=== PATIENT | male | born 1955 | race Caucasian/White ===

== ENCOUNTER 2018-07-15 12:34 | Emergency (ER) | payer MEDICAID, SELFPAY ==
[2018-07-15] VITALS (29 sets, daily range): BP systolic 117–149; BP diastolic 68–91; PULSE 75–122; RESP 11–27; TEMP 37.3; O2SAT 95–100
[2018-07-15] MEDS: Ondansetron 4 MG/2 ML VIAL IVP (12:58)
[2018-07-15] MEDS: Normal Saline 1,000 ML 1000 ML IV (12:59)
[2018-07-15 13:00] LABS: Abs Immature Grans 0.03 k/cumm (0.0-0.09); Absolute Basophil Count 0.04 k/cumm (0.0-0.2); Absolute Eosinophil Count 0.02 k/cumm (0.0-0.7); Absolute Lymphocyte Count 0.98 k/cumm (1.2-3.4); Absolute Monocyte Count 0.66 k/cumm (0.11-0.7); Absolute Neutrophil Count 4.58 k/cumm (1.2-6.7); Basophils % 0.6; Eosinophils % 0.3; HCT 35.1 % (40.0-50.0); HGB 10.8 g/dL (13.5-17.5); Immature Grans % 0.5; Lymphocytes % 15.5; Mean Corp. HGB Concentration 30.8 g/dL (32.0-36.0); Mean Corpuscular Hemoglobin 27.6 pg (27.0-33.0); Mean Corpuscular Volume 89.5 fL (80-95); Mean Platelet Volume 10.9 fL (8.0-11.0); Monocytes % 10.5; Neutrophils % 72.6; Platelet Count 139 x1000/uL (130-400); RBC 3.92 m/cumm (4.50-6.00); White Blood Cell Count 6.31 k/cumm (4.4-10.8)
[2018-07-15] MEDS: PANTOPRAZOLE 80 MG in Normal Saline 100 ML 10 MG IV (13:11)
[2018-07-15 13:16] LABS: INR 1.5 (1.0-3.5); Prothrombin Time 14.5 sec (9.3-10.8)
[2018-07-15 13:17] LABS: ALT 52 U/L (12-78); AST 89 U/L (15-37); Albumin 2.4 g/dL (3.4-5.0); Alkaline Phosphatase 100 U/L (46-116); Anion Gap 9.9 mmol/L (3-11); BUN 22 mg/dL (7-18); Bilirubin, Total 1.7 mg/dL (0.2-1.0); CO2 26.1 mmol/L (21.0-32.0); CREATININE 0.92 mg/dL (0.70-1.30); Calcium 7.6 mg/dL (8.5-10.1); Chloride 103 mmol/L (98-107); Glucose 110 mg/dL (70-100); Lipase 159 U/L (73-393); Potassium 3.9 mmol/L (3.5-5.1); Sodium 139 mmol/L (136-145); Total Protein 7.6 g/dL (6.4-8.2)
--- NOTE | 2018-07-15 13:44 | DI.CT_ITS ---
SYMPTOM/DIAGNOSIS: ABD PAIN ABDOMEN AND PELVIC CT: There are no prior comparison exams. Images were performed from the lung bases through the ischial tuberosities after IV and without oral contrast. A 5 mm. nodule is seen peripherally at the posterior left lung base. There are mild changes of dependent atelectasis. The liver has a cirrhotic appearance. There is a question of a rounded mass near the dome of the liver. Other low density areas are seen which likely represent cysts. There is ascites around the liver and a small amount of fluid along the paracolic gutters into the pelvis. There is some fluid around the gallbladder. Gallstones are seen. There is no biliary dilatation. The adrenals and pancreas are unremarkable. There is a small lesion on the right kidney, too small to characterize. A cyst is noted at the upper and mid right kidney. There is no hydronephrosis. Multiple large diverticula are seen in the sigmoid colon. There is some surrounding fluid which is likely due to the ascites. No definite diverticulitis is seen. The appendix appears normal. There is no small bowel dilatation. The bladder is unremarkable. There are prostate calcifications. The aorta is normal in diameter. Small lymph nodes are noted in both groin regions. No pathologically enlarged lymph nodes are seen. There are degenerative changes of the spine, greatest at L 4-5 and L 5-S 1. IMPRESSION: 1. Nodular cirrhotic appearing liver with a question of a mass near the dome. An MRI could be performed for further evaluation. 2. Gallstones are identified. There are no definite findings of acute cholecystitis. 3. 5mm nodule in the left lower lobe. If the patient is at high risk for lung cancer, a follow up screening chest CT could be performed in 12 months.
--- NOTE | 2018-07-15 14:03 | W.ED.GENAD ---
Discharge Plan Disposition Patient Disposition: AGAINST MEDICAL ADVICE Condition: Poor Discharge Details Chief Complaint: GI Bleed Clinical Impression: Acute GI bleeding, Alcoholism, Abnormal CT of the abdomen Primary Care Provider: NONE,NONE ED Provider: Leanna Santillan Discharge Instructions Instructions: Gastritis (ED), Gastrointestinal Bleeding (ED), Anemia (ED), Alcohol Dependence (ED) Additional Instructions: You have elected to leave the emergency department AGAINST MEDICAL ADVICE. You may return to the emergency department at anytime if you change your mind. The risks of leaving AGAINST MEDICAL ADVICE are or permanent disability. It is extremely important that you make an appointment to be seen in follow-up by your primary care doctor this week. Please call [phone] if you have any problems scheduling this appointment. Please return immediately to the emergency department he develop any new or worsening symptoms were to become otherwise concerned. Discharge Data Discharge Date/Time-TO BE ENTERED AT DEPARTURE: 07/15/18 18:33 Medical Decision Making Eddago Henry is a 63 y/o man with h/o GI bleed in the past, etoh abuse, HTN who presented to the emergency department with hematemesis today, melena since yesterday. On exam Pt is non-toxic appearing with good color. Appears comfortable. Mild lower abd TTP without peroitoneal signs. Concern for UGIB 2/2 alcoholic gastritis vs varices vs PUD vs other, anemia, metabolic/lyte disturbance, possible impending onset of massive GIB, also unclear etiology of lower abd pain. Plan for PIVx2, IV protonix, IV octreotide, IVF, screening labs, telemetry, CT a/p. Will monitor and reassess. Pt declines anti-emetics. Pt without vomiting in ED. One small BM hemoccult+. Pt reports volume of BM much less than previous over past few days. Labs show anemia. Pt remains hemodynamically stable. Plan for CT. OSH records obtained. Will obtain 4hr H&H. CT shows ascites, possible liver Ca, pulm nodule, diffuse bowel thickening, gastritis. Discussed Pt presentation and results with Dr. Colon of surgery: no abx for colitis given clinical picture, likely 2/2 ascites, no other acute intervention based on imaging, Pt cannot be admitted to [facility] 2/2 possible varices and no bed availability. I discussed findings with the Pt. Pt reports that he has been aware of liver changes, pulm nodule, possible cancer for some time but does not want further work-up has refused biopsy several times in the past. No further BMs, no vomiting in ED. Pt reports that he feels at baseline. Plan for transfer for GIB/etoh dependency tx as if Pt goes home and continues to drink, likely that GIB will continue/worsen. Pt refuses admission/transfer. States that he wants to go home tonight and sleep in his bed, and will present to [facility] tomorrow for admission. I repeatedly told the Pt that he may not admitted tomorrow if he chooses this course. Pt reports that he prefers to go to [place], but also refuses to be transferred by ambulance. Explained to Pt that he would likely not be transferred to [place] in as many closer appropriate facilities. Repeatedly explained to Pt risk of , permanent disability if he chooses to leave against medical advice. Pt verbalizes understanding of risks, states that he wants to go home, and will present to [place] Ed if he has any further symptoms. Pt has decision making capacity. Lengthy discussion with Pt that he may RTED at any time if he changes his mind, RTED precautions, and importance of outpt f/u with PCP. Medical Records Medical records reviewed: Yes I reviewed the patient's medical records. Imaging Data Radiologic Study: Attestation: I personally reviewed and interpreted this imaging study as follows: Radiologist's impression: FINDINGS: Lower thorax: Series 7 image 9 demonstrates a nonspecific 5 mm left pulmonary nodule. There is atelectasis or scarring at the lung bases. Gas is noted in the distal esophagus which can be seen with reflux. There is esophageal wall prominence that can be seen with inflammation or pathology. ABDOMEN: Liver: There is a shrunken nodular appearance to the liver most consistent with cirrhotic morphology. On liver windows, there is a vaguely enhancing mass in the anterior hepatic dome, series 7 image 13, 4.5 cm, which demonstrates a central lucency. Malignant process such as hepatocellular carcinoma is not excluded. MRI, hepatic mass protocol, is recommended. Additional too small to characterize hypodensities are seen. Gallbladder and bile ducts: Gallstones are noted within the gallbladder with some associated pericholecystic fluid. This can be seen with cholecystitis in the appropriate clinical setting. Ultrasound could be considered. Pancreas: See Intraperitoneal Space Finding. Spleen: Normal. No splenomegaly. Adrenals: Bulky appearance to the left adrenal gland. Kidneys and ureters: 6.6 cm cystic structure in the right kidney which may contain a thin septation. 1.3 cm 30 Hounsfield unit hypodensity in the left kidney (series 7 image 26) which does not fulfill the criteria for a simple cyst. Renal mass protocol CT scan or ultrasound could be considered for further evaluation. Stomach and bowel: There is gastric wall prominence proximally. Although under distention may be contributing, there is a hazy appearance to the fat surrounding the stomach. Finding should therefore be correlated with any concern for gastritis or other abnormalities. Evaluation of the bowel is limited secondary to lack of oral contrast. There is some wall prominence to the duodenum and proximal jejunum in the left upper quadrant of the abdomen (series 7 image 34). Some associated fluid and prominent lymph nodes are seen. These loops of bowel measure up to 2.8 cm, mildly dilated. Subtle internal hernias are possible in this location. There is some wall prominence to the ascending and proximal transverse colon which should be correlated with any concern for colitis (infectious, inflammatory, or ischemic. There is sigmoid diverticulosis with some adjacent fluid. Stranding surrounds some diverticula in the descending colon. Appendix: The appendix is not clearly seen. PELVIS: Bladder: There is a punctate calcification in the anterior superior aspect of the urinary bladder. This may be within the urinary bladder wall and could place the patient at increased risk for malignancy. Reproductive: Prostatic calcifications are seen. ABDOMEN and PELVIS: Intraperitoneal space: There is perihepatic, perisplenic, and pelvic free fluid. Free fluid is also seen in between loops of bowel. There is haziness in the fat surrounding the pancreas which could be related to the fluid seen elsewhere. However, this should be correlated with any concern for pancreatitis. No free air. Bones/joints: Skeletal degenerative changes. Scattered punctate sclerotic foci in the bones. In the absence of known malignancy, these most likely represent bone islands. Disc space narrowing at L4-5 and L5-S1. There is corresponding gas in the disc spaces at these levels and at multiple additional levels. In the absence of concern for infection, this most likely represents vacuum phenomenon. Scoliosis. Soft tissues: Small fat-containing umbilical hernia. Vasculature: No abdominal aortic aneurysm. Vascular calcifications. Lymph nodes: See Stomach And Bowel Finding. IMPRESSION: 1. Cirrhotic liver morphology with a vaguely enhancing mass as described. Malignant process such as hepatocellular carcinoma is not excluded. MRI, hepatic mass protocol, is recommended. 2. Gallstones with pericholecystic fluid. This can be seen with cholecystitis in the appropriate clinical setting. Ultrasound could be considered. 3. Free fluid and areas of stranding in the abdomen and pelvis. This may be related to the patient's cirrhosis. Since portions surround the pancreas and descending/sigmoid colon diverticula, a component of pancreatitis or diverticulitis is not excluded. 4. Gastric wall prominence proximally. Although under distention may be contributing, there is a hazy appearance to the fat surrounding the stomach. Finding should therefore be correlated with any concern for gastritis. 5. Some wall prominence to the duodenum and proximal jejunum in the left upper quadrant. Some associated fluid and prominent lymph nodes are seen. These loops are mildly dilated. Finding should be correlated with any concern for enteritis or early/partial obstructive process. 6. Wall prominence to the ascending and proximal transverse colon which should be correlated with any concern for colitis (infectious, inflammatory, or ischemic). 7. Lesion in the left kidney which does not fill the criteria for a simple cyst. Other findings as above. Lab Data Lab results reviewed: Yes I reviewed the patient's lab results. Laboratory Tests Range/Units 07/15/18 07/15/18 07/15/18 12:45 12:45 12:45 WBC (4.4-10.8) k/cumm 6.31 RBC (4.50-6.00) m/cumm 3.92 L Hgb (13.5-17.5) g/dL 10.8 L Hct (40.0-50.0) % 35.1 L MCV (80-95) fL 89.5 MCH (27.0-33.0) pg 27.6 MCHC (32.0-36.0) g/dL 30.8 L RDW (11.8-14.1) % 16.0 H Plt Count (130-400) x1000/uL 139 MPV (8.0-11.0) fL 10.9 Immature Gran % 0.5 Neutrophils % 72.6 Lymphocytes % 15.5 Monocytes % 10.5 Eosinophils % 0.3 Basophils % 0.6 Absolute Neutrophils (1.2-6.7) k/cumm 4.58 Absolute Lymphocytes (1.2-3.4) k/cumm 0.98 L Absolute Monocytes (0.11-0.7) k/cumm 0.66 Absolute Eosinophils (0.0-0.7) k/cumm 0.02 Absolute Basophils (0.0-0.2) k/cumm 0.04 PT (9.3-10.8) sec 14.5 H INR (1.0-3.5) 1.5 Sodium (136-145) mmol/L 139 Potassium (3.5-5.1) mmol/L 3.9 Chloride (98-107) mmol/L 103 Carbon Dioxide (21.0-32.0) mmol/L 26.1 Anion Gap (3-11) mmol/L 9.9 BUN (7-18) mg/dL 22 H Creatinine (0.70-1.30) mg/dL 0.92 Estimated GFR/1.73 m2 (mL/min/1.73m2) >= 60.00 Glucose (70-100) mg/dL 110 H Calcium (8.5-10.1) mg/dL 7.6 L Total Bilirubin (0.2-1.0) mg/dL 1.7 H AST (15-37) U/L 89 H ALT (12-78) U/L 52 Alkaline Phosphatase (46-116) U/L 100 Total Protein (6.4-8.2) g/dL 7.6 Albumin (3.4-5.0) g/dL 2.4 L Lipase (73-393) U/L 159 Patient ABO/Rh Antibody Screen Range/Units 07/15/18 07/15/18 12:45 17:10 WBC (4.4-10.8) k/cumm RBC (4.50-6.00) m/cumm Hgb (13.5-17.5) g/dL 9.4 L Hct (40.0-50.0) % 30.1 L MCV (80-95) fL MCH (27.0-33.0) pg MCHC (32.0-36.0) g/dL RDW (11.8-14.1) % Plt Count (130-400) x1000/uL MPV (8.0-11.0) fL Immature Gran % Neutrophils % Lymphocytes % Monocytes % Eosinophils % Basophils % Absolute Neutrophils (1.2-6.7) k/cumm Absolute Lymphocytes (1.2-3.4) k/cumm Absolute Monocytes (0.11-0.7) k/cumm Absolute Eosinophils (0.0-0.7) k/cumm Absolute Basophils (0.0-0.2) k/cumm PT (9.3-10.8) sec INR (1.0-3.5) Sodium (136-145) mmol/L Potassium (3.5-5.1) mmol/L Chloride (98-107) mmol/L Carbon Dioxide (21.0-32.0) mmol/L Anion Gap (3-11) mmol/L BUN (7-18) mg/dL Creatinine (0.70-1.30) mg/dL Estimated GFR/1.73 m2 (mL/min/1.73m2) Glucose (70-100) mg/dL Calcium (8.5-10.1) mg/dL Total Bilirubin (0.2-1.0) mg/dL AST (15-37) U/L ALT (12-78) U/L Alkaline Phosphatase (46-116) U/L Total Protein (6.4-8.2) g/dL Albumin (3.4-5.0) g/dL Lipase (73-393) U/L Patient ABO/Rh A Negative Antibody Screen Negative ECG Data Attestation: I personally reviewed and interpreted this ECG (s) as follows: Interpretation: EKG shows ST at 113 with nl axis, no STEMI HPI General Mode of arrival: EMS. Date/Time Provider Initiated Documentation: 07/15/18 12:41. Limitations to Documentation: no limitations. Information obtained by: patient, RN notes reviewed and old records reviewed. HPI Narrative: Benjamín Henry is a 63 y/o man with h/o HTN, alcohol abuse, GI bleed in the past presenting to the emergency department with vomiting blood and dark stool. Pt reports that he noticed his stool was black and loose yesterday. This morning he began vomiting what he reports as significant amounts of bright red blood, with continued dark stool. He also reports lower abd pain since this morning. Pt reports that he drinks a lot of whiskey every night, and has drank large amounts of alcohol every night for decades except when he quit drinking for 6 months in 1982. He reports that he had a GI bleed in the past year with similar symptoms as today for which he had an EGD. Does not believe he had esophageal varices or any intervention during EGD. He reports that he has had several other episodes of black stool and vomiting blood which he has not sought care for and which have resolved on their own at home. He denies any other pain, fever, SOB, cough, rash, weakness, n/t. Last etoh was last night, denies withdrawal symptoms at this time. Pt reports that he feels somewhat better upon arrival in ED with no current nausea. Related Data Allergies Allergy/AdvReac Type Severity Reaction Status Date / Time No Known Allergies Allergy Unverified 07/15/18 13:02 General Stated Complaint: GI Bleed RYNE: 2 Review of Systems Review of Systems Constitutional: denies fevers Eyes: denies eye pain ENT: denies facial pain, dental pain, sore throat Cardiovascular: denies chest pain, edema Respiratory: denies SOB, cough GI: reports abdominal pain, hematemesis, melena : denies flank pain MSK: denies back pain, neck pain, arthralgias, myalgias Skin: denies rash Neuro: denies headaches, lightheadedness, weakness PFS Social History Smoking/Tobacco Use Status: Former Tobacco Use alcohol intake: current alcohol intake frequency: 3 or more drinks per day Alcohol type: hard liquor Exam Narrative Exam Narrative: Constitutional: well and [id number], pleasant, conversing normally HENT: head atraumatic, normocephalic normal inspection, mucous membranes moist Eyes: conjunctiva normal, sclera normal, pupils 3mm b/l Neck: no stridor, normal ROM, trachea midline Chest: normal inspection Resp: normal work of breathing, LCTAB Cardio: tachycardic, normal rhythm, no murmur appreciated GI: abdomen soft, non-distended, mildly TTP across lower abd without rebound, guarding, or upper abd TTP Back: normal inspection, no rash Skin: warm, dry, normal color, no rash Neuro: alert, not altered, oriented x3, grossly non-focal, normal tone Ext: no edema Psych: normal mood, normal affect, normal behavior Course Vital Signs Temperature 37.3 C 07/15/18 12:55 Pulse 110 H 07/15/18 12:55 Respiratory Rate 16 07/15/18 12:55 Blood Pressure 119/78 07/15/18 12:55 Pulse Oximetry 98 07/15/18 12:55 Temperature 37.3 C 07/15/18 12:55 Temperature Source Skin 07/15/18 12:55 Pulse 110 H 07/15/18 12:55 Respiratory Rate 16 07/15/18 12:55 Respiratory Effort 07/15/18 12:59 Blood Pressure 119/78 07/15/18 12:55 Blood Pressure Position Sitting 07/15/18 12:55 Pulse Oximetry 98 07/15/18 12:55 Oxygen Delivery Method Room Air 07/15/18 12:55 Oxygen Flow Rate 0 07/15/18 12:55 Lab/Test Results Lab/Test Results: Laboratory Tests Range/Units 07/15/18 07/15/18 07/15/18 12:45 12:45 12:45 WBC (4.4-10.8) k/cumm 6.31 RBC (4.50-6.00) m/cumm 3.92 L Hgb (13.5-17.5) g/dL 10.8 L Hct (40.0-50.0) % 35.1 L MCV (80-95) fL 89.5 MCH (27.0-33.0) pg 27.6 MCHC (32.0-36.0) g/dL 30.8 L RDW (11.8-14.1) % 16.0 H Plt Count (130-400) x1000/uL 139 MPV (8.0-11.0) fL 10.9 Immature Gran % 0.5 Neutrophils % 72.6 Lymphocytes % 15.5 Monocytes % 10.5 Eosinophils % 0.3 Basophils % 0.6 Absolute Neutrophils (1.2-6.7) k/cumm 4.58 Absolute Lymphocytes (1.2-3.4) k/cumm 0.98 L Absolute Monocytes (0.11-0.7) k/cumm 0.66 Absolute Eosinophils (0.0-0.7) k/cumm 0.02 Absolute Basophils (0.0-0.2) k/cumm 0.04 PT (9.3-10.8) sec 14.5 H INR (1.0-3.5) 1.5 Sodium (136-145) mmol/L 139 Potassium (3.5-5.1) mmol/L 3.9 Chloride (98-107) mmol/L 103 Carbon Dioxide (21.0-32.0) mmol/L 26.1 Anion Gap (3-11) mmol/L 9.9 BUN (7-18) mg/dL 22 H Creatinine (0.70-1.30) mg/dL 0.92 Estimated GFR/1.73 m2 (mL/min/1.73m2) >= 60.00 Glucose (70-100) mg/dL 110 H Calcium (8.5-10.1) mg/dL 7.6 L Total Bilirubin (0.2-1.0) mg/dL 1.7 H AST (15-37) U/L 89 H ALT (12-78) U/L 52 Alkaline Phosphatase (46-116) U/L 100 Total Protein (6.4-8.2) g/dL 7.6 Albumin (3.4-5.0) g/dL 2.4 L Lipase (73-393) U/L 159 Patient ABO/Rh Antibody Screen Range/Units 07/15/18 12:45 WBC (4.4-10.8) k/cumm RBC (4.50-6.00) m/cumm Hgb (13.5-17.5) g/dL Hct (40.0-50.0) % MCV (80-95) fL MCH (27.0-33.0) pg MCHC (32.0-36.0) g/dL RDW (11.8-14.1) % Plt Count (130-400) x1000/uL MPV (8.0-11.0) fL Immature Gran % Neutrophils % Lymphocytes % Monocytes % Eosinophils % Basophils % Absolute Neutrophils (1.2-6.7) k/cumm Absolute Lymphocytes (1.2-3.4) k/cumm Absolute Monocytes (0.11-0.7) k/cumm Absolute Eosinophils (0.0-0.7) k/cumm Absolute Basophils (0.0-0.2) k/cumm PT (9.3-10.8) sec INR (1.0-3.5) Sodium (136-145) mmol/L Potassium (3.5-5.1) mmol/L Chloride (98-107) mmol/L Carbon Dioxide (21.0-32.0) mmol/L Anion Gap (3-11) mmol/L BUN (7-18) mg/dL Creatinine (0.70-1.30) mg/dL Estimated GFR/1.73 m2 (mL/min/1.73m2) Glucose (70-100) mg/dL Calcium (8.5-10.1) mg/dL Total Bilirubin (0.2-1.0) mg/dL AST (15-37) U/L ALT (12-78) U/L Alkaline Phosphatase (46-116) U/L Total Protein (6.4-8.2) g/dL Albumin (3.4-5.0) g/dL Lipase (73-393) U/L Patient ABO/Rh A Negative Antibody Screen Negative
[2018-07-15] MEDS: Omnipaque 350 MG/ML 100 ML BTL IJ (16:29)
--- NOTE | 2018-07-15 17:01 | DI.VRAD_ITS ---
EXAM: CT Abdomen and Pelvis With Intravenous Contrast EXAM DATE/TIME: 07/15/2018 1:45 PM CLINICAL HISTORY: 63 years old, male; Pain; Abdominal pain; Generalized; Patient HX: Abd pain TECHNIQUE: Axial computed tomography images of the abdomen and pelvis with intravenous contrast. Coronal and sagittal reformatted images were created and reviewed. COMPARISON: No relevant prior studies available. FINDINGS: Lower thorax: Series 7 image 9 demonstrates a nonspecific 5 mm left pulmonary nodule. There is atelectasis or scarring at the lung bases. Gas is noted in the distal esophagus which can be seen with reflux. There is esophageal wall prominence that can be seen with inflammation or pathology. ABDOMEN: Liver: There is a shrunken nodular appearance to the liver most consistent with cirrhotic morphology. On liver windows, there is a vaguely enhancing mass in the anterior hepatic dome, series 7 image 13, 4.5 cm, which demonstrates a central lucency. Malignant process such as hepatocellular carcinoma is not excluded. MRI, hepatic mass protocol, is recommended. Additional too small to characterize hypodensities are seen. Gallbladder and bile ducts: Gallstones are noted within the gallbladder with some associated pericholecystic fluid. This can be seen with cholecystitis in the appropriate clinical setting. Ultrasound could be considered. Pancreas: See Intraperitoneal Space Finding. Spleen: Normal. No splenomegaly. Adrenals: Bulky appearance to the left adrenal gland. Kidneys and ureters: 6.6 cm cystic structure in the right kidney which may contain a thin septation. 1.3 cm 30 Hounsfield unit hypodensity in the left kidney (series 7 image 26) which does not fulfill the criteria for a simple cyst. Renal mass protocol CT scan or ultrasound could be considered for further evaluation. Stomach and bowel: There is gastric wall prominence proximally. Although under distention may be contributing, there is a hazy appearance to the fat surrounding the stomach. Finding should therefore be correlated with any concern for gastritis or other abnormalities. Evaluation of the bowel is limited secondary to lack of oral contrast. There is some wall prominence to the duodenum and proximal jejunum in the left upper quadrant of the abdomen (series 7 image 34). Some associated fluid and prominent lymph nodes are seen. These loops of bowel measure up to 2.8 cm, mildly dilated. Subtle internal hernias are possible in this location. There is some wall prominence to the ascending and proximal transverse colon which should be correlated with any concern for colitis (infectious, inflammatory, or ischemic. There is sigmoid diverticulosis with some adjacent fluid. Stranding surrounds some diverticula in the descending colon. Appendix: The appendix is not clearly seen. PELVIS: Bladder: There is a punctate calcification in the anterior superior aspect of the urinary bladder. This may be within the urinary bladder wall and could place the patient at increased risk for malignancy. Reproductive: Prostatic calcifications are seen. ABDOMEN and PELVIS: Intraperitoneal space: There is perihepatic, perisplenic, and pelvic free fluid. Free fluid is also seen in between loops of bowel. There is haziness in the fat surrounding the pancreas which could be related to the fluid seen elsewhere. However, this should be correlated with any concern for pancreatitis. No free air. Bones/joints: Skeletal degenerative changes. Scattered punctate sclerotic foci in the bones. In the absence of known malignancy, these most likely represent bone islands. Disc space narrowing at L4-5 and L5-S1. There is corresponding gas in the disc spaces at these levels and at multiple additional levels. In the absence of concern for infection, this most likely represents vacuum phenomenon. Scoliosis. Soft tissues: Small fat-containing umbilical hernia. Vasculature: No abdominal aortic aneurysm. Vascular calcifications. Lymph nodes: See Stomach And Bowel Finding. IMPRESSION: 1. Cirrhotic liver morphology with a vaguely enhancing mass as described. Malignant process such as hepatocellular carcinoma is not excluded. MRI, hepatic mass protocol, is recommended. 2. Gallstones with pericholecystic fluid. This can be seen with cholecystitis in the appropriate clinical setting. Ultrasound could be considered. 3. Free fluid and areas of stranding in the abdomen and pelvis. This may be related to the patient's cirrhosis. Since portions surround the pancreas and descending/sigmoid colon diverticula, a component of pancreatitis or diverticulitis is not excluded. 4. Gastric wall prominence proximally. Although under distention may be contributing, there is a hazy appearance to the fat surrounding the stomach. Finding should therefore be correlated with any concern for gastritis. 5. Some wall prominence to the duodenum and proximal jejunum in the left upper quadrant. Some associated fluid and prominent lymph nodes are seen. These loops are mildly dilated. Finding should be correlated with any concern for enteritis or early/partial obstructive process. 6. Wall prominence to the ascending and proximal transverse colon which should be correlated with any concern for colitis (infectious, inflammatory, or ischemic). 7. Lesion in the left kidney which does not fill the criteria for a simple cyst. Other findings as above. Dictated and Authenticated by: Jolynn Ricketts MD. Ordering:BRITTANY SHAVER MD
[2018-07-15 17:12] LABS: HCT 30.1 % (40.0-50.0); HGB 9.4 g/dL (13.5-17.5)
--- NOTE | 2018-07-16 10:50 | PDOC.ERCMPRO ---
Care Management Progress Note 07/15-Edward left the Emergency Department AMA. Diagnosis of GI bleed, gastritis, anemia, ETOH. No PCP, Yanely Rodriguez remediation consultant. Discharge instructions request PCP f/u this week. Referral faxed to ONEL corado am.
--- NOTE | 2018-07-16 10:51 | CMPROGNOTE_ITS ---
Care Management Progress Note 07/15-Edward left the Emergency Department AMA. Diagnosis of GI bleed, gastritis , anemia, ETOH. No PCP, Yanely Rodriguez coding consultant. Discharge instructions request PCP f/u this week. Referral faxed to ONEL corado am.
--- NOTE | 2018-07-17 09:52 | ED.GENADUL_ITS ---
Discharge Plan Disposition Patient Disposition: AGAINST MEDICAL ADVICE Condition: Poor Discharge Details Chief Complaint: GI Bleed Clinical Impression: Acute GI bleeding, Alcoholism, Abnormal CT of the abdomen Primary Care Provider: NONE,NONE ED Provider: Leanna Santillan Discharge Instructions Instructions: Gastritis (ED), Gastrointestinal Bleeding (ED), Anemia (ED), Alcohol Dependence (ED) Additional Instructions: You have elected to leave the emergency department AGAINST MEDICAL ADVICE. You may return to the emergency department at anytime if you change your mind. The risks of leaving AGAINST MEDICAL ADVICE are or permanent disability. It is extremely important that you make an appointment to be seen in follow-up by your primary care doctor this week. Please call [phone] if you have any problems scheduling this appointment. Please return immediately to the emergency department he develop any new or worsening symptoms were to become otherwise concerned. Discharge Data Discharge Date/Time-TO BE ENTERED AT DEPARTURE: 07/15/18 18:33 Medical Decision Making Eddago Henry is a 63 y/o man with h/o GI bleed in the past, etoh abuse, HTN who presented to the emergency department with hematemesis today, melena since yesterday. On exam Pt is non-toxic appearing with good color. Appears comfortable. Mild lower abd TTP without peroitoneal signs. Concern for UGIB 2/2 alcoholic gastritis vs varices vs PUD vs other, anemia, metabolic/lyte disturbance, possible impending onset of massive GIB, also unclear etiology of lower abd pain. Plan for PIVx2, IV protonix, IV octreotide, IVF, screening labs , telemetry, CT a/p. Will monitor and reassess. Pt declines anti-emetics. Pt without vomiting in ED. One small BM hemoccult+. Pt reports volume of BM much less than previous over past few days. Labs show anemia. Pt remains hemodynamically stable. Plan for CT. OSH records obtained. Will obtain 4hr H&H. CT shows ascites, possible liver Ca, pulm nodule, diffuse bowel thickening, gastritis. Discussed Pt presentation and results with Dr. Colon of surgery: no abx for colitis given clinical picture, likely 2/2 ascites, no other acute intervention based on imaging, Pt cannot be admitted to [facility] 2/2 possible varices and no bed availability. I discussed findings with the Pt. Pt reports that he has been aware of liver changes, pulm nodule, possible cancer for some time but does not want further work-up has refused biopsy several times in the past. No further BMs, no vomiting in ED. Pt reports that he feels at baseline. Plan for transfer for GIB/ etoh dependency tx as if Pt goes home and continues to drink, likely that GIB will continue/worsen. Pt refuses admission/transfer. States that he wants to go home tonight and sleep in his bed, and will present to [facility] tomorrow for admission. I repeatedly told the Pt that he may not admitted tomorrow if he chooses this course. Pt reports that he prefers to go to [place], but also refuses to be transferred by ambulance. Explained to Pt that he would likely not be transferred to [place] in as many closer appropriate facilities. Repeatedly explained to Pt risk of , permanent disability if he chooses to leave against medical advice. Pt verbalizes understanding of risks , states that he wants to go home, and will present to [place] [facility] if he has any further symptoms. Pt has decision making capacity. Lengthy discussion with Pt that he may RTED at any time if he changes his mind, RTED precautions, and importance of outpt f/u with PCP. Medical Records Medical records reviewed: Yes I reviewed the patient's medical records. Imaging Data Radiologic Study: Attestation: I personally reviewed and interpreted this imaging study as follows: Radiologist's impression: FINDINGS: Lower thorax: Series 7 image 9 demonstrates a nonspecific 5 mm left pulmonary nodule. There is atelectasis or scarring at the lung bases. Gas is noted in the distal esophagus which can be seen with reflux. There is esophageal wall prominence that can be seen with inflammation or pathology. ABDOMEN: Liver: There is a shrunken nodular appearance to the liver most consistent with cirrhotic morphology. On liver windows, there is a vaguely enhancing mass in the anterior hepatic dome, series 7 image 13, 4.5 cm, which demonstrates a central lucency. Malignant process such as hepatocellular carcinoma is not excluded. MRI, hepatic mass protocol, is recommended. Additional too small to characterize hypodensities are seen. Gallbladder and bile ducts: Gallstones are noted within the gallbladder with some associated pericholecystic fluid. This can be seen with cholecystitis in the appropriate clinical setting. Ultrasound could be considered. Pancreas: See Intraperitoneal Space Finding. Spleen: Normal. No splenomegaly. Adrenals: Bulky appearance to the left adrenal gland. Kidneys and ureters: 6.6 cm cystic structure in the right kidney which may contain a thin septation. 1.3 cm 30 Hounsfield unit hypodensity in the left kidney (series 7 image 26) which does not fulfill the criteria for a simple cyst. Renal mass protocol CT scan or ultrasound could be considered for further evaluation. Stomach and bowel: There is gastric wall prominence proximally. Although under distention may be contributing, there is a hazy appearance to the fat surrounding the stomach. Finding should therefore be correlated with any concern for gastritis or other abnormalities. Evaluation of the bowel is limited secondary to lack of oral contrast. There is some wall prominence to the duodenum and proximal jejunum in the left upper quadrant of the abdomen (series 7 image 34). Some associated fluid and prominent lymph nodes are seen. These loops of bowel measure up to 2.8 cm, mildly dilated. Subtle internal hernias are possible in this location. There is some wall prominence to the ascending and proximal transverse colon which should be correlated with any concern for colitis (infectious, inflammatory, or ischemic. There is sigmoid diverticulosis with some adjacent fluid. Stranding surrounds some diverticula in the descending colon. Appendix: The appendix is not clearly seen. PELVIS: Bladder: There is a punctate calcification in the anterior superior aspect of the urinary bladder. This may be within the urinary bladder wall and could place the patient at increased risk for malignancy. Reproductive: Prostatic calcifications are seen. ABDOMEN and PELVIS: Intraperitoneal space: There is perihepatic, perisplenic, and pelvic free fluid. Free fluid is also seen in between loops of bowel. There is haziness in the fat surrounding the pancreas which could be related to the fluid seen elsewhere. However, this should be correlated with any concern for pancreatitis. No free air. Bones/joints: Skeletal degenerative changes. Scattered punctate sclerotic foci in the bones. In the absence of known malignancy, these most likely represent bone islands. Disc space narrowing at L4-5 and L5-S1. There is corresponding gas in the disc spaces at these levels and at multiple additional levels. In the absence of concern for infection, this most likely represents vacuum phenomenon. Scoliosis. Soft tissues: Small fat-containing umbilical hernia. Vasculature: No abdominal aortic aneurysm. Vascular calcifications. Lymph nodes: See Stomach And Bowel Finding. IMPRESSION: 1. Cirrhotic liver morphology with a vaguely enhancing mass as described. Malignant process such as hepatocellular carcinoma is not excluded. MRI, hepatic mass protocol, is recommended. 2. Gallstones with pericholecystic fluid. This can be seen with cholecystitis in the appropriate clinical setting. Ultrasound could be considered. 3. Free fluid and areas of stranding in the abdomen and pelvis. This may be related to the patient's cirrhosis. Since portions surround the pancreas and descending/sigmoid colon diverticula, a component of pancreatitis or diverticulitis is not excluded. 4. Gastric wall prominence proximally. Although under distention may be contributing, there is a hazy appearance to the fat surrounding the stomach. Finding should therefore be correlated with any concern for gastritis. 5. Some wall prominence to the duodenum and proximal jejunum in the left upper quadrant. Some associated fluid and prominent lymph nodes are seen. These loops are mildly dilated. Finding should be correlated with any concern for enteritis or early/partial obstructive process. 6. Wall prominence to the ascending and proximal transverse colon which should be correlated with any concern for colitis (infectious, inflammatory, or ischemic). 7. Lesion in the left kidney which does not fill the criteria for a simple cyst. Other findings as above. Lab Data Lab results reviewed: Yes I reviewed the patient's lab results. Laboratory Tests Range/Units 07/15/18 07/15/18 07/15/18 12:45 12:45 12:45 WBC (4.4-10.8) k/cumm 6.31 RBC (4.50-6.00) m/cumm 3.92 L Hgb (13.5-17.5) g/dL 10.8 L Hct (40.0-50.0) % 35.1 L MCV (80-95) fL 89.5 MCH (27.0-33.0) pg 27.6 MCHC (32.0-36.0) g/dL 30.8 L RDW (11.8-14.1) % 16.0 H Plt Count (130-400) x1000/uL 139 MPV (8.0-11.0) fL 10.9 Immature Gran % 0.5 Neutrophils % 72.6 Lymphocytes % 15.5 Monocytes % 10.5 Eosinophils % 0.3 Basophils % 0.6 Absolute Neutrophils (1.2-6.7) k/cumm 4.58 Absolute Lymphocytes (1.2-3.4) k/cumm 0.98 L Absolute Monocytes (0.11-0.7) k/cumm 0.66 Absolute Eosinophils (0.0-0.7) k/cumm 0.02 Absolute Basophils (0.0-0.2) k/cumm 0.04 PT (9.3-10.8) sec 14.5 H INR (1.0-3.5) 1.5 Sodium (136-145) mmol/L 139 Potassium (3.5-5.1) mmol/L 3.9 Chloride (98-107) mmol/L 103 Carbon Dioxide (21.0-32.0) mmol/L 26.1 Anion Gap (3-11) mmol/L 9.9 BUN (7-18) mg/dL 22 H Creatinine (0.70-1.30) mg/dL 0.92 Estimated GFR/1.73 m2 (mL/min/1.73m2) >= 60.00 Glucose (70-100) mg/dL 110 H Calcium (8.5-10.1) mg/dL 7.6 L Total Bilirubin (0.2-1.0) mg/dL 1.7 H AST (15-37) U/L 89 H ALT (12-78) U/L 52 Alkaline Phosphatase (46-116) U/L 100 Total Protein (6.4-8.2) g/dL 7.6 Albumin (3.4-5.0) g/dL 2.4 L Lipase (73-393) U/L 159 Patient ABO/Rh Antibody Screen Range/Units 07/15/18 07/15/18 12:45 17:10 WBC (4.4-10.8) k/cumm RBC (4.50-6.00) m/cumm Hgb (13.5-17.5) g/dL 9.4 L Hct (40.0-50.0) % 30.1 L MCV (80-95) fL MCH (27.0-33.0) pg MCHC (32.0-36.0) g/dL RDW (11.8-14.1) % Plt Count (130-400) x1000/uL MPV (8.0-11.0) fL Immature Gran % Neutrophils % Lymphocytes % Monocytes % Eosinophils % Basophils % Absolute Neutrophils (1.2-6.7) k/cumm Absolute Lymphocytes (1.2-3.4) k/cumm Absolute Monocytes (0.11-0.7) k/cumm Absolute Eosinophils (0.0-0.7) k/cumm Absolute Basophils (0.0-0.2) k/cumm PT (9.3-10.8) sec INR (1.0-3.5) Sodium (136-145) mmol/L Potassium (3.5-5.1) mmol/L Chloride (98-107) mmol/L Carbon Dioxide (21.0-32.0) mmol/L Anion Gap (3-11) mmol/L BUN (7-18) mg/dL Creatinine (0.70-1.30) mg/dL Estimated GFR/1.73 m2 (mL/min/1.73m2) Glucose (70-100) mg/dL Calcium (8.5-10.1) mg/dL Total Bilirubin (0.2-1.0) mg/dL AST (15-37) U/L ALT (12-78) U/L Alkaline Phosphatase (46-116) U/L Total Protein (6.4-8.2) g/dL Albumin (3.4-5.0) g/dL Lipase (73-393) U/L Patient ABO/Rh A Negative Antibody Screen Negative ECG Data Attestation: I personally reviewed and interpreted this ECG (s) as follows: Interpretation: EKG shows ST at 113 with nl axis, no STEMI HPI General Mode of arrival: EMS . Date/Time Provider Initiated Documentation: 07/15/18 12:41 . Limitations to Documentation: no limitations . Information obtained by: patient, RN notes reviewed and old records reviewed . HPI Narrative: Benjamín Henry is a 63 y/o man with h/o HTN, alcohol abuse, GI bleed in the past presenting to the emergency department with vomiting blood and dark stool. Pt reports that he noticed his stool was black and loose yesterday. This morning he began vomiting what he reports as significant amounts of bright red blood, with continued dark stool. He also reports lower abd pain since this morning. Pt reports that he drinks a lot of whiskey every night, and has drank large amounts of alcohol every night for decades except when he quit drinking for 6 months in 1982. He reports that he had a GI bleed in the past year with similar symptoms as today for which he had an EGD. Does not believe he had esophageal varices or any intervention during EGD. He reports that he has had several other episodes of black stool and vomiting blood which he has not sought care for and which have resolved on their own at home. He denies any other pain, fever, SOB, cough, rash, weakness, n/t. Last etoh was last night, denies withdrawal symptoms at this time. Pt reports that he feels somewhat better upon arrival in ED with no current nausea. Related Data Allergies Allergy/AdvReac Type Severity Reaction Status Date / Time No Known Allergies Allergy Unverified 07/15/18 13:02 General Stated Complaint: GI Bleed RYNE: 2 Review of Systems Review of Systems Constitutional: denies fevers Eyes: denies eye pain ENT: denies facial pain, dental pain, sore throat Cardiovascular: denies chest pain, edema Respiratory: denies SOB, cough GI: reports abdominal pain, hematemesis, melena : denies flank pain MSK: denies back pain, neck pain, arthralgias, myalgias Skin: denies rash Neuro: denies headaches, lightheadedness, weakness PFS Social History Smoking/Tobacco Use Status: Former Tobacco Use alcohol intake: current alcohol intake frequency: 3 or more drinks per day Alcohol type: hard liquor Exam Narrative Exam Narrative: Constitutional: well and [id number], pleasant, conversing normally HENT: head atraumatic, normocephalic normal inspection, mucous membranes moist Eyes: conjunctiva normal, sclera normal, pupils 3mm b/l Neck: no stridor, normal ROM, trachea midline Chest: normal inspection Resp: normal work of breathing, LCTAB Cardio: tachycardic, normal rhythm, no murmur appreciated GI: abdomen soft, non-distended, mildly TTP across lower abd without rebound, guarding, or upper abd TTP Back: normal inspection, no rash Skin: warm, dry, normal color, no rash Neuro: alert, not altered, oriented x3, grossly non-focal, normal tone Ext: no edema Psych: normal mood, normal affect, normal behavior Course Vital Signs Temperature 37.3 C 07/15/18 12:55 Pulse 110 H 07/15/18 12:55 Respiratory Rate 16 07/15/18 12:55 Blood Pressure 119/78 07/15/18 12:55 Pulse Oximetry 98 07/15/18 12:55 Temperature 37.3 C 07/15/18 12:55 Temperature Source Skin 07/15/18 12:55 Pulse 110 H 07/15/18 12:55 Respiratory Rate 16 07/15/18 12:55 Respiratory Effort 07/15/18 12:59 Blood Pressure 119/78 07/15/18 12:55 Blood Pressure Position Sitting 07/15/18 12:55 Pulse Oximetry 98 07/15/18 12:55 Oxygen Delivery Method Room Air 07/15/18 12:55 Oxygen Flow Rate 0 07/15/18 12:55 Lab/Test Results Lab/Test Results: Laboratory Tests Range/Units 07/15/18 07/15/18 07/15/18 12:45 12:45 12:45 WBC (4.4-10.8) k/cumm 6.31 RBC (4.50-6.00) m/cumm 3.92 L Hgb (13.5-17.5) g/dL 10.8 L Hct (40.0-50.0) % 35.1 L MCV (80-95) fL 89.5 MCH (27.0-33.0) pg 27.6 MCHC (32.0-36.0) g/dL 30.8 L RDW (11.8-14.1) % 16.0 H Plt Count (130-400) x1000/uL 139 MPV (8.0-11.0) fL 10.9 Immature Gran % 0.5 Neutrophils % 72.6 Lymphocytes % 15.5 Monocytes % 10.5 Eosinophils % 0.3 Basophils % 0.6 Absolute Neutrophils (1.2-6.7) k/cumm 4.58 Absolute Lymphocytes (1.2-3.4) k/cumm 0.98 L Absolute Monocytes (0.11-0.7) k/cumm 0.66 Absolute Eosinophils (0.0-0.7) k/cumm 0.02 Absolute Basophils (0.0-0.2) k/cumm 0.04 PT (9.3-10.8) sec 14.5 H INR (1.0-3.5) 1.5 Sodium (136-145) mmol/L 139 Potassium (3.5-5.1) mmol/L 3.9 Chloride (98-107) mmol/L 103 Carbon Dioxide (21.0-32.0) mmol/L 26.1 Anion Gap (3-11) mmol/L 9.9 BUN (7-18) mg/dL 22 H Creatinine (0.70-1.30) mg/dL 0.92 Estimated GFR/1.73 m2 (mL/min/1.73m2) >= 60.00 Glucose (70-100) mg/dL 110 H Calcium (8.5-10.1) mg/dL 7.6 L Total Bilirubin (0.2-1.0) mg/dL 1.7 H AST (15-37) U/L 89 H ALT (12-78) U/L 52 Alkaline Phosphatase (46-116) U/L 100 Total Protein (6.4-8.2) g/dL 7.6 Albumin (3.4-5.0) g/dL 2.4 L Lipase (73-393) U/L 159 Patient ABO/Rh Antibody Screen Range/Units 07/15/18 12:45 WBC (4.4-10.8) k/cumm RBC (4.50-6.00) m/cumm Hgb (13.5-17.5) g/dL Hct (40.0-50.0) % MCV (80-95) fL MCH (27.0-33.0) pg MCHC (32.0-36.0) g/dL RDW (11.8-14.1) % Plt Count (130-400) x1000/uL MPV (8.0-11.0) fL Immature Gran % Neutrophils % Lymphocytes % Monocytes % Eosinophils % Basophils % Absolute Neutrophils (1.2-6.7) k/cumm Absolute Lymphocytes (1.2-3.4) k/cumm Absolute Monocytes (0.11-0.7) k/cumm Absolute Eosinophils (0.0-0.7) k/cumm Absolute Basophils (0.0-0.2) k/cumm PT (9.3-10.8) sec INR (1.0-3.5) Sodium (136-145) mmol/L Potassium (3.5-5.1) mmol/L Chloride (98-107) mmol/L Carbon Dioxide (21.0-32.0) mmol/L Anion Gap (3-11) mmol/L BUN (7-18) mg/dL Creatinine (0.70-1.30) mg/dL Estimated GFR/1.73 m2 (mL/min/1.73m2) Glucose (70-100) mg/dL Calcium (8.5-10.1) mg/dL Total Bilirubin (0.2-1.0) mg/dL AST (15-37) U/L ALT (12-78) U/L Alkaline Phosphatase (46-116) U/L Total Protein (6.4-8.2) g/dL Albumin (3.4-5.0) g/dL Lipase (73-393) U/L Patient ABO/Rh A Negative Antibody Screen Negative
== END 2018-07-15 18:33 | disposition left against medical advice (07) ==
PROVIDERS: Emergency Provider Student in an Organized Health Care Education/Training Program
DX: K92.2 Gastrointestinal hemorrhage, unspecified (principal); R93.5 Abnormal findings on diagnostic imaging of other abdominal regions, including retroperitoneum; F10.20 Alcohol dependence, uncomplicated; I10 Essential (primary) hypertension; Z53.29 Procedure and treatment not carried out because of patient's decision for other reasons
CPT/HCPCS: 80053; 83690; 86850; 86900; 86901; 96361; 96365; 96375; 99285; 74177; 85014; 85018; 85025; 85610; J2354; J2405; J3490

== ENCOUNTER 2019-04-19 21:23 | Emergency (ER) | payer MEDICAID, SELFPAY ==
[2019-04-19] VITALS (24 sets, daily range): BP systolic 93–138; BP diastolic 55–79; PULSE 99–125; RESP 12–29; TEMP 36.7; O2SAT 96–100
--- NOTE | 2019-04-19 21:42 | W.ED.GENAD ---
Discharge Plan Disposition Patient Disposition: [facility] Condition: Fair Discharge Details Chief Complaint: GI Bleed Clinical Impression: Acute GI bleeding, Alcohol abuse, History of esophageal varices Primary Care Provider: None,None ED Provider: Linda Bro Discharge Data Discharge Date/Time-TO BE ENTERED AT DEPARTURE: 04/20/19 01:20 Medical Decision Making 2129 -- 64-year-old male with a history of alcohol abuse, hypertension, esophageal varices who presents with hematemesis and melena since this morning. Heart rate 120s. Blood pressure 120s/80s. Patient appears mildly pale. Patient was seen here in June 2018 for similar presentation and refused admission or transfer. Concern for acute GI bleed associated with varices, alcoholic gastritis, ruptured PUD. Will place an IV, bolus IV fluids, labs, coagulation studies, type and screen, CT chest abdomen and pelvis and give Protonix, octreotide and Zofran. EKG noted a rate of 112, sinus tach, questionable [address] depression in 2, V3, V4. No acute ST elevation. 2229 -- Labs and imaging reviewed. Hemoglobin 7.3, dropped from 9.4 in June 2018. Platelets 143. INR 1.5. AST minimally elevated, ALT and alk phos unremarkable, troponin negative, lipase within normal limits. BP 93/64. Heart rate 110s. Patient has received almost 2 L IV fluid. Will order 1 unit PRBCs. Pt will likely need transfer to tertiary facility due to h/o varices. Pt states he would rather stay here. 0745 -- Nurse states that patient had large bowel movement approximately 200 cc of maroon-colored blood. Confirmed with general surgery Dr. Whelan and patient not appropriate for admission here due to history of varices and would recommend transfer to tertiary facility. [facility] called for urgent transfer. 2470 -- d/w [facility] transfer center - accepts pt for transfer - would like octreotide gtt. accepting physician Dr. Umaña. Recommend to start Levophed if needed. CT chest abdomen pelvis notes distal thickened gastric wall, cirrhosis but negative for acute findings. Heart rate improved to low 100s. Blood pressure 103/64. Patient appears comfortable. Patient had another large bowel movement approximately 300 cc of maroon-colored blood. Patient has had no hematemesis here. Medical Records Medical records reviewed: Yes I reviewed the patient's medical records. Imaging Data Radiologic Study: Radiologist's impression: CT Chest With Contrast EXAM DATE/TIME: 04/19/2019 10:01 PM CLINICAL HISTORY: 64 years old, male; Vomiting; Patient HX: Hematemesis/melena/hx of varices/; Additional info: R/O acute process TECHNIQUE: Imaging protocol: Axial computed tomography images of the chest with intravenous contrast. Coronal and sagittal reformatted images were created and reviewed. COMPARISON: CT Private^ROUTINE ABDOMEN PELVIS WITH CONTRAST (Adult) 15/07/2018 16:08 FINDINGS: Lungs: Stable 0.5 cm left lower lobe pulmonary nodule. Pleural space: Unremarkable. No pneumothorax. No pleural effusion. Heart: Coronary artery calcification. Aorta: Unremarkable. No aortic aneurysm. Lymph nodes: Unremarkable. No enlarged lymph nodes. Bones/joints: Multilevel degenerative changes of the thoracic spine. Soft tissues: Unremarkable. IMPRESSION: No acute cardiopulmonary disease. EXAM: CT Abdomen and Pelvis With Contrast EXAM DATE/TIME: 04/19/2019 10:01 PM CLINICAL HISTORY: 64 years old, male; Vomiting; Patient HX: Hematemesis/melena/hx of varices/; Additional info: R/O acute process TECHNIQUE: Imaging protocol: Axial computed tomography images of the abdomen and pelvis with intravenous contrast. Coronal and sagittal reformatted images were created and reviewed. COMPARISON: CT Private^ROUTINE ABDOMEN PELVIS WITH CONTRAST (Adult) 15/07/2018 16:08 FINDINGS: Liver: Cirrhosis. Hepatic cysts. Gallbladder and bile ducts: Cholelithiasis. Pancreas: Normal. No ductal dilation. Spleen: Normal. No splenomegaly. Adrenals: Normal. No mass. Kidneys and ureters: Stable right renal cyst. Stable left renal cyst. Stomach and bowel: Fluid-filled and dilated loops of small bowel left upper abdomen. Diverticulosis. Fluid filled stomach with thickening of the distal stomach wall. Prominent fluid-filled duodenum. Appendix: The appendix is not definitely seen. Intraperitoneal space: Normal. No free air. No significant fluid collection. Vasculature: Atherosclerotic disease. Lymph nodes: Normal. No enlarged lymph nodes. Bladder: Mild thickening and irregularity of the anterior bladder wall. Stable punctate calcification in the anterior bladder wall. Reproductive: Symmetric seminal vesicles. Bones/joints: Multilevel degenerative changes of the thoracic and lumbar spine prostate calcifications. Soft tissues: Umbilical hernia. IMPRESSION: 1. Cirrhosis. 2. Cholelithiasis. 3. Diverticulosis. 4. Stable renal cysts. 5. Fluid-filled and distended loops of small bowel consistent with ileus. Distal thickened gastric wall. Lab Data Lab results reviewed: Yes I reviewed the patient's lab results. Laboratory Tests Range/Units 04/19/19 04/19/19 04/19/19 21:45 21:45 21:45 WBC (4.4-10.8) k/cumm 6.75 RBC (4.50-6.00) m/cumm 3.58 L Hgb (13.5-17.5) g/dL 7.3 L Hct (40.0-50.0) % 26.1 L MCV (80-95) fL 72.9 L MCH (27.0-33.0) pg 20.4 L MCHC (32.0-36.0) g/dL 28.0 L RDW (11.8-14.1) % 20.8 H Plt Count (130-400) x1000/uL 143 MPV (8.0-11.0) fL 10.2 Immature Gran % 0.3 Neutrophils % 70.1 Lymphocytes % 17.9 Monocytes % 10.7 Eosinophils % 0.3 Basophils % 0.7 Absolute Neutrophils (1.2-6.7) k/cumm 4.73 Absolute Lymphocytes (1.2-3.4) k/cumm 1.21 Absolute Monocytes (0.11-0.7) k/cumm 0.72 H Absolute Eosinophils (0.0-0.7) k/cumm 0.02 Absolute Basophils (0.0-0.2) k/cumm 0.05 RBC Morphology See below Hypochromasia 1+ Anisocytosis 2+ Microcytosis 2+ PT (9.3-11.0) sec 15.5 H INR (0.9-1.1) 1.5 H APTT (21.0-31.4) sec 20.8 L Sodium (136-145) mmol/L 140 Potassium (3.5-5.1) mmol/L 4.0 Chloride (98-107) mmol/L 105 Carbon Dioxide (21.0-32.0) mmol/L 21.5 Anion Gap (3-11) mmol/L 13.5 H BUN (7-18) mg/dL 26 H Creatinine (0.70-1.30) mg/dL 1.11 Estimated GFR/1.73 m2 (mL/min/1.73m2) >= 60.00 Glucose (70-100) mg/dL 130 H Calcium (8.5-10.1) mg/dL 8.0 L Magnesium (1.8-2.4) mg/dL 1.8 Total Bilirubin (0.2-1.0) mg/dL 1.1 H AST (15-37) U/L 58 H ALT (12-78) U/L 39 Alkaline Phosphatase (46-116) U/L 101 Troponin I (0.00-0.06) ng/mL < 0.05 Total Protein (6.4-8.2) g/dL 6.9 Albumin (3.4-5.0) g/dL 2.3 L Lipase (73-393) U/L 121 Patient ABO/Rh Antibody Screen Crossmatch Range/Units 04/19/19 21:45 WBC (4.4-10.8) k/cumm RBC (4.50-6.00) m/cumm Hgb (13.5-17.5) g/dL Hct (40.0-50.0) % MCV (80-95) fL MCH (27.0-33.0) pg MCHC (32.0-36.0) g/dL RDW (11.8-14.1) % Plt Count (130-400) x1000/uL MPV (8.0-11.0) fL Immature Gran % Neutrophils % Lymphocytes % Monocytes % Eosinophils % Basophils % Absolute Neutrophils (1.2-6.7) k/cumm Absolute Lymphocytes (1.2-3.4) k/cumm Absolute Monocytes (0.11-0.7) k/cumm Absolute Eosinophils (0.0-0.7) k/cumm Absolute Basophils (0.0-0.2) k/cumm RBC Morphology Hypochromasia Anisocytosis Microcytosis PT (9.3-11.0) sec INR (0.9-1.1) APTT (21.0-31.4) sec Sodium (136-145) mmol/L Potassium (3.5-5.1) mmol/L Chloride (98-107) mmol/L Carbon Dioxide (21.0-32.0) mmol/L Anion Gap (3-11) mmol/L BUN (7-18) mg/dL Creatinine (0.70-1.30) mg/dL Estimated GFR/1.73 m2 (mL/min/1.73m2) Glucose (70-100) mg/dL Calcium (8.5-10.1) mg/dL Magnesium (1.8-2.4) mg/dL Total Bilirubin (0.2-1.0) mg/dL AST (15-37) U/L ALT (12-78) U/L Alkaline Phosphatase (46-116) U/L Troponin I (0.00-0.06) ng/mL Total Protein (6.4-8.2) g/dL Albumin (3.4-5.0) g/dL Lipase (73-393) U/L Patient ABO/Rh A Negative Antibody Screen Negative Crossmatch See Detail ECG Data Attestation: I personally reviewed and interpreted this ECG (s) as follows: Interpretation: Rate of 112, sinus, questionable [address] depression in 2, V3, V4. No acute ST elevation. QTc 461. QRS 92. HPI General Mode of arrival: wheelchair. Date/Time Provider Initiated Documentation: 04/19/19 21:37. Limitations to Documentation: no limitations. Information obtained by: patient. HPI Narrative: Patient is a 64-year-old male with a history of daily alcohol abuse, esophageal varices, hypertension and previous history of GI bleed who presents with hematemesis and melena since this morning. Patient states he vomited bright red blood a few times today, last occurring 1 hour ago. States his stools have been black, and this evening now are more diarrhea mixed with black and bright red blood. He admits to some mild abdominal discomfort but denies any at present. He states he last drank last night which was 1 cup of whiskey. States he usually drinks 1 cup of whiskey daily. He denies any chest pain, shortness of breath, urinary symptoms, fever, recent illness. Related Data Allergies Allergy/AdvReac Type Severity Reaction Status Date / Time No Known Allergies Allergy Unverified 07/15/18 13:02 General RYNE: 2 Review of Systems Review of Systems All systems reviewed & are unremarkable except as noted in HPI and below Constitutional Reports as per HPI, Denies chills and Denies fever(s) Eyes Denies blurry vision ENT Denies dizziness, Denies sore throat and Denies throat swelling Cardiovascular Denies chest pain and Denies dyspnea Respiratory Denies cough and Denies dyspnea Gastrointestinal Denies abdominal pain, Reports melena, Denies diarrhea, Denies vomiting and Reports hematemesis Genitourinary Denies hematuria and Denies dysuria Musculoskeletal Denies back pain and Denies numbness Integumentary/Breasts Denies lesions and Denies rash Neurologic Denies dizziness, Denies focal weakness and Denies numbness Allergic/Immunologic Denies throat swelling [facility] Social History (Updated 07/17/18 @ 09:38 by Leanna Santillan MD) Smoking/Tobacco Use Status: Former Tobacco Use Alcohol Intake: current Alcohol Intake frequency: 3 or more drinks per day Alcohol type: hard liquor Drug use: Never Do you feel safe in your relationship?: Yes Exam Const General: cooperative, healthy appearing and no acute distress HENMT Head: normal to inspection Ears: hearing grossly normal bilaterally and external ears normal General nose exam: external nose normal Face and sinus: normal facial exam Mouth: oral mucosae normal Throat: posterior oropharynx normal Eyes General: appearance normal, both eyes and all related structures Pupils: PERRL EOM: EOM intact bilaterally Neck Neck: normal visual inspection and No submandibular swelling Lymphatic: no lymphadenopathy noted Chest Chest: normal inspection of the chest and no tenderness Resp Effort & Inspection: normal respiratory effort and able to speak in complete sentences Auscultation: clear to auscultation bilaterally Cardio Rate: regular rate Rhythm: regular rhythm GI Inspection: normal to inspection Palpation: soft, not firm, not rigid and nontender Auscultation: normal bowel sounds Rectal Exam: visual inspection normal, normal sphincter tone and heme positive stool gross blood (maroon colored) Skin General skin exam: no rashes or lesions noted Neuro General: alert, awake and oriented x3 Cognition: normal cognition Speech: speech normal Motor: muscle tone normal throughout Sensory Exam: no sensory deficits noted Extrem General: normal to inspection, full ROM, normal capillary refill, no calf tenderness bilaterally and edema (less than 1+ pitting b/l LE) Psych Appearance: grossly normal Mental Status: mental status grossly normal Speech and Movement: speech and movement normal Affect: normal affect
--- NOTE | 2019-04-19 21:57 | DI.CT_ITS ---
SYMPTOM/DIAGNOSIS: HEMATEMESIS/MELENA/ H/O VARICES/ R/O ACUTE PROCESS CT CHEST, ABDOMEN AND PELVIS: Comparison CT CHEST, ABDOMEN AND PELVIS:: There is a stable 0.5 cm pulmonary nodule in the left lower lobe The lung bases are otherwise clear. There is diffuse decreased attenuation of the liver consistent with hepatic steatosis. The liver has a lobulated contour suggestive of hepatic cirrhosis. The portal, superior mesenteric and splenic veins are patent. There are stones seen within the gallbladder. The gallbladder wall appears to be hyperdense. There may be mild inflammatory changes around the gallbladder. There is no biliary ductal dilatation. The pancreas is unremarkable as are the spleen and adrenal glands. The kidneys show normal and symmetric enhancement. There are bilateral renal cysts. No evidence of obstruction is identified. The urinary bladder is intact. The reproductive organs are unremarkable. The abdominal aorta is of normal caliber. No significant abdominal or pelvic adenopathy or ascites is present. There is mild bowel wall thickening seen in the stomach, duodenum and proximal small bowel. There is diverticulosis of the colon but no evidence of acute diverticulitis. No findings to suggest an acute appendicitis are present. No acute osseous abnormality is seen. IMPRESSION: 1. Cholelithiasis with findings suspicious for cholecystitis. Sonographic correlation should be considered 2. Hepatic cirrhosis 3. Colonic diverticulosis but no evidence of acute diverticulitis 4. Fluid filled distended loops of small bowel which may represent an ileus. CT CHEST: The thoracic aorta is of normal caliber. The heart is within normal limits. No significant pericardial effusion is seen. No significant thoracic adenopathy, pleural effusion or pneumothorax is identified. There is a stable 5 mm nodule in the left lower lobe. The lungs are clear. Tracheobronchial tree is unremarkable. No acute osseous abnormalities identified. IMPRESSION: No acute pulmonary process
[2019-04-19] MEDS: Normal Saline 1,000 ML 1000 ML IV ×2 (22:00→22:55)
[2019-04-19 22:12] LABS: Abs Immature Grans 0.02 k/cumm (0.0-0.09); Absolute Basophil Count 0.05 k/cumm (0.0-0.2); Absolute Eosinophil Count 0.02 k/cumm (0.0-0.7); Absolute Lymphocyte Count 1.21 k/cumm (1.2-3.4); Absolute Monocyte Count 0.72 k/cumm (0.11-0.7); Absolute Neutrophil Count 4.73 k/cumm (1.2-6.7); Basophils % 0.7; Eosinophils % 0.3; HCT 26.1 % (40.0-50.0); HGB 7.3 g/dL (13.5-17.5); Immature Grans % 0.3; Lymphocytes % 17.9; Mean Corpuscular Hemoglobin 20.4 pg (27.0-33.0); Mean Corpuscular Volume 72.9 fL (80-95); Mean Platelet Volume 10.2 fL (8.0-11.0); Monocytes % 10.7; Neutrophils % 70.1; Platelet Count 143 x1000/uL (130-400); RBC 3.58 m/cumm (4.50-6.00); RBC Distribution Width 20.8 % (11.8-14.1); White Blood Cell Count 6.75 k/cumm (4.4-10.8)
[2019-04-19] MEDS: Pantoprazole 40 MG VIAL IVP (22:19)
[2019-04-19] MEDS: Ondansetron 4 MG/2 ML VIAL IVP (22:20)
[2019-04-19 22:25] LABS: INR 1.5 (0.9-1.1); PTT Activated 20.8 sec (21.0-31.4); Prothrombin Time 15.5 sec (9.3-11.0)
[2019-04-19 22:30] LABS: ALT 39 U/L (12-78); AST 58 U/L (15-37); Albumin 2.3 g/dL (3.4-5.0); Alkaline Phosphatase 101 U/L (46-116); Anion Gap 13.5 mmol/L (3-11); BUN 26 mg/dL (7-18); Bilirubin, Total 1.1 mg/dL (0.2-1.0); CO2 21.5 mmol/L (21.0-32.0); CREATININE 1.11 mg/dL (0.70-1.30); Chloride 105 mmol/L (98-107); Glucose 130 mg/dL (70-100); Lipase 121 U/L (73-393); Magnesium 1.8 mg/dL (1.8-2.4); Sodium 140 mmol/L (136-145); Total Protein 6.9 g/dL (6.4-8.2); Troponin I < 0.05 ng/mL (0.00-0.06)
[2019-04-19 22:40] LABS: Anisocytosis 2+; Hypochromasia 1+; Microcytosis 2+
[2019-04-19] MEDS: Omnipaque 350 MG/ML 100 ML BTL IJ (23:17)
--- NOTE | 2019-04-19 23:59 | DI.VRAD_ITS ---
EXAM: CT Chest With Contrast EXAM DATE/TIME: 04/19/2019 10:01 PM CLINICAL HISTORY: 64 years old, male; Vomiting; Patient HX: Hematemesis/melena/hx of varices/; Additional info: R/O acute process TECHNIQUE: Imaging protocol: Axial computed tomography images of the chest with intravenous contrast. Coronal and sagittal reformatted images were created and reviewed. COMPARISON: CT Private^ROUTINE ABDOMEN PELVIS WITH CONTRAST (Adult) 15/07/2018 16:08 FINDINGS: Lungs: Stable 0.5 cm left lower lobe pulmonary nodule. Pleural space: Unremarkable. No pneumothorax. No pleural effusion. Heart: Coronary artery calcification. Aorta: Unremarkable. No aortic aneurysm. Lymph nodes: Unremarkable. No enlarged lymph nodes. Bones/joints: Multilevel degenerative changes of the thoracic spine. Soft tissues: Unremarkable. IMPRESSION: No acute cardiopulmonary disease. EXAM: CT Abdomen and Pelvis With Contrast EXAM DATE/TIME: 04/19/2019 10:01 PM CLINICAL HISTORY: 64 years old, male; Vomiting; Patient HX: Hematemesis/melena/hx of varices/; Additional info: R/O acute process TECHNIQUE: Imaging protocol: Axial computed tomography images of the abdomen and pelvis with intravenous contrast. Coronal and sagittal reformatted images were created and reviewed. COMPARISON: CT Private^ROUTINE ABDOMEN PELVIS WITH CONTRAST (Adult) 15/07/2018 16:08 FINDINGS: Liver: Cirrhosis. Hepatic cysts. Gallbladder and bile ducts: Cholelithiasis. Pancreas: Normal. No ductal dilation. Spleen: Normal. No splenomegaly. Adrenals: Normal. No mass. Kidneys and ureters: Stable right renal cyst. Stable left renal cyst. Stomach and bowel: Fluid-filled and dilated loops of small bowel left upper abdomen. Diverticulosis. Fluid filled stomach with thickening of the distal stomach wall. Prominent fluid-filled duodenum. Appendix: The appendix is not definitely seen. Intraperitoneal space: Normal. No free air. No significant fluid collection. Vasculature: Atherosclerotic disease. Lymph nodes: Normal. No enlarged lymph nodes. Bladder: Mild thickening and irregularity of the anterior bladder wall. Stable punctate calcification in the anterior bladder wall. Reproductive: Symmetric seminal vesicles. Bones/joints: Multilevel degenerative changes of the thoracic and lumbar spine prostate calcifications. Soft tissues: Umbilical hernia. IMPRESSION: 1. Cirrhosis. 2. Cholelithiasis. 3. Diverticulosis. 4. Stable renal cysts. 5. Fluid-filled and distended loops of small bowel consistent with ileus. Distal thickened gastric wall. Dictated and Authenticated by: Juliana Rubin MD. Ordering:ERIS Mckeon MD
[2019-04-20] VITALS (9 sets, daily range): BP systolic 102–130; BP diastolic 64–77; PULSE 90–110; RESP 14–23; TEMP 36.8–37.2; O2SAT 97–99
[2019-04-20] MEDS: Ondansetron 4 MG/2 ML VIAL IVP (00:51)
[2019-04-20] MEDS: Normal Saline 1,000 ML 125 ML IV (00:56)
== END 2019-04-20 01:20 | disposition short-term general hospital (02) ==
PROVIDERS: Emergency Provider Physician Assistant
DX: K92.2 Gastrointestinal hemorrhage, unspecified (principal); R00.0 Tachycardia, unspecified; F10.10 Alcohol abuse, uncomplicated; I10 Essential (primary) hypertension; Z87.19 Personal history of other diseases of the digestive system
CPT/HCPCS: 36415; 36430; 74177; 80053; 83690; 86850; 86900; 86901; 86920; 93005; 96360; 96361; 96365; 96375; 99285; 71260; 83735; 84484; 85025; 85610; 85730; 93010; J2354; J2405; J3490; P9016

== ENCOUNTER 2019-12-23 04:28 | Outpatient (CLI) | payer MEDICAID, SELFPAY ==
[2019-12-23 14:21] LABS: Absolute Basophil Count 0.04 k/cumm (0.0-0.2); Absolute Eosinophil Count 0.16 k/cumm (0.0-0.7); Absolute Lymphocyte Count 0.99 k/cumm (1.2-3.4); Absolute Monocyte Count 0.49 k/cumm (0.11-0.7); Absolute Neutrophil Count 1.74 k/cumm (1.2-6.7); Basophils % 1.2; Eosinophils % 4.7; HCT 35.3 % (40.0-50.0); HGB 10.5 g/dL (13.5-17.5); Lymphocytes % 28.9; Mean Corp. HGB Concentration 29.7 g/dL (32.0-36.0); Mean Corpuscular Hemoglobin 21.3 pg (27.0-33.0); Mean Corpuscular Volume 71.5 fL (80-95); Mean Platelet Volume 9.9 fL (8.0-11.0); Monocytes % 14.3; Neutrophils % 50.9; Platelet Count 122 x1000/uL (130-400); RBC 4.94 m/cumm (4.50-6.00); RBC Distribution Width 21.4 % (11.8-14.1); White Blood Cell Count 3.42 k/cumm (4.4-10.8)
[2019-12-23 14:33] LABS: INR 1.3 (0.9-1.1)
[2019-12-23 14:45] LABS: Anisocytosis 1+; Diff Comment RBC Morph Reviewed; Hypochromasia 2+; Microcytosis 2+; Poikilocytes 1+
[2019-12-23 15:17] LABS: ALT 36 U/L (16-63); AST 54 U/L (15-37); Albumin 3.1 g/dL (3.4-5.0); Alkaline Phosphatase 101 U/L (46-116); Anion Gap 9.6 mmol/L (3-11); BUN 9 mg/dL (7-18); CO2 25.4 mmol/L (21.0-32.0); CREATININE 0.83 mg/dL (0.70-1.30); Calcium 8.1 mg/dL (8.5-10.1); Chloride 101 mmol/L (98-107); Glucose 114 mg/dL (74-106); Potassium 3.3 mmol/L (3.5-5.1); Sodium 136 mmol/L (136-145); Total Protein 7.9 g/dL (6.4-8.2)
[2019-12-24 11:03] LABS: AFP Tumor Marker 5.8 ng/mL (<8.1)
[2019-12-24 11:16] LABS: Hepatitis C Ab w Rflx HCV PCR Reactive (Negative)
[2019-12-26 10:28] LABS: HCV RNA Detection Quantitative Undetected IU/mL (Undetected)
== END 2019-12-23 04:48 ==
PROVIDERS: Visit Provider Physician Assistant Medical
DX: B18.2 Chronic viral hepatitis C (principal); C22.0 Liver cell carcinoma
CPT/HCPCS: 36415; 80053; 86803; 82105; 85025; 85610; 87522

== ENCOUNTER 2020-07-25 13:17 | Emergency (ER) | payer MEDICARE, MEDICAID, SELFPAY ==
--- NOTE | 2020-07-25 13:18 | W.ED.GENAD ---
Discharge Plan Disposition Patient Disposition: HOME Condition: Good Discharge Details Clinical Impression: Facial laceration Primary Care Provider: Camron Suarez JP ED Provider: Vandana Abarca Home Meds and New Rx's Prescriptions: New cephalexin [Keflex] 500 mg capsule 500 mg PO BID Qty: 10 RF: 0 Continued triamterene-hydrochlorothiazid 75-50 mg tablet 1 tab PO DAILY RF: 0 thiamine mononitrate (vit B1) [Vitamin B-1 (mononitrate)] 100 mg tablet 1 mg PO DAILY RF: 0 acetaminophen [Tylenol] 325 mg Tablet 650 mg PO .Q6HRS PRNRF: 0 Discharge Instructions Instructions: Facial Laceration (ED) Additional Instructions: Keep wound clean, dry, covered. Tylenol and/or ibuprofen as needed for discomfort. Sutures will need to be removed in 5 to 7 days. Please return emergency department for suture removal. Please monitor for signs infection bleeding redness, warmth, drainage, increased pain, fever/chills. If you develop these or other new/worsening symptoms please seek care urgently once again. Please take the Keflex as prescribed I am concerned your are risk for infection. Should you suffer another laceration in the future, please seek care more urgently. Medical Decision Making Patient is a pleasant 65-year-old gentleman presenting to the laceration of the left side of his forehead. He reports that last night, while petting a dog he used states down and lost his balance falling forward and striking that area. Unclear if he hit his head on a chair or the table. No loss consciousness. No headache. States that he was advised to come to have this evaluated last night but decided not to. Spent approximately 18 hours since the injury. He reports his tetanus is up-to-date. On exam, patient 4 cm L-shaped laceration to the lateral aspect of the left eye brow. No active bleeding. Wound edges do separate quite significantly. Heart has been a while since his fall, I do believe loose closure would be appropriate given the location of the wound. Pain I did discuss the risk associated with this, particular signs of infection. We discussed risk/benefits as well as expected procedural steps. He voiced understanding and wishes to proceed. Please see procedure note. Patient tolerated this well. Wound was copiously irrigated explored to base in a bloodless field. No foreign body or debris was noted. Wound edges reapproximated easily. He and I discussed care of the wound. Given the length of time these wounds were kept open as well as history of hepatitis C, I am concerned potential higher risk of infection and feel that treatment with antibiotics would be appropriate. He and I did discuss risk and benefit of this and he would prefer oral antibiotics. He will return in 5 to 7 days for suture removal. Return precautions were discussed. All questions and concerns were addressed and he is in agreement this plan. HPI General Mode of arrival: ambulatory. Date/Time Provider Initiated Documentation: 07/25/20 13:18. Limitations to Documentation: no limitations. Information obtained by: patient and RN notes reviewed. History of Present Illness 65 year old M presents to the emergency department with the chief complaint of laceration above left eye, described as mild, Quality is described as other (no pain at this time), and is localized to the face. Patient reports no radiation. Patient started experiencing this hour(s) (18) and it has been constant. No relieving factors improve symptom(s), No exacerbating factors reported . Patient notes no other symptoms.. Patient did receive the following treatments prior to arrival, none Related Data Home Medications Medication Instructions Recorded Confirmed acetaminophen [Tylenol] 650 mg PO .Q6HRS PRN 07/25/20 07/25/20 cephalexin [Keflex] 500 mg PO BID #10 cap 07/25/20 thiamine mononitrate (vit B1) 1 mg PO DAILY 07/25/20 07/25/20 [Vitamin B-1 (mononitrate)] triamterene-hydrochlorothiazid 1 tab PO DAILY 07/25/20 07/25/20 Previous Rx's Medication Instructions Recorded cephalexin [Keflex] 500 mg PO BID #10 cap 07/25/20 Allergies Allergy/AdvReac Type Severity Reaction Status Date / Time No Known Allergies Allergy Unverified 07/25/20 13:29 General RYNE: 2 Review of Systems Constitutional Constitutional: Reports as per HPI, Denies chills, Denies fever(s) and Denies headache(s) Eyes Eyes: Denies blurry vision, Denies eye discharge, Denies irritation, Denies loss of vision and Denies eye pain ENT Ears, Nose, Mouth, and Throat: Denies headache(s) Musculoskeletal Musculoskeletal: Reports as per HPI Integumentary/Breasts Skin/Breast: Reports as per HPI Neurologic Neurologic: Reports as per HPI, Denies headache(s), Denies loss of vision, Denies sensory deficit and Denies paresthesias [facility] Social History Smoking/Tobacco Use Status: Former Tobacco Use Smoking risk assessment performed?: Yes Alcohol Intake: current Alcohol Intake frequency: 3 or more drinks per day Alcohol type: hard liquor Drug use: Never Details: 1/2 pint a day Do you feel safe in your relationship?: Yes Exam Const General: cooperative, healthy appearing, comfortable, no acute distress and well developed Nutritional Appearance: average body habitus and well nourished Orientation: alert and awake [facility] Head: no palpable skull fracture, normocephalic, no Chandler's sign, no hematomas and laceration Head images: 1. 4cm L shaped incision into subQ tissue. No active bleeding. No visible debris. Wound edges separate easily and reveal significant gap in wound edges. Surrounding ecchymosis. Ears: hearing grossly normal bilaterally and external ears normal Face and sinus: normal facial exam Resp Effort & Inspection: normal respiratory effort, able to speak in complete sentences and no respiratory distress Cardio Rate: regular rate Rhythm: regular rhythm Skin Trauma: laceration (as above) Neuro General: patient alert and patient awake Cognition: normal cognition Speech: speech normal Gait: normal gait Sensory Exam: no sensory deficits noted Psych Appearance: grossly normal and well kempt Mental Status: mental status grossly normal Speech and Movement: speech and movement normal Procedures Laceration Laceration 1: Site: face Side (If applicable): left Size (cm): 4 Description: irregular (L shaped) and clean Depth: simple, single layer Local Anesthetic: Lidocaine 1% and with Epi Amount of anesthesia used (mL): 4 Pre-repair: wound explored, irrigated extensively, deep structures intact and extensive debridement Skin layer closed with: nylon Size (cm): 6-0 Number of sutures: 3 Technique: simple, interrupted
[2020-07-25 13:21] VITALS: BP 162/102; PULSE 90; RESP 16; TEMP 36.8; O2SAT 98
== END 2020-07-25 14:28 | disposition home or self-care (01) ==
PROVIDERS: Emergency Provider Physician Assistant; PCP Family Medicine
DX: S01.81XA Laceration without foreign body of other part of head, initial encounter (principal); W01.10XA Fall on same level from slipping, tripping and stumbling with subsequent striking against unspecified object, initial encounter
CPT/HCPCS: 12013

== ENCOUNTER 2022-04-15 05:01 | Emergency (ER) | payer MEDICARE, MEDICAID, SELFPAY ==
[2022-04-15 05:05] VITALS: BP 174/111; PULSE 110; RESP 20; TEMP 36.3; O2SAT 97
--- NOTE | 2022-04-15 05:23 | ED.GENADUL_ITS ---
Discharge Plan Disposition Patient Disposition: HOME Condition: Good Discharge Details Chief Complaint: Laceration Clinical Impression: Bleeding from varicose veins of right lower extremity Primary Care Provider: Camron Suarez JP ED Provider: David Hawkins Home Meds and New Rx's Prescriptions: No Action triamterene-hydrochlorothiazid 75-50 mg tablet 1 tab PO DAILY Label Comments: TAKE ONE TABLET BY MOUTH EVERY DAY thiamine mononitrate (vit B1) [Vitamin B-1 (mononitrate)] 100 mg tablet 1 mg PO DAILY Label Comments: TAKE ONE TABLET BY MOUTH EVERY DAY acetaminophen [Tylenol] 325 mg Tablet 650 mg PO .Q6HRS PRN Discharge Instructions Additional Instructions: Thankfully at this time the bleeding is stopped. Please keep the bandaging on for the next 12 to 24 hours. You can then gently remove this afterwards. If the bleeding does recur please apply the small patches of gauze, and wrapped gently with the wrapping that we have given you. Please drink plenty of water as you will likely be dehydrated today from the mild blood loss. If you notice any worsening of your symptoms, or any new symptoms such as vomiting, diarrhea, fever, chills, shortness of breath, chest pain, numbness, weakness, or fainting , please return immediately to the emergency department for reevaluation. Please follow up with your primary care provider as soon as possible for reassessment and reevaluation. As always, it was a pleasure participating in your medical care today. Referrals: Camron Suarez JP [Primary Care Provider] - Medical Decision Making 67-year-old male with a past medical history of regular alcohol consumption, presents today for bleeding of his right lower extremity varices. Started within the past hour, it was secondary to scratching at a Versie site. He denies any blood thinner use. He denies any aspirin use. He denies any numbness or tingling. He denies any trauma. He wrapped the area with a bandanna tourniquet, and came to the ER for further management. Physical exam demonstrates a small varices on the right lower extremity medial aspect that has stopped bleeding by the time that it was uncovered and unbandaged. Entire leg was cleaned to evaluate for any other sites of bleeding and no bleeding is noted. Small of TXA and Surgicel was placed over the varices, it was then wrapped with Coban. Patient tolerated this well. Patient had no desire to discuss any further alcohol cessation. Patient is not on any anticoagulants. Recommend that he continues to do his best to avoid scratching and plucking at his varices. Patient is otherwise hemodynamically stable, no signs of severe volume loss. Recommend hydration at home. Discussed red flags for which to return. I have extensively reviewed the treatment plan and disch arge instructions with the patient and their family. I have addressed all patient concerns at this time. The patient and family was made aware of what symptoms to monitor for that would warrant a return to the emergency department. Discussed the plan with the patient and family, they demonstrate verbal understanding and agreement with our assessment and plan at this time. The documentation in this chart was dictated using [employer] dictation software. Please excuse any dictation errors. HPI General Date/Time Provider Initiated Documentation: 04/15/22 05:03 . HPI Narrative: 67-year-old male with a past medical history of regular alcohol consumption, presents today for bleeding of his right lower extremity varices. Started within the past hour, it was secondary to scratching at a Versie site. He denies any blood thinner use. He denies any aspirin use. He denies any numbnes s or tingling. He denies any trauma. He wrapped the area with a bandanna tourniquet, and came to the ER for further management. Related Data Home Medications Medication Instructions Recorded Confirmed acetaminophen 325 mg tablet 650 mg PO .Q6HRS PRN 07/25/20 04/15/22 (Tylenol) thiamine mononitrate (vit B1) 100 1 mg PO DAILY 07/25/20 07/25/20 mg tablet (Vitamin B-1 (mononitrate)) triamterene 75 1 tab PO DAILY 07/25/20 04/15/22 mg-hydrochlorothiazide 50 mg tablet Allergies Allergy/AdvReac Type Severity Reaction Status Date / Time No Known Allergies Allergy Unverified 04/15/22 05:10 General Stated Complaint: Laceration RYNE: 4 Review of Systems All systems reviewed & are unremarkable except as noted in HPI and below PFSH All Active Problems Bleeding from varicose veins of right lower extremity (Acute) Social History (Reviewed 04/15/22 @ 05:26 by RENUKA Hernandez Smoking/Tobacco Use Status: Former Tobacco Use Smoking risk assessment performed?: Yes Alcohol Intake: current Alcohol Intake frequency: 3 or more drinks per day Alcohol type: hard liquor Drug use: Never Substance use type: does not use Details: 1/2 pint a day Do you feel safe in your relationship?: Yes Exam Narrative Exam Narrative: 1.Const: Well-nourished, Well-developed, appearing stated age 2.Eyes: PERRL, no conjunctival injection, and symmetrical lids. 3.ENT: Atraumatic external nose and ears. Moist MM. Neck: Symmetric, trachea midline, No thyromegaly. 4.CVS: +S1/S2, No murmurs or gallops. Peripheral pulses 2+ and equal in all extremities. Brisk capillary refill in all extremities. 5.RESP: Unlabored respiratory effort. Clear to auscultation bilaterally. No wheezes rales or rhonchi 6.GI: Soft, Nontender/Nondistended, No hepatosplenomegaly. No guarding or rebound. 7.MSK: Normocephalic/Atraumatic, Extremities w/o deformity or ttp No cyanosis or clubbing, Normal movement of all extremities 8.Skin: Right lower extremity demonstrates multiple varices, all of which have stopped bleeding. The area of concern is no longer actively hemorrhaging or bl eeding or oozing. Small varices noted about midshaft region on the medial aspect of the right lower extremity. 9.Neuro: technology development intern II-XII grossly intact. Sensation grossly intact, no focal neurologic deficits. 10.Psych: (AAO) x3. Appropriate mood and affect Course Vital Signs Vital signs: Vital Signs Temperature 36.3 C L 04/15/22 05:05 Pulse 110 H 04/15/22 05:05 Respiratory Rate 20 04/15/22 05:05 Blood Pressure 174/111 H 04/15/22 05:05 Pulse Oximetry 97 04/15/22 05:05 Temperature 36.3 C L 04/15/22 05:05 Pulse 110 H 04/15/22 05:05 Respiratory Rate 20 04/15/22 05:05 Respiratory Effort Non-Labored 04/15/22 05:11 Blood Pressure 174/111 H 04/15/22 05:05 Pulse Oximetry 97 04/15/22 05:05 Pain Level 0 07/23/22 05:05 PAWSS Have you Been Recently Intoxicated or Drunk Within the Last 30 days?: Yes Have you Ever Experienced Previous Episodes of Alcohol Withdrawal?: Yes Have you ever Experienced Withdrawal Seizures?: No Have you ever Experienced Delirium Tremens(DT)s?: Yes Have you ever undergone Alcohol Rehabilitation Treatment (i.e, inpt ot outpatient treatment programs)?: No Have you ever Experienced Blackouts?: No Have you ever Combined Alcohol with other Downers within the last 90 days?: No Have you ever Combined Alcohol with any other Substance of Abuse during the last 90 days?: No Positive Blood Alcohol level on Presentation? [PCS.BAL]: No Evidence of Increased Autonomic Activity (i.e. HR>120, tremor, sweating, agitation, nausea)?: No Result: 3
== END 2022-04-16 05:32 | disposition home or self-care (01) ==
PROVIDERS: Emergency Provider Student in an Organized Health Care Education/Training Program; PCP Family Medicine
DX: I83.891 Varicose veins of right lower extremity with other complications (principal); Z87.891 Personal history of nicotine dependence
CPT/HCPCS: 99283; 99284

== ENCOUNTER → 2022-07-21 01:13 | Outpatient (CLI) | payer MEDICARE, MEDICAID, SELFPAY ==
--- OUTSIDE RECORDS SUMMARY | 2022-07-21 01:15 | XMS_ITS | Continuity of Care Document ---
:1955 Author Organization [facility] Address [address] [place] [address] Care Team Providers Name Role Phone Camron Suarez Primary Care Physician Camron Suarez Attending Physician Allergies, Adverse Reactions, Alerts Allergen Type Severity Reaction Last Updated Verified Status aspirin Allergy bleeding October 01 Active 2019 acetaminophen Adverse Reaction makes sides ache October 01 Active 2018 Medications Active Medications Medication Dose Units Route Sig Qty Start Date Status In structions Ferrous Sulfate 325 MG ORAL DAILY October 01, Activ e 2019 Triamterene-Hydroc 1 TAB ORAL DAILY October 01, Ac tive hlorothiazid 2019 Ca 1 TAB ORAL THREE TIMES October 01, Active Upqw-Bdufxrdej-Sfg A DAY 2018 k Thistle [Liver-Kidney Cleanser] Tvzcpvzq-Wjj-Cklw- 1 TAB ORAL DAILY October 01, Ac tive Folic-Vit K1 2018 [Centrum Chewables] Discontinued Medications Medication Dose Units Route Sig Qty Start Discontinued Status Instructions Date Date Hydrochlorothi 1 CAP ORAL DAILY FebruaryJuly 16, Disc ontinued azide/Triamter 2017 [HYDR 2011 OCHLOROTHIAZID E/TRIAM 25 mg-37.5 mg] Pantoprazole 40 MG ORAL TWICE 30 JanuaryJuly 16, Discon tinued Take 1 tablet [Protonix] A DAY 2017 twice daily 2015 Phenobarbital 16.2 MG ORAL TWICE 2 JanuaryFebruary 01, 2016 Disc ontinued Take 1/2 A DAY 10, tablet by 2015 mouth twic e daily, fir st dose Phenobarbital 32.4 MG ORAL THREE 5 JanuaryMarch 18, 2018 Dis continued Take 1 tablet TIMES 10, by mouth A DAY 2015 every 8 ho urs (6AM, 2PM, 10PM) Phenobarbital 16.2 MG ORAL TWICE 2 JanuaryMarch 18, 2018 Dis continued Take 1/2 A DAY 10, tablet by 2016 mouth twic e daily, fir st dose 5/12/ 16 10AM Problem List Active Problems Medical Problem Onset Date Status Alcohol abuse Active Liver cirrhosis Active Acute GI bleeding Active Hypertension Active Inactive/Resolved Problems Medical Problem Onset Date Status Tear of right biceps muscle Inactive Procedures Procedure Date Status Provider(s) EGD, using biopsy October 01, [address] Chest w/ Contrast April 30, 2018 completed Import Outside CD April 05, 2018 active Hip 2 vw Min RT January 01, 2018 completed Relevant Diagnostic Tests and/or Laboratory Data Laboratory Results Test Date/Time Result Interp. Ref. Range Result Comment White Blood Count October 08, 3.87 Low 4.8-10.8 2018 9:42am 1000/mm3 Red Blood Count October 08, 5.10 M/mm3 4.70-6.00 2018 9:42am Hemoglobin October 08, 11.7 g/dL Low 14.0-18.0 2018 9:42am Hematocrit October 08, 39.6 % Low 42-52 2018 9:42am Mean Corpuscular October 08, 77.6 fL Low 80.0-94.0 Volume 2019 9:42am Mean Corpuscular October 08, 22.9 pg Low 27-31 Hemoglobin 2019 9:42am Mean Corpuscular October 08, 29.5 g/dL Low 33-37 Hemoglobin Concent 2019 9:42am Red Cell Distribution October 08, 24.9 % High 11.5-14.5 Width 2018 9:42am Platelet Count October 08, 101 1000/mm3 Low 379-457 7651 9:42am Mean Platelet Volume October 08, 10.0 fL 7.4-10.4 2018 9:42am Sodium Level October 08, 136 mmol/L Low 960-477 5320 9:42am Potassium Level October 08, 3.5 mmol/L Low 3.6-5.0 2018 9:42am Chloride Level October 08, 103 mmol/L 98-107 2018 9:42am Carbon Dioxide Level October 08, 27 mmol/L -30 2018 9:42am Anion Gap September 15, 6 Low 7-16 2018 9:42am Blood Urea Nitrogen September 15, 7 mg/dL Low 8-2018 9:42am Creatinine October 08, 0.77 mg/dL 0.66-1.25 2018 9:42am Glomerular Filtration October 08, > 60 mL/min 60.0- Rate Calc 2018 9:42am Glucose Level October 08, 108 mg/dL High 70-100 2019 9:42am Calcium Level October 08, 8.9 mg/dL 8.4-10.2 2019 9:42am Calcium Adjusted for October 08, 9.5 mg/dL 8.4-10.2 Albumin 2018 9:42am Transferrin August 20, 301 mg/dL 201-352 Test Perfor med by: 2018 10:00am [facility] [address] [id number] Total Bilirubin October 08, 2.2 mg/dL High 0.2-1.3 2018 9:42am Aspartate Amino Transf October 08, 71 U/L High 17-59 (AST/SGOT) 2019 9:42am Alanine October 08, 37 U/L 21-72 Aminotransferase 2018 9:42am (ALT/SGPT) Total Protein October 08, 8.3 g/dL High 6.3-8.2 2018 9:42am Albumin October 08, 3.6 g/dL 3.5-5.0 2018 9:42am Cholesterol Level October 08, 110 mg/dL 59-199 2018 9:42am HDL Cholesterol October 08, 46 mg/dL 40-60 The [employer] Cholesterol Education Program (NCEP) has set the following guidelines (reference values) for cholesterol, HDL: 2019 9:42am Low HDL: <40 mg/dL Normal: 40-60 mg/dL Desirable: >60 mg/dL LDL Cholesterol October 08, 50.0 mg/dL 0-129 2018 9:42am VLDL Cholesterol October 08, 14.0 mg/dL 0-32 2018 9:42am Cholesterol/HDL Ratio October 08, 2.39 0-3.9 2018 9:42am Triglycerides Level October 08, 70 mg/dL 0-149 2018 9:42am Alkaline Phosphatase October 08, 122 U/L 38-126 2018 9:42am Thyroid Stimulating October 08, 7.81 mlU/L High 0.47-4.68 TSH cascade is Hormone (TSH) 2018 9:42am not recomm ended for patients i n which pituitar y or hypothalmic disorders are suspected. Free Thyroxine October 08, 1.12 ng/dL 0.78-2.19 2018 9:42am Hemoglobin A1c Percent August 20, 5.06 % <5.7%: Normal 2018 10:00am 5.7%-6.4%: P rediabetes >=6.5%: Diagno stic for diabetes Goals for Glyc emic Control in Diabetes (ADA 2018) <7.0%: A1c tar get for non adults with diabetes. More or less stringent glycemic goals may be appropriate for individual patients. <7.5%: A1c tar get for children and adolescents with type I diabetes. A lower goal is reasonable if it can be achieved without excessive hypoglycemia. Estimated Average August 20, 99 mg/dL Glucose mg/dL 2018 10:00am Ferritin August 20, 13.4 ng/mL Low 22-322 The results of 2018 10:00am this assay c an be falsely decrea sed in patients wh o consume Biotin . Advance Directives Advance Directive Response Recorded Date/Time Do we [place] a [place] [facility] No J une 2016 12:14pm Does patient have an Advanced Directive? No January 30, 2012 10:45am Pt has a Living Will? No January 30, 2012 10:45a m Pt has a Power of Voip Technician? No January 30, 2012 10:45am Hospital Discharge Instructions No known hospital discharge instructions. Hospital Discharge Medications Medication Dose Units Route Sig Qty Days Order Status Instru ctions Date Hydrochlorothiaz 1 CAP ORAL DAILY February 28, Discon tinued lisseth/Triamter 2011 Pantoprazole 40 MG ORAL TWICE A January 31, Discontin ued Take 1 tablet DAY 2015 twice felicita y Phenobarbital 16.2 MG ORAL TWICE A January 31, Disconti nued Take 1/2 DAY 2015 tablet by mouth twic e daily, fir st dose Phenobarbital 32.4 MG ORAL THREE January 31, Discontin ued Take 1 tablet TIMES A 2015 by mouth every DAY 8 hours (6 AM, 2PM, 10PM) Phenobarbital 16.2 MG ORAL TWICE A January 31, Disconti nued Take 1/2 DAY 2015 tablet by mouth twic e daily, fir st dose 10AM Ferrous Sulfate 325 MG ORAL DAILY September Active 2018 Triamterene-Hydr 1 TAB ORAL DAILY September Active ochlorothiazid 2018 Ca 1 TAB ORAL THREE September Active Vmpd-Fmazfxokd-E TIMES A 2018 ilk This DAY Tbobvfqj-Fdw-Ntp 1 TAB ORAL DAILY September Active n-Folic-Vit K1 2018 Encounters Encounter Facility Location Admit/Visit Discharge/Departure Atte nding Date Date Provider Departed [facility] October 08, October 08[facility] 2019 9:04am 11:58am [facility] Departed [facility] August 20August 20, 2018 [facility] 7:51[facility] 7[facility]July 16[facility], [facility] 04[facility], 2018 March 18, 2018 2[facility] 2:06pm [facility] January 01January 01, 2018 [facility] 2017 12:11pm 12:12pm [facility] November 28, 2017 November 28, 2017 6:39pm [facility] 6:38pm Camron Functional Status No known functional status. Immunizations No known immunizations. Payers Payer Name Policy Type Covered Covered Relationship Subscriber Sub scriber Id Green Party Green Party Id MEDICAID OF Medicaid EDWARD HAHR [id number] Self/Same as [facility] [id number] [place] Patient SELF PAY Personal [place] MEDICAID Medicaid [facility] [id number] Self/Same as [facility] [id number] (DO NOT USE) Patient Plan of Care No Known Plan of Care Information Social History Query Response Date Recorded Comment Alcohol Heavy February 26, 2016 1:28am Living Situation With Family January 30, 2016 9:21am Query Response Start Date Stop Date Smoking Status Former smoker September 24, 1987 September 24, 2000 Vital Signs Vital Reading Result Reference Range Collection Date/ Time Height 6 ft October 01, 2018 9:38am Weight 97.522 kg October 01, 2018 9:38am Temperature 98.1 F 97.6 F-99.6 F October 01, 2018 11:22am Pulse 64 BPM 60-100 October 01, 2018 11:45am Respiration 18 RPM 12-24 October 01, 2018 11:45am Pulse Oximetry 97 % 95-100 October 01, 2018 11:45am Blood Pressure Systolic 167 100-140 October 01, 2018 11:45am Blood Pressure Diastolic 87 50-85 October 01, 2018 11:45am Body Mass Index 29.1 October 01, 2018 9:38am
--- OUTSIDE RECORDS SUMMARY | 2022-07-21 01:15 | XMS_ITS | Continuity of Care Document ---
:1955 Author Organization [facility] Address [address] [place] [address] Care Team Providers Name Role Phone Camron Suarez Primary Care Physician Camron Suarez Attending Physician Allergies, Adverse Reactions, Alerts Allergen Type Severity Reaction Last Updated Verified Status aspirin Allergy bleeding September 302015 acetaminophen Adverse Reaction makes sides ache September 30 Active 2015 Medications Active Medications Medication Dose Units Route Sig Qty Start Date Status In structions Hydrochlorothiazide 1 cap ORAL DAILY February 28, Acti ve /Triamter [HYDR 2012 OCHLOROTHIAZIDE/TRI AM 25 mg-37.5 mg] Pantoprazole 40 mg ORAL TWICE A DAY January 31, Active Take 1 tablet [Protonix] 2015 twice daily Phenobarbital 32.4 mg ORAL THREE TIMES January 31, Active Take 1 tablet by A DAY 2016 mouth ev jenni 8 hours (6 AM, 2PM, 10PM) Phenobarbital 16.2 mg ORAL TWICE A DAY January 31, Active Take 1/2 tablet 2016 by mouth twice daily, f irst dose 02/03/16 10AM Discontinued Medications Medication Dose Units Route Sig Qty Start Discontinued Status Instructions Date Date Phenobarbital 16.2 mg ORAL TWICE 2 JanuaryFebruary 01, 2016 Disc ontinued Take 1/2 A DAY , tablet by 2016 mouth twic e daily, fir st dose Problem List Active Problems Medical Problem Onset Date Status Acute GI bleeding Active Alcohol abuse Active Hypertension Active Liver cirrhosis Active Procedures Procedure Date Status CT Chest w/ Contrast March 07, 2017 completed Chest 2 vw February 27, 2017 completed Gram Stain June 30, 2016 completed Sputum Culture June 30, 2016 completed Chest 2 vw June 28, 2016 completed CO/MEMBANE DIFFUSE CAPACITY June 28, 2016 active PULM FUNCT TST PLETHYSMOGRAP June 28, 2016 active EVALUATION OF WHEEZING June 28, 2016 active CHEST X-RAY 2VW FRONTAL&LATL June 28, 2016 active Relevant Diagnostic Tests and/or Laboratory Data Laboratory Results Test Date/Time Result Interp. Ref. Range Result Comment White Blood Count March 14, 2017 5.33 4.8-10.8 10:30am 1000/mm3 Red Blood Count March 14, 2017 5.18 M/mm3 4.70-6.00 10:30am Hemoglobin March 14, 2017 14.4 g/dL 14.0-18.0 10:30am Hematocrit March 14, 2017 44.3 % 42-52 10:30am Mean Corpuscular March 14, 2017 85.5 fL 80.0-94.0 Volume 10:30am Mean Corpuscular March 14, 2017 27.8 pg 27-31 Hemoglobin 10:30am Mean Corpuscular March 14, 2017 32.5 g/dL Low 33-37 Hemoglobin Concent 10:30am Red Cell Distribution March 14, 2017 17.6 % High 11.5-14.5 Width 10:30am Platelet Count March 14, 2017 98 1000/mm3 Low 140-440 10:30am Mean Platelet Volume March 14, 2017 12.5 fL High 7.4-10.4 10:30am Sodium Level March 14, 2017 139 mmol/L 137-145 10:30am Potassium Level March 14, 2017 3.9 mmol/L 3.6-5.0 10:30am Chloride Level March 14, 2017 103 mmol/L 98-107 10:30am Carbon Dioxide Level March 14, 2017 27 mmol/L 22-30 10:30am Anion Gap March 14, 2017 9 7-16 10:30am Blood Urea Nitrogen March 14, 2017 8 mg/dL 8-26 10:30am Creatinine June 04, 1.0 mg/dL 0.66-1.25 2016 12:06am Glomerular Filtration June 04, > 60 mL/min Rate Calc 2016 12:06am Glucose Level March 14, 2017 70 mg/dL 70-100 10:30am Calcium Level March 14, 2017 8.5 mg/dL 8.4-10.2 10:30am Calcium Adjusted for March 14, 2017 9.1 mg/dL 8.4-10.2 Albumin 10:30am Total Iron Binding November 07, 513 ug/dL High 261-462 Test Performed by: Capacity 2016 10:34am [place] [address] Product Marketing Intern: James Schreiber MD , Ph D Total Iron Binding March 14, 2017 437 ug/dL 261-462 Capacity 10:30am Total Bilirubin March 14, 2017 1.5 mg/dL High 0.2-1.3 10:30am Aspartate Amino Transf March 14, 2017 147 U/L High 17-59 (AST/SGOT) 10:30am Alanine March 14, 2017 84 U/L High 21-72 Aminotransferase 10:30am (ALT/SGPT) Total Protein March 14, 2017 8.1 g/dL 6.3-8.2 10:30am Albumin March 14, 2017 3.6 g/dL 3.5-5.0 10:30am Alkaline Phosphatase March 14, 2017 114 U/L 38-126 10:30am Thyroid Stimulating March 14, 2017 5.05 mlU/L High 0.47-4.68 TS H cascade is Hormone (TSH) 10:30am not recomme nded for patients i n which pituitar y or hypothalmic disorders are suspected. Free Thyroxine March 14, 2017 1.01 ng/dL 0.78-2.19 10:30am Ferritin March 14, 2017 33.7 ng/mL 22-322 10:30am Microbiology Results Procedure Source Result Collection Date/Time Result Date/Time Sputum Culture Sputum No results entered June 30, 2016 11:2 1am Gram Stain Sputum No results entered June 30, 2016 11:21a m Advance Directives Advance Directive Response Recorded Date/Time Do we have a copy on file here at [facility]? No [facility] 2016 12:14pm Does patient have an Advanced Directive? No January 30, 2012 10:45am Pt has a Living Will? No January 30, 2012 10:45a m Pt has a Power of Stripping Shovel Oiler? No January 30, 2012 10:45am Hospital Discharge Instructions No known hospital discharge instructions. Hospital Discharge Medications Medication Dose Units Route Sig Qty Days Order Status Instru ctions Date Hydrochlorothiaz 1 cap ORAL DAILY February 28, Active lisseth/Triamter 2011 Pantoprazole 40 mg ORAL TWICE A 30 January 31, Active Ta ke 1 tablet DAY 2015 twice felicita y Phenobarbital 16.2 mg ORAL TWICE A 2 January 31, Disconti nued Take 1/2 DAY 2015 tablet by mouth twic e daily, fir st dose Phenobarbital 32.4 mg ORAL THREE January 31, Active Ta ke 1 tablet TIMES A 2016 by mouth every DAY 8 hours (6 AM, 2PM, 10PM) Phenobarbital 16.2 mg ORAL TWICE A January 31, Active T dixie 09/25 DAY 2015 tablet by mouth twic e daily, fir st dose 10AM Encounters Encounter Facility Location Admit/Visit Discharge/Departure Atte nding Date Date Provider Departed [facility]June 04[facility] 8:23pm Camron Departed [facility] March 14, 2017 March 14, 2017 8:43pm [facility] 8:42pm Camron [facility] March 07, 2017 March 07, 2017 1:11pm [facility] 1[facility]10[facility], [facility] February 27, 2017 12:10pm [facility] 12:09pm [facility] Registered [facility] November 07, [facility] 2016 7:07pm Camron Registered [facility] Referred Lab June 30, [facility] 2015 1:26pm Fannie Registered [facility] June 28, [facility] 2016 7:56pm Camron [facility] June 28, [facility] Therapy 2015 12:12pm Fannie Functional Status No known functional status. Immunizations No known immunizations. Payers Payer Name Policy Type Covered Covered Relationship Subscriber Sub scriber Id Republican Republican Id MEDICAID OF Medicaid [facility] [id number] Self/Same as [facility] [id number] [place] Patient SELF PAY Personal [place] MEDICAID Medicaid [facility] [id number] Self/Same as [facility] [id number] (DO NOT USE) Patient Plan of Care No Known Plan of Care Information Social History Query Response Date Recorded Comment Alcohol Heavy February 26, 2016 1:28am Living Situation With Family January 30, 2016 9:21am Vital Signs Vital Reading Result Reference Range Collection Date/ Time Height 6 ft January 29, 2016 11:0 7pm Weight n/a Temperature n/a Pulse n/a Respiration n/a Pulse Oximetry n/a Blood Pressure Systolic n/a Blood Pressure Diastolic n/a Body Mass Index n/a
--- OUTSIDE RECORDS SUMMARY | 2022-07-21 01:15 | XMS_ITS | Continuity of Care Document ---
:1955 Author Organization [facility] Address [address] [place] [address] Care Team Providers Name Role Phone Camron Suarez Primary Care Physician Camron Suarez Attending Physician Allergies, Adverse Reactions, Alerts Allergen Type Severity Reaction Last Updated Verified Status aspirin Adverse Unknown bleeding September 03, Y Active Reaction 2014 ibuprofen Adverse Unknown flank pain June 21, Y Activ e Reaction 2015 acetaminophen Adverse makes sides October 01, 2018 Y Active Reaction ache Medications Active Medications Medication Dose Units Route Sig Qty Start Date Status In structions Ferrous Sulfate 325 MG ORAL DAILY October 01, Activ e 2019 Triamterene-Hydroc 1 TAB ORAL DAILY October 01, Ac tive hlorothiazid 2019 Ca 1 TAB ORAL THREE TIMES October 01, Active Irej-Ncxoljosl-Nik A DAY 2018 k Thistle [Liver-Kidney Cleanser] Swprwbut-Iaz-Jnfc- 1 TAB ORAL DAILY October 01, Ac [...] tablet TIMES 10, by mouth A DAY 2016 every 8 ho urs (6AM, 2PM, 10PM) Phenobarbital 16.2 MG ORAL TWICE 2 JanuaryMarch 18, 2018 Dis continued Take 1/2 A DAY 10, tablet by 2016 mouth twic e daily, fir st dose 10AM Problem List Active Problems Medical Problem Onset Date Status Alcohol abuse Active Cough June 21, 2016 Difficulty breathing June 21, 2016 Liver cirrhosis Active Sprain of shoulder and upper arm March 21, 2018 Chronic obstructive pulmonary disease June 21, 2016 Acute GI bleeding Active Hematemesis September 12, 2018 Anemia due to chronic blood loss September 03, 2015 Gastroesophageal reflux disease September 12, 2018 Hypertension Active Arthralgia of right upper arm March 21, 2018 Inactive/Resolved Problems Medical Problem Onset Date Status Tear of right biceps muscle Inactive Procedures No known history of procedures. Relevant Diagnostic Tests and/or Laboratory Data Laboratory Results Test Date/Time Result Interp. Ref. Range Result Comment White Blood Count October 02, 2019 3.62 1000/mm3 Low 4.8-10.8 10:38am Red Blood Count October 02, 2019 4.94 M/mm3 4.70-6.00 10:38am Hemoglobin October 02, 2019 10.3 g/dL Low 14.0-18.0 10:38am Hematocrit October 02, 2019 36.5 % Low 42-52 10:38am Mean Corpuscular October 02, 2019 73.9 fL Low 80.0-94.0 Volume 10:38am Mean Corpuscular October 02, 2019 20.9 pg Low 27-31 Hemoglobin 10:38am Mean Corpuscular October 02, 2019 28.2 g/dL Low 33-37 Hemoglobin Concent 10:38am Red Cell Distribution October 02, 2019 20.1 % High 11.5-14.5 Width 10:38am Platelet Count October 02, 2019 118 1000/mm3 Low 140-440 10:38am Mean Platelet Volume October 02, 2019 10.3 fL 7.4-10.4 10:38am Neutrophils (%) (Auto) July 02, 2019 52.9 % 40.0-72. 0 10:55am Lymphocytes (%) (Auto) July 02, 2019 22.5 % 17-45 10:55am Monocytes (%) (Auto) July 02, 2019 17.2 % High 3-11 10:55am Eosinophils (%) (Auto) July 02, 2019 5.1 % High 0-3 10:55am Basophils (%) (Auto) July 02, 2019 2.0 % High 0-1 10:55am Immature Granulocyte % July 02, 2019 0.3 % 0-1 (Auto) 10:55am Neutrophils # (Auto) July 02, 2019 1.88 1000/mm3 1.4-6.5 10:55am Lymphocytes # (Auto) July 02, 2019 0.80 1000/mm3 Low 1.2-3.4 10:55am Monocytes # (Auto) July 02, 2019 0.61 1000/mm3 0.0-0.8 10:55am Eosinophils # (Auto) July 02, 2019 0.18 1000/mm3 0.0-0.7 10:55am Basophils # (Auto) July 02, 2019 0.07 1000/mm3 0.0-0.1 10:55am Absolute Immature July 02, 2019 0.0 0-1 Granulocyte (auto 10:55am Differential Method July 02, 2019 Automated 10:55am Differential October 02, 2019 See comments Micro cytic hypochromic anemia,suggestive of iron deficiency. Pathologist's Review 10:38am Robinson Stinson MD 10/03/19 Prothrombin Time October 02, 2019 12.1 SECONDS High 9.6-11.2 10:38am Prothromb Time October 02, 2019 1.2 Low 2.0-3.0 INR v alue valid International Ratio 10:38am only on patients on stabilized warfarin therapy. The recommended therapeutic range for warfarin (Coumadin) for most clinical indications is an INR of 2.0-3.0. An IN R of 2.5-3.5 is recommended fo r patients with mechanical hea rt valves. Sodium Level October 02, 2019 139 mmol/L 137-145 10:38am Potassium Level October 02, 2019 3.6 mmol/L 3.6-5.0 10:38am Chloride Level October 02, 2019 103 mmol/L 98-107 10:38am Carbon Dioxide Level October 02, 2019 28 mmol/L 22-30 10:38am Anion Gap October 02, 2019 8 7-16 10:38am Blood Urea Nitrogen October 02, 2019 8 mg/dL 8-26 10:38am Creatinine October 02, 2019 0.64 mg/dL Low 0.66-1.25 10:38am Glomerular Filtration October 02, 2019 > 60 mL/min 60.0- Rate Calc 10:38am Glucose Level October 02, 2019 103 mg/dL High 70-100 10:38am Calcium Level October 02, 2019 8.2 mg/dL Low 8.4-10.2 10:38am Calcium Adjusted for October 02, 2019 8.7 mg/dL 8.4-10.2 Albumin 10:38am Transferrin October 02, 2019 376 mg/dL High 201-352 Test per formed or referred by 10:38am The [address] [address] Total Bilirubin October 02, 2019 1.0 mg/dL 0.2-1.3 10:38am Aspartate Amino Transf October 02, 2019 83 U/L High 17-59 (AST/SGOT) 10:38am Alanine October 02, 2019 42 U/L 21-72 Aminotransferase 10:38am (ALT/SGPT) Total Protein October 02, 2019 8.4 g/dL High 6.3-8.2 10:38am Albumin October 02, 2019 3.7 g/dL 3.5-5.0 10:38am Alkaline Phosphatase October 02, 2019 118 U/L 38-126 10:38am Thyroid Stimulating October 02, 2019 4.87 mlU/L High 0.47-4.68 TSH cascade is Hormone (TSH) 10:38am not recomme nded for patients i n which pituitar y or hypothalmic disorders are suspected. Free Thyroxine October 02, 2019 1.16 ng/dL 0.78-2.19 10:38am Hemoglobin A1c Percent October 02, 2019 5.61 % <5.7%: Normal 10:38am 5.7%-6.4%: Pre diabetes >=6.5%: Diagno stic for diabetes Goals for Glyc emic Control in Diabetes (ADA 2018) <7.0%: A1c tar get for non adults with diabetes. More or less stringent glycemic goals may be appropriate for individual patients. <7.5%: A1c tar get for children and adolescents with type I diabetes. A lower goal is reasonable if it can be achieved without excessive hypoglycemia. Estimated Average October 02, 2019 114 mg/dL Glucose mg/dL 10:38am Ferritin October 02, 2019 16.1 ng/mL Low 22-322 The resul ts of 10:38am this assay can be falsely decreased in patients who consume Biotin . Chief Complaint and Reason for Visit Encounter Admit Date Chief Complaint Reason for Visit Departed Referred October 02, 2019 6:06pm D64.9 Hospital Discharge Instructions No known hospital discharge [...] Ca 1 TAB ORAL THREE September Active Fkkv-Zxmxcdkcr-E TIMES A 2018 ilk This DAY Oqdlsddz-Vey-Mub 1 TAB ORAL DAILY September Active n-Folic-Vit K1 2018 Encounters Encounter Facility Location Admit/Visit Discharge/Departure Atte nding Date Date Provider Departed [facility] October 02October 02, 2019 6:07pm [facility] 2019 6[facility]06pm [facility]July 02, [facility] 7[facility]14[facility]di Dep[facility] May 02, 2019 May 02, 2019 10:1 6am [facility] 10:15am [facility] Functional Status No known functional status. Immunizations No known immunizations. Payers Payer Name Policy Type Covered Covered Relationship Subscriber Sub scriber Id Alliance Party Alliance Party Id MEDICAID OF Medicaid [facility] [id number] Self/Same as [facility] [id number] [place] Patient SELF PAY Personal [place] MEDICAID Medicaid [facility] [id number] Self/Same as [facility] [id number] (DO NOT USE) Patient Plan of Care No Known Plan of Care Information Social History No known social history. Vital Signs No known vital signs results.
--- OUTSIDE RECORDS SUMMARY | 2022-07-21 01:15 | XMS_ITS | Continuity of Care Document ---
:[address] [facility] Address [address] [place] [address] Care Team Providers Name Role Phone Camron Suarez Primary Care Physician Unavailable Mehdi London Attending Physician Unavailable Allergies, Adverse Reactions, Alerts Allergen Type Severity [...] TAB ORAL THREE TIMES October 01, Active Iuyv-Jijsakeeo-Wtb A DAY 2018 k Thistle [Liver-Kidney Cleanser] Pskznvtd-Qls-Pvoi- 1 TAB ORAL DAILY October 01, Ac [...] biopsy October 01, 2018 completed Mindy Ramirez MD Relevant Diagnostic Tests and/or Laboratory Data Laboratory Results Test Date/Time Result Interp. Ref. Range Result Comment White Blood Count July 02, 2019 3.55 1000/mm3 Low 4.8-10.8 10:55am Red Blood Count July 02, 2019 4.66 M/mm3 Low 4.70-6.00 10:55am Hemoglobin July 02, 2019 9.0 g/dL Low 14.0-18.0 10:55am Hematocrit July 02, 2019 32.7 % Low 42-52 10:55am Mean Corpuscular July 02, 2019 70.2 fL Low 80.0-94.0 Volume 10:55am Mean Corpuscular July 02, 2019 19.3 pg Low 27-31 Hemoglobin 10:55am Mean Corpuscular July 02, 2019 27.5 g/dL Low 33-37 Hemoglobin Concent 10:55am Red Cell Distribution July 02, 2019 21.7 % High 11.5-14.5 Width 10:55am Platelet Count July 02, 2019 104 1000/mm3 Low 140-440 10:55am Mean Platelet Volume July 02, 2019 10.4 fL 7.4-10.4 10:55am Neutrophils (%) (Auto) July 02, 2019 52.9 [...] Differential Method July 02, 2019 Automated 10:55am Platelet Estimate December 26, 2018 Adequate 10:27am Target Cells December 26, 2018 2+ 10:27am Sodium Level May 02, 2019 135 mmol/L Low 137-145 10:15am Potassium Level May 02, 2019 3.4 mmol/L Low 3.6-5.0 10:15am Chloride Level May 02, 2019 102 mmol/L 98-107 10:15am Carbon Dioxide Level May 02, 2019 25 mmol/L 22-30 10:15am Anion Gap May 02, 2019 8 7-16 10:15am Blood Urea Nitrogen May 02, 2019 7 mg/dL Low 8-26 10:15am Creatinine May 02, 2019 0.73 mg/dL 0.66-1.25 10:15am Glomerular Filtration May 02, 2019 > 60 mL/min 60.0- Rate Calc 10:15am Glucose Level May 02, 2019 93 mg/dL 70-100 10:15am Calcium Level May 02, 2019 8.0 mg/dL Low 8.4-10.2 10:15am Calcium Adjusted for May 02, 2019 9.1 mg/dL 8.4-10.2 Albumin 10:15am Transferrin May 02, 2019 289 mg/dL 201-352 Test perf ormed or referred by 10:15am The [place] [id number] Total Bilirubin May 02, 2019 1.6 mg/dL High 0.2-1.3 10:15am Aspartate Amino Transf May 02, 2019 95 U/L High 17-59 (AST/SGOT) 10:15am Alanine May 02, 2019 66 U/L 21-72 Aminotransferase 10:15am (ALT/SGPT) Total Protein May 02, 2019 6.9 g/dL 6.3-8.2 10:15am Albumin May 02, 2019 2.9 g/dL Low 3.5-5.0 10:15am Cholesterol Level October 08, 110 mg/dL 59-199 2018 9:42am HDL Cholesterol October 08, 46 mg/dL 40-60 The [employer] Cholesterol Education Program (NCEP) has set the following guidelines (reference values) for cholesterol, HDL: 2019 9:42am Low HDL: <40 mg/dL Normal: 40-60 mg/dL Desirable: >60 mg/dL LDL Cholesterol October 08, 50.0 mg/dL 0-129 2018 9:42am VLDL Cholesterol October 08, 14.0 mg/dL 0-32 2018 9:42am Cholesterol/HDL Ratio October 08, 2.39 0-3.9 2018 9:42am Triglycerides Level October 08, 70 mg/dL 0-149 2018 9:42am Alkaline Phosphatase May 02, 2019 135 U/L High 38-126 10:15am Thyroid Stimulating May 02, 2019 7.15 mlU/L High 0.47-4.68 T SH cascade is Hormone (TSH) 10:15am not recomme nded for patients i n which pituitar y or hypothalmic disorders are suspected. Free Thyroxine May 02, 2019 1.25 ng/dL 0.78-2.19 10:15am Hemoglobin A1c Percent May 02, 2019 5.34 % <5.7%: Normal 10:15am 5.7%-6.4%: Pre diabetes >=6.5%: Diagno stic for [...] be achieved without excessive hypoglycemia. Estimated Average May 02, 2019 107 mg/dL Glucose mg/dL 10:15am Ferritin May 02, 2019 10.6 ng/mL Low 22-322 The result s of 10:15am this assay can be falsely decreased in patients who consume Biotin . Hospital Discharge Instructions No known hospital discharge instructions. Hospital Discharge Medications Medication Dose Units Route Sig Qty Days Order Status Instru ctions Date Hydrochlorothiaz 1 CAP ORAL DAILY February 28, Discon tinued lisseth/Triamter 2011 Pantoprazole 40 MG ORAL TWICE A January 31, Discontin ued Take 1 tablet DAY 2015 twice felicita y Phenobarbital 16.2 MG ORAL TWICE A January 31, Disconti nued Take 1/ DAY 2015 tablet by mouth twic e daily, fir st dose Phenobarbital 32.4 MG ORAL THREE January 31, Discontin ued Take 1 tablet TIMES A 2015 by mouth every DAY 8 hours (6 AM, 2PM, 10PM) Phenobarbital 16.2 MG ORAL TWICE A January 31, Disconti nued Take / DAY 2015 tablet by mouth twic e daily, fir st dose 10AM Ferrous Sulfate 325 MG ORAL DAILY September Active 2018 Triamterene-Hydr 1 TAB ORAL DAILY September Active ochlorothiazid 2018 Ca 1 TAB ORAL THREE September Active Jazi-Nqzmxpaos-U TIMES A 2018 ilk This DAY Uwlupqud-Cvr-Fdr 1 TAB ORAL DAILY September Active n-Folic-Vit K1 2018 Encounters Encounter Facility Location Admit/Visit Discharge/Departure Atte nding Date Date Provider Departed [facility] Referred Lab July 02July 02, 2019 Shira palma [facility] 2018 7[facility]14[facility] December 26, 2018 December 26, 2018 [facility] October 08October 08, 2018 Jane estrella [facility] 2018 9:42am 9:[facility] October 01October 01, 2018 [facility] 2019 9:04am 11:58[facility]September 12[facility] 2018 Jeff [facility] 2018 12:00am [facility]August 20, 2018 [facility] 7:51pm 7:52pm Camron Puga [facility] Emergency July 16July 16, 2018 [facility] 2017 5:32pm 7:02pm Functional Status Query Response Date Recorded Comment Comprehension Ability Understands Concepts October 01, 2018 9:39a m Query Response Date Recorded Comment Living Situation Alone October 01, 2018 9:39am Home Immunizations No known immunizations. Payers Payer Name Policy Type Covered Covered Relationship Subscriber Sub scriber Id Democrat Democrat Id MEDICAID OF Medicaid [facility] [id number] Self/Same as [facility] [id number] [place] Patient SELF PAY Personal [place] MED[place] Medicaid [facility] [id number] Self/Same as [facility] [id number] (DO NOT USE) Patient Plan of Care No Known Plan of Care Information Social History No known social history. Vital Signs Vital Reading Result Reference Range [...]
--- OUTSIDE RECORDS SUMMARY | 2022-07-21 01:15 | XMS_ITS | Continuity of Care Document ---
:1955 Author Organization [facility] Address [address] [place] [address] Care Team Providers Name Role Phone Camron Suarez Primary Care Physician Mindy Ramirez Attending Physician Allergies, Adverse Reactions, Alerts Allergen Type Severity Reaction Last Updated Verified Status aspirin Allergy bleeding October 01 Y Active 2018 acetaminophen Adverse Reaction makes sides ache October 01 Active 2018 Medications Active Medications Medication Dose Units Route Sig Qty Start Date Status In structions Ferrous Sulfate 325 MG ORAL DAILY October 01, Activ e 2019 Triamterene-Hydroc 1 TAB ORAL DAILY October 01, Ac tive hlorothiazid 2019 Ca 1 TAB ORAL THREE TIMES October 01, Active Jtrp-Zntpjpwrq-Bcm A DAY 2018 k Thistle [Liver-Kidney Cleanser] Jfzzgicq-Vka-Pclj- 1 TAB ORAL DAILY October 01, Ac [...] Ref. Range Result Comment White Blood Count August 20, 4.28 Low 4.8-10.8 2017 10:00am 1000/mm3 Red Blood Count August 20, 4.14 M/mm3 Low 4.70-6.00 2017 10:00am Hemoglobin August 20, 9.4 g/dL Low 14.0-18.0 2017 10:00am Hematocrit August 20, 32.2 % Low 42-52 2017 10:00am Mean Corpuscular August 20, 77.8 fL Low 80.0-94.0 Volume 2018 10:00am Mean Corpuscular August 20, 22.7 pg Low 27-31 Hemoglobin 2018 10:00am Mean Corpuscular August 20, 29.2 g/dL Low 33-37 Hemoglobin Concent 2017 10:00am Red Cell Distribution August 20, 18.0 % High 11.5-14.5 Width 2017 10:00am Platelet Count August 20, 113 1000/mm3 Low 704-013 8583 10:00am Mean Platelet Volume August 20, 11.0 fL High 7.4-10.4 2017 10:00am Sodium Level August 20, 137 mmol/L 151-299 8219 10:00am Potassium Level August 20, 3.7 mmol/L 3.6-5.0 2017 10:00am Chloride Level August 20, 104 mmol/L 98-107 2017 10:00am Carbon Dioxide Level August 20, 26 mmol/L 2017 10:00am Anion Gap August 20-2017 10:00am Blood Urea Nitrogen August 20, 9 mg/dL 05-19 10:00am Creatinine August 20, 0.91 mg/dL 0.66-1.25 2017 10:00am Glomerular Filtration August 20, > 60 mL/min 60.0- Rate Calc 2017 10:00am Glucose Level August 20, 99 mg/dL 70-100 2017 10:00am Calcium Level August 20, 8.1 mg/dL Low 8.4-10.2 2017 10:00am Calcium Adjusted for August 20, 9.1 mg/dL 8.4-10.2 Albumin 2018 10:00am Transferrin August 20, 301 mg/dL 201-352 Test Perfor med by: 2017 10:00am THE [address], [place] [address] Total Bilirubin August 20, 1.2 mg/dL 0.2-1.3 2017 10:00am Aspartate Amino Transf August 20, 69 U/L High 17-59 (AST/SGOT) 2018 10:00am Alanine August 20, 46 U/L 21-72 Aminotransferase 2018 10:00am (ALT/SGPT) Total Protein August 20, 7.3 g/dL 6.3-8.2 2017 10:00am Albumin August 20, 3.1 g/dL Low 3.5-5.0 2017 10:00am Alkaline Phosphatase August 20, 124 U/L 38-126 2017 10:00am Thyroid Stimulating August 20, 6.50 mlU/L High 0.47-4.68 TSH cascade is Hormone (TSH) 2018 10:00am not recom mended for patients i n which pituitar y or hypothalmic disorders are suspected. Free Thyroxine August 20, 1.14 ng/dL 0.78-2.19 2017 10:00am Hemoglobin A1c Percent August 20, 5.06 % <5.7%: Normal 2017 10:00am 5.7%-6.4%: P rediabetes >=6.5%: Diagno stic [...] Average August 20, 99 mg/dL Glucose mg/dL 2017 10:00am Ferritin August 20, 13.4 ng/mL Low 22-322 The results of 2018 10:00am this assay c an be falsely decrea sed in patients wh o consume Biotin . Advance Directives Advance Directive Response Recorded Date/Time Do we have a copy on file here at [facility]? No J 2016 12:14pm Does patient have an Advanced Directive? No January 30, 2012 10:45am Pt has a Living Will? No January 30, 2012 10:45a m Pt has a Power of Hammer Adjuster? No January 30, 2012 10:45am Chief Complaint and Reason for Visit Encounter Admit Date Chief Complaint Reason for Visit Departed Surgical Day Care October 01, 2018 9:04am Hematemesis Hospital Discharge Instructions No known hospital discharge instructions. Hospital Discharge Medications Medication Dose Units Route Sig Qty Days Order Status Instru ctions Date Hydrochlorothiaz 1 CAP ORAL DAILY February 28, on tinued lisseth/Triamter 2011 Pantoprazole 40 MG ORAL [...] Ca 1 TAB ORAL THREE September Active Znwp-Fnvmwwoak-J TIMES A 2018 Ojahtwrp-Ijc-Qlt 1 TAB ORAL DAILY September Active n-Folic-Vit K1 2018 Encounters Encounter Facility Location Admit/Visit Discharge/Departure Atte nding Date Date Provider Departed [facility] Surgical October 01October 01, 2018 [facility] 2019 9:04am 11:58am Mindy Akers Departed [facility] August 20August 20, 2018 [facility] 7[facility]July 16, 2018 [facility] 5[facility]32[facility] 30April 30, 2018 [facility] 04, 2018 April 04, 2018 7:03pm [facility] 2018 March 18, 2018 2[facility] 2017 12:11pm 12:12pm [facility] November 28, 2017 November 28, 2017 6:39pm [facility] 6:38pm Camron Functional Status No known functional status. Immunizations No known immunizations. Payers Payer Name Policy Type Covered Covered Relationship Subscriber Sub scriber Id Republican Republican Id MEDICAID OF Medicaid [facility] [id number] Self/Same as [facility] [id number] [place] Patient SELF PAY Personal [place] MED[place] Medicaid [facility] [id number] Self/Same as [facility] [id number] (DO NOT USE) Patient Plan of Care [...]
--- OUTSIDE RECORDS SUMMARY | 2022-07-21 01:15 | XMS_ITS | Continuity of Care Document ---
:1955 Author Organization [facility] Address [address] [place] [address] Care Team Providers Name Role Phone Camron Suarez Primary Care Physician Camron Suarez Attending Physician Allergies, Adverse Reactions, Alerts Allergen Type Severity Reaction Last Updated Verified Status aspirin Allergy bleeding September 302015 acetaminophen Adverse Reaction makes sides ache September 30 Active 2016 Medications Active Medications Medication Dose Units Route Sig Qty Start Date Status In structions Hydrochlorothiazide 1 CAP ORAL DAILY February 28, Acti ve /Triamter [HYDR 2011 OCHLOROTHIAZIDE/TRI AM 25 mg-37.5 mg] Pantoprazole 40 MG ORAL TWICE A DAY January 31, Active Take 1 tablet [Protonix] 2015 twice daily Phenobarbital 32.4 MG ORAL THREE TIMES January 31, Active Take 1 tablet by A DAY 2016 mouth ev jenni 8 hours (6 AM, 2PM, 10PM) Phenobarbital 16.2 MG ORAL TWICE A DAY January 31, Active Take 1/2 tablet 2016 by mouth twice daily, f irst dose 02/03/16 10AM Discontinued Medications Medication Dose Units Route Sig Qty Start Discontinued Status Instructions Date Date Phenobarbital 16.2 MG ORAL TWICE 2 JanuaryFebruary 01, 2016 Disc ontinued Take 1/2 A DAY , tablet by 2015 mouth twic e daily, fir st dose Problem List Active Problems Medical Problem Onset Date Status Alcohol abuse Active Liver cirrhosis Active Acute GI bleeding Active Hypertension Active Procedures Procedure Date Status CT Chest w/ Contrast August 20, 2017 active MRI Abd w/wo Contrast June 05, [address] Chest w/ Contrast March 07, 2017 completed Chest 2 vw February 27, 2017 completed Relevant Diagnostic Tests and/or Laboratory Data Laboratory Results Test Date/Time Result Interp. Ref. Range Result Comment White Blood Count July 26, 3.89 Low 4.8-10.8 2017 10:04am 1000/mm3 Red Blood Count July 26, 5.22 M/mm3 4.70-6.00 2017 10:04am Hemoglobin July 26, 15.6 g/dL 14.0-18.0 2017 10:04am Hematocrit July 26, 47.8 % 42-52 2017 10:04am Mean Corpuscular July 26, 91.6 fL 80.0-94.0 Volume 2017 10:04am Mean Corpuscular July 26, 29.9 pg 27-31 Hemoglobin 2017 10:04am Mean Corpuscular July 26, 32.6 g/dL Low 33-37 Hemoglobin Concent 2017 10:04am Red Cell Distribution July 26, 15.7 % High 11.5-14.5 Width 2017 10:04am Platelet Count July 26, 82 1000/mm3 Low 871-116 9203 10:04am Mean Platelet Volume July 26, 12.4 fL High 7.4-10.4 2017 10:04am Sodium Level July 26, 141 mmol/L 565-241 9764 10:04am Potassium Level July 26, 3.8 mmol/L 3.6-5.0 2016 10:04am Chloride Level July 26, 105 mmol/L 98-107 2016 10:04am Carbon Dioxide Level July 26, 23 mmol/L -2016 10:04am Anion Gap July 26, 13 7-16 2016 10:04am Blood Urea Nitrogen July 2, 6 mg/dL Low 8-2016 10:04am Creatinine July 26, 0.7 mg/dL 0.66-1.25 2016 10:04am Glomerular Filtration July 26, > 60 mL/min 60.0- Rate Calc 2016 10:04am Glucose Level July 26, 167 mg/dL High 70-100 2016 10:04am Calcium Level July 26, 9.0 mg/dL 8.4-10.2 2017 10:04am Calcium Adjusted for July 26, 9.4 mg/dL 8.4-10.2 Albumin 2017 10:04am Total Iron Binding November 07, 513 ug/dL High 261-462 Test Performed by: Capacity 2016 10:34[place] [address] Production Inspector: James Schreiber MD , Ph D Total Iron Binding March 14, 2017 437 ug/dL 261-462 Capacity 10:30am Transferrin July 26, 320 mg/dL 202-336 Test Perform ed by: 2016 10:04[place] [address] Production Inspector: James Schreiber MD , Ph D Total Bilirubin July 26, 1.4 mg/dL High 0.2-1.3 2016 10:04am Aspartate Amino Transf July 26, 150 U/L High 17-59 (AST/SGOT) 2017 10:04am Alanine July 26, 88 U/L High 21-72 Aminotransferase 2017 10:04am (ALT/SGPT) Total Protein July 26, 8.4 g/dL High 6.3-8.2 2016 10:04am Albumin July 26, 3.8 g/dL 3.5-5.0 2016 10:04am Alkaline Phosphatase July 26, 132 U/L High 38-126 2016 10:04am Thyroid Stimulating July 26, 6.02 mlU/L High 0.47-4.68 TSH cascade is Hormone (TSH) 2016 10:04am not recom mended for patients i n which pituitar y or hypothalmic disorders are suspected. Free Thyroxine July 26, 0.99 ng/dL 0.78-2.19 2016 10:04am Ferritin July 26, 52.9 ng/mL 22-322 2016 10:04am Advance Directives Advance Directive Response Recorded Date/Time Do we have a copy on file here [place] [facility]? No J 2016 12:14pm Does patient have an Advanced Directive? No January 30, 2012 10:45am Pt has a Living Will? No January 30, 2012 10:45a m Pt has a Power of Slicing Machine Operator/Tender? No January 30, 2012 10:45am Chief Complaint and Reason for Visit Encounter Admit Date Chief Complaint Reason for Visit Departed Clinical August 20, 2017 12:59pm ABNORMAL FINDING ON LUNG FIELD, 6 MONTH F/U R91.8 Hospital Discharge Instructions No known hospital discharge instructions. Hospital Discharge Medications Medication Dose Units Route Sig Qty Days Order Status Instru ctions Date Hydrochlorothiaz 1 CAP ORAL DAILY February 28, Active lisseth/Triamter 2011 Pantoprazole 40 MG ORAL TWICE A 30 January 31, Active Ta ke 1 tablet DAY 2015 twice felicita y Phenobarbital 16.2 MG ORAL TWICE A January 31, Disconti nued Take 1/2 DAY 2015 tablet by mouth twic e daily, fir st dose Phenobarbital 32.4 MG ORAL THREE January 31, Active Ta ke 1 tablet TIMES A 2016 by mouth every DAY 8 hours (6 AM, 2PM, 10PM) Phenobarbital 16.2 MG ORAL TWICE A January 31, Active T dixie / DAY 2015 tablet by mouth twic e daily, fir st dose 10AM Encounters Encounter Facility Location Admit/Visit Discharge/Departure Atte nding Date Date Provider Departed [facility] August 20August 20, 2017 Josee recinos [facility] 2016 12:59pm 1:00pm [facility] 26July 26, [facility] 7:04pm 7:05pm [facility] June 05June 05, 2017 [facility] 2016 12:44pm 12:45pm [facility] June 04June 04, [facility] 2016 8:22pm 8:23pm [facility] March 14, 2017 March 14, 2017 8:43pm [facility] 8:42pm [facility] March 07, 2017 March 07, 2017 1:11pm [facility] 1:10pm [facility] February 27, 2017 February 27, 2017 12:10pm [facility] 12:09pm [facility] November 07, [facility] 2016 7:07pm Camron Functional Status No known functional status. Immunizations No known immunizations. Payers Payer Name Policy Type Covered Covered Relationship Subscriber Sub scriber Id Alliance Party Alliance Party Id MEDICAID OF Medicaid [facility] [id number] Self/Same as [facility] [id number] [place] Patient SELF PAY Personal [place] MEDICA[place] Medicaid [facility] [id number] Self/Same as [facility] [id number] (DO NOT USE) Patient Plan of Care [...]
--- OUTSIDE RECORDS SUMMARY | 2022-07-21 01:15 | XMS_ITS | Continuity of Care Document ---
:1955 Author Organization [facility] Address [address] [place] [address] Care Team Providers Name Role Phone Camron Suarez Primary Care Physician Camron Suarez Attending Physician Allergies, Adverse Reactions, Alerts Allergen Type Severity Reaction Last Updated Verified Status aspirin Allergy bleeding September 30 Active 2015 acetaminophen Adverse Reaction makes sides ache September 30 Active 2015 Medications Active Medications Medication Dose Units Route Sig Qty Start Date Status In structions Hydrochlorothiazid 1 CAP ORAL DAILY February 28, Activ e e/Triamter [HYDR 2012 OCHLOROTHIAZIDE/TR ZION 25 mg-37.5 mg] Pantoprazole 40 MG ORAL TWICE A DAY January 31, Active Take 1 tablet [Protonix] 2015 twice daily Discontinued Medications Medication Dose Units Route Sig [...] biceps muscle Inactive Procedures Procedure Date Status Hip 2 vw Min RT January 01, [address] Chest w/ Contrast August 20, 2017 completed MRI Abd w/wo Contrast June 05, 2017 completed Relevant Diagnostic Tests and/or Laboratory Data Laboratory Results Test Date/Time Result Interp. Ref. Range Result Comment White Blood Count April 04, 2018 4.28 Low 4.8-10.8 8:55am 1000/mm3 Red Blood Count April 04, 2018 4.82 M/mm3 4.70-6.00 8:55am Hemoglobin April 04, 2018 15.4 g/dL 14.0-18.0 8:55am Hematocrit April 04, 2018 47.7 % 42-52 8:55am Mean Corpuscular April 04, 2018 99.0 fL High 80.0-94.0 Volume 8:55am Mean Corpuscular April 04, 2018 32.0 pg High 27-31 Hemoglobin 8:55am Mean Corpuscular April 04, 2018 32.3 g/dL Low 33-37 Hemoglobin Concent 8:55am Red Cell Distribution April 04, 2018 15.2 % High 11.5-14.5 Width 8:55am Platelet Count April 04, 2018 71 1000/mm3 Low 140-440 8:55am Mean Platelet Volume April 04, 2018 12.7 fL High 7.4-10.4 8:55am Sodium Level April 04, 2018 141 mmol/L 137-145 8:55am Potassium Level April 04, 2018 3.9 mmol/L 3.6-5.0 8:55am Chloride Level April 04, 2018 107 mmol/L 98-107 8:55am Carbon Dioxide Level April 04, 2018 23 mmol/L 22-30 8:55am Anion Gap April 04, 2018 11 7-16 8:55am Blood Urea Nitrogen April 04, 2018 8 mg/dL 8-26 8:55am Creatinine April 04, 2018 0.68 mg/dL 0.66-1.25 8:55am Glomerular Filtration April 04, 2018 > 60 mL/min 60.0- Rate Calc 8:55am Glucose Level April 04, 2018 78 mg/dL 70-100 8:55am Calcium Level April 04, 2018 8.5 mg/dL 8.4-10.2 8:55am Calcium Adjusted for April 04, 2018 9.4 mg/dL 8.4-10.2 Albumin 8:55am Transferrin November 28, 2017 258 mg/dL 202-336 Test Perfo rmed by: 10:26[place] [address] Radiotelegraph Operator Servicer: James Schreiber MD , Ph D Total Bilirubin April 04, 2018 2.1 mg/dL High 0.2-1.3 8:55am Aspartate Amino Transf April 04, 2018 151 U/L High 17-59 (AST/SGOT) 8:55am Alanine April 04, 2018 87 U/L High 21-72 Aminotransferase 8:55am (ALT/SGPT) Total Protein April 04, 2018 7.8 g/dL 6.3-8.2 8:55am Albumin April 04, 2018 3.2 g/dL Low 3.5-5.0 8:55am Alkaline Phosphatase April 04, 2018 147 U/L High 38-126 8:55am Thyroid Stimulating April 04, 2018 4.77 mlU/L High 0.47-4.68 TS H cascade is Hormone (TSH) 8:55am not recomme nded for patients i n which pituitar y or hypothalmic disorders are suspected. Free Thyroxine April 04, 2018 1.16 ng/dL 0.78-2.19 8:55am Hemoglobin A1c Percent April 04, 2018 5.05 % 4.2-6.5 < 7% Recommended goal by ADA guidelines 8:55am 7-8% Suboptima l by ADA guidelines >8% Further ac tion suggested by ADA guidelines Estimated Average April 04, 2018 98 mg/dL Glucose mg/dL 8:55am Ferritin April 04, 2018 188 ng/mL 22-322 8:55am Advance Directives Advance Directive Response Recorded Date/Time Do we have a copy on file here at [facility]? No J 2016 12:14pm Does patient have an Advanced Directive? No January 30, 2012 10:45am Pt has a Living Will? No January 30, 2012 10:45a m Pt has a Power of Road Roller Engineer? No January 30, 2012 10:45am Hospital Discharge Instructions No known hospital discharge instructions. Hospital Discharge Medications Medication Dose Units Route Sig Qty Days Order Status Instru ctions Date Hydrochlorothiaz 1 CAP ORAL DAILY February 28, Active lisseht/Triamter 2011 Pantoprazole 40 MG ORAL TWICE A January 31, Active Ta ke 1 tablet DAY 2015 twice felicita y Phenobarbital 16.2 MG ORAL TWICE A January 31, Disconti nued Take 1/2 DAY 2016 tablet by mouth twic e daily, fir st dose Phenobarbital 32.4 MG ORAL THREE January 31, Discontin ued Take 1 tablet TIMES A 2016 by mouth every DAY 8 hours (6 AM, 2PM, 10PM) Phenobarbital 16.2 MG ORAL TWICE A January 31 Devorahi sophia Take 1/2 DAY 2015 tablet by mouth twic e daily, fir st dose 10AM Encounters Encounter Facility Location Admit/Visit Discharge/Departure Atte nding Date Date Provider Departed [facility] April 04, 2018 April 04, 2018 [facility] March 18, 2018 March 18, 2018 2:41 pm [facility] 2:06pm [facility]January 01, [facility] 12[facility] 12:12pm [facility] November 28, 2017 November 28, 2017 6:39pm [facility] 6:38pm [facility] 20August 20, [facility] 12:59pm 1:00pm [facility] July 26July 26, 2017 [facility] 7:04pm 7:05pm [facility] June 05June 05, 2017 [facility] 12:44pm 12:45pm [facility] June 04June 04, 2017 [facility] 2016 8:22pm 8:23pm Camron Functional Status No known functional status. Immunizations No known immunizations. Payers Payer Name Policy Type Covered Covered Relationship Subscriber Sub scriber Id Green Party Green Party Id MEDICAID OF Medicaid [facility] [id number] Self/Same as [facility] [id number] [place] Patient SELF PAY Personal [place] [facility] [id number] Self/Same as [facility] [id number] (DO NOT USE) Patient Plan of Care No Known Plan of Care Information Social History Query Response Date Recorded Comment Alcohol Heavy February 26, 2016 1:28am Living Situation With Family January 30, 2016 9:21am Vital Signs Vital Reading Result Reference Range Collection Date/ Time Height n/a Weight 98.883 kg March 18, 2018 2: 18pm Temperature 98.9 F 97.6 F-99.6 F March 18, 2018 2: 18pm Pulse 97 BPM 60-100 March 18, 2018 2: 18pm Respiration 18 RPM 12-24 March 18, 2018 2: 18pm Pulse Oximetry 98 % 95-100 March 18, 2018 2: 18pm Blood Pressure Systolic 110 100-140 March 18, 2018 2:18pm Blood Pressure Diastolic 80 50-85 February 2:18pm Body Mass Index n/a
--- OUTSIDE RECORDS SUMMARY | 2022-07-21 01:15 | XMS_ITS | Continuity of Care Document ---
:1955 Author Organization [facility] Address [address] [place] [address] Care Team Providers Name Role Phone Camron Suarez Primary Care Physician Jia Bledsoe Attending Physician Allergies, Adverse Reactions, Alerts Allergen [...] TAB ORAL THREE TIMES October 01, Active Grdv-Skutrkhyq-Gjs A DAY 2018 k Thistle [Liver-Kidney Cleanser] Urihwwic-Bar-Kime- 1 TAB ORAL DAILY October 01, Ac [...] Laboratory Results Test Date/Time Result Interp. Ref. Result Comment Range White Blood Count April 30, 2020 3.94 1000/mm3 Low 4.8-10.8 11:35am Red Blood Count April 30, 2020 5.54 M/mm3 4.70-6.00 11:35am Hemoglobin April 30, 2020 13.3 g/dL Low 14.0-18.0 11:35am Hematocrit April 30, 2020 44.4 % 42-52 11:35am Mean Corpuscular April 30, 2020 80.1 fL 80.0-94.0 Volume 11:35am Mean Corpuscular April 30, 2020 24.0 pg Low 27-31 Hemoglobin 11:35am Mean Corpuscular April 30, 2020 30.0 g/dL Low 33-37 Hemoglobin Concent 11:35am Red Cell Distribution April 30, 2020 20.5 % High 11.5-14.5 Width 11:35am Platelet Count April 30, 2020 115 1000/mm3 Low 140-440 11:35am Mean Platelet Volume April 30, 2020 10.8 fL High 7.4-10.4 11:35am Neutrophils (%) April 30, 2020 49.9 % 40.0-72.0 (Auto) 11:35am Lymphocytes (%) April 30, 2020 30.2 % 17-45 (Auto) 11:35am Monocytes (%) (Auto) April 30, 2020 12.2 % High 3-11 11:35am Eosinophils (%) April 30, 2020 5.6 % High 0-3 (Auto) 11:35am Basophils (%) (Auto) April 30, 2020 1.8 % High 0-1 11:35am Immature Granulocyte April 30, 2020 0.3 % 0-1 % (Auto) 11:35am Neutrophils # (Auto) April 30, 2020 1.97 1000/mm3 1.4-6.5 11:35am Lymphocytes # (Auto) April 30, 2020 1.19 1000/mm3 Low 1.2-3.4 11:35am Monocytes # (Auto) April 30, 2020 0.48 1000/mm3 0.0-0.8 11:35am Eosinophils # (Auto) April 30, 2020 0.22 1000/mm3 0.0-0.7 11:35am Basophils # (Auto) April 30, 2020 0.07 1000/mm3 0.0-0.1 11:35am Absolute Immature April 30, 2020 0.0 0-1 Granulocyte (auto 11:35am Differential Method April 30, 2020 Automated 11:35am Differential October 02, See comments Microcytic hypochromic anemia,suggestive of iron deficiency. Pathologist's Review 2019 10:38am Bruce Stinson MD 10/03/19 Prothrombin Time October 02, 12.1 SECONDS High 9.6-11.2 2019 10:38am Prothromb Time October 02, 1.2 Low 2.0-3.0 INR value valid International Ratio 2019 10:38am onl y on patients on stabilized war farin therapy. The recommended therapeutic ra nge for warfarin (Coumadin) for most clinical indications is an INR of 2.0-3.0 . An INR of 2.5-3.5 is recommended fo r patients with mechanical hea rt valves. Sodium Level April 30, 2020 138 mmol/L 137-145 11:35am Potassium Level April 30, 2020 3.7 mmol/L 3.6-5.0 11:35am Chloride Level April 30, 2020 102 mmol/L 98-107 11:35am Carbon Dioxide Level April 30, 2020 27 mmol/L 22-30 11:35am Anion Gap April 30, 2020 9 7-16 11:35am Blood Urea Nitrogen April 30, 2020 13 mg/dL 8-26 11:35am Creatinine April 30, 2020 0.72 mg/dL 0.66-1.25 11:35am Glomerular Filtration April 30, 2020 > 60 mL/min 60.0- Rate Calc 11:35am Glucose Level April 30, 2020 85 mg/dL 70-100 11:35am Calcium Level April 30, 2020 8.9 mg/dL 8.4-10.2 11:35am Calcium Adjusted for April 30, 2020 8.8 mg/dL 8.4-10.2 Albumin 11:35am Transferrin October 02, 376 mg/dL High 201-352 Test performe d or referred by 2019 10:38am The [address] [address] Total Bilirubin April 30, 2020 1.1 mg/dL 0.2-1.3 11:35am Aspartate Amino April 30, 2020 83 U/L High 17-59 Transf (AST/SGOT) 11:35am Alanine April 30, 2020 37 U/L As of , the Reference Range for ALT/SGPT for adult patients has been updated. Aminotransferase 11:35am The Refe rence Range for ALT/SGPT has not been established for patients <18 years of age. (ALT/SGPT) Total Protein April 30, 2020 8.4 g/dL High 6.3-8.2 11:35am Albumin April 30, 2020 4.4 g/dL 3.5-5.0 11:35am Alkaline Phosphatase April 30, 2020 123 U/L 38-126 11:35am Thyroid Stimulating October 02, 4.87 mlU/L High 0.47-4.68 TSH c ascade is not Hormone (TSH) 2019 10:38am recommend ed for patients in ich pituitary or hypothalmic disorders are suspected. Free Thyroxine October 02, 1.16 ng/dL 0.78-2.19 2019 10:38am Hemoglobin A1c October 02, 5.61 % <5.7%: Nor mal Percent 2019 10:38am 5.7%-6.4%: P rediabetes >=6.5%: Diagno stic for [...] without excessive hypoglycemia. Estimated Average October 02, 114 mg/dL Glucose mg/dL 2019 10:38am Ferritin October 02, 16.1 ng/mL Low 22-322 The results of this 2019 10:38am assay can be falsely decrea sed in patients wh o consume Biotin . Lyme Disease March 04, 2020 Negative New 3rd g eneration assay in use date 03/03/2020 Antibodies Value 11:29am Test per formed or referred by The [address] [address] Anaplasma March 04, 2020 <1:64 titer ---------ADDITIONAL INFORMATION phagocytophila IgG Ab 11:29am Thi s test was developed using an analyte specific reagent. Its performanc e characteristics were determined by [facility] in a mi nner consistent with CLIA requirements. This test has not b een cleared or approved by the U.S. Food and Drug Administr ation. Ehrlichia chaffeensis March 04, 2020 <1:64 titer ADDITIONAL INFORMATION IgG Antibody 11:29am This test wa s developed using an analyte specific reagent. Its performanc e characteristics were determined by [facility] in a ma nner consistent with CLIA requirements. This test has not b een cleared or approved by the U.S. Food and Drug Administr ation. Lyme Disease Serology March 04, 2020 Negative No evidence of antibodies to B. burgdorferi detected. 11:29am False negative results may occur in recently infected patients (<=2 weeks) due to low or undetectable antibody levels to B. b urgdorferi. If recent exposure is suspected, a second sampl e should be collected and tested in 2-4 weeks. Test Performed by: [facility] [address] [place] [address] Electrotype Servicer: Virgilio Hicks M.D. Ph.D.; CLIA# [id number] Babesia microti IgG March 04, 2020 <1:64 titer - ADDITIONAL INFORMATION Antibody 11:29am This test was developed using an analyte specific reagent. Its performanc e characteristics were determined by [facility] in a ma nner consistent with CLIA requirements. This test has not b een cleared or approved by the U.S. Food and Drug Administr ation. Hospital Discharge Instructions No known hospital discharge instructions. Hospital Discharge Medications Medication Dose Units Route Sig Qty Days Order Status Instru ctions Date Hydrochlorothiaz 1 CAP ORAL DAILY February 28 tinued lisseth/Triamter 2011 Pantoprazole 40 MG ORAL [...] Ca 1 TAB ORAL THREE September Active Kgoe-Xganoddee-D TIMES A 2018 ilk This Vswuvuhx-Jvn-Yox 1 TAB ORAL DAILY September Active n-Folic-Vit K1 2018 Encounters Encounter Facility Location Admit/Visit Discharge/Departure Atte nding Date Date Provider Departed [facility][1] April 30, 2020 April 30, 2020 6:12 pm [facility], [facility] March 04, 2020 6:12pm [facility] 6[facility]11pm [facility] October [facility]October 02, 2019 6:07pm [facility] 2019 6:06pm [facility] July 02July 02, 2019 7:[facility]pm [facility] 7[facility] 02, 2019 May 02, 2019 10:1 6am [facility] 10:15am [facility] Functional Status No known functional status. Immunizations No known immunizations. Payers Payer Name Policy Type Covered Covered Relationship Subscriber Sub scriber Id Democrat Democrat Id MEDICAID OF Medicaid [facility] [id number] Self/Same as [facility] [id number] [place] Patient MEDICARE Medicare PART A AND B Primary COVERAGE SELF PAY Personal [place] MED[place] Medicaid [facility] [id number] Self/Same as [facility] [id number] (DO NOT USE) Patient Plan of Care No Known Plan of Care Information Social History No known social history. Vital Signs No known vital signs results.
--- OUTSIDE RECORDS SUMMARY | 2022-07-21 01:15 | XMS_ITS | Continuity of Care Document ---
:1955 Author Organization [facility] Address [address] [place] [address] Care Team Providers Name Role Phone Camron Suarez Primary Care Physician Allergies, Adverse Reactions, Alerts Allergen Type [...] Problem Onset Date Status Alcohol abuse Active Tear of right biceps muscle Active Liver cirrhosis Active Acute GI bleeding Active Hypertension Active Procedures Procedure Date Status Hip 2 vw Min RT January 01, [address] Chest w/ Contrast August 20, 2017 completed MRI Abd w/wo Contrast June 05, 2017 completed Relevant Diagnostic Tests and/or Laboratory Data Laboratory Results Test Date/Time Result Interp. Ref. Range Result Comment White Blood Count November 28, 2017 4.32 Low 4.8-10.8 10:26am 1000/mm3 Red Blood Count November 28, 2017 5.34 M/mm3 4.70-6.00 10:26am Hemoglobin November 28, 2017 16.6 g/dL 14.0-18.0 10:26am Hematocrit November 28, 2017 50.0 % 42-52 10:26am Mean Corpuscular November 28, 2017 93.6 fL 80.0-94.0 Volume 10:26am Mean Corpuscular November 28, 2017 31.1 pg High 27-31 Hemoglobin 10:26am Mean Corpuscular November 28, 2017 33.2 g/dL 33-37 Hemoglobin Concent 10:26am Red Cell Distribution November 28, 2017 14.9 % High 11.5-14.5 Width 10:26am Platelet Count November 28, 2017 75 1000/mm3 Low 140-440 10:26am Mean Platelet Volume November 28, 2017 12.8 fL High 7.4-10.4 10:26am Sodium Level November 28, 2017 139 mmol/L 137-145 10:26am Potassium Level November 28, 2017 3.6 mmol/L 3.6-5.0 10:26am Chloride Level November 28, 2017 100 mmol/L 98-107 10:26am Carbon Dioxide Level November 28, 2017 26 mmol/L 22-30 10:26am Anion Gap November 28, 2017 13 7-16 10:26am Blood Urea Nitrogen November 28, 2017 9 mg/dL 8-26 10:26am Creatinine November 28, 2017 0.77 mg/dL 0.66-1.25 10:26am Glomerular Filtration November 28, 2017 > 60 mL/min 60.0- Rate Calc 10:26am Glucose Level November 28, 2017 58 mg/dL Low 70-100 10:26am Calcium Level November 28, 2017 8.9 mg/dL 8.4-10.2 10:26am Calcium Adjusted for November 28, 2017 9.3 mg/dL 8.4-10.2 Albumin 10:26am Transferrin November 28, 2017 258 mg/dL 202-336 Test Perfo rmed by: 10:26[place] [address] Underground Electrician: James Schreiber MD , Ph D Total Bilirubin November 28, 2017 2.0 mg/dL High 0.2-1.3 10:26am Aspartate Amino Transf November 28, 2017 196 U/L High 17-59 (AST/SGOT) 10:26am Alanine November 28, 2017 123 U/L High 21-72 Aminotransferase 10:26am (ALT/SGPT) Total Protein November 28, 2017 8.4 g/dL High 6.3-8.2 10:26am Albumin November 28, 2017 3.8 g/dL 3.5-5.0 10:26am Alkaline Phosphatase November 28, 2017 159 U/L High 38-126 10:26am Thyroid Stimulating November 28, 2017 4.49 mlU/L 0.47-4.68 TS H cascade is Hormone (TSH) 10:26am not recomme nded for patients i n which pituitar y or hypothalmic disorders are suspected. Free Thyroxine July 26, 0.99 ng/dL 0.78-2.19 2016 10:04am Hemoglobin A1c Percent November 28, 2017 5.10 % 4.2-6.5 < 7% Recommended goal by ADA guidelines 10:26am 7-8% Suboptima l by ADA guidelines >8% Further ac tion suggested by ADA guidelines Estimated Average November 28, 2017 100 mg/dL Glucose mg/dL 10:26am Ferritin November 28, 2017 127 ng/mL 22-322 10:26am Advance Directives Advance Directive Response Recorded Date/Time Do we have a copy on file here at [facility]? No J 2016 12:14pm Does patient have an Advanced Directive? No January 30, 2012 10:45am Pt has a Living Will? No January 30, 2012 10:45a m Pt has a Power of Machine Quilt Stuffer? No January 30, 2012 10:45am Hospital Discharge Instructions Additional Discharge Instructions I suspect a tear of the right bicep muscle, this will require further evaluation by an orthopedic provider. These usually do not require a surgical repair however he may need further imaging to assess the extent of the damage. Orthopedics should be callin g you within the next 1-2 days however if you do not receive this phone call by day after tomorrow and call the number listed below. No strenuous or heavy use of the right arm until cleared by orthopedics. Tylenol or ibuprofen may be helpful for pain as well as cold compress if desired. Instruction/Education Provided Muscle Strain (DC) Hospital Discharge Medications Medication Dose Units Route [...] TWICE A January 31, Disconti nued Take 1 DAY 2015 tablet by mouth twic e daily, fir st dose 10AM Encounters Encounter Facility Location Admit/Visit Discharge/Departure Atte nding Date Date Provider Departed [facility] March 18, 2018 March 18, 2018 2:[facility] pm [facility] 2:06[facility] January 01January 01, 2018 [facility] 2017 12:11pm 12:12pm [facility] November 28, 2017 November 28, 2017 6:39pm [facility] 6:38pm [facility] August 20August 20, 2017 [facility] 12:59pm 1:00pm [facility] July 26July 26, 2017 [facility] 7[facility] 7:05pm [facility] June 05June 05, 2017 [facility] 12:44pm 12:45pm [facility] June 04June 04, 2017 [facility] 8:22pm 8:23pm Harriet Functional Status No known functional status. Immunizations No known immunizations. Payers Payer Name Policy Type Covered Covered Relationship Subscriber Sub scriber Id Libertarian Libertarian Id MEDICAID OF Medicaid [facility] [id number] Self/Same as [facility] [id number] [place] Patient SELF PAY Personal [place] MEDICA[place] Medicaid [facility] [id number] Self/Same as [facility] [id number] (DO NOT USE) Patient Plan of Care Instructions Muscle Strain (DC) Social History Query Response Date Recorded Comment [...]
--- OUTSIDE RECORDS SUMMARY | 2022-07-21 01:15 | XMS_ITS | Continuity of Care Document ---
:1955 Author Organization [facility] Address [address] [place] [address] Care Team Providers Name Role Phone Camron [...] [phone] Test Perfo rmed by: 10:26[place] [address] Devulcanizer Operator: James Schreiber MD , Ph D Total [...] have a copy on file here at [facility]? No J 2016 12:14pm Does patient have an Advanced Directive? No January 30, 2012 10:45am Pt has a Living Will? No January 30, 2012 10:45a m Pt has a Power of Cigar Patcher? No January 30, 2012 10:45am Hospital Discharge [...] Discharge/Departure Atte nding Date Date Provider Departed [facility] April 04, 2018 April 04, 2018 [facility] March 18, 2018 March 18, 2018 2:41 pm [facility] 2:06pm [facility] January 01January 01, [facility] 12:11pm 12:12pm [facility] November 28, 2017 November 28, 2017 6:39pm [facility] 6:38pm [facility] August 20August 20, 2017 [facility] 12:59pm 1:00pm [facility] July 26July 26, 2017 [facility] 7:04[facility] 7:05pm [facility] June 05June 05, 2017 [facility] 12:44pm 12:45pm [facility] June 04June 04, 2017 [facility] 8:22pm 8:23pm Camron Functional Status No known functional status. Immunizations No known immunizations. Payers Payer Name Policy Type Covered Covered Relationship Subscriber Sub scriber Id Democrat Democrat Id MEDICAID OF Medicaid [facility] [id number] Self/Same as [facility] [id number] [place] Patient SELF PAY Personal [place] [facility] [id number] Self/Same as [facility] [id number] (DO NOT USE) Patient Plan of Care [...]
--- OUTSIDE RECORDS SUMMARY | 2022-07-21 01:15 | XMS_ITS | Continuity of Care Document ---
:1955 Author Organization [facility] Address [address] [place] [address] Care Team Providers Name Role Phone Camron [...] Liver cirrhosis Active Procedures Procedure Date Status MRI Abd w/wo Contrast June 05, [address] Chest w/ Contrast March 07, 2017 completed Chest 2 vw February 27, 2017 completed Relevant Diagnostic Tests and/or Laboratory Data Laboratory Results Test Date/Time Result Interp. Ref. Range Result Comment White Blood Count July 26, 3.89 Low 4.8-10.8 2016 10:04am 1000/mm3 Red Blood Count July 26, 5.22 M/mm3 4.70-6.00 2017 10:04am Hemoglobin July 26, 15.6 g/dL 14.0-18.0 2017 10:04am Hematocrit July 26, 47.8 % 42-52 2016 10:04am Mean Corpuscular July 26, 91.6 fL 80.0-94.0 Volume 2017 10:04am Mean Corpuscular July 26, 29.9 pg 27-31 Hemoglobin 2017 10:04am Mean Corpuscular July 26, 32.6 g/dL Low 33-37 Hemoglobin Concent 2017 10:04am Red Cell Distribution July 26, 15.7 % High 11.5-14.5 Width 2017 10:04am Platelet Count July 26, 82 1000/mm3 Low [phone] 10:04am Mean Platelet Volume July 26, 12.4 fL High 7.4-10.4 2017 10:04am Sodium Level July 26, 141 mmol/L 852-625 3534 10:04am Potassium Level July 26, 3.8 mmol/L 3.6-5.0 2016 10:04am Chloride Level July 26, 105 mmol/L 98-107 2016 10:04am Carbon Dioxide Level July 26, 23 mmol/L -2016 10:04am Anion Gap July 26, 13 7-16 2016 10:04am Blood Urea Nitrogen July 26, 6 mg/dL Low 8-2016 10:04am Creatinine July [...] Test Performed by: Capacity 2016 10:34[place] [address] Orchestra Conductor: James Schreiber MD , Ph D Total Iron Binding March 14, 2017 437 ug/dL 261-462 Capacity 10:30am Total Bilirubin July 26, 1.4 mg/dL High 0.2-1.3 2017 10:04am Aspartate Amino Transf July 26, 150 U/L High 17-59 (AST/SGOT) 2017 10:04am Alanine July 26, 88 U/L High 21-72 Aminotransferase 2017 10:04am (ALT/SGPT) Total Protein July 26, 8.4 g/dL High 6.3-8.2 2017 10:04am Albumin July 26, 3.8 g/dL 3.5-5.0 2016 10:04am Alkaline Phosphatase July 26, 132 U/L High 38-126 2017 10:04am Thyroid Stimulating July 26, 6.02 mlU/L High 0.47-4.68 TSH cascade is Hormone (TSH) 2017 10:04am not recom mended for patients i n which pituitar y or hypothalmic disorders are suspected. Free Thyroxine July 26, 0.99 ng/dL 0.78-2.19 2016 10:04am Ferritin July 26, 52.9 ng/mL 22-322 2016 10:04am Advance Directives Advance Directive Response Recorded Date/Time Do we have a copy [facility] [place] [facility]? No J [facility] 2016 12:14pm Does patient have an Advanced Directive? No January 30, 2012 10:45am Pt has a Living Will? No January 30, 2012 10:45a m Pt has a Power of Chemical Process Analyst? No January 30, 2012 10:45am Hospital Discharge Instructions No known hospital discharge instructions. Hospital Discharge Medications Medication Dose Units Route Sig Qty Days Order Status Instru ctions Date Hydrochlorothiaz 1 cap ORAL DAILY February 28, Active lisseth/Triamter 2011 Pantoprazole 40 mg ORAL TWICE A January 31, Active Ta ke 1 tablet DAY 2015 twice felicita y Phenobarbital 16.2 mg ORAL TWICE A January 31, Disconti nued Take 09/25 DAY 2015 tablet by mouth twic e daily, fir st dose Phenobarbital 32.4 mg ORAL THREE January 31, Active Ta ke 1 tablet TIMES A 2015 by mouth every DAY 8 hours (6 AM, 2PM, 10PM) Phenobarbital 16.2 mg ORAL TWICE A January 31, Active T dixie 09/25 DAY 2015 tablet by mouth twic e daily, fir st dose 10AM Encounters Encounter Facility Location Admit/Visit Discharge/Departure Atte nding Date Date Provider Departed [facility] July 26July 26, 2017 Jane estrella [facility] 2016 7:04pm 7:05pm Camron [facility] June 05June 05, 2017 [facility] 12[facility] 12:45[facility] Departed [facility] June 04June 04, 2017 [facility] 8[facility]22[facility] 8:[facility], 2017 March 14, 2017 [facility], 2017 March 07, [facility] 27, 2017 February 27, 2017 [facility] Registered [facility] November 07 [facility] 7:07pm Camron Functional Status No known functional status. Immunizations No known immunizations. Payers Payer Name Policy Type Covered Covered Relationship Subscriber Sub scriber Id Constitution Party Constitution Party Id MEDICAID OF Medicaid [facility] [id number] Self/Same as [facility] [id number] [place] Patient SELF PAY Personal [place] MED[place] Medicaid [facility] [id number] Self/Same as [facility] [id number] (DO NOT USE) Patient Plan of Care [...]
--- OUTSIDE RECORDS SUMMARY | 2022-07-21 01:15 | XMS_ITS | Continuity of Care Document ---
:1955 Author Organization [facility] Address [address] [place] [address] Care Team Providers Name Role Phone Camron [...] by: Capacity 2016 10:34am [place] [address] Storage Management Architect: James Schreiber MD , Ph D Total [...] have a copy on file [facility]? No J [facility] 2016 12:14pm Does patient have an Advanced Directive? No January 30, 2012 10:45am Pt has a Living Will? No January 30, 2012 10:45a m Pt has a Power of District Ranger? No January 30, 2012 10:45am Hospital Discharge [...] Discharge/Departure Atte nding Date Date Provider Departed [facility] June 04June 04, 2017 [facility] 8:22pm 8:23pm Camron Departed [facility] March 14, 2017 March 14, 2017 8:43pm [facility] 8:42pm Camron [facility] March 07, 2017 March 07, 2017 1:11pm [facility] 1:10pm [facility], 2017 February 27, 2017 12:10pm [facility] 12:09pm [facility] Registered [facility] November 07, [facility] 2016 7:07pm Camron Registered [facility]erred [facility] June 30, [facility] 2015 1:26pm Fannie Registered [facility] June 28, [facility] 2016 7:56pm Camron Morin [facility] June 28, [facility] 2015 12:12pm Fannie Functional Status No known functional status. Immunizations No known immunizations. Payers Payer Name Policy Type Covered Covered Relationship Subscriber Sub scriber Id Republican Republican Id MEDICAID OF Medicaid ED[facility]HR [id number] Self/Same as [facility] [id number] [place] Patient SELF PAY Personal [place] MED[place] Medicaid ED[facility]HR [id number] Self/Same as [facility] [id number] (DO NOT USE) Patient Plan of Care [...]
--- OUTSIDE RECORDS SUMMARY | 2022-07-21 01:15 | XMS_ITS | Continuity of Care Document ---
:1955 Author Organization [facility] Address [address] [place] [address] Care Team Providers Name Role Phone Camron [...] Range Result Comment White Blood Count November 07, 3.65 Low 4.8-10.8 2017 10:34am 1000/mm3 Red Blood Count November 07, 5.10 M/mm3 4.70-6.00 2016 10:34am Hemoglobin November 07, 12.0 g/dL Low 14.0-18.0 2016 10:34am Hematocrit November 07, 39.6 % Low 42-52 2016 10:34am Mean Corpuscular November 07, 77.6 fL Low 80.0-94.0 Volume 2017 10:34am Mean Corpuscular November 07, 23.5 pg Low 27-31 Hemoglobin 2017 10:34am Mean Corpuscular November 07, 30.3 g/dL Low 33-37 Hemoglobin Concent 2016 10:34am Red Cell Distribution November 07, 18.8 % High 11.5-14.5 Width 2016 10:34am Platelet Count November 07, 118 1000/mm3 Low 493-426 3276 10:34am Mean Platelet Volume November 07, 11.9 fL High 7.4-10.4 2016 10:34am Sodium Level November 07, 140 mmol/L 384-168 1760 10:34am Potassium Level November 07, 3.9 mmol/L 3.6-5.0 2016 10:34am Chloride Level November 07, 100 mmol/L 98-107 2016 10:34am Carbon Dioxide Level November 07, 26 mmol/L -2016 10:34am Anion Gap November 07-2016 10:34am Blood Urea Nitrogen November 07, 7 mg/dL Low 8-2016 10:34am Creatinine March 07, 2017 0.7 mg/dL 0.66-1.25 1:40pm Glomerular Filtration March 07, 2017 > 60 mL/min Rate Calc 1:40pm Glucose Level November 07, 96 mg/dL 70-100 2016 10:34am Calcium Level November 07, 8.3 mg/dL Low 8.4-10.2 2016 10:34am Calcium Adjusted for November 07, 8.7 mg/dL 8.4-10.2 Albumin 2016 10:34am Total Iron Binding November 07, 513 ug/dL High 261-462 Test Performed by: Capacity 2016 10:34[place] [address] Quality Assurance Manager: James Schreiber MD , Ph D Total Bilirubin November 07, 2.4 mg/dL High 0.2-1.3 2016 10:34am Aspartate Amino Transf November 07, 158 U/L High 17-59 (AST/SGOT) 2017 10:34am Alanine November 07, 80 U/L High 21-72 Aminotransferase 2016 10:34am (ALT/SGPT) Total Protein November 07, 8.2 g/dL 6.3-8.2 2016 10:34am Albumin November 07, 3.8 g/dL 3.5-5.0 2016 10:34am Alkaline Phosphatase November 07, 105 U/L 38-126 2016 10:34am Thyroid Stimulating November 07, 5.84 mlU/L High 0.47-4.68 TSH cascade is Hormone (TSH) 2016 10:34am not recom mended for patients i n which pituitar y or hypothalmic disorders are suspected. Free Thyroxine November 07, 1.06 ng/dL 0.78-2.19 2016 10:34am Ferritin November 07, 18.9 ng/mL Low 22-322 2016 10:34am Microbiology Results Procedure Source Result Collection Date/Time Result Date/Time Sputum Culture Sputum No results entered June 30, 2016 11:2 1am Gram Stain Sputum No results entered June 30, 2016 11:21a m Advance Directives Advance Directive Response Recorded Date/Time Do we [place] [facility] [place] J 2016 12:14pm Does patient have an Advanced Directive? No January 30, 2012 10:45am Pt has a Living Will? No January 30, 2012 10:45a m Pt has a Power of Language Specialist? No January 30, 2012 10:45am Chief Complaint and Reason for Visit Encounter Admit Date Chief Complaint Reason for Visit Departed Clinical March 07, 2017 1:10pm ABNORMAL FINDINDS R91.8 Hospital Discharge Instructions No known hospital [...] A 2 January 31, Disconti nued Take 1/ DAY [...] Discharge/Departure Atte nding Date Date Provider Departed [facility] March 07, 2017 March 07, 2017 1:11pm [facility] 1:10pm [facility] Departed [facility] February 27, 2017 February 27, 2017 12:10pm [facility] 12:09pm [facility] Registered [facility] November 07, [facility] 2016 7:07pm Camron Registered [facility] Referred Lab June 30, [facility] 2015 1:26pm Fannie Registered [facility] June 28, [facility] 2015 7:56pm Camron Registered [facility] Respiratory June 28, [facility] Therapy 2015 12:12pm Fannie Functional Status No known functional status. Immunizations No known immunizations. Payers Payer Name Policy Type Covered Covered Relationship Subscriber Sub scriber Id Libertarian Libertarian Id MEDICAID OF Medicaid EDWARD HAHR [id number] Self/Same as [facility] [id number] [place] Patient SELF PAY Personal [place] MEDICA[place] Medicaid EDWARD HAHR [id number] Self/Same as [facility] [id number] (DO NOT USE) Patient Plan of Care No Known Plan of Care Information Social History Query Response Date Recorded Comment Alcohol Heavy February 26, 2016 1:28am Living Situation With Family January 30, 2016 9:21am Query Response Start Date Stop Date Smoking Status Former Smoker September 24, 2000 Vital Signs Vital Reading Result Reference Range Collection Date/ Time Height 6 ft January 29, 2016 11:0 7pm Weight n/a Temperature n/a Pulse n/a Respiration n/a Pulse Oximetry n/a Blood Pressure Systolic n/a Blood Pressure Diastolic n/a Body Mass Index n/a
--- OUTSIDE RECORDS SUMMARY | 2022-07-21 01:15 | XMS_ITS | Continuity of Care Document ---
:1955 Author Organization [facility] Address [address] [place] [address] Care Team Providers Name Role Phone Camron [...] Active Take 1 tablet by A DAY 2015 mouth ev jenni 8 hours (6 AM, 2PM, 10PM) Phenobarbital 16.2 MG ORAL TWICE A DAY January 31, Active Take 1/2 tablet 2015 by mouth twice daily, f irst dose [...] 28, 2017 9.3 mg/dL 8.4-10.2 Albumin 10:26am Total Iron Binding March 14, 2017 437 ug/dL 261-462 Capacity 10:30am Transferrin November 28, 2017 258 mg/dL 202-336 Test Perfo rmed by: 10:26[place] [address] Cutting Room Supervisor: James Schreiber MD , Ph D Total [...] 10:45a m Pt has a Power of Personal Shopper? No January 30, 2012 10:45am Chief Complaint and Reason for Visit Encounter Admit Date Chief Complaint Reason for Visit Departed Clinical January 01, 2018 12:11pm xrays Hospital Discharge Instructions No known hospital discharge instructions. Hospital Discharge Medications Medication Dose Units Route Sig Qty Days Order Status Instru ctions Date Hydrochlorothiaz 1 CAP ORAL DAILY February 28, Active lisseth/Triamter 2011 Pantoprazole 40 MG ORAL TWICE A January 31, Active Ta ke 1 tablet DAY 2015 twice felicita y Phenobarbital 16.2 MG ORAL TWICE A 2 January 31, Disconti [...] Discharge/Departure Atte nding Date Date Provider Departed [facility] January 01January 01, 2018 Erick [facility] 2017 12:11pm 12:12pm [facility] November 28, 2017 November 28, 2017 6:39pm [facility] 6:38pm [facility] August 20August 20, 2017 [facility] 12:59pm 1:00pm [facility] July 26July 26, 2017 [facility] 7:04pm 7:05pm [facility] June 05June 05, 2017 [facility] 12:44pm 12:45pm [facility] June 04June 04, 2017 [facility] 8:22pm 8:23pm [facility] March 14, 2017 March 14, 2017 8:43pm [facility] 8:42pm [facility] March 07, 2017 March 07, 2017 1:11pm [facility] 1:10pm [facility] February 27, 2017 February 27, 2017 12:10pm [facility] 12:09pm [facility] Functional Status No known functional status. Immunizations No known immunizations. Payers Payer Name Policy Type Covered Covered Relationship Subscriber Sub scriber Id Green Party Green Party Id MEDICAID OF Medicaid [facility] [id number] Self/Same as [facility] [id number] [place] Patient SELF PAY Personal [place] MED[place] Medicaid [facility] [id number] Self/Same as [facility] [id number] (DO NOT USE) Patient Plan of Care No Known Plan of Care Information Social History Query Response Date Recorded Comment Alcohol Heavy February 26, 2016 1:28am Living Situation With Family January 30, 2016 9:21am Vital Signs No known vital signs results.
--- OUTSIDE RECORDS SUMMARY | 2022-07-21 01:15 | XMS_ITS | Continuity of Care Document ---
:1955 Author Organization [facility] Address [address] [place] [address] Care Team Providers Name Role Phone Camron [...] biceps muscle Inactive Procedures Procedure Date Status CT Chest w/ Contrast April 30, 2018 [...] 2018 9.4 mg/dL 8.4-10.2 Albumin 8:55am Transferrin April 04, 2018 213 mg/dL 202-336 [place] te Methodology in use 01/23/2018 8:55am Test Performed by: THE [address] [place] [address] Total Bilirubin April 04, 2018 2.1 mg/dL [...] a copy on file here at [facility] [place] No J 2016 12:14pm Does patient have an Advanced Directive? No January 30, 2012 10:45am Pt has a Living Will? No January 30, 2012 10:45a m Pt has a Power of Program Technician? No January 30, 2012 10:45am Chief Complaint and Reason for Visit Encounter Admit Date Chief Complaint Reason for Visit Departed Clinical April 30, 2018 2:03pm ANEMIA D64.9 Hospital Discharge Instructions No known hospital [...] Discharge/Departure Atte nding Date Date Provider Departed [facility] April 30April 30, 2018 2:04pm [facility] 2:03[facility] April 04, 2018 April 04, 2018 [facility] March 18, 2018 March 18, 2018 2:41 pm [facility] 2:06pm wAa [facility] January 01January 01, 2018 Erick [facility] 2017 12:11pm 12:12pm [facility] November 28, 2017 November 28, 2017 6:39pm [facility] 6:38pm [facility] August 20August 20, 2017 [facility] 2016 12:59pm 1:00pm [facility] July 26July 26, 2017 [facility] 2016 7:04pm 7:05pm [facility] June 05June 05, 2017 [facility] 2016 12:44pm 12:45pm [facility] June 04June 04, 2017 [facility] 2016 8:22pm 8:23pm [place] Functional Status No known functional status. Immunizations No known immunizations. Payers Payer Name Policy Type Covered Covered Relationship Subscriber Sub scriber Id Republican Republican Id MEDICAID OF Medicaid [facility] [id number] Self/Same as [facility] [id number] [place] Patient SELF PAY Personal [place] MED[place] Medicaid [facility] [id number] Self/Same as [facility] [id number] (DO NOT USE) Patient Plan of Care [...]
--- OUTSIDE RECORDS SUMMARY | 2022-07-21 01:15 | XMS_ITS | Continuity of Care Document ---
:1955 Author Organization [facility] Address [address] [place] [address] Care Team Providers Name Role Phone Camron [...] TAB ORAL THREE TIMES October 01, Active Vvhe-Ecnlicugb-Yhf A DAY 2018 k Thistle [Liver-Kidney Cleanser] Pbnlcwjw-Cxp-Zmoh- 1 TAB ORAL DAILY October 01, Ac [...] per formed or referred by 10:38am The [address] [address] Total Bilirubin October 02, 2019 1.0 mg/dL [...] Date Hydrochlorothiaz 1 CAP ORAL DAILY February 28on tinued lisseth/Triamter 2011 Pantoprazole 40 MG ORAL [...] Active ochlorothiazid 2018 Ca 1 TAB ORAL September Active Htas-Qrndssjnj-B TIMES A 2018 ilk This DAY Kffqsoql-War-Pfn 1 TAB ORAL DAILY September Active n-Folic-Vit K1 2018 Encounters Encounter Facility Location Admit/Visit Discharge/Departure Atte nding Date Date Provider Departed [facility] March 04, 2020 March 04, 2020 6:12pm [facility] 6:11pm [facility] Departed [facility] October 02October 02, 2019 6:07pm [facility] 2019 6:06pm [facility], [facility] May 02, 2019 10:1 6am [facility] 10:15am [facility] Functional Status No known functional status. Immunizations No known immunizations. Payers Payer Name Policy Type Covered Covered Relationship Subscriber Sub scriber Id Constitution Party Constitution Party Id MEDICAID OF Medicaid EDWARD HAHR [id number] Self/Same as [facility] [id number] [place] Patient SELF PAY Personal [place] MEDICA[place] Medicaid [facility] [id number] Self/Same as [facility] [id number] (DO NOT USE) Patient Plan of Care No Known Plan of Care Information Social History No known social history. Vital Signs No known vital signs results.
--- OUTSIDE RECORDS SUMMARY | 2022-07-21 01:15 | XMS_ITS | Continuity of Care Document ---
:1955 Author Organization [facility] Address [address] [place] [address] Care Team Providers Name Role Phone Camron Suarez Primary Care Physician Unavailable Camron Suarez Attending Physician Unavailable Allergies, Adverse Reactions, Alerts [...] TAB ORAL THREE TIMES October 01, Active Veem-Uuenjpapj-Leo A DAY 2018 k Thistle [Liver-Kidney Cleanser] Wltenuaw-Uuw-Zkhc- 1 TAB ORAL DAILY October 01, Ac [...] biceps muscle Inactive Procedures Procedure Date Status EGD BIOPSY SINGLE/MULTIPLE October 01, 2018 active Relevant Diagnostic Tests and/or Laboratory Data Laboratory Results Test Date/Time Result Interp. Ref. Range Result Comment White Blood Count May 02, 2019 4.81 1000/mm3 4.8-10.8 10:15am Red Blood Count May 02, 2019 3.80 M/mm3 Low 4.70-6.00 10:15am Hemoglobin May 02, 2019 8.5 g/dL Low 14.0-18.0 10:15am Hematocrit May 02, 2019 29.7 % Low 42-52 10:15am Mean Corpuscular May 02, 2019 78.2 fL Low 80.0-94.0 Volume 10:15am Mean Corpuscular May 02, 2019 22.4 pg Low 27-31 Hemoglobin 10:15am Mean Corpuscular May 02, 2019 28.6 g/dL Low 33-37 Hemoglobin Concent 10:15am Red Cell Distribution May 02, 2019 22.1 % High 11.5-14.5 Width 10:15am Platelet Count May 02, 2019 143 1000/mm3 140-440 10:15am Mean Platelet Volume May 02, 2019 11.5 fL High 7.4-10.4 10:15am Platelet Estimate December 26, 2018 Adequate 10:27am [...] 2019 9.1 mg/dL 8.4-10.2 Albumin 10:15am Transferrin December 26, 2018 337 mg/dL 201-352 Test perfo rmed or referred by 10:27am The [address] [address] Total Bilirubin May 02, 2019 1.6 mg/dL [...] Ca 1 TAB ORAL THREE September Active Zwns-Krydacdvc-R TIMES A 2018 Ujdwbhjw-Kch-Pkd 1 TAB ORAL DAILY September Active n-Folic-Vit K1 2018 Encounters Encounter Facility Location Admit/Visit Discharge/Departure Atte nding Date Date Provider Departed [facility] May 02, May 02, 2019 Erick [facility] 2018 10:15am 10:16am Camron Departed [facility] December 26, 2018 December 26, 2018 10[facility] Camron Dep[facility]ed [facility] October 08October 08, 2018 [facility] 9:42am 9:43am [facility] 01October 01, 2018 [facility] 2019 9:04am 11:58am [facility] Departed [facility] September 12September 12, 2018 Kash [facility] 2018 12:00am Conversi on rovider Surgery Office Visit Departed [facility] August 20, August 20, 2018 [facility] 7:51pm 7:52pm [facility] July 16July 16, 2018 [facility] 2018 5:32pm 7:02pm Functional Status Query Response Date Recorded Comment Comprehension Ability Understands Concepts October 01, 2018 9:39a m Query Response Date Recorded Comment Living Situation Alone October 01, 2018 9:39am Home Immunizations No known immunizations. Payers Payer Name Policy Type Covered Covered Relationship Subscriber Sub scriber Id Democrat Democrat Id MEDICAID OF Medicaid EDWARD HAHR [id number] Self/Same as [facility] [id number] [place] Patient SELF PAY Personal [place] MEDICA[place] Medicaid [facility] [id number] Self/Same as [facility] [id number] (DO NOT USE) Patient Plan of Care [...] October 01, 2018 11:45am Respiration 18 RPM 12-October 01, 2018 11:45am Pulse Oximetry 97 % 95-100 October 01, 2018 11:45am Blood Pressure Systolic 167 100-140 October 01, 2018 11:45am Blood Pressure Diastolic 87 50-85 October 01, 2018 11:45am Body Mass Index n/a
--- OUTSIDE RECORDS SUMMARY | 2022-07-21 01:15 | XMS_ITS | Continuity of Care Document ---
:1955 Author Organization [facility] Address [address] [place] [address] Care Team Providers Name Role Phone Camron Suarez Primary Care Physician Camron Suarez Attending Physician Allergies, Adverse Reactions, Alerts Allergen Type Severity Reaction Last Updated Verified Status aspirin Allergy bleeding July 16 Active 2017 acetaminophen Adverse Reaction makes sides ache July 16 Active 2017 Medications Active Medications Medication Dose Units Route Sig Qty Start Date Status In structions Triamterene-Hydrochloro July 16, 2018 Active thiazid Discontinued Medications Medication Dose Units Route Sig Qty Start Discontinued Status Instructions Date Date Hydrochlorothi 1 CAP ORAL DAILY FebruaryJuly 16, Disc ontinued azide/Triamter 2017 [HYDR 2011 OCHLOROTHIAZID E/TRIAM 25 mg-37.5 mg] Pantoprazole 40 MG ORAL TWICE 30 JanuaryJuly 16, Discon tinued Take 1 tablet [Protonix] A DAY 2017 twice daily 2016 Phenobarbital 16.2 MG ORAL TWICE 2 JanuaryFebruary [...] Count August 20, 4.14 M/mm3 Low 4.70-6.00 2018 10:00am Hemoglobin August 20, 9.4 g/dL Low 14.0-18.0 2018 10:00am Hematocrit August 20, 32.2 % Low 42-52 2018 10:00am Mean Corpuscular August 20, 77.8 fL Low 80.0-94.0 Volume 2018 10:00am Mean Corpuscular August 20, 22.7 pg Low 27-31 Hemoglobin 2018 10:00am Mean Corpuscular August 20, 29.2 g/dL Low 33-37 Hemoglobin Concent 2018 10:00am Red Cell Distribution August 20, 18.0 % High 11.5-14.5 Width 2017 10:00am Platelet Count August 20, 113 1000/mm3 Low 577-261 2226 10:00am Mean Platelet Volume August 20, 11.0 fL High 7.4-10.4 2017 10:00am Sodium Level August 20, 137 mmol/L 185-095 4683 10:00am Potassium Level August 20, 3.7 mmol/L 3.6-5.0 2017 10:00am Chloride Level August 20, 104 mmol/L 98-107 2017 10:00am Carbon Dioxide Level August 20, 26 mmol/L -2017 10:00am Anion Gap August 20, 7 7-16 2017 10:00am Blood Urea Nitrogen August 20, 9 mg/dL 05-19 10:00am Creatinine August 20, 0.91 mg/dL 0.66-1.25 2017 10:00am Glomerular Filtration August 20, > 60 mL/min 60.0- Rate Calc 2017 10:00am Glucose Level August 20, 99 mg/dL 70-100 2017 10:00am Calcium Level August 20, 8.1 mg/dL Low 8.4-10.2 2017 10:00am Calcium Adjusted for August 20, 9.1 mg/dL 8.4-10.2 Albumin 2018 10:00am Transferrin April 04, 2018 213 mg/dL 202-336 [facility] Methodology in use 01/23/2018 8:55am Test Performed by: THE [address], [place] [address] Total Bilirubin August 20, 1.2 mg/dL 0.2-1.3 2018 10:00am Aspartate Amino Transf August 20, 69 U/L High 17-59 (AST/SGOT) 2018 10:00am Alanine August 20, 46 U/L 21-72 Aminotransferase 2018 10:00am (ALT/SGPT) Total Protein August 20, 7.3 g/dL 6.3-8.2 2018 10:00am Albumin August 20, 3.1 g/dL Low 3.5-5.0 2018 10:00am Alkaline Phosphatase August 20, 124 U/L 38-126 2018 10:00am Thyroid Stimulating August 20, 6.50 mlU/L High 0.47-4.68 TSH cascade is Hormone (TSH) 2018 10:00am not recom mended for patients i n which pituitar y or hypothalmic disorders are suspected. Free Thyroxine August 20, 1.14 ng/dL 0.78-2.19 2018 10:00am Hemoglobin A1c Percent August 20, 5.06 [...] a [place] [facility] J kemal 2016 12:14pm Does patient have an Advanced Directive? No January 30, 2012 10:45am Pt has a Living Will? No January 30, 2012 10:45a m Pt has a Power of Line Installer Trolley? No January 30, 2012 10:45am Hospital Discharge [...] twic e daily, fir st dose 10AM Triamterene-Hydr June ochlorothiazid 2017 Encounters Encounter Facility Location Admit/Visit Discharge/Departure Atte nding Date Date Provider Departed [facility] August 20August 20, 2018 Josee [facility] 2017 7:51pm 7:[facility]pm [facility] July 16July 16, 2018 [facility] 2017 5:32pm 7:02pm [facility] April 30April 30, 2018 2:04pm [facility] 2:03[facility] April 04, 2018 April 04, 2018 7:03pm [facility] 7:02pm Camron [facility] March 18, 2018 March 18, 2018 2:41 pm [facility] 2:06pm [facility] January 01January 01, 2018 [facility] 2017 12:11pm 12:12pm [facility] November 28, 2017 November 28, 2017 6:39pm [facility] 6:38pm Camron Functional Status No known functional status. Immunizations No known immunizations. Payers Payer Name Policy Type Covered Covered Relationship Subscriber Sub scriber Id Alliance Party Alliance Party Id MEDICAID OF Medicaid [facility] [id number] Self/Same as [facility] [id number] [place] Patient SELF PAY Personal [place] MED[place] [facility] [id number] Self/Same as [facility] [id number] (DO NOT USE) Patient Plan of Care No Known Plan of Care Information Social History Query Response Date Recorded Comment Alcohol Heavy February 26, 2016 1:28am Living Situation With Family January 30, 2016 9:21am Query Response Start Date Stop Date Smoking Status Never smoker September 24, 2000 Vital Signs Vital Reading Result Reference Range Collection Date/ Time Height n/a Weight 97.522 kg July 16, 2018 5:41pm Temperature 98.1 F 97.6 F-99.6 F July 16, 2018 5:41pm Pulse 81 BPM 60-100 July 16, 2018 5:41pm Respiration 18 RPM 12-24 July 16, 2018 5:41pm Pulse Oximetry 98 % 95-100 July 16, 2018 5:41pm Blood Pressure Systolic 130 100-140 July 16, 2018 5:41pm Blood Pressure Diastolic 76 50-85 July 16, 2018 5:41pm Body Mass Index n/a
--- OUTSIDE RECORDS SUMMARY | 2022-07-21 01:15 | XMS_ITS | Continuity of Care Document ---
:1955 Author Organization [facility] Address [address] [place] [address] Care Team Providers Name Role Phone Camron [...] 14, 2017 8 mg/dL 8-26 10:30am Creatinine March 14, 2017 0.8 mg/dL 0.66-1.25 10:30am Glomerular Filtration March 14, 2017 > 60 mL/min Rate Calc 10:30am Glucose Level March 14, 2017 70 mg/dL 70-100 10:30am Calcium Level March 14, 2017 8.5 mg/dL 8.4-10.2 10:30am Calcium Adjusted for March 14, 2017 9.1 mg/dL 8.4-10.2 Albumin 10:30am Total Iron Binding November 07, 513 ug/dL High 261-462 Test Performed by: Capacity 2016 10:34am [place] [address] Director Broadcast: James Schreiber MD , Ph D Total [...] have [place] [facility] J [facility] 2016 12:14pm Does patient have an Advanced Directive? No January 30, 2012 10:45am Pt has a Living Will? No January 30, 2012 10:45a m Pt has a Power of Baggage Clerk? No January 30, 2012 10:45am Hospital Discharge [...] Discharge/Departure Atte nding Date Date Provider Departed [facility] March 14, 2017 March 14, 2017 8:43pm [facility], [facility] March 07, 2017 1:11pm [facility] 1:10pm [facility] 27, 2017 February 27, 2017 12:10pm [facility] 12:09pm [facility] Registered [facility] November 07, [facility] 2016 7:07pm Camron Registered [facility] Referred Lab June 30, [facility] 2015 1:26pm Fannie Registered [facility] June 28, [facility] 2015 7:56pm Camron Registered [facility] Respiratory June 28, [facility] Therapy 2015 12:12pm Fannie Functional Status No known functional status. Immunizations No known immunizations. Payers Payer Name Policy Type Covered Covered Relationship Subscriber Sub scriber Id Republican Republican Id MEDICAID OF Medicaid EDWARD HAHR [id number] Self/Same as [facility] [id number] [place] Patient SELF PAY Personal [place] MED[place] Medicaid EDWARD HAHR [id number] Self/Same as [facility] [id number] (DO NOT USE) Patient Plan of Care [...]
--- OUTSIDE RECORDS SUMMARY | 2022-07-21 01:15 | XMS_ITS | Continuity of Care Document ---
:1955 Author Organization [facility] Address [address] [place] [address] Care Team Providers Name Role Phone Camron [...] Platelet Count July 26, 82 1000/mm3 Low [phone] 10:04am Mean Platelet Volume July 26, 12.4 fL High 7.4-10.4 2017 10:04am Sodium Level July 26, 141 mmol/L [phone] 10:04am Potassium Level July 26, 3.8 mmol/L [...] Test Performed by: Capacity 2016 10:34[place] [address] Heel Attacher Wood: James Schreiber MD , Ph D Total [...] have a [place] [facility] [facility] 2016 12:14pm Does patient have an Advanced Directive? No January 30, 2012 10:45am Pt has a Living Will? No January 30, 2012 10:45a m Pt has a Power of Tattoo Identifier? No January 30, 2012 10:45am Hospital Discharge [...] Discharge/Departure Atte nding Date Date Provider Departed [facility] July 26July 26, 2017 Jane estrella [facility] 2016 7:04pm 7:05pm Camron [facility] June 05June 05, 2017 [facility] 2016 12:44pm 12:45pm [facility] Departed [facility] June 04June 04, 2017 [facility] 8:22pm 8:23pm [facility] 14, 2017 March 14, 2017 [facility] 07, 2017 March 07, 2017 [facility], 2017 February 27, 2017 12:10pm [facility] 12:09pm [facility] Registered [facility] 07 [facility] 2016 7:07pm Camron Functional Status No known functional status. Immunizations No known immunizations. Payers Payer Name Policy Type Covered Covered Relationship Subscriber Sub scriber Id Democrat Democrat Id MEDICAID OF Medicaid [facility] [id number] Self/Same as [facility] [id number] [place] Patient SELF PAY Personal [place] MED[place] Medicaid [facility] [id number] Self/Same as [facility] [id number] (DO NOT USE) Patient Plan of Care [...]
--- OUTSIDE RECORDS SUMMARY | 2022-07-21 01:15 | XMS_ITS | Continuity of Care Document ---
:1955 Author Organization [facility] Address [address] [place] [address] Care Team Providers Name Role Phone Camron [...] TAB ORAL THREE TIMES October 01, Active Muqm-Pvnokqsip-Qnk A DAY 2018 k Thistle [Liver-Kidney Cleanser] Bcatyqgt-Jxt-Zqgm- 1 TAB ORAL DAILY October 01, Ac [...] Ref. Range Result Comment White Blood Count 3.87 1000/mm3 Low 4.8-10.8 Red Blood Count 5.10 M/mm3 4.70-6.00 Hemoglobin 11.7 g/dL Low 14.0-18.0 Hematocrit 39.6 % Low 42-52 Mean Corpuscular Volume 77.6 fL Low 80.0-94.0 Mean Corpuscular 22.9 pg Low 27-31 Hemoglobin Mean Corpuscular 29.5 g/dL Low 33-37 Hemoglobin Concent Red Cell Distribution 24.9 % High 11.5-14.5 Width Platelet Count 101 1000/mm3 Low 140-440 Mean Platelet Volume 10.0 fL 7.4-10.4 Neutrophils (%) (Auto) 52.9 % 40.0-72.0 Lymphocytes (%) (Auto) 22.5 % 17-45 Monocytes (%) (Auto) 17.2 % High 3-11 Eosinophils (%) (Auto) 5.1 % High 0-3 Basophils (%) (Auto) 2.0 % High 0-1 Immature Granulocyte % 0.3 % 0-1 (Auto) Neutrophils # (Auto) 1.88 1000/mm3 1.4-6.5 Lymphocytes # (Auto) 0.80 1000/mm3 Low 1.2-3.4 Monocytes # (Auto) 0.61 1000/mm3 0.0-0.8 Eosinophils # (Auto) 0.18 1000/mm3 0.0-0.7 Basophils # (Auto) 0.07 1000/mm3 0.0-0.1 Absolute Immature 0.0 0-1 Granulocyte (auto Differential Method Automated Platelet Estimate Adequate Target Cells 2+ Prothrombin Time 12.1 SECONDS High 9.6-11.2 Prothromb Time 1.2 Low 2.0-3.0 INR value valid International Ratio only on patients on stabilized warfarin thera py. The recommende d therapeutic ra nge for warfarin (Coumadin) for most clinical indications is an INR of 2.0-3.0 . An INR of 2.5-3.5 is recommended fo r patients with mechanical hea rt valves. Sodium Level 136 mmol/L Low 137-145 Potassium Level 3.5 mmol/L Low 3.6-5.0 Chloride Level 103 mmol/L 98-107 Carbon Dioxide Level 27 mmol/L 22-30 Anion Gap 6 Low 7-16 Blood Urea Nitrogen 7 mg/dL Low 8-26 Creatinine 0.77 mg/dL 0.66-1.25 Glomerular Filtration > 60 mL/min 60.0- Rate Calc Glucose Level 108 mg/dL High 70-100 Calcium Level 8.9 mg/dL 8.4-10.2 Calcium Adjusted for 9.5 mg/dL 8.4-10.2 Albumin Transferrin 337 mg/dL 201-352 Test performe d or referred by The [address] [address] Total Bilirubin 2.2 mg/dL High 0.2-1.3 Aspartate Amino Transf 71 U/L High 17-59 (AST/SGOT) Alanine Aminotransferase 37 U/L 21-72 (ALT/SGPT) Total Protein 8.3 g/dL High 6.3-8.2 Albumin 3.6 g/dL 3.5-5.0 Cholesterol Level 110 mg/dL 59-199 HDL Cholesterol 46 mg/dL 40-60 The Nat nal Cholesterol Education Program (NCEP) has set the following guidelines (reference values) for cholesterol, HDL: Low HDL: <40 m g/dL Normal: 40-60 mg/dL Desirable: >60 mg/dL LDL Cholesterol 50.0 mg/dL 0-129 VLDL Cholesterol 14.0 mg/dL 0-32 Cholesterol/HDL Ratio 2.39 0-3.9 Triglycerides Level 70 mg/dL 0-149 Alkaline Phosphatase 122 U/L 38-126 Thyroid Stimulating 7.81 mlU/L High 0.47-4.68 TSH c ascade is not Hormone (TSH) recommended for patients in ich pituitary or hypothalmic disorders are suspected. Free Thyroxine 1.12 ng/dL 0.78-2.19 Hemoglobin A1c Percent 5.43 % <5 .7%: Normal 5.7%-6.4%: Pre diabetes >=6.5%: Diagno stic for [...] be achieved without excessive hypoglycemia. Estimated Average 109 mg/dL Glucose mg/dL Ferritin 10.9 ng/mL Low 22-322 The results of this assay can be falsely decrea sed in patients o consume Biotin . Advance Directives Advance Directive Response Recorded Date/Time Do we have a copy on file here at [facility]? No J [facility] 2016 12:14pm Does patient have an Advanced Directive? No January 30, 2012 10:45am Pt has a Living Will? No January 30, 2012 10:45a m Pt has a Power of Whirley Operator? No January 30, 2012 10:45am Hospital Discharge [...] 2018 Ca 1 TAB ORAL September Active Sbev-Zhfaarshw-F TIMES A 2018 ilk Thistle DAY Hbcqrqbo-Upt-Xlm 1 TAB ORAL DAILY September n-Folic-Vit K1 2018 Encounters Encounter Facility Location Admit/Visit Discharge/Departure Atte nding Date Date Provider Departed [facility] October 02October 02, 2019 [facility] 02, [facility] 2019 May 02, 2019 10[facility]1 6[facility] Dep[facility] December 26, 2018 December 26, 2018 10:28a m [facility] October 08October 08, 2018 [facility] 2018 9:42am 9:43am [facility] Functional Status No known functional status. Immunizations No known immunizations. Payers Payer Name Policy Type Covered Covered Relationship Subscriber Sub scriber Id Democrat Democrat Id MEDICAID OF Medicaid [facility] [id number] Self/Same as [facility] [id number] [place] Patient SELF PAY Personal [place] MED[place] Medicaid EDWARD HAHR [id number] Self/Same as [facility] [id number] (DO NOT USE) Patient Plan of Care No Known Plan of Care Information Social History Query Response Date Recorded Comment Alcohol Heavy February 26, 2016 1:28am Alcohol Use Yes October 01, 2018 9:39am two shots of liquir daily Living Situation With Family January 30, 2016 9:21am Smoking Status Former smoker October 01, 2018 9:39am Substance/Street Drug No October 01, 2018 9:39am Use alcohol intake 0-2 drinks per day March 18, 2018 2:18pm frequency Query Response Start Date Stop Date Smoking Status Former smoker September 24, 1987 September 24, 2000 Vital Signs No known vital signs results.
--- OUTSIDE RECORDS SUMMARY | 2022-07-21 01:15 | XMS_ITS | Continuity of Care Document ---
:[address] [facility] Address [address] [place] [address] Care Team Providers Name Role Phone Camron Suarez Primary Care Physician Unavailable Camron Suarez Attending Physician Unavailable Allergies, Adverse Reactions, Alerts Allergen Type Severity Reaction Last Updated Verified Status aspirin Allergy bleeding October 01 Active 2018 acetaminophen Adverse Reaction makes sides ache October 01 Active 2019 Medications Active Medications Medication Dose Units Route Sig Qty Start Date Status In structions Ferrous Sulfate 325 MG ORAL DAILY October 01, Activ e 2018 Triamterene-Hydroc 1 TAB ORAL DAILY October 01, Ac tive hlorothiazid 2018 Ca 1 TAB ORAL THREE TIMES October 01, Active Ugyq-Ajejtxilz-Wky A DAY 2018 k Thistle [Liver-Kidney Cleanser] Gelbyxrg-Tza-Wpoc- 1 TAB ORAL DAILY October 01, Ac [...] EGD BIOPSY SINGLE/MULTIPLE October 01, [address] Chest w/ Contrast April 30, 2018 completed Import Outside CD April 05, 2018 active Hip 2 vw Min RT January 01, 2018 completed Relevant Diagnostic Tests and/or Laboratory Data Laboratory Results Test Date/Time Result Interp. Ref. Range Result Comment White Blood Count December 26, 2018 4.01 1000/mm3 Low 4.8-10.8 10:27am Red Blood Count December 26, 2018 4.29 M/mm3 Low 4.70-6.00 10:27am Hemoglobin December 26, 2018 8.9 g/dL Low 14.0-18.0 10:27am Hematocrit December 26, 2018 32.0 % Low 42-52 10:27am Mean Corpuscular December 26, 2018 74.6 fL Low 80.0-94.0 Resul t confirmed Volume 10:27am by repeat analysis. Mean Corpuscular December 26, 2018 20.7 pg Low 27-31 Resul t confirmed by repeat analysis. Hemoglobin 10:27am --- 12/26/18 2 025 --- [facility] previously reported as: 20.7 L pg Mean Corpuscular December 26, 2018 27.8 g/dL Low 33-37 Hemoglobin Concent 10:27am Red Cell Distribution December 26, 2018 18.4 % High 11.5-14.5 Width 10:27am Platelet Count December 26, 2018 107 1000/mm3 Low 140-440 10:27am Mean Platelet Volume December 26, 2018 10.9 fL High 7.4-10.4 10:27am Platelet Estimate December 26, 2018 Adequate 10:27am Target Cells December 26, 2018 2+ 10:27am Sodium Level December 26, 2018 136 mmol/L Low 137-145 10:27am Potassium Level December 26, 2018 4.1 mmol/L 3.6-5.0 10:27am Chloride Level December 26, 2018 101 mmol/L 98-107 10:27am Carbon Dioxide Level December 26, 2018 28 mmol/L 22-30 10:27am Anion Gap December 26, 2018 7 7-16 10:27am Blood Urea Nitrogen December 26, 2018 10 mg/dL 8-26 10:27am Creatinine December 26, 2018 0.73 mg/dL 0.66-1.25 10:27am Glomerular Filtration December 26, 2018 > 60 mL/min 60.0- Rate Calc 10:27am Glucose Level December 26, 2018 103 mg/dL High 70-100 10:27am Calcium Level December 26, 2018 8.8 mg/dL 8.4-10.2 10:27am Calcium Adjusted for December 26, 2018 9.6 mg/dL 8.4-10.2 Albumin 10:27am Transferrin August 20, 301 mg/dL 201-352 Test Perfor med by: 2018 10:00am THE [address] [address] Total Bilirubin December 26, 2018 1.4 mg/dL High 0.2-1.3 10:27am Aspartate Amino Transf December 26, 2018 72 U/L High 17-59 (AST/SGOT) 10:27am Alanine December 26, 2018 40 U/L 21-72 Aminotransferase 10:27am (ALT/SGPT) Total Protein December 26, 2018 8.0 g/dL 6.3-8.2 10:27am Albumin December 26, 2018 3.3 g/dL Low 3.5-5.0 10:27am Cholesterol Level October 08, 110 mg/dL 59-199 [...] 70 mg/dL 0-149 2018 9:42am Alkaline Phosphatase December 26, 2018 145 U/L High 38-126 10:27am Thyroid Stimulating December 26, 2018 5.63 mlU/L High 0.47-4.68 TS H cascade is Hormone (TSH) 10:27am not recomme nded for patients i n which pituitar y or hypothalmic disorders are suspected. Free Thyroxine December 26, 2018 0.96 ng/dL 0.78-2.19 10:27am Hemoglobin A1c Percent December 26, 2018 5.43 % <5.7%: Normal 10:27am 5.7%-6.4%: Pre diabetes >=6.5%: Diagno stic for [...] be achieved without excessive hypoglycemia. Estimated Average December 26, 2018 109 mg/dL Glucose mg/dL 10:27am Ferritin December 26, 2018 10.9 ng/mL Low 22-322 The results of 10:27am this assay can be falsely decreased in [...] TWICE A January 31, Disconti nued Take 12 DAY 2015 tablet by mouth twic e [...] Ca 1 TAB ORAL THREE September Active Grhh-Noncadfkm-Q TIMES A 2018 DAY Myogyoip-Yew-Msm 1 TAB ORAL DAILY September Active n-Folic-Vit K1 2018 Encounters Encounter Facility Location Admit/Visit Discharge/Departure Atte nding Date Date Provider Departed [facility] December 26, 2018 December 26, 2018 10:28a [facility] 10[facility]27[facility] Camron Departed [facility] October 08, October 08, 2018 [facility] 9:42am 9:43am [facility] October 01October 01, 2018 [facility] Surgical Day [facility] 2018 9:04am 11:58am [facility] 20August 20, 2018 [facility] 7:51pm 7:52pm [facility] July 16July 16, 2018 [facility] Department 2017 5:32pm 7:02pm [facility] April 30April 30, 2018 2:04pm [facility] 2:03pm [facility] April 04, 2018 April 04, 2018 7[facility]03[facility]02pm [facility] March 18, 2018 March 18, 2018 2:41 pm [facility] 2:06pm Awa [facility] January 01January 01, 2018 [facility] 2017 12:11pm 12:12pm [facility] Functional Status No known functional status. Immunizations No known immunizations. Payers Payer Name Policy Type Covered Covered Relationship Subscriber Sub scriber Id Green Party Green Party Id MEDICAID OF Medicaid [facility] [id number] Self/Same as [facility] [id number] [place] Patient SELF PAY Personal [place] [facility] [id number] Self/Same as [facility] [id number] (DO NOT USE) Patient Plan of Care [...] October 01, 2018 11:45am Respiration 18 RPM -October 01, 2018 11:45am Pulse Oximetry 97 % 95-100 October 01, 2018 11:45am Blood Pressure Systolic 167 100-140 October 01, 2018 11:45am Blood Pressure Diastolic 87 50-85 October 01, 2018 11:45am Body Mass Index n/a
--- OUTSIDE RECORDS SUMMARY | 2022-07-21 01:16 | XMS_ITS | Continuity of Care Document ---
:1955 Author Organization [facility] Address [address] [place] [address] Care Team Providers Name Role Phone Camron [...] Test Perform ed by: 2016 10:04[place] [address] Soccer Ball Assembler: James Schreiber MD , Ph D Total [...] [place] a [place] [facility] [place] J 2016 12:14pm Does patient have an Advanced Directive? No January 30, 2012 10:45am Pt has a Living Will? No January 30, 2012 10:45a m Pt has a Power of Medical Practice Manager? No January 30, 2012 10:45am Hospital Discharge [...] 10PM) Phenobarbital 16.2 MG ORAL TWICE A 2 January 31, Active T dixie 2015 tablet by mouth twic e daily, fir st dose 10AM Encounters Encounter Facility Location Admit/Visit Discharge/Departure Atte nding Date Date Provider Departed [facility] November 28, 2017 November 28, 2017 6:39pm [facility] 6:38pm [facility] August 20August 20, 2017 [facility] 2016 12:59pm 1:00pm [facility] July 26July 26, 2017 Jane [facility] 2016 7:04pm 7:05pm [facility] June 05June 05, 2017 [facility] 2016 12:44pm 12:45pm [facility] June 04June 04, 2017 Radu [facility]nerFormerly [facility] 2016 8:22pm 8:23pm [facility] March 14, 2017 March 14, 2017 8:43pm [facility] 8:42pm [facility] March 07, 2017 March 07, 2017 1:11pm [facility] 1:10pm [facility] February 27, 2017 February 27, 2017 12:10pm [facility] 12:09pm [facility] Functional Status No known functional status. Immunizations No known immunizations. Payers Payer Name Policy Type Covered Covered Relationship Subscriber Sub scriber Id Green Party Green Party Id MEDICAID OF Medicaid [facility] [id number] Self/Same as [facility] [id number] [place] Patient SELF PAY Personal [place] [facility] [id number] Self/Same as [facility] [id number] (DO NOT USE) Patient Plan of Care No Known Plan of Care Information Social History Query Response Date Recorded Comment Alcohol Heavy February 26, 2016 1:28am Living Situation With Family January 30, 2016 9:21am Vital Signs No known vital signs results.
--- OUTSIDE RECORDS SUMMARY | 2022-07-21 01:16 | XMS_ITS | Continuity of Care Document ---
:1955 Author Organization [facility] Address [address] [place] [address] Phone Care Team Providers Name Role Phone Camron Suarez Primary Care Provider Unavailable Camron Suarez Primary Care Provider Unavailable Camron Suarez Attending Provider Unavailable Camron Suarez Primary Care Provider Unavailable Mindy Ramirez Attending Provider Unavailable Camron Suarez Primary Care Provider Unavailable Camron Suarez Attending Provider Unavailable Enoc Suarezick Jayden Primary Care Provider Unavailable Enoc Suarezick Jayden Attending Provider Unavailable Erick Camron Jayden Primary Care Provider Unavailable Enoc Suarezick aJyden Attending Provider Unavailable Camron Suarez Primary Care Provider Unavailable Mehdi London Attending Provider Unavailable Allergies, Adverse Reactions, Alerts Allergen Type Severity Reaction Last Updated Verified Status aspirin Adverse Unknown bleeding September 03, Yes Activ e Reaction 2014 ibuprofen Adverse Unknown flank pain June 21, Yes Act vamshi Reaction 2015 acetaminophen Adverse makes sides October 01, Yes A ctive Reaction ache 2018 Medications Medication Status Dose Units Route Sig Qty Days Start Date End Ins tructions Date Ferrous Active 325 MG ORAL DAILY September Sulfate 2018 9:27am Triamterene-Hy Active 1 TAB ORAL DAILY September drochlorothiaz 2018 id 9:27am Ca Active 1 TAB ORAL THREE September Phos-Cranberry TIMES A 2018 -Milk Thistle DAY 9:27am Lxkoimqe-Bkh-H Active 1 TAB ORAL DAILY September wwt-Tzhdp-Rzl 2018 K1 9:27am Problems Active Problems Medical Problem Onset Date Status Alcohol abuse Active Cough June 21, 2016 Active Difficulty breathing June 21, 2016 Active Liver cirrhosis Active Sprain of shoulder and upper arm March 21, 2018 Active Chronic obstructive pulmonary disease June 21, 2016 A ctive Acute GI bleeding Active Hematemesis September 12, 2018 Active Anemia due to chronic blood loss September 03, 2015 Active Gastroesophageal reflux disease September 12, 2018 Active Hypertension Active Arthralgia of right upper arm March 21, 2018 Active Inactive/Resolved Problems Medical Problem Onset Date Status Tear of right biceps muscle Resolved Procedures Procedure Date Performed Status EGD w Biopsy OPD (Not Applicable) October 01, 2018 10:30am completed Relevant Diagnostic Tests and/or Laboratory Data Laboratory Results Test Date/Time Result Interpretation Reference Result Comment Performing Range Site White Blood July 4.28 4.8-10.8 MAIN LAB , [address] [place] [address] Street [facility] 2017 1000/mm3 10:00am [place] [address] White Blood September 3.87 4.8-10.8 MAIN LAB , [address] [place] [address] 2018 1000/mm3 9:42am [place] [address] White Blood December 26, 4.01 4.8-10.8 MAIN LA B, [address] [place] [address] 2018 1000/mm3 10:27am [place] [address] White Blood April 4.81 4.8-10.8 MAIN LAB , [address] [place] [address] 2018 1000/mm3 10:15am [place] [address] White Blood June 3.55 4.8-10.8 MAIN LAB , [address] [place] [address] 2018 1000/mm3 10:55am [place] [address] Red Blood July 4.14 M/mm3 4.70-6.00 MAIN LAB, [address] [place] [address] Street Count 2017 10:00am [place] [address] Red Blood September 5.10 M/mm3 4.70-6.00 MAIN LAB, [address] [place] [address] Street [facility] 2018 9:42am [place] [address] Red Blood December 26, 4.29 M/mm3 4.70-6.00 MAIN LAB , [address] [place] [address] 2018 10:27am [place] [address] Red Blood April 3.80 M/mm3 4.70-6.00 MAIN LAB, [address] [place] [address] Street [facility] 2018 10:15am [place] [address] Red Blood June 4.66 M/mm3 4.70-6.00 MAIN LAB, [address] [place] [address] Count 2018 10:55am [place] [address] Hemoglobin July 9.4 g/dL 14.0-18.0 MAIN LAB, [address] [place] [address] 2017 10:00am [place] [address] Hemoglobin September 11.7 g/dL 14.0-18.0 MAIN LAB, [address] [place] [address] 2018 9:42am [place] [address] Hemoglobin December 26, 8.9 g/dL 14.0-18.0 MAIN LAB , [address] [place] [address] 2018 10:27am [place] [address] Hemoglobin April 8.5 g/dL 14.0-18.0 MAIN LAB, [address] [place] [address] 2018 10:15am [place] [address] Hemoglobin June 9.0 g/dL 14.0-18.0 MAIN LAB, [address] [place] [address] 2018 10:55am [place] [address] Hematocrit July 32.2 % 42-52 MAIN LAB, [address] [place] [address] 2017 10:00am [place] [address] Hematocrit September 39.6 % 42-52 MAIN LAB, [address] [place] [address] 2018 9:42am [place] [address] Hematocrit December 26, 32.0 % 42-52 MAIN LAB , [address] [place] [address] 2018 10:27am [place] [address] Hematocrit April 29.7 % 42-52 MAIN LAB, [address] [place] [address] 2018 10:15am [place] [address] Hematocrit June 32.7 % 42-52 MAIN LAB, [address] [place] [address] 2018 10:55am [place] [address] Mean July 77.8 fL 80.0-94.0 MAIN LAB, [address] [place] [address] Corpuscular 2017 Volume 10:00am [place] [address] Mean September 77.6 fL 80.0-94.0 MAIN LAB, [address] [place] [address] Corpuscular 2018 Volume 9:42am [place] [address] Mean December 26, 74.6 fL 80.0-94.0 Result MAIN LAB, [address] [place] [address] Corpuscula 2018 confirmed by Volume 10:27am [place] [address] analysis. Mean April 78.2 fL 80.0-94.0 MAIN LAB, [address] [place] [address] Corpuscular 2018 Volume 10:15am [place] [address] Mean June 70.2 fL 80.0-94.0 MAIN LAB, [address] [place], [place] [address]cular 2018 Volume 10:55am [place] [address] Mean July 22.7 pg - MAIN LAB, [address] [place] [address] Corpuscular 2017 Hemoglobin 10:00[place] [address] Mean September 22.9 pg 27-31 MAIN LAB, [address] [place] [address] Corpuscular 2018 Hemoglobin 9:42[place] [address] Mean December 26, 20.7 pg 27-31 Result MAIN LAB, [address] [place], [place] [address]r 2018 confirmed by Hemoglobin 10:27[place] [address] analysis. --- 12/26/182024 ---[facility] previously reported as: 20.7 L pg Mean April 22.4 pg - MAIN LAB, [address] [place] [address] Corpuscular 2018 Hemoglobin 10:15am [place] [address] Mean June 19.3 pg - MAIN LAB, [address] [place] [address] Corpuscular 2018 Hemoglobin 10:55[place] [address] Mean July 29.2 g/dL 37 MAIN LAB, [address] [place], [place] [address]cular 2017 Hemoglobin 10:00[place] [address] Concent Mean September 29.5 g/dL MAIN LAB, [address] [place] [address] Corpuscular 2018 Hemoglobin 9:42[place] [address] Concent Mean December 26, 27.8 g/dL - MAIN LAB, [address] [place], [place] [address]lar 2018 Hemoglobin 10:27[place] [address] Concent Mean April 28.6 g/dL - MAIN LAB, [address] [place] [address] Corpuscular 2018 Hemoglobin 10:15[place] [address] Concent Mean June 27.5 g/dL MAIN LAB, [address] [place] [address] Corpuscular 2018 Hemoglobin 10:55[place] [address] Concent Red Cell July 18.0 % 11.5-14.5 MAIN LAB, [address] Distribution 2017 Width 10:00am [place] [address] Red Cell September 24.9 % 11.5-14.5 MAIN LAB, [address] Distribution 2018 Width 9:42am [place] [address] Red Cell December 26, 18.4 % 11.5-14.5 MAIN LAB, [address] Distribution 2018 Width 10:27am [place] [address] Red Cell April 22.1 % 11.5-14.5 MAIN LAB, [address] Distribution 2018 Width 10:15am [place] [address] Red Cell June 21.7 % 11.5-14.5 MAIN LAB, [address] Distribution 2018 Width 10:55am [place] [address] Platelet July 113 140-440 MAIN LAB, [address] [place] [address] Street Count 2017 1000/mm3 10:00am [place] [address] Platelet September 101 140-440 MAIN LAB, [address] Count 2018 1000/mm3 9:42am [place] [address] Platelet December 26, 107 140-440 MAIN LAB, [address] Count 2018 1000/mm3 10:27am [place] [address] Platelet April 143 140-440 MAIN LAB, [address] [place] [address] Street Count 2018 1000/mm3 10:15am [place] [address] Platelet June 104 140-440 MAIN LAB, [address] Count 2018 1000/mm3 10:55am [place] [address] Mean Platelet July 11.0 fL 7.4-10.4 MAIN L AB, [address] Volume 2017 10:00am [place] [address] Mean Platelet September 10.0 fL 7.4-10.4 MAIN L AB, [address] Volume 2018 9:42am [place] [address] Mean Platelet December 26, 10.9 fL 7.4-10.4 MAIN LAB, [address] Volume 2018 10:27am [place] [address] Mean Platelet April 11.5 fL 7.4-10.4 MAIN L AB, [address] Volume 2018 10:15am [place] [address] Mean Platelet June 10.4 fL 7.4-10.4 MAIN L AB, [address] [place] [address] Volume 2018 10:55am [place] [address] Neutrophils June 52.9 % 40.0-72.0 MAIN LAB , [address] [place] [address] (%) (Auto) 2018 10:55am [place] [address] Lymphocytes June 22.5 % 17-45 MAIN LAB , [address] [place] [address] (%) (Auto) 2018 10:55am [place] [address] Monocytes (%) June 17.2 % 3-11 MAIN L AB, [address] [place] [address] (Auto) 2018 10:55am [place] [address] Eosinophils June 5.1 % 0-3 MAIN LAB , [address] [place] [address] (%) (Auto) 2018 10:55am [place] [address] Basophils (%) June 2.0 % 0-1 MAIN L AB, [address] [place] [address] (Auto) 2018 10:55am [place] [address] Immature October 0.3 % 0-1 MAIN LAB, [address] [place] [address] Granulocyte % 2018 (Auto) 10:55am [place] [address] Neutrophils # June 1.88 1.4-6.5 MAIN L AB, [address] [place] [address] (Auto) 2018 1000/mm3 10:55am [place] [address] Lymphocytes # June 0.80 1.2-3.4 MAIN L AB, [address] [place] [address] (Auto) 2018 1000/mm3 10:55am [place] [address] Monocytes # June 0.61 0.0-0.8 MAIN LAB , [address] [place] [address] (Auto) 2018 1000/mm3 10:55am [place] [address] Eosinophils # June 0.18 0.0-0.7 MAIN L AB, [address] [place] [address] (Auto) 2018 1000/mm3 10:55am [place] [address] Basophils # June 0.07 0.0-0.1 MAIN LAB , [address] [place] [address] (Auto) 2018 1000/mm3 10:55am [place] [address] Absolute October 0.0 0-1 MAIN LAB, [address] [place] [address] Immature 2018 Granulocyte 10:55[place] [address] (auto Differential June Automated MAIN LA B, [address] [place] [address] Method 2018 10:55am [place] [address] Platelet December 26, Adequate MAIN LAB, [address] [place] [address] Estimate 2018 10:27am [place] [address] Target Cells December 26, 2+ MAIN L AB, [address] [place] [address] 2018 10:27am [place] [address] Sodium Level July 137 mmol/L 137-145 MAIN L AB, [address] [place] [address] 2017 10:00am [place] [address] Sodium Level September 136 mmol/L 137-145 MAIN L AB, [address] [place] [address] 2018 9:42am [place] [address] Sodium Level December 26, 136 mmol/L 137-145 MAIN LAB, [address] [place] [address] 2018 10:27am [place] [address] Sodium Level April 135 mmol/L 137-145 MAIN L AB, [address] [place] [address] 2018 10:15am [place] [address] Potassium July 3.7 mmol/L 3.6-5.0 MAIN LAB, [address] [place] [address] 2017 10:00am [place] [address] Potassium September 3.5 mmol/L 3.6-5.0 MAIN LAB, [address] [place] [address] 2018 9:42am [place] [address] Potassium December 26, 4.1 mmol/L 3.6-5.0 MAIN LAB , [address] [place] [address] 2018 10:27am [place] [address] Potassium April 3.4 mmol/L 3.6-5.0 MAIN LAB, [address] [place] [address] 2018 10:15am [place] [address] Chloride July 104 mmol/L 98-107 MAIN LAB, [address] [place] [address] 2017 10:00am [place] [address] Chloride September 103 mmol/L 98-107 MAIN LAB, [address] [place] [address] 2018 9:42am [place] [address] Chloride December 26, 101 mmol/L 98-107 MAIN LAB , [address] [place] [address] 2018 10:27am [place] [address] Chloride April 102 mmol/L 98-107 MAIN LAB, [address] [place] [address] 2018 10:15am [place] [address] Carbon July 26 mmol/L MAIN LAB, [address] [place] [address] Dioxide Level 2017 10:00am [place] [address] Carbon September 27 mmol/L MAIN LAB, [address] [place] [address] Dioxide Level 2018 9:42am [place] [address] Carbon December 26, 28 mmol/L MAIN LAB, [address] [place] [address] Dioxide Level 2018 10:27am [place] [address] Carbon April 25 mmol/L MAIN LAB, [address] [place] [address] Dioxide Level 2018 10:15am [place] [address] Anion Gap July 3104-08 MAIN LAB, [address] [place] [address] 2017 10:00am [place] [address] Anion Gap September 2904-08 MAIN LAB, [address] [place] [address] 2018 9:42am [place] [address] Anion Gap December 2604-08 MAIN LAB, [address] [place] [address] 2018 10:27am [place] [address] Anion Gap May 0104-08 MAIN LAB, [address] [place] [address] 2018 10:15am [place] [address] Blood Urea July 9 mg/dL 05-19 MAIN LAB, [address] [place] [address] 2017 10:00am [place] [address] Blood Urea September 7 mg/dL 05-19 MAIN LAB, [address] [place] [address] Nitrogen 2018 9:42am [place] [address] Blood Urea December 26, 10 mg/dL 05-19 MAIN LAB , [address] [place] [address] 2018 10:27am [place] [address] Blood Urea April 7 mg/dL 05-19 MAIN LAB, [address] [place] [address] Nitrogen 2018 10:15am [place] [address] Creatinine July 0.91 mg/dL 0.66-1.25 MAIN LAB , [address] [place] [address] 2017 10:00am [place] [address] Creatinine September 0.77 mg/dL 0.66-1.25 MAIN LAB , [address] [place] [address] 2018 9:42am [place] [address] Creatinine December 26, 0.73 mg/dL 0.66-1.25 MAIN LA B, [address] [place] [address] 2018 10:27am [place] [address] Creatinine April 0.73 mg/dL 0.66-1.25 MAIN LAB , [address] [place] [address] 2018 10:15am [place] [address] Glomerular July > 60 >60.0 MAIN LAB, [address] [place] [address] 2017 mL/min Rate Calc 10:00am [place] [address] Glomerular September > 60 >60.0 MAIN LAB, [address] [place] [address] 2018 mL/min Rate Calc 9:42am [place] [address] Glomerular December 26, > 60 >60.0 MAIN LAB , [address] [place] [address] 2018 mL/min Rate Calc 10:27am [place] [address] Glomerular April > 60 >60.0 MAIN LAB, [address] [place] [address] 2018 mL/min Rate Calc 10:15am [place] [address] Glucose Level July 99 mg/dL 70-100 MAIN L AB, [address] [place] [address] 2017 10:00am [place] [address] Glucose Level September 108 mg/dL 70-100 MAIN L AB, [address] [place] [address] 2018 9:42am [place] [address] Glucose Level December 26, 103 mg/dL 70-100 MAIN LAB, [address] [place] [address] 2018 10:27am [place] [address] Glucose Level April 93 mg/dL 70-100 MAIN L AB, [address] [place] [address] 2018 10:15am [place] [address] Calcium Level July 8.1 mg/dL 8.4-10.2 MAIN L AB, [address] [place] [address] 2017 10:00am [place] [address] Calcium Level September 8.9 mg/dL 8.4-10.2 MAIN L AB, [address] [place] [address] 2018 9:42am [place] [address] Calcium Level December 26, 8.8 mg/dL 8.4-10.2 MAIN LAB, [address] [place] [address] 2018 10:27am [place] [address] Calcium Level April 8.0 mg/dL 8.4-10.2 MAIN L AB, [address] [place] [address] 2018 10:15am [place] [address] Calcium July 9.1 mg/dL 8.4-10.2 MAIN LAB, [address] [place] [address] Adjusted for 2017 Albumin 10:00am [place] [address] Calcium September 9.5 mg/dL 8.4-10.2 MAIN LAB, [address] [place] [address] Adjusted for 2018 Albumin 9:42am [place] [address] Calcium December 26, 9.6 mg/dL 8.4-10.2 MAIN LAB, [address] [place] [address] Adjusted for 2018 Albumin 10:27am [place] [address] Calcium April 9.1 mg/dL 8.4-10.2 MAIN LAB, [address] [place] [address] Adjusted for 2018 Albumin 10:15am [place] [address] Transferrin July 301 mg/dL 201-352 Test Performed January by:THE LABORATOR IES 10:00am [facility] [place] [address] Transferrin December 26, 337 mg/dL 201-352 Test performed 2018 or referred [facility]ATO DANIELA 10:27am [facility] [place] [address] Transferrin April 289 mg/dL 201-352 Test performed January or referred LABORATO DANIELA 10:15am [facility] [place] [address] Total July 1.2 mg/dL 0.2-1.3 MAIN LAB, [address] [place] [address] Bilirubin 2017 10:00am [place] [address] Total September 2.2 mg/dL 0.2-1.3 MAIN LAB, [address] [place] [address] Bilirubin 2018 9:42am [place] [address] Total December 26, 1.4 mg/dL 0.2-1.3 MAIN LAB, [address] [place] [address] Bilirubin 2018 10:27am [place] [address] Total April 1.6 mg/dL 0.2-1.3 MAIN LAB, [address] [place] [address] Bilirubin 2018 10:15am [place] [address] Aspartate July 69 U/L 17-59 MAIN LAB, [address] [place] [address] Amino Transf 2017 (AST/SGOT) 10:00[place] [address] Aspartate September 71 U/L MAIN LAB, [address] [place] [address] Amino Transf 2018 (AST/SGOT) 9:42[place] [address] Aspartate December 26, 72 U/L MAIN LAB, [address] [place] [address] Amino Transf 2018 (AST/SGOT) 10:27[place] [address] Aspartate April 95 U/L MAIN LAB, [address] [place] [address] Amino Transf 2018 (AST/SGOT) 10:15[place] [address] Alanine July 46 U/L MAIN LAB, [address] [place] [address] Aminotransfer 2017 ase 10:00am [place] [address] (ALT/SGPT) Alanine September 37 U/L MAIN LAB, [address] [place] [address] Aminotransfer 2018 ase 9:42am [place] [address] (ALT/SGPT) Alanine December 26, 40 U/L MAIN LAB, [address] [place] [address] Aminotransfer 2018 ase 10:27am [place] [address] (ALT/SGPT) Alanine April 66 U/L MAIN LAB, [address] [place] [address] Aminotransfer 2018 ase 10:15am [place] [address] (ALT/SGPT) Total Protein July 7.3 g/dL 6.3-8.2 MAIN L AB, [address] [place] [address] 2017 10:00am [place] [address] Total Protein September 8.3 g/dL 6.3-8.2 MAIN L AB, [address] [place] [address] 2018 9:42am [place] [address] Total Protein December 26, 8.0 g/dL 6.3-8.2 MAIN LAB, [address] [place] [address] 2018 10:27am [place] [address] Total Protein April 6.9 g/dL 6.3-8.2 MAIN L AB, [address] [place] [address] 2018 10:15am [place] [address] Albumin July 3.1 g/dL 3.5-5.0 MAIN LAB, [address] [place] [address] 2017 10:00am [place] [address] Albumin September 3.6 g/dL 3.5-5.0 MAIN LAB, [address] [place] [address] 2018 9:42am [place] [address] Albumin December 26, 3.3 g/dL 3.5-5.0 MAIN LAB, [address] [place] [address] 2018 10:27am [place] [address] Albumin April 2.9 g/dL 3.5-5.0 MAIN LAB, [address] [place] [address] 2018 10:15am [place] [address] Cholesterol September 110 mg/dL 59-199 MAIN LAB , [address] [place] [address] 2018 9:42am [place] [address] HDL September 46 mg/dL 40-60 The National MAIN LA B, [address] [place] [address] Cholesterol 2018 Cholesterol 9:42am Education [facility] [address] Program (NCEP) has set the following guidelines (reference values) for cholesterol, HDL:Low HDL: <40 mg/dLNormal: 40-60 mg/dLDesirable : >60 mg/dL LDL September 50.0 mg/dL 0-129 MAIN LAB, [address] [place] [address] Cholesterol 2018 9:42am [place] [address] VLDL September 14.0 mg/dL 0-32 MAIN LAB, [address] [place] [address] Cholesterol 2018 9:42am [place] [address] Cholesterol/H September 2.39 0-3.9 MAIN L AB, [address] [place] [address] DL Ratio 2018 9:42am [place] [address] Triglycerides September 70 mg/dL 0-149 MAIN L AB, [address] [place] [address] 2018 9:42am [place] [address] Alkaline July 124 U/L 38-126 MAIN LAB, [address] [place] [address] Phosphatase 2017 10:00am [place] [address] Alkaline September 122 U/L 38-126 MAIN LAB, [address] [place] [address] Phosphatase 2018 9:42am [place] [address] Alkaline December 26, 145 U/L 38-126 MAIN LAB, [address] [place] [address] Phosphatase 2018 10:27am [place] [address] Alkaline April 135 U/L 38-126 MAIN LAB, [address] [place] [address] Phosphatase 2018 10:15am [place] [address] Thyroid July 6.50 mlU/L 0.47-4.68 TSH cascade is MAIN LAB, [address] [facility] Stimulating 2017 not Hormone (TSH) 10:00am [place] [address] for patients in which pituitary or hypothalmic disorders are suspected. Thyroid September 7.81 mlU/L 0.47-4.68 TSH cascade is MAIN LAB, [address] [facility] Stimulating 2018 not Hormone (TSH) 9:42am [place] [address] for patients in which pituitary or hypothalmic disorders are suspected. Thyroid December 26, 5.63 mlU/L 0.47-4.68 TSH cascade is [facility] LAB, [address] [facility] Stimulating 2018 not Hormone (TSH) 10:27am [place] [address] for patients in which pituitary or hypothalmic disorders are suspected. Thyroid April 7.15 mlU/L 0.47-4.68 TSH cascade is MAIN LAB, [address] [facility] Stimulating 2018 not Hormone (TSH) 10:15am [place] [address] for patients in which pituitary or hypothalmic disorders are suspected. Free July 1.14 ng/dL 0.78-2.19 MAIN LAB, [address] Thyroxine 2017 10:00am [place] [address] Free September 1.12 ng/dL 0.78-2.19 MAIN LAB, [address] [facility] Thyroxine 2018 9:42am [place] [address] Free December 26, 0.96 ng/dL 0.78-2.19 MAIN LAB , [address] [facility] Thyroxine 2018 10:27am [place] [address] Free April 1.25 ng/dL 0.78-2.19 MAIN LAB, [address] [facility] Thyroxine 2018 10:15am [place] [address] Hemoglobin July 5.06 % <5.7%: MAIN LAB, [address] [facility] A1c Percent 2017 Normal5.7%-6.4 10:00am %: [place] [address] Prediabetes>=6 .5%: Diagnostic for diabetesGoals for Glycemic Control in Diabetes (ADA 2018)<7.0%: A1c target for non adults with diabetes. More or less stringent glycemic goals may be appropriate for individual patients.<7.5% : A1c target for children and adolescents with type I diabetes. A lower goal is reasonable if it can be achieved without excessive hypoglycemia. Hemoglobin December 26, 5.43 % <5.7%: MAIN LAB , [address] [facility] A1c Percent 2018 Normal5.7%-6.4 10:27am %: [place] [address] Prediabetes>=6 .5%: Diagnostic for diabetesGoals for Glycemic Control in Diabetes (ADA 2018)<7.0%: A1c target for non adults with diabetes. More or less stringent glycemic goals may be appropriate for individual patients.<7.5% : A1c target for children and adolescents with type I diabetes. A lower goal is reasonable if it can be achieved without excessive hypoglycemia. Hemoglobin April 5.34 % <5.7%: MAIN LAB, [address] [place] [address] A1c Percent 2018 Normal5.7%-6.4 10:15am %: [place] [address] Prediabetes>=6 .5%: Diagnostic for diabetesGoals for Glycemic Control in Diabetes (ADA 2018)<7.0%: A1c target for non adults with diabetes. More or less stringent glycemic goals may be appropriate for individual patients.<7.5% : A1c target for children and adolescents with type I diabetes. A lower goal is reasonable if it can be achieved without excessive hypoglycemia. Estimated July 99 mg/dL MAIN LAB, [address] [place] [address] Average 2017 Glucose mg/dL 10:00[place] [address] Estimated December 26, 109 mg/dL MAIN LAB, [address] [place] [address] Average 2018 Glucose mg/dL 10:27[place] [address] Estimated April 107 mg/dL MAIN LAB, [address] [place] [address] Average 2018 Glucose mg/dL 10:15am [place] [address] Ferritin July 13.4 ng/mL 22-322 The results of MAIN LAB, [address] [place] [address] 2017 this assay can 10:00[place] [address] decreased in patients who consume Biotin. Ferritin December 26, 10.9 ng/mL 22-322 The results of [facility], [address] [place] [address] 2018 this assay can 10:27[place] [address] decreased in patients who consume Biotin. Ferritin April 10.6 ng/mL The results of MAIN LAB, [address] [facility] 2018 this assay can 10:15[place] [address] decreased in patients who consume Biotin. Chief Complaint and Reason for Visit Chief Complaint DETOXING Hematemesis [id number] Encounters Encounter Location(s) Arrival/Admit Date Discharge/Depart Date Provider(s) Departed [facility] July 16, 2018 July 16, 2018 tyree holt Emergency Medical 5:32pm 7:02pm Center-Emergency Department Departed [facility] August 20, August 20, 2018 Camron Suarez Referred Medical 2017 7:51pm 7:52pm MD [facility] Departed [facility] September 12September 12, 2018 [facility] john Physician/Prov Medical 2017 12:00am Medent ider Office [facility] Visit rn Assoc in Surgery Departed [facility] October 01, 2018 October 01, 2018 Mindy Lehman Surgical Day Medical 9:04am 11:58am MD [facility] Departed [facility] October 08, 2018 October 08, 2018 Luzmaria Suarez Referred Medical 9:42am 9:43am MD [facility] Departed [facility] December 26, 2018 December 26, 2018 Camron recinos Referred Medical 10:27am 10:28am MD [facility] Departed [facility] May 02, 2019 May 02, 2019 Camron varner Referred Medical 10:15am 10:16am MD [facility] Departed [facility] July 02, 2019 July 02, 2019 JOJO Javed Referred Medical 7:14pm 7:15pm [facility] Lab Assessments No Assessments Information Available Family History Relationship Condition Age at Onset Recorded Date/Ti me Parent Family history non-contributory Unknown Cardiac disease Unknown Parent Cardiac disease Unknown Not Specified Cardiac disease Unknown Functional Status Observation Response Date Recorded Living Situation Alone October 01, 2018 9: 39am Home October 01, 2018 9: 39am Living Situation Home July 16, 2018 5 :50pm Goals No Goals Information Available Mental Status Observation Response Date Recorded Comprehension Ability Understands Concepts October 01, 2018 9:39am Medical Equipment No Medical Equipment Information available Insurance Providers Guarantor BERE EISENBERG Address [address] [facility] [address] Contact Info. Home Phone: Payer Policy Id Coverage Id Subscriber's Subscriber Id Effective E xpiration Name Date Date [place] [id number] BERE EISENBERG [id number] [place] SELF PAY Self N/A [place] MED[place] [id number] BERE EISENBERG [id number] June 28, (DO NOT USE) 2015 Social History Assigned Sex Male Vital Signs Vital Reading Result Reference Range Collection Date/ Time Weight 97.52 kg July 16, 5:41pm Body Temperature 98.1 [degF] 97.6-99.6 July 16, 2 018 5:41pm Heart Rate 81 /min 60-100 July 16 5:41pm Respiratory rate 18 /min -July 16, 2 018 5:41pm Oxygen saturation by Pulse 98 % 95-100 Octob 2017 5:41pm oximetry BP Systolic 130 mm[Hg] 100-140 July 16 5:41pm BP Diastolic 76 mm[Hg] 50-85 July 16 5:41pm Height 72 [in_i] September 12, 018 8:38am Weight 97.52 kg September 12, 2 018 8:38am Heart Rate 63 /min 60-100 September 12, 2 018 8:38am Respiratory rate 16 /min -September 12, 2018 8:38am Oxygen saturation by Pulse 99 % 95-100 Decem 2017 8:38am oximetry BP Systolic 119 mm[Hg] 100-140 September 12, 2 018 8:38am BP Diastolic 74 mm[Hg] 50-85 September 12, 2 018 8:38am BMI (Body Mass Index) 29.2 kg/m2 August 252017 8:38am Height 72 [in_i] October 01 9 9:38am Weight 97.52 kg October 01 9:38am Body Temperature 98.1 [degF] 97.6-99.6 October 01 11:22am Heart Rate 64 /min 60-100 October 01 9 11:45am Respiratory rate 18 /min -October 01 11:45am Oxygen saturation by Pulse 97 % 95-100 Janua 2018 11:45am oximetry BP Systolic 167 mm[Hg] 100-140 October 01 11:45am BP Diastolic 87 mm[Hg] 50-85 October 01 11:45am BMI (Body Mass Index) 29.1 kg/m2 September 9:38am
--- OUTSIDE RECORDS SUMMARY | 2022-07-21 01:16 | XMS_ITS | Continuity of Care Document ---
:1955 Author Organization [facility] Address [address] [place] [address] Care Team Providers Name Role Phone Camron [...] [phone] Test Performed by: Capacity 2016 10:34am [place] [address] Stock Feeder: James Schreiber MD , Ph D Total [...] have a copy on file here at [facility] [place]? No J critical [facility] hospital 2016 12:14pm Does patient have an Advanced Directive? No January 30, 2012 10:45am Pt has a Living Will? No January 30, 2012 10:45a m Pt has a Power of Photoengraving Printer? No January 30, 2012 10:45am Chief Complaint and Reason for Visit Encounter Admit Date Chief Complaint Reason for Visit Departed Clinical June 05, 2017 ABNORMAL FINDINGS ON DX 12:44pm IMAGIN OF LIVER AND BILIAR Hospital Discharge Instructions No known hospital discharge [...] Atte nding Date Date Provider Departed [facility] June 05June 05, 2017 Radu varner [facility] 2016 12:44pm 12:45pm [facility] Departed [facility] 04June 04, [facility] 8:23pm [facility] 14, 2017 March 14, 2017 8:43pm [facility] 07, 2017 March 07, 2017 1:11pm [facility] 1:10pm [facility] February 27, 2017 February 27, 2017 12:10pm [facility] 12:09pm [facility] Registered [facility] November 07, [facility] 2016 7:07pm Camron Registered [facility] Referred Lab June 30, [facility] 2015 1:26pm Fannie Registered [facility] June 28, [facility] 2016 7:56pm Camron Registered [facility] Respiratory [facility] 12:12[facility] Fannie Functional Status No known functional status. Immunizations No known immunizations. Payers Payer Name Policy Type Covered Covered Relationship Subscriber Sub scriber Id Democrat Democrat Id MEDICAID OF Medicaid EDWARD HAHR [id number] Self/Same as [facility] [id number] [place] Patient SELF PAY Personal [place] Medicaid [facility] [id number] Self/Same as [facility] [id number] (DO NOT USE) Patient Plan of Care [...]
--- OUTSIDE RECORDS SUMMARY | 2022-07-21 01:16 | XMS_ITS | Continuity of Care Document ---
:1955 Author Organization [facility] Address [address] [place] [address] Care Team Providers Name Role Phone Camron [...] Chest w/ Contrast August 20, 2017 completed Relevant Diagnostic Tests and/or Laboratory [...] April 04, 2018 213 mg/dL 202-336 [facility] use 01/23/2018 8:55am Test Performed by: THE [address], [place] [address] Total Bilirubin April 04, 2018 2.1 mg/dL [...] have a copy on file here at [facility] [place]? No J 2016 12:14pm Does patient have an Advanced Directive? No January 30, 2012 10:45am Pt has a Living Will? No January 30, 2012 10:45a m Pt has a Power of Digital Imager? No January 30, 2012 10:45am Chief Complaint and Reason for Visit Encounter Admit Date Chief Complaint Reason for Visit Departed Emergency July 16, 2018 5:32pm DETOXING Hospital Discharge Instructions No known hospital discharge instructions. Hospital Discharge Medications Medication Dose Units Route Sig Qty Days Order Status Instru ctions Date Hydrochlorothiaz 1 CAP ORAL DAILY February 28, Discon tinued lisseth/Triamter 2011 Pantoprazole 40 MG ORAL TWICE A 30 January 31, Discontin ued Take 1 tablet [...] Date Provider Departed [facility] Emergency July 16, July 16, 2018 [facility] Department 2017 5:32pm 7:02pm [facility] April 30April 30, 2018 [facility] April 04, 2018 April 04, 2018 7:03pm [facility]pm [facility], 2018 March 18, 2018 2:41 pm [facility] 2:06pm Awa [facility] January 01January 01, 2018 [facility] 2017 12:11pm 12:12pm [facility] November 28, 2017 November 28, 2017 6:39pm [facility] 6:38pm [facility] 20August 20, [facility] 12:59pm 1:00pm [facility] July 26July 26, 2017 [facility] 7:04pm 7:05pm [place] Functional Status No known functional status. Immunizations No known immunizations. Payers Payer Name Policy Type Covered Covered Relationship Subscriber Sub scriber Id Democrat Democrat Id MEDICAID OF Medicaid [facility] [id number] Self/Same as [facility] [id number] [place] Patient SELF PAY Personal [place] Medicaid [facility] [id number] Self/Same as [facility] [id number] (DO NOT USE) Patient Plan of Care [...]
--- OUTSIDE RECORDS SUMMARY | 2022-07-21 01:16 | XMS_ITS | Continuity of Care Document ---
:1955 Author Organization [facility] Address [address] [place] [address] Care Team Providers Name Role Phone Camron [...] TAB ORAL THREE TIMES October 01, Active Hntw-Oynuwqgnc-Oij A DAY 2018 k Thistle [Liver-Kidney Cleanser] Egxqjlzh-Mnq-Nkvb- 1 TAB ORAL DAILY October 01, Ac [...] perf ormed or referred by 10:15am [facility] [place] [id number] Total Bilirubin May 02, 2019 1.6 mg/dL [...] October 08, 46 mg/dL 40-60 [facility] Cholesterol Education Program (NCEP) has set the [...] Ca 1 TAB ORAL THREE September Active Dojy-Ydgmzuedq-Z TIMES A 2018 ilk This DAY Pzsyrjgs-Xgt-Xwg 1 TAB ORAL DAILY September Active n-Folic-Vit K1 2018 Encounters Encounter Facility Location Admit/Visit Discharge/Departure Atte nding Date Date Provider Departed [facility] Referred Lab July 02July 02, 2019 Shira palma [facility] 2018 7:14pm 7:15pm [facility] 10:15[facility] 10:16am [facility] December 26, 2018 December 26, 2018 10:28a [facility] October 08October 08, 2018 Jane estrella [facility] 2018 9:42am 9:43am [facility] October 01October 01, 2018 [facility] 2019 9:04am 11:58am [facility] September 12September 12, 2018 Jeff herbert [facility] 2018 12:00am Conversi on rovider Surgery [facility] August 20August 20, 2018 [facility] 2017 7:51pm 7:52pm Camron Puga [facility] Emergency July 16July 16, 2018 Emergency [facility] Center Department 2017 5:32pm 7:02pm Functional Status Query Response Date Recorded Comment Comprehension Ability Understands Concepts October 01, 2018 9:39a m Query Response Date Recorded Comment Living Situation Alone October 01, 2018 9:39am Home Immunizations No known immunizations. Payers Payer Name Policy Type Covered Covered Relationship Subscriber Sub scriber Id Libertarian Libertarian Id MEDICAID OF Medicaid [facility] [id number] Self/Same as [facility] [id number] [place] Patient SELF PAY Personal [place] [facility] [id number] Self/Same as [facility] [id number] (DO NOT USE) Patient Plan of Care [...]
--- OUTSIDE RECORDS SUMMARY | 2022-07-21 01:16 | XMS_ITS | Continuity of Care Document ---
:1955 Author Organization [facility] Address [address] [place] [address] Phone Care Team Providers Name Role Phone Camron Suarez Primary Care Provider Camron Suarez Attending Provider Mehdi London Attending Provider Allergies, Adverse Reactions, Alerts Allergen Type Severity Reaction Last Updated Verified Status aspirin Adverse Unknown bleeding September 03, Yes Activ e Reaction 2014 ibuprofen Adverse Unknown flank pain May Yes Active Reaction 2015 acetaminophen Adverse makes sides October 01, Yes A ctive Reaction ache 2018 Medications Medication Status Dose Units Route Sig Qty Days Start End Date Instr uctions Date Hydrochlorothi Discontinu 1 CAP ORAL DAILY Februaryobe r azide/Triamter ed 2011 8:27am 5:50pm Pantoprazole Discontinu 40 MG ORAL TWICE January Take 1 tablet ed A DAY , twice daily 2015 2017 10:05am 5:49pm Phenobarbital Discontinu 16.2 MG ORAL TWICE January T dixie 1/2 ed A DAY , tablet by 2015 2015 mouth twice 10:11am 6:24pm daily, firs t dose Phenobarbital Discontinu 32.4 MG ORAL THREE January T dixie 1 tablet ed TIMES , by mouth A DAY 2015 2017 every 8 hours 10:11am 2:18pm (6AM, 2PM, 10PM) Phenobarbital Discontinu 16.2 MG ORAL TWICE January T dixie 1/2 ed A DAY , tablet by 2015 2017 mouth twice 6:24pm 2:18pm daily, first dose 02/03/16 10AM Ferrous Active 325 MG ORAL DAILY September 9:27am Triamterene-Hy Active 1 TAB ORAL DAILY September drochlorothiaz 2018 9:27am Ca Active 1 TAB ORAL THREE September Phos-Cranberry TIMES , -Milk Thistle A DAY 2018 9:27am Xyaesewp-Svs-B Active 1 TAB ORAL DAILY September zdn-Brbma-Qoy 2018 9:27am Problems Active Problems Medical Problem Onset [...] Status Tear of right biceps muscle Resolved Relevant Diagnostic Tests and/or Laboratory Data Laboratory Results Test Date/Time Result Interpretation Reference Result Comment Performing Range Site White Blood 4.81 4.8-10.8 MAIN LAB , [address] Count 1000/mm3 [facility] [address] White Blood 3.55 4.8-10.8 MAIN LAB , [address] Count 1000/mm3 [facility] [address] White Blood 3.87 4.8-10.8 MAIN LAB , [address] Count 1000/mm3 [facility] [address] White Blood 4.01 4.8-10.8 MAIN LAB , [address] Count 1000/mm3 [facility] [address] White Blood 3.62 4.8-10.8 MAIN LAB , [address] Count 1000/mm3 [facility] [address] Red Blood 3.80 M/mm3 4.70-6.00 MAIN LAB, [address] Count [facility] [address] Red Blood 5.10 M/mm3 4.70-6.00 MAIN LAB, [address] Count [facility] [address] Red Blood 4.66 M/mm3 4.70-6.00 MAIN LAB, [address] Count [facility] [address] Red Blood 4.29 M/mm3 4.70-6.00 MAIN LAB, [address] Count [facility] [address] Red Blood 4.94 M/mm3 4.70-6.00 MAIN LAB, [address] [place] [address] [place] [address] Hemoglobin 11.7 g/dL 14.0-18.0 MAIN LAB, [address] [place] [address] [place] [address] Hemoglobin 8.9 g/dL 14.0-18.0 MAIN LAB, [address] [place] [address] [place] [address] Hemoglobin 8.5 g/dL 14.0-18.0 MAIN LAB, [address] [place] [address] [place] [address] Hemoglobin 9.0 g/dL 14.0-18.0 MAIN LAB, [address] [place] [address] [place] [address] Hemoglobin 10.3 g/dL 14.0-18.0 MAIN LAB, [address] [place] [address] [place] [address] Hematocrit 32.0 % 42-52 MAIN LAB, [address] [place] [address] [place] [address] Hematocrit 32.7 % 42-52 MAIN LAB, [address] [place] [address] [place] [address] Hematocrit 36.5 % 42-52 MAIN LAB, [address] [place] [address] [place] [address] Hematocrit 29.7 % 42-52 MAIN LAB, [address] [place] [address] [place] [address] Hematocrit 39.6 % 42-52 MAIN LAB, [address] [place] [address] [place] [address] Mean 74.6 fL 80.0-94.0 Result MAIN LAB, [address] [place] [address] [place] [address] Volume repeat analysis. Mean 77.6 fL 80.0-94.0 MAIN LAB, [address] [place] [address] [address] [facility] [place] [address] Volume Mean 73.9 fL 80.0-94.0 MAIN LAB, [address] [place] [address] [place] [address] Volume Mean 78.2 fL 80.0-94.0 MAIN LAB, [address] [place] [address] [place] [address] Volume Mean 70.2 fL 80.0-94.0 MAIN LAB, [address] [place] [address] [address] [facility] [place] [address] Volume Mean 22.4 pg 27-31 MAIN LAB, [address] [place] [address] [place] [address] Hemoglobin Mean 22.9 pg 27-31 MAIN LAB, [address] [place] [address] Hemoglobin Mean 20.9 pg 27-31 MAIN LAB, [address] [facility] [place] [address] Hemoglobin Mean 19.3 pg 27-31 [facility], [address] [facility] [place] [address] Hemoglobin Mean 20.7 pg 27-31 Result MAIN LAB, [address] [place], [place] [address]lar confirmed [facility] [place] [address] Hemoglobin repeat analysis. --- 12/26/182024 ---[facility] previously reported as: 20.7 L pg Mean 27.5 g/dL 33-37 MAIN LAB, [address] [facility] [place] [address] Hemoglobin Concent Mean 28.2 g/dL 33-37 MAIN LAB, [address] [facility] [place] [address] Hemoglobin Concent Mean 27.8 g/dL 33-37 MAIN LAB, [address] [place] [address] [place] [address] Hemoglobin Concent Mean 28.6 g/dL 33-37 MAIN LAB, [address] [place] [address] [place] [address] Hemoglobin Concent Mean 29.5 g/dL 33-37 MAIN LAB, [address] [facility] [place] [address] Hemoglobin Concent Red Cell 24.9 % 11.5-14.5 MAIN LAB, [address] [facility] [address] Width Red Cell 21.7 % 11.5-14.5 MAIN LAB, [address] [facility] [place] [address] Width Red Cell 22.1 % 11.5-14.5 MAIN LAB, [address] [facility] [place] [address] Width Red Cell 20.1 % 11.5-14.5 MAIN LAB, [address] [facility] [place] [address] Width Red Cell 18.4 % 11.5-14.5 MAIN LAB, [address] [facility] [place] [address] Width Platelet 104 140-440 MAIN LAB, 133 [facility] Count 1000/mm3 [place] [address] Platelet 107 140-440 MAIN LAB, [address] [facility] Count 1000/mm3 [place] [address] Platelet 118 140-440 MAIN LAB, [address] Count 1000/mm3 [place] [address] Platelet 143 140-440 MAIN LAB, [address] [place] [address] Count 1000/mm3 [place] [address] Platelet 101 140-440 MAIN LAB, [address] [place] [address] Count 1000/mm3 [place] [address] Mean Platelet 11.5 fL 7.4-10.4 MAIN L AB, [address] [place] [address] [place] [address] Mean Platelet 10.4 fL 7.4-10.4 MAIN L AB, [address] [place] [address] [place] [address] Mean Platelet 10.3 fL 7.4-10.4 MAIN L AB, [address] [place] [address] [place] [address] Mean Platelet 10.0 fL 7.4-10.4 MAIN L AB, [address] [place] [address] [place] [address] Mean Platelet 10.9 fL 7.4-10.4 MAIN L AB, [address] [place] [address] [place] [address] Neutrophils 52.9 % 40.0-72.0 MAIN LAB , [address] [place] [address] (%) (Auto) [place] [address] Lymphocytes 22.5 % 17-45 MAIN LAB , [address] [place] [address] (%) (Auto) [place] [address] Monocytes (%) 17.2 % 3-11 MAIN L AB, [address] [place] [address] (Auto) [place] [address] Eosinophils 5.1 % 0-3 MAIN LAB , [address] [place] [address] (%) (Auto) [place] [address] Basophils (%) 2.0 % 0-1 MAIN L AB, [address] [place] [address] (Auto) [place] [address] Immature 0.3 % 0-1 MAIN LAB, [address] [place] [address] Granulocyte % [place] [address] (Auto) Neutrophils # 1.88 1.4-6.5 MAIN L AB, [address] [place] [address] (Auto) 1000/mm3 [place] [address] Lymphocytes # 0.80 1.2-3.4 MAIN L AB, [address] [place] [address] (Auto) 1000/mm3 [place] [address] Monocytes # 0.61 0.0-0.8 MAIN LAB , [address] [place] [address] (Auto) 1000/mm3 [place] [address] Eosinophils # 0.18 0.0-0.7 MAIN L AB, [address] [place] [address] (Auto) 1000/mm3 [facility] [address] Basophils # 0.07 0.0-0.1 MAIN LAB , [address] [place] [address] (Auto) 1000/mm3 [facility] [address] Absolute 0.0 0-1 MAIN LAB, [address] [place] [address] Immature [facility] [address] Granulocyte (auto Differential Automated MAIN LA B, [address] [place] [address] Method [facility] [address] Platelet Adequate MAIN LAB, [address] [place] [address] Estimate [facility] [address] Target Cells 2+ MAIN LA B, [address] [place] [address] Prothrombin 12.1 9.6-11.2 MAIN LAB , [address] [place] [address] Time SECONDS [facility] [address] Prothromb 1.2 2.0-3.0 INR value MAIN LAB, [address] [place] [address] [facility] [address] International patients on Ratio stabilized warfarin therapy. The recommended therapeutic range for warfarin (Coumadin) for most clinical indications is an INR of 2.0-3.0. An INR of 2.5-3.5 is recommended for patients with mechanical heart valves. Sodium Level 139 mmol/L 137-145 MAIN L AB, [address] [place] [address] Sodium Level 136 mmol/L 137-145 MAIN L AB, [address] [place] [address] Sodium Level 135 mmol/L 137-145 MAIN L AB, [address] [place] [address] Sodium Level 136 mmol/L 137-145 MAIN L AB, [address] [place] [address] Potassium 4.1 mmol/L 3.6-5.0 MAIN LAB, [address] [place] [address] Potassium 3.5 mmol/L 3.6-5.0 MAIN LAB, [address] [place] [address] Potassium 3.6 mmol/L 3.6-5.0 MAIN LAB, [address] [place] [address] Potassium 3.4 mmol/L 3.6-5.0 MAIN LAB, [address] [place] [address] Chloride 103 mmol/L 98-107 MAIN LAB, [address] [facility] [place] [address] Chloride 103 mmol/L 98-107 MAIN LAB, [address] [place] [address] [place] [address] Chloride 101 mmol/L 98-107 MAIN LAB, [address] [place] [address] [place] [address] Chloride 102 mmol/L 98-107 MAIN LAB, [address] [place] [address] [place] [address] Carbon 25 mmol/L 22-30 MAIN LAB, [address] [place] [address] D[address] [facility] [address] Carbon 28 mmol/L 22-30 MAIN LAB, [address] [place] [address] Dioxide [facility] [address] Carbon 28 mmol/L 22-30 MAIN LAB, [address] [place] [address] Dioxide [facility] [address] Carbon 27 mmol/L 22-30 MAIN LAB, [address] [place] [address] [place] [address] Anion Gap 7 7-16 MAIN LAB, [address] [place] [address] [place] [address] Anion Gap 8 7-16 MAIN LAB, [address] [place] [address] [place] [address] Anion Gap 6 7-16 MAIN LAB, [address] [place] [address] [place] [address] Anion Gap 8 7-16 MAIN LAB, [address] [place] [address] [place] [address] Blood Urea 7 mg/dL 8-26 MAIN LAB, [address] [place] [address] [place] [address] Blood Urea 10 mg/dL 8-26 MAIN LAB, [address] [place] [address] [place] [address] Blood Urea 7 mg/dL 8-26 MAIN LAB, [address] [place] [address] [place] [address] Blood Urea 8 mg/dL 8-26 MAIN LAB, [address] [place] [address] [place] [address] Creatinine 0.73 mg/dL 0.66-1.25 MAIN LAB , [address] [place] [address] [place] [address] Creatinine 0.77 mg/dL 0.66-1.25 MAIN LAB , [address] [place] [address] [place] [address] Creatinine 0.64 mg/dL 0.66-1.25 MAIN LAB , [address] [place] [address] [place] [address] Creatinine 0.73 mg/dL 0.66-1.25 MAIN LAB , [address] [place] [address] [place] [address] Glomerular > 60 >60.0 MAIN LAB, [address] [place] [address] Filtration mL/min . [facility] [place] [address] Rate Calc Glomerular > 60 >60.0 MAIN LAB, [address] [place] [address] Filtration mL/[place] [address] Rate Calc Glomerular > 60 >60.0 MAIN LAB, [address] [place] [address] Filtration mL/[place] [address] Rate Calc Glomerular > 60 >60.0 MAIN LAB, [address] [place] [address] Filtration mL/min . [facility] [place] [address] Rate Calc Glucose Level 108 mg/dL 70-100 MAIN L AB, [address] [place] [address] [place] [address] Glucose Level 93 mg/dL 70-100 MAIN L AB, [address] [place] [address] [place] [address] Glucose Level 103 mg/dL 70-100 MAIN L AB, [address] [place] [address] [place] [address] Glucose Level 103 mg/dL 70-100 MAIN L AB, [address] [place] [address] [place] [address] Calcium Level 8.8 mg/dL 8.4-10.2 MAIN L AB, [address] [place] [address] [place] [address] Calcium Level 8.2 mg/dL 8.4-10.2 MAIN L AB, [address] [place] [address] [place] [address] Calcium Level 8.9 mg/dL 8.4-10.2 MAIN L AB, [address] [place] [address] [place] [address] Calcium Level 8.0 mg/dL 8.4-10.2 MAIN L AB, [address] [place] [address] [place] [address] Calcium 9.6 mg/dL 8.4-10.2 MAIN LAB, [address] [place] [address] [place] [address] Albumin Calcium 8.7 mg/dL 8.4-10.2 MAIN LAB, [address] [place] [address] [place] [address] Albumin Calcium 9.5 mg/dL 8.4-10.2 MAIN LAB, [address] [place] [address] [place] [address] Albumin Calcium 9.1 mg/dL 8.4-10.2 MAIN LAB, [address] [place] [address] [place] [address] Albumin Transferrin 289 mg/dL 201-352 Test performed [facility]AN[facility] or referred LABORATO DANIELA [address] [address] Transferrin 337 mg/dL 201-352 Test performed [facility] or referred LABORATO DANIELA [address] [address] Total 1.4 mg/dL 0.2-1.3 MAIN LAB, [address] [facility] [place] [address] Total 2.2 mg/dL 0.2-1.3 MAIN LAB, [address] [facility] [place] [address] Total 1.6 mg/dL 0.2-1.3 MAIN LAB, [address] [facility] [place] [address] Total 1.0 mg/dL 0.2-1.3 MAIN LAB, [address] [facility] [place] [address] Aspartate 72 U/L 17-59 MAIN LAB, [address] [facility] [place] [address] (AST/SGOT) Aspartate 95 U/L 17-59 MAIN LAB, [address] [place] [address] [place] [address] (AST/SGOT) Aspartate 83 U/L 17-59 MAIN LAB, [address] [facility] [place] [address] (AST/SGOT) Aspartate 71 U/L 17-59 MAIN LAB, [address] [facility] [place] [address] (AST/SGOT) Alanine 37 U/L 21-72 MAIN LAB, [address] [facility] [place] [address] ase (ALT/SGPT) Alanine 66 U/L 2172 MAIN LAB, [address] [facility] [place] [address] ase (ALT/SGPT) Alanine 40 U/L 21-72 MAIN LAB, [address] [facility] [place] [address] ase (ALT/SGPT) Alanine 42 U/L 21-72 MAIN LAB, [address] [facility] [place] [address] ase (ALT/SGPT) Total Protein 8.0 g/dL 6.3-8.2 MAIN L AB, [address] [facility] [place] [address] Total Protein 6.9 g/dL 6.3-8.2 MAIN L AB, [address] [facility] [place] [address] Total Protein 8.4 g/dL 6.3-8.2 MAIN L AB, [address] [facility] [place] [address] Total Protein 8.3 g/dL 6.3-8.2 MAIN L AB, 133 [place] [address] Albumin 3.7 g/dL 3.5-5.0 MAIN LAB, [address] [place] [address] [place] [address] Albumin 3.6 g/dL 3.5-5.0 MAIN LAB, [address] [place] [address] [place] [address] Albumin 2.9 g/dL 3.5-5.0 MAIN LAB, [address] [place] [address] [place] [address] Albumin 3.3 g/dL 3.5-5.0 MAIN LAB, [address] [place] [address] [place] [address] Cholesterol 110 mg/dL 59-199 MAIN LAB , [address] [place] [address] HDL 46 mg/dL 40-60 The National MAIN LA B, [address] [place] [address] [place] [address] Education Program (NCEP) has set the following guidelines (reference values) for cholesterol, HDL:Low HDL: <40 mg/dLNormal: 40-60 mg/dLDesirable : >60 mg/dL LDL 50.0 mg/dL 0-129 MAIN LAB, [address] [place] [address] [place] [address] VLDL 14.0 mg/dL 0-32 MAIN LAB, [address] [place] [address] [place] [address] Cholesterol/H 2.39 0-3.9 MAIN L AB, [address] [facility] [place] [address] Triglycerides 70 mg/dL 0-149 MAIN L AB, [address] [facility] [place] [address] Alkaline 135 U/L 38-126 MAIN LAB, [address] [place] [address] [address] Alkaline 118 U/L 38-126 MAIN LAB, [address] [place] [address] [place] [address] Alkaline 145 U/L 38-126 MAIN LAB, [address] [facility] [address] [address] Alkaline 122 U/L 38-126 MAIN LAB, [address] [place] [address] [place] [address] Thyroid 7.15 mlU/L 0.47-4.68 TSH cascade is MAIN LAB, [address] [facility] [place] [address] Hormone (TSH) recommended for patients in which pituitary or hypothalmic disorders are suspected. Thyroid 7.81 mlU/L 0.47-4.68 TSH cascade is MAIN LAB, [address] [place] [address] [place] [address] Hormone (TSH) recommended for patients in which pituitary or hypothalmic disorders are suspected. Thyroid 5.63 mlU/L 0.47-4.68 TSH cascade is MAIN LAB, [address] [facility] [place] [address] Hormone (TSH) recommended for patients in which pituitary or hypothalmic disorders are suspected. Thyroid 4.87 mlU/L 0.47-4.68 TSH cascade is MAIN LAB, [address] [place] [address] [address] Hormone (TSH) recommended for patients in which pituitary or hypothalmic disorders are suspected. Free 1.25 ng/dL 0.78-2.19 MAIN LAB, [address] [place] [address] [place] [address] Free 1.12 ng/dL 0.78-2.19 MAIN LAB, [address] [place] [address] [place] [address] Free 1.16 ng/dL 0.78-2.19 MAIN LAB, [address] [place] [address] [place] [address] Free 0.96 ng/dL 0.78-2.19 MAIN LAB, [address] [place] [address] [place] [address] Hemoglobin 5.34 % <5.7%: MAIN LAB, [address] [place] [address] A1c Percent Normal5.7%-6.4 [place] [address] %: Prediabetes>=6 .5%: Diagnostic for diabetesGoals for Glycemic Control in Diabetes (ADA 2018)<7.0%: A1c target for non adults with diabetes. More or less stringent glycemic goals may be appropriate for individual patients.<7.5% : A1c target for children and adolescents with type I diabetes. A lower goal is reasonable if it can be achieved without excessive hypoglycemia. Hemoglobin 5.61 % <5.7 <5.7%: MAIN LAB, [address] [place] [address] A1c Percent Normal5.7%-6.4 [place] [address] %: Prediabetes>=6 .5%: Diagnostic for diabetesGoals for Glycemic Control in Diabetes (ADA 2018)<7.0%: A1c target for non adults with diabetes. More or less stringent glycemic goals may be appropriate for individual patients.<7.5% : A1c target for children and adolescents with type I diabetes. A lower goal is reasonable if it can be achieved without excessive hypoglycemia. Hemoglobin 5.43 % <5.7%: MAIN LAB, [address] [facility] A1c Percent Normal5.7%-6.4 [place] [address] %: Prediabetes>=6 .5%: Diagnostic for diabetesGoals for Glycemic Control in Diabetes (ADA 2018)<7.0%: A1c target for non adults with diabetes. More or less stringent glycemic goals may be appropriate for individual patients.<7.5% : A1c target for children and adolescents with type I diabetes. A lower goal is reasonable if it can be achieved without excessive hypoglycemia. Estimated 109 mg/dL MAIN LAB, [address] [facility] [place] [address] Glucose mg/dL Estimated 107 mg/dL MAIN LAB, [address] [place] [address] [place] [address] Glucose mg/dL Estimated 114 mg/dL MAIN LAB, [address] [facility] [place] [address] Glucose mg/dL Ferritin 16.1 ng/mL 22-322 The results of MAIN LAB, [address] [place] [address] [place] [address] be falsely decreased in patients who consume Biotin. Ferritin 10.9 ng/mL 22-322 The results of MAIN LAB, [address] [place] [address] [place] [address] be falsely decreased in patients who consume Biotin. Ferritin 10.6 ng/mL 22-322 The results of MAIN LAB, [address] [place] [address] [place] [address] be falsely decreased in patients who consume Biotin. Advance Directives Advance Directive Response Recorded Date/Time Does patient have an Advanced Directive? No January 30, 2012 10:45am Do we have a copy on file here at [facility]? No J une 2016 12:14pm Pt has a Living Will? No January 30, 2012 10:4 5am Do we have a copy on file here at [facility]? No J une 2016 12:14pm Pt has a Power of Education Manager? No January 29 2 10:45am Do we have a copy on file here at [facility]? No J une 2016 12:14pm Chief Complaint and Reason for Visit Chief Complaint [id number] Encounters Encounter Location(s) Arrival/Admit Date Discharge/Depart Date Provider(s) Departed [facility] October 08, 2018 October 08, 2018 Luzmaria Suarez Referred Medical 9:42am 9:43am MD [facility] Departed [facility] December 26, 2018 December 26, 2018 Camron recinos Referred Medical 10:27am 10:28am MD [facility] Departed [facility] May 02, 2019 May 02, 2019 Camron varner Referred Medical 10:15am 10:16am MD [facility] Departed [facility] July 02, 2019 July 02, 2019 JOJO Javed Referred Medical 7:14pm 7:15pm [facility] Departed [facility] October 02, 2019 October 02, 2019 Camron Suarez Referred Medical 6:06pm 6:07pm , [facility] Assessments No Assessments Information Available Family History Relationship Condition Age at Onset Recorded Date/Ti me Parent Family history non-contributory Unknown Cardiac disease Unknown Parent Cardiac disease Unknown Not Specified Cardiac disease Unknown Functional Status No Functional Status information available Goals Goals may be documented in an alternate section. Mental Status No Mental Status Information Available Medical Equipment No Medical Equipment Information available Insurance Providers Guarantor BERE EISENBERG Address [address] [facility] [address] Contact Info. Home Phone: Payer Policy Id Coverage Id Subscriber's Subscriber Id Effective E xpiration Name Date Date [place] [id number] BERE EISENBERG [id number] [place] SELF PAY Self N/A [place] MEDICAID [id number] BERE EISENBERG [id number] June 28, (DO NOT USE) 2015 Plan of Treatment Future Tests Future scheduled test information is unavailable Pending Tests Pending diagnostic test information is unavailable Future Visits Future appointment information is unavailable Referrals to Other Providers Reason for Referral Start Provider Provider Contact Provider Address Referral Date Information Orthopaedics [facility] Work Phone: [facility] Medical Office Building [address] [facility] [address] 113 Camron Suarez MD Work Phone: [facility] [place] [address] [facility] [facility] 054 12 Future Procedures Future procedure information is unavailable Future Medications Future medication information is unavailable Patient Instructions Addiction Alcohol Signs Alcoholism Alcoholism Myths Facts Alcoholism Impact Addiction Alcohol Withdrawal Alcohol What Expect Phenobarbital Oral tablet Muscle Strain (DC) Social History Smoking Status Status Date of Observation Ex-smoker (finding) October 01, 2018 9:39am Observation Status Observation Response Date of Response Alcohol Heavy February 26, 2016 1:28a m Living Situation With Family January 30, 2016 9:21am Alcohol Use Yes October 01, 2018 9: 39am alcohol intake frequency 0-2 drinks per day March 18, 2018 2:18pm Substance/Street Drug Use No October 01 9:39am Smoking Status Former smoker October 01, 2018 9: 39am Assigned Sex Male
--- OUTSIDE RECORDS SUMMARY | 2022-07-21 01:16 | XMS_ITS | Continuity of Care Document ---
:1955 Author Organization [facility] Address [address] [place] [address] Care Team Providers Name Role Phone Camron [...] TAB ORAL THREE TIMES October 01, Active Fmgv-Zkpwtwpvo-Anz A DAY 2018 k Thistle [Liver-Kidney Cleanser] Ezqiemug-Rlt-Bffw- 1 TAB ORAL DAILY October 01, Ac [...] Platelet Count October 08, 101 1000/mm3 Low 454-189 4671 9:42am Mean Platelet Volume October 08, 10.0 fL 7.4-10.4 2018 9:42am Sodium Level October 08, 136 mmol/L Low 683-938 8829 9:42am Potassium Level October 08, 3.5 mmol/L [...] Test Perfor med by: 2018 10:00am THE [address] [id number] Total Bilirubin October 08, 2.2 mg/dL High [...] copy [place] [facility] No J une 2016 12:14pm Does patient have an Advanced Directive? No January 30, 2012 10:45am Pt has a Living Will? No January 30, 2012 10:45a m Pt has a Power of Mental Health Social Worker? No January 30, 2012 10:45am Hospital Discharge [...] Ca 1 TAB ORAL THREE September Active Qyvi-Ivlahitkc-Q TIMES A 2018 ilk This DAY Qrycckws-Jjs-Bhp 1 TAB ORAL DAILY September Active n-Folic-Vit K1 2018 Encounters Encounter Facility Location Admit/Visit Discharge/Departure Atte nding Date Date Provider Departed [facility] October 08, October 08, [facility] 9:[facility] October 01October 01, 2018 [facility] Surgical Day [facility] Services 2019 9:04am 11:58am [facility] Departed [facility] 20August 20, 2018 [facility] 7:51[facility] 7:52pm [facility] July 16July 16, 2018 [facility] 2018 5[facility], [facility] 2[facility] 04, 2018 April 04, 2018 [facility] 18, 2018 March 18, 2018 2:[facility] pm [facility] 2:06pm [facility] January 01January 01, 2018 [facility] 2017 12:11pm 12:12pm [facility] November 28, 2017 November 28, 2017 6:39pm [facility] 6:38pm Camron Functional Status No known functional status. Immunizations No known immunizations. Payers Payer Name Policy Type Covered Covered Relationship Subscriber Sub scriber Id Alliance Party Alliance Party Id MEDICAID OF Medicaid EDWARD HAHR [id number] Self/Same as [facility] [id number] [place] Patient SELF PAY Personal [place] MED[place] Medicaid [facility] [id number] Self/Same as [facility] [id number] (DO NOT USE) Patient Plan of Care [...]
--- OUTSIDE RECORDS SUMMARY | 2022-07-21 01:16 | XMS_ITS | Continuity of Care Document ---
:1955 Author Organization [facility] Address [address] [place] [address] Care Team Providers Name Role Phone Camron Suarez Primary Care Physician Rekha Bloom Admitting Physician Rekha Bloom Attending Physician Allergies, Adverse Reactions, Alerts Allergen Type Severity Reaction Last Updated Verified Status aspirin Allergy bleeding September 30 Active 2015 acetaminophen Adverse Reaction makes sides ache September 30 Active 2015 Medications Active Medications Medication Dose Units Route Sig Qty Days Start Discontinued Status I nstructions Date Date Hydrochlorothi 1 CAP ORAL DAILY February Active azide/Triamter 2011 Pantoprazole 40 MG ORAL TWICE 30 January Active Take 1 tablet A DAY 10, twice daily 2015 Phenobarbital 16.2 MG ORAL TWICE 2 January Active Take 1/2 A DAY 10, tablet by 2016 mouth twice daily, first dose Phenobarbital 32.4 MG ORAL THREE 5 January Active Take 1 tablet TIMES 10, by mouth A DAY 2015 every 8 hours (6AM, 2PM, 10PM) Problem List Active Problems Medical Problem Onset Date Status Acute GI bleeding Active Alcohol abuse Active Hypertension Active Liver cirrhosis Active Procedures Procedure Date Status Provider(s) OPD EGD w Biopsy January 31, 2016 completed Manuel Owens OPD EGD w Biopsy - Anemia September 30, 2015 completed Mindy Ibarra OPD Colonoscopy - Anemia September 30, 2015 completed Mindy Mcmahon se US Extremity w/ Dopp LT Lower April 27, 2015 completed Knee 4 vw Min LT April 27, 2015 completed Ankle 3 vw Min LT April 27, 2015 completed Relevant Diagnostic Tests and/or Laboratory Data Laboratory Results Test Date/Time Result Interp. Ref. Range Result Comment White Blood Count January 31, 2016 4.77 1000/mm3 Low 4.8-10.8 6:10am Red Blood Count January 31, 2016 2.65 M/mm3 Low 4.70-6.00 6:10am Hemoglobin February 01, 2016 7.9 g/dL Low 14.0-18.0 6:15am Hematocrit February 01, 2016 25.2 % Low 42-52 6:15am Mean Corpuscular January 31, 2016 86.0 fL 80.0-94.0 Volume 6:10am Mean Corpuscular January 31, 2016 27.2 pg 27-31 Hemoglobin 6:10am Mean Corpuscular January 31, 2016 31.6 g/dL Low 33-37 Hemoglobin Concent 6:10am Red Cell Distribution January 31, 2016 16.7 % High 11.5-14.5 Width 6:10am Platelet Count January 31, 2016 80 1000/mm3 Low 140-440 6:10am Mean Platelet Volume January 31, 2016 10.8 fL High 7.4-10.4 6:10am Neutrophils (%) (Auto) January 29, 2016 51.7 % 40.0-72.0 8:38pm Lymphocytes (%) (Auto) January 29, 2016 37.0 % 17-45 8:38pm Monocytes (%) (Auto) January 29, 2016 10.3 % 3-11 8:38pm Eosinophils (%) (Auto) January 29, 2016 0.3 % 0-3 8:38pm Basophils (%) (Auto) January 29, 2016 0.7 % 0-1 8:38pm Neutrophils # (Auto) January 29, 2016 3.90 1000/mm3 1.4-6.5 8:38pm Lymphocytes # (Auto) January 29, 2016 2.79 1000/mm3 1.2-3.4 8:38pm Monocytes # (Auto) January 29, 2016 0.78 1000/mm3 0.0-0.8 8:38pm Eosinophils # (Auto) January 29, 2016 0.02 1000/mm3 0.0-0.7 8:38pm Basophils # (Auto) January 29, 2016 0.05 1000/mm3 0.0-0.1 8:38pm Differential Method January 29, 2016 Automated 8:38pm Prothrombin Time January 31, 2016 14.3 SECONDS High 9.6-11.2 6:10am Prothromb Time January 31, 2016 1.4 Low 2.0-3.0 INR value valid International Ratio 6:10am only on patients on stabilized warfarin therapy. The recommended therapeutic range for warfarin (Coumadin) for most clinical indications is an INR of 2.0-3.0. An IN R of 2.5-3.5 is recommended fo r patients with mechanical hea rt valves. Activated Partial January 29, 2016 23.2 SECONDS 21.6-36.0 A ta rget of 1.5-2.5 times the mean of the normal reference range is considered therapeutic. Thromboplast Time 8:38pm NOTE: A PTT must NOT be used to monitor LMWH therapy. Contact On license of [facility] for monitoring information. Sodium Level January 30, 2016 139 mmol/L 137-145 6:40am Potassium Level January 30, 2016 3.8 mmol/L 3.6-5.0 6:40am Chloride Level January 30, 2016 109 mmol/L High 98-107 6:40am Carbon Dioxide Level January 30, 2016 23 mmol/L 22-30 6:40am Anion Gap January 30, 2016 7 7-16 6:40am Blood Urea Nitrogen January 30, 2016 25 mg/dL 8-26 6:40am Creatinine January 30, 2016 0.87 mg/dL 0.66-1.25 6:40am Glomerular Filtration January 30, 2016 > 60 mL/min Rate Calc 6:40am Glucose Level January 30, 2016 96 mg/dL 70-100 6:40am Calcium Level January 30, 2016 7.8 mg/dL Low 8.4-10.2 6:40am Calcium Adjusted for January 30, 2016 9.08 mg/dL 8.4-10.2 Albumin 6:40am Phosphorus Level January 29, 2016 3.0 mg/dL 2.5-4.5 8:38pm Magnesium Level January 29, 2016 1.7 mg/dL 1.6-2.3 8:38pm Total Iron Binding August 2, 539 ug/dL High 261-462 Test Performed by: Capacity 2014 12:30pm THE [address] [place] [address] Group Care Worker: James Schreiber MD , Ph D Total Bilirubin January 31, 2016 1.3 mg/dL 0.2-1.3 6:10am Direct Bilirubin January 31, 2016 0 mg/dL 0-0.3 6:10am Aspartate Amino Transf January 31, 2016 80 U/L High 17-59 (AST/SGOT) 6:10am Alanine January 31, 2016 57 U/L 21-72 Aminotransferase 6:10am (ALT/SGPT) Total Protein January 31, 2016 5.3 g/dL Low 6.3-8.2 6:10am Albumin January 31, 2016 2.2 g/dL Low 3.5-5.0 6:10am Alkaline Phosphatase January 31, 2016 48 U/L 38-126 6:10am Thyroid Stimulating August 25, 4.98 mlU/L High 0.47-4.68 TSH cascade is Hormone (TSH) 2014 12:30pm not recom mended for patients i n which pituitar y or hypothalmic disorders are suspected. Free Thyroxine August 25, 1.02 ng/dL 0.78-2.19 2014 12:30pm Ferritin August 25, 15.8 ng/mL Low 22-322 2014 12:30pm Advance Directives Advance Directive Response Recorded Date/Time Does the patient have a living will? No January 30, 2012 10:45am Does the patient have an advanced directive? No January 30, 2012 10:45am Power of Envelope Sealing Machine Operator? No January 30, 2012 10:45am Chief Complaint and Reason for Visit Encounter Admit Date Chief Complaint Reason for Visit Discharged Inpatient January 29, 2016 9:26pm GI BLEED, UPPER Acute ga strointestinal hemorrhage Alcohol abuse Hypertension Hepatic cirrhosi s Hospital Discharge Instructions No known hospital discharge instructions. Hospital Discharge Medications Medication Dose Units Route Sig Qty Days Order Status Instru ctions Date Hydrochlorothiazid 1 CAP ORAL DAILY February 28, Acti ve e/Triamter 2011 Pantoprazole 40 MG ORAL TWICE A January 31, Active Ta ke 1 tablet DAY 2015 twice felicita y Phenobarbital 16.2 MG ORAL TWICE A January 31, Active T dixie 1/2 tablet DAY 2015 by mouth t wice daily, fir st dose Phenobarbital 32.4 MG ORAL THREE January 31, Active Ta ke 1 tablet by TIMES A 2016 mouth valentino ry 8 DAY hours (6AM , 2PM, 10PM) Encounters Encounter Facility Location Admit Date Discharge Attending Date Provider Discharged [facility] Intensive Care January 29, 2016 February 01, 2016 , [facility] Unit 9:26pm 1:13pm Rekha Registered [facility] October 13, Odalis porras [facility] 2015 6:53pm Camron Registered [facility] Surgical September 30, [facility] 2016 8:44am Mind[facility] Registered [facility] 03[facility] 4:58[facility] Mar y Registered [facility] August 25, Odalis porras [facility] 2014 7:28pm Camron Registered [facility] 27[facility] 2:45[facility] Camron Registered [facility] February 26, 2015 Jane estrella [facility] 6:43pm Camron Encounter Diagnosis Onset Date Acute gastrointestinal hemorrhage Alcohol abuse Hypertension Hepatic cirrhosis Family History Query Response Instance Date Recorded Comment Family History Noncontributory January 30, 2016 1:32am Functional Status Query Response Date Recorded Comment Comprehension Ability Understands Concepts February 01, 2016 8:00am Memory Description Intact February 01, 2016 8:00am Mood Description Appropriate February 01, 2016 8:00am Calm Relaxed Patient Behavior Appropriate February 01, 2016 8:00am Cooperative Speech Pattern Clear February 01, 2016 8:00am Appropriate Query Response Date Recorded Comment Ambulation Ability Independent January 29, 2016 11:07pm Clothing Mgt Ability Independent January 29, 2016 11:07pm Feeding Ability Independent January 29, 2016 11:07pm Hygiene & Grooming Ability Independent January 29, 2016 11:07pm Oral Hygiene Ability Independent January 29, 2016 11:07pm Toileting Ability Independent January 29, 2016 11:07pm Immunizations No known immunizations. Payers Payer Name Policy Type Covered Covered Relationship Subscriber Sub scriber Id Green Party Green Party Id FINANCIAL Personal [place] [id number] SELF/SAME [facility] [id number] ASSISTANCE [facility] PATIENT [place] MEDICA[place] Medicaid [place] [id number] SELF/SAME [place] [facility] [id number] [facility] PATIENT Plan of Care Instructions Phenobarbital Oral tabletSigns of Alcoho l Addiction (Alcoholism)Understanding AlcoholismAlcoholism: Myths and FactsThe Impact of AlcoholismAlcohol AddictionAlcohol Withdrawal: What to Expect GENERAL DISCHARGE INSTRUCTIONS_ OUR GOAL You have been cared for by the Hospital Care Team at [facility] ([facility] Our goal is to make sure that your discharge from the hospital is as safe as possible. This means making sure that: >You understand the reason for your hos pitalization. >You understand your medications at dis charge including any new prescriptions, changes to your medication, and stopped medications. >You know the symptoms of your illness and when to call for help. >You understand your discharge plan and instructions. >A summary of your care will be sent to your primary care provider and other members of your care team that you identify. DISCHARGE DIAGNOSIS: Upper GI Bleed DIET: Resume Previous Diet DIET COMMENT: DIET CONSISTENCY: ACTIVITY: Resume Previous Activity ACTIVITY COMMENT: BATHING: No Restrictions BATHING COMMENT: WOUND CARE: WEIGHT BEARING STATUS: WEIGHT LIFTING STATUS: ADDITIONAL INSTRUCTIONS: You will begin taking Protonix 1 tablet twice daily for your stomach. You will also finish your phenobarbital taper at home for alcohol withdrawal. Please follow up with you analy [facility] care provider for assistance with a lcoholism if needed. Please follow up with primary care provider to follow up hemoglobin. FOLLOW UP WITH: SERVICES RECOMMENDED: (if applicable): WHO TO CALL *CONTACT US AT [facility] IF You have not seen your primary care prov ider if you have questions regarding your care in the hospital including questions regarding your medications, discharge instructions , or services arranged prior to seeing your primary care provider. If you were discharged from the Medical/ Surgical unit contact us at: [phone] If you were discharged from the Stepdown /Intensive Care unit contact us at: [phone] Your location at discharge was <b>[facility]</b> Your provider at the hospital was <b>Nawaf Cadet Sra</b> *CONTACT YOUR PRIMARY CARE IF You are concerned that your symptoms are worsening or have returned, to see if your appointment needs to be changed or you need to be seen sooner. WHEN TO GO TO THE EMERGENC Y DEPARTMENT The Emergency Department is there for yo u when you need immediate care for serious illness, injury or severe symptoms.You should call 911 or return to the Emergency Department *IF THE SYMPTOMS OF YOUR RECENT HOSPITAL IZATION HAVE RETURNED OR SEVERELY WORSENED. THESE MIGHT INCLUDE: >Chest Pain Nausea/Vomiting Temperature > 101 F Abdominal Pain Chills Shortness of Breath Decreased Urine Output > >Uncontrolled bleeding >Severe pain not controlled by available oral pain medications >Persistent vomiting or vomiting blood >Fainting >Unexpected shortness of breath or diffi cultly breathing >Persistent high fever greater than 101 >Seizures *SIGNS OR SYMPTOMS OF A HEART ATTACK >CHEST DISCOMFORT Most heart attacks involve discomfort i n the center of the chest that lasts more than a few minutes, or that goes away and comes back. It can feel like uncomfortable pressure, squeezing, full ness or pain. >DISCOMFORT OF OTHER AREAS IN THE UPPER BODY Symptoms can include pain or discomfort in one or both arms, the back, neck, jaw or stomach. >SHORTNESS OF BREATH With or without chest discomfort. >OTHER SIGNS May include breaking out in a cold swea t, nausea or lightheadedness.As with men, womens most common heart attack symptom is chest pain or discomfort. But women are somewhat more likely than men to experience some of the other common symptoms, particularly shortness of breath, nausea/ vomiting and back or jaw pain. *SIGNS OR SYMPTOMS OF STROKE (FAST) >FACE DROOPING Does one side of the face droop or is i t numb? Ask the person to smile. Is the person's smile uneven? >ARM WEAKNESS Is one arm weak or numb? Ask the person to raise both arms. Does one arm drift downward? >SPEECH DIFFICULTY Is speech slurred? Is the person unable to speak or hard to understand? Ask the person to repeat a simple sentence, like The bryant is blue. Is the sentence repeated correctly? >TIME TO CALL 9--1 If someone shows any of these symptoms, even if the symptoms go away, call 9--1 and get the person to the hospital immediately. Check the time so you'll know when the first symptoms appeared. Social History Query Response Date Recorded Comment Alcohol Heavy January 30, 2016 9:21am Living Situation With Family January 30, 2016 9:21am Query Response Start Date Stop Date Smoking Status Former Smoker September 24, 2000 Vital Signs Vital Reading Result Reference Range Collection Date/ Time Height 6 ft January 29, 2016 11:0 7pm Weight 214 lb January 29, 2016 11:0 7pm Temperature 97.6 F 97.6 F-99.6 F February 01, 2016 11: 36am Pulse 66 BPM 60-100 February 01, 2016 11: 36am Respiration 18 RPM 12-24 February 01, 2016 11: 36am Pulse Oximetry 99 % 95-100 February 01, 2016 11: 36am Blood Pressure Systolic 124 100-140 February 01, 2016 11:36am Blood Pressure Diastolic 65 50-85 February 01, 2016 11:36am Body Mass Index 29.0 January 29, 2016 11:0 7pm
--- OUTSIDE RECORDS SUMMARY | 2022-07-21 01:16 | XMS_ITS | Continuity of Care Document ---
:1955 Author Organization [facility] Address [address] [place] [address] Care Team Providers Name Role Phone Camron [...] Test Perform ed by: 2016 10:04[place] [address] Airport Attendant: James Schreiber MD , Ph D Total [...] copy [facility] [place] here [place] [facility] J 2016 12:14pm Does patient have an Advanced Directive? No January 30, 2012 10:45am Pt has a Living Will? No January 30, 2012 10:45a m Pt has a Power of Environmental Aid? No January 30, 2012 10:45am Hospital Discharge [...] Discharge/Departure Atte nding Date Date Provider Departed [facility] November 28, 2017 November 28, 2017 6:39pm [facility] 6:38pm [facility] August 20August 20, [facility] 2016 12:59pm 1:00pm [facility] July 26July 26, [facility] 7:04[facility] 7:05pm [facility] June 05June 05, 2017 [facility] 2016 12:44pm 12:45pm [facility] June 04June 04, 2017 [facility] 8:22pm 8:23pm [facility] March 14, 2017 March 14, 2017 8:43pm [facility] 8:42pm [facility] March 07, 2017 March 07, 2017 1:11pm [facility] 1:10pm [facility] February 27, 2017 February 27, 2017 12:10pm [facility] 12:09pm [facility] Functional Status No known functional status. Immunizations No known immunizations. Payers Payer Name Policy Type Covered Covered Relationship Subscriber Sub scriber Id Constitution Party Constitution Party Id MEDICAID OF Medicaid [facility] [id number] Self/Same as [facility] [id number] [place] Patient SELF PAY Personal [place] MEDICA[place] Medicaid [facility] [id number] Self/Same as [facility] [id number] (DO NOT USE) Patient Plan of Care No Known Plan of Care Information Social History Query Response Date Recorded Comment Alcohol Heavy February 26, 2016 1:28am Living Situation With Family January 30, 2016 9:21am Vital Signs No known vital signs results.
--- OUTSIDE RECORDS SUMMARY | 2022-07-21 01:16 | XMS_ITS | Continuity of Care Document ---
:1955 Author Organization Address [address] [place] [address] Care Team Providers Name Role Phone Camron Suarez Primary Care Physician Brent Vincent Attending Physician Allergies, Adverse Reactions, Alerts Allergen [...] Liver cirrhosis Active Procedures Procedure Date Status Chest 2 vw February 27, 2017 completed [...] Blood Count November 07, 3.65 Low 4.8-10.8 2016 10:34am 1000/mm3 Red Blood Count November 07, 5.10 M/mm3 4.70-6.00 2016 10:34am Hemoglobin November 07, 12.0 g/dL Low 14.0-18.0 2016 10:34am Hematocrit November 07, 39.6 % Low 42-52 2016 10:34am Mean Corpuscular November 07, 77.6 fL Low 80.0-94.0 Volume 2017 10:34am Mean Corpuscular November 07, 23.5 pg Low 27-31 Hemoglobin 2017 10:34am Mean Corpuscular November 07, 30.3 g/dL Low 33-37 Hemoglobin Concent 2017 10:34am Red Cell Distribution November 07, 18.8 % High 11.5-14.5 Width 2016 10:34am Platelet Count November 07, 118 1000/mm3 Low 340-454 0266 10:34am Mean Platelet Volume November 07, 11.9 fL High 7.4-10.4 2016 10:34am Sodium Level November 07, 140 mmol/L 194-225 0853 10:34am Potassium Level November 07, 3.9 mmol/L 3.6-5.0 2016 10:34am Chloride Level November 07, 100 mmol/L 98-107 2016 10:34am Carbon Dioxide Level November 07, 26 mmol/L 22-2016 10:34am Anion Gap November 07, 14 7-16 2016 10:34am Blood Urea Nitrogen November 07, 7 mg/dL Low 8-26 2016 10:34am Creatinine November 07, 0.7 mg/dL 0.66-1.25 2016 10:34am Glomerular Filtration November 07, > 60 mL/min Rate Calc 2017 10:34am Glucose Level November 07, 96 mg/dL 70-100 2016 10:34am Calcium Level November 07, 8.3 mg/dL Low 8.4-10.2 2017 10:34am Calcium Adjusted for November 07, 8.7 mg/dL 8.4-10.2 Albumin 2016 10:34am Total Iron Binding November 07, 513 ug/dL High 261-462 Test Performed by: Capacity 2016 10:34am [facility] [place] [id number] Registered Nurse Hh Case Manager: James Schreiber MD , Ph D Total Bilirubin November 07, 2.4 mg/dL High 0.2-1.3 2016 10:34am Aspartate Amino Transf November 07, 158 U/L High 17-59 (AST/SGOT) 2016 10:34am Alanine November 07, 80 U/L High [...] have a copy on file here at [facility] No J 2016 12:14pm Does patient have an Advanced Directive? No January 30, 2012 10:45am Pt has a Living Will? No January 30, 2012 10:45a m Pt has a Power of Stamp Presser? No January 30, 2012 10:45am Chief Complaint and Reason for Visit Encounter Admit Date Chief Complaint Reason for Visit Departed Clinical February 27, 2017 12:09pm Xray Hospital Discharge Instructions No known hospital discharge [...] TWICE A January 31, Active T dixie 1/ DAY 2015 tablet by mouth twic e daily, fir st dose 10AM Encounters Encounter Facility Location Admit/Visit Discharge/Departure Atte nding Date Date Provider Departed Gabby February 27, 2017 February 27, 2017 12:10pm [facility] 12:09pm [facility] Registered [facility] November 07, [facility] 2016 7:07pm Camron Registered [facility] Referred Lab June 30, [facility] 2015 1:26pm Fannie Registered [facility] June 28, [facility] 2015 7:56pm Camron Registered [facility] Respiratory June 28, [facility] Therapy 2015 12:12pm Fannie Functional Status No known functional status. Immunizations No known immunizations. Payers Payer Name Policy Type Covered Covered Relationship Subscriber Sub scriber Id Republican Republican Id MEDICAID OF Medicaid EDWARD HAHR [id number] Self/Same as [id number] [place] Patient SELF PAY Personal [place] MEDICA[place] Medicaid [facility] [id number] Self/Same as [id number] (DO NOT USE) Patient Plan of Care [...]
--- OUTSIDE RECORDS SUMMARY | 2022-07-21 01:16 | XMS_ITS | Continuity of Care Document ---
:1955 Author Organization [facility] Address [address] [place] [address] Care Team Providers Name Role Phone Camron [...] Platelet Count August 20, 113 1000/mm3 Low [phone] 10:00am Mean Platelet Volume August 20, 11.0 fL High 7.4-10.4 2017 10:00am Sodium Level August 20, 137 mmol/L [phone] 10:00am Potassium Level August 20, 3.7 mmol/L [...] April 04, 2018 213 mg/dL [phone] [facility] Method[facility] in use 01/23/2018 8:55am Test Performed by: THE [address], [place] [address] Total Bilirubin August 20, 1.2 mg/dL 0.2-1.3 [...] have a copy on file here at [facility]? No J kemal 2016 12:14pm Does patient have an Advanced Directive? No January 30, 2012 10:45am Pt has a Living Will? No January 30, 2012 10:45a m Pt has a Power of Dietary Worker? No January 30, 2012 10:45am Hospital [...] Discharge/Departure Atte nding Date Date Provider Departed [facility] August 20August 20, 2018 [facility] 2017 7:51pm 7:52pm [facility] 2017 5:32pm 7:02pm [facility] April 30April 30, 2018 2:04pm [facility] April 04, 2018 April 04, 2018 7:03pm [facility] 7:02pm Camron [facility] March 18, 2018 March 18, 2018 2:41 pm [facility] 2:06pm Awa [facility] January 01January 01, 2018 [facility] 2017 12:11pm 12:12pm [facility] November 28, 2017 November 28, 2017 6:39pm [facility] 6:38pm Camron Functional Status No known functional status. Immunizations No known immunizations. Payers Payer Name Policy Type Covered Covered Relationship Subscriber Sub scriber Id Alliance Party Alliance Party Id MEDICAID OF Medicaid [facility] [id number] Self/Same as [facility] [id number] [place] Patient SELF PAY Personal [place] MED[place] Medicaid [facility] [id number] Self/Same as [facility] [id number] (DO NOT USE) Patient Plan of Care [...]
--- OUTSIDE RECORDS SUMMARY | 2022-07-21 01:16 | XMS_ITS | Continuity of Care Document ---
:1955 Author Organization [facility] Address [address] [place] [address] Care Team Providers Name Role Phone Camron [...] by: Capacity 2016 10:34am [place] [address] Engineering Librarian: James Schreiber MD , Ph D Total [...] [facility] J [facility] 2016 12:14pm Does patient have an Advanced Directive? No January 30, 2012 10:45am Pt has a Living Will? No January 30, 2012 10:45a m Pt has a Power of Straightener Hand? No January 30, 2012 10:45am Hospital Discharge [...] Discharge/Departure Atte nding Date Date Provider Departed [facility] March 14, 2017 March 14, 2017 8:43pm [facility]42[facility], [facility] March 07, 2017 1:11pm [facility] 1:10pm [facility] 27, 2017 February 27, 2017 12:10pm [facility] 12:09pm [facility] Registered [facility] November 07, [facility] 2016 7:07pm Camron Registered [facility] Referred Lab June 30, [facility] 2015 1:26pm Fannie Registered [facility] June 28, [facility] 2015 7:56pm Camron Registered [facility] Respiratory June 28, [facility] 2015 12:12pm Fannie Functional Status No known functional status. Immunizations No known immunizations. Payers Payer Name Policy Type Covered Covered Relationship Subscriber Sub scriber Id Alliance Party Alliance Party Id MEDICAID OF Medicaid [facility] [id number] Self/Same as [facility] [id number] [place] Patient SELF PAY Personal [place] MEDICA[place] Medicaid [facility] [id number] Self/Same as [facility] [id number] (DO NOT USE) Patient Plan of Care [...]
--- OUTSIDE RECORDS SUMMARY | 2022-07-21 01:16 | XMS_ITS | Continuity of Care Document ---
:1955 Author Organization [facility] Address [address] [place] [address] Phone Care Team Providers Name Role Phone Camron Suarez Primary Care Provider Camron Suarez Attending Provider Mehdi London Attending Provider Jia Bledsoe Attending Provider Allergies, Adverse Reactions, Alerts Allergen Type Severity Reaction Last Updated Verified Status aspirin Adverse Unknown bleeding September 03, Yes Activ e Reaction 2014 12:00am ibuprofen Adverse Unknown flank pain May Yes Active Reaction 2015 12:00am acetaminophen Adverse makes sides October 01, Yes A ctive Reaction ache 2018 9:24am Medications Medication Status Dose Units Route Sig Qty Days Start End Date Instr uctions Date Hydrochlorothi Discontinu 1 CAP PO DAILY Februaryobe r azide/Triamter ed , , (HYDR 2011 2017 OCHLOROTHIAZID 8:27am 5:50pm E/TRIAM 25 mg-37.5 mg) 1 CAP Cap Pantoprazole Discontinu 40 MG PO TWICE January Take 1 tablet (Protonix) 40 ed A DAY , twice daily MG 2015 2017 tablet,delayed 10:05am 5:49pm release (DR/EC) Phenobarbital Discontinu 16.2 MG PO TWICE January T dixie 1/2 ed A DAY , tablet by 2015 2015 mouth twice 10:11am 6:24pm daily, firs t dose Phenobarbital Discontinu 32.4 MG PO THREE January T dixie 1 tablet ed TIMES , by mouth A DAY 2015 2017 every 8 hours 10:11am 2:18pm (6AM, 2PM, 10PM) Phenobarbital Discontinu 16.2 MG PO TWICE 2 January T dixie 1/2 ed A DAY , tablet by 2015 2017 mouth twice 6:24pm 2:18pm daily, first dose 02/03/16 10AM Ferrous Active 325 MG PO DAILY September 9:27am Triamterene-Hy Active 1 TAB PO DAILY September drochlorothiaz , id 2018 9:27am Ca Active 1 TAB PO September Phos-Cranberry TIMES , -Milk Thistle A DAY 2018 (Liver-Kidney 9:27am Cleanser) Capsule Kbolocys-Eoj-K Active 1 TAB PO DAILY September cgp-Pvinl-Tpf , K1 (Centrum 2019 Chewables) 8 9:27am mg-400 mcg- 10 mcg Tablet,Chewabl e Problems Active Problems Medical Problem Onset Date [...] Result Comment Performing Range Site White Blood September 3.62 4.8-10.8 MAIN LAB , [address] Count 2019 1000/mm3 [facility] [address] 10:38am White Blood June 3.55 4.8-10.8 MAIN LAB , [address] Count 2018 1000/mm3 [facility] 363[address] 10:55am White Blood April 3.94 4.8-10.8 MAIN LAB , [address] [facility] Count 2019 1000/mm3 [facility] [address] 11:35am White Blood April 4.81 4.8-10.8 MAIN LAB , [address] [place] [address] Street Count 2018 1000/mm3 [facility] [address] 10:15am Red Blood April 5.54 M/mm3 4.70-6.00 MAIN LAB, [address] Count 2019 [facility] [address] 11:35am Red Blood June 4.66 M/mm3 4.70-6.00 MAIN LAB, [address] [place] [address] 2018 [place] [address] 10:55am Red Blood September 4.94 M/mm3 4.70-6.00 MAIN LAB, [address] [place] [address] 2019 [place] [address] 10:38am Red Blood April 3.80 M/mm3 4.70-6.00 MAIN LAB, [address] [place] [address] 2018 [place] [address] 10:15am Hemoglobin September 10.3 g/dL 14.0-18.0 MAIN LAB, [address] [place] [address] 2019 [facility] 259[address] 10:38am Hemoglobin April 8.5 g/dL 14.0-18.0 MAIN LAB, [address] [place] [address] 2018 [facility] 326[address] 10:15am Hemoglobin April 13.3 g/dL 14.0-18.0 MAIN LAB, [address] [place] [address] 2019 [facility] [address]67[address] 11:35am Hemoglobin June 9.0 g/dL 14.0-18.0 MAIN LAB, [address] [place] [address] 2018 [place] [address] 10:55am Hematocrit April 29.7 % -52 MAIN LAB, [address] [place] [address] 2018 [place] [address] 10:15am Hematocrit September 36.5 % 52 MAIN LAB, [address] [place] [address] 2019 [place] [address] 10:38am Hematocrit June 32.7 % 52 MAIN LAB, [address] [place] [address] 2018 [place] [address] 10:55am Hematocrit April 44.4 % 42-52 MAIN LAB, [address] [place] [address] 2019 [place] [address] 11:35am Mean April 80.1 fL 80.0-94.0 MAIN LAB, [address] [place] [address] Corpuscular 2019 [place] [address] Volume 11:35am Mean June 70.2 fL 80.0-94.0 MAIN LAB, [address] [place] [address] Corpuscular 2018 [place] [address] Volume 10:55am Mean September 73.9 fL 80.0-94.0 MAIN LAB, [address] [place] [address] 2019 [place] [address] Volume 10:38am Mean April 78.2 fL 80.0-94.0 MAIN LAB, [address] [place] [address] 2018 [place] [address] Volume 10:15am Mean April 24.0 pg -31 MAIN LAB, [address] [place] [address] 2019 [place] [address] Hemoglobin 11:35am Mean April 22.4 pg -31 MAIN LAB, [address] [place] [address] 2018 [place] [address] Hemoglobin 10:15am Mean June 19.3 pg MAIN LAB, [address] [place] [address] 2018 [place] [address] Hemoglobin 10:55am Mean September 20.9 pg MAIN LAB, [address] [place] [address] 2019 [place] [address] Hemoglobin 10:38am Mean April 30.0 g/dL 33-37 MAIN LAB, [address] [place] [address] 2019 [place] [address] Hemoglobin 11:35am Concent Mean April 28.6 g/dL MAIN LAB, [address] [place] [address] 2018 [place] [address] Hemoglobin 10:15am Concent Mean June 27.5 g/dL 37 MAIN LAB, [address] [place] [address] 2018 [place] [address] Hemoglobin 10:55am Concent Mean September 28.2 g/dL -37 MAIN LAB, [address] [place] [address] 2019 [place] [address] Hemoglobin 10:38am Concent Red Cell September 20.1 % 11.5-14.5 MAIN LAB, [address] [place] [address] 2019 [place] [address] Width 10:38am Red Cell June 21.7 % 11.5-14.5 MAIN LAB, [address] [place] [address] 2018 [place] [address] Width 10:55am Red Cell April 20.5 % 11.5-14.5 MAIN LAB, [address] [place] [address] [place] [address] Width 11:35am Red Cell April 22.1 % 11.5-14.5 MAIN LAB, [address] Distribution [address] [place] [address] Width 10:15am Platelet April 115 140-440 MAIN LAB, [address] Count 2019 1000/mm3 [place] [address] 11:35am Platelet April 143 140-440 MAIN LAB, [address] Count 2018 1000/mm3 [place] [address] 10:15am Platelet September 118 140-440 MAIN LAB, [address] Count 2019 1000/mm3 [place] [address] 10:38am Platelet June 104 140-440 MAIN LAB, [address] Count 2018 1000/mm3 [place] [address] 10:55am Mean June 10.4 fL 7.4-10.4 MAIN LAB, [address] [facility] Platelet 2018 [place] [address] Volume 10:55am Mean September 10.3 fL 7.4-10.4 MAIN LAB, [address] [facility] Platelet 2019 [place] [address] Volume 10:38am Mean April 11.5 fL 7.4-10.4 MAIN LAB, [address] Platelet 2018 [place] [address] Volume 10:15am Mean April 10.8 fL 7.4-10.4 MAIN LAB, [address] [facility] Platelet 2019 [place] [address] Volume 11:35am Neutrophils April 49.9 % 40.0-72.0 MAIN LAB , [address] [place] [address] (%) (Auto) 2019 [place] [address] 11:35am Neutrophils October 52.9 % 40.0-72.0 MAIN LAB , [address] [place] [address] (%) (Auto) [address] [place] [address] 10:55am Lymphocytes April 30.2 % 17-45 MAIN LAB , [address] [place] [address] (%) (Auto) [address] [place] [address] 11:35am Lymphocytes June 22.5 % 17-45 MAIN LAB , [address] [place] [address] (%) (Auto) 2018 [place] [address] 10:55am Monocytes October 17.2 % 3-11 MAIN LAB, [address] [place] [address] (%) (Auto) [address] [place] [address] 10:55am Monocytes Fidelis 12.2 % 3-11 MAIN LAB, [address] [place] [address] (%) (Auto) [address] [place] [address] 11:35am Eosinophils Fidelis 5.6 % 0-3 MAIN LAB , [address] [place] [address] (%) (Auto) [address] [place] [address] 11:35am Eosinophils October 5.1 % 0-3 MAIN LAB , [address] [place] [address] (%) (Auto) [address] [place] [address] 10:55am Basophils Fidelis 1.8 % 0-1 MAIN LAB, [address] [place] [address] (%) (Auto) [address] [place] [address] 11:35am Basophils October 2.0 % 0-1 MAIN LAB, [address] [place] [address] (%) (Auto) [address] [place] [address] 10:55am Immature October 0.3 % 0-1 MAIN LAB, [address] [place] [address] [place] [address] % (Auto) 10:55am Immature Fidelis 0.3 % 0-1 MAIN LAB, [address] [place] [address] [place] [address] % (Auto) 11:35am Neutrophils Fidelis 1.97 1.4-6.5 MAIN LAB , [address] [place] [address] # (Auto) 2019 1000/mm3 [place] [address] 11:35am Neutrophils October 1.88 1.4-6.5 MAIN LAB , [address] [place] [address] # (Auto) 2018 1000/mm3 [place] [address] 10:55am Lymphocytes June 0.80 1.2-3.4 MAIN LAB , [address] [place] [address] # (Auto) 2018 1000/mm3 [place] [address] 10:55am Lymphocytes April 1.19 1.2-3.4 MAIN LAB , [address] [place] [address] # (Auto) 2019 1000/mm3 [place] [address] 11:35am Monocytes # Fidelis 0.48 0.0-0.8 MAIN LAB , [address] [place] [address] (Auto) 2019 1000/mm3 [place] [address] 11:35am Monocytes # October 0.61 0.0-0.8 MAIN LAB , [address] [place] [address] (Auto) 2018 1000/mm3 [place] [address] 10:55am Eosinophils October 0.18 0.0-0.7 MAIN LAB , [address] [place] [address] # (Auto) 2018 1000/mm3 [place] [address] 10:55am Eosinophils Fidelis 0.22 0.0-0.7 MAIN LAB , [address] [place] [address] # (Auto) 2019 1000/mm3 [place] [address] 11:35am Basophils # June 0.07 0.0-0.1 MAIN LAB , [address] [place] [address] (Auto) 2018 1000/mm3 [place] [address] 10:55am Basophils # April 0.07 0.0-0.1 MAIN LAB , [address] [place] [address] (Auto) 2019 1000/mm3 [place] [address] 11:35am Absolute October 0.0 0-1 MAIN LAB, [address] [place] [address] Immature 2018 [place] [address] Granulocyte 10:55am (auto Absolute Fidelis 0.0 0-1 MAIN LAB, [address] [place] [address] Immature 2019 [place] [address] Granulocyte 11:35am (auto Differential April Automated MAIN LA B, [address] [place] [address] Method 2019 [place] [address] 11:35am Differential June Automated MAIN [place] B, [address] [place] [address] Method 2018 [place] [address] 10:55am Differential September See Microcytic MAIN L AB, [address] [place] [address] Pathologist' [address] [place] [address] s Review 10:38am anemia,suggesti ve of iron deficiency. Anupam Stinson MD 10/03/19 Prothrombin September 12.1 9.6-11.2 MAIN LAB , [address] [place] [address] Time 2019 [place] [address] 10:38am Prothromb September 1.2 2.0-3.0 INR value valid MAIN LAB, [address] [place] [address] Time 2019 [place] [address] Internationa 10:38am patients on l Ratio stabilized warfarin therapy. The recommended therapeutic range for warfarin (Coumadin) for most clinical indications is an INR of 2.0-3.0. An INR of 2.5-3.5 is recommended for patients with mechanical heart valves. Sodium Level April 135 mmol/L 137-145 MAIN L AB, [address] [place] [address] 2018 [facility] [address] 10:15am Sodium Level April 138 mmol/L 137-145 MAIN L AB, [address] [place] [address] 2019 [facility] [address] 11:35am Sodium Level September 139 mmol/L 137-145 MAIN L AB, [address] [place] [address] 2019 [facility] 86152 10:38am Potassium April 3.4 mmol/L 3.6-5.0 MAIN LAB, [address] [place] [address] 2018 [facility] [address] 10:15am Potassium September 3.6 mmol/L 3.6-5.0 MAIN LAB, [address] [place] [address] 2019 [facility] [address] 10:38am Potassium April 3.7 mmol/L 3.6-5.0 MAIN LAB, [address] [place] [address] 2019 [facility] [address]264 11:35am Chloride April 102 mmol/L 98-107 MAIN LAB, [address] [place] [address] 2019 [facility] [address] 11:35am Chloride April 102 mmol/L 98-107 MAIN LAB, [address] [place] [address] 2018 [facility] [address] 10:15am Chloride September 103 mmol/L 98-107 MAIN LAB, [address] [place] [address] 2019 [facility] [address]146 10:38am Carbon April 27 mmol/L 22-30 MAIN LAB, [address] [place] [address] Dioxide 2019 [facility] [address] Level 11:35am Carbon April 25 mmol/L 22-30 MAIN LAB, [address] [place] [address] Dioxide 2018 [facility] [address] Level 10:15am Carbon September 28 mmol/L 22-30 MAIN LAB, [address] [place] [address] 2019 [facility] [address] Level 10:38am Anion Gap October 0104-08 MAIN LAB, [address] [place] [address] 2019 [facility] [address] 10:38am Anion Gap May 0104-08 MAIN LAB, [address] [place] [address] 2018 [place] [address] 10:15am Anion Gap April 9 -16 MAIN LAB, [address] [place] [address] 2019 [place] [address] 11:35am Blood Urea Lnea 8 mg/dL 05-19 MAIN LAB, [address] [place] [address] Nitrogen 2019 [place] [address] 10:38am Blood Urea April 13 mg/dL 05-19 MAIN LAB, [address] [place] [address] Nitrogen 2019 [place] [address] 11:35am Blood Urea April 7 mg/dL 05-19 MAIN LAB, [address] [place] [address] Nitrogen 2018 [place] [address] 10:15am Creatinine April 0.73 mg/dL 0.66-1.25 MAIN LAB , [address] [place] [address] 2018 [place] [address] 10:15am Creatinine April 0.72 mg/dL 0.66-1.25 MAIN LAB , [address] [place] [address] 2019 [facility] 10083 11:35am Creatinine September 0.64 mg/dL 0.66-1.25 MAIN LAB , [address] [place] [address] 2019 [place] [address] 10:38am Glomerular Fidelis > 60 >60.0 MAIN LAB, [address] [place] [address] Filtration 2018 mL/[place] [address] Rate Calc 10:15am Glomerular Fidelis > 60 >60.0 MAIN LAB, [address] [place] [address] Filtration 2019 mL/[place] [address] Rate Calc 11:35am Glomerular Lena > 60 >60.0 MAIN LAB, [address] [place] [address] Filtration 2019 mL/[place] [address] Rate Calc 10:38am Glucose April 85 mg/dL 70-100 MAIN LAB, [address] [place] [address] 2019 [place] [address] 11:35am Glucose September 103 mg/dL 70-100 MAIN LAB, [address] [place] [address] 2019 [place] [address] 10:38am Glucose April 93 mg/dL 70-100 MAIN LAB, [address] [place] [address] 2018 [place] [address] 10:15am Calcium Fidelis 8.9 mg/dL 8.4-10.2 MAIN LAB, [address] [place] [address] 2019 [place] [address] 11:35am Calcium Fidelis 8.0 mg/dL 8.4-10.2 MAIN LAB, [address] [place] [address] Level 2018 [facility] [address]169 10:15am Calcium September 8.2 mg/dL 8.4-10.2 MAIN LAB, [address] [place] [address] Level 2019 [facility] 41735 10:38am Calcium April 8.8 mg/dL 8.4-10.2 MAIN LAB, [address] [place] [address] Adjusted for 2019 [facility] [address] Albumin 11:35am Calcium April 9.1 mg/dL 8.4-10.2 MAIN LAB, [address] [place] [address] Adjusted for 2018 [facility] [address]804 Albumin 10:15am Calcium September 8.7 mg/dL 8.4-10.2 MAIN LAB, [address] [place] [address] Adjusted for 2019 [facility] [address]89[address] Albumin 10:38am Transferrin April 289 mg/dL 201-352 Test performed January MEDICAL 2018 or referred [facility]ATO DANIEL[facility] [place] [address] Transferrin September 376 mg/dL 201-352 Test performed JANUARY MEDICAL 2019 or referred LAB[facility]ATO DANIELA 10:38am [facility] [place] [address] Total April 1.6 mg/dL 0.2-1.3 MAIN LAB, [address] [place] [address] Bilirubin 2018 [facility] 90876 10:15am Total April 1.1 mg/dL 0.2-1.3 MAIN LAB, [address] [place] [address] Bilirubin 2019 [facility] 90871 11:35am Total September 1.0 mg/dL 0.2-1.3 MAIN LAB, [address] [place] [address] Bilirubin 2019 [facility] [address]58[address] 10:38am Aspartate April 95 U/L 17-59 MAIN LAB, [address] [place] [address] Amino Transf 2018 [facility] [address]2095 (AST/SGOT) 10:15am Aspartate September 83 U/L 17-59 MAIN LAB, [address] [place] [address] Amino Transf 2019 [facility] 15814 (AST/SGOT) 10:38am Aspartate April 83 U/L 17-59 MAIN LAB, [address] [place] [address] Amino Transf 2019 [facility] 53001 (AST/SGOT) 11:35am Alanine September 42 U/L MAIN LAB, [address] [place] [address] Aminotransfe 2019 [facility] [address] rase 10:38am (ALT/SGPT) Alanine April 37 U/L <50 As of 01/23/20, MAIN L AB, [address] [place] [address] Aminotransfe 2019 the Reference [place] [address] rase 11:35am Range for (ALT/SGPT) ALT/SGPT for adult patients has been updated. The Reference Range for ALT/SGPT has not been established for patients <18 years of age. Alanine April 66 U/L MAIN LAB, [address] [place] [address] Aminotransfe 2018 [facility] [address]148 rase 10:15am (ALT/SGPT) Total April 6.9 g/dL 6.3-8.2 MAIN LAB, [address] [place] [address] Protein 2018 [facility] 87772 10:15am Total April 8.4 g/dL 6.3-8.2 MAIN LAB, [address] [place] [address] Protein 2019 [facility] 12191 11:35am Total Lena 8.4 g/dL 6.3-8.2 MAIN LAB, [address] [place] [address] Protein 2019 [facility] 70497 10:38am Albumin April 2.9 g/dL 3.5-5.0 MAIN LAB, [address] [place] [address] 2018 [facility] 10260 10:15am Albumin September 3.7 g/dL 3.5-5.0 MAIN LAB, [address] [place] [address] 2019 [facility] 07228 10:38am Albumin April 4.4 g/dL 3.5-5.0 MAIN LAB, [address] [place] [address] 2019 [facility] 50845 11:35am Alkaline September 118 U/L 38-126 MAIN LAB, [address] [place] [address] Phosphatase 2019 [facility] 58746 10:38am Alkaline April 135 U/L 38-126 MAIN LAB, [address] [place] [address] Phosphatase 2018 [facility] [address] 10:15am Alkaline Fidelis 123 U/L 38-126 MAIN LAB, [address] [facility] Phosphatase [address] [place] [address] 11:35am Thyroid April 7.15 mlU/L 0.47-4.68 TSH cascade is MAIN LAB, [address] Stimulating 2018 not recommended . [facility] [place] [address] Hormone 10:15am for patients in (TSH) which pituitary or hypothalmic disorders are suspected. Thyroid September 4.87 mlU/L 0.47-4.68 TSH cascade is MAIN LAB, [address] [facility] Stimulating 2019 not recommended . [facility] [place] [address] Hormone 10:38am for patients in (TSH) which pituitary or hypothalmic disorders are suspected. Free September 1.16 ng/dL 0.78-2.19 MAIN LAB, [address] Thyroxine 2019 [place] [address] 10:38am Free April 1.25 ng/dL 0.78-2.19 MAIN LAB, [address] [facility] Thyroxine 2018 [place] [address] 10:15am Hemoglobin September 5.61 % <5.7 <5.7%: MAIN LAB, [address] A1c Percent 2019 Normal5.7%-6.4% St . [facility] [place] [address] 10:38am : Prediabetes>=6. 5%: Diagnostic for diabetesGoals for Glycemic Control in Diabetes (ADA 2018)<7.0%: A1c target for non adults with diabetes. More or less stringent glycemic goals may be appropriate for individual patients.<7.5%: A1c target for children and adolescents with type I diabetes. A lower goal is reasonable if it can be achieved without excessive hypoglycemia. Hemoglobin April 5.34 % <5.7%: MAIN LAB, [address] A1c Percent 2018 Normal5.7%-6.4% . [facility] [place] [address] 10:15am : Prediabetes>=6. 5%: Diagnostic for diabetesGoals for Glycemic Control in Diabetes (ADA 2018)<7.0%: A1c target for non adults with diabetes. More or less stringent glycemic goals may be appropriate for individual patients.<7.5%: A1c target for children and adolescents with type I diabetes. A lower goal is reasonable if it can be achieved without excessive hypoglycemia. Estimated September 114 mg/dL MAIN LAB, [address] [facility] Average 2019 [place] [address] Glucose 10:38am mg/dL Estimated April 107 mg/dL MAIN LAB, [address] [facility] Average 2018 [place] [address] Glucose 10:15am mg/dL Ferritin September 16.1 ng/mL The results of MAIN LAB, [address] [place] [address] [place] [address] 10:38am be falsely decreased in patients who consume Biotin. Ferritin April 10.6 ng/mL The results of MAIN LAB, [address] [facility] [address] [place] [address] 10:15am be falsely decreased in patients who consume Biotin. Lyme Disease March 04, Negative Negative New [address] [place] [address] M EDICAL Antibodies 2020 generation LABORATO DANIELA Value 11:29am assay in use date 03/03/2020Test performed or referred by[address] [address] Anaplasma March 04, <1:64 JANUARY O MEDICAL phagocytophi 2020 titer ----ADDITIONAL [facility] la IgG Ab 11:29am INFORMATION---- This test was developed using an analyte specific reagent.Its performance characteristics were determined by [facility] in a manner consistent with CLIA requirements. Thistest has not been cleared or approved by the U.S. Food andDrug Administration. Ehrlichia March 04, <1:64 JANUARY O MEDICAL chaffeensis 2020 titer ----ADDITIONAL [facility]IES IgG Antibody 11:29am INFORMATION---- This test was developed using an analyte specific reagent.Its performance characteristics were determined by [facility] in a manner consistent with CLIA requirements. Thistest has not been cleared or approved by the U.S. Food andDrug Administration. Lyme Disease March 04, Negative Negative No evidence of M [facility] Serology 2019 antibodies to LABORA TORIES 11:29am B. burgdorferi detected.False negative results may occur in recently infectedpatient s (<=2 weeks) due to low or undetectable antibodylevels to B. burgdorferi. If recent exposure is suspected,a second sample should be collected and tested in 2-4 weeks.Test Performed by:[facility] [place], [place] [address]Nim Director: Virgilio Hicks M.D. Ph.D.; CLIA# [id number] Babesia March 04, 1:64 JANUARY O MEDICAL microti IgG 2019 titer ----ADD[facility] Antibody 11:29am INFORMATION---- This test was developed using an analyte specific reagent.Its performance characteristics were determined by [facility] in a manner consistent with CLIA requirements. Thistest has not been cleared or approved by the U.S. Food andDrug Administration. Advance Directives Advance Directive Response Recorded Date/Time Does patient have an Advanced Directive? No January 30, 2012 10:45am Do we have a copy on file here at [facility]? No J RooT 2016 12:14pm Pt has a Living Will? No January 30, 2012 10:4 5am Do we have a copy on file here at [facility]? No J RooT 2016 12:14pm Pt has a Power of Occupational Therapy Instructor? No January 29 2 10:45am Do we have a copy on file here at [facility]? No J RooT 2016 12:14pm Chief Complaint and Reason for Visit Chief Complaint [id number] D64.9 insect bite of right shoulde r Encounters Encounter Location(s) Arrival/Admit Date Discharge/Depart Date Provider(s) Departed [facility] May 02, 2019 May 02, 2019 Camron varner Referred Medical 10:15am 10:16am MD [facility] Departed [facility] July 02, 2019 July 02, 2019 JOJO Javed Referred Medical 7:14pm 7:15pm [facility] Departed [facility] October 02, 2019 October 02, 2019 Camron Suarez Referred Medical 6:06pm 6:07MD gagan [facility] Departed [facility] March 04, 2020 March 04, 2020 Camron recinos Referred Medical 6:11pm 6:12pMD jeff [facility] Departed [facility] April 30, 2020 April 30, 2020 Rakan lopez MD Referred Medical 6:11pm 6:12pm Center-Referred Lab Assessments No Assessments Information Available [...] Guarantor BERE EISENBERG Address [address] [place] [id number] Contact Info. Home Phone: Payer Policy Id Coverage Id Subscriber's Subscriber Id Effective E xpiration Name Date Date [place] [id number] BERE EISENBERG [id number] [place] MEDICARE PART A AND B COVERAGE SELF PAY Self N/A [place] MEDICAID [id number] BERE EISENBERG [id number] June 28 (DO NOT USE) 2015 Social History Smoking Status Status Date of [...]
--- OUTSIDE RECORDS SUMMARY | 2022-07-21 01:16 | XMS_ITS | Continuity of Care Document ---
:1955 Author Organization [facility] Address [address] [place] [address] Care Team Providers Name Role Phone Camron [...] TAB ORAL THREE TIMES October 01, Active Tgkk-Gimgngblx-Nfv A DAY 2018 k Thistle [Liver-Kidney Cleanser] Msghmgxy-Ury-Ldjm- 1 TAB ORAL DAILY October 01, Ac [...] Test Perfor med by: 2018 10:00am THE [address] [address] Total Bilirubin December 26, 2018 1.4 mg/dL [...] Ca 1 TAB ORAL THREE September Active Gqvs-Qlhnvnzgl-R TIMES A 2018 DAY Anipvkbm-Ckg-Zem 1 TAB ORAL DAILY September Active n-Folic-Vit K1 2018 Encounters Encounter Facility Location Admit/Visit Discharge/Departure Atte nding Date Date Provider Departed [facility] December 26, 2018 December 26, 2018 10:28a [facility]ron Dep[facility] October 08, October 08, [facility] 9:43[facility] October 01October 01, 2018 [facility] Surgical Day [facility] Services 2018 9:04am 11:58am [facility] 7[facility]51[facility] 7:[facility]pm [facility] July 16July 16, 2018 [facility] Department 2017 5:32pm 7:02pm [facility] April 30April 30, 2018 2:04pm [facility] April 04, 2018 April 04, 2018 [facility] 7[facility] March 18, 2018 March 18, 2018 2:41 pm [facility] 2:06pm Awa [facility] January 01January 01, 2018 [facility] 2017 12:11pm 12:12pm [facility] Functional Status No known functional status. Immunizations No known immunizations. Payers Payer Name Policy Type Covered Covered Relationship Subscriber Sub scriber Id Green Party Green Party Id MEDICAID OF Medicaid [facility] [id number] Self/Same as [facility] [id number] [place] Patient SELF [place]Y Personal [place] Medicaid [facility] [id number] Self/Same as [facility] [id number] (DO NOT USE) Patient Plan of Care [...]
--- OUTSIDE RECORDS SUMMARY | 2022-07-21 01:16 | XMS_ITS | Continuity of Care Document ---
:1955 Author Organization [facility] Address [address] [place] [address] Phone Care Team Providers Name Role Phone [...] Date Hydrochlorothi Discontinu 1 CAP PO DAILY February r azide/Triamter ed , , (HYDR 2011 [...] T dixie 1 tablet ed TIMES , , by mouth A DAY 2015 2017 every 8 hours 10:11am 2:18pm (6AM, 2PM, 10PM) Phenobarbital Discontinu 16.2 MG PO TWICE January T dixie 1/2 ed A DAY , tablet by 2015 2017 mouth twice 6:24pm 2:18pm daily, first dose 02/03/16 10AM Ferrous Active 325 MG PO DAILY September Sulfate 2018 9:27am Triamterene-Hy Active 1 TAB PO DAILY September drochlorothiaz , id 2018 9:27am Ca Active 1 TAB PO THREE September Phos-Cranberry TIMES , -Milk Thistle A DAY 2018 (Liver-Kidney 9:27am Cleanser) Capsule Hnmipyfd-Wsa-W Active 1 TAB PO DAILY September uen-Iycxh-Cnj , (Centrum 2019 Chewables) 8 9:27am mg-400 mcg- [...] Result Comment Performing Range Site White Blood June 3.55 4.8-10.8 MAIN LAB , [address] Count 2018 1000/mm3 [facility] [address] 10:55am White Blood April 4.81 4.8-10.8 MAIN LAB , [address] Count 2018 1000/mm3 [facility] [address] 10:15am White Blood September 3.62 4.8-10.8 MAIN LAB , [facility] Count 2019 1000/mm3 [facility] [address] 10:38am Red Blood June 4.66 M/mm3 4.70-6.00 MAIN LAB, [address] [facility] Count 2018 [facility] [address] 10:55am Red Blood April 3.80 M/mm3 4.70-6.00 MAIN LAB, [facility] Count 2018 [facility] [address] 10:15am Red Blood Lena 4.94 M/mm3 4.70-6.00 MAIN LAB, [address] [place] [address] Count 2019 [place] [address] 10:38am Hemoglobin April 8.5 g/dL 14.0-18.0 MAIN LAB, [address] [place] [address] 2018 [place] [address] 10:15am Hemoglobin September 10.3 g/dL 14.0-18.0 MAIN LAB, [address] [place] [address] 2019 [place] [address] 10:38am Hemoglobin June 9.0 g/dL 14.0-18.0 MAIN LAB, [address] [place] [address] 2018 [place] [address] 10:55am Hematocrit April 29.7 % MAIN LAB, [address] [place] [address] 2018 [place] [address] 10:15am Hematocrit June 32.7 % MAIN LAB, [address] [place] [address] 2018 [place] [address] 10:55am Hematocrit September 36.5 % MAIN LAB, [address] [place] [address] 2019 [place] [address] 10:38am Mean June 70.2 fL 80.0-94.0 MAIN LAB, [address] [place] [address] Corpuscular 2018 [facility] [place] [address] Volume 10:55am Mean April 78.2 fL 80.0-94.0 MAIN LAB, [address] [place] [address] Corpuscular 2018 [place] [address] Volume 10:15am Mean September 73.9 fL 80.0-94.0 MAIN LAB, [address] [place] [address] Corpuscular 2019 [place] [address] Volume 10:38am Mean April 22.4 pg 27-31 MAIN LAB, [address] [place] [address] Corpuscular 2018 [place] [address] Hemoglobin 10:15am Mean June 19.3 pg 27-31 MAIN LAB, [address] [place] [address] Corpuscular 2018 [place] [address] Hemoglobin 10:55am Mean September 20.9 pg 27-31 MAIN LAB, [address] [place] [address] Corpuscular 2019 [place] [address] Hemoglobin 10:38am Mean June 27.5 g/dL 33-37 MAIN LAB, [address] [place] [address] Corpuscular 2018 [place] [address] Hemoglobin 10:55am Concent Mean April 28.6 g/dL MAIN LAB, [address] [place] [address] Corpuscular 2018 [place] [address] Hemoglobin 10:15am Concent Mean September 28.2 g/dL MAIN LAB, [address] [place] [address] Corpuscular 2019 [place] [address] Hemoglobin 10:38am Concent Red Cell April 22.1 % 11.5-14.5 MAIN LAB, [address] [place] [address] Distribution 2018 [facility] [place] [place] [address] Width 10:15am Red Cell June 21.7 % 11.5-14.5 MAIN LAB, [address] [place] [address] Distribution 2018 [facility] [place] [place] [address] Width 10:55am Red Cell September 20.1 % 11.5-14.5 MAIN LAB, [address] [place] [address] Distribution 2019 [facility] [place] [place] [address] Width 10:38am Platelet June 104 140-440 MAIN LAB, [address] [place] [address] Count 2018 1000/mm3 [place] [address] 10:55am Platelet September 118 140-440 MAIN LAB, [address] [place] [address] Count 2019 1000/mm3 [place] [address] 10:38am Platelet April 143 140-440 MAIN LAB, [address] [place] [address] Count 2018 1000/mm3 [place] [address] 10:15am Mean Platelet June 10.4 fL 7.4-10.4 MAIN L AB, [address] [place] [address] Volume 2018 [place] [address] 10:55am Mean Platelet September 10.3 fL 7.4-10.4 MAIN L AB, [address] [place] [address] Volume 2019 [place] [address] 10:38am Mean Platelet April 11.5 fL 7.4-10.4 MAIN L AB, [address] [place] [address] Volume 2018 [place] [address] 10:15am Neutrophils June 52.9 % 40.0-72.0 MAIN LAB , [address] [place] [address] (%) (Auto) 2018 . [place] [address] 10:55am Lymphocytes June 22.5 % 17-45 MAIN LAB , [address] [place] [address] (%) (Auto) 2018 [place] [address] 10:55am Monocytes (%) June 17.2 % 3-11 MAIN L AB, [address] [place] [address] (Auto) 2018 [place] [address] 10:55am Eosinophils October 5.1 % 0-3 MAIN LAB , [address] [place] [address] (%) (Auto) 2018 [place] [address] 10:55am Basophils (%) October 2.0 % 0-1 MAIN L AB, [address] [place] [address] (Auto) 2018 [place] [address] 10:55am Immature October 0.3 % 0-1 MAIN LAB, [address] [place] [address] Granulocyte % 2018 [place] [address] (Auto) 10:55am Neutrophils # June 1.88 1.4-6.5 MAIN L AB, [address] [place] [address] (Auto) 2018 1000/mm3 [place] [address] 10:55am Lymphocytes # June 0.80 1.2-3.4 MAIN L AB, [address] [place] [address] (Auto) 2018 1000/mm3 [place] [address] 10:55am Monocytes # June 0.61 0.0-0.8 MAIN LAB , [address] [place] [address] (Auto) 2018 1000/mm3 [place] [address] 10:55am Eosinophils # June 0.18 0.0-0.7 MAIN L AB, [address] [place] [address] (Auto) 2018 1000/mm3 [place] [address] 10:55am Basophils # June 0.07 0.0-0.1 MAIN LAB , [address] [place] [address] (Auto) 2018 1000/mm3 [place] [address] 10:55am Absolute October 0.0 0-1 MAIN LAB, [address] [place] [address] Immature 2018 [place] [address] Granulocyte 10:55am (auto Differential June Automated MAIN LA B, [address] [place] [address] Method 2018 [place] [address] 10:55am Differential Lena See Microcytic MAIN L AB, [address] [place] [address] Pathologist's 2019 [place] [address] Review 10:38am anemia,suggest vamshi of iron deficiency. Anupam Stinson MD 10/03/19 Prothrombin September 12.1 9.6-11.2 MAIN LAB , [facility] Time 2019 SECONDS [facility] [address] 10:38am Prothromb September 1.2 2.0-3.0 INR value MAIN LAB, [address] [place] [address] Time 2019 valid only on . [place] [address] International 10:38am patients on Ratio stabilized warfarin therapy. The recommended therapeutic range for warfarin (Coumadin) for most clinical indications is an INR of 2.0-3.0. An INR of 2.5-3.5 is recommended for patients with mechanical heart valves. Sodium Level April 135 mmol/L 137-145 MAIN L AB, [facility] 2018 [facility] [address] 10:15am Sodium Level September 139 mmol/L 137-145 MAIN L AB, [address] [place] [address] 2019 [facility] [address] 10:38am Potassium April 3.4 mmol/L 3.6-5.0 MAIN LAB, [address] [place] [address] 2018 [facility] [address] 10:15am Potassium September 3.6 mmol/L 3.6-5.0 MAIN LAB, [address] [place] [address] 2019 [place] [address] 10:38am Chloride September 103 mmol/L 98-107 MAIN LAB, [address] [place] [address] Level 2019 [facility] [address] 10:38am Chloride April 102 mmol/L 98-107 MAIN LAB, [address] [place] [address] Level 2018 [facility] [address] 10:15am Carbon September 28 mmol/L 22-30 MAIN LAB, [address] [place] [address] Dioxide Level 2019 [place] [address] 10:38am Carbon April 25 mmol/L -30 MAIN LAB, [address] [place] [address] Dioxide Level 2018 [place] [address] 10:15am Anion Gap October 0104-08 MAIN LAB, [address] [place] [address] 2019 [facility] [address] 10:38am Anion Gap May 0104-08 MAIN LAB, [address] [place] [address] 2018 [facility] [address] 10:15am Blood Urea September 8 mg/dL 05-19 MAIN LAB, [address] [place] [address] Nitrogen 2019 [place] [address] 10:38am Blood Urea April 7 mg/dL 05-19 MAIN LAB, [address] [place] [address] Nitrogen 2018 [place] [address] 10:15am Creatinine April 0.73 mg/dL 0.66-1.25 MAIN LAB , [address] [place] [address] 2018 [place] [address] 10:15am Creatinine September 0.64 mg/dL 0.66-1.25 MAIN LAB , [address] [place] [address] 2019 [place] [address] 10:38am Glomerular April > 60 >60.0 MAIN LAB, [address] [place] [address] Filtration 2018 mL/[place] [address] Rate Calc 10:15am Glomerular Lena > 60 >60.0 MAIN LAB, [address] [place] [address] Filtration 2019 mL/[place] . [place] [facility] [place] [address] Rate Calc 10:38am Glucose Level September 103 mg/dL 70-100 MAIN L AB, [address] [place] [address] 2019 [place] [address] 10:38am Glucose Level April 93 mg/dL 70-100 MAIN L AB, [address] [place] [address] 2018 [place] [address] 10:15am Calcium Level September 8.2 mg/dL 8.4-10.2 MAIN L AB, [address] [place] [address] 2019 [place] [address] 10:38am Calcium Level April 8.0 mg/dL 8.4-10.2 MAIN L AB, [address] [place] [address] 2018 [place] [address] 10:15am Calcium September 8.7 mg/dL 8.4-10.2 MAIN LAB, [address] [place] [address] Adjusted for 2019 [facility] [place] [address] Albumin 10:38am Calcium April 9.1 mg/dL 8.4-10.2 MAIN LAB, [address] [place] [address] Adjusted for 2018 . [place] [address] Albumin 10:15am Transferrin April 289 mg/dL 201-352 Test performed January MEDICAL 2018 or referred LABORATO DANIELA 10:15am [address] [address] Transferrin September 376 mg/dL 201-352 Test performed [facility] 2019 or referred LABORATO DANIELA 10:38am byThe [address] [address] Total April 1.6 mg/dL 0.2-1.3 MAIN LAB, [address] [facility] Bilirubin 2018 [facility] [address] 10:15am Total September 1.0 mg/dL 0.2-1.3 MAIN LAB, [address] [facility] Bilirubin 2019 [place] [address] 10:38am Aspartate September 83 U/L MAIN LAB, [facility] Amino Transf 2019 [facility] [place] [address] (AST/SGOT) 10:38am Aspartate April 95 U/L MAIN LAB, [address] [place] [address] Amino Transf 2018 [facility] [place] [address] (AST/SGOT) 10:15am Alanine September 42 U/L MAIN LAB, [address] [place] [address] Aminotransfer 2019 [facility] [address] ase 10:38am (ALT/SGPT) Alanine April 66 U/L MAIN LAB, [address] [place] [address] Aminotransfer 2018 [place] [address] ase 10:15am (ALT/SGPT) Total Protein September 8.4 g/dL 6.3-8.2 MAIN L AB, [address] [place] [address] 2019 [facility] [address] 10:38am Total Protein April 6.9 g/dL 6.3-8.2 MAIN L AB, [address] [place] [address] 2018 [facility] [address] 10:15am Albumin April 2.9 g/dL 3.5-5.0 MAIN LAB, [address] [place] [address] 2018 [facility] [address] 10:15am Albumin September 3.7 g/dL 3.5-5.0 MAIN LAB, [address] [place] [address] 2019 [facility] [address] 10:38am Alkaline April 135 U/L 38-126 MAIN LAB, [address] [place] [address] Phosphatase 2018 [facility] [place] [address] 10:15am Alkaline September 118 U/L 38-126 MAIN LAB, [address] [place] [address] Phosphatase 2019 [place] [address] 10:38am Thyroid September 4.87 mlU/L 0.47-4.68 TSH cascade is MAIN LAB, [address] [facility] Stimulating [address] [facility] [place] [address] Hormone (TSH) 10:38am recommended for patients in which pituitary or hypothalmic disorders are suspected. Thyroid April 7.15 mlU/L 0.47-4.68 TSH cascade is MAIN LAB, [address] Stimulating [address] [facility] [place] [address] Hormone (TSH) 10:15am recommended for patients in which pituitary or hypothalmic disorders are suspected. Free April 1.25 ng/dL 0.78-2.19 MAIN LAB, [address] Thyroxine 2018 [place] [address] 10:15am Free September 1.16 ng/dL 0.78-2.19 MAIN LAB, [address] [facility] Thyroxine 2019 [place] [address] 10:38am Hemoglobin April 5.34 % <5.7%: MAIN LAB, [address] A1c Percent 2018 Normal5.7%-6.4 [place] [address] 10:15am %: Prediabetes>=6 .5%: Diagnostic for diabetesGoals for Glycemic Control in Diabetes (ADA 2018)<7.0%: A1c target for non adults with diabetes. More or less stringent glycemic goals may be appropriate for individual patients.<7.5% : A1c target for children and adolescents with type I diabetes. A lower goal is reasonable if it can be achieved without excessive hypoglycemia. Hemoglobin September 5.61 % <5.7 <5.7%: MAIN LAB, [address] A1c Percent 2019 Normal5.7%-6.4 [place] [address] 10:38am %: Prediabetes>=6 .5%: Diagnostic for diabetesGoals for Glycemic Control in Diabetes (ADA 2018)<7.0%: A1c target for non adults with diabetes. More or less stringent glycemic goals may be appropriate for individual patients.<7.5% : A1c target for children and adolescents with type I diabetes. A lower goal is reasonable if it can be achieved without excessive hypoglycemia. Estimated April 107 mg/dL MAIN LAB, [address] [facility] Average 2018 [place] [address] Glucose mg/dL 10:15am Estimated September 114 mg/dL MAIN LAB, [address] [facility] Average 2019 [place] [address] Glucose mg/dL 10:38am Ferritin September 16.1 ng/mL The results of MAIN LAB, [address] [place] [address] [place] [address] 10:38am be falsely decreased in patients who consume Biotin. Ferritin April 10.6 ng/mL The results of MAIN LAB, [address] [facility] [address] [place] [address] 10:15am be falsely decreased in patients who consume Biotin. Advance Directives Advance Directive Response Recorded Date/Time Does patient have an Advanced Directive? No January 30, 2012 10:45am Do we have a copy on file here at [facility]? No J une 2016 12:14pm Pt has a Living Will? No January 30, 2012 10:4 5am Do we have a copy on file here at [facility]? No J une 2016 12:14pm Pt has a Power of Internal Audit Manager? No January 29 2 10:45am Do we have a copy on file here at [facility]? No J une 2016 12:14pm Chief Complaint and Reason for Visit Chief Complaint [id number] D64.9 Encounters Encounter Location(s) Arrival/Admit Date Discharge/Depart Date Provider(s) Departed [facility] May 02, 2019 May 02, 2019 Camron varner Referred Medical 10:15am 10:16am MD [facility] Departed [facility] July 02, 2019 July 02, 2019 JOJO Javed Referred Medical 7:14pm 7:15pm [facility] Departed [facility] October 02, 2019 October 02, 2019 Camron Suarez Referred Medical 6:06pm 6:07pm MD [facility] Departed [facility] March 04, 2020 March 04, 2020 Camron recinos Referred Medical 6:11pm 6:12pm MD [facility] Assessments No Assessments Information Available [...] Guarantor BERE EISENBERG Address [address] [place] [address] Contact Info. Home Phone: Payer Policy Id Coverage Id Subscriber's Subscriber Id Effective E xpiration Name Date [place] [id number] BERE EISENBERG [id number] [place] SELF PAY Self N/A [place] MEDICAID [id number] BERE EISENBERG [id number] June 28 (DO NOT USE) 2015 Social [...] 2:18pm Substance/Street Drug Use No October 01 019 9:39am Smoking Status Former smoker October 01, 2018 9: 39am Assigned Sex Male
--- OUTSIDE RECORDS SUMMARY | 2022-07-21 01:16 | XMS_ITS | Continuity of Care Document ---
:1955 Author Organization [facility] Address [address] [place] [address] Phone Care Team Providers Name Role Phone Camron Suarez Primary Care Provider Camron Suarez Attending Provider Allergies, Adverse Reactions, Alerts Allergen Type Severity Reaction Last Updated Verified Status aspirin Adverse Unknown bleeding September 03, Yes Activ e Reaction 2014 1:00am ibuprofen Adverse Unknown flank pain May Active Reaction 2015 12:00am acetaminophen Adverse makes sides October 01, Yes A ctive Reaction ache 2018 10:24am Social History Smoking Status Status Start Date End Date Date of Observat ion Ex-smoker (finding) September 24, 1987 September 24, 2000 October 01, 2018 9:39am Observation Status Observation Response Date of Response Alcohol Heavy February 26, 2016 1:28a m Living Situation With Family January 30, 2016 9:21am Alcohol Use Yes October 01, 2018 10 :39am alcohol intake frequency 0-2 drinks per day March 18, 2018 2:18pm Substance/Street Drug Use No October 01 019 10:39am Smoking Status Former smoker October 01, 2018 10 :39am Additional Data Assigned Sex Male Family History Relationship Condition Age at Onset Recorded Date/Ti me Parent Family history non-contributory Unknown Cardiac disease Unknown Parent Cardiac disease Unknown Not Specified Cardiac disease Unknown Problems Active Problems Medical Problem Onset Date [...] Status Tear of right biceps muscle Resolved Medications Medication Status Dose Units Route Directions Qty Days Start End Ins tructions Date Date Hydrochloroth Discontin 1 CAP PO DAILY February iazide/Triamt ued 7th, r er (HYDR 2011, [facility] 12:00am 2017 DE/TRIAM 25 5:50pm mg-37.5 mg) 1 CAP Cap Pantoprazole Discontin 40 MG PO TWICE A DAY January obe Take 1 tablet (Protonix) 40 ued 10th, r twice daily MG 2015, tablet,delaye 12:00am 2017 d release 5:49pm (DR/EC) Phenobarbital Discontin 16.2 MG PO TWICE A DAY 23 January Ma y Take 1/2 ued , , tablet by 2015 2015 mouth twice 12:00am 6:24pm daily, firs t dose Phenobarbital Discontin 32.4 MG PO THREE TIMES 26 January Ju ne Take 1 tablet ued A DAY , by mouth 2015 2017 every 8 hours 12:00am 2:18pm (6AM, 2PM, 10PM) Phenobarbital Discontin 16.2 MG PO TWICE A DAY 23 January Ju ne Take 1/2 ued , , tablet by 2015 2017 mouth twice 6:24pm 2:18pm daily, first dose 02/03/16 10AM Ferrous Active 325 MG PO DAILY September Sulfate 2018 1:00am Triamterene-H Active 1 TAB PO DAILY September ydrochlorothi azid 2018 1:00am Ca Active 1 TAB PO THREE TIMES September Phos-Cranberr A DAY , y-Milk 2019 Thistle 1:00am (Liver-Kidney Cleanser) Capsule Multivit-Min- Active 1 TAB PO DAILY September Ywmm-Ulebk-Mn , t K1 (Centrum 2019 Chewables) 8 1:00am mg-400 mcg- 10 mcg Tablet,Chewab le Relevant Diagnostic Tests and/or Laboratory Data Laboratory Results Test Date/Time Result Interpretation Reference Result Perfo rming Range Comment Site White Blood Count April 19, 3.81 4.8-10.8 M AIN LAB 2021 1000/mm [facility] 2:12pm 3 [address] [facility] [address] Red Blood Count April 19, 4.23 4.70-6.00 JUSTINE N LAB 2021 M/mm3 [facility] 2:12pm [address] [facility] [address] Hemoglobin April 19, 14.6 14.0-18.0 MAIN LAB 2021 g/dL [facility] 2:12pm [address] [facility] [address] Hematocrit April 19, 42.3 % 42-52 MAIN LAB 2021 [facility] 2:12pm [address] [facility] [address] Mean Corpuscular April 19, 100.0 80.0-94.0 MA IN LAB Volume 2021 fL [facility] 2:12pm [address] [facility] [address] Mean Corpuscular April 19, 34.5 pg 27-31 MA IN LAB Hemoglobin 2021 [facility] 2:12pm [address] [facility] [address] Mean Corpuscular April 19, 34.5 33-37 MA IN LAB Hemoglobin Concent 2021 g/dL N [facility] 2:12pm [address] [facility] [address] Red Cell April 19, 13.0 % 11.5-14.5 MAIN LAB Distribution Width 2021 N [facility] 2:12pm [address] [facility] [address] Platelet Count April 19, 113 140-440 MAIN LAB 2021 1000/mm [facility] 2:12pm 3 [address] [facility] [address] Mean Platelet April 19, 11.9 fL 7.4-10.4 MAIN LAB Volume 2021 [facility] 2:12pm [address] [facility] [address] Sodium Level April 19, 139 137-145 MAIN L AB 2021 mmol/L [facility] 2:12pm [address] [facility] [address] Potassium Level April 19, 3.8 3.6-5.0 JUSTINE N LAB 2021 mmol/L [facility] 2:12pm [address] [facility] [address] Chloride Level April 19, 102 98-107 MAIN LAB 2021 mmol/L [facility] 2:12pm [address] [facility] [address] Carbon Dioxide April 19, 22 22-30 MAIN LAB Level 2 mmol/L [facility] 2:12pm [address] [facility] [address] Anion Gap April 19, 15 7-16 MAIN LAB 2021 [facility] 2:12pm [address] [facility] [address] Blood Urea April 19, 8 mg/dL 8-26 MAIN LAB Nitrogen 2021 [facility] 2:12pm [address] [facility] [address] Creatinine April 19, 0.65 0.66-1.25 MAIN LAB 2021 mg/dL [facility] 2:12pm [address] [facility] [address] Glomerular April 19, > 60 >60.0 MAIN LAB Filtration Rate 2 mL/min [facility] Calc 2:12pm [address] [facility] [address] Glucose Level April 19, 103 70-100 MAIN LAB 2021 mg/dL [facility] 2:12pm [address] [facility] [address] Calcium Level April 19, 9.2 8.4-10.2 MAIN LAB 2021 mg/dL [facility] 2:12pm [address] [facility] [address] Calcium Adjusted April 19, 9.4 8.4-10.2 MA IN LAB for Albumin 2 mg/dL [facility] 2:12pm [address] [facility] [address] Total Bilirubin April 19, 0.8 0.2-1.3 JUSTINE N LAB 2021 mg/dL [facility] 2:12pm [address] [facility] [address] Aspartate Amino April 19, 77 U/L 17-59 JUSTINE N LAB [facility]f [facility]SGOT[facility] [address] [facility] [address] Alanine April 19, 48 U/L <50 As of 01/23/20, the Reference Range for ALT/SGPT for adult patients has been updated. MAIN LAB Aminotransferase 2021 The Refe rence Range for ALT/SGPT has not been established for patients <18 years of age. [facility] (ALT/SGPT) 2:12pm [address] [facility] [address] Total Protein April 19, 8.0 6.3-8.2 MAIN LAB 2021 g/dL [facility] 2:12pm [address] [facility] [address] Albumin April 19, 4.1 3.5-5.0 MAIN LAB 2 g/dL [facility] 2:12pm [address] [facility] [address] Alkaline April 19, 117 U/L 38-126 MAIN LAB Phosphatase 2021 [facility] 2:12pm [address] [facility] [address] Thyroid April 19, 4.30 0.47-4.68 TSH cascade MAIN LA B Stimulating 2021 mlU/L is not [facility] Hormone (TSH) 2:12pm recommended 133 [facility] for patients [facility] [address] in which pituitary or hypothalmic disorders are suspected. Ferritin April 19, 213 22-322 The results MAIN LA B 2021 ng/mL of this [facility] 2:12pm assay can be 133 [facility] falsely [facility] [address] decreased in patients who consume Biotin. Advance Directives Advance Directive Response Recorded Date/Time Does patient have an Advanced Directive? No January 30, 2012 10:45am Do we have a copy on file here at [facility]? No J une 2016 12:14pm Pt has a Living Will? No January 30, 2012 10:4 5am Do we have a copy on file here at [facility]? No J une 2016 12:14pm Pt has a Power of Phone Representative? No January 29 2 10:45am Do we have a copy on file here at [facility]? No J une 2016 12:14pm Insurance Providers Guarantor BERE EISENBERG Address [address] [place] [id number] Contact Info. Home Phone: Payer Policy Id Coverage Id Subscriber's Subscriber Id Effective E xpiration Name Date Date [place]urchard [id number] BERE EISENBERG [id number] [employer] MEDICARE [id number] FELIXPONCHO EISENBERG [id number] PART A AND B 41 COVERAGE SELF PAY Self N/A [place] MEDICAID [id number] BERE EISENBERG [id number] June 28 (DO NOT USE) 2015 Encounters Encounter Location(s) Arrival/Admit Date Discharge/Depart Date Provider(s) Departed [facility] April 19, 2022 April 19, 2022 Camron recinos Referred Medical 6:36pm 6:37pm MD [facility]
--- OUTSIDE RECORDS SUMMARY | 2022-07-21 01:17 | XMS_ITS | Encounter Summary ---
:1955 Author Organization [facility] [place] [address] Care Team Providers Name Role Phone Camron Suarez MD Primary Care Provider Encounter Details Date Type Department Care Team Description 06/17/2021 Laboratory Appointment Lab 3L Mindy Hernandez HCC (hepatocellular carcinoma); Alcoholic cirrhosis, unspeci [place] [id number] Social History Tobacco Use Types Packs/Day Years Used Date Former Smoker Cigarettes, Pipe 0.5 13 Quit: 2000 Smokeless Tobacco: Never Used Alcohol Use Standard Drinks/Week Comments Yes 21 (1 standard drink = 0.6 oz pure half a fith of wiskey daily last alcohol) drink 04-19-19; 3-4 n on alcohol beers daily Alcohol Habits Answer Date Recorded How often do you have a drink 4 or more times a week 019 containing alcohol? How many drinks containing alcohol do 3 or 4 you have on a typical day when you are drinking? How often do you have six or more Daily or almost daily 03/25 drinks on one occasion? Comment: half a fith of wiskey daily last 019 drink 04-19-19; 3-4 non alcohol beers daily Sex Assigned at Date Recorded Not on file documented as of this encounter Plan of Treatment Scheduled Procedures Name Priority Associated Diagnoses Date/Time EGD, UPPER GI ENDOSCOPY Alcoholic cirrhosis, uns pecified whether ascites present Portal hypertension documented as of this encounter Goals Goal Patient Goal Associated Recent Patient-Stated? Author Type Problems Progress DH Home Medication Patient On track No Elier , Daniel and Facing (03/15/2020 Milli Carpenter, Understanding Action Plan 12:42 PM [facility] EDT) Note: Formatting of this note might be d ifferent from the original. SVR12 through treatment with Epclusa x 2 4 weeks documented as of this encounter Procedures Procedure Name Priority Date/Time Associated Comments Diagnosis HEMOGRAM Routine 06/17/2021 3:20 PM HCC (hepatocellular Re sults for this EDT carcinoma) procedure are in Alcoholic the results cirrhosis, section. unspecified whether ascites present DIFFERENTIAL, Routine 06/17/2021 3:20 PM HCC (hepatocellular R esults for this AUTOMATED EDT carcinoma) procedure are in Alcoholic the results cirrhosis, section. unspecified whether ascites present HC ALPHA FETOPROTEIN Routine 06/17/2021 3:20 PM HCC (hepatocel lular Results for this TUMOR MARKER EDT carcinoma) procedure are in Alcoholic the results cirrhosis, section. unspecified whether ascites present HC VENIPUNCTURE Routine 06/17/2021 3:20 PM HCC (hepatocellular Results for this EDT carcinoma) procedure are in Alcoholic the results cirrhosis, section. unspecified whether ascites present HC CBC,PLT & AUTO DIFF Routine 06/17/2021 3:20 PM HCC (hepatoc ellular EDT carcinoma) Alcoholic cirrhosis, unspecified whether ascites present COMPREHENSIVE Routine 06/17/2021 3:20 PM HCC (hepatocellular R esults for this METABOLIC PANEL EDT carcinoma) procedure are in (NON-FASTING) Alcoholic the results cirrhosis, section. unspecified whether ascites present documented in this encounter Results Differential, Automated (06/17/2021 3:20 PM EDT) P athologist Signature Neutrophils % 45.0 % [facility] Neutr Abs (ANC) 1.87 1.70 - [facility] [address] [facility] x10(3)/[facility] LABORATORY Lymphocytes % 38.1 % [facility] Lymphocytes Abs 1.6 0.9 - 3.2 [facility] x10(3)/[facility] LABORATORY Monocytes % 12.3 % [facility] Monocyte Abs 0.5 0.3 - 0.9 [facility] x10(3)/[facility] LABORATORY Eosinophils % 2.7 % [facility] Eosinophils Abs 0.1 0.0 - 0.4 [facility] x10(3)/[facility] LABORATORY Basophils % 1.7 % [facility] Basophils Abs 0.1 0.0 - 0.1 [facility] x10(3)/[facility] LABORATORY Immature Gran % 0.20 % [facility] Comment: Immature granulocytes(IG's)percentage an d absolute count will include metamyelocytes, myelocytes, and promyelo cytes. Blood smears from CBCs yielding IG's will be scanned manually for concor danmariam. If this scan disagrees with the automated IG or if promyelocytes are not ed, a manual differential will be performed. Haily Gran Abs 0.01 0.00 - 0.04 x10(3)/[facility] Specimen Anatomical Collection Method Collection Time Receive d Time (Source) Location / / Volume Laterality Blood 06/17/2021 3:20 PM 3:40 EDT PM EDT Resulting Agency Comment Spec In Lab Mehdi KESSLER HEMATOLOGY ORDERABLES Performing Organization Address City/State/[place] [address] (ABNORMAL) Hemogram (06/17/2021 3:20 PM EDT) Analysis Performed At Patho logist Time Signature WBC 4.2 4.0 - 9.5 [facility] x10(3)/[facility] LABORATORY RBC 5.24 4.58 - [facility] 5.54 [facility] x10(6)/[facility] LABORATORY Hemoglobin 16.4 13.7 - [facility] g/dL [facility] Hematocrit 48.4 40.5 - [facility] 48.5 % [facility] MCV 92.4 82.9 - [facility] 93.1 [facility] LABORATORY MCH 31.3 27.5 - [facility] 32.1 pg [facility] MCHC 33.9 32.0 - [facility] 35.7 g/dL [facility] Platelets 104 (L) 145 - 357 [facility] x10(3)/[facility] LABORATORY RDWSD 50.1 (H) 36.0 - [facility] 45.0 [facility] LABORATORY RDWCV 14.6 (H) 11.4 - [facility] 13.8 % [facility] MPV 11.3 7.6 - 12.9 [facility] LABORATORY nRBC % Auto 0.0 % [facility] nRBC Abs Auto 0.000 0.000 - [facility] [address] [facility] x10(3)/[facility] LABORATORY Specimen Anatomical Collection Method Collection Time Receive d Time (Source) Location / / Volume Laterality Blood 06/17/2021 3:20 PM 3:40 EDT PM EDT Resulting Agency Comment Spec In Lab Mehdi KESSLER HEMATOLOGY ORDERABLES Performing Organization Address City/State/[place] [address] (ABNORMAL) Comprehensive metabolic panel (non-fasting) (06/17/2021 3:20 PM EDT) P athologist Signature Glucose Lvl 85 65 - 199 [facility] mg/dL [facility] Comment: Diabetes: >=200 mg/dL plus symp toms BUN 10 10 - 20 mg/dL [facility] Creatinine 0.78 (L) 0.80 - 1.50 mg/dL [facility] Sodium 136 135 - 145 mmol/L [facility] Potassium 3.9 3.5 - 5.0 mmol/L [facility] Comment: Please note: ??Patients with WBC >100,00 0 may have falsely elevated Potassium levels. ??For accurate Potassium quantif ication in these patients send serum separator tube (gold top) for subsequent determinations. ??Contact the Clinical Chemistry Laboratory if there are any qu estions. Chloride 102 98 - 107 mmol/L [facility] CO2 22 22 - 31 mmol/L [facility] Anion Gap 12 5 - 15 mmol/L [facility] Calcium 9.2 8.5 - 10.5 mg/dL [facility] Total Protein 8.6 (H) 6.1 - 8.0 g/dL [facility] Albumin 4.2 3.2 - 5.2 g/dL [facility] AST 99 (H) 0 - 39 unit/L [facility] ALT 62 (H) 0 - 55 unit/L [facility] Alk Phos 92 40 - 130 unit/L [facility] Total Bilirubin 1.0 0.2 - 1.3 mg/dL [facility] Estimated GFR 94 >=60 mL/min/1.73 m?? [facility] Comment: This patient? s estimated glomerular filtration rate (eGFR) is between 94 mL/min/1.73 m2 (patients with less muscl e mass per kg body weight) and 109 mL/min/1.73 m2 (patients with more muscl e mass per kg body weight) as determined by the CKD-EPI equation. Asse ssment of eGFR is not appropriate when creatinine concentrations are rapidly ch anging. For clinical decisions where creatinine clearance will affect therapy , a 24-hour urine creatinine clearance may be advised. Assignment of CKD stage 1 - 5 for patien ts with an eGFR near the transition point between stages may be based on cli nical assessment of muscle mass and symptoms in addition to eGFR. Specimen Anatomical Collection Method Collection Time Receive d Time (Source) Location / / Volume Laterality Blood 06/17/2021 3:20 PM 1 3:40 EDT PM EDT Resulting Agency Comment Spec In Lab Jia Bledsoe MD CHEMISTRY ORDERABLES Performing Organization Address City/State/ZIP Code Phon e Number [address] AFP tumor marker (06/17/2021 3:20 PM EDT) P athologist Signature AFP 6.1 <=8.3 ng/mL [facility] Specimen Anatomical Collection Method Collection Time Receive d Time (Source) Location / / Volume Laterality Blood 06/17/2021 3:20 PM 1 3:40 EDT PM EDT Resulting Agency Comment Spec In Lab Jia Bledsoe MD CHEMISTRY ORDERABLES Performing Organization Address City/[facility]/ZIP Code Phon e Number [address] (ABNORMAL) Prothrombin Time (06/17/2021 3:20 PM EDT) P athologist Signature PT 14.1 (H) 9.4 - 12.5 [facility] LABORATORY INR 1.2 [facility] Comment: An INR <2.0 indicates adequate procoagul ant activity for hemostasis in most patients without underlying bleeding dis orders, though the INR may not adequately reflect hemostatic capacity i n patients with liver disease and synthetic impairment. The recommended ta rget INR range for therapeutic anticoagulation is 2.0 ? 3.0 for most applications, though lower and higher ranges may be appropriate depending on c linical circumstances. Specimen Anatomical Collection Method Collection Time Receive d Time (Source) Location / / Volume Laterality Blood 06/17/2021 3:20 PM 3:40 EDT PM EDT Resulting Agency Comment Spec In Lab Jia Bledsoe MD HEMATOLOGY ORDERABLES Performing Organization Address City/State/[place] [address] documented in this encounter Visit Diagnoses Diagnosis HCC (hepatocellular carcinoma) Malignant neoplasm of liver, primary Alcoholic cirrhosis, unspecified whether ascites present documented in this encounter Care Teams Production Operator Relationship Specialty Start Date End Date Camron Suarez MD PCP - General Family Medicine 05/19/19 44 [facility] [address] [place] [phone] documented as of this encounter
--- OUTSIDE RECORDS SUMMARY | 2022-07-21 01:17 | XMS_ITS | Encounter Summary ---
:1955 Author Organization [facility] [place] [address] Care Team Providers Name Role Phone Camron Suarez MD Primary Care Provider Encounter Details Date Type Department Care Team Description 06/01/2020 Telephone Gastroenterology at [facility] [place] [address] Social History Tobacco Use Types Packs/Day Years [...] on file documented as of this encounter Miscellaneous Notes Telephone Encounter - Maia Lopez - 06/01/2020 4:55 PM EDT Call made to patient per in basket request ?? Patient needs to schedule MRI, labs and a follow up with Shahram [facility] ?? LTC patient ?? LVM for patient to call back and schedule ?? documented in this encounter Plan of Treatment Scheduled Procedures Name Priority Associated Diagnoses Date/Time EGD, UPPER GI ENDOSCOPY Alcoholic cirrhosis, uns pecified whether ascites present Portal hypertension documented as of this encounter Goals Goal Patient Goal Associated Recent Patient-Stated? Author Type Problems Progress DH Home Medication Patient On track No Elier , Compliance and Facing (03/15/2020 Milli Carpenter, Understanding Action Plan 12:42 PM [facility] EDT) Note: Formatting of this note might be d ifferent from the original. SVR12 through treatment with Epclusa x 2 4 weeks documented as of this encounter Visit Diagnoses Not on filedocumented in this encounter Care Teams Refrigerating Technician Relationship Specialty Start Date End Date Camron Suarez MD PCP - General Family Medicine 05/19/[address] [place] [phone] documented as of this encounter
--- OUTSIDE RECORDS SUMMARY | 2022-07-21 01:17 | XMS_ITS | Encounter Summary ---
:1955 Author Organization [facility] [place] [address] Care Team Providers Name Role Phone Camron Suarez MD Primary Care Provider Reason for Visit Diagnostic Test (Routine) - Closed Specialty Diagnoses / Procedures Referred By Contact Refer red To Contact Radiology Diagnoses HCC (hepatocellular carcinoma) Mehdi London PA [facility] Rad Mri Procedures MRI Abdomen wwo Contrast (Generic) [place] [address] [place] [address] Referral ID Status Reason Start Date Expiration Date Visits V isits Requested Authorized [id number] Closed Specialty 03/03/2020 09/02/2021 1 1 Service Requested Encounter Details Date Type Department Care Team Description 09/09/2020 Hospital Encounter MRI at [facility] Jia Bledsoe MD Canceled (P-BAD [facility]) [facility] [address] [place] [address] [place], [place] [phone] [facility] Social History Tobacco Use Types Packs/Day Years [...] fith of wiskey daily last 019 drink 7-27-19; 3-4 non alcohol beers daily Sex Assigned at Date Recorded Not on file documented as of this encounter Medications at Time of Discharge Medication Sig Dispensed Refills Start Date End Date acetaminophen Take 1 tablet by 0 08/03/2019 (TYLENOL) 500 mg mouth every 6 hours Tablet as needed for Pain or Fever (Not to exceed 2gm (4 pills) a day). triamterene-hydrochlo Take 1 capsule by 0 rothiazide (DYAZIDE) mouth every 37.5-25 mg Capsule morning. ferrous sulfate 325 Take 1 tablet by 60 tablet 11 01/12/2020 10/17/2020 mg (65 mg iron) mouth 2 times TabletIndications: daily. Iron deficiency anemia, unspecified iron deficiency anemia type bisacodyl (DULCOLAX) Place 1 suppository 60 suppository 3 10/17/2020 10 mg Suppository rectally daily as needed. ketoconazole 0 07/11/2019 10/17/2020 (NIZORAL) 2 % Cream Multivitamin Cmb Take 1 tablet by 0 No.21-Iron-FA 18-400 mouth Daily. mg-mcg Tablet CEROVITE SENIOR 0 05/15/2019 1 Tablet triamcinolone 0 07/02/2019 10/17/2020 (ARISTOCORT) 0.5 % Cream gabapentin Take 1 capsule by 90 capsule 12 07/17/2019 021 (NEURONTIN) 300 mg mouth 3 times CapsuleIndications: daily. Chronic arthralgias of knees and hips folic acid (FOLVITE) Take 1 tablet by 90 tablet 3 9 10/17/2020 1 mg mouth daily. TabletIndications: Decompensated HCV cirrhosis thiamine (THIAMINE) Take 1 tablet by 30 tablet 3 04/22/2019 10/17/2020 mouth daily. documented as of this encounter Plan of [...] Milli Carpenter, Understanding Action Plan 12:42 PM [facility] EDT) Note: Formatting of this note might be d ifferent from the original. SVR12 through treatment with Epclusa x 2 4 weeks documented as of this encounter Visit Diagnoses Not on filedocumented in this encounter Care Teams Water Pollution Scientist Relationship Specialty Start Date End Date Camron Suarez MD PCP - General Family Medicine 05/19/[address] [place] [address] [phone] documented as of this encounter
--- OUTSIDE RECORDS SUMMARY | 2022-07-21 01:17 | XMS_ITS | Encounter Summary ---
:1955 Author Organization [facility] [place] [address] Care Team Providers Name Role Phone Camron Suarez MD Primary Care Provider Encounter Details Date Type Department Care Team Description 08/15/2021 Telephone [place]iology [place] [facility] Zeus Berger MD [facility] [place] [address] RADIOLOGY DEPT [phone] [place], [place] [address] (Wo rk) Social History Tobacco Use Types Packs/Day Years [...] this encounter Miscellaneous Notes Telephone Encounter - Zeus Berger MD - 08/15/2021 5:47 PM EST INTERVENTIONAL RADIOLOGY TELEPHONE NOTE I spoke with the patient by telephone today in regards to his recent cancellation of his planned embolization of his liver tumor. Patient reports that he is unsure if he wants to pursue treatment at this time but in addition to that he has multiple other factors at home (taking care of his mother) as well as worries about exposure to other sick patients in the hospital. I did reiterate that he has a liver cancer which will likely progress if left untreated and could progress beyond the treatment options that I offer offer. It is difficult to say how quickly it samantha progress and when it could metastasize. Left untreated his cancer or drinking could lead to his . The patient understands the risk of not seeking or delaying care but would like to hold off on treatment for now. He is amenable for a follow-up MRI to assess staging in a month or 2 after the holidays. I reiterated that he can change his mind anytime and that he is welcome to reach out to me at anytimewith any questions regarding his care. documented in this encounter Plan of Treatment Scheduled Procedures Name Priority Associated Diagnoses Date/Time EGD, UPPER GI ENDOSCOPY Alcoholic cirrhosis, uns pecified whether ascites present Portal hypertension documented as of this encounter Goals Goal Patient Goal Associated Recent Patient-Stated? Author Type Problems Progress DH Home Medication Patient On track No Elier , Daniel and Facing (03/15/2020 Milli Carpenter Understanding Action Plan 12:42 PM [facility] EDT) Note: Formatting of this note might be d ifferent from the original. SVR12 through treatment with Epclusa x 2 4 weeks documented as of this encounter Visit Diagnoses Not on filedocumented in this encounter Care Teams Body Straightener Relationship Specialty Start Date End Date Camron Suarez MD PCP - General Family Medicine 05/19/19 [address] [facility] [address] [place] [phone] documented as of this encounter
--- OUTSIDE RECORDS SUMMARY | 2022-07-21 01:17 | XMS_ITS | Encounter Summary ---
:1955 Author Organization [facility] [place] [address] Care Team Providers Name Role Phone Camron Suarez MD Primary Care Provider Encounter Details Date Type Department Care Team Description 07/14/2020 Telephone Gastroenterology at [facility] [place] [address] Social History Tobacco Use Types Packs/Day [...] Notes Telephone Encounter - Maia Lopez - 07/14/2020 2:33 PM EDT Call made to patient per om basket request to LTC pool Patient needs MRI/LABS and FUV with Shahram BARRETT documented in this encounter Plan of Treatment Scheduled Procedures Name Priority Associated Diagnoses Date/Time EGD, UPPER GI ENDOSCOPY Alcoholic cirrhosis, uns pecified whether ascites present Portal hypertension documented as of this encounter Goals Goal Patient Goal Associated Recent Patient-Stated? Author Type Problems Progress DH Home Medication Patient On track No Elier , Compliance and Facing (03/15/2020 Milli Carpenter, Understanding Action Plan 12:42 PM [facility] EDT) Note: Formatting of this note might be d ifferent from the original. SVR12 through treatment with Epclusa x 2 4 weeks documented as of this encounter Visit Diagnoses Not on filedocumented in this encounter Care Teams Test Boring Crew Chief Relationship Specialty Start Date End Date Camron Suarez MD PCP - General Family Medicine 05/19/[address] [place] [address] [phone] documented as of this encounter
--- OUTSIDE RECORDS SUMMARY | 2022-07-21 01:17 | XMS_ITS | Encounter Summary ---
:1955 Author Organization [facility] [place] [address] Care Team Providers Name Role Phone Camron Suarez MD Primary Care Provider Encounter Details Date Type Department Care Team Description 04/01/2020 Surgery Gastroenterology at [facility] Adrian Qiu, EGD, UPPER GI [facility] [place] [address] [facility] [phone] DR GASTROENTEROLOGY DEPT. [place], [place] [address] Social History Tobacco Use Types Packs/Day Years [...] on file documented as of this encounter Last Filed Vital Signs Vital Sign Reading Time Taken Comments Blood Pressure 120/85 04/01/2020 5:00 PM EDT Pulse 72 04/01/2020 3:56 PM EDT Temperature 36.6 ??C (97.9 ??F) 04/01/2020 3:56 PM EDT Respiratory Rate 16 04/01/2020 5:00 PM EDT Oxygen Saturation 98% 04/01/2020 5:00 PM EDT Inhaled Oxygen Concentration - - Weight 97.5 kg (215 lb) 04/01/2020 3:56 PM EDT Height 182.9 cm (6') 04/01/2020 3:56 PM EDT Body Mass Index 29.16 04/01/2020 3:56 PM EDT documented in this encounter Discharge Instructions Discharge InstructionsDavi Brunner RN - 04/01/2020 5:13 PM EDT Upper GI Endoscopy: What to Expect at Home Your Recovery You will be able to go home after your doctor or nurse checks to make sure you are not having any problems. You may have to stay overnight if you had treatment during the test. You may have a sore throat for a day or two after the test. This care sheet gives you a general idea about what to expect after the test. How can you care for yourself at home? Activity Rest when you feel tired. ?? You can do your normal activities when it feels okay to do so. Diet ?? Follow your doctor's directions for eating. ?? Unless your doctor has told you not to, drink plenty of fluids. This helps to replace the fluidsthat were lost during the prep. ?? Do not drink alcohol. Medicines ?? Your doctor will tell you if and when you can restart your medicines. He or she will also give you instructions about taking any new medicines. ?? If you take blood thinners, such as warfarin (Coumadin), clopidogrel (Plavix), or aspirin, be sure to talk to your doctor. He or she will tell you if and when to start taking those medicines again.Make sure that you understand exactly what your doctor wants you to do. ?? If polyps were removed or a biopsy was done during the test, your doctor may tell you not to take aspirin or other anti-inflammatory medicines for a few days. These include ibuprofen (Advil, Motrin) and naproxen (Aleve). ?? If you have a sore throat the day after the procedure, use an ehvf-oif-jethhwh spray to numb yourthroat. Sucking on throat lozenges and gargling with warm salt water may also help relieve your symptoms. Other instructions ?? For your safety, do not drive or operate machinery until the medicine wears off and you can think clearly. Your doctor may tell you not to drive or operate machinery until the day after your test. ?? Do not sign legal documents or make major decisions until the medicine wears off and you can think clearly. The anesthesia can make it hard for you to fully understand what you are agreeing to. Additional Information for Sedation Patients For patients who received sedation: ?? You may have received medications before and/or during your procedure which effects your judgement and reaction time. ?? Do not drive, operate machinery, drink alcoholic beverages or make important decisions for 24 hours. ?? Be careful on stairs as you may be unsteady on your feet. ?? You may eat a regular diet as tolerated. ?? Do not smoke if you are alone. ?? IV site: Slight redness or tenderness is normal, you can use a warm compress if you would like. If tenderness and/or redness increase or if foul drainage occurs, please contact your Doctor. Please call [phone] before 8pm Mon-Fri with problems, questions or concerns. If you call after 8pm or on weekends, call the Hospital at [phone] and ask to speak to the Transport Pilot brood station manager and the wet mix operator will contact that person for you. When should you call for help? Call [phone] anytime you think you may need emergency care. For example, call if: ?? You passed out (lost consciousness). ?? You pass maroon or bloody stools. ?? You have trouble breathing. Call your doctor now or seek immediate medical care if: ?? You have pain that does not get better after you take pain medicine. ?? You are sick to your stomach or cannot drink fluids. ?? You have new or worse belly pain. ?? You have blood in your stools. ?? You have a fever. ?? You cannot pass stools or gas. Watch closely for changes in your health, and be sure to contact your doctor if you have any problems. Where can you learn more? myD- View your After Visit Summary and more online at [email or web address] If you would like to provide feedback about your hospital experience, please call the Office of Patient and Family Relations at . If you have received this After Visit Summary in error, please immediately return it in person to the department, or notify the [facility] Privacy Office by calling toll free at between the hours of 8AM and 5PM to arrange for our retrieval of the documents at no cost to you. Content Version: 12.2 ?? [id number] [employer]. Care instructions adapted under license by [facility]. If you have questions about a medical condition or this instruction, always ask your healthcare professional. [employer] disclaims any warranty or liability for your use of this information. Patient InstructionsGoAdrian chen MD - 04/01/2020 4:38 PM EDT Please see Recommendations in the Provation procedure report which is documented in the procedural note in [facility]. documented in this encounter Medications at Time of Discharge [...] deficiency anemia, unspecified iron deficiency anemia type sofosbuvir-velpatasvi Take 1 tablet by 28 tablet 5 10/13/19 20 04/19/2020 r (Epclusa) 400-100 mouth daily. mg TabletIndications: Chronic hepatitis C without hepatic coma bisacodyl (DULCOLAX) Place 1 suppository 60 suppository [...] mouth daily. documented as of this encounter Miscellaneous Notes Op Note - Adrian Qiu MD - 04/01/2020 4:38 PM EDT [facility] Operative Note Patient Name: Benjamín Henry : [id number] MR#: [id number] Case Date: 04/01/2020 Surgeon: Surgeon(s) and Role: * Adrian Qiu MD - Primary Preoperative diagnosis: Decompensated hepatic cirrhosis Portal hypertension Postoperative diagnosis: * No post-op diagnosis entered * Procedure(s) (LRB): EGD, UPPER GI ENDOSCOPY (N/A) Anesthesia: MAC Full procedure note is documented under the Procedure section of [facility]. documented in this encounter Plan of Treatment Scheduled Procedures Name Priority Associated Diagnoses Date/Time EGD, UPPER GI ENDOSCOPY Alcoholic cirrhosis, uns pecified whether ascites present Portal hypertension documented as of this encounter Goals Goal Patient Goal Associated Recent Patient-Stated? Author Type Problems Progress [facility] Medication Patient On track No Elier , Daniel and Facing (03/15/2020 Milli Carpenter Understanding Action Plan 12:42 PM [facility] EDT) Note: Formatting of this note might be d ifferent from the original. SVR12 through treatment with Epclusa x 2 4 weeks documented as of this encounter Procedures Procedure Name Priority Date/Time Associated Diagnosis Comme nts EGD, UPPER GI 04/01/2020 4:16 PM Decompensated hepatic ENDOSCOPY EDT cirrhosis Portal hypertension UPPER GI ENDOSCOPY Routine 04/01/2020 4:05 PM Res ults for this EDT procedure are i n the results section. documented in this encounter Results UPPER GI ENDOSCOPY (04/01/2020 4:05 PM EDT) Component Value Ref Test Analysis Performed At [facility] Method Time Signature UPPER GI [facility] ENDOSCOPY Endoscopy Procedure Date: 04/01/2020 4:05 PM ? Patient Name: Benjamín Henry ? Date of : 1955 ? Age: 65 ? Order #: [id number] ? Instrument Name: [id number] ? Procedure: ? Upper GI endoscopy Indications: ? Follow-up of esophageal varices Providers: ? Adrian Qiu MD, Crystal Maldonado ? Shanae, RN, Kristie Noel, Adelfo Castillo. ? Jaya, Color Technician Referring : ?Camron Suarez MD, Mehdi Silva nt Medicines: ? Propofol per Anesthesia Complications: ? No immediate complications. Procedure: ? Pre-Anesthesia Assessment: ? - Prior to the procedure, a H istory ? and Physical was performed, a nd ? patient medications, allergie s and ? sensitivities were reviewed. The ? patient's tolerance of previo us ? anesthesia was reviewed. ? - The risks and benefits of t he ? procedure and the sedation op tions ? and risks were discussed with the ? patient. All questions were a nswered ? and informed consent was obta ined. ? - ASA Grade Assessment: III - A ? patient with severe systemic disease. ? - Using IV propofol under the ? supervision of an anesthesiol ogist ? was determined to be medicall y ? necessary for this procedure based on ? age 65 or older and severe ? comorbidity (greater than ASA Grade ? II). ? The procedure, indications, b enefits, ? risks and alternatives were e xplained ? to the patient. Specifically ? discussed were potential ? complications including, but not ? limited to, bleeding, perfora tion, ? infection, missing a cancer, and ? adverse medication reactions. The ? Endoscope was introduced thro ugh the ? mouth, and advanced to the se cond ? part of duodenum. The patient ? tolerated the procedure well. The ? patient tolerated the procedu re well. ? Findings: ? Grade I varices that flattened with insufflation were ? found in the lower third of the esophagus. ? The Z-line was regular and was found 42 cm from the ? incisors. ? The stomach was normal. ? The examined duodenum was normal. ? Moderate Sedation: ? Not applicable - See Anesthesia documentation Impression: ?- Grade I esophageal varices that ? flattened with insufflation s o repeat ? banding deferred. ? - Normal stomach. ? - Normal examined duodenum. ? - No specimens collected. Recommendation: ?- Observe patient's clinical course. ? - F/up in GI Clinic. ? Attending Participation: ? I personally performed the entire procedure. ? Adrian Qiu MD 04/01/2020 4:37:35 PM This report has been signed electronically. Number of Addenda: 0 Note Initiated On: 04/01/2020 4:05 PM Specimen (Source) Anatomical Collection Method Collection Time Re ceived Time Location / / Volume Laterality 04/01/2020 4:05 PM EDT Mehdi [facility] ORDERABLES Performing Organization Address City/State/ZIP Code Phon e Number [employer] documented in this encounter Visit Diagnoses Not on filedocumented in this encounter Administered Medications Inactive Administered Medications - up to 3 most recent administrations Medication Order MAR Action Action Date Dose Rate Site lactated ringers infusion New Bag 04/01/2020 4:13 PM EDT 100 mL/hr 100 mL/hr 100 mL/hr, Intravenous, CONTINUOUS, Starting on Vy 04/01/20 at 1615, Until Vy 04/01/20 at 1713, Endoscopy (Day of Procedure) documented in this encounter Active and Recently Administered Medications Times are shown in EDT. Continuous Medication Order 03/30/2020 03/31/2020 04/01/2020 lactated ringers infusion (CANCELED) 1613 (New Bag - Provider: Maria Teresa Castellano RN)1632 (Stopped - Provider: Kody Green CRNA)1710 (Stopped - Provider: Davi Brunner RN) 100 mL/hr, at 100 mL/hr, Intravenous, CO NTINUOUS, Starting Vy 04/01/20 at 1615, Until Vy 04/01/20 at 1713, Endo (Day of Procedure) documented in this encounter Care Teams Talent Analyst Relationship Specialty Start Date End Date Camron Suarez MD PCP - General Family Medicine 05/19/[address] [place] [phone] documented as of this encounter
--- OUTSIDE RECORDS SUMMARY | 2022-07-21 01:17 | XMS_ITS | Encounter Summary ---
:1955 Author Organization [facility] [place] [address] Care Team Providers Name Role Phone Camron Suarez MD Primary Care Provider Encounter Details Date Type Department Care Team Description 06/02/2020 Telephone [place] [facility] [place] [phone] Social History Tobacco Use Types Packs/Day [...] Notes Telephone Encounter - Maia Lopez - 06/02/2020 4:29 PM EDT Call made to patient per [...] Milli Carpenter, Understanding Action Plan 12:42 PM [facility] EDT) Note: Formatting of this note might be d ifferent from the original. SVR12 through treatment with Epclusa x 2 4 weeks documented as of this encounter Visit Diagnoses Not on filedocumented in this encounter Care Teams Hand Fur Cleaner Relationship Specialty Start Date End Date Camron Suarez MD PCP - General Family Medicine 05/19/[address] [place] [phone] documented as of this encounter
--- OUTSIDE RECORDS SUMMARY | 2022-07-21 01:17 | XMS_ITS | Encounter Summary ---
:1955 Author Organization [facility] [place] [address] Care Team Providers Name Role Phone Camron Suarez MD Primary Care Provider Reason for Visit Reason Comments Medication Management Encounter Details Date Type Department Care Team Description 03/15/2020 Specialty Pharmacy Pharmacy at [facility] Milli Thapa Medication [facility] [place] [address] Social History Tobacco Use Types Packs/Day Years Used Date Former Smoker Cigarettes, Pipe 0.5 13 Quit: 2000 Smokeless Tobacco: Never Used Alcohol Use Standard Drinks/Week Comments Yes 0 (1 standard drink = 0.6 oz pure [...] on file documented as of this encounter Progress Notes Milli Thapa RPH - 03/15/2020 12:40 PM EDT Specialty Pharmacy Consultation; Milli Thapa RPH Comprehensive Medication Management (CMM) Benjamín Henry Diagnosis: HCV Therapy Start Date: 11/05/19 Contact in person or via telephone: telephone Mr. Benjamín Henry is a 65 y.o. (1955) male who was contacted in regard to specialty medication. Spoke with patient regarding EPCLUSA. A review of the medication therapy was performed. The medication was Refilled as scheduled, and all medication related questions and concerns were addressed. The specialty pharmacy staff will follow up with the patient towards the end of treatment. Is the patient willing to proceed with the Clinical Assessment? Yes Summary and Recommendations: Benjamín Henry was contacted regarding his hepatitis C treatment with Epclusa. He has 9 tablets remaining of his current supply (including today's dose) which aligns with his start date and his report of no missed doses throughout the treatment thus far. He reports that he seems to be tolerating the medication well at this point and denies side effects. He??takes??the??1 tablet of Epclusa??at around??10??or??11am??every day. He understands the importance of adherence. He reports no changes in allergies, medications or medical conditions. We are refilling the Epclusa and mailing it out to him. No peter mmendations at this time. Clinic Follow-up needed: yes - Patient has endocscopy scheduled for 04/01/20. Allergies and Drug intolerance: Allergies Allergen Reactions ??? Aspirin Other (See Comments) It makes me bleed. Special Dietary Requirements: no There is no height or weight on file to calculate BMI. Medication Reconciliation Discrepancies (compared to [facility] med list) -He reports that the only medications he is currently taking are Dyazide, Folic acid, and Epclusa Medication Adherence Patient reported X missed doses in the last month: 0 Any gaps in refill history greater than 2 weeks in the last 3 months: no Demonstrates understanding of importance of adherence: yes Informant: patient Reliability of informant: reliable Provider-estimated medication adherence level: 90-100% Reasons for non-adherence: no problems identified Adherence tools used: directed education Support network for adherence: healthcare provider Confirmed plan for next specialty medication refill: delivery by pharmacy Refills needed for supportive medications: not needed Medication List: Current Outpatient Medications Medication Sig Note Dispense Refill ??? ferrous sulfate 325 mg (65 mg iron) Tablet Take 1 tablet by mouth 2 times daily. (Patient not taking: Reported on 01/16/2020) 60 tablet 11 ??? sofosbuvir-velpatasvir (Epclusa) 400-100 mg Tablet Take 1 tablet by mouth daily. 11/21/2019: Start date: 11/05/19 Duration: 24 weeks 28 tablet 5 ??? acetaminophen (TYLENOL) 500 mg Tablet Take 1 tablet by mouth every 6 hours as needed for Pain orFever (Not to exceed 2gm (4 pills) a day). (Patient not taking: Reported on 09/04/2019) ??? bisacodyl (DULCOLAX) [address] 1 suppository rectally daily as needed. (Patient not taking: Reported on 09/04/2019) 60 suppository 3 ??? ketoconazole (NIZORAL) 2 % Cream ??? Multivitamin Cmb No.21-Iron-FA 18-400 mg-mcg Tablet Take 1 tablet by mouth Daily. 12/19/2019: Patient not taking ??? CEROVITE SENIOR Tablet 12/19/2019: Patient not taking ??? triamcinolone (ARISTOCORT) 0.5 % Cream ??? gabapentin (NEURONTIN) 300 mg Capsule Take 1 capsule by mouth 3 times daily. (Patient not taking: Reported on 09/04/2019) 90 capsule 12 ??? folic acid (FOLVITE) 1 mg Tablet Take 1 tablet by mouth daily. (Patient not taking: Reported on 02/26/2020) 90 tablet 3 ??? triamterene-hydrochlorothiazide (DYAZIDE) 37.5-25 mg Capsule Take 2 capsules by mouth every morning. 10/16/2019: 75-50 mg ??? thiamine (THIAMINE) Take 1 tablet by mouth daily. (Patient not taking: Reported on 10/10/2019) 30tablet 3 No current facility-administered medications for this visit. Most Recent Vitals: Ht Readings from Last 1 Encounters: 10/10/19 181.6 cm (5' 11.5) Wt Readings from Last 3 Encounters: 10/10/19 96.4 kg (212 lb 8 oz) 10/16/19 95.3 kg (210 lb) 09/04/19 95 kg (209 lb 6.4 oz) Temp Readings from Last 3 Encounters: 08/03/19 37.2 ??C (99 ??F) (Oral) 07/31/19 36.9 ??C (98.5 ??F) (Temporal) 06/24/19 36.6 ??C (97.9 ??F) (Oral) BP Readings from Last 3 Encounters: 10/10/19 128/82 09/04/19 126/75 08/03/19 130/85 Pulse Readings from Last 3 Encounters: 10/10/19 72 09/04/19 75 08/01/19 81 Pertinent Lab values: Lab Results Component Value Date NA 135 02/24/2020 K 3.6 02/24/2020 CL 99 02/24/2020 CO2 22 02/24/2020 BUN 7 (L) 02/24/2020 CREATININE 0.76 (L) 02/24/2020 GLUCOSE 93 02/24/2020 CALCIUM 8.9 02/24/2020 Lab Results Component Value Date ALT 34 02/24/2020 AST 65 (H) 02/24/2020 ALKPHOS 94 02/24/2020 BILITOT 1.4 (H) 02/24/2020 BILIDIR 0.7 (H) 04/22/2019 ALBUMIN 3.9 02/24/2020 PROT 8.1 (H) 02/24/2020 Lab Results Component Value Date WBC 3.9 (L) 02/24/2020 HGB 12.4 (L) 02/24/2020 HCT 41.8 02/24/2020 MCV 74.6 (L) 02/24/2020 PLATELET 131 (L) 02/24/2020 Lab Results Component Value Date HA1C 5.3 02/24/2020 There is no immunization history on file for this patient. Assessment and Recommendations: Title Type of Medication Management: chronic disease management, targeted medication review Referred By: provider Recipient: beneficiary Provider: plan sponsor pharmacist Visit Type: [facility] Follow-up Method of Contact: by telephone Cognitive Ability: good Cognitive Impairment Status Verified this Year: no Drug Interactions Provided the patient with educational material regarding drug interactions: yes Patient Counseling Counseled the patient on the following: reviewed medication changes since last visit, medication safety precautions education provided, drug interaction education provided to patient, doses and administration discussed, possible adverse effects and management discussed, possible drug and prescription drug interactions discussed, possible drug and OTC drug and food interactions discussed, lab monitoring and follow-up discussed, adherence and missed doses discussed, pharmacy contact information discussed, monitoring medication discussed, over the counter products discussed, preventative care discussed, reminder to refill or scrap picker medication discussed, self-monitoring discussed, timing of medications discussed, referral needs discussed Drug Medication Management Summary Topics discussed: reviewed medication changes since last visit, medication safety precautions education provided, drug interaction education provided to patient, doses and administration discussed, possible adverse effects and management discussed, possible drug and prescription drug interactions discussed, possible drug and OTC drug and food interactions discussed, lab monitoring and follow-up discussed, adherence and missed doses discussed, pharmacy contact information discussed, monitoring medication discussed, over the counter products discussed, preventative care discussed, reminder to refill or scrap picker medication discussed, self-monitoring discussed, timing of medications discussed, referral needs discussed Treatment Outcomes 03/15/2020 1243 Disease progression: Stable Reviewed in detail with patient: Dose appropriateness based on recommended standard dosing Current medication list including OTC medications Medication and disease problems Allergies Comorbid conditions/ Problem List Past adverse events if any Special needs of the patient including physical and cognitive limitations Goals of therapy and management strategies Warnings, precautions, and contraindications Side effects Drug-drug and drug-food interactions Administration instructions including dose, frequency and method Handling, storage, and disposal Verifying expiration dates on products before use Rotating medication inventory to use oldest product first Relevant lab data Patient verbalizes understanding and is able to read-back instructions on self-administration/injection, proper storage, drug stability, importance of adherence and management strategies, side effect avoidance and mitigation strategies, and interruptions in therapy: Yes Physical and Cognitive Assessment: Functional limitations identified: no Cognitive limitations identified: no Concern regarding orientation/memory: no Concern with reasoning/judgement: no Is patient a fall risk: no Other needed information: no Social Assessment: Does the patient have a primary morning caregiver? no Does the patient have an emergency contact on file: Yes Does patient need referral to social media sr strategy manager: No Does patient need referral to advocacy group: No Home Health Assessment: Is the patient in a safe home environment? Yes Is the patient able to store their medication as directed? Yes Does the patient have a support network at home? Yes Reviewed potential home safety hazards with patient: Yes Economic Assessment: Patient is agreeable to medication copay: yes Copay Amount: $3.00 Day Supply: 28 Date Needed: 03/24/20 Copay assistance required: no Therapy Assessment: Current Medication Dosing/Route/Frequency: Epclusa 400-100mg??take 1 tablet by mouth once daily??x 24 weeks Appropriate Therapy: Yes Genotype: 3 ?Treatment Naive/Experienced:??Naive ?Fibrosis Score:??F4 (decompensated) ?HX of liver transplant:??no ?HBV Coinfection:??no ?HIV Coinfection:??no Effective: yes - HCV RNA undected after ~7 weeks of treatment Most Recent HCV Viral Load: Undetected on 12/23/19 and 02/24/20 Undetectable RVR4 Labs: yes - see above Patient-Reported Side Effects: no Side Effect Mitigation Strategies Discussed: Yes Patient Goals: Patient's specific desired goal: SVR12 Measured by: HepC viral load 12 weeks post-treatment Time-frame to meet goal: 12 weeks post-treatment Is the patient on track to achieve goals of therapy? yes If no, what are the barriers and action plan to reach the goal: N/A Care Plan and Interventions: Care Plan Reviewed and Approved by both Pharmacist and Patient: Yes Did Care Plan Change? No If yes: Change to plans of care based on: Patient's request: n/a Condition: n/a Response to therapy: n/a Provider request: n/a Follow-up needed: No Interventions (if applicable): No N/A Patient experienced change in condition that affects treatment: no Additional care/services needed: no Educational information or adherence tools provided: Yes HCV therapy adherence: Yes HCV treatment response: Yes Additional equipment/supplies required: no Patient Counseling: Monitoring: CBC, CMP, HepC viral load Lab schedule reviewed: Yes Upcoming Lab Reminder Given: Yes Personal Hygiene Device Disposal Reminder Given: Yes Proper Hydration: Yes Number of Days Supply Remaining from Prior Fill: 9 (including today) Pharmacist follow-up needed: Yes Patient Satisfaction with Care/Services Provided: Yes Informed patient of specialty pharmacy services: Yes -Patient received welcome packet: Yes Date received: 11/12/19 Delivery Method: mail ?? -Patient received and returned Rights & Responsibilities: Yes Date received: 11/12/19 Delivery Method: mail -Patient is aware a licensed pharmacist is available 24 hours a day, 7 days a week to discuss medication-related questions or concerns: Yes -Patient verbalizes understanding of the common side effect profile of their medication. The patientis able to call 911 or seek urgent care if signs/symptoms of allergy or harmful adverse reactions occur: Yes Patient Satisfaction with Therapy: yes - no concerns Patient understands no changes to current drug regimen were made at the appointment and that [facility] is providing recommendations (summary located at top of note) for provider review and follow up. Milli Thapa RPH 03/15/20 12:43 PM documented in this encounter Plan of Treatment Scheduled Procedures Name Priority Associated Diagnoses Date/Time EGD, UPPER GI ENDOSCOPY Alcoholic cirrhosis, uns pecified whether ascites present Portal hypertension documented as of this encounter Goals Goal Patient Goal Associated Recent Patient-Stated? Author Type Problems Progress DH Home Medication Patient On track No Elier Compliance and Facing (03/15/2020 Alvarado Couch Action Plan 12:42 PM [facility] EDT) Note: Formatting of this note might be d ifferent from the original. SVR12 through treatment with Epclusa x 2 4 weeks documented as of this encounter Visit Diagnoses Not on filedocumented in this encounter Care Teams Form Worker Relationship Specialty Start Date End Date Camron Suarez MD PCP - General Family Medicine 05/19/19 [address] [facility] [address] [place] [phone] documented as of this encounter
--- OUTSIDE RECORDS SUMMARY | 2022-07-21 01:17 | XMS_ITS | Encounter Summary ---
:1955 Author Organization [place] [address] Care Team Providers Name Role Phone Camron Suarez MD Primary Care Provider Encounter Details Date Type Department Care Team Description 09/15/2020 Orders Only Gastroenterology at [facility] [place] [place] Mehdi London Cirrhosis of liver without a scites, unspecified hepatic cirrhosis type; [facility] CHECO Lucas Iron deficiency anemia, unspecified iron deficiency anemia type; [place] [address] [facility] Medical Thyroid disorder [phone] [place] [address] Social History Tobacco Use Types Packs/Day Years [...] Understanding Action Plan 12:42 PM [facility] EDT) Note: Formatting of this note might be d ifferent from the original. SVR12 through treatment with Epclusa x 2 4 weeks documented as of this encounter Results TSH Braham (10/15/2020 2:48 PM EST) athologist Signature TSH 4.04 0.27 - 4.20 CHRISTY NUHA mcIU/mL [facility] Specimen Anatomical Collection Method Collection Time Receive d Time (Source) Location / / Volume Laterality Blood specimen 10/15/2020 2:48 PM 021 2:59 (specimen) EST PM EST Resulting Agency Comment Spec In Lab Jia Bledsoe MD CHEMISTRY ORDERABLES Performing Organization Address City/[facility]/ZIP Code Phon e Number [address] (ABNORMAL) Iron and TIBC (10/15/2020 2:48 PM EST) Analysis Performed At [facility] logist Time Signature Iron 83 45 - 160 [facility] mcg/dL [facility] TIBC 470 (H) 250 - 450 [facility] mcg/dL [facility] Iron Saturation 18 (L) 20 - 50 % [facility] Specimen Anatomical Collection Method Collection Time Receive d Time (Source) Location / / Volume Laterality Blood specimen 10/15/2020 2:48 PM 021 2:59 (specimen) EST PM EST Resulting Agency Comment Spec In Lab Jia Bledsoe MD CHEMISTRY ORDERABLES Performing Organization Address City/[facility]/ZIP Code Phon e Number [address] Ferritin (10/15/2020 2:48 PM EST) athologist Signature Ferritin 41 30 - 400 CHRISTY NUHA ng/mL [facility] Comment: Pediatric reference ranges not verified at [facility] [place] [place], interpret with caution. Reference ranges for females greater mitchell n 50 years of age approach values for men, i.e., 30-400 ng/mL. Specimen Anatomical Collection Method Collection Time Receive d Time (Source) Location / / Volume Laterality Blood specimen 10/15/2020 2:48 PM 021 2:59 (specimen) EST PM EST Resulting Agency Comment Spec In Lab Jia Bledsoe MD CHEMISTRY ORDERABLES Performing Organization Address City/State/ZIP Code Phon e Number [place] [phone] documented in this encounter Visit Diagnoses Diagnosis Cirrhosis of liver without ascites, unsp ecified hepatic cirrhosis type Iron deficiency anemia, unspecified iron deficiency anemia type Thyroid disorder Unspecified disorder of thyroid documented in this encounter Care Teams Tire Classifier Relationship Specialty Start Date End Date Camron Suarez MD PCP - General Family Medicine 05/19/[address] [place] [phone] documented as of this encounter
--- OUTSIDE RECORDS SUMMARY | 2022-07-21 01:17 | XMS_ITS | Encounter Summary ---
:1955 Author Organization [facility] [place] [address] Care Team Providers Name Role Phone Camron Suarez MD Primary Care Provider Encounter Details Date Type Department Care Team Description 05/11/2020 External Results Gastroenterology at [facility] Mehdi London, [facility] [place] [address] [facility] [phone] [place], [place] [address] Social History Tobacco Use Types [...] Milli Carpenter, Understanding Action Plan 12:42 PM [facility] EDT) Note: Formatting of this note might be d ifferent from the original. SVR12 through treatment with Epclusa x 2 4 weeks documented as of this encounter Procedures Procedure Name Priority Date/Time Associated Diagnosis Comme nts EXTERNAL LAB CBC CMP Routine 04/30/2020 Results for this THYROID RESULTS PANEL proced ure are in the results section . documented in this encounter Results CBC / CMP / Thyroid External Results (04/30/2020) P athologist Signature WBC 3.94 RBC 5.54 Hemoglobin 13.3 Hematocrit 44.4 MCV 80.1 Platelets 115 Sodium 138 Potassium 3.7 Chloride 102 CO2 27 BUN 13 Creatinine 0.72 Glucose Lvl 85 Calcium 8.9 Total Protein 8.4 Albumin 4.4 Total Bilirubin 1.1 Alk Phos 123 AST 83 ALT 37 HCV Viral Load <15 Comment: undetected Historical Provider POINT OF CARE TEST ORDERABLE S documented in this encounter Visit Diagnoses Not on filedocumented in this encounter Care Teams Manager [place] Relationship Specialty Start Date End Date Camron Suarez MD PCP - General Family Medicine 05/19/[address] [place] [phone] documented as of this encounter
--- OUTSIDE RECORDS SUMMARY | 2022-07-21 01:17 | XMS_ITS | Encounter Summary ---
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 HCC. Tumor Treatment History: ?? 07/31/19 [place] Emobilization -Imaging: Initial: 07/14/2019 MRI abdomen IMPRESSION 1. ??Large mass in the anterior left hepatic lobe, LR-5 (definitely hepatocellular carcinoma). 2. ??Cirrhosis and stigmata of portal hypertension including gastric/splenic varices. ?? Interval Surveillance:?? 09/04/19 CT Abdomen IMPRESSION 1. ??Lesion 1: Segment 4, site of prior embolization, LR-TR nonviable 2. ??Lesion 2: Segment 7/8, 14 mm, LR-3 3. ??Hepatic cirrhosis with stigmata of portal hypertension. ? 02/24/20 MRI Abdomen ??IMPRESSION The previously noted LEFT hepatic lobe mass has decreased in size and is nonenhancing, measuring. No other suspicious or enhancing hepatic lesions are noted. ?? 10/15/20 MRI Abdomen IMPRESSION ?? 1. ??Lesion 1: Site of prior segment 4 embolization, LR-TR nonviable 2. ??Lesion 2: Segment 7/8 measures 19 mm, LR-3 3. ??No new hepatic masses. Current: 06/17/21 MRI Abdomen IMPRESSION ?? 1. Lesion 1: Site of prior segment 4 embolization, LR-TR nonviable 2. Lesion 2: Segment 7/8, increased in size, upgraded to LR-4 3. Multiple new LR-3 lesions as described above AFP Value: 6.1 Tissue: Patient Characteristics: Current Child's Score: Current MELD Score: Pertinent Labs: see eDH Discussion / Recommendations of the Board: Lesion # 1 = LR-TR nonviable Lesion # 2 = LR-4, upgraded from LR-3 due to growth. Now 2.2cm, prior 1.9mm There are several scattered LR-3 lesions. Recommendation: Ablation vs [place] Embolization, Shahram will discuss with patient at visit on . Dr. Berger will reach out after visit. Conference Attendees: Angelika Lopez, Jatin, Herminio, Rakan, Chan, Ifeoma Corbett Russo, Brooks, CHECO London, CLAU Mak. *These are recommended next steps based on past studies and information available here. Specific treatment to be undertaken must ultimately be determined on an individual patient and those involved in the treatment plan. Aida Mak RN Liver Tumor & Organ Payment Poster Division of Gastroenterology and Hepatology [facility] documented in this encounter Plan of Treatment [...] Carpenter, Understanding Action Plan 12:42 PM [facility] EDT) Note: Formatting of this note might be d ifferent from the original. SVR12 through treatment with Epclusa x 2 4 weeks documented as of this encounter Visit Diagnoses Not on filedocumented in this encounter Care Teams Worship Director Relationship Specialty Start Date End Date Camron Suarez MD PCP - General Family Medicine 05/19/[address] [place] [phone] documented as of this encounter
--- OUTSIDE RECORDS SUMMARY | 2022-07-21 01:17 | XMS_ITS | Encounter Summary ---
:1955 Author Organization [facility] [address] Care Team Providers Name Role Phone Camron Suarez MD Primary Care Provider Encounter Details Date Type Department Care Team Description 04/01/2020 Anesthesia Event Gastroenterology at [facility] Betito Coronado, [facility] [place] [address] [facility] [phone] DR ANESTHESIOLOGY [place], [place] [address] Anesthesia Record Procedure Summary Procedure Name Responsible Anesthesia Start Anesthesia Stop Time Anesthesiologist Time EGD, UPPER GI Betito Coronado Valentín DO 04/01/20 1615 04/01/20 16 30 ENDOSCOPY (N/A Trunk) Events Date Time Event Comment 04/01/2020 1615 AN Verify 1615 Start 1615 An Start Data 1617 An Induction 1618 Anesthesia Ready 1620 an stop data 1627 Recovery or ICU Handoff Patient care was transferred to the destination unit staff after review of the patient's medica l history, current anesthetic/surgi ce status and plan, according to the Provider Handoff Checklist. 1630 Stop 04/02/2020 0746 Name Total Propofol 150 mg Propofol INF 204.75 mg lactated ringers infusion 200 mL Agents Name O2 Air N2O Blood No blood administrations on file. Lines, Drains, and Airways Type Details Placement Removal Incision 07/31/19; 1300; wrist; 07/31/19 1300 by 05/22/22 1715 by laparoscopic puncture; Jolynn Green, RN Alla Tristan Radial access for liver bland embolization; 05/22/22 (LDA cleanup utility RA#[id number]); 1715 (LDA cleanup utility RA#[id number]) PIV 04/01/20; 1604; basilic vein 04/01/[address] colin, 04/01/20 1711 by (medial side of arm), right; CLAU Valencia Dean R RN 20 gauge; no longer indicated; 04/01/20; 1711 documented in this encounter Social History Tobacco Use Types Packs/Day Years [...] on file documented as of this encounter OR Notes Anesthesia Postprocedure Evaluation - Betito Coronado DO - 04/02/2020 7:46 AM EDT Department of Anesthesiology Post-procedure Note Patient: Benjamín Henry Procedure Summary Date: 04/01/20 Room / Location: [facility] ENDO 2 / [facility] ENDOSCOPY Anesthesia Start: 1615 Anesthesia Stop: 1630 Procedure: EGD, UPPER GI ENDOSCOPY (N/A Trunk) Diagnosis: (Decompensated hepatic cirrhosis) (Portal hypertension) Surgeon: Adrian Qiu MD Responsible Provider: Betito Coronado DO Anesthesia Type: MAC ASA Status: 3 All Anesthesia Providers: Anesthesiologist: Betito Coronado DO SLEEVE SETTER SAFETY STITCH: Kody Green CRNA Vitals Value Taken Time BP 120/85 04/01/2020 5:00 PM Temp Pulse Resp 16 04/01/2020 5:00 PM SpO2 99 % 04/01/2020 5:01 PM Pain Level 0 04/01/2020 4:40 PM Vitals shown include unvalidated device data. Patient Location: PACU/IAP Level of Consciousness: Awake and Alert Pain Management: Satisfactory Analgesia PONV: None Cardiovascular Status: At Baseline and Hemodynamically Stable Respiratory Status: At Baseline and Room Air Postoperative Fluid Status: Intravascular EUvolemia Possible Anesthetic Complications: NONE apparent at time of evaluation Final Primary Anesthesia Type: General (The anesthetic type performed was the same as planned.) Comments: Betito Coronado DO Anesthesia Preprocedure Evaluation - Betito Coronado DO - 04/01/2020 7:36 AM EDT Pre-Anesthesia Evaluation for: Benjamín Henry a 65 y.o. male. Procedure(s): EGD, UPPER GI ENDOSCOPY Patient Active Problem List Diagnosis ??? Iron deficiency anemia due to chronic blood loss ??? Portal hypertension ??? HCC (hepatocellular carcinoma) ??? Chronic hepatitis C without hepatic coma ??? Cirrhosis, alcoholic ??? Esophageal varices Past Medical History: Diagnosis Date ??? Alcohol abuse ??? Cirrhosis, alcoholic ??? Esophageal varices ??? HTN (hypertension) Past Surgical History: Procedure Laterality Date ??? IR LIVER BLAND EMBOLIZATION 07/31/2019 IR Liver [place] Embolization 07/31/2019 Zeus Berger MD [facility] INTERVENTIONL RAD ??? PRO UPPER GI ENDOSCOPY, DIAGNOSTIC N/A 04/20/2019 EGD, UPPER GI ENDOSCOPY performed by Jamie Avalos MD at [facility] ENDOSCOPY ??? PRO UPPER GI ENDOSCOPY, DIAGNOSTIC N/A 05/22/2019 EGD, UPPER GI ENDOSCOPY performed by Jia Bledsoe MD at [facility] ENDOSCOPY ??? PRO UPPER GI ENDOSCOPY, DIAGNOSTIC N/A 06/24/2019 EGD, UPPER GI ENDOSCOPY performed by Butch Parker MD at [facility] ENDOSCOPY ??? PRO UPPER GI ENDOSCOPY, LIGAT VARIX 04/20/2019 EGD, W BAND LIGATION OF ESOPHAGEAL/GASTRIC VARICES performed by Jamie Avalos MD at [facility] ENDOSCOPY Social History Tobacco Use ??? Smoking status: Former Smoker Packs/day: 0.50 Years: 13.00 Pack years: 6.50 Types: Cigarettes, Pipe Last attempt to quit: 2000 Years since quittin.5 ??? Smokeless tobacco: Never Used Substance Use Topics ??? Alcohol use: Yes Frequency: 4 or more times a week Drinks per session: 3 or 4 Binge frequency: Daily or almost daily Comment: half a fith of wiskey daily last drink 04-19-19; 3-4 non alcohol beers daily Social History Substance and Sexual Activity Drug Use Not Currently Allergies Allergen Reactions ??? Aspirin Other (See Comments) It makes me bleed. Medications: MAR and/or home medications have been reviewed. Physical Exam: There were no vitals filed for this visit. There is no height or weight on file to calculate BMI. Airway Assessment: Mallampati: II TM distance: >3 FB Neck ROM: full Cardiovascular Assessment: Rhythm: regular Rate: normal Pulmonary Assessment: breath sounds clear to auscultation Dental Assessment: - normal exam Misc Assessment: Anesthesia Plan: ASA 3 MAC, with a(n) intravenous induction 65 yo with cirhosis, esophageal varices, here for repeat banding. Feels well. No n/v/regurg. No bleeding. Pt requests to proceed. Stable health Denies recent hemoptysis/ hematemesis, CP, SOB MAC ASA3 Consent signed Region - Other Informed Consent: Anesthetic plan and risks discussed with patient. Plan discussed with SLEEVE SETTER SAFETY STITCH. PAT Clinic Note documented in this encounter Plan of Treatment Scheduled Procedures Name Priority Associated Diagnoses Date/Time EGD, UPPER GI ENDOSCOPY Alcoholic cirrhosis, uns pecified whether ascites present Portal hypertension documented as of this encounter Goals Goal Patient Goal Associated Recent Patient-Stated? Author Type Problems Progress DH Home Medication Patient On track No Elier , Daniel and Facing (03/15/2020 Alvarado Couch Action Plan 12:42 PM [facility] EDT) Note: Formatting of this note might be d ifferent from the original. SVR12 through treatment with Epclusa x 2 4 weeks documented as of this encounter Visit Diagnoses Not on filedocumented in this encounter Administered Medications Inactive Administered Medications - up to 3 most recent administrations Medication Order MAR Action Action Date Dose Rate Site propofol (DIPRIVAN) 10 mg/mL bolus Given 04/01/2020 4:29 PM EDT 50 mg injection (Anesthesia) PRN, Starting on Vy 04/01/20 at 1622, Until Vy 04/01/20 at 1645, Anesthesia Intra-op Given 04/01/2020 4:25 PM EDT 50 mg Given 04/01/2020 4:22 PM EDT 50 mg propofol (DIPRIVAN) Rate/Dose 04/01/2020 4:29 200 mcg/kg/min 117 mL/ hr infusion Change PM EDT CONTINUOUS PRN, Starting on Vy 04/01/20 at 1619, Until Vy 04/01/20 at 1645, Anesthesia Intra-op, Routine New Bag 04/01/2020 4:19 PM EDT 150 mcg/kg/min 87.8 mL/hr documented in this encounter Care Teams Host/Hostess Ground Relationship Specialty Start Date End Date Camron Suarez MD PCP - General Family Medicine 05/19/[address] [place] [phone] documented as of this encounter
--- OUTSIDE RECORDS SUMMARY | 2022-07-21 01:17 | XMS_ITS | Encounter Summary ---
:1955 Author Organization [facility] [place] [address] Care Team Providers Name Role Phone Camron Suarez MD Primary Care Provider Encounter Details Date Type Department Care Team Description 08/15/2021 Telephone Gastroenterology at [facility] [place] [address] Social History Tobacco Use Types Packs/Day [...] this encounter Miscellaneous Notes Telephone Encounter - Jojo Lynne - 08/15/2021 12:00 PM EST The patient contacted the office this morning to inform the office that he wants to cancel his Live [place] Embolization on 08/23/21. The patient said that he is not up to it at this time and does not want to come into the hospital around all the sick people. The patient stated that he was very uncomfortable after his last procedure and does not want to go through that again during the Holidays. documented in this encounter Plan of Treatment [...] Understanding Action Plan 12:42 PM [facility] EDT) Note: Formatting of this note might be d ifferent from the original. SVR12 through treatment with Epclusa x 2 4 weeks documented as of this encounter Visit Diagnoses Not on filedocumented in this encounter Care Teams Aircraft Engine Mechanic Relationship Specialty Start Date End Date Camron Suarez MD PCP - General Family Medicine 05/19/[address] [place] [phone] documented as of this encounter
--- OUTSIDE RECORDS SUMMARY | 2022-07-21 01:17 | XMS_ITS | Encounter Summary ---
:1955 Author Organization [facility] [place] [address] Care Team Providers Name Role Phone Camron Suarez MD Primary Care Provider Encounter Details Date Type Department Care Team Description 06/17/2020 Telephone Gastroenterology at [facility] Aida Mak, [facility] [place] [address] Social History Tobacco Use Types Packs/Day [...] Understanding Action Plan 12:42 PM [facility] EDT) Note: Formatting of this note might be d ifferent from the original. SVR12 through treatment with Epclusa x 2 4 weeks documented as of this encounter Visit Diagnoses Not on filedocumented in this encounter Care Teams President Mortgage Company Relationship Specialty Start Date End Date Camron Suarez MD PCP - General Family Medicine 05/19/19 [address] [facility] [address] [place] [phone] documented as of this encounter
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
--- OUTSIDE RECORDS SUMMARY | 2022-07-21 01:17 | XMS_ITS | Encounter Summary ---
:1955 Author Organization [facility] [place] [address] Care Team Providers Name Role Phone Camron Suarez MD Primary Care Provider Encounter Details Date Type Department Care Team Description 09/23/2020 Telephone Gastroenterology at [facility] Eliana Gardner [facility] [place] [address] Social History Tobacco Use Types Packs/Day [...] this encounter Miscellaneous Notes Telephone Encounter - Eliana Gardner - 09/23/2020 12:50 PM EST Pt called to reschedule his apts with Shahram Burk. Pt has dentist that day. Pt told me to rescheduleapts to a non Sunday after 1 pm and then to call him back and leave a vm letting him know when apts are and a number to call if they dont work for him. Called rescheduled and left pt vm documented in this encounter Plan of Treatment [...] Understanding Action Plan 12:42 PM [facility] EDT) Note: Formatting of this note might be d ifferent from the original. SVR12 through treatment with Epclusa x 2 4 weeks documented as of this encounter Visit Diagnoses Not on filedocumented in this encounter Care Teams Factory Maintenance Technician Relationship Specialty Start Date End Date Camron Suarez MD PCP - General Family Medicine 05/19/19 44 [facility] [address] [place] [phone] documented as of this encounter
--- OUTSIDE RECORDS SUMMARY | 2022-07-21 01:17 | XMS_ITS | Encounter Summary ---
:1955 Author Organization [facility] [place] [address] Care Team Providers Name Role Phone Camron Suarez MD Primary Care Provider Encounter Details Date Type Department Care Team Description 04/19/2020 Orders Only Gastroenterology at [facility] Gila Arriaza, [place] [phone] Social History Tobacco Use Types Packs/Day [...] Understanding Action Plan 12:42 PM [facility] EDT) Note: Formatting of this note might be d ifferent from the original. SVR12 through treatment with Epclusa x 2 4 weeks documented as of this encounter Visit Diagnoses Not on filedocumented in this encounter Care Teams Public Address System Operator Relationship Specialty Start Date End Date Camron Suarez MD PCP - General Family Medicine 05/19/[address] [place] [phone] documented as of this encounter
--- OUTSIDE RECORDS SUMMARY | 2022-07-21 01:17 | XMS_ITS | Encounter Summary ---
:1955 Author Organization [facility] [place] [address] Care Team Providers Name Role Phone Camron Suarez MD Primary Care Provider Encounter Details Date Type Department Care Team Description 08/16/2021 Orders Only Gastroenterology at [facility] Mehdi London Hepatocellular carcinoma; [facility] Lucas Hepatic cirrhosis, unspecified hepatic c irrhosis type, unspecified [place] [address] [facility] [phone] [place] [address] Social History Tobacco Use Types Packs/Day Years [...] documented as of this encounter Visit Diagnoses Diagnosis Hepatocellular carcinoma Malignant neoplasm of liver, primary Hepatic cirrhosis, unspecified hepatic c irrhosis type, unspecified whether ascites present documented in this encounter Care Teams Revolving Inventory Clerk Relationship Specialty Start Date End Date Camron Suarez MD PCP - General Family Medicine 05/19/19 44 [facility] [address] [place] [phone] documented as of this encounter
--- OUTSIDE RECORDS SUMMARY | 2022-07-21 01:17 | XMS_ITS | Encounter Summary ---
:1955 Author Organization [facility] [place] [address] Care Team Providers Name Role Phone Camron Suarez MD Primary Care Provider Encounter Details Date Type Department Care Team Description 03/03/2020 Telephone Gastroenterology at [facility] [place] [address] Social History Tobacco Use Types Packs/Day Years [...] this encounter Miscellaneous Notes Telephone Encounter - Yin Lopez - 03/03/2020 2:05 PM EDT Left message for patient to schedule his upper endoscopy recommended by Shahram London. documented in this encounter Plan of Treatment [...] Understanding Action Plan 12:42 PM [facility] EDT) Note: Formatting of this note might be d ifferent from the original. SVR12 through treatment with Epclusa x 2 4 weeks documented as of this encounter Visit Diagnoses Not on filedocumented in this encounter Care Teams Business Line Controller Relationship Specialty Start Date End Date Camron Suarez MD PCP - General Family Medicine 05/19/19 44 [facility] [address] [place] [phone] documented as of this encounter
--- OUTSIDE RECORDS SUMMARY | 2022-07-21 01:17 | XMS_ITS | Encounter Summary ---
:1955 Author Organization [facility] [place] [address] Care Team Providers Name Role Phone Camron Suarez MD Primary Care Provider Encounter Details Date Type Department Care Team Description 05/05/2021 Telephone Gastroenterology at [facility] [place] [address] Social History Tobacco Use Types Packs/Day [...] Notes Telephone Encounter - Maia Lopez - 05/05/2021 1:00 PM EDT Call made to patient per in basket request from: CLAU Parra Patient needs: overdue labs, MRI and f/u with Shahram BARRETT for patient to call GI clinic to schedule Sending a letter as well documented in this encounter Plan of Treatment [...] Understanding Action Plan 12:42 PM [facility] EDT) Note: Formatting of this note might be d ifferent from the original. SVR12 through treatment with Epclusa x 2 4 weeks documented as of this encounter Visit Diagnoses Not on filedocumented in this encounter Care Teams Windows Server Architect Relationship Specialty Start Date End Date Camron Suarez MD PCP - General Family Medicine 05/19/[address] [place] [address] [address] [place] [phone] documented as of this encounter
--- OUTSIDE RECORDS SUMMARY | 2022-07-21 01:17 | XMS_ITS | Encounter Summary ---
:1955 Author Organization [facility] [place] [address] Care Team Providers Name Role Phone Camron Suarez MD Primary Care Provider Reason for Referral Consultation (ALBAN) - Closed Specialty Diagnoses / Procedures Referred By Contact Refer red To Contact [facility] Diagnoses Chronic pain syndrome Pain - Chronic leg pain in setting of alcoholic cirrhosis/ ?Mehdi Tucker, [facility] [place] [address] [place] [address] Phone: Fax: Referral ID Status Reason Start Date Expiration Date Visits V isits Requested Authorized [id number] Closed Pain Consult 06/23/2021 06/23/2022 1 1 Encounter Details Date Type Department Care Team Description 06/23/2021 Office Visit Gastroenterology at [facility] Mehdi London Alcoholic cirrhosis of liver without ascites (Primary Dx); [facility] Lucas HCC (hepatocellular carcinoma); [place] [address] [facility] Portal hypertension; [phone] [place] History of hepatitis C; [place], [place] Chronic pain sy ndrome [address] Social History Tobacco Use Types Packs/Day Years [...] Sign Reading Time Taken Comments Blood Pressure 139/90 06/23/2021 1:37 PM EDT Pulse 61 06/23/2021 1:37 PM EDT Temperature - - Respiratory Rate - - Oxygen Saturation - - Inhaled Oxygen Concentration - - Weight 97.5 kg (215 lb) 06/23/2021 1:37 PM EDT Height - - Body Mass Index 29.16 05/09/2021 9:25 AM EDT documented in this encounter Progress Notes Mehdi London PA - 06/23/2021 1:30 PM EDT Gastroenterology and Hepatology Follow Up Note Patient: Benjamín Henry Sex: male : 1955 Provider: Mehdi London PA-C PCP: Camron Suarez MD LIVER HISTORY 1. Decompensated cirrhosis due to HCV and alcoholism -Presented to [facility] March 2019 with acute upper GI bleed ?Per pt - has bled before but no hospitalization ?PRBCs x 4 units ?EGD 04/20/19 with non-bleeding large EV, banded, type 1 gastroesophageal varix with stigmata of recent bleeding, banded ?Pt declined TIPS d/t fear of HE ?EGD 05/22/19 w/ large varices, banded, PHG ?EGD 06/24/19 w/ eradication of varices ?Rec'd propranolol but patient declining d/t fear of side effects -Last EGD 04/01/20 with grade I varices, repeat 1 year -SUYAPA: was placed on PO iron but taking sparingly d/t fear of side effects, not taking as of Sep 2020 -Ascites: Trace on imaging, no treatment, does have trace LE edema -No HE suspected -EtOH - hard liquor and beer most days since early 20s, unknown exact quantities,??still drinking 2-3 drinks daily -HCV risk factors: IVDU, GREGORIA, tattoos -HCV RNA 1,260,443 IU/mL on 05/22/19 -Genotype 3 -Workup negative for other infectious hepatitis (neg HAV/HBV immunity) -Patient reluctant to consider treatment until Sep 2019 -Treatment: started SOF/DANIELA x 24 weeks 11/05/19 Side effects: minimal headaches Labs 12/23/19 (approx 7 weeks): HCV RNA undetected Labs 02/24/20: (16 weeks): HCV RNA undetected Labs 04/30/20 (EOT): HCV RNA undetected Labs 10/15/20 (SVR24): HCV RNA undetected - cure ?? 2. Hepatocellular carcinoma -Noted left lobe buldging on non-contrast CT at [facility] March 2019 -Not noted on RUQ ultrasound in hospital -MRI 07/14/19: 55 mm mass in segment 2, read as LI-RADS 5 lesion -Normal AFP 5.6 06/24/19 -CA 19-9 37.0 on 07/14/19 -Underwent bland embolization on 07/31/19 (not biopsied) -CT 09/04/19: left lobe lesion (lesion 1) LR-TR nonviable, segment 7/8 lesion (lesion 2) LR-3 -MRI 02/24/20: left lobe lesion decreased to 3.5 cm, nonenhancing, no other suspicious lesions noted on report (scattered small cysts) -MRI 10/15/20: Lesion 1 TR-nonviable (28x22 mm), Lesion 2 unchanged, LR-3 -MRI 06/17/21: Lesion 1 TR-nonviable, Lesion 2 increased in size, LR-4, multiple new LR-3 lesions -Last AFP = 6.1 on 06/17/21 -Last MELD-Na = 8 on 06/17/21 3. 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 History of hepatitis C Z86.19 ??? HCC (hepatocellular carcinoma) C22.0 ??? Iron deficiency anemia due to chronic blood loss D50.0 ??? Portal hypertension K76.6 ??? Chronic pain syndrome G89.4 ??? Alcoholic cirrhosis K70.30 Interval History: Mr. Benjamín Henry is 66 y.o. with a history of alcoholic and HCV cirrhosis and associated hepatocellular carcinoma. He follows up in clinic today following MRI and labs last week. We last met in September. He is still working hard on the temple and keeping active throughout the day. He admits he is still drinking every night though which helps with pain and sleep. He never saw the pain clinic after he was referred but is interested still and having conversation, but only if it can be done through a phone visit. He is still having severe pain in his knees and legs. He is now living in [place] full-time. Unfortunately his brother in January from a heart attack. He has noticed a new problem of frequent urination which often wakes him from sleep. He has not seenhis primary care provider in a long time. MEDICATIONS: Current Outpatient Medications Medication Sig Dispense Refill ??? acetaminophen (TYLENOL) 500 mg Tablet Take 1 tablet by mouth every 6 hours as needed for Pain orFever (Not to exceed 2gm (4 pills) a day). ??? triamterene-hydrochlorothiazide (DYAZIDE) 37.5-25 mg Capsule Take 2 capsules by mouth every morning. No current facility-administered medications for this visit. ALLERGIES/ADR Allergies Allergen Reactions ??? Aspirin Other (See Comments) It makes me bleed. PHYSICAL EXAMINATION: Vitals: 06/23/21 1337 BP: 139/90 Pulse: 61 Weight: 97.5 kg (215 lb) Body mass index is 29.16 kg/m??. Constitutional: ?Well appearing, appropriate, no acute distress Skin: ?No cyanosis, no palmar erythema, no jaundice, no spider angiomata Head:?Normocephalic, sclerae anicteric Abdomen: ?Nontender, nondistended Neurologic: ?Alert and oriented x 3, no asterixis or tremor Extremities:?Trace LE edema, varicose veins,??no clubbing, no muscle wasting, no joint swelling PERTINENT LABS AND IMAGING: Lab Results Component Value Date WBC 4.2 06/17/2021 HGB 16.4 06/17/2021 HCT 48.4 06/17/2021 MCV 92.4 06/17/2021 PLATELET 104 (L) 06/17/2021 Lab Results Component Value Date NA 136 06/17/2021 K 3.9 06/17/2021 CL 102 06/17/2021 CO2 22 06/17/2021 BUN 10 06/17/2021 CREATININE 0.78 (L) 06/17/2021 GLUCOSE 85 06/17/2021 CALCIUM 9.2 06/17/2021 ESTGFR 94 06/17/2021 Lab Results Component Value Date ALT 62 (H) 06/17/2021 AST 99 (H) 06/17/2021 ALKPHOS 92 06/17/2021 BILITOT 1.0 06/17/2021 BILIDIR 0.7 (H) 04/22/2019 ALBUMIN 4.2 06/17/2021 PROT 8.6 (H) 06/17/2021 Lab Results Component Value Date INR 1.2 06/17/2021 MELD-Na score: 8 at 06/17/2021 3:20 PM MELD score: 8 at 06/17/2021 3:20 PM Calculated from: Serum Creatinine: 0.78 mg/dL (Using min of 1 mg/dL) at 06/17/2021 3:20 PM Serum Sodium: 136 mmol/L at 06/17/2021 3:20 PM Total Bilirubin: 1.0 mg/dL at 06/17/2021 3:20 PM INR(ratio): 1.2 at 06/17/2021 3:20 PM Age: 66 years Lab Results Component Value Date AFP 6.1 06/17/2021 Imaging: MRI abdomen wwo contrast 06/17/21: FINDINGS: ?? Prior hepatic interventions: LEFT hepatic lobe embolization from segment 4 LEFT hepatic artery branch, 07/31/2019 Liver Morphology: Lobulated contour with hypertrophy of the caudate lobe, grossly stable. Heterogeneous signal pattern on the T2-weighted images, compatible with cirrhotic change. ?? Focal hepatic lesions: Yes ?? Lesion 1: Previously treated LEFT segment 4 hepatic mass (series 7 through 12, images 22 through 24) Size: 21 x 27mm Enhancement: None Washout or pseudocapsule: None. Ancillary features: None Change from prior: Stable LI-RADS: LR-TR nonviable ?? Lesion 2: Segment 7/8 (series 7 through 12, image 50) Size: 22mm, Enhancement: Hypervascular on late arterial phase images. Washout or pseudocapsule: None. Ancillary features: None Change from prior: Increased LI-RADS: LR-4 (increased from LR-3) ?? Cluster of multiple small late arterial phase enhancing lesions in the LEFT hepatic lobe, not seen on the previous study, however, this may be due to change in technique and improved resolution. These are all LR-3. Partially enhancing approximate 1.4 cm lesion posterior RIGHT hepatic lobe (series 7 through 10, image 50) which exhibits enhancement on the late arterial phase and portal venous phase images. Indeterminate on the three-minute postcontrast images if there is washout. LR-3 ?? Portal Vein: Widely Patent. Varices: Perigastric and perisplenic Ascites: None. Spleen: Normal size, no lesions. ?? Bile ducts: Nondilated. Gallbladder: Dependent cholelithiasis Pancreas: Normal. Adrenals: Normal. Kidneys: Stable, 6.4 cm RIGHT renal cyst ?? Aorta: No aneurysm. Lymph nodes: No enlarged lymph nodes. Bowel: Nondilated, no inflammatory changes. Marrow Signal: Normal. ?? IMPRESSION ?? 1. Lesion 1: Site of prior segment 4 embolization, LR-TR nonviable 2. Lesion 2: Segment 7/8, increased in size, upgraded to LR-4 3. Multiple new LR-3 lesions as described above ASSESSMENT & PLAN: Benjamín Henry is a 66 y.o. male with hepatocellular carcinoma, s/p IR bland embolization of a 55 mm LR-5 lesion in the left hepatic lobe in July 2019, and previously decompensated hepatic cirrhosissecondary to chronic alcohol abuse and hepatitis C infection, genotype 3, which was cured after 24 weeks of Epclusa. He has a history of upper GI bleeding with esophageal varices that have been banded though he has refused nonselective beta-barbara for secondary bleeding prophylaxis. He overall continues to do fairly well from a liver perspective, with MELD 11. He shows no concerning signs or symptoms of further decompensation which is likely related to treating his HCV. Unfortunately, MRI last week showed increase in size of the segment 7/8 lesion noted on prior MRI which changed LiRADS designation from 3-4 (indeterminate to probable HCC). We discussed his case earlier this week in liver tumor conference and the recommendation from the board was to treat this lesion with either microwave ablation (preferred) or repeat planned embolization. Had a thorough discussion with him about these options and he seems hesitant to try either given his bad experience in the hospital last time with pain control. I asked that he consider treatment and he eventually agreed to a discussion with Dr. Berger on the phone about these specific options and what to expect. We continue to discuss the ongoing harms of daily alcohol use however he adamantly refuses considering discontinuation. He may consider decreasing his intake if his pain was under better control, so fernando discussed that he should follow-up with plan for pain clinic evaluation for his chronic joint pains and muscle aches. He absolutely must stop acetaminophen if he continues to drink alcohol. I do think he would benefit from some other long-term pain control. I am curious whether he might benefit from naltrexone for this and to help with decreasing alcohol cravings. Plan: -Recommend ablation/embolization of LR-4 lesion -patient requests phone call from Dr. Berger to discuss risks/benefits of both options. -If he declines treatment, recommend short-term follow-up MRI in 3 months. -I will rerefer him to Pain Clinic for chronic leg pain management. -He is overdue for EGD to follow-up varices. Case request is still active, will ask endoscopy schedulers to contact him. -Continue efforts to cut down alcohol use is much as possible, and strongly advised he discontinue acetaminophen. -Hepatology clinic follow-up TBD based on whether he pursues treatment of his lesion, likely in approximately 3 months regardless. Time spent reviewing records prior to this encounter: 5 minutes Time spent during encounter with patient including counselin minutes Time spent documenting encounter on date of service: 12 minutes Approximate total time devoted to this single encounter on date of service: 47 minutes [facility] Gastroenterology [place] [address] Cc: Camron Suarez MD @[email or web address]@ documented in this encounter Plan of Treatment Scheduled Procedures Name Priority Associated Diagnoses Date/Time EGD, UPPER GI ENDOSCOPY Alcoholic cirrhosis, uns pecified whether ascites present Portal hypertension Scheduled Referrals Name Type Priority Associated Order Schedule Diagnoses Referral to Pain Outpatient Referral Routine Chronic pain Orde red: Management syndrome 06/23/2021 documented as of this encounter Goals Goal Patient Goal Associated Recent Patient-Stated? Author Type Problems Progress DH Home Medication Patient On track No Elier , Compliance and Facing (03/15/2020 Milli Carpenter Understanding Action Plan 12:42 PM [facility] EDT) Note: Formatting of this note might be d ifferent from the original. SVR12 through treatment with Epclusa x 2 4 weeks documented as of this encounter Visit Diagnoses Diagnosis Alcoholic cirrhosis of liver without asc ites - Primary Alcoholic cirrhosis of liver HCC (hepatocellular carcinoma) Malignant neoplasm of liver, primary Portal hypertension History of hepatitis C Personal history of other infectious and parasitic disease Chronic pain syndrome documented in this encounter Care Teams Procurement Intern Relationship Specialty Start Date End Date Camron Suarez MD PCP - General Family Medicine 05/19/[address] [place] [address] [id number] documented as of this encounter
--- OUTSIDE RECORDS SUMMARY | 2022-07-21 01:17 | XMS_ITS | Continuity of Care Document ---
:1955 Author Organization [facility] Address [address] [place] [address] Phone Care Team Providers Name Role Phone [...] Unavailable Enoc Suarezick Jayden Attending Provider Unavailable Allergies, Adverse Reactions, Alerts [...] TIMES A 2018 -Milk Thistle DAY 9:27am Vlzyswzp-Ain-S Active 1 TAB ORAL DAILY September hoi-Pjbma-[id number] 2018 K1 9:27am Problems Active Problems Medical [...] Resolved Procedures Procedure Date Performed Status EGD BIOPSY SINGLE/MULTIPLE October 01, 2018 active Relevant Diagnostic Tests and/or Laboratory Data Laboratory Results Test Date/Time Result Interpretation Reference Result Comment Performing Range Site White Blood July 4.28 4.8-10.8 MAIN LAB , [address] [place] [address] 2017 1000/mm3 10:00am [place] [address] White Blood September 3.87 4.8-10.8 MAIN LAB , [address] [place] [address] 2018 1000/mm3 9:42am [place] [address] White Blood December 4th, 4.01 4.8-10.8 MAIN LA B, [address] [place] [address] 2018 1000/mm3 10:27am [place] [address] White Blood April 4.81 4.8-10.8 MAIN LAB , [address] [place] [address] 2018 1000/mm3 10:15am [place] [address] Red Blood July 4.14 4.70-6.00 MAIN LAB, [address] [place] [address] 2017 M/mm3 10:00am [place] [address] Red Blood September 5.10 4.70-6.00 MAIN LAB, [address] [place] [address] 2018 M/mm3 9:42am [place] [address] Red Blood December 26, 4.29 4.70-6.00 MAIN LAB, [address] [place] [address] 2018 M/mm3 10:27am [place] [address] Red Blood April 3.80 4.70-6.00 MAIN LAB, [address] [place] [address] 2018 M/mm3 10:15am [place] [address] Hemoglobin July 9.4 g/dL 14.0-18.0 MAIN LAB, [address] [place] [address] 2017 10:00am [place] [address] Hemoglobin September 11.7 g/dL 14.0-18.0 MAIN LAB, [address] [place] [address] 2018 9:42am [place] [address] Hemoglobin December 26, 8.9 g/dL 14.0-18.0 MAIN LAB , [address] [place] [address] 2018 10:27am [place] [address] Hemoglobin April 8.5 g/dL 14.0-18.0 MAIN LAB, [address] [place] [address] 2018 10:15am [place] [address] Hematocrit July 32.2 % MAIN LAB, [address] [place] [address] 2017 10:00am [place] [address] Hematocrit September 39.6 % MAIN LAB, [address] [place] [address] 2018 9:42am [place] [address] Hematocrit December 26, 32.0 % MAIN LAB , [address] [place] [address] 2018 10:27am [place] [address] Hematocrit April 29.7 % MAIN LAB, [address] [place] [address] 2018 10:15am [place] [address] Mean July 77.8 fL 80.0-94.0 MAIN LAB, [address] [place] [address] [facility] 2017 Volume 10:00am [place] [address] Mean September 77.6 fL 80.0-94.0 MAIN LAB, [address] [place] [address] [facility] 2018 Volume 9:42am [place] [address] Mean December 26, 74.6 fL 80.0-94.0 Result MAIN LAB, [address] [place] [address] 2018 confirmed by Volume 10:27am [place] [address] analysis. Mean April 78.2 fL 80.0-94.0 MAIN LAB, [address] [place] [address] [facility] 2018 Volume 10:15am [place] [address] Mean July 22.7 pg 27-31 MAIN LAB, [address] [place] [address] Corpuscular 2017 Hemoglobin 10:00[place] [address] Mean September 22.9 pg 27-31 MAIN LAB, [address] [place] [address] Corpuscular 2018 Hemoglobin 9:42[place] [address] Mean December 26, 20.7 pg 27-31 Result MAIN LAB, [address] [place], [place] [address] 2018 confirmed by Hemoglobin 10:27[place] [address] analysis. --- 12/26/182024 ---MCH previously reported as: 20.7 L pg Mean April 22.4 pg - MAIN LAB, [address] [place] [address] Corpuscular 2018 Hemoglobin 10:15[place] [address] Mean July 29.2 g/dL MAIN LAB, [address] [place] [address] Corpuscular 2017 Hemoglobin 10:00[place] [address] Concent Mean September 29.5 g/dL MAIN LAB, [address] [place] [address] Corpuscular 2018 Hemoglobin 9:42[place] [address] Concent Mean December 26, 27.8 g/dL MAIN LAB, [address] [place] [address] Corpuscular 2018 Hemoglobin 10:27[place] [address] Concent Mean April 28.6 g/dL MAIN LAB, [address] [place] [address] Corpuslar 2018 Hemoglobin 10:15am [place] [address] Concent Red Cell July 18.0 % 11.5-14.5 MAIN LAB, [address] [place] [address] 2017 Width 10:00am [place] [address] Red Cell September 24.9 % 11.5-14.5 MAIN LAB, [address] [place] [address] 2018 Width 9:42am [place] [address] Red Cell December 26, 18.4 % 11.5-14.5 MAIN LAB, [address] [place] [address] 2018 Width 10:27am [place] [address] Red Cell April 22.1 % 11.5-14.5 MAIN LAB, [address] [place] [address] 2018 Width 10:15am [place] [address] Platelet Count July 113 140-440 MAIN LAB, [address] [place] [address] 2017 1000/mm3 10:00am [place] [address] Platelet Count September 101 140-440 MAIN LAB, [address] [place] [address] 2018 1000/mm3 9:42am [place] [address] Platelet Count December 26, 107 140-440 MAIN LAB, [address] [place] [address] 2018 1000/mm3 10:27am [place] [address] Platelet Count April 143 140-440 MAIN LAB, [address] [place] [address] 2018 1000/mm3 10:15am [place] [address] Mean Platelet July 11.0 fL 7.4-10.4 MAIN L AB, [address] [place] [address] Volume 2017 10:00am [place] [address] Mean Platelet September 10.0 fL 7.4-10.4 MAIN L AB, [address] [place] [address] Volume 2018 9:42am [place] [address] Mean Platelet December 26, 10.9 fL 7.4-10.4 MAIN LAB, [address] [place] [address] Volume 2018 10:27am [place] [address] Mean Platelet April 11.5 fL 7.4-10.4 MAIN L AB, [address] [place] [address] Volume 2018 10:15am [place] [address] Platelet December 26, Adequate MAIN LAB, [address] [place] [address] Estimate 2018 10:27am [place] [address] Target Cells December 26, 2+ MAIN L AB, [address] [place] [address] 2018 10:27am [place] [address] Sodium Level July 137 137-145 MAIN LA B, [address] [place] [address] 2017 mmol/L 10:00am [place] [address] Sodium Level September 136 137-145 MAIN LA B, [address] [place] [address] 2018 mmol/L 9:42am [place] [address] Sodium Level December 26, 136 137-145 MAIN L AB, [address] [place] [address] 2018 mmol/L 10:27am [place] [address] Sodium Level April 135 137-145 MAIN LA B, [address] [place] [address] 2018 mmol/L 10:15am [place] [address] Potassium July 3.7 3.6-5.0 MAIN LAB, [address] [place] [address] Level 2017 mmol/L 10:00am [place] [address] Potassium September 3.5 3.6-5.0 MAIN LAB, [address] [place] [address] Level 2018 mmol/L 9:42am [place] [address] Potassium December 26, 4.1 3.6-5.0 MAIN LAB, [address] [place] [address] 2018 mmol/L 10:27am [place] [address] Potassium April 3.4 3.6-5.0 MAIN LAB, [address] [place] [address] 2018 mmol/L 10:15am [place] [address] Chloride Level July 104 98-107 MAIN LAB, [address] [place] [address] 2017 mmol/L 10:00am [place] [address] Chloride Level September 98-107 MAIN LAB, [address] [place] [address] 2018 mmol/L 9:42am [place] [address] Chloride Level December 26, 98-107 MAIN LAB, [address] [place] [address] 2018 mmol/L 10:27am [place] [address] Chloride Level April 98-107 MAIN LAB, [address] [place] [address] 2018 mmol/L 10:15am [place] [address] Carbon Dioxide July 26 mmol/L - MAIN LAB, [address] [place] [address] 2017 10:00am [place] [address] Carbon Dioxide October 20 mmol/L MAIN LAB, [address] [place] [address] 2018 9:42am [place] [address] Carbon Dioxide December 26, 28 mmol/L MAIN LAB, [address] [place] [address] 2018 10:27am [place] [address] Carbon Dioxide April 25 mmol/L MAIN LAB, [address] [place] [address] 2018 10:15am [place] [address] Anion Gap July 3104-08 MAIN LAB, [address] [place] [address] 2017 10:00am [place] [address] Anion Gap September 2904-08 MAIN LAB, [address] [place] [address] 2018 9:42am [place] [address] Anion Gap December 2604-08 MAIN LAB, [address] [place] [address] 2018 10:27am [place] [address] Anion Gap May 0104-08 MAIN LAB, [address] [place] [address] 2018 10:15am [place] [address] Blood Urea July 9 mg/dL 05-19 MAIN LAB, [address] [place] [address] Nitrogen 2017 10:00am [place] [address] Blood Urea September 7 mg/dL 05-19 MAIN LAB, [address] [place] [address] Nitrogen 2018 9:42am [place] [address] Blood Urea December 26, 10 mg/dL 05-19 MAIN LAB , [address] [place] [address] Nitrogen 2018 10:27am [place] [address] Blood Urea April 7 mg/dL 05-19 MAIN LAB, [address] [place] [address] Nitrogen 2018 10:15am [place] [address] Creatinine July 0.91 0.66-1.25 MAIN LAB, [address] [place] [address] 2017 mg/dL 10:00am [place] [address] Creatinine September 0.77 0.66-1.25 MAIN LAB, [address] [place] [address] 2018 mg/dL 9:42am [place] [address] Creatinine December 26, 0.73 0.66-1.25 MAIN LAB , [address] [place] [address] 2018 mg/dL 10:27am [place] [address] Creatinine April 0.73 0.66-1.25 MAIN LAB, [address] [place] [address] 2018 mg/dL 10:15am [place] [address] Glomerular July > 60 >60.0 MAIN LAB, [address] [place] [address] 2017 mL/min Rate Calc 10:00am [place] [address] Glomerular September > 60 >60.0 MAIN LAB, [address] [place] [address] 2018 mL/min Rate Calc 9:42am [place] [address] Glomerular December 26, > 60 >60.0 MAIN LAB , [address] [place] [address] 2018 mL/min Rate Calc 10:27am [place] [address] Glomerular April > 60 >60.0 MAIN LAB, [address] [place] [address] 2018 mL/min Rate Calc 10:15am [place] [address] Glucose Level July 99 mg/dL 70-100 MAIN L AB, [address] [place] [address] 2017 10:00am [place] [address] Glucose Level September 108 mg/dL 70-100 MAIN L AB, [address] [place] [address] 2018 9:42am [place] [address] Glucose Level December 26, 103 mg/dL 70-100 MAIN LAB, [address] [place] [address] 2018 10:27am [place] [address] Glucose Level April 93 mg/dL 70-100 MAIN L AB, [address] [place] [address] 2018 10:15am [place] [address] Calcium Level July 8.1 mg/dL 8.4-10.2 MAIN L AB, [address] [place] [address] 2017 10:00am [place] [address] Calcium Level September 8.9 mg/dL 8.4-10.2 MAIN L AB, [address] [place] [address] 2018 9:42am [place] [address] Calcium Level December 26, 8.8 mg/dL 8.4-10.2 MAIN LAB, [address] [place] [address] 2018 10:27am [place] [address] Calcium Level April 8.0 mg/dL 8.4-10.2 MAIN L AB, [address] [place] [address] 2018 10:15am [place] [address] Calcium July 9.1 mg/dL 8.4-10.2 MAIN LAB, [address] [place] [address] Adjusted for 2017 Albumin 10:00am [place] [address] Calcium September 9.5 mg/dL 8.4-10.2 MAIN LAB, [address] [place] [address] Adjusted for 2018 Albumin 9:42am [place] [address] Calcium December 26, 9.6 mg/dL 8.4-10.2 MAIN LAB, [address] [place] [address] Adjusted for 2018 Albumin 10:27am [place] [address] Calcium April 9.1 mg/dL 8.4-10.2 MAIN LAB, [address] [place] [address] Adjusted for 2018 Albumin 10:15am [place] [address] Transferrin July 301 mg/dL 201-352 Test Performed [facility] 2017 by:THE LABORATOR IES 10:00am [facility] [place] [address] Transferrin December 26, 337 mg/dL 201-352 Test performed [facility] 2018 or referred LABORATO DANIELA 10:27am [facility] [place] [address] Total July 1.2 mg/dL 0.2-1.3 MAIN LAB, [address] [place] [address] Bilirubin 2017 10:00am [place] [address] Total September 2.2 mg/dL 0.2-1.3 MAIN LAB, [address] [place] [address] Bilirubin 2018 9:42am [place] [address] Total December 26, 1.4 mg/dL 0.2-1.3 MAIN LAB, [address] [place] [address] Bilirubin 2018 10:27am [place] [address] Total April 1.6 mg/dL 0.2-1.3 MAIN LAB, [address] [place] [address] Bilirubin 2018 10:15am [place] [address] Aspartate July 69 U/L MAIN LAB, [address] [place] [address] Amino Transf 2017 (AST/SGOT) 10:00[place] [address] Aspartate September 71 U/L MAIN LAB, [address] [place] [address] Amino Transf 2018 (AST/SGOT) 9:42[place] [address] Aspartate December 26, 72 U/L MAIN LAB, [address] [place] [address] Amino Transf 2018 (AST/SGOT) 10:27[place] [address] Aspartate April 95 U/L MAIN LAB, [address] [place] [address] Amino Transf 2018 (AST/SGOT) 10:15[place] [address] Alanine July 46 U/L MAIN LAB, [address] [place] [address] Aminotransfera 2017 se (ALT/SGPT) 10:00[place] [address] Alanine September 37 U/L MAIN LAB, [address] [place] [address] Aminotransfera 2018 se (ALT/SGPT) 9:42[place] [address] Alanine December 26, 40 U/L MAIN LAB, [address] [place] [address] Aminotransfera 2018 se (ALT/SGPT) 10:27[place] [address] Alanine April 66 U/L MAIN LAB, [address] [place] [address] Aminotransfera 2018 se (ALT/SGPT) 10:15[place] [address] Total Protein July 7.3 g/dL 6.3-8.2 MAIN L AB, [address] [place] [address] 2017 10:00am [place] [address] Total Protein September 8.3 g/dL 6.3-8.2 MAIN L AB, [address] [place] [address] 2018 9:42am [place] [address] Total Protein December 26, 8.0 g/dL 6.3-8.2 MAIN LAB, [address] [place] [address] 2018 10:27am [place] [address] Total Protein April 6.9 g/dL 6.3-8.2 MAIN L AB, [address] [place] [address] 2018 10:15am [place] [address] Albumin July 3.1 g/dL 3.5-5.0 MAIN LAB, [address] [place] [address] 2017 10:00am [facility] [address] Albumin September 3.6 g/dL 3.5-5.0 MAIN LAB, [address] [place] [address] 2018 9:42am [facility] [address] Albumin December 26, 3.3 g/dL 3.5-5.0 MAIN LAB, [address] [place] [address] 2018 10:27am [facility] [address] Albumin April 2.9 g/dL 3.5-5.0 MAIN LAB, [address] [place] [address] 2018 10:15am [facility] [address] Cholesterol September 110 mg/dL 59-199 MAIN LAB , [address] [place] [address] [facility] [address] HDL September 46 mg/dL 40-60 The National MAIN LA B, [address] [place] [address] Cholesterol 2018 Cholesterol 9:42am [facility] [place] [address] Program (NCEP) has set the following guidelines (reference values) for cholesterol, HDL:Low HDL: <40 mg/dLNormal: 40-60 mg/dLDesirable : >60 mg/dL LDL September 50.0 0-129 MAIN LAB, [address] [place] [address] Cholesterol 2018 mg/dL 9:42am [facility] [address] VLDL September 14.0 0-32 MAIN LAB, [address] [place] [address] Cholesterol 2018 mg/dL 9:42am [facility] [address] Cholesterol/HD September 2.39 0-3.9 MAIN LAB, [address] [place] [address] L Ratio 2018 9:42am [facility] [address] Triglycerides September 70 mg/dL 0-149 MAIN L AB, [address] [place] [address] 2018 9:42am [facility] [address] Alkaline July 124 U/L 38-126 MAIN LAB, [address] [place] [address] Phosphatase 2017 10:00am [facility] [address] Alkaline September 122 U/L 38-126 MAIN LAB, [address] [place] [address] Phosphatase 2018 9:42am [facility] [address] Alkaline December 26, 145 U/L 38-126 MAIN LAB, [address] [place] [address] Phosphatase 2018 10:27am [place] [address] Alkaline April 135 U/L 38-126 MAIN LAB, [address] [place] [address] Phosphatase 2018 10:15am [place] [address] Thyroid July 6.50 0.47-4.68 TSH cascade is MAIN LAB, [address] [place] [address] 2017 mlU/L not Hormone (TSH) 10:00am [place] [address] for patients in which pituitary or hypothalmic disorders are suspected. Thyroid September 7.81 0.47-4.68 TSH cascade is MAIN LAB, [address] [place] [address] 2018 mlU/L not Hormone (TSH) 9:42am [place] [address] for patients in which pituitary or hypothalmic disorders are suspected. Thyroid December 26, 5.63 0.47-4.68 TSH cascade is MAIN LAB, [address] [place] [address] 2018 mlU/L not Hormone (TSH) 10:27am [place] [address] for patients in which pituitary or hypothalmic disorders are suspected. Thyroid April 7.15 0.47-4.68 TSH cascade is MAIN LAB, [address] [place] [address] 2018 mlU/L not Hormone (TSH) 10:15am [place] [address] for patients in which pituitary or hypothalmic disorders are suspected. Free Thyroxine July 1.14 0.78-2.19 MAIN LAB, [address] [place] [address] 2017 ng/dL 10:00am [place] [address] Free Thyroxine September 1.12 0.78-2.19 MAIN LAB, [address] [place] [address] 2018 ng/dL 9:42am [place] [address] Free Thyroxine December 26, 0.96 0.78-2.19 MAIN LAB, [address] [place] [address] 2018 ng/dL 10:27am [place] [address] Free Thyroxine April 1.25 0.78-2.19 MAIN LAB, [address] [place] [address] 2018 ng/dL 10:15am [place] [address] Hemoglobin A1c July 5.06 % <5.7%: MAIN LAB, [address] [place] [address] 2017 Normal5.7%-6.4 10:00am %: [place] [address] Prediabetes>=6 .5%: Diagnostic for diabetesGoals for Glycemic Control in Diabetes (ADA 2018)<7.0%: A1c target for non adults with diabetes. More or less stringent glycemic goals may be appropriate for individual patients.<7.5% : A1c target for children and adolescents with type I diabetes. A lower goal is reasonable if it can be achieved without excessive hypoglycemia. Hemoglobin A1c December 26, 5.43 % <5.7%: MAIN LAB, [address] [facility] Percent 2018 Normal5.7%-6.4 10:27am %: [place] [address] Prediabetes>=6 .5%: Diagnostic for diabetesGoals for Glycemic Control in Diabetes (ADA 2018)<7.0%: A1c target for non adults with diabetes. More or less stringent glycemic goals may be appropriate for individual patients.<7.5% : A1c target for children and adolescents with type I diabetes. A lower goal is reasonable if it can be achieved without excessive hypoglycemia. Hemoglobin A1c April 5.34 % <5.7%: MAIN LAB, [address] [place] [address] Percent 2018 Normal5.7%-6.4 10:15am %: [place] [address] Prediabetes>=6 .5%: Diagnostic for diabetesGoals for Glycemic Control in Diabetes (ADA 2018)<7.0%: A1c target for non adults with diabetes. More or less stringent glycemic goals may be appropriate for individual patients.<7.5% : A1c target for children and adolescents with type I diabetes. A lower goal is reasonable if it can be achieved without excessive hypoglycemia. Estimated July 99 mg/dL MAIN LAB, [address] [facility] Average 2017 Glucose mg/dL 10:00am [place] [address] Estimated December 26, 109 mg/dL MAIN LAB, [address] [place] [address] Average 2018 Glucose mg/dL 10:27[place] [address] Estimated April 107 mg/dL MAIN LAB, [address] [place] [address] Average 2018 Glucose mg/dL 10:15[place] [address] Ferritin August 06.4 22-322 The results of MAIN LAB, [address] [place] [address] 2017 ng/mL this assay can 10:00[place] [address] decreased in patients who consume Biotin. Ferritin December 2607.02 The results of MAIN LAB, [address] [facility] 2018 ng/mL this assay can 10:27[place] [address] decreased in patients who consume Biotin. Ferritin 06.29 The results of MAIN LAB, [address] [facility] 2018 ng/mL this assay can 10:15[place] [address] decreased in patients who consume Biotin. Chief Complaint and Reason for Visit Chief Complaint DETOXING Hematemesis Encounters Encounter Location(s) Arrival/Admit Date Discharge/Depart Date Provider(s) Departed [facility] July 16, 2018 July 16, 2018 [facility] 5:32pm 7:02pm Center-Emergency Department Departed [facility] August 20, August 20, 2018 Camron Suarez Referred Medical 2017 7:51pm 7:52pm MD [facility] Departed [facility] September 12September 12, 2018 [facility] Physician/Merged With [facility] 2017 12:00am Medent ider Office [facility] Departed [facility] October 01, 2018 October 01, 2018 Mindy Lehman [facility] 9:04am 11:58am MD [facility] Departed [facility] October 08, 2018 October 08, 2018 Luzmaria Suarez Referred Medical 9:42am 9:43am MD [facility] Departed [facility] December 26, 2018 December 26, 2018 Camron recinos Referred Medical 10:27am 10:28am MD [facility] Departed [facility] May 02, 2019 May 02, 2019 Camron varner Referred Medical 10:15am 10:16am MD [facility] Assessments No Assessments Information Available Family History [...] BERE EISENBERG Address [address] [facility] [address] Contact Info. Home Phone: Payer Policy Id Coverage Id Subscriber's Subscriber Id Effective E xpiration Name Date [place] [id number] BERE EISENBERG [id number] [place] SELF PAY Self N/A [place] [id number] BERE EISENBERG [id number] June 28, (DO NOT USE) 2015 Social History Assigned Sex Male Vital Signs Vital Reading Result Reference Range Collection Date/ Time Weight 97.52 kg July 16, 5:41pm Body Temperature 98.1 [degF] 97.6-99.6 July 16, 2 018 5:41pm Heart Rate 81 /min 60-100 July 16, 5:41pm Respiratory rate 18 /min -July 16, 2 018 5:41pm Oxygen saturation by Pulse 98 % 95-100 [facility] 5:41pm oximetry BP Systolic 130 mm[Hg] 100-140 July 16, 5:41pm BP Diastolic 76 mm[Hg] 50-85 July 16, 5:41pm Height 72 [in_i] September 12, 2 018 8:38am Weight 97.52 kg September 12, 2 018 8:38am Heart Rate 63 /min 60-100 September 12, 2 018 8:38am Respiratory rate 16 /min -September 12, 2018 8:38am Oxygen saturation by Pulse 99 % 95-100 Decem 2017 8:38am oximetry BP Systolic 119 mm[Hg] 100-140 September 12, 2 018 8:38am BP Diastolic 74 mm[Hg] 50-85 September 12, 2 018 8:38am Height 72 [in_i] October 01 9:38am Weight 97.52 kg October 01 9:38am Body Temperature 98.1 [degF] 97.6-99.6 October 01 11:22am Heart Rate 64 /min 60-100 October 01 11:45am Respiratory rate 18 /min -October 01 11:45am Oxygen saturation by Pulse 97 % 95-100 Sep 2018 11:45am oximetry BP Systolic 167 mm[Hg] 100-140 October 01 9 11:45am BP Diastolic 87 mm[Hg] 50-85 October 01 201 9 11:45am
--- OUTSIDE RECORDS SUMMARY | 2022-07-21 01:17 | XMS_ITS | Continuity of Care Document ---
:[address] [facility] Address [address] [place] [address] Phone Care Team Providers Name Role Phone [...] Unavailable Enoc Suarezick Jayden Attending Provider Unavailable Camron Suarez Primary Care [...] TIMES A 2018 -Milk Thistle DAY 9:27am Qtzrbocd-Mmd-Y Active 1 TAB ORAL DAILY September had-Enifk-Ssr 2018 K1 9:27am Problems Active Problems Medical [...] Blood July 4.28 4.8-10.8 MAIN LAB , [address] [place] [address] Street [facility] 2017 1000/mm3 10:00am [place] [address] White Blood September 3.87 4.8-10.8 MAIN LAB , [address] [place] [address] 2018 1000/mm3 9:42am [place] [address] White Blood December 26, 4.01 4.8-10.8 MAIN LA B, [address] [place] [address] 2018 1000/mm3 10:27am [place] [address] White Blood April 4.81 4.8-10.8 MAIN LAB , [address] [place] [address] 2018 1000/mm3 10:15am [place] [address] White Blood June 3.55 4.8-10.8 MAIN LAB , [address] [place] [address] 2018 1000/mm3 10:55am [place] [address] Red Blood July 4.14 M/mm3 4.70-6.00 MAIN LAB, [address] [place] [address] Street Count 2017 10:00am [place] [address] Red Blood September 5.10 M/mm3 4.70-6.00 MAIN LAB, [address] [place] [address] Street [facility] 2018 9:42am [place] [address] Red Blood December 26, 4.29 M/mm3 4.70-6.00 MAIN LAB , [address] [place] [address] 2018 10:27am [place] [address] Red Blood April 3.80 M/mm3 4.70-6.00 MAIN LAB, [address] [place] [address] Street [facility] 2018 10:15am [place] [address] Red Blood June 4.66 M/mm3 4.70-6.00 MAIN LAB, [address] [place] [address] Count 2018 10:55am [place] [address] Hemoglobin July 9.4 g/dL 14.0-18.0 MAIN LAB, [address] [place] [address] 2017 10:00am [place] [address] Hemoglobin September 11.7 g/dL 14.0-18.0 MAIN LAB, [address] [place] [address] 2018 9:42am [place] [address] Hemoglobin December 26, 8.9 g/dL 14.0-18.0 MAIN LAB , [address] [place] [address] 2018 10:27am [place] [address] Hemoglobin April 8.5 g/dL 14.0-18.0 MAIN LAB, [address] [place] [address] 2018 10:15am [place] [address] Hemoglobin June 9.0 g/dL 14.0-18.0 MAIN LAB, [address] [place] [address] 2018 10:55am [place] [address] Hematocrit July 32.2 % 42-52 MAIN LAB, [address] [place] [address] 2017 10:00am [place] [address] Hematocrit September 39.6 % 42-52 MAIN LAB, [address] [place] [address] 2018 9:42am [place] [address] Hematocrit December 26, 32.0 % 42-52 MAIN LAB , [address] [place] [address] 2018 10:27am [place] [address] Hematocrit April 29.7 % 42-52 MAIN LAB, [address] [place] [address] 2018 10:15am [place] [address] Hematocrit June 32.7 % 42-52 MAIN LAB, [address] [place] [address] 2018 10:55am [place] [address] Mean July 77.8 fL 80.0-94.0 MAIN LAB, [address] [place] [address] Corpuscular 2017 Volume 10:00am [place] [address] Mean September 77.6 fL 80.0-94.0 MAIN LAB, [address] [place] [address] Corpuscular 2018 Volume 9:42am [place] [address] Mean December 26, 74.6 fL 80.0-94.0 Result MAIN LAB, [address] [place] [address] Corpuscula 2018 confirmed by Volume 10:27am [place] [address] analysis. Mean April 78.2 fL 80.0-94.0 MAIN LAB, [address] [place] [address] Corpuscular 2018 Volume 10:15am [place] [address] Mean June 70.2 fL 80.0-94.0 MAIN LAB, [address] [place], [place] [address]cular 2018 Volume 10:55am [place] [address] Mean July 22.7 pg - MAIN LAB, [address] [place] [address] Corpuscular 2017 Hemoglobin 10:00[place] [address] Mean September 22.9 pg 27-31 MAIN LAB, [address] [place] [address] Corpuscular 2018 Hemoglobin 9:42[place] [address] Mean December 26, 20.7 pg 27-31 Result MAIN LAB, [address] [place], [place] [address]r 2018 confirmed by Hemoglobin 10:27[place] [address] analysis. --- 12/26/182024 ---MCH previously reported as: 20.7 L pg Mean April 22.4 pg - MAIN LAB, [address] [place] [address] Corpuscular 2018 Hemoglobin 10:15[place] [address] Mean June 19.3 pg - MAIN LAB, [address] [place] [address] Corpuscular 2018 Hemoglobin 10:55[place] [address] Mean July 29.2 g/dL 37 MAIN LAB, [address] [place], [place] [address]cular 2017 Hemoglobin 10:00[place] [address] Concent Mean September 29.5 g/dL MAIN LAB, [address] [place] [address] Corpuscular 2018 Hemoglobin 9:42[place] [address] Concent Mean December 26, 27.8 g/dL - MAIN LAB, [address] [place], [place] [address]lar 2018 Hemoglobin 10:27[place] [address] Concent Mean April 28.6 g/dL - MAIN LAB, [address] [place] [address] Corpuscular 2018 Hemoglobin 10:15am [place] [address] Concent Mean June 27.5 g/dL MAIN LAB, [address] [place] [address] Corpuscular 2018 Hemoglobin 10:55[place] [address] Concent Red Cell July 18.0 % 11.5-14.5 MAIN LAB, [address] Distribution 2017 Width 10:00am [place] [address] Red Cell September 24.9 % 11.5-14.5 MAIN LAB, [address] Distribution 2018 Width 9:42am [place] [address] Red Cell December 26, 18.4 % 11.5-14.5 MAIN LAB, [address] Distribution 2018 Width 10:27am [place] [address] Red Cell April 22.1 % 11.5-14.5 MAIN LAB, [address] Distribution 2018 Width 10:15am [place] [address] Red Cell June 21.7 % 11.5-14.5 MAIN LAB, [address] Distribution 2018 Width 10:55[place] [address] Platelet July 113 140-440 MAIN LAB, [address] [place] [address] Street Count 2017 1000/mm3 10:00am [place] [address] Platelet September 101 140-440 MAIN LAB, [address] Count 2018 1000/mm3 9:42am [place] [address] Platelet December 26, 107 140-440 MAIN LAB, [address] Count 2018 1000/mm3 10:27am [place] [address] Platelet April 143 140-440 MAIN LAB, [address] [place] [address] Street Count 2018 1000/mm3 10:15am [place] [address] Platelet June 104 140-440 MAIN LAB, [address] Count 2018 1000/mm3 10:55am [place] [address] Mean Platelet July 11.0 fL 7.4-10.4 MAIN L AB, [address] Volume 2017 10:00am [place] [address] Mean Platelet September 10.0 fL 7.4-10.4 MAIN L AB, [address] Volume 2018 9:42am [place] [address] Mean Platelet December 26, 10.9 fL 7.4-10.4 MAIN LAB, [address] Volume 2018 10:27am [place] [address] Mean Platelet April 11.5 fL 7.4-10.4 MAIN L AB, [address] Volume 2018 10:15am [place] [address] Mean Platelet June 10.4 fL 7.4-10.4 MAIN L AB, [address] [place] [address] Volume 2018 10:55am [place] [address] Neutrophils June 52.9 % 40.0-72.0 MAIN LAB , [address] [place] [address] (%) (Auto) 2018 10:55am [place] [address] Lymphocytes June 22.5 % 17-45 MAIN LAB , [address] [place] [address] (%) (Auto) 2018 10:55am [place] [address] Monocytes (%) June 17.2 % 3-11 MAIN L AB, [address] [place] [address] (Auto) 2018 10:55am [place] [address] Eosinophils June 5.1 % 0-3 MAIN LAB , [address] [place] [address] (%) (Auto) 2018 10:55am [place] [address] Basophils (%) June 2.0 % 0-1 MAIN L AB, [address] [place] [address] (Auto) 2018 10:55am [place] [address] Immature October 0.3 % 0-1 MAIN LAB, [address] [place] [address] Granulocyte % 2018 (Auto) 10:55am [place] [address] Neutrophils # June 1.88 1.4-6.5 MAIN L AB, [address] [place] [address] (Auto) 2018 1000/mm3 10:55am [place] [address] Lymphocytes # June 0.80 1.2-3.4 MAIN L AB, [address] [place] [address] (Auto) 2018 1000/mm3 10:55am [place] [address] Monocytes # June 0.61 0.0-0.8 MAIN LAB , [address] [place] [address] (Auto) 2018 1000/mm3 10:55am [place] [address] Eosinophils # June 0.18 0.0-0.7 MAIN L AB, [address] [place] [address] (Auto) 2018 1000/mm3 10:55am [place] [address] Basophils # June 0.07 0.0-0.1 MAIN LAB , [address] [place] [address] (Auto) 2018 1000/mm3 10:55am [place] [address] Absolute October 0.0 0-1 MAIN LAB, [address] [place] [address] Immature 2018 Granulocyte 10:55[place] [address] (auto Differential June Automated MAIN LA B, [address] [place] [address] Method 2018 10:55[place] [address] Platelet December 26, Adequate MAIN LAB, [address] [place] [address] Estimate 2018 10:27am [place] [address] Target Cells December 26, 2+ MAIN L AB, [address] [place] [address] 2018 10:27am [place] [address] Sodium Level July 137 mmol/L 137-145 MAIN L AB, [address] [place] [address] 2017 10:00am [place] [address] Sodium Level September 136 mmol/L 137-145 MAIN L AB, [address] [place] [address] 2018 9:42am [place] [address] Sodium Level December 26, 136 mmol/L 137-145 MAIN LAB, [address] [place] [address] 2018 10:27am [place] [address] Sodium Level April 135 mmol/L 137-145 MAIN L AB, [address] [place] [address] 2018 10:15am [place] [address] Potassium July 3.7 mmol/L 3.6-5.0 MAIN LAB, [address] [place] [address] 2017 10:00am [place] [address] Potassium September 3.5 mmol/L 3.6-5.0 MAIN LAB, [address] [place] [address] 2018 9:42am [place] [address] Potassium December 26, 4.1 mmol/L 3.6-5.0 MAIN LAB , [address] [place] [address] 2018 10:27am [place] [address] Potassium April 3.4 mmol/L 3.6-5.0 MAIN LAB, [address] [place] [address] 2018 10:15am [place] [address] Chloride July 104 mmol/L 98-107 MAIN LAB, [address] [place] [address] 2017 10:00am [place] [address] Chloride September 103 mmol/L 98-107 MAIN LAB, [address] [place] [address] 2018 9:42am [place] [address] Chloride December 26, 101 mmol/L 98-107 MAIN LAB , [address] [place] [address] 2018 10:27am [place] [address] Chloride April 102 mmol/L 98-107 MAIN LAB, [address] [place] [address] 2018 10:15am [place] [address] Carbon July 26 mmol/L MAIN LAB, [address] [place] [address] Dioxide Level 2017 10:00am [place] [address] Carbon September 27 mmol/L MAIN LAB, [address] [place] [address] Dioxide Level 2018 9:42am [place] [address] Carbon December 26, 28 mmol/L MAIN LAB, [address] [place] [address] Dioxide Level 2018 10:27am [place] [address] Carbon April 25 mmol/L MAIN LAB, [address] [place] [address] Dioxide Level 2018 10:15am [place] [address] Anion Gap July 3104-08 MAIN LAB, [address] [place] [address] 2017 10:00am [place] [address] Anion Gap September 2904-08 MAIN LAB, [address] [place] [address] 2018 9:42am [place] [address] Anion Gap December 2604-08 MAIN LAB, [address] [place] [address] 2018 10:27am [place] [address] Anion Gap May 0104-08 MAIN LAB, [address] [place] [address] 2018 10:15am [place] [address] Blood Urea July 9 mg/dL 05-19 MAIN LAB, [address] [place] [address] 2017 10:00am [place] [address] Blood Urea September 7 mg/dL 05-19 MAIN LAB, [address] [place] [address] Nitrogen 2018 9:42am [place] [address] Blood Urea December 26, 10 mg/dL 05-19 MAIN LAB , [address] [place] [address] 2018 10:27am [place] [address] Blood Urea April 7 mg/dL 05-19 MAIN LAB, [address] [place] [address] Nitrogen 2018 10:15am [place] [address] Creatinine July 0.91 mg/dL 0.66-1.25 MAIN LAB , [address] [place] [address] 2017 10:00am [place] [address] Creatinine September 0.77 mg/dL 0.66-1.25 MAIN LAB , [address] [place] [address] 2018 9:42am [place] [address] Creatinine December 26, 0.73 mg/dL 0.66-1.25 MAIN LA B, [address] [place] [address] 2018 10:27am [place] [address] Creatinine April 0.73 mg/dL 0.66-1.25 MAIN LAB , [address] [place] [address] 2018 10:15am [place] [address] Glomerular July > 60 >60.0 MAIN LAB, [address] [place] [address] 2017 mL/min Rate Calc 10:00am [place] [address] Glomerular September > 60 >60.0 MAIN LAB, [address] [place] [address] 2018 mL/min Rate Calc 9:42am [place] [address] Glomerular December 26, > 60 >60.0 MAIN LAB , [address] [place] [address] 2018 mL/min Rate Calc 10:27am [place] [address] Glomerular April > 60 >60.0 MAIN LAB, [address] [place] [address] 2018 mL/min Rate Calc 10:15am [place] [address] Glucose Level July 99 mg/dL 70-100 MAIN L AB, [address] [place] [address] 2017 10:00am [place] [address] Glucose Level September 108 mg/dL 70-100 MAIN L AB, [address] [place] [address] 2018 9:42am [place] [address] Glucose Level December 26, 103 mg/dL 70-100 MAIN LAB, [address] [place] [address] 2018 10:27am [place] [address] Glucose Level April 93 mg/dL 70-100 MAIN L AB, [address] [place] [address] 2018 10:15am [place] [address] Calcium Level July 8.1 mg/dL 8.4-10.2 MAIN L AB, [address] [place] [address] 2017 10:00am [place] [address] Calcium Level September 8.9 mg/dL 8.4-10.2 MAIN L AB, [address] [place] [address] 2018 9:42am [place] [address] Calcium Level December 26, 8.8 mg/dL 8.4-10.2 MAIN LAB, [address] [place] [address] 2018 10:27am [place] [address] Calcium Level April 8.0 mg/dL 8.4-10.2 MAIN L AB, [address] [place] [address] 2018 10:15am [place] [address] Calcium July 9.1 mg/dL 8.4-10.2 MAIN LAB, [address] [place] [address] Adjusted for 2017 Albumin 10:00am [place] [address] Calcium September 9.5 mg/dL 8.4-10.2 MAIN LAB, [address] [place] [address] Adjusted for 2018 Albumin 9:42am [place] [address] Calcium December 26, 9.6 mg/dL 8.4-10.2 MAIN LAB, [address] [place] [address] Adjusted for 2018 Albumin 10:27am [place] [address] Calcium April 9.1 mg/dL 8.4-10.2 MAIN LAB, [address] [place] [address] Adjusted for 2018 Albumin 10:15am [place] [address] Transferrin July 301 mg/dL 201-352 Test Performed January by:THE LABORATOR IES 10:00am [facility] [place] [address] Transferrin December 26, 337 mg/dL 201-352 Test performed 2018 or referred LAB[facility]ATO DANIELA 10:27am [facility] [place] [address] Transferrin April 289 mg/dL 201-352 Test performed January or referred LABORATO DANIELA 10:15am [facility] [place] [address] Total July 1.2 mg/dL 0.2-1.3 MAIN LAB, [address] [place] [address] Bilirubin 2017 10:00am [place] [address] Total September 2.2 mg/dL 0.2-1.3 MAIN LAB, [address] [place] [address] Bilirubin 2018 9:42am [place] [address] Total December 26, 1.4 mg/dL 0.2-1.3 MAIN LAB, [address] [place] [address] Bilirubin 2018 10:27am [place] [address] Total April 1.6 mg/dL 0.2-1.3 MAIN LAB, [address] [place] [address] Bilirubin 2018 10:15am [place] [address] Aspartate July 69 U/L 17-59 MAIN LAB, [address] [place] [address] Amino Transf 2017 (AST/SGOT) 10:00[place] [address] Aspartate September 71 U/L MAIN LAB, [address] [place] [address] Amino Transf 2018 (AST/SGOT) 9:42[place] [address] Aspartate December 26, 72 U/L MAIN LAB, [address] [place] [address] Amino Transf 2018 (AST/SGOT) 10:27[place] [address] Aspartate April 95 U/L MAIN LAB, [address] [place] [address] Amino Transf 2018 (AST/SGOT) 10:15[place] [address] Alanine July 46 U/L MAIN LAB, [address] [place] [address] Aminotransfer 2017 ase 10:00am [place] [address] (ALT/SGPT) Alanine September 37 U/L MAIN LAB, [address] [place] [address] Aminotransfer 2018 ase 9:42am [place] [address] (ALT/SGPT) Alanine December 26, 40 U/L MAIN LAB, [address] [place] [address] Aminotransfer 2018 ase 10:27am [place] [address] (ALT/SGPT) Alanine April 66 U/L MAIN LAB, [address] [place] [address] Aminotransfer 2018 ase 10:15am [place] [address] (ALT/SGPT) Total Protein July 7.3 g/dL 6.3-8.2 MAIN L AB, [address] [place] [address] 2017 10:00am [place] [address] Total Protein September 8.3 g/dL 6.3-8.2 MAIN L AB, [address] [place] [address] 2018 9:42am [place] [address] Total Protein December 26, 8.0 g/dL 6.3-8.2 MAIN LAB, [address] [place] [address] 2018 10:27am [place] [address] Total Protein April 6.9 g/dL 6.3-8.2 MAIN L AB, [address] [place] [address] 2018 10:15am [place] [address] Albumin July 3.1 g/dL 3.5-5.0 MAIN LAB, [address] [place] [address] 2017 10:00am [place] [address] Albumin September 3.6 g/dL 3.5-5.0 MAIN LAB, [address] [place] [address] 2018 9:42am [place] [address] Albumin December 26, 3.3 g/dL 3.5-5.0 MAIN LAB, [address] [place] [address] 2018 10:27am [place] [address] Albumin April 2.9 g/dL 3.5-5.0 MAIN LAB, [address] [place] [address] 2018 10:15am [place] [address] Cholesterol September 110 mg/dL 59-199 MAIN LAB , [address] [place] [address] 2018 9:42am [place] [address] HDL September 46 mg/dL 40-60 The National MAIN LA B, [address] [place] [address] Cholesterol 2018 Cholesterol 9:42am Education [facility] [address] Program (NCEP) has set the following guidelines (reference values) for cholesterol, HDL:Low HDL: <40 mg/dLNormal: 40-60 mg/dLDesirable : >60 mg/dL LDL September 50.0 mg/dL 0-129 MAIN LAB, [address] [place] [address] Cholesterol 2018 9:42am [place] [address] VLDL September 14.0 mg/dL 0-32 MAIN LAB, [address] [place] [address] Cholesterol 2018 9:42am [place] [address] Cholesterol/H September 2.39 0-3.9 MAIN L AB, [address] [place] [address] DL Ratio 2018 9:42am [place] [address] Triglycerides September 70 mg/dL 0-149 MAIN L AB, [address] [place] [address] 2018 9:42am [place] [address] Alkaline July 124 U/L 38-126 MAIN LAB, [address] [place] [address] Phosphatase 2017 10:00am [place] [address] Alkaline September 122 U/L 38-126 MAIN LAB, [address] [place] [address] Phosphatase 2018 9:42am [place] [address] Alkaline December 26, 145 U/L 38-126 MAIN LAB, [address] [place] [address] Phosphatase 2018 10:27am [place] [address] Alkaline April 135 U/L 38-126 MAIN LAB, [address] [place] [address] Phosphatase 2018 10:15am [place] [address] Thyroid July 6.50 mlU/L 0.47-4.68 TSH cascade is MAIN LAB, [address] [facility] Stimulating 2017 not Hormone (TSH) 10:00am [place] [address] for patients in which pituitary or hypothalmic disorders are suspected. Thyroid September 7.81 mlU/L 0.47-4.68 TSH cascade is MAIN LAB, [address] [facility] Stimulating 2018 not Hormone (TSH) 9:42am [place] [address] for patients in which pituitary or hypothalmic disorders are suspected. Thyroid December 26, 5.63 mlU/L 0.47-4.68 TSH cascade is JUSTINE N LAB, [address] [facility] Stimulating 2018 not Hormone (TSH) 10:27[place] [address] for patients in which pituitary or hypothalmic disorders are suspected. Thyroid April 7.15 mlU/L 0.47-4.68 TSH cascade is MAIN LAB, [address] [facility] Stimulating 2018 not Hormone (TSH) 10:15am [place] [address] for patients in which pituitary or hypothalmic disorders are suspected. Free July 1.14 ng/dL 0.78-2.19 MAIN LAB, [address] Thyroxine 2017 10:00am [place] [address] Free September 1.12 ng/dL 0.78-2.19 MAIN LAB, [address] [facility] Thyroxine 2018 9:42am [place] [address] Free December 26, 0.96 ng/dL 0.78-2.19 MAIN LAB , [address] [facility] Thyroxine 2018 10:27am [place] [address] Free April 1.25 ng/dL 0.78-2.19 MAIN LAB, [address] [facility] Thyroxine 2018 10:15am [place] [address] Hemoglobin July 5.06 % <5.7%: MAIN LAB, [address] [facility] A1c Percent 2017 Normal5.7%-6.4 10:00am %: [place] [address] Prediabetes>=6 .5%: Diagnostic for diabetesGoals for Glycemic [...] 5.43 % <5.7%: MAIN LAB , [address] [facility] A1c Percent 2018 Normal5.7%-6.4 10:27am %: [place] [address] Prediabetes>=6 .5%: Diagnostic for diabetesGoals for Glycemic Control in Diabetes (ADA 2018)<7.0%: A1c target for non adults with diabetes. More or less stringent glycemic goals may be appropriate for individual patients.<7.5% : A1c target for children and adolescents with type I diabetes. A lower goal is reasonable if it can be achieved without excessive hypoglycemia. Hemoglobin April 5.34 % <5.7%: MAIN LAB, [address] [place] [address] A1c Percent 2018 Normal5.7%-6.4 10:15am %: [place] [address] Prediabetes>=6 .5%: Diagnostic for diabetesGoals for Glycemic Control in Diabetes (ADA 2018)<7.0%: A1c target for non adults with diabetes. More or less stringent glycemic goals may be appropriate for individual patients.<7.5% : A1c target for children and adolescents with type I diabetes. A lower goal is reasonable if it can be achieved without excessive hypoglycemia. Estimated July 99 mg/dL MAIN LAB, [address] [place] [address] Average 2017 Glucose mg/dL 10:00am [place] [address] Estimated December 26, 109 mg/dL MAIN LAB, [address] [place] [address] Average 2018 Glucose mg/dL 10:27am [place] [address] Estimated April 107 mg/dL MAIN LAB, [address] [place] [address] Average 2018 Glucose mg/dL 10:15am [place] [address] Ferritin July 13.4 ng/mL 22-322 The results of MAIN LAB, [address] [place] [address] 2017 this assay can 10:00[place] [address] decreased in patients who consume Biotin. Ferritin December 26, 10.9 ng/mL 22-322 The results of JUSTINE N LAB, [address] [place] [address] 2018 this assay can 10:27[place] [address] decreased in patients who consume Biotin. Ferritin April 10.6 ng/mL The results of MAIN LAB, [address] [facility] 2018 this assay can 10:15[place] [address] decreased in patients who consume Biotin. Chief Complaint and Reason for Visit Chief Complaint DETOXING Hematemesis d649 Encounters Encounter Location(s) Arrival/Admit Date Discharge/Depart Date Provider(s) Departed [facility] July 16, 2018 July 16, 2018 tyree holt Emergency [facility] 5:32pm 7:02pm Center-Emergency Department Departed [facility] August 20, August 20, 2018 Camron Suarez Referred Medical 2017 7:51pm 7:52pm MD [facility] Departed [facility] September 12September 12, 2018 [facility] john Physician/Prov Medical 2017 12:00am Medent ider Office [facility] Visit rn [facility] Departed [facility] October 01, 2018 October 01, 2018 Mindy Lehman Surgical Day [facility] 9:04am 11:58am MD Ashley [facility] Departed [facility] October 08, 2018 October 08, 2018 Luzmaria Suarez Referred Medical 9:42am 9:43am MD [facility] Departed [facility] December 26, 2018 December 26, 2018 Camron recinos Referred Medical 10:27am 10:28am MD [facility] Departed [facility] May 02, 2019 May 02, 2019 Camron varner Referred Medical 10:15am 10:16am MD [facility] Departed [facility] July 02, 2019 July 02, 2019 [...] BERE EISENBERG Address [address] [facility] [address] Contact Info. Home Phone: Payer Policy Id Coverage Id Subscriber's Subscriber Id Effective E xpiration Name Date Date [place] OF [id number] BERE EISENBERG [id number] [place] SELF PAY Self N/A [place] [id number] BERE EISENBERG [id number] June 28, (DO NOT USE) 2015 Social [...]
--- OUTSIDE RECORDS SUMMARY | 2022-07-21 01:17 | XMS_ITS | Clinical Summary ---
:1955 Author Organization [facility] [place] [address] Care Team Providers Name Role Phone Camron Suarez MD Primary Care Provider Allergies Active Allergy Reactions Severity Noted Date Comments Aspirin Other (See Comments) 04/20/2019 It madeline es me bleed. Medications Medication Sig Dispensed Refills Start Date End Date Status triamterene-hydrochloro Take 1 capsule by 0 Active thiazide (DYAZIDE) mouth every 37.5-25 mg Capsule morning. acetaminophen (TYLENOL) Take 1 tablet by 0 9 Active 500 mg Tablet mouth every 6 hours as needed for Pain or Fever (Not to exceed 2gm (4 pills) a day). Active Problems Problem Noted Date Chronic pain syndrome 10/17/2020 Alcoholic cirrhosis 10/17/2020 Overview: Added automatically from request for kingston coatesy [id number] Iron deficiency anemia due to chronic blood loss 10/11 Portal hypertension 10/11/2019 HCC (hepatocellular carcinoma) 07/31/2019 History of hepatitis C 06/25/2019 Resolved Problems Problem Noted Date Resolved Date Decompensated hepatic cirrhosis 06/25/2019 06/25/20 19 UGIB (upper gastrointestinal bleed) 04/20/201909/24 Cirrhosis, alcoholic 06/23/2021 Esophageal varices 06/23/2021 Social History Tobacco Use Types Packs/Day Years Used Date Former Smoker Cigarettes, Pipe 0.5 13 Quit: 2000 Smokeless Tobacco: Never Used Tobacco Cessation: Counseling Given: No Alcohol Use Standard Drinks/Week Comments Yes 21 [...] Assigned at Date Recorded Not on file Last Filed Vital Signs Vital Sign Reading Time Taken Comments Blood Pressure 131/83 08/04/2021 2:00 PM EST Pulse 69 08/04/2021 2:00 PM EST Temperature 36.6 ??C (97.9 ??F) 04/01/2020 3:56 PM EDT Respiratory Rate 16 04/01/2020 5:00 PM EDT Oxygen Saturation 98% 08/04/2021 2:00 PM EST Inhaled Oxygen Concentration - - Weight 97.5 kg (215 lb) 08/04/2021 2:00 PM EST Height 182.9 cm (6') 05/09/2021 9:25 AM EDT Body Mass Index 29.16 05/09/2021 9:25 AM EDT Plan of Treatment Scheduled Procedures Name Priority Associated Diagnoses Date/Time EGD, UPPER GI ENDOSCOPY Alcoholic cirrhosis, uns pecified whether ascites present Portal hypertension Health Maintenance Due Date Last Done Comments Covid-19 Vaccine (#1) 1955 Pneumoccocal Vaccine: 65+ (1 - 1961 PCV) Lipid Screening 1973 Tdap adult 1974 Tetanus vaccine 1974 Colonoscopy 02/26/2000 Zoster vaccine (1 of 2) 2005 Advance Directive 2010 AAA Screen 02/26/2020 Influenza (Flu) vaccine (1 of - 05/25/2022 Influenza standard series) Diabetes Screening (HgbA1C or 06/17/2024 06/17/2021, 2020, Glucose) 04/30/2020, Additional history exists Hepatitis C Screening Completed 10/15/2020, 04/30/2020, 02/24/2020, Additional history exists Goals Goal Patient Goal Associated Recent Patient-Stated? Author Type Problems Progress DH Home Medication Patient On track No Elier , Compliance and Facing (03/15/2020 Milli Carpenter, Understanding Action Plan 12:42 PM [facility] EDT) Note: Formatting of this note might be d ifferent from the original. SVR12 through treatment with Epclusa x 2 4 weeks Insurance Payer Benefit Plan / Subscriber ID Effective Dates Phone Addre ss Type Group MEDICARE MEDICARE PART [id number] 2020-Presen [phone] [place] [address] [place] [id number] 2020-Presen [phone] [address] [place] [address] Advance Directives Latest Code Status on File Code Status Date Activated Date Inactivated Comments Full Code 07/31/2019 3:42 PM 08/03/2019 6:41 PM Does patient have capacity to make decision: Yes Full Code 07/31/2019 11:33 AM 07/31/2019 3:29 PM Does patient have capacity to make decision: Yes Full Code 04/20/2019 2:31 AM 04/22/2019 7:18 PM Does patient have capacity to make decision: Yes Care Teams Typer Relationship Specialty Start Date End Date Camron Suarez MD PCP - General Family Medicine 05/19/19 44 [facility] [address] [place] [id number]
--- OUTSIDE RECORDS SUMMARY | 2022-07-21 01:17 | XMS_ITS | Encounter Summary ---
:1955 Author Organization [facility] [place] [address] Care Team Providers Name Role Phone Camron Suarez MD Primary Care Provider Reason for Referral Diagnostic Test (Routine) - Closed Specialty Diagnoses / Procedures Referred By Contact Refer red To Contact Radiology Diagnoses HCC (hepatocellular carcinoma) Alcoholic cirrhosis, unspecified whether ascites present [facility] [address] [place] [address] Rad Mri Procedures MRI Abdomen wwo Contrast (Generic) [place] [address] [place] [address] Referral ID Status Reason Start Date Expiration Date Visits V isits Requested Authorized [id number] Closed Specialty 10/19/2020 04/18/2022 1 1 Service Requested Reason for Visit Diagnostic Test (Routine) - Closed Specialty Diagnoses / Procedures Referred By Contact Refer red To Contact Radiology Diagnoses HCC (hepatocellular carcinoma) Alcoholic cirrhosis, unspecified whether ascites present [facility] [address] [place] [address] Rad Mri Procedures MRI Abdomen wwo Contrast (Generic) [place] [address] [place] [address] Referral ID Status Reason Start Date Expiration Date Visits V isits Requested Authorized [id number] Closed Specialty 10/19/2020 04/18/2022 1 1 Service Requested Encounter Details Date Type Department Care Team Description 06/17/2021 Hospital Encounter MRI at [facility] Jia Bledsoe MD HCC (hepatocellular carcinoma); [facility] Alcoholic cirrhosis, unspecified whether ascites present [facility] [address], [place] [facility] [address] [place], [place] [phone] [facility] Social History Tobacco Use Types Packs/Day Years [...] Dispensed Refills Start Date End Date acetaminophen (TYLENOL) 500 Take 1 tablet by 0 mg Tablet mouth every 6 hours as needed for Pain or Fever (Not to exceed 2gm (4 pills) a day). triamterene-hydrochlorothia Take 1 capsule by 0 zide (DYAZIDE) 37.5-25 mg mouth every morning. Capsule documented as of this encounter Plan of [...] Milli Carpenter Understanding Action Plan 12:42 PM [facility] EDT) Note: Formatting of this note might be d ifferent from the original. SVR12 through treatment with Epclusa x 2 4 weeks documented as of this encounter Procedures Procedure Name Priority Date/Time Associated Diagnosis Comme nts MRI ABDOMEN WWO Routine 06/17/2021 2:44 PM HCC (hepatocellular Results for this CONTRAST EDT carcinoma) procedure are in Alcoholic cirrhosis, the res ults unspecified whether section. ascites present documented in this encounter Results MRI Abdomen wwo Contrast (Generic) (06/17/2021 2:44 PM EDT) Anatomical Region Laterality Modality Abdomen Magnetic Resonance Specimen (Source) Anatomical Location Collection Method / Collectio n Time Received Time / Laterality Volume Impressions 06/17/2021 3:31 PM EDT 1. ??Lesion 1: Site of prior segment 4 e mbolization, LR-TR nonviable 2. ??Lesion 2: Segment 7/8, increased in size, upgraded to LR-4 3. ??Multiple new LR-3 lesions as descri bed above LI-RADS Categories: LR-TIV = Tumor in vein LR-5 = Definitely hepatocellular carcino ma (concordant with OPTN 5) LR-4 = Probably hepatocellular carcinoma LR-3 = Intermediate probability for hepa tocellular carcinoma LR-2 = Probably benign LR-1 = Definitely benign LR-TR Viable = Treated, probably or defi nitely viable LR-TR Equivocal = Treated, equivocal via ble LR-TR Nonviable = Treated, probably or d efinitely not viable LR-TR Nonevaluable = Treated, Response n ot evaluable (due to image omission or degradation) LR-M = Probably or definitely malignant but not HCC specific LR-NC = Not categorizable (due to image omission or degradation) NOTE: LI-RADS categories should be inter preted in the context of other available data, such as biomarkers and the patient 's prior probability of developing or having hepatocellular carcinoma. The LI- RADS / OPTN classification of liver lesions has been adopted to standardize CT and MRI scan reporting in patients at risk for hepatocellular carcinoma. The i maging criteria for definite hepatocellular carcinoma are concordant for the LI-RADS and OPTN systems. LI-RADS criteria and documentation are a vailable online at https://www.acr.org/Clinical-Resources/R escnigsx-yzp-Ojwo-Systems/LI-RADS. This report utilizes LI-RADS version 2018. Thank you for letting us participate in the care of this patient. ??If you are a health care provider and have any questi ons regarding this report, please contact the number below. ??For patients who have questions please contact the health child caregiver private home that requested your imaging first. ? 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 HCC. ??s/p B land Embo ??6 month follow up surveillance. TECHNIQUE: MRI of the abdomen was perfor med with images obtained prior to and following the intravenous administration of 20ml of Dotarem using the dynamic liver protocol. COMPARISONS: 10/15/2020 and 02/24/2020 FINDINGS: Prior hepatic interventions: LEFT hepati c lobe embolization from segment 4 LEFT hepatic artery branch, 07/31/2019 Liver Morphology: Lobulated contour with hypertrophy of the caudate lobe, grossly stable. Heterogeneous signal pat tern on the T2-weighted images, compatible with cirrhotic change. Focal hepatic lesions: Yes Lesion 1: Previously treated LEFT segmen t 4 hepatic mass (series 7 through 12, images 22 through 24) Size: 21 x 27mm Enhancement: None Washout or pseudocapsule: None. Ancillary features: None Change from prior: Stable LI-RADS: LR-TR nonviable Lesion 2: Segment 7/8 (series 7 through 12, image 50) Size: 22mm, Enhancement: Hypervascular on late arter ial phase images. Washout or pseudocapsule: None. Ancillary features: None Change from prior: Increased LI-RADS: LR-4 (increased from LR-3) Cluster of multiple small late arterial phase enhancing lesions in the LEFT hepatic lobe, not seen on the previous s tudy, however, this may be due to change in technique and improved resolution. Th gonzalez are all LR-3. Partially enhancing approximate 1.4 cm l esion posterior RIGHT hepatic lobe (series 7 through 10, image 50) which ex hibits enhancement on the late arterial phase and portal venous phase images. In determinate on the three-minute postcontrast images if there is washout. LR-3 Portal Vein: Widely Patent. Varices: Perigastric and perisplenic Ascites: None. Spleen: Normal size, no lesions. Bile ducts: Nondilated. Gallbladder: Dependent cholelithiasis Pancreas: Normal. Adrenals: Normal. Kidneys: Stable, 6.4 cm RIGHT renal cyst Aorta: No aneurysm. Lymph nodes: No enlarged lymph nodes. Bowel: Nondilated, no inflammatory ellsworth es. Marrow Signal: Normal. Procedure Note Josh Holt MD - 06/17/2021Form atting of this note might be different from the original. 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 HCC. s/p Miky nd Embo 6 month follow up surveillance. TECHNIQUE: MRI of the abdomen was perfor med with images obtained prior to and following the intravenous administration of 20ml of Dotarem using the dynamic liver protocol. COMPARISONS: 10/15/2020 and 02/24/2020 FINDINGS: Prior hepatic interventions: LEFT hepati c lobe embolization from segment 4 LEFT hepatic artery branch, 07/31/2019 Liver Morphology: Lobulated contour with hypertrophy of the caudate lobe, grossly stable. Heterogeneous signal pat tern on the T2-weighted images, compatible with cirrhotic change. Focal hepatic lesions: Yes Lesion 1: Previously treated LEFT segmen t 4 hepatic mass (series 7 through 12, images 22 through 24) Size: 21 x 27mm Enhancement: None Washout or pseudocapsule: None. Ancillary features: None Change from prior: Stable LI-RADS: LR-TR nonviable Lesion 2: Segment 7/8 (series 7 through 12, image 50) Size: 22mm, Enhancement: Hypervascular on late arter ial phase images. Washout or pseudocapsule: None. Ancillary features: None Change from prior: Increased LI-RADS: LR-4 (increased from LR-3) Cluster of multiple small late arterial phase enhancing lesions in the LEFT hepatic lobe, not seen on the previous s tudy, however, this may be due to change in technique and improved resolution. Th gonzalez are all LR-3. Partially enhancing approximate 1.4 cm l esion posterior RIGHT hepatic lobe (series 7 through 10, image 50) which ex hibits enhancement on the late arterial phase and portal venous phase images. In determinate on the three-minute postcontrast images if there is washout. LR-3 Portal Vein: Widely Patent. Varices: Perigastric and perisplenic Ascites: None. Spleen: Normal size, no lesions. Bile ducts: Nondilated. Gallbladder: Dependent cholelithiasis Pancreas: Normal. Adrenals: Normal. Kidneys: Stable, 6.4 cm RIGHT renal cyst Aorta: No aneurysm. Lymph nodes: No enlarged lymph nodes. Bowel: Nondilated, no inflammatory ellsworth es. Marrow Signal: Normal. IMPRESSION 1. Lesion 1: Site of prior segment 4 emb olization, LR-TR nonviable 2. Lesion 2: Segment 7/8, increased in s ize, upgraded to LR-4 3. Multiple new LR-3 lesions as describe d above LI-RADS Categories: LR-TIV = Tumor in vein LR-5 = Definitely hepatocellular carcino ma (concordant with OPTN 5) LR-4 = Probably hepatocellular carcinoma LR-3 = Intermediate probability for hepa tocellular carcinoma LR-2 = Probably benign LR-1 = Definitely benign LR-TR Viable = Treated, probably or defi nitely viable LR-TR Equivocal = Treated, equivocal via ble LR-TR Nonviable = Treated, probably or d efinitely not viable LR-TR Nonevaluable = Treated, Response n ot evaluable (due to image omission or degradation) LR-M = Probably or definitely malignant but not HCC specific LR-NC = Not categorizable (due to image omission or degradation) NOTE: LI-RADS categories should be inter preted in the context of other available data, such as biomarkers and the patient 's prior probability of developing or having hepatocellular carcinoma. The LI- RADS / OPTN classification of liver lesions has been adopted to standardize CT and MRI scan reporting in patients at risk for hepatocellular carcinoma. The i maging criteria for definite hepatocellular carcinoma are concordant for the LI-RADS and OPTN systems. LI-RADS criteria and documentation are a vailable online at https://www.acr.org/Clinical-Resources/R bxgrakmf-hhk-Pxbo-Systems/LI-RADS. This report utilizes LI-RADS version 2018. Thank you for letting us participate in the care of this patient. If you are a health care provider and have any questi ons regarding this report, please contact the number below. For patients w ho have questions please contact the health child caregiver private home that requested your imaging first. Electronically signed by: Josh horvath MD, [facility] ([phone]), at 06/17/2021 3:31 PM Jia Bledsoe MD IMG MRI ORDERABLES documented in this encounter Visit Diagnoses Diagnosis HCC (hepatocellular carcinoma) Malignant neoplasm of liver, primary Alcoholic cirrhosis, unspecified whether ascites present documented in this encounter Administered Medications Inactive Administered Medications - up to 3 most recent administrations Medication Order MAR Action Action Date Dose Rate Site gadoterate meglumine (Dotarem) Given 06/17/2021 2:31 PM EDT 20 m Ls (0.5 mMol/mL) injection solution 0-100 mL 0-100 mL, Intravenous, ONCE PRN, 1 dose, Starting on Sun06/17/21 at 1427, Until Sun06/17/21 at 1431, Per Protocol, Radiology Contrast, Routine documented in this encounter Care Teams Freezer Unloader Relationship Specialty Start Date End Date Camron Suarez MD PCP - General Family Medicine 05/19/19 [address] [facility] [address] [place] [address] documented as of this encounter
--- OUTSIDE RECORDS SUMMARY | 2022-07-21 01:17 | XMS_ITS | Encounter Summary ---
:1955 Author Organization [facility] Address [facility] [place] [address] Care Team Providers Name Role Phone Camron Suarez MD Primary Care Provider Encounter Details Date Type Department Care Team Description 10/15/2020 Laboratory Appointment Lab 3L Christy Hernandez Cirrhosis of liver without ascites, unspecified hepatic cirrhosis type; [facility] Iron deficiency anemia, unsp ecified iron deficiency anemia type; [facility] Thyroid d isorder; Drive Chronic hepatitis C without hepatic coma; [place] HCC (hepatocell ular carcinoma) [id number] Social History Tobacco Use Types Packs/Day Years [...] Associated Recent Patient-Stated? Author Type Problems Progress Home Medication Patient On track No Elier , Compliance and Facing (03/15/2020 Milli Carpenter, Understanding Action Plan 12:42 PM [facility] EDT) Note: Formatting of this note might be d ifferent from the original. SVR12 through treatment with Epclusa x 2 4 weeks documented as of this encounter Procedures Procedure Name Priority Date/Time Associated Comments Diagnosis HC THYROID STIMULATING Routine 10/15/2020 2:48 Cirrhosis of li martina Results for this HORMONE, SERUM PM EST without ascites, procedure are in unspecified hepatic the resu lts cirrhosis type section. Iron deficiency anemia, unspecified iron deficiency anemia type Thyroid disorder HEMOGRAM Routine 10/15/2020 2:48 HCC (hepatocellular Resul ts for this PM EST carcinoma) procedure are i n the results section. DIFFERENTIAL, AUTOMATED Routine 10/15/2020 2:48 HCC (hepatocel lular Results for this PM EST carcinoma) procedure are i n the results section. HC IRON BINDING Routine 10/15/2020 2:48 Cirrhosis of liver Res ults for this CAPACITY PM EST without ascites, procedure a re in unspecified hepatic the resu lts cirrhosis type section. Iron deficiency anemia, unspecified iron deficiency anemia type HC ALPHA FETOPROTEIN Routine 10/15/2020 2:48 HCC (hepatocellul ar Results for this TUMOR MARKER PM EST carcinoma) procedure are i n the results section. HC HCV QUANTIFICATION Routine 10/15/2020 2:48 Chronic hepatiti s C Results for this PM EST without hepatic procedure ar e in coma the results section. HC PROTHROMBIN TIME Routine 10/15/2020 2:48 HCC (hepatocellula r Results for this PM EST carcinoma) procedure are i n the results section. HC CBC,PLT & AUTO DIFF Routine 10/15/2020 2:48 HCC (hepatocell ular PM EST carcinoma) HC FERRITIN, SERUM Routine 10/15/2020 2:48 Cirrhosis of liver Results for this PM EST without ascites, procedure a re in unspecified hepatic the resu lts cirrhosis type section. Iron deficiency anemia, unspecified iron deficiency anemia type COMPREHENSIVE METABOLIC Routine 10/15/2020 2:48 HCC (hepatocel lular Results for this PANEL (NON-FASTING) PM EST carcinoma) procedur e are in the results section. documented in this encounter Results Differential, Automated (10/15/2020 2:48 PM EST) P athologist Signature Neutrophils % 52.7 % [facility] Neutr Abs (ANC) 2.17 1.70 - [facility] 6.10 [facility] x10(3)/[facility] LABORATORY Lymphocytes % 31.8 % [facility] Lymphocytes Abs 1.3 0.9 - 3.2 [facility] x10(3)/[facility] LABORATORY Monocytes % 11.4 % [facility] Monocyte Abs 0.5 0.3 - 0.9 [facility] x10(3)/[facility] LABORATORY Eosinophils % 2.2 % [facility] Eosinophils Abs 0.1 0.0 - 0.4 [facility] x10(3)/[facility] LABORATORY Basophils % 1.9 % [facility] Basophils Abs 0.1 0.0 - 0.1 [facility] x10(3)/[facility] LABORATORY Immature Gran % 0.00 % [facility] Comment: Immature granulocytes(IG's)percentage an d absolute count will include metamyelocytes, myelocytes, and promyelo cytes. Blood smears from CBCs yielding IG's will be scanned manually for concor dance. If this scan disagrees with the automated IG or if promyelocytes are not ed, a manual differential will be performed. Haily Gran Abs 0.00 0.00 - 0.04 x10(3)/[facility] MAR Y [facility] LABORATORY Specimen Anatomical Collection Method Collection Time Receive d Time (Source) Location / / Volume Laterality Blood specimen 10/15/2020 2:48 PM 021 2:59 (specimen) EST PM EST Resulting Agency Comment Spec In Lab Mehdi KESSLER HEMATOLOGY ORDERABLES Performing Organization Address City/State/[place] [address] (ABNORMAL) Hemogram (10/15/2020 2:48 PM EST) Analysis Performed At Patho logist Time Signature WBC 4.1 4.0 - 9.5 [facility] x10(3)/[facility] LABORATORY RBC 5.30 4.58 - [facility] 5.54 [facility] x10(6)/[facility] LABORATORY Hemoglobin 13.7 13.[address] [facility] 16.[facility] gm/dL [facility] Hematocrit 43.7 40.[address] [facility] 48.5 % [facility] MCV 82.5 (L) 82.9 - [facility] 93.1 [facility] [place] [facility] LABORATORY MCH 25.8 (L) 27.5 - [facility] 32.1 pg [facility] MCHC 31.4 (L) 32.0 - [facility] 35.[facility] gm/dL [facility] Platelets 120 (L) 145 - 357 [facility] x10(3)/[facility] LABORATORY RDWSD 51.5 (H) 36.0 - [facility] 45.0 [facility] [place] [facility] ER LABORATORY RDWCV 17.2 (H) 11.4 - [facility] 13.8 % [facility] MPV 9.7 7.6 - 12.9 [facility] LABORATORY nRBC % Auto 0.0 % [facility] nRBC Abs Auto 0.000 0.000 - [facility] 0.000 [facility] x10(3)/[facility] LABORATORY Specimen Anatomical Collection Method Collection Time Receive d Time (Source) Location / / Volume Laterality Blood specimen 10/15/2020 2:48 PM 021 2:59 (specimen) EST PM EST Resulting Agency Comment Spec In Lab Mehdi KESSLER HEMATOLOGY ORDERABLES Performing Organization Address City/State/[place] [address] (ABNORMAL) Comprehensive metabolic panel (non-fasting) (10/15/2020 2:48 PM EST) P athologist Signature Glucose Lvl 90 65 - 199 [facility] mg/dL [facility] Comment: Diabetes: >=200 mg/dL plus symp toms BUN 9 (L) 10 - 20 mg/dL [facility] Creatinine 0.69 (L) 0.80 - 1.50 mg/dL [facility] Sodium 135 135 - 145 mmol/L [facility] Potassium 4.0 3.5 - 5.0 mmol/L [facility] Comment: Please note: ??Patients with WBC >100,00 0 may have falsely elevated Potassium levels. ??For accurate Potassium quantif ication in these patients send serum separator tube (gold top) for subsequent determinations. ??Contact the Clinical Chemistry Laboratory if there are any qu estions. Chloride 102 98 - 107 mmol/L [facility] CO2 22 22 - 31 mmol/L [facility] Anion Gap 11 5 - 15 mmol/L [facility] Calcium 9.0 8.5 - 10.5 mg/dL [facility] Total Protein 8.1 (H) 6.1 - 8.0 gm/dL [facility] Albumin 4.2 3.2 - 5.2 gm/dL [facility] AST 62 (H) 0 - 39 unit/L [facility] ALT 37 0 - 55 unit/L [facility] Alk Phos 98 40 - 130 unit/L [facility] Total Bilirubin 1.5 (H) 0.2 - 1.3 mg/dL [facility] Estimated GFR 100 >=60 mL/min/1.73 m?? [facility] Comment: This patient? s estimated glomerular filtration rate (eGFR) is between 100 mL/min/1.73 m2 (patients with less muscl e mass per kg body weight) and 115 mL/min/1.73 m2 (patients with more muscl e mass per kg body weight) as determined by the CKD-EPI equation. Asse ssment of eGFR is not appropriate when creatinine concentrations are rapidly ch anging. For clinical decisions where creatinine clearance will affect therapy , a 24-hour urine creatinine clearance may be advised. Assignment of CKD stage 1 ? 5 for patients with an eGFR near the transition point [...] Bledsoe MD CHEMISTRY ORDERABLES Performing Organization Address City/[facility]/[place] [address] AFP tumor marker (10/15/2020 2:48 PM EST) P athologist Signature AFP 5.4 <=8.3 ng/mL [facility] Specimen Anatomical Collection Method Collection Time Receive d Time (Source) Location / / Volume Laterality Blood specimen 10/15/2020 2:48 PM 021 2:59 (specimen) EST PM EST Resulting Agency Comment Spec In Lab Jia Bledsoe MD CHEMISTRY ORDERABLES Performing Organization Address [facility] [place] [address] (ABNORMAL) Prothrombin Time (10/15/2020 2:48 PM EST) P athologist Signature PT 14.4 (H) 9.4 - 12.5 [facility] LABORATORY INR 1.3 [facility] Comment: An INR <2.0 indicates [...] Bledsoe MD HEMATOLOGY ORDERABLES Performing Organization Address City/[facility] [place] [address] Hepatitis C RNA, quantitative, PCR (10/15/2020 2:48 PM EST) Component Value Ref Test Analysis Performed At Patholo gist Range Method Time Signature HCV Viral <12 IU/mL [facility] LABORATORY HCV Viral Result: <12 IU/mL Target Not Detected CHRISTY HERNANDEZ Indication for Study: Hepatitis C Infection [facility] Analysis: The [employer] RealTime HCV assay is an in vitro reverse residential finish carpenter LABORATORY polymerase chain reaction (RT-PCR)for the quantitation [...] Bledsoe MD IMMUNOLOGY ORDERABLES Performing Organization Address City/[facility]/[place] [address] Ferritin (10/15/2020 2:48 PM EST) P athologist Signature Ferritin 41 30 - 400 CHRISTY HERNANDEZ ng/mL [facility] Comment: Pediatric reference ranges not verified at [facility], interpret with caution. Reference ranges for females greater mitchell n 50 years of age approach values for men, i.e., 30-400 ng/mL. Specimen Anatomical Collection Method Collection Time Receive d Time (Source) Location / / Volume Laterality Blood specimen 10/15/2020 2:48 PM 021 2:59 (specimen) EST PM EST Resulting Agency Comment Spec In Lab Jia Bledsoe MD CHEMISTRY ORDERABLES Performing Organization Address City/[facility]/ZIP Code Phon e Number [address] (ABNORMAL) Iron and TIBC (10/15/2020 2:48 PM EST) Analysis Performed At Patho logist Time Signature Iron 83 45 - 160 [facility] m[facility]/dL [facility] TIBC 470 (H) 250 - 450 [facility] mcg/dL [facility] LABOR[facility]ORY Iron Saturation 18 (L) 20 - 50 % [facility] Specimen Anatomical Collection Method Collection Time Receive d Time (Source) Location / / Volume Laterality Blood specimen 10/15/2020 2:48 PM 021 2:59 (specimen) EST PM EST Resulting Agency Comment Spec In Lab Jia Bledsoe MD CHEMISTRY ORDERABLES Performing Organization Address City/[facility]/ZIP Code Phon e Number [address] TSH [place] (10/15/2020 2:48 PM EST) P athologist Signature TSH 4.04 0.27 - 4.20 [facility] mcIU/mL [facility] LABORATORY Specimen Anatomical Collection Method Collection Time Receive d Time (Source) Location / / Volume Laterality Blood specimen 10/15/2020 2:48 PM 021 2:59 (specimen) EST PM EST Resulting Agency Comment Spec In Lab Jia Bledsoe MD CHEMISTRY ORDERABLES Performing Organization Address City/[facility]/[place] [address] documented in this encounter Visit Diagnoses Diagnosis Cirrhosis of liver without ascites, unsp ecified hepatic cirrhosis type Iron deficiency anemia, unspecified iron deficiency anemia type Thyroid disorder Unspecified disorder of thyroid Chronic hepatitis C without hepatic coma HCC (hepatocellular carcinoma) Malignant neoplasm of liver, primary documented in this encounter Care Teams Naturalization Examiner Relationship Specialty Start Date End Date Camron Suarez MD PCP - General Family Medicine 05/19/[address] [phone] documented as of this encounter
--- OUTSIDE RECORDS SUMMARY | 2022-07-21 01:17 | XMS_ITS | Encounter Summary ---
:1955 Author Organization [place] [address] Care Team Providers Name Role Phone Camron Suarez MD Primary Care Provider Reason for Referral Diagnostic Test (Routine) - Closed Specialty Diagnoses / Procedures Referred By Contact Refer red To Contact Radiology Diagnoses HCC (hepatocellular carcinoma) Alcoholic cirrhosis, unspecified whether ascites present [facility] [address] [place] [address] Rad Mri Procedures MRI Abdomen wwo Contrast (Generic) [place] [address] [place] [address] Referral ID Status Reason Start Date Expiration Date Visits V isits Requested Authorized [id number] Closed Specialty 10/19/2020 04/18/2022 1 1 Service Requested Encounter Details Date Type Department Care Team Description 10/19/2020 Multidisciplinary Care Gastroenterology at [facility], HCC (hepatocellular carcinoma); Committee [facility] Aida Ferrari RN Alcoholic cirrhosis, unspeci [place]ied [place] [address] Social History Tobacco Use Types Packs/Day [...] drinks containing alcohol do 3 or 4 07 / you have on a typical day when you are drinking? How often do you have six or more Daily or almost daily 03/25 drinks on one occasion? 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 HCC. Tumor Treatment History: ?? 07/31/19 [place] Embo -Imaging: Initial: 07/14/2019 MRI abdomen IMPRESSION 1. ??Large mass in the anterior left hepatic lobe, LR-5 (definitely hepatocellular carcinoma). 2. ??Cirrhosis and stigmata of portal hypertension including gastric/splenic varices. ?? Interval Surveillance: 09/04/19 CT Abdomen IMPRESSION 1. ??Lesion 1: Segment 4, site of prior embolization, LR-TR nonviable 2. ??Lesion 2: Segment 7/8, 14 mm, LR-3 3. ??Hepatic cirrhosis with stigmata of portal hypertension. ?? 02/24/20 MRI Abdomen ??IMPRESSION The previously noted LEFT hepatic lobe mass has decreased in size and is nonenhancing, measuring. No other suspicious or enhancing hepatic lesions are noted. Current: 10/15/20 MRI Abdomen IMPRESSION ?? 1. Lesion 1: Site of prior segment 4 embolization, LR-TR nonviable 2. Lesion 2: Segment 7/8 measures 19 mm, LR-3 3. No new hepatic masses. AFP value: 5.4 Tissue: Patient Characteristics: Current Child's Score: A Current MELD Score: 11 Pertinent Labs: see eDH Discussion / Recommendations of the Board: Lesion # 1 = LR-TR non viable. Slightly decreased in size. Lesion #2 = 19mm enhancing lesion. Stable when compared to February 2020 imaging = LR-3 lesion. No new lesions noted. Recommendation: 6 month follow up. Conference Attendees: Drs.Tsapakos, PercAngelika roberts Toor, Zimmerman, Chandra, Fields, Russo, Brooks, PA Gallant, APRN Jeffers, Robins CLAU Espinosa. *These are recommended next steps based on past studies and information available here. Specific treatment to be undertaken must ultimately be determined on an individual patient and those involved in the treatment plan. Aida Sandra RN Liver Tumor & Organ Export Freight Specialist Division of Gastroenterology and Hepatology [facility] documented in this encounter Miscellaneous Notes Addendum Note - Aida Sandra RN - 10/19/2020 10:47 AM EST Addended by: AIDA SANDRA on: 10/19/2020 02:19 PM Modules accepted: Orders, SmartSet documented in this encounter Plan of Treatment Scheduled Procedures Name Priority Associated Diagnoses Date/Time EGD, UPPER GI ENDOSCOPY Alcoholic cirrhosis, uns pecified whether ascites present Portal hypertension documented as of this encounter Goals Goal Patient Goal Associated Recent Patient-Stated? Author Type Problems Progress DH Home Medication Patient On track No Elier , Compliance and Facing (03/15/2020 Milli Carpenter Understanding Action Plan 12:42 PM [facility] EDT) Note: Formatting of this note might be d ifferent from the original. SVR12 through treatment with Epclusa x 2 4 weeks documented as of this encounter Results (ABNORMAL) Prothrombin Time (06/17/2021 3:20 PM EDT) P athologist Signature PT 14.1 (H) 9.4 - 12.5 [facility] LABORATORY INR 1.2 [facility]ORY Comment: An INR <2.0 indicates [...] Bledsoe MD HEMATOLOGY ORDERABLES Performing Organization Address City/[facility]/[place] [address] AFP tumor marker (06/17/2021 3:20 PM EDT) athologist Signature AFP 6.1 <=8.3 ng/mL [facility] LABOR[facility]ORY Specimen Anatomical Collection Method Collection Time Receive d Time (Source) Location / / Volume Laterality Blood 06/17/2021 3:20 PM 1 3:40 EDT PM EDT Resulting Agency Comment Spec In Lab Jia Bledsoe MD CHEMISTRY ORDERABLES Performing Organization Address City/[facility]/ZIP [facility] [place] [address] (ABNORMAL) Comprehensive metabolic panel (non-fasting) (06/17/2021 3:20 PM EDT) athologist Signature Glucose Lvl 85 65 - 199 [facility] mg/dL [facility]ORY Comment: Diabetes: >=200 mg/dL plus symp toms BUN 10 10 - 20 mg/dL [facility] LABOR[facility]ORY Creatinine 0.78 (L) 0.80 - 1.50 mg/dL [facility] Sodium 136 135 - 145 mmol/L [facility] Potassium 3.9 3.5 - 5.0 mmol/L [facility] Comment: Please note: ??Patients with WBC >100,00 0 may have falsely elevated Potassium levels. ??For accurate Potassium quantif ication in these patients send serum separator tube (gold top) for subsequent determinations. ??Contact the Clinical Chemistry Laboratory if there are any qu estions. Chloride 102 98 - 107 mmol/L [facility] CO2 22 22 - 31 mmol/L [facility] Anion Gap 12 5 - 15 mmol/L [facility]OR[facility] Calcium 9.2 8.5 - 10.5 mg/dL [facility] Total Protein 8.6 (H) 6.1 - 8.0 g/dL [facility] Albumin 4.2 3.2 - 5.2 g/dL [facility] AST 99 (H) 0 - 39 unit/L [facility] ALT 62 (H) 0 - 55 unit/L [facility] Alk Phos 92 40 - 130 unit/L [facility] Total Bilirubin 1.0 0.2 - 1.3 mg/dL [facility] LABOR[facility]ORY Estimated GFR 94 >=60 mL/min/1.73 m?? [facility] Comment: This patient? s estimated [...] Organization Address City/State/[place] [address] MRI Abdomen wwo Contrast (Generic) (06/17/2021 2:44 [...] documentation are a vailable online at https://www.acr.org/Clinical-Resources/R mzbyiwja-jwt-Ztcf-Systems/LI-RADS. This report utilizes LI-RADS version 2018. Thank you for letting us participate in the care of this patient. ??If you are a health care provider and have any questi ons regarding this report, please contact the number below. ??For patients who have questions please contact the health senior care manager that requested your imaging first. ? Electronically signed by: Josh horvath MD, [facility] ([phone]), at 06/17/2021 3:31 PM Narrative 06/17/2021 3:31 [...] enlarged lymph nodes. Bowel: Nondilated, no inflammatory ellswotrh es. Marrow Signal: Normal. IMPRESSION 1. Lesion [...] documentation are a vailable online at https://www.acr.org/Clinical-Resources/R bsqzfnyf-vak-Iewj-Systems/LI-RADS. This report utilizes LI-RADS version 2018. Thank you for letting us participate in the care of this patient. If you are a health care provider and have any questi ons regarding this report, please contact the number below. For patients w ho have questions please contact the health senior care manager that requested your imaging first. Electronically signed by: Josh horvath MD, [facility] ([phone]), at 06/17/2021 3:31 PM Jia Bledsoe MD IMG MRI ORDERABLES documented in this encounter Visit Diagnoses Diagnosis HCC (hepatocellular carcinoma) Malignant neoplasm of liver, primary Alcoholic cirrhosis, unspecified whether ascites present HCC (hepatocellular carcinoma) Malignant neoplasm of liver, primary Alcoholic cirrhosis, unspecified whether ascites present documented in this encounter Care Teams Chicken Dresser Relationship Specialty Start Date End Date Camron Suarez MD PCP - General Family Medicine 05/19/[address] [place] [address] [address] [place] [phone] documented as of this encounter
--- OUTSIDE RECORDS SUMMARY | 2022-07-21 01:17 | XMS_ITS | Encounter Summary ---
:1955 Author Organization [facility] [place] [address] Care Team Providers Name Role Phone Camron Suarez MD Primary Care Provider Encounter Details Date Type Department Care Team Description 10/21/2020 Telephone [place] [facility] Mehdi London PA [facility] [place] [address] [place] [address] [phone] (Wo rk) Social History Tobacco Use Types [...] Telephone Encounter - Mehdi London PA - 10/21/2020 11:10 AM EST Called Mr. Henry, had to leave voicemail, to review labs from last week showing undetected HCV RNA, confirming cure. Also let him know with LTC discussion we are recommending follow-up MRI in 6 months due to stability. Will plan to see him in clinic coordinated with MRI and labs in 6 months. Will send letter with lab results. DG documented in this encounter Plan of Treatment Scheduled Procedures Name Priority Associated Diagnoses Date/Time EGD, UPPER GI ENDOSCOPY Alcoholic cirrhosis, uns pecified whether ascites present Portal hypertension documented as of this encounter Goals Goal Patient Goal Associated Recent Patient-Stated? Author Type Problems Progress DH Home Medication Patient On track No Elier , Compliance and Facing (03/15/2020 Milli Carpenter, Understanding Action Plan 12:42 PM [facility] EDT) Note: Formatting of this note might be d ifferent from the original. SVR12 through treatment with Epclusa x 2 4 weeks documented as of this encounter Visit Diagnoses Not on filedocumented in this encounter Care Teams Inspector Fabric Relationship Specialty Start Date End Date Camron Suarez MD PCP - General Family Medicine 05/19/19 44 [facility] [address] [place] [address] documented as of this encounter
--- OUTSIDE RECORDS SUMMARY | 2022-07-21 01:17 | XMS_ITS | Encounter Summary ---
:1955 Author Organization [facility] [place] [address] Care Team Providers Name Role Phone Camron Suarez MD Primary Care Provider Encounter Details Date Type Department Care Team Description 05/20/2020 Telephone Gastroenterology at [facility] Mehdi London [place] [facility] [place] [phone] [place] [address] [phone] (Wo rk) Social History Tobacco Use Types [...] Telephone Encounter - Mehdi London PA - 05/20/2020 10:30 AM EDT Left voicemail for patient in attempt to review labs from 04/30 after he completed his 24 week course of Epclusa. Let him know that everything looked great did not leave particulars on his voicemail. HCV RNA was undetected and liver function is stable (although, AST elevated likely due to ongoing alcohol use). He is due in May for MRI and labs (CBC, CMP, INR, AFP) and office visit with me, in-person, all of which are not yet scheduled. Will update scheduling team to reach out to him soon to arrange. DG documented in this encounter Plan of [...] Carpenter, Understanding Action Plan 12:42 PM [facility] EDT) Note: Formatting of this note might be d ifferent from the original. SVR12 through treatment with Epclusa x 2 4 weeks documented as of this encounter Visit Diagnoses Not on filedocumented in this encounter Care Teams Associate Relations Specialist Relationship Specialty Start Date End Date Camron Suarez MD PCP - General Family Medicine 05/19/19 [address] [facility] [address] [place] [address] documented as of this encounter
--- OUTSIDE RECORDS SUMMARY | 2022-07-21 01:17 | XMS_ITS | Encounter Summary ---
:1955 Author Organization [facility] [place] [address] Care Team Providers Name Role Phone Camron Suarez MD Primary Care Provider Reason for Referral Diagnostic Test (Routine) - Closed Specialty Diagnoses / Procedures Referred By Contact Refer red To Contact Radiology Diagnoses HCC (hepatocellular carcinoma) Mehdi London PA [facility] Rad Mri Procedures MRI Abdomen wwo Contrast (Generic) [place] [address] [place] [address] Referral ID Status Reason Start Date Expiration Date Visits V isits Requested Authorized [id number] Closed Specialty 03/03/2020 09/02/2021 1 1 Service Requested Reason for Visit Diagnostic Test (Routine) - Closed Specialty Diagnoses / Procedures Referred By Contact Refer red To Contact Radiology Diagnoses HCC (hepatocellular carcinoma) Mehdi London PA [facility] Rad Mri Procedures MRI Abdomen wwo Contrast (Generic) [facility] [place] [address] [place] [address] Referral ID Status Reason Start Date Expiration Date Visits V isits Requested Authorized [id number] Closed Specialty 03/03/2020 09/02/2021 1 1 Service Requested Encounter Details Date Type Department Care Team Description 10/15/2020 Hospital Encounter MRI at [facility] Jia Bledsoe MD HCC (hepatocellular [facility] ) [facility] [address] [place], [place] GASTROENTEROLOGY [address] [place], [place] [phone] [id number] Social History Tobacco Use Types Packs/Day Years [...] Diagnosis Comme nts MRI ABDOMEN WWO Routine 10/15/2020 2:10 PM HCC (hepatocellular Results for this CONTRAST EST carcinoma) procedure are i n the results section. documented in this encounter Results MRI Abdomen wwo Contrast (Generic) (10/15/2020 2:10 PM EST) Anatomical Region Laterality Modality Abdomen Magnetic Resonance Specimen (Source) Anatomical Location Collection Method / Collectio n Time Received Time / Laterality Volume Impressions 10/15/2020 4:35 PM EST 1. ??Lesion 1: Site of prior segment 4 e mbolization, LR-TR nonviable 2. ??Lesion 2: Segment 7/8 measures 19 m m, LR-3 3. ??No new hepatic masses. LI-RADS Categories: LR-TIV = Tumor in vein [...] documentation are a vailable online at https://www.acr.org/Clinical-Resources/R wmnqoeer-vob-Hozw-Systems/LI-RADS. This report utilizes LI-RADS version 2018. I have personally reviewed the image(s) and the resident's interpretation and agree with the findings, Josh leone MD at 10/15/2020 4:35 PM Thank you for letting us participate in the care of this patient. For questions regarding this report, please contact e number below. ? Electronically signed by: Josh horvath MD, [facility] ([phone]), at 10/15/2020 4:35 PM Narrative 10/15/2020 4:35 PM EST EXAMINATION: MRI ABDOMEN WWO CONTRAST (GENERIC) CLINICAL HISTORY: Liver disease, chronic , history of HCC, monitoring HCC hisotry, previously treated bland em mata 07/2019. Currently monitoring also 2 other LR-3 lesions TECHNIQUE: MRI of the abdomen was perfor med with images obtained prior to and following the intravenous administration of 20ml of Dotarem using the dynamic liver protocol. COMPARISONS: MRI dated 02/24/2020. CT live r 09/04/2019 FINDINGS: Prior hepatic interventions: Left hepati c lobe embolization from segment 4 left hepatic artery branch 07/31/2019 . Liver Morphology: Macronodular lobulated contour with hypertrophy of the caudate, ??atrophy of the right lobe and atrophy of the medial segment of the left lobe, compatible with cirrhosis. Th ere are a few nonenhancing T2 hyperintense lesions throughout the live r compatible with cysts, the largest measures 17 mm in segment 7. Focal hepatic lesions: Yes. Lesion 1: Previously treated left segmen t 4 hepatic mass (series 4 image 10, series 9 image 20). Size: 28 x 22mm, previously 33 x 25 mm Enhancement: Nonenhancing Washout or pseudocapsule: None. Ancillary features: None Change from prior: Decreased size. LI-RADS: LR-TR nonviable Lesion 2: Segment 7/8 (series 10 image 3 3) Size: 19mm, previously 19 mm on 02/24/[address] 09/04/2019 Enhancement: Hypervascular on late arter ial phase images. Washout or pseudocapsule: None. Ancillary features: None Change from prior: None. LI-RADS: LR-3 Portal Vein: Widely Patent. Varices: Perigastric and perisplenic. Ascites: Trace perihepatic ascites. Spleen: Normal size, no lesions. Bile ducts: Nondilated. Gallbladder: Dependent cholelithiasis. N ormal caliber wall. Pancreas: Normal. Adrenals: Normal. Kidneys: Stable 6.6 cm right interpolar cyst. Aorta: No aneurysm. Lymph nodes: No enlarged lymph nodes. Bowel: Nondilated, no inflammatory ellsworth es. Marrow Signal: Normal. Procedure Note Josh Holt MD - 10/15/2020Form atting of this note might be different from the original. EXAMINATION: MRI ABDOMEN WWO CONTRAST (G ENERIC) CLINICAL HISTORY: Liver disease, chronic , history of HCC, monitoring HCC hisotry, previously treated bland em mata 07/2019. Currently monitoring also 2 other LR-3 lesions TECHNIQUE: MRI of the abdomen was perfor med with images obtained prior to and following the intravenous administration of 20ml of Dotarem using the dynamic liver protocol. COMPARISONS: MRI dated 02/24/2020. CT live r 09/04/2019 FINDINGS: Prior hepatic interventions: Left hepati c lobe embolization from segment 4 left hepatic artery branch 07/31/2019 . Liver Morphology: Macronodular lobulated contour with hypertrophy of the caudate, atrophy of the right lobe and a trophy of the medial segment of the left lobe, compatible with cirrhosis. Th ere are a few nonenhancing T2 hyperintense lesions throughout the live r compatible with cysts, the largest measures 17 mm in segment 7. Focal hepatic lesions: Yes. Lesion 1: Previously treated left segmen t 4 hepatic mass (series 4 image 10, series 9 image 20). Size: 28 x 22mm, previously 33 x 25 mm Enhancement: Nonenhancing Washout or pseudocapsule: None. Ancillary features: None Change from prior: Decreased size. LI-RADS: LR-TR nonviable Lesion 2: Segment 7/8 (series 10 image 3 3) Size: 19mm, previously 19 mm on 02/24/[address] 09/04/2019 Enhancement: Hypervascular on late arter ial phase images. Washout or pseudocapsule: None. Ancillary features: None Change from prior: None. LI-RADS: LR-3 Portal Vein: Widely Patent. Varices: Perigastric and perisplenic. Ascites: Trace perihepatic ascites. Spleen: Normal size, no lesions. Bile ducts: Nondilated. Gallbladder: Dependent cholelithiasis. N ormal caliber wall. Pancreas: Normal. Adrenals: Normal. Kidneys: Stable 6.6 cm right interpolar cyst. Aorta: No aneurysm. Lymph nodes: No enlarged lymph nodes. Bowel: Nondilated, no inflammatory ellsworth es. Marrow Signal: Normal. IMPRESSION 1. Lesion 1: Site of prior segment 4 emb olization, LR-TR nonviable 2. Lesion 2: Segment 7/8 measures 19 mm, LR-3 3. No new hepatic masses. LI-RADS Categories: LR-TIV = Tumor in vein [...] documentation are a vailable online at https://www.acr.org/Clinical-Resources/R whkhudww-puy-Lqes-Systems/LI-RADS. This report utilizes LI-RADS version 2018. I have personally reviewed the image(s) and the resident's interpretation and agree with the findings, Josh leone MD at 10/15/2020 4:35 PM Thank you for letting us participate in the care of this patient. For questions regarding this report, please contact th e number below. Electronically signed by: Josh horvath MD, [facility] ([phone]), at 10/15/2020 4:35 PM Jia Bledsoe MD IMG MRI ORDERABLES documented in this encounter Visit Diagnoses Diagnosis HCC (hepatocellular carcinoma) Malignant neoplasm of liver, primary documented in this encounter Administered Medications Inactive Administered Medications - up to 3 most recent administrations Medication Order MAR Action Action Date Dose Rate Site gadoterate meglumine (Dotarem) Given 10/15/2020 1:55 PM EST 20 m Ls (0.5 mMol/mL) injection solution 0.2 mL/kg/dose 0.2 mL/kg/dose, Intravenous, ONCE PRN, 1 dose, Starting on Sun10/15/20 at 1411, Until 10/15/20 at 1355, Per Protocol, Radiology Contrast, Routine documented in this encounter Care Teams Church History Teacher Relationship Specialty Start Date End Date Camron Suarez MD PCP - General Family Medicine 05/19/[address] [place] [phone] documented as of this encounter
--- OUTSIDE RECORDS SUMMARY | 2022-07-21 01:17 | XMS_ITS | Encounter Summary ---
:1955 Author Organization [facility] [place] [address] Care Team Providers Name Role Phone Camron Suarez MD Primary Care Provider Encounter Details Date Type Department Care Team Description 10/15/2020 Office Visit Gastroenterology at [facility] Mehdi London Alcoholic cirrhosis, unspeci fied whether ascites present (Primary Dx); [facility] HCC (hepatocellular carcinoma); [place] [address] [facility] Chronic hepatitis C without hepatic coma; [phone] Center Portal hypertension; [place], [place] Chronic pain sy [facility] [address] Social History Tobacco Use Types Packs/Day Years [...] Sign Reading Time Taken Comments Blood Pressure 131/88 10/15/2020 3:21 PM EST Pulse 67 10/15/2020 3:21 PM EST Temperature - - Respiratory Rate - - Oxygen Saturation - - Inhaled Oxygen Concentration - - Weight 97.5 kg (215 lb) 10/15/2020 3:21 PM EST Height - - Body Mass Index 29.16 04/01/2020 3:56 PM EDT documented in this encounter Progress Notes Mehdi London PA - 10/15/2020 3:30 PM EST Gastroenterology and Hepatology Follow Up Note Patient: Benjamín Henry Sex: male : 1955 Provider: Mehdi London PA-C PCP: Camron Suarez MD LIVER HISTORY 1. Decompensated cirrhosis due to HCV and alcoholism -Presented to [facility] March 2019 with acute upper GI bleed [...] RNA undetected Labs 10/15/20 (SVR24): HCV RNA pending ?? 2. Hepatocellular carcinoma -[facility] -Not noted on RUQ [...] TR-nonviable (28x22 mm), Lesion 2 unchanged, LR-3 -Last AFP 5.4 on 10/15/20 -Last MELD-Na = 11 on 10/15/20 3. 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 Cirrhosis, alcoholic K70.30 ??? Esophageal varices I85.00 ??? Chronic hepatitis C without hepatic coma B18.2 ??? HCC (hepatocellular carcinoma) C22.0 ??? Iron deficiency anemia due to chronic blood loss D50.0 ??? Portal hypertension K76.6 Interval History: Mr. Benjamín Henry is 65 y.o. with a history of decompensated alcoholic and HCV cirrhosis and associated hepatocellular carcinoma. He follows up in clinic today following MRI labs earlier this morning. 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 He is dealing with significant joint pain muscle aches still. He is taking acetaminophen daily but admits he also still has about half a pint of liquor Cher daily. He has not tried the gabapentin again since the one time he used it last year and felt drunk. He would really like to get off acetaminophen and onto something more chronic for pain control such as codeine. He is hoping this would also help decrease his alcohol use. He has an appointment arranged for a couple of weeks with the pain clinicto discuss more details. He has not been taking the iron supplement out of fear that it would cause abdominal cramping and constipation. He otherwise denies any GI or abdominal related complaints. He denies abdominal distention/bloating,blood in his stools, jaundice, confusion/memory issues, or swelling in his legs. MEDICATIONS: Current Outpatient Medications Medication Sig Dispense [...] It makes me bleed. PHYSICAL EXAMINATION: Vitals: 10/15/20 1521 BP: 131/88 Pulse: 67 Weight: 97.5 kg (215 lb) Body mass index is 29.16 kg/m??. Constitutional: ?Well appearing, appropriate, no acute distress Skin: ?No cyanosis, no palmar erythema, no jaundice, no spider angiomata Head:?Normocephalic, sclerae anicteric Abdomen: ?Nontender, nondistended Neurologic: ?Alert and oriented x 3, no asterixis or tremor Extremities:?Trace LE edema, varicose veins,??no clubbing, no muscle wasting, no joint swelling PERTINENT LABS AND IMAGING: Recent Results (from the past 72 hour(s)) TSH Harvey Result Value Ref Range TSH 4.04 0.27 - 4.20 mcIU/mL Iron and TIBC Result Value Ref Range Iron 83 45 - 160 mcg/dL TIBC 470 (H) 250 - 450 mcg/dL Iron Saturation 18 (L) 20 - 50 % Ferritin Result Value Ref Range Ferritin 41 30 - 400 ng/mL Prothrombin Time Result Value Ref Range PT 14.4 (H) 9.4 - 12.5 sec INR 1.3 AFP tumor marker Result Value Ref Range AFP 5.4 <=8.3 ng/mL Comprehensive metabolic panel (non-fasting) Result Value Ref Range Glucose Lvl 90 65 - 199 mg/dL BUN 9 (L) 10 - 20 mg/dL Creatinine 0.69 (L) 0.80 - 1.50 mg/dL Sodium 135 135 - 145 mmol/L Potassium 4.0 3.5 - 5.0 mmol/L Chloride 102 98 - 107 mmol/L CO2 22 22 - 31 mmol/L Anion Gap 11 5 - 15 mmol/L Calcium 9.0 8.5 - 10.5 mg/dL Total Protein 8.1 (H) 6.1 - 8.0 gm/dL Albumin 4.2 3.2 - 5.2 gm/dL AST 62 (H) 0 - 39 unit/L ALT 37 0 - 55 unit/L Alk Phos 98 40 - 130 unit/L Total Bilirubin 1.5 (H) 0.2 - 1.3 mg/dL Estimated GFR 100 >=60 mL/min/1.73 m?? Hemogram Result Value Ref Range WBC 4.1 4.0 - 9.5 x10(3)/mcL RBC 5.30 4.58 - 5.54 x10(6)/mcL Hemoglobin 13.7 13.7 - 16.5 gm/dL Hematocrit 43.7 40.5 - 48.5 % MCV 82.5 (L) 82.9 - 93.1 fL MCH 25.8 (L) 27.5 - 32.1 pg MCHC 31.4 (L) 32.0 - 35.7 gm/dL Platelets 120 (L) 145 - 357 x10(3)/mcL RDWSD 51.5 (H) 36.0 - 45.0 fL RDWCV 17.2 (H) 11.4 - 13.8 % MPV 9.7 7.6 - 12.9 fL nRBC % Auto 0.0 % nRBC Abs Auto 0.000 0.000 - 0.000 x10(3)/mcL Differential, Automated Result Value Ref Range Neutrophils % 52.7 % Neutr Abs (ANC) 2.17 1.70 - 6.10 x10(3)/mcL Lymphocytes % 31.8 % Lymphocytes Abs 1.3 0.9 - 3.2 x10(3)/mcL Monocytes % 11.4 % Monocyte Abs 0.5 0.3 - 0.9 x10(3)/mcL Eosinophils % 2.2 % Eosinophils Abs 0.1 0.0 - 0.4 x10(3)/mcL Basophils % 1.9 % Basophils Abs 0.1 0.0 - 0.1 x10(3)/mcL Immature Gran % 0.00 % Haily Gran Abs 0.00 0.00 - 0.04 x10(3)/mcL MELD-Na score: 11 at 10/15/2020 2:48 PM MELD score: 11 at 10/15/2020 2:48 PM Calculated from: Serum Creatinine: 0.69 mg/dL (Rounded to 1 mg/dL) at 10/15/2020 2:48 PM Serum Sodium: 135 mmol/L at 10/15/2020 2:48 PM Total Bilirubin: 1.5 mg/dL at 10/15/2020 2:48 PM INR(ratio): 1.3 at 10/15/2020 2:48 PM Age: 65 years 7 months Imaging: MRI abdomen wwo contrast today: FINDINGS: ?? Prior hepatic interventions: Left hepatic lobe embolization from segment 4 left hepatic artery branch 07/31/2019 . Liver Morphology: Macronodular lobulated contour with hypertrophy of the caudate, atrophy of the right lobe and atrophy of the medial segment of the left lobe, compatible with cirrhosis. There are a few nonenhancing T2 hyperintense lesions throughout the liver compatible with cysts, the largest measures 17 mm in segment 7. ?? Focal hepatic lesions: Yes. ?? Lesion 1: Previously treated left segment 4 hepatic mass (series 4 image 10, series 9 image 20). Size: 28 x 22mm, previously 33 x 25 mm Enhancement: Nonenhancing Washout or pseudocapsule: None. Ancillary features: None Change from prior: Decreased size. LI-RADS: LR-TR nonviable ?? Lesion 2: Segment 7/8 (series 10 image 33) Size: 19mm, previously 19 mm on 02/24/[address] 09/04/2019 Enhancement: Hypervascular on late arterial phase images. Washout or pseudocapsule: None. Ancillary features: None Change from prior: None. LI-RADS: LR-3 ?? Portal Vein: Widely Patent. Varices: Perigastric and perisplenic. Ascites: Trace perihepatic ascites. Spleen: Normal size, no lesions. ?? Bile ducts: Nondilated. Gallbladder: Dependent cholelithiasis. Normal caliber wall. Pancreas: Normal. Adrenals: Normal. Kidneys: Stable 6.6 cm right interpolar cyst. ?? Aorta: No aneurysm. Lymph nodes: No enlarged lymph nodes. Bowel: Nondilated, no inflammatory changes. Marrow Signal: Normal. ?? IMPRESSION ?? 1. Lesion 1: Site of prior segment 4 embolization, LR-TR nonviable 2. Lesion 2: Segment 7/8 measures 19 mm, LR-3 3. No new hepatic masses. ASSESSMENT & PLAN: Benjamín Henry is a 65 y.o. male with hepatocellular carcinoma, s/p IR bland embolization of a 55 mm LR-5 lesion in the left hepatic lobe in July 2019, and decompensated hepatic cirrhosis secondary to chronic alcohol abuse and hepatitis C infection, genotype 3. He has a history of upper GI bleedingwith esophageal varices that have been banded though he has refused nonselective beta-barbara for secondary bleeding prophylaxis. He completed a 24-week course of sofosbuvir-velpatasvir last year with undetected HCV viral load at the end of treatment. He overall continues to do well, with stable MELD of 11 today. He did not have today's MRI report atthe time of our office visit, however it appears there is still no growth around previously treated left lobe lesion, and stable LR-3 lesion in segment 7/8. AFP is normal. We plan to discuss his case in next week's tumor conference. Given the stability more than 1 year after his initial treatment, we may extend his imaging surveillance to every 6-month MRIs. Small esophageal varices noted on EGD in March, so he will require follow-up EGD again this summer. Interestingly, hemoglobin has now been normal since the summer despite the fact he has not been taking his iron supplement. MCV is still decreased suggesting some degree of iron deficiency however. This is likely overestimated as well given the fact he is still drinking. For now, it is likely safe forhim to stay off iron supplement. We again discussed that he should follow-up with plan for pain clinic evaluation in a couple of weeks for his chronic joint pains and muscle aches. He absolutely must stop acetaminophen if he continuesto drink alcohol. I do think he would benefit from some other long-term pain control. I am curious whether he might benefit from naltrexone for this and to help with decreasing alcohol cravings. Plan: -Discuss case in liver tumor conference next week. -Await pending results of HCV RNA. If undetected, this will confirm a cure being greater than 24 weeks posttreatment. -Okay to stay off of iron supplement for now, though low threshold to restart if hemoglobin again decreases in the future. -Follow-up with plan for pain clinic evaluation on 10/29. -EGD with MAC in the summer for varices follow-up. -Continue efforts to cut down alcohol use is much as possible, and strongly advised he discontinue acetaminophen. -Hepatology clinic follow-up TBD based on tumor board discussion, likely in 6 months with MRI and labs. Time spent reviewing records prior to this encounter: 5 minutes Time spent during encounter with patient including counselin minutes Approximate total time devoted to this single encounter on day of service: 30 minutes Mehdi London PA-C Section of Gastroenterology [place] [address] Cc: Camron Suarez MD @PCPADD@ documented in this encounter Plan of Treatment Scheduled Orders Name Type Priority Associated Diagnoses Order S chedule ENDOSCOPY CASE Procedures Routine Alcoholic cirrhosis, Order ed: 10/17/2020 REQUEST: EGD, UPPER unspecified whether GI ENDOSCOPY ascites present Portal hypertension Scheduled Procedures Name Priority Associated Diagnoses Date/Time EGD, UPPER GI ENDOSCOPY Alcoholic cirrhosis, uns pecified whether ascites present Portal hypertension documented as of this encounter Goals Goal Patient Goal Associated Recent Patient-Stated? Author Type Problems Progress DH Home Medication Patient On track No Elier , Compliance and Facing (03/15/2020 Milli Carpenter, Understanding Action Plan 12:42 PM [facility] EDT) Note: Formatting of this note might be d ifferent from the original. SVR12 through treatment with Epclusa x 2 4 weeks documented as of this encounter Visit Diagnoses Diagnosis Alcoholic cirrhosis, unspecified whether ascites present - Primary HCC (hepatocellular carcinoma) Malignant neoplasm of liver, primary Chronic hepatitis C without hepatic coma Portal hypertension Chronic pain syndrome documented in this encounter Care Teams Purchasing Analyst Relationship Specialty Start Date End Date Camorn Suarez MD PCP - General Family Medicine 05/19/[address] [place] [phone] documented as of this encounter
--- OUTSIDE RECORDS SUMMARY | 2022-07-21 01:17 | XMS_ITS | Encounter Summary ---
:1955 Author Organization [facility] [place] [address] Care Team Providers Name Role Phone Camron Suarez MD Primary Care Provider Reason for Visit Reason Onset Date Comments Hepatic Disease 09/15/2020 Encounter Details Date Type Department Care Team Description 09/15/2020 Telephone Gastroenterology at [facility] Gila Arri[place] [address] Social History Tobacco Use Types Packs/Day [...] this encounter Miscellaneous Notes Telephone Encounter - Gila Arriaza RN - 09/15/2020 3:55 PM EST Called pcp's office, s/w nurse He. Labs needed per Dr Suarez are: CBC CMP Ferritin Transferrin Cascading thyroid. Will plan to order these at to be done when pt is scheduled for MRI and to see Mehdi Beltre. documented in this encounter Plan of Treatment Scheduled Procedures Name Priority Associated Diagnoses Date/Time EGD, UPPER GI ENDOSCOPY Alcoholic cirrhosis, uns pecified whether ascites present Portal hypertension documented as of this encounter Goals Goal Patient Goal Associated Recent Patient-Stated? Author Type Problems Progress DH Home Medication Patient On track No Elier , Compliance and Facing (03/15/2020 Milli Carpenter Understanding Action Plan 12:42 PM [facility] EDT) Note: Formatting of this note might be d ifferent from the original. SVR12 through treatment with Epclusa x 2 4 weeks documented as of this encounter Visit Diagnoses Not on filedocumented in this encounter Care Teams Powder Worker Relationship Specialty Start Date End Date Camron Suarez MD PCP - General Family Medicine 05/19/19 44 [facility] [address] [place] [phone] documented as of this encounter
--- OUTSIDE RECORDS SUMMARY | 2022-07-21 01:17 | XMS_ITS | Encounter Summary ---
:1955 Author Organization [facility] [place] [address] Care Team Providers Name Role Phone Camron Suarez MD Primary Care Provider Encounter Details Date Type Department Care Team Description 06/27/2021 Telephone Radiology at [facility] Zeus Berger MD [facility] [place] [address] RADIOLOGY DEPT [phone] [place], [place] [address] (Wo rk) Social History Tobacco [...] on file documented as of this encounter H&P Notes Zeus Berger MD - 06/27/2021 2:46 PM EDT Images from the original note were not included. INTERVENTIONAL RADIOLOGY FOCUSED H&P and PRE-PROCEDURE NOTE: PCP: Camron Suarez MD Referring Provider: Mehdi [place] Planned Procedure: Planned procedure: liver tumor embolization Procedure Indication: Hepatocellular carcinoma Case discussed at LTC Presenting Diagnosis/ Complaint: Benjamín Henry is a 66 y.o. male with with alcoholic/Hep C cirrhosisand hepatocellular carcinoma previously treated successfully with embolization now with new HCC in the right lobe. Consensus of the [facility] Liver Tumor Board was treatment with ablation or embolization. Ispoke with the patient today by phone to discuss our treatment options. Liver Mass Data: Tumor Found by: surveillance (MRI on 06/17/21) Tumor Characteristics: Segment 4, 2.7 cm, Li-RADS TR-nonviable Segment 7/8, 2.2 cm, Li-RADS 4 Vascular invasion: no Extrahepatic disease: none BCLC Stage: B (Intermediate, multinodular, ECOG ), CPT A-B) AFP: 6.1 06/17 MELD-NA: 8 ECO (Restricted, ability to do light work) Past Medical/Surgical History: Patient Active Problem List Diagnosis Code ??? History of hepatitis C Z86.19 ??? HCC (hepatocellular carcinoma) C22.0 ??? Iron deficiency anemia due to chronic blood loss D50.0 ??? Portal hypertension K76.6 ??? Chronic pain syndrome G89.4 ??? Alcoholic cirrhosis K70.30 Past Medical History: Diagnosis Date ??? Alcohol abuse ??? Cirrhosis, alcoholic ??? Esophageal varices ??? HTN (hypertension) Past Surgical History: Procedure Laterality Date ??? IR LIVER BLAND EMBOLIZATION 07/31/2019 IR Liver [place] Embolization 07/31/2019 Zeus Berger MD [facility] INTERVENTIONL RAD ??? PRO UPPER GI ENDOSCOPY, DIAGNOSTIC N/A 04/20/2019 EGD, UPPER GI ENDOSCOPY performed by Jamie Avalos MD at [facility] ENDOSCOPY ??? PRO UPPER GI ENDOSCOPY, DIAGNOSTIC N/A 05/22/2019 EGD, UPPER GI ENDOSCOPY performed by Jia Bledsoe MD at [facility] ENDOSCOPY ??? PRO UPPER GI ENDOSCOPY, DIAGNOSTIC N/A 06/24/2019 EGD, UPPER GI ENDOSCOPY performed by Butch Parker MD at [facility] ENDOSCOPY ??? PRO UPPER GI ENDOSCOPY, DIAGNOSTIC N/A 04/01/2020 EGD, UPPER GI ENDOSCOPY performed by Adrian Qiu MD at [facility] ENDOSCOPY ??? PRO UPPER GI ENDOSCOPY, LIGAT VARIX 04/20/2019 EGD, W BAND LIGATION OF ESOPHAGEAL/GASTRIC VARICES performed by Jamie Avalos MD at [facility] ENDOSCOPY Medications: Current Outpatient Medications on File Prior to Visit Medication Sig Dispense Refill ??? acetaminophen (TYLENOL) 500 mg Tablet Take 1 tablet by mouth every 6 hours as needed for Pain orFever (Not to exceed 2gm (4 pills) a day). ??? triamterene-hydrochlorothiazide (DYAZIDE) 37.5-25 mg Capsule Take 2 capsules by mouth every morning. No current facility-administered medications on file prior to visit. Allergies: Aspirin Social History and Habits: Social History Socioeconomic History ??? Marital status: Single Spouse name: Not on file ??? Number of children: Not on file ??? Years of education: Not on file ??? Highest education level: Not on file Occupational History ??? Not on file Tobacco Use ??? Smoking status: Former Smoker Packs/day: 0.50 Years: 13.00 Pack years: 6.50 Types: Cigarettes, Pipe Quit date: 2000 Years since quittin.7 ??? Smokeless tobacco: Never Used Vaping Use ??? Vaping Use: Never used Substance and Sexual Activity ??? Alcohol use: Yes Alcohol/week: 21.0 standard drinks Types: 21 Shots of liquor per week Comment: half a fith of wiskey daily last drink 04-19-; 3-4 non alcohol beers daily ??? Drug use: Not Currently ??? Sexual activity: Not on file Other Topics Concern ??? Not on file Social History Narrative ??? Not on file Social Determinants of Health Financial Resource Strain: ??? Difficulty of Paying Living Expenses: Not on file Food Insecurity: ??? Worried About Running Out of Food in the Last Year: Not on file ??? Ran Out of Food in the Last Year: Not on file Transportation Needs: ??? Lack of Transportation (Medical): Not on file ??? Lack of Transportation (Non-Medical): Not on file Physical Activity: ??? Days of Exercise per Week: Not on file ??? Minutes of Exercise per Session: Not on file Housing Stability: ??? Unable to Pay for Housing in the Last Year: Not on file ??? Number of Places Lived in the Last Year: Not on file ??? Unstable Housing in the Last Year: Not on file Significant Family History: No family history on file. Pertinent ROS: as per HPI Labs: Lab Results Component Value Date WBC 4.2 06/17/2021 HCT 48.4 06/17/2021 PLATELET 104 (L) 06/17/2021 INR 1.2 06/17/2021 BUN 10 06/17/2021 CREATININE 0.78 (L) 06/17/2021 ALKPHOS 92 06/17/2021 AST 99 (H) 06/17/2021 ALBUMIN 4.2 06/17/2021 BILIDIR 0.7 (H) 04/22/2019 BILITOT 1.0 06/17/2021 ALT 62 (H) 06/17/2021 PROT 8.6 (H) 06/17/2021 K 3.9 06/17/2021 Imaging: Physical Exam: Pending (to be performed in angio the day of procedure) ASA: Pending (to be assessed in angio the day of procedure) Mallampati Class: Pending (to be assessed in angio the day of procedure) Assessment: 66 y.o. male with alcoholic/Hep C cirrhosis and multifocal hepatocellular carcinoma. He is not a transplant or surgical resection candidate. Now with LR-4 right liver lesion. The previouslytreated left lobe HCC is nonviable. We focused on the treatment options at this time. We discussed the therapy options of bland embolization vs ablation. We discussed the risks of any percutaneous approach (bleeding and infection), and those of any embolization procedure (errant emboli, post-embolic syndrome of fever, nausea, and pain.)We also discussed the palliative nature of this approach and the high likelihood that additional therapeutic embolization or ablation sessions would likely be required. Questions were answered, and thepatient would like to proceed with bland embolization, as he has had it in the past and feels more conformable with embolization over ablation. I encouraged patient to go to Pain Clinic referral given chronic pain issues and was clear that although we provide some pain medication for acute pain after the procedure, we cannot manage his chronicpain. Patient requesting discharge same day as procedure so will plan for AM case. Patient requesting case to be scheduled in late July or early August. Plan: Planned procedure: liver tumor embolization Labs to be performed day of procedure: Coags; Hemogram; CMP Sedation: Moderate (Conscious sedation) Prophylactic antibiotic : Unasyn Contrast: Omnipaque Additional medications for procedure: Lidocaine Planned access site: Left radial Position: Supine; Cone Beam CT Consent: Pending Medications to discontinue (and days held): None Case Urgency:: G- Other (non E or F elective cases) 06/27/2021 documented in this encounter Plan of Treatment [...] Carpenter Understanding Action Plan 12:42 PM [facility] EDT) Note: Formatting of this note might be d ifferent from the original. SVR12 through treatment with Epclusa x 2 4 weeks documented as of this encounter Visit Diagnoses Diagnosis Hepatocellular carcinoma - Primary Malignant neoplasm of liver, primary documented in this encounter Care Teams Car Loader Relationship Specialty Start Date End Date Camron Suarez MD PCP - General Family Medicine 05/19/[address] [phone] documented as of this encounter
--- OUTSIDE RECORDS SUMMARY | 2022-07-21 01:17 | XMS_ITS | Encounter Summary ---
:1955 Author Organization [facility] [place] [address] Care Team Providers Name Role Phone Camron Suarez MD Primary Care Provider Encounter Details Date Type Department Care Team Description 03/04/2020 Telephone Gastroenterology at [facility] [address], [place] [address] Social History Tobacco Use Types Packs/Day [...] this encounter Miscellaneous Notes Telephone Encounter - Zoila Grovse - 03/04/2020 2:26 PM EDT Benjamín Henry [id number] Diagnosis/Indication: 1. Do you take any Blood Thinners? No 2. Do you have a Pacemaker or Defibrillator device? No 3. Are you a diabetic? No 4. Do you have any Allergies to Eggs, Latex or Medications? Yes: In chart 5. Do you take any Oral Iron Supplements (Including multi-vitamins)? No 6. Do you have a history of three or more abdominal surgeries? No 7. Have you had a problem with sedation or anesthesia? No 8. Do you have a c-pap machine or oxygen tank? Neither 9. Do you take prescription narcotic pain medications, including suboxone or methodone? No 10. Do you have a preference regarding the gender of your provider? No Preference 11. Is there any other information you would like to give us to aid in scheduling? No 12. Say to patient: You must have a responsible republican who will drive you to your procedure, stay on campus for the entire duration of your procedure, and drive you home from your procedure? Height: 6'0 Weight: 215 Age:65 y.o. documented in this encounter Plan of Treatment Scheduled Procedures Name Priority Associated Diagnoses Date/Time EGD, UPPER GI ENDOSCOPY Alcoholic cirrhosis, uns pecified whether ascites present Portal hypertension documented as of this encounter Goals Goal Patient Goal Associated Recent Patient-Stated? Author Type Problems Progress DH Home Medication Patient On track No Elier , Compliance and Facing (03/15/2020 Milli Carpenter Understanding Action Plan 12:42 PM [facility] EDT) Note: Formatting of this note might be d ifferent from the original. SVR12 through treatment with Epclusa x 2 4 weeks documented as of this encounter Visit Diagnoses Not on filedocumented in this encounter Care Teams Radio Officer Relationship Specialty Start Date End Date Camron Suarez MD PCP - General Family Medicine 05/19/19 44 [facility] [address] [place] [address] documented as of this encounter
--- OUTSIDE RECORDS SUMMARY | 2022-07-21 01:17 | XMS_ITS | Encounter Summary ---
:1955 Author Organization [facility] [place] [address] Care Team Providers Name Role Phone Camron Suarez MD Primary Care Provider Encounter Details Date Type Department Care Team Description 04/01/2020 Hospital Encounter Gastroenterology at [facility] Adrian Qiu, [facility] [place] [address] [facility] [phone] GASTROENTEROLOGY DEPT. [place], [place] [address] Social History Tobacco Use Types [...] the day after the procedure, use an [id number] spray to numb yourthroat. Sucking on throat [...] occurs, please contact your Doctor. Please call [phone] before 8pm Mon-Fri with problems, questions or concerns. If you call after 8pm or on weekends, call the Hospital at [phone] and ask to speak to the Rivet Machine Operator turbinated bone grinder and the strip mill operator will contact that person for you. When should you call for help? Call 522 anytime you think you may need emergency [...] any problems. Where can you learn more? [email or web address] View your After Visit Summary and more online at [email or web address] If you would like to provide feedback [...] cost to you. Content Version: 12.2 ?? 3831-1813 [email or web address]. Care instructions adapted under license by [facility]. If you have questions about a medical condition or this instruction, always ask your healthcare professional. [email or web address] disclaims any warranty or liability for your [...] Qiu MD - 04/01/2020 4:38 PM EDT [facility] Operative Note Patient Name: Benjamín Henry : [id number] MR#: [id number] Case Date: 04/01/2020 Surgeon: Surgeon(s) and Role: * Adrian Qiu MD - Primary Preoperative diagnosis: Decompensated hepatic cirrhosis Portal hypertension Postoperative diagnosis: * No post-op diagnosis entered * Procedure(s) (LRB): EGD, UPPER GI ENDOSCOPY (N/A) Anesthesia: MAC Full procedure note is documented under the Procedure section of [facility]. documented in this encounter Plan of Treatment Scheduled Procedures Name Priority Associated Diagnoses Date/Time EGD, UPPER GI ENDOSCOPY Alcoholic cirrhosis, uns pecified whether ascites present Portal hypertension documented as of this encounter Goals Goal Patient Goal Associated Recent Patient-Stated? Author Type Problems Progress [facility] Medication Patient On track No Elier , Daniel and Facing (03/15/2020 Milli Carpenter Understanding Action Plan 12:42 PM [facility] EDT) Note: Formatting of this note might [...] Component Value Ref Test Analysis Performed At [facility] Range Method Time Signature UPPER GI [facility] ENDOSCOPY Endoscopy Procedure Date: 04/01/2020 4:05 PM ? Patient Name: Benjamín Henry ? Date of : 1955 ? Age: 65 ? Order #: [id number] ? Instrument Name: [id number] ? Procedure: ? Upper GI endoscopy Indications: ? Follow-up of esophageal varices Providers: ? Adrian Qiu MD, Crystal Maldonado ? Shanae, RN, Kristie Noel, Adelfo Castillo. ? Jaya, Milk Route Supervisor Referring : ?Camron Suarez MD, Mehdi Silva [...] Procedure) documented in this encounter Care Teams Online Advertising Manager Relationship Specialty Start Date End Date Camron Suarez MD PCP - General Family Medicine 05/19/[address] [place] [phone] documented as of this encounter
--- OUTSIDE RECORDS SUMMARY | 2022-07-21 01:17 | XMS_ITS | Encounter Summary ---
:1955 Author Organization [facility] [place] [place] [address] Care Team Providers Name Role Phone Camron Suarez MD Primary Care Provider Reason for Visit Reason Comments Leg Pain new patient visit / Fellow Foot Pain Pain, Chronic Consultation ([facility]AN) - Closed Specialty Diagnoses / Procedures Referred By Contact Refer red To Contact [facility] Sp[facility] Center Diagnoses Chronic pain syndrome Pain - Chronic leg pain in setting of alcoholic cirrhosis/ ?Mehdi Tucker, [facility] Sp[facility] enter [address]th [address] [address] Phone: Fax: Referral ID Status Reason Start Date Expiration Date Visits V isits Requested Authorized [id number] Closed Pain Consult 06/23/2021 06/23/2022 1 1 Encounter Details Date Type Department Care Team Description 08/04/2021 Office Visit Pain and Spine Center Cornell Yeh MD [facility] [place] [address] Chronic pain of both at [facility] Michelle Cedeno MD [facility] [place] [address] [place] [address] Social History Tobacco Use Types Packs/Day Years [...] Pulse 69 08/04/2021 2:00 PM EST Temperature - - Respiratory Rate - - Oxygen Saturation 98% 08/04/2021 2:00 PM EST Inhaled Oxygen Concentration - - Weight 97.5 kg (215 lb) 08/04/2021 2:00 PM EST Height - - Body Mass Index 29.16 05/09/2021 9:25 AM EDT documented in this encounter Progress Notes Michelle Cedeno MD - 08/04/2021 2:00 PM EST [facility] Initial Consultation Note DOS: 08/03/21 : 1955 Referring Provider: Mehdi [place] [address] [place] [address] CC: Bilateral leg pain HPI: Benjamín Henry is a 66 y.o. year old male with PMH decompensated cirrhosis 2/2 HCV and alcoholism c/bGIB 03/2019, HCC referred to pain clinic by [facility] for management of chronic low pain, with specific question if patient is a candidate for LDN. Patient states he has pain in anterolateral aspects of bilateral legs. Patient feels pain may start in knees. Denies any pain in his back. Described as intermittent burning pain. Once occurs, the pain will last for entire day. Endorses distal foot numbness. Neurologic Symptoms: Numbness: Distal foot numbness Weakness: Denies Urinary incontinence: Denies Saddle anesthesia: Denies Current Medications: Tylenol Past Treatments/Medications: Medications : Topicals - None NSAIDs - None (cirrhosis) Acetaminophen - Helps Antidepressants - None Antieptileptics - Gabapentin (did like how he felt) Muscle Relaxants - None Opioids - None Steroids - None Procedures: None Surgeries: None Physical therapy: None Opioid Risk Tool Female Male 1. Family history of Substance Abuse Alcohol [] 1 [] 3 Illegal Drugs [] 2 [] 3 Prescription Drugs [] 4 [] 4 2. Personal History of Substance Abuse Alcohol [] 3 [x] 3 Illegal Drugs [] 4 [] 4 Prescription Drugs [] 5 [] 5 3. Age (cl box if 16-45) [] 1 [] 1 4. History of Preadolescent Sexual Abuse [] 3 [] 0 5. Psychological Disease Attention Deficit Disorder, Obsessive Compulsive D/o, Bipolar, Schizophrenia [] 2 [] 2 Depression [] 1 [] 1 TOTAL: 3 Comments about ORT in relation to this patient: Opioid Risk Category: low risk 0-3 ROS: Negative except HPI PMH/PSH: Patient Active Problem List Diagnosis Code ??? [...] IR LIVER BLAND EMBOLIZATION 07/31/2019 IR Liver [place] Embolization 07/31/2019 Zeus Berger MD [facility] INTERVENTIONL RAD ??? PRO UPPER GI ENDOSCOPY, DIAGNOSTIC N/A 04/20/2019 EGD, UPPER GI ENDOSCOPY performed by Jamie Avalos MD at [facility] ENDOSCOPY ??? PRO UPPER GI ENDOSCOPY, DIAGNOSTIC N/A 05/22/2019 EGD, UPPER GI ENDOSCOPY performed by Jia Bledsoe MD at [facility] ENDOSCOPY ??? PRO UPPER GI ENDOSCOPY, DIAGNOSTIC N/A 06/24/2019 EGD, UPPER GI ENDOSCOPY performed by Butch Parker MD at [facility] ENDOSCOPY ??? PRO UPPER GI ENDOSCOPY, DIAGNOSTIC N/A 04/01/2020 EGD, UPPER GI ENDOSCOPY performed by Adrian Qiu MD at [facility] ENDOSCOPY ??? PRO UPPER GI ENDOSCOPY, LIGAT VARIX 04/20/2019 EGD, W BAND LIGATION OF ESOPHAGEAL/GASTRIC VARICES performed by Jamie Avalos MD at [facility] ENDOSCOPY FAMILY HISTORY: No family history on file. SOCIAL HISTORY: Tobacco: Ex-smoker Alcohol: 1/4 pint/d Marijuana: None Recreational drug use: None MEDICATIONS: Current Outpatient Medications: ??? acetaminophen (TYLENOL) 500 mg Tablet, Take 1 tablet by mouth every 6 hours as needed for Pain or Fever (Not to exceed 2gm (4 pills) a day)., Disp: , Rfl: ??? triamterene-hydrochlorothiazide (DYAZIDE) 37.5-25 mg Capsule, Take 2 capsules by mouth every morning., Disp: , Rfl: ALLERGIES: Allergies Allergen Reactions ??? Aspirin Other (See Comments) It makes me bleed. PHYSICAL EXAM: General: NAD Musculoskeletal: Back flexion 60 degrees, extension 30 degrees. No TTP of PSIS, piriformis, iliac crest, or GTB. Negative Figueroa maneuver. Negative Gaenslen, compression, SARA, thigh thrust, and distraction. Negative SLR. Neurologic: Strength 5/5 in L2-S1 myotomes bilaterally. Sensation intact in all dermatomes but reduced sensation distally in sock pattern. Patella reflex (L3-4) 2+ and Achilles reflex (S1) 1+. Vascular: 2+ dorsalis pedis and posterior tibialis pulses TESTS/IMAGING: Imaging in [facility] personally reviewed. A/P: Assessment: 66 y.o. year old male with PMH decompensated cirrhosis 2/2 HCV and alcoholism c/b GIB 03/2019, HCC referred to pain clinic by [facility] for management of chronic low pain, with specific questionif patient is a candidate for LDN. Based on description of pain, appears to be originating from knees. Additionally patient may have peripheral neuropathy possibly from alcohol abuse based on distal numbness. Patient likely has OA but patient does not want any procedures at this time so will diagnostic imaging as well. Patient would not be an ideal candidate for LDN. In setting of alcohol use, patient would be at riskfor requiring increased doses of alcohol for sleeping further complicating cirrhosis. Additionally, the primary indications for LDN at this time are MS, fibromyalgia, and CRPS, which the patient has. There are case series for diabetic neuropathy but would not recommend with just case study data in light of the concerns with concurrent alcohol use. Plan: -TENS unit OTC -RTC PRN -If patient would like, we can do knee x-rays Diagnosis reviewed, treatment option addressed, and risk/benefits discussed with patient. Thank you for allowing us the opportunity to participate in Benjamín Henry's care. Michelle Cedeno MD, PGY5 [facility] Pain Medicine Fellow Seen and discussed with supervising attending Dr. Yeh who is in agreement with the above assessment and plan. I have seen and examined the patient and reviewed the fellow's above history and agree with the details as written. The assessment and plan were formulated in discussion with me, and I agree with them as documented. Beka Yeh MD, MS Director Of Casework Department of Anesthesiology [facility] [address] [phone] / [facility] CC: Mehdi [place], [place] [facility] [place] [address] documented in this encounter Plan of Treatment [...] as of this encounter Visit Diagnoses Diagnosis Chronic pain of both knees documented in this encounter Care Teams Blending Technician Relationship Specialty Start Date End Date Camron Suarez MD PCP - General Family Medicine 05/19/[address] [place] [phone] documented as of this encounter
--- OUTSIDE RECORDS SUMMARY | 2022-07-21 01:17 | XMS_ITS | Encounter Summary ---
:1955 Author Organization [facility] [place] [address] Care Team Providers Name Role Phone Camron Suarez MD Primary Care Provider Reason for Visit Reason Comments Medication Management Encounter Details Date Type Department Care Team Description 04/14/2020 Specialty Pharmacy Pharm[place] [facility] [place] Milli Thapa Medication [facility] [place] [address] Social History Tobacco Use Types Packs/Day Years [...] encounter Progress Notes Milli Thapa RPH - 04/14/2020 12:12 PM EDT Clinical Management Plan: Transfer of Care/Discharge Specialty Services Specialty Pharmacy Consultation; Milli Thapa RPH Comprehensive Medication Management (CMM) [place] [address] [facility] [address] Telephone Information: Work Phone Not on file. Is the patient transferring services to a different Specialty Pharmacy or discontinuing the medication? Discontinuing medication- upcoming completion of treatment Medication: Epclusa x 24 weeks Reason for discontinuation or transfer: completion of treatment Approximate date of discontinuation or transfer: patient will complete treatment on 04/20/20 - he did not miss any doses throughout treatment Discontinued from Specialty Pharmacy Services on 04/14/20 Patient's response to therapy: Week 4 HCV viral load: undetected on 12/23/19 End of treatment labs: TBD - standing orders are in place at [facility] [place] Summary of services provided by - Specialty: Initial pharmacist consult, day 3 follow-up, refill reminder and follow-up 10 days prior to refill, end of treatment follow-up Summary of on-going needs: Follow lab schedule provided by clinic for upcoming labs 3 and 6 months post-treatment. Referral for additional services (if applicable): no Is patient aware of referral? no Instructions provided to patient about discharge/transfer: yes - patient aware this concludes our follow-up schedule and to reach out with any additional questions/concerns Provider aware of discontinuation or transfer: yes Patient understands no changes to current drug regimen were made at the appointment and that [facility] is providing recommendations (summary located at top of note) for provider review and follow up. Milli Thapa RPH 04/14/20 12:12 PM documented in this encounter Plan of Treatment Scheduled Procedures Name Priority Associated Diagnoses Date/Time EGD, UPPER GI ENDOSCOPY Alcoholic cirrhosis, uns pecified whether ascites present Portal hypertension documented as of this encounter Goals Goal Patient Goal Associated Recent Patient-Stated? Author Type Problems Progress Home Medication Patient On track No [place]lier Compliance and Facing (03/15/2020 Milli Carpenter Understanding Action Plan 12:42 PM [facility] EDT) Note: Formatting of this note might be d ifferent from the original. SVR12 through treatment with Epclusa x 2 4 weeks documented as of this encounter Visit Diagnoses Not on filedocumented in this encounter Care Teams Vice President Of Business Development Relationship Specialty Start Date End Date Camron Suarez MD PCP - General Family Medicine 05/19/[address] [place] [address] [address] [place] [address] documented as of this encounter
--- OUTSIDE RECORDS SUMMARY | 2022-07-21 01:18 | XMS_ITS | Encounter Summary ---
:1955 Author Organization [facility] [place] [address] Care Team Providers Name Role Phone Camron Suarez MD Primary Care Provider Reason for Referral Diagnostic Test (Routine) - Specialty Diagnoses / Procedures Referred By Contact Refer red To Contact Radiology Diagnoses Hepatocellular carcinoma Mehdi London PA [facility] Rad Ct Scan Procedures CT Chest wo Contrast (Generic) [place] [address] [place] [address] Referral ID Status Reason Start Date Expiration Visits Visits Date Requested Authorized [id number] Specialty 07/24/2019 07/23/2020 1 1 Service Requested Reason for Visit Diagnostic Test (Routine) - Closed Specialty Diagnoses / Procedures Referred By Contact Refer red To Contact Radiology Diagnoses Hepatocellular carcinoma Mehdi London PA [facility] Rad Ct Scan Procedures CT Abdomen wwo Contrast CT Abdomen wo Contrast CT Abdomen wwo Contrast [facility] [place] [address] [place] [address] [place] [address] Referral ID Status Reason Start Date Expiration Date Visits V isits Requested Authorized [id number] Closed Specialty 07/24/2019 07/23/2020 1 1 Service Requested Encounter Details Date Type Department Care Team Description 09/04/[address] Scan at [facility] – [place] Jia Bledsoe MD Hepatocellular [facility] carcinoma [facility] [address] [place] [facility] [id number] [phone] [place] [address] Social History Tobacco Use Types Packs/Day Years [...] (DYAZIDE) mouth every 37.5-25 mg Capsule morning. propranolol (INDERAL) Take 1 tablet by 60 tablet 3 09/04/20 19 02/26/2020 20 mg mouth 2 times TabletIndications: daily. Portal hypertension bisacodyl (DULCOLAX) Place 1 suppository 60 suppository 3 10/17/2020 10 mg Suppository rectally daily as needed. polyethylene glycol Take 17 g by mouth 14 each 0 08/03/20 19 01/12/2020 (MIRALAX) 17 gram daily as needed. Powder in Packet ketoconazole 0 07/11/2019 10/17/2020 (NIZORAL) 2 % [...] mg mouth daily. TabletIndications: Decompensated HCV cirrhosis ferrous sulfate 325 0 05/15/201901/11 mg (65 mg iron) Tablet thiamine (THIAMINE) Take 1 tablet by 30 tablet 3 04/22/2019 10/17/2020 mouth daily. pantoprazole Take 1 tablet by 90 tablet 3 04/22/20192019 (PROTONIX) 40 mg mouth daily. Tablet, Delayed Release (E.C.) documented as of this encounter Plan of Treatment Scheduled Procedures Name Priority Associated Diagnoses Date/Time EGD, UPPER GI ENDOSCOPY Alcoholic cirrhosis, uns pecified whether ascites present Portal hypertension documented as of this encounter Procedures Procedure Name Priority Date/Time Associated Diagnosis Comme nts CT ABDOMEN WWO Routine 09/04/2019 11:11 Hepatocellular Results for this CONTRAST AM EST carcinoma procedure are i n the results section. CT CHEST WO Routine 09/04/2019 11:11 Hepatocellular Results f or this CONTRAST (GENERIC) AM EST carcinoma procedure are in the results section. documented in this encounter Results CT Abdomen wwo Contrast (09/04/2019 11:11 AM EST) Anatomical Region Laterality Modality Abdomen Computed Tomography Specimen (Source) Anatomical Location Collection Method / Collectio n Time Received Time / Laterality Volume Impressions 09/04/2019 2:43 PM EST 1. ??Lesion 1: Segment 4, site of prior embolization, LR-TR nonviable 2. ??Lesion 2: Segment 7/8, 14 mm, LR-3 3. ??Hepatic cirrhosis with stigmata of portal hypertension. LI-RADS Categories: LR-TIV = Tumor in vein [...] at risk for hepatocellular carcinoma. The i ing criteria for definite hepatocellular carcinoma are concordant for the LI-RADS and OPTN systems. LI-RADS criteria and documentation are a vailable online at https://www.acr.org/Clinical-Resources/R qhsxdiqs-ryi-Yiya-Systems/LI-RADS. This report utilizes LI-RADS version 2018. I have personally reviewed the image(s) and the resident's interpretation and agree with the findings, Zeus lundy at 09/04/2019 2:43 PM Thank you for letting us participate in the care of this patient. For questions regarding this report, please contact e number below. ? Narrative 09/04/2019 2:43 PM EST EXAMINATION: CT ABDOMEN WWO CONTRAST, CT CHEST WO CONTRAST (GENERIC) CLINICAL HISTORY: 64-year-old male with hepatocellular carcinoma status post bland embolization. Known lung nodules, evaluate for metastatic disease. TECHNIQUE: Helical CT of the chest was p erformed without intravenous contrast. Helical CT of the abdomen was performed before and after the intravenous administration of contrast. Administered 102.0 ml of OMNIPAQUE 350.00 mg/ml. Oral contrast was administered. COMPARISON: Comparison is made to CT of the Chest, Abdomen, and Pelvis dated 04/19/2019. Correlation is made to MRI of the Abdomen dated 07/14/2019 and [place] Hepatic Embolization dated 07/31/2019. FINDINGS: CT of the Chest: Lungs and large airways: There is a stab le 4 mm pulmonary nodule within the left lower lobe (series 4, image 53). There i s an additional stable 5 mm pulmonary nodule within the left posterior costoph renic angle (series 4, image 57). There is no new pulmonary nodule. There is no pulmonary consolidation. The major airways are patent. Pleura: No effusion. Heart/vasculature: Cardiac size is at th e upper limits of normal. There is moderate atherosclerotic calcification p redominantly within the left anterior descending coronary artery. There is ce cification of the aortic valve. Lymph nodes/Mediastinum/Suad: There are a few stable subcentimeter mediastinal lymph nodes, which do not meet size crit eria for pathologic enlargement, and are likely reactive. The largest of these is a precarinal lymph node with a short axis diameter of 8 mm (series 3, image 2 9). There is no pathologically enlarged mediastinal lymphadenopathy. CT of the Abdomen: Prior hepatic interventions: * ??07/31/2019: [place] embolization of lef t hepatic lobe from segment 4 left hepatic artery branch. Liver Morphology: There is a macronodula r and lobulated contour to the hepatic parenchyma. The caudate lobe is enlarged . There there are a few hypoattenuating lesions within both lobes of the liver, not significantly changed as compared to the prior examinations, and consistent w ith hepatic cysts on prior MRI. Focal hepatic lesions: Yes. Lesion 1: Previously treated left segmen t 4 hepatic mass (series 3, image 63; series 8, image 17; series 7, image 17; series 11, image 16). Size: 36 x 38mm, previously 54 x 39 mm Enhancement: There is persistent nodular hyperdense material present on the noncontrast examination, secondary to co ntrast from embolization. There is no arterial enhancement; there is no signif icant change in Hounsfield units on multiphase imaging, consistent with none nhancement. Washout or pseudocapsule: None. Change from prior: Decreased in size wit hout enhancement. LI-RADS: LR-TR Nonviable Lesion 2: Segment 7/8, series 7, image 2 7 Size: 14mm Enhancement: Hypervascular on arterial p hase enhancement; equal enhancement to hepatic parenchyma on portal venous and delayed imaging. Washout or pseudocapsule: None. Change from prior: Unable to assess; analy or CT examination is only portal venous phase. This lesion was present on MRI of the abdomen dated 07/14/2019; at that time, there was no associated T2 hyperin tensity washout or pseudocapsule. LI-RADS: 3 Portal Vein: Widely Patent. Varices: Perigastric and perisplenic Ascites: None. Spleen: Heterogeneous enhancement which persists on delayed imaging. Bile ducts: Nondilated. Gallbladder: There are layering calcifie d gallstones. The gallbladder wall is at the upper limits of normal for thickness . There is no pericholecystic fluid or pericholecystic fat infiltration. Pancreas: Normal. Adrenal: Normal. Kidneys: There is a stable right interpo lar 6.6 cm simple renal cyst. The left kidney is unremarkable. Vasculature: Visualized aspects of the a bdominal aorta are within normal limits. There is no aneurysm. There visualized p ortions of the inferior vena cava are within normal limits. Lymph nodes: There are prominent retrope ritoneal, predominantly pericarinal and periaortic lymph nodes which have increa sed in size and number as compared to the prior examination. For instance, the re is a periaortic lymph node with a short axis diameter of 11 mm, previously 8 mm (series 8, image 44). Additionally, there is a preaortic lymph node which has increased in size with a short axis diameter of 10 mm, previously 6 mm (series 8, image 56). Bowel: There are a few scattered colonic diverticula without secondary signs of acute diverticulitis. The stomach is und er distended, limiting evaluation. There are inflammatory changes surrounding the duodenum without associated wall thickening. There is no hyperemia of the duodenum. Visualized aspects of the small bowel are within normal limits. Peritoneum and mesentery: As noted previ ously, and slightly progressed from the prior examination, is mesenteric fat str anding along the retroperitoneum and mesenteric root predominantly posterior to the duodenum and extending superiorly into the zac hepatis and retroperitone um. This is in the region of increasing prominent lymph nodes, as described abov e. This is likely secondary to portal hypertension. Abdominal wall: Normal. Osseous structures: There are degenerati ve changes of the visualized spine with endplate sclerosis, osteophyte formation . There is vacuum disc phenomenon at several levels within the thoracic spine . There is a stable lucent 8 mm lesion within the T11 vertebral body (series 60 2, image 64). On prior MRI, this demonstrated T2 hyperintensity, T1 hyper intensity, without enhancement, likely related to a small intraosseous hemangio ma. Procedure Note Zeus Berger MD - 09/04/2019Form atting of this note might be different from the original. EXAMINATION: CT ABDOMEN WWO CONTRAST, CT CHEST WO CONTRAST (GENERIC) CLINICAL HISTORY: 64-year-old male with hepatocellular carcinoma status post bland embolization. Known lung nodules, evaluate for metastatic disease. TECHNIQUE: Helical CT of the chest was p erformed without intravenous contrast. Helical CT of the abdomen was performed before and after the intravenous administration of contrast. Administered 102.0 ml of OMNIPAQUE 350.00 mg/ml. Oral contrast was administered. COMPARISON: Comparison is made to CT of the Chest, Abdomen, and Pelvis dated 04/19/2019. Correlation is made to MRI of the Abdomen dated 07/14/2019 and [place] Hepatic Embolization dated 07/31/2019. FINDINGS: CT of the Chest: Lungs and large airways: There is a stab le 4 mm pulmonary nodule within the left lower lobe (series 4, image 53). There i s an additional stable 5 mm pulmonary nodule within the left posterior costoph renic angle (series 4, image 57). There is no new pulmonary nodule. There is no pulmonary consolidation. The major airways are patent. Pleura: No effusion. Heart/vasculature: Cardiac size is at th e upper limits of normal. There is moderate atherosclerotic calcification p redominantly within the left anterior descending coronary artery. There is ce cification of the aortic valve. Lymph nodes/Mediastinum/Suad: There are a few stable subcentimeter mediastinal lymph nodes, which do not meet size crit eria for pathologic enlargement, and are likely reactive. The largest of these is a precarinal lymph node with a short axis diameter of 8 mm (series 3, image 2 9). There is no pathologically enlarged mediastinal lymphadenopathy. CT of the Abdomen: Prior hepatic interventions: * 07/31/2019: [place] embolization of left hepatic lobe from segment 4 left hepatic artery branch. Liver Morphology: There is a macronodula r and lobulated contour to the hepatic parenchyma. The caudate lobe is enlarged . There there are a few hypoattenuating lesions within both lobes of the liver, not significantly changed as compared to the prior examinations, and consistent w ith hepatic cysts on prior MRI. Focal hepatic lesions: Yes. Lesion 1: Previously treated left segmen t 4 hepatic mass (series 3, image 63; series 8, image 17; series 7, image 17; series 11, image 16). Size: 36 x 38mm, previously 54 x 39 mm Enhancement: There is persistent nodular hyperdense material present on the noncontrast examination, secondary to co ntrast from embolization. There is no arterial enhancement; there is no signif icant change in Hounsfield units on multiphase imaging, consistent with none nhancement. Washout or pseudocapsule: None. Change from prior: Decreased in size wit hout enhancement. LI-RADS: LR-TR Nonviable Lesion 2: Segment 7/8, series 7, image 2 7 Size: 14mm Enhancement: Hypervascular on arterial p hase enhancement; equal enhancement to hepatic parenchyma on portal venous and delayed imaging. Washout or pseudocapsule: None. Change from prior: Unable to assess; analy or CT examination is only portal venous phase. This lesion was present on MRI of the abdomen dated 07/14/2019; at that time, there was no associated T2 hyperin tensity washout or pseudocapsule. LI-RADS: 3 Portal Vein: Widely Patent. Varices: Perigastric and perisplenic Ascites: None. Spleen: Heterogeneous enhancement which persists on delayed imaging. Bile ducts: Nondilated. Gallbladder: There are layering calcifie d gallstones. The gallbladder wall is at the upper limits of normal for thickness . There is no pericholecystic fluid or pericholecystic fat infiltration. Pancreas: Normal. Adrenal: Normal. Kidneys: There is a stable right interpo lar 6.6 cm simple renal cyst. The left kidney is unremarkable. Vasculature: Visualized aspects of the a bdominal aorta are within normal limits. There is no aneurysm. There visualized p ortions of the inferior vena cava are within normal limits. Lymph nodes: There are prominent retrope ritoneal, predominantly pericarinal and periaortic lymph nodes which have increa sed in size and number as compared to the prior examination. For instance, the re is a periaortic lymph node with a short axis diameter of 11 mm, previously 8 mm (series 8, image 44). Additionally, there is a preaortic lymph node which has increased in size with a short axis diameter of 10 mm, previously 6 mm (series 8, image 56). Bowel: There are a few scattered colonic diverticula without secondary signs of acute diverticulitis. The stomach is und er distended, limiting evaluation. There are inflammatory changes surrounding the duodenum without associated wall thickening. There is no hyperemia of the duodenum. Visualized aspects of the small bowel are within normal limits. Peritoneum and mesentery: As noted previ ously, and slightly progressed from the prior examination, is mesenteric fat str anding along the retroperitoneum and mesenteric root predominantly posterior to the duodenum and extending superiorly into the zac hepatis and retroperitone um. This is in the region of increasing prominent lymph nodes, as described abov e. This is likely secondary to portal hypertension. Abdominal wall: Normal. Osseous structures: There are degenerati ve changes of the visualized spine with endplate sclerosis, osteophyte formation . There is vacuum disc phenomenon at several levels within the thoracic spine . There is a stable lucent 8 mm lesion within the T11 vertebral body (series 60 2, image 64). On prior MRI, this demonstrated T2 hyperintensity, T1 hyper intensity, without enhancement, likely related to a small intraosseous hemangio ma. IMPRESSION 1. Lesion 1: Segment 4, site of prior em bolization, LR-TR nonviable 2. Lesion 2: Segment 7/8, 14 mm, LR-3 3. Hepatic cirrhosis with stigmata of po rtal hypertension. LI-RADS Categories: LR-TIV = Tumor in vein [...] at risk for hepatocellular carcinoma. The [facility] southing criteria for definite hepatocellular carcinoma are concordant for the LI-RADS and OPTN systems. LI-RADS criteria and documentation are a vailable online at https://www.acr.org/Clinical-Resources/R glifklpw-xux-Jnrg-Systems/LI-RADS. This report utilizes LI-RADS version 2018. I have personally reviewed the image(s) and the resident's interpretation and agree with the findings, Zeus lundy at 09/04/2019 2:43 PM Thank you for letting us participate in the care of this patient. For questions regarding this report, please contact e number below. Jia Bledsoe MD IMG CT ORDERABLES CT Chest wo Contrast (Generic) (09/04/2019 11:11 AM EST) Anatomical Region Laterality Modality Chest Computed Tomography Specimen (Source) Anatomical Location Collection Method / Collectio n Time Received Time / Laterality Volume Impressions 09/04/2019 2:43 PM EST 1. ??Lesion 1: Segment 4, site of prior embolization, LR-TR nonviable 2. ??Lesion 2: Segment 7/8, 14 mm, LR-3 3. ??Hepatic cirrhosis with stigmata of portal hypertension. LI-RADS Categories: LR-TIV = Tumor in vein [...] documentation are a vailable online at https://www.acr.org/Clinical-Resources/R wndtmuay-ofb-Lcru-Systems/LI-RADS. This report utilizes LI-RADS version 2018. I have personally reviewed the image(s) and the resident's interpretation and agree with the findings, Zeus lundy at 09/04/2019 2:43 PM Thank you for letting us participate in the care of this patient. For questions regarding this report, please contact th e number below. ? Narrative 09/04/2019 2:43 PM EST EXAMINATION: CT ABDOMEN WWO CONTRAST, CT CHEST WO CONTRAST (GENERIC) CLINICAL HISTORY: 64-year-old male with hepatocellular carcinoma status post bland embolization. Known lung nodules, evaluate for metastatic disease. TECHNIQUE: Helical CT of the chest was p erformed without intravenous contrast. Helical CT of the abdomen was performed before and after the intravenous administration of contrast. Administered 102.0 ml of OMNIPAQUE 350.00 mg/ml. Oral contrast was administered. COMPARISON: Comparison is made to CT of the Chest, Abdomen, and Pelvis dated 04/19/2019. Correlation is made to MRI of the Abdomen dated 07/14/2019 and [place] Hepatic Embolization dated 07/31/2019. FINDINGS: CT of the Chest: Lungs and large airways: There is a stab le 4 mm pulmonary nodule within the left lower lobe (series 4, image 53). There i s an additional stable 5 mm pulmonary nodule within the left posterior costoph renic angle (series 4, image 57). There is no new pulmonary nodule. There is no pulmonary consolidation. The major airways are patent. Pleura: No effusion. Heart/vasculature: Cardiac size is at th e upper limits of normal. There is moderate atherosclerotic calcification p redominantly within the left anterior descending coronary artery. There is ce cification of the aortic valve. Lymph nodes/Mediastinum/Suad: There are a few stable subcentimeter mediastinal lymph nodes, which do not meet size crit eria for pathologic enlargement, and are likely reactive. The largest of these is a precarinal lymph node with a short axis diameter of 8 mm (series 3, image 2 9). There is no pathologically enlarged mediastinal lymphadenopathy. CT of the Abdomen: Prior hepatic interventions: * ??07/31/2019: [place] embolization of lef t hepatic lobe from segment 4 left hepatic artery branch. Liver Morphology: There is a macronodula r and lobulated contour to the hepatic parenchyma. The caudate lobe is enlarged . There there are a few hypoattenuating lesions within both lobes of the liver, not significantly changed as compared to the prior examinations, and consistent w ith hepatic cysts on prior MRI. Focal hepatic lesions: Yes. Lesion 1: Previously treated left segmen t 4 hepatic mass (series 3, image 63; series 8, image 17; series 7, image 17; series 11, image 16). Size: 36 x 38mm, previously 54 x 39 mm Enhancement: There is persistent nodular hyperdense material present on the noncontrast examination, secondary to co ntrast from embolization. There is no arterial enhancement; there is no signif icant change in Hounsfield units on multiphase imaging, consistent with none nhancement. Washout or pseudocapsule: None. Change from prior: Decreased in size wit hout enhancement. LI-RADS: LR-TR Nonviable Lesion 2: Segment 7/8, series 7, image 2 7 Size: 14mm Enhancement: Hypervascular on arterial p hase enhancement; equal enhancement to hepatic parenchyma on portal venous and delayed imaging. Washout or pseudocapsule: None. Change from prior: Unable to assess; analy or CT examination is only portal venous phase. This lesion was present on MRI of the abdomen dated 07/14/2019; at that time, there was no associated T2 hyperin tensity washout or pseudocapsule. LI-RADS: 3 Portal Vein: Widely Patent. Varices: Perigastric and perisplenic Ascites: None. Spleen: Heterogeneous enhancement which persists on delayed imaging. Bile ducts: Nondilated. Gallbladder: There are layering calcifie d gallstones. The gallbladder wall is at the upper limits of normal for thickness . There is no pericholecystic fluid or pericholecystic fat infiltration. Pancreas: Normal. Adrenal: Normal. Kidneys: There is a stable right interpo lar 6.6 cm simple renal cyst. The left kidney is unremarkable. Vasculature: Visualized aspects of the a bdominal aorta are within normal limits. There is no aneurysm. There visualized p ortions of the inferior vena cava are within normal limits. Lymph nodes: There are prominent retrope ritoneal, predominantly pericarinal and periaortic lymph nodes which have increa sed in size and number as compared to the prior examination. For instance, the re is a periaortic lymph node with a short axis diameter of 11 mm, previously 8 mm (series 8, image 44). Additionally, there is a preaortic lymph node which has increased in size with a short axis diameter of 10 mm, previously 6 mm (series 8, image 56). Bowel: There are a few scattered colonic diverticula without secondary signs of acute diverticulitis. The stomach is und er distended, limiting evaluation. There are inflammatory changes surrounding the duodenum without associated wall thickening. There is no hyperemia of the duodenum. Visualized aspects of the small bowel are within normal limits. Peritoneum and mesentery: As noted previ ously, and slightly progressed from the prior examination, is mesenteric fat str anding along the retroperitoneum and mesenteric root predominantly posterior to the duodenum and extending superiorly into the zac hepatis and retroperitone um. This is in the region of increasing prominent lymph nodes, as described abov e. This is likely secondary to portal hypertension. Abdominal wall: Normal. Osseous structures: There are degenerati ve changes of the visualized spine with endplate sclerosis, osteophyte formation . There is vacuum disc phenomenon at several levels within the thoracic spine . There is a stable lucent 8 mm lesion within the T11 vertebral body (series 60 2, image 64). On prior MRI, this demonstrated T2 hyperintensity, T1 hyper intensity, without enhancement, likely related to a small intraosseous hemangio ma. Procedure Note Zeus Berger MD - 09/04/2019Form atting of this note might be different from the original. EXAMINATION: CT ABDOMEN WWO CONTRAST, CT CHEST WO CONTRAST (GENERIC) CLINICAL HISTORY: 64-year-old male with hepatocellular carcinoma status post bland embolization. Known lung nodules, evaluate for metastatic disease. TECHNIQUE: Helical CT of the chest was p erformed without intravenous contrast. Helical CT of the abdomen was performed before and after the intravenous administration of contrast. Administered 102.0 ml of OMNIPAQUE 350.00 mg/ml. Oral contrast was administered. COMPARISON: Comparison is made to CT of the Chest, Abdomen, and Pelvis dated 04/19/2019. Correlation is made to MRI of the Abdomen dated 07/14/2019 and [place] Hepatic Embolization dated 07/31/2019. FINDINGS: CT of the Chest: Lungs and large airways: There is a stab le 4 mm pulmonary nodule within the left lower lobe (series 4, image 53). There i s an additional stable 5 mm pulmonary nodule within the left posterior costoph renic angle (series 4, image 57). There is no new pulmonary nodule. There is no pulmonary consolidation. The major airways are patent. Pleura: No effusion. Heart/vasculature: Cardiac size is at th e upper limits of normal. There is moderate atherosclerotic calcification p redominantly within the left anterior descending coronary artery. There is ce cification of the aortic valve. Lymph nodes/Mediastinum/Suad: There are a few stable subcentimeter mediastinal lymph nodes, which do not meet size crit eria for pathologic enlargement, and are likely reactive. The largest of these is a precarinal lymph node with a short axis diameter of 8 mm (series 3, image 2 9). There is no pathologically enlarged mediastinal lymphadenopathy. CT of the Abdomen: Prior hepatic interventions: * 07/31/2019: [place] embolization of left hepatic lobe from segment 4 left hepatic artery branch. Liver Morphology: There is a macronodula r and lobulated contour to the hepatic parenchyma. The caudate lobe is enlarged . There there are a few hypoattenuating lesions within both lobes of the liver, not significantly changed as compared to the prior examinations, and consistent w ith hepatic cysts on prior MRI. Focal hepatic lesions: Yes. Lesion 1: Previously treated left segmen t 4 hepatic mass (series 3, image 63; series 8, image 17; series 7, image 17; series 11, image 16). Size: 36 x 38mm, previously 54 x 39 mm Enhancement: There is persistent nodular hyperdense material present on the noncontrast examination, secondary to co ntrast from embolization. There is no arterial enhancement; there is no signif icant change in Hounsfield units on multiphase imaging, consistent with none nhancement. Washout or pseudocapsule: None. Change from prior: Decreased in size wit hout enhancement. LI-RADS: LR-TR Nonviable Lesion 2: Segment 7/8, series 7, image 2 7 Size: 14mm Enhancement: Hypervascular on arterial p hase enhancement; equal enhancement to hepatic parenchyma on portal venous and delayed imaging. Washout or pseudocapsule: None. Change from prior: Unable to assess; analy or CT examination is only portal venous phase. This lesion was present on MRI of the abdomen dated 07/14/2019; at that time, there was no associated T2 hyperin tensity washout or pseudocapsule. LI-RADS: 3 Portal Vein: Widely Patent. Varices: Perigastric and perisplenic Ascites: None. Spleen: Heterogeneous enhancement which persists on delayed imaging. Bile ducts: Nondilated. Gallbladder: There are layering calcifie d gallstones. The gallbladder wall is at the upper limits of normal for thickness . There is no pericholecystic fluid or pericholecystic fat infiltration. Pancreas: Normal. Adrenal: Normal. Kidneys: There is a stable right interpo lar 6.6 cm simple renal cyst. The left kidney is unremarkable. Vasculature: Visualized aspects of the a bdominal aorta are within normal limits. There is no aneurysm. There visualized p ortions of the inferior vena cava are within normal limits. Lymph nodes: There are prominent retrope ritoneal, predominantly pericarinal and periaortic lymph nodes which have increa sed in size and number as compared to the prior examination. For instance, the re is a periaortic lymph node with a short axis diameter of 11 mm, previously 8 mm (series 8, image 44). Additionally, there is a preaortic lymph node which has increased in size with a short axis diameter of 10 mm, previously 6 mm (series 8, image 56). Bowel: There are a few scattered colonic diverticula without secondary signs of acute diverticulitis. The stomach is und er distended, limiting evaluation. There are inflammatory changes surrounding the duodenum without associated wall thickening. There is no hyperemia of the duodenum. Visualized aspects of the small bowel are within normal limits. Peritoneum and mesentery: As noted previ ously, and slightly progressed from the prior examination, is mesenteric fat str anding along the retroperitoneum and mesenteric root predominantly posterior to the duodenum and extending superiorly into the zac hepatis and retroperitone um. This is in the region of increasing prominent lymph nodes, as described abov e. This is likely secondary to portal hypertension. Abdominal wall: Normal. Osseous structures: There are degenerati ve changes of the visualized spine with endplate sclerosis, osteophyte formation . There is vacuum disc phenomenon at several levels within the thoracic spine . There is a stable lucent 8 mm lesion within the T11 vertebral body (series 60 2, image 64). On prior MRI, this demonstrated T2 hyperintensity, T1 hyper intensity, without enhancement, likely related to a small intraosseous hemangio ma. IMPRESSION 1. Lesion 1: Segment 4, site of prior em bolization, LR-TR nonviable 2. Lesion 2: Segment 7/8, 14 mm, LR-3 3. Hepatic cirrhosis with stigmata of po rtal hypertension. LI-RADS Categories: LR-TIV = Tumor in vein [...] documentation are a vailable online at https://www.acr.org/Clinical-Resources/R ujgohujs-vqw-Mihm-Systems/LI-RADS. This report utilizes LI-RADS version 2018. I have personally reviewed the image(s) and the resident's interpretation and agree with the findings, Zeus lundy at 09/04/2019 2:43 PM Thank you for letting us participate in the care of this patient. For questions regarding this report, please contact e number below. Jia Bledsoe MD IMG CT ORDERABLES documented in this encounter Visit Diagnoses Diagnosis Hepatocellular carcinoma Malignant neoplasm of liver, primary documented in this encounter Administered Medications Inactive Administered Medications - up to 3 most recent administrations Medication Order MAR Action Action Date Dose Rate Site iohexol (OMNIPAQUE) 350 mg/mL Given 09/04/2019 11:11 AM EST 102 mLs solution 0-200 mL 0-200 mL, Intravenous, ONCE PRN, 1 dose, Starting on Vy 09/04/19 at 1110, Until Vy 09/04/19 at 1111, Per Protocol, Warning Vesicant/Irritant Medication , Radiology Contrast, Routine documented in this encounter Care Teams Expander Machine Operator Relationship Specialty Start Date End Date Camron Suarez MD PCP - General Family Medicine 05/19/19 [address] [facility] [address] [place] [id number] documented as of this encounter
--- OUTSIDE RECORDS SUMMARY | 2022-07-21 01:18 | XMS_ITS | Encounter Summary ---
:1955 Author Organization [facility] [place] [address] Care Team Providers Name Role Phone Camron Suarez MD Primary Care Provider Encounter Details Date Type Department Care Team Description 10/10/2019 Office Visit Gastroenterology at [facility] Mehdi London Chronic hepatitis C without hepatic coma (Primary Dx); [facility] [place] Alcoholic cirrhosis of liver without asc ites; [place] [phone] [facility] (hepatocellular carcinom a); [phone] Center Portal hypertension; [place], [place] Iron deficiency anemia due to chronic blood loss [id number] Social History Tobacco Use Types Packs/Day Years [...] Sign Reading Time Taken Comments Blood Pressure 128/82 10/10/2019 11:33 AM EST Pulse 72 10/10/2019 11:33 AM EST Temperature - - Respiratory Rate - - Oxygen Saturation - - Inhaled Oxygen Concentration - - Weight 96.4 kg (212 lb 8 oz) 10/10/2019 11:33 AM EST Height 181.6 cm (5' 11.5) 10/10/2019 11:33 AM EST Body Mass Index 29.22 10/10/2019 11:33 AM EST documented in this encounter Progress Notes Mehdi London PA - 10/10/2019 11:30 AM EST Gastroenterology and Hepatology Follow Up Note Patient: Benjamín Henry Sex: male : 1955 Provider: Mehdi London PA-C PCP: Camron Suarez MD LIVER HISTORY Decompensated cirrhosis due to HCV and alcoholism -Presented to [facility] March 2019 with acute upper GI bleed Per pt - has bled before but no hospitalization PRBCs x 4 units EGD 04/20/19 with non-bleeding large EV, banded, type 1 gastroesophageal varix with stigmata of recent bleeding, banded Pt declined TIPS d/t fear of HE EGD 05/22/19 w/ large varices, banded, PHG EGD 06/24/19 w/ eradication of varices Rec'd propranolol but patient declining d/t fear of side effects -SUYAPA: was placed on PO iron but taking sparingly d/t fear of side effects -Ascites: Trace noted on US in March and on MRI 07/14/19, no treatment, does have trace LE edema -No HE suspected -EtOH - hard liquor and beer most days since early 20s, unknown exact quantities, as of Sep 2019 still drinking 2-3 drinks daily -HCV risk factors: IVDU, GREGORIA, tattoos -HCV RNA 1,260,443 IU/mL on 05/22/19 -Genotype 3 -Workup negative for other infectious hepatitis (neg HAV/HBV immunity) -Patient reluctant to consider treatment until Sep 2019 Hepatocellular carcinoma -Noted left lobe buldging on non-contrast CT at [facility] March 2019 -Not noted on RUQ ultrasound in hospital -MRI 07/14/19: 55 mm mass in segment 2, read as LI-RADS 5 lesion -Normal AFP 5.6 06/24/19 -CA 19-9 37.0 on 07/14/19 -Underwent bland embolization on 07/31/19 (not biopsied) -CT 09/04/19: left lobe lesion (lesion 1) LR-TR nonviable, segment 7/8 lesion (lesion 2) LR-3 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 Benjamín Henry is 64 y.o. with a history of hepatocellular carcinoma and decompensated cirrhosis related to untreated HCV and alcoholism. He returns today for follow-up after our last meeting on 09/04/19. He didn't start propranolol because of concerns of many side effects (13 of them) - confusion, constipation, weight gain, confusion, trouble sleeping, etc. He is, however, ready to consider starting Epclusa. He is still drinking a couple drinks nightly, mostly hard lemonades, and then 1- 2 shots of liquor atnight before bed in order to calm down. He is still very worried about money, feels stranded. 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 He's still trying to sell his car and house. He saw his PCP last week and had labs drawn, was told things are stable. MEDICATIONS: Current Outpatient Medications Medication Sig Dispense Refill ??? folic acid (FOLVITE) 1 mg Tablet Take 1 tablet by mouth daily. 90 tablet 3 ??? triamterene-hydrochlorothiazide (DYAZIDE) 37.5-25 mg Capsule Take 2 capsules by mouth every morning. ??? pantoprazole (PROTONIX) 40 mg Tablet, Delayed Release (E.C.) Take 1 tablet by mouth daily. 90 tablet 3 ??? propranolol (INDERAL) 20 mg Tablet Take 1 tablet by mouth 2 times daily. (Patient not taking: Reported on 10/10/2019) 60 tablet 3 ??? acetaminophen (TYLENOL) 500 mg Tablet Take 1 tablet by mouth every 6 hours as needed for Pain orFever (Not to exceed 2gm (4 pills) a day). (Patient not taking: Reported on 09/04/2019) ??? bisacodyl (DULCOLAX) [address] 1 suppository rectally daily as needed. (Patient not taking: Reported on 09/04/2019) 60 suppository 3 ??? polyethylene glycol (MIRALAX) 17 gram Powder in Packet Take 17 g by mouth daily as needed. (Patient not taking: Reported on 09/04/2019) 14 each 0 ??? ketoconazole (NIZORAL) 2 % Cream ??? Multivitamin Cmb No.21-Iron-FA 18-400 mg-mcg Tablet Take 1 tablet by mouth Daily. ??? CEROVITE SENIOR Tablet ??? triamcinolone (ARISTOCORT) 0.5 % Cream ??? gabapentin (NEURONTIN) 300 mg Capsule Take 1 capsule by mouth 3 times daily. (Patient not taking: Reported on 09/04/2019) 90 capsule 12 ??? ferrous sulfate 325 mg (65 mg iron) Tablet ??? thiamine (THIAMINE) Take 1 tablet by mouth daily. (Patient not taking: Reported on 10/10/2019) 30tablet 3 No current facility-administered medications for this visit. ALLERGIES/ADR Allergies Allergen Reactions ??? Aspirin Other (See Comments) It makes me bleed. PHYSICAL EXAMINATION: Vitals: 10/10/19 1133 BP: 128/82 BP Location (NBP): Right arm Patient Position: Sitting BP Cuff Sizes: Adult (25-34 cm) Pulse: 72 Weight: 96.4 kg (212 lb 8 oz) Height: 181.6 cm (5' 11.5) Body mass index is 29.22 kg/m??. Constitutional: Well appearing, appropriate, no acute distress Skin: No cyanosis, no palmar erythema, no jaundice, no spider angiomata Head: Subtle temporal muscle wasting, sclerae anicteric Abdomen: Nontender, nondistended Neurologic: Alert and oriented x 3, no asterixis or tremor Extremities: Trace LE edema, varicose veins, no clubbing, no muscle wasting, no joint swelling PERTINENT LABS AND IMAGING: No results found for this or any previous visit (from the past 24 hour(s)). MELD-Na score: 10 at 09/04/2019 11:27 AM MELD score: 10 at 09/04/2019 11:27 AM Calculated from: Serum Creatinine: 0.71 mg/dL (Rounded to 1 mg/dL) at 09/04/2019 11:27 AM Serum Sodium: 136 mmol/L at 09/04/2019 11:27 AM Total Bilirubin: 0.9 mg/dL (Rounded to 1 mg/dL) at 09/04/2019 11:27 AM INR(ratio): 1.4 at 09/04/2019 11:27 AM Age: 64 years Imaging: CT chest wo and CT abdomen wwo contrast 09/04/19: FINDINGS: ?? CT of the Chest: ?? Lungs and large airways: There is a stable 4 mm pulmonary nodule within the left lower lobe (series 4, image 53). There is an additional stable 5 mm pulmonary nodule within the left posterior costophrenic angle (series 4, image 57). There is no new pulmonary nodule. There is no pulmonary consolidation. The major airways are patent. Pleura: No effusion. Heart/vasculature: Cardiac size is at the upper limits of normal. There is moderate atherosclerotic calcification predominantly within the left anterior descending coronary artery. There is calcification of the aortic valve. Lymph nodes/Mediastinum/Suad: There are a few stable subcentimeter mediastinal lymph nodes, which do not meet size criteria for pathologic enlargement, and are likely reactive. The largest of these is a precarinal lymph node with a short axis diameter of 8 mm (series 3, image 29). There is no pathologically enlarged mediastinal lymphadenopathy. ?? CT of the Abdomen: ?? Prior hepatic interventions: * 07/31/2019: [place] embolization of left hepatic lobe from segment 4 left hepatic artery branch. Liver Morphology: There is a macronodular and lobulated contour to the hepatic parenchyma. The caudate lobe is enlarged. There there are a few hypoattenuating lesions within both lobes of the liver, not significantly changed as compared to the prior examinations, and consistent with hepatic cysts on prior MRI. ?? Focal hepatic lesions: Yes. ?? Lesion 1: Previously treated left segment 4 hepatic mass (series 3, image 63; series 8, image 17; series 7, image 17; series 11, image 16). Size: 36 x 38mm, previously 54 x 39 mm Enhancement: There is persistent nodular hyperdense material present on the noncontrast examination, secondary to contrast from embolization. There is no arterial enhancement; there is no significant change in Hounsfield units on multiphase imaging, consistent with nonenhancement. Washout or pseudocapsule: None. Change from prior: Decreased in size without enhancement. LI-RADS: LR-TR Nonviable ?? Lesion 2: Segment 7/8, series 7, image 27 Size: 14mm Enhancement: Hypervascular on arterial phase enhancement; equal enhancement to hepatic parenchyma on portal venous and delayed imaging. Washout or pseudocapsule: None. Change from prior: Unable to assess; prior CT examination is only portal venous phase. This lesion was present on MRI of the abdomen dated 07/14/2019; at that time, there was no associated T2 hyperintensity washout or pseudocapsule. LI-RADS: 3 ?? Portal Vein: Widely Patent. Varices: Perigastric and perisplenic Ascites: None. Spleen: Heterogeneous enhancement which persists on delayed imaging. ?? Bile ducts: Nondilated. Gallbladder: There are layering calcified gallstones. The gallbladder wall is at the upper limits of normal for thickness. There is no pericholecystic fluid or pericholecystic fat infiltration. Pancreas: Normal. Adrenal: Normal. Kidneys: There is a stable right interpolar 6.6 cm simple renal cyst. The left kidney is unremarkable. ?? Vasculature: Visualized aspects of the abdominal aorta are within normal limits. There is no aneurysm. There visualized portions of the inferior vena cava are within normal limits. Lymph nodes: There are prominent retroperitoneal, predominantly pericarinal and periaortic lymph nodes which have increased in size and number as compared to the prior examination. For instance, there is a periaortic lymph node with a [...] signs of acute diverticulitis. The stomach is under distended, limiting evaluation. There are inflammatory changes surrounding the duodenum without associated wall thickening. There is no hyperemia of the duodenum. Visualized aspects of the small bowel are within normal limits. Peritoneum and mesentery: As noted previously, and slightly progressed from the prior examination, is mesenteric fat stranding along the retroperitoneum and mesenteric root predominantly posterior to the duodenum and extending superiorly into the zac hepatis and retroperitoneum. This is in the region of increasing prominent lymph nodes, as described above. This is likely secondary to portal hypertension. Abdominal wall: Normal. ?? Osseous structures: There are degenerative changes of the visualized spine with endplate sclerosis, osteophyte formation. There is vacuum disc phenomenon at several levels within the thoracic spine. There is a stable lucent 8 mm lesion within the T11 vertebral body (series 602, image 64). On prior MRI, this demonstrated T2 hyperintensity, T1 hyperintensity, without enhancement, likely related to a small intraosseous hemangioma. ?? IMPRESSION 1. Lesion 1: Segment 4, site of prior embolization, LR-TR nonviable 2. Lesion 2: Segment 7/8, 14 mm, LR-3 3. Hepatic cirrhosis with stigmata of portal hypertension. ASSESSMENT & PLAN: Benjamín Henry is a 64 y.o. male with hepatocellular carcinoma, s/p IR bland embolization on 55 mm LR-5 lesion in the left hepatic lobe, and decompensated hepatic cirrhosis secondary to chronic alcohol abuse and untreated hepatitis C infection, genotype 3. He was admitted to [facility] from 04/20-04/22 after presenting to OSH with hematemesis and melena. He was found to have large esophageal varices and gastroesophageal varix now s/p banding protocol and eradicated on recent EGD on 06/24/19. He has declined awork-up for liver transplant. He declined TIPS during hospitalization for fear of postprocedural hepatic encephalopathy and is now also declining treatment with a nonselective beta barbara. He is, however, now interested in starting antiviral therapy for his HCV infection. I do believe he would benefit from this as it could prolong survival. I had a thorough discussion with him about the importance of a goal for abstinence from all alcohol use, as well as adherence to treatment regimen, once approved, with regular lab work, phone calls with nursing staff, and follow-up appointments post-treatment. I believe that if he were to tolerate Epclusa well, which he should, then he may be more amenable to starting the propranolol that we discussed previously. I also reiterated how much he would benefit from the propranolol, that this not only will decrease his risk of re-bleeding, but may help with some of his anxiety. He would still like to hold off on starting this. He met with a retail account representative from the [facility] to discuss the HCV treatment process in detail. As for his HCC, we discussed that the plan will still be to coordinate a follow- up MRI and labs in November to assess efficacy of the embolization. He clinically continues to do well with no new concerns of decompensation. I do not have his lab results from last week at his PCP office, so we will reach out to see if at least a hemoglobin was checked for his anemia. Plan: -Submit prior authorization for Epclusa monotherapy x 24 weeks, since he is decompensated based on prior variceal bleeding. He is not a candidate for ribavirin given his ongoing iron deficiency anemia,anxiety, and overall fear of side effects. -Discontinue pantoprazole. This is no longer needed as his varices are eradicated and this will interact with Epclusa. -Provided additional treatment process information. -Obtain recent labs at PCP office last week. -Again suggested he start propranolol, but will hold off for now. Plan would be for 20 mg twice daily, with possible increase to 40 mg twice daily. Goal HR between 50-60 bpm and SBP should not drop below 90 mmHg. Advised he obtain a home BP cuff. -Strongly recommend he continue daily iron supplement. May need to consider IV iron infusions thoughhe is against this idea. -Continue to work on sobriety from alcohol. Consider inpatient rehab/detox. -No treatments needed for ascites or encephalopathy. -For pain - follow-up with primary care or we may refer to the Pain Clinic. Acetaminophen 2000 mg would be safe if he was not drinking. Avoid NSAIDs. Reassured safety of gabapentin. -Follow-up in November with MRI and labs prior. This may coincide nicely with week 4 treatment labs depending on when he starts the Epclusa. 28 of this 30 minute visit was in [id number] discussion regarding disease, prognosis and treatment. Mehdi London PA-C Section of Gastroenterology [place] [address] Cc: Camron Suarez MD @PCPADD@ documented in this encounter Plan of Treatment Scheduled Procedures Name Priority Associated Diagnoses Date/Time EGD, UPPER GI ENDOSCOPY Alcoholic cirrhosis, uns pecified whether ascites present Portal hypertension documented as of this encounter Visit Diagnoses Diagnosis Chronic hepatitis C without hepatic coma - Primary Alcoholic cirrhosis of liver without asc ites Alcoholic cirrhosis of liver HCC (hepatocellular carcinoma) Malignant neoplasm of liver, primary Portal hypertension Iron deficiency anemia due to chronic bl ood loss Iron deficiency anemia secondary to bloo d loss (chronic) documented in this encounter Care Teams Desktop Publishing Specialist Relationship Specialty Start Date End Date Camron Suarez MD PCP - General Family Medicine 05/19/[address] [place] [phone] documented as of this encounter
--- OUTSIDE RECORDS SUMMARY | 2022-07-21 01:18 | XMS_ITS | Encounter Summary ---
:1955 Author Organization [facility] [place] [address] Care Team Providers Name Role Phone Camron Suarez MD Primary Care Provider Reason for Visit Reason Comments Medication Management Encounter Details Date Type Department Care Team Description 12/19/2019 Specialty Pharm[place] [facility] [place]apa Medication [facility] [place] [address] Social History Tobacco Use Types Packs/Day Years [...] encounter Progress Notes Milli Thapa RPH - 12/19/2019 12:04 PM EDT Specialty Pharmacy Consultation; Milli Thapa RPH Comprehensive Medication Management (CMM) Benjamín Henry Diagnosis: HCV Therapy Start Date: 11/05/19 Contact in person or via telephone: telephone Mr. Benjamín Henry is a 64 y.o. (1955) male who was contacted in regard to specialty medication. Spoke with patient regarding EPCLUSA. A review of the medication therapy was performed. The medication was Refilled as scheduled, and all medication related questions and concerns were addressed. The specialty pharmacy staff will follow up with the patient 10 days prior to next refill. Is the patient willing to proceed with the Clinical Assessment? Yes Summary and Recommendations: Benjamín Henry??was contacted regarding his hepatitis C treatment with Epclusa.?He has 12 tablets remaining (including today's dose) of his current supply which aligns with his start date and his report of no missed doses throughout the treatment thus far. He reports that he seems to be tolerating the medication well at this point and his only side effects are occasional mild headaches and itching.He??takes??the 1 tablet of Epclusa??at around 10 or 11am every day.??He has been keeping track of his doses on his calendar.??He??reports that he??is staying well hydrated??by drinking plenty of mineral water every day. He understands the??importance of adherence. He reports no changes in allergies, medications or medical conditions. He is aware that he needs to get labs done as soon as possible in order to get his PA extended for the full 24 weeks of treatment. When I spoke to him last week about his labs, I had told him that it was fine to delay labs due to his concerns with COVID-19, however, I now see that he needs labs done as soon as possible for the PA. I also reminded him that it is time to throw away his nail clippers, razor, and toothbrush and get new ones. We are refilling the Epclusa and mailing it out to him. He would again like this fill of Epclusa sent to his brother's residence in [place], [place]. No recommendations at this time. Clinic Follow-up needed: yes - Patient needs labs done in order to get PA extended for full 24 week course. Current PA expires 01/12/20. Need to show compliance and change in viral load for PA extensionapproval. Patient is aware that he needs these labs done and will call me back with the location forwhere to send orders. Allergies and Drug intolerance: Allergies Allergen Reactions ??? Aspirin Other (See Comments) It makes me bleed. Special Dietary Requirements: no There is no height or weight on file to calculate BMI. Medication Reconciliation Discrepancies (compared to [facility] med list) -He reports that the only [...] Medications Medication Sig Note Dispense Refill ??? pantoprazole EC (Protonix) 20 mg Tablet, Delayed Release (E.C.) Take 1 tablet by mouth daily. (Patient not taking: Reported on 11/21/2019) 90 tablet 3 ??? sofosbuvir-velpatasvir (Epclusa) 400-100 mg Tablet Take 1 tablet by mouth daily. 11/21/2019: Start date: 11/05/19 Duration: 24 weeks 28 tablet 5 ??? propranolol (INDERAL) 20 mg Tablet Take [...] by mouth daily. 90 tablet 3 ??? ferrous sulfate 325 mg (65 mg iron) Tablet 12/19/2019: Patient not taking ??? triamterene-hydrochlorothiazide (DYAZIDE) 37.5-25 mg Capsule Take [...] values: Lab Results Component Value Date NA 136 09/04/2019 K 3.3 (L) 09/04/2019 CL 101 09/04/2019 CO2 25 09/04/2019 BUN 8 (L) 09/04/2019 CREATININE 0.71 (L) 09/04/2019 GLUCOSE 101 09/04/2019 CALCIUM 8.5 09/04/2019 Lab Results Component Value Date ALT 19 09/04/2019 AST 41 (H) 09/04/2019 ALKPHOS 114 09/04/2019 BILITOT 0.9 09/04/2019 BILIDIR 0.7 (H) 04/22/2019 ALBUMIN 3.2 09/04/2019 PROT 7.9 09/04/2019 Lab Results Component Value Date WBC 3.6 (L) 09/04/2019 HGB 9.6 (L) 09/04/2019 HCT 33.6 (L) 09/04/2019 MCV 72.1 (L) 09/04/2019 PLATELET 128 (L) 09/04/2019 No results found for: HA1C There is no immunization history on file for this patient. Assessment and Recommendations: Title Type of Medication Management: chronic disease management, targeted medication review Referred By: provider Recipient: beneficiary Provider: plan sponsor pharmacist Visit Type: [facility] Follow-up Method of Contact: by telephone Cognitive [...] interactions discussed, lab monitoring and follow-up discussed, therapeutic rationale discussed, adherence and missed doses discussed, health goals discussed, monitoring medication discussed, over the counter products discussed, preventative care discussed, reminder to refill or pickers material handlers medication discussed, self-monitoring discussed, timing of medications [...] interactions discussed, lab monitoring and follow-up discussed, therapeutic rationale discussed, adherence and missed doses discussed, health goals discussed, monitoring medication discussed, over the counter products discussed, preventative care discussed, reminder to refill or pickers material handlers medication discussed, self-monitoring discussed, timing of medications discussed, referral needs discussed Treatment Outcomes 12/19/2019 1207 Disease progression: Stable Reviewed in detail with [...] Assessment: Does the patient have a primary medicare biller? no Does the patient have an emergency contact on file: Yes Does patient need referral to geriatric social worker: No Does patient need referral to advocacy [...] Amount: $3.00 Day Supply: 28 Date Needed: 12/31/19 Copay assistance required: no Therapy Assessment: Current Medication Dosing/Route/Frequency: Epclusa 1 tablet by mouth once daily x 24 weeks Appropriate Therapy: Yes Genotype: 3 ?Treatment Naive/Experienced:??Naive ?Fibrosis Score:??F4 (decompensated) ?HX of liver transplant:??no ?HBV Coinfection:??no ?HIV Coinfection:??no Effective: TBD Most Recent HCV Viral Load: 1,260,443 IU/mL pre-treatment Undetectable RVR4 Labs: TBD Patient-Reported Side Effects: yes - occasional mild headache, itching Side Effect Mitigation Strategies Discussed: Yes Patient [...] Patient: Yes Did Care Plan Change? No Interventions (if applicable): No N/A Patient [...] of Days Supply Remaining from Prior Fill: 12 (including today) Pharmacist follow-up needed: Yes Patient Satisfaction with Care/Services Provided: Yes Informed patient of specialty pharmacy services: Yes -Patient received welcome packet: Yes Date received: 11/12/19 Delivery Method: mail -Patient received and returned Rights & Responsibilities: [...] were made at the appointment and that [facility] is providing recommendations (summary located at top of note) for provider review and follow up. Milli Thapa RPH 12/19/19 12:07 PM Milli Thapa, [facility] - 12/19/2019 12:04 PM EDT Patient called back. He would like lab orders sent to [facility] in [place], [place]. The Fax # for the lab is [phone]. Mynor Thapa, Krystian 12/19/2019 12:55 PM documented in this encounter Plan of [...] Understanding Action Plan 12:42 PM [facility] EDT) Note: Formatting of this note might be d ifferent from the original. SVR12 through treatment with Epclusa x 2 4 weeks documented as of this encounter Visit Diagnoses Not on filedocumented in this encounter Care Teams Transistor Tester Relationship Specialty Start Date End Date Camron Suarez MD PCP - General Family Medicine 05/19/[address] [place] [phone] documented as of this encounter
--- OUTSIDE RECORDS SUMMARY | 2022-07-21 01:18 | XMS_ITS | Encounter Summary ---
:1955 [place] [address] Care Team Providers Name Role Phone Camron Suarez MD Primary Care Provider Encounter Details Date Type Department Care Team Description 09/04/2019 Laboratory Lab 3L Christy Decompensated [place] [id number] Social History Tobacco Use Types Packs/Day Years [...] Name Priority Date/Time Associated Diagnosis Comme nts HEMOGRAM Routine 09/04/2019 11:27 Decompensated HCV Result s for this AM EST cirrhosis procedure are i n the results section. DIFFERENTIAL, Routine 09/04/2019 11:27 Decompensated HCV Resul ts for this AUTOMATED AM EST cirrhosis procedure are i n the results section. HC VENIPUNCTURE Routine 09/04/2019 11:27 Decompensated HCV Res ults for this AM EST cirrhosis procedure are i n the results section. HC CBC,PLT & AUTO Routine 09/04/2019 11:27 Decompensated HCV DIFF AM EST cirrhosis COMPREHENSIVE Routine 09/04/2019 11:27 Decompensated HCV Resul ts for this METABOLIC PANEL AM EST cirrhosis procedure ar e in (NON-FASTING) the results section. documented in this encounter Results (ABNORMAL) Differential, Automated (09/04/2019 11:27 AM EST) [facility] Method Time Signature Neutrophils % 54.7 % [facility] Neutr Abs (ANC) 1.99 1.70 - [facility] 6.10 [facility] x10(3)/[facility] LABORATORY Lymphocytes % 20.6 % [facility] Lymphocytes Abs 0.8 (L) 0.9 - 3.2 [facility] x10(3)/[facility] LABORATORY Monocytes % 17.0 % [facility] Monocyte Abs 0.6 0.3 - 0.9 [facility] x10(3)/[facility] LABORATORY Eosinophils % 5.8 % [facility] Eosinophils Abs 0.2 0.0 - 0.4 [facility] x10(3)/[facility] LABORATORY Basophils % 1.6 % [facility] Basophils Abs 0.1 0.0 - 0.1 [facility] x10(3)/[facility] LABORATORY Immature Gran % 0.30 % [facility] Comment: Immature granulocytes(IG's)percentage an d absolute count will include metamyelocytes, myelocytes, and promyelo cytes. Blood smears from CBCs yielding IG's will be scanned manually for concor dance. If this scan disagrees with the automated IG or if promyelocytes are not ed, a manual differential will be performed. Haily Gran Abs 0.01 0.00 - 0.04 x10(3)/[facility] Specimen Anatomical Collection Method Collection Time Receive d Time (Source) Location / / Volume Laterality Blood specimen 09/04/2019 11:27 9 (specimen) AM EST 11:39 AM EST Resulting Agency Comment Spec In Lab Mehdi KESSLER HEMATOLOGY ORDERABLES Performing Organization Address City/State/ZIP Code Phon e Number [address] (ABNORMAL) Hemogram (09/04/2019 11:27 AM EST) Analysis Performed At Patho logist Time Signature WBC 3.6 (L) 4.0 - 9.5 [facility] LAB[facility] RBC 4.66 4.58 - [place] 5.54 [facility] x10(6)/[facility] LABORATORY Hemoglobin 9.6 (L) 13.7 - [facility] 16.5 gm/dL [facility] Hematocrit 33.6 (L) 40.5 - [facility] 48.5 % [facility] MCV 72.1 (L) 82.9 - [facility] 93.1 [facility] LAB[facility]ATORY MCH 20.6 (L) 27.5 - [facility] 32.1 pg [facility] MCHC 28.6 (L) 32.0 - [facility] 35.7 gm/dL [facility] Platelets 128 (L) 145 - 357 [facility] x10(3)/[facility] LABORATORY RDWSD 54.9 (H) 36.0 - [facility].0 [facility] LABORATORY RDWCV 21.1 (H) 11.4 - [facility] 13.8 % [facility] MPV 9.4 7.6 - 12.9 [facility] nRBC % Auto 0.0 % [facility] nRBC Abs Auto 0.000 0.000 - [facility] x10(3)/[facility] LABORATORY Specimen Anatomical Collection Method Collection Time Receive d Time (Source) Location / / Volume Laterality Blood specimen 09/04/2019 11:27 9 (specimen) AM EST 11:39 AM EST Resulting Agency Comment Spec In Lab Mehdi KESSLER HEMATOLOGY ORDERABLES Performing Organization Address City/State/ZIP Code Phon e Number [address] (ABNORMAL) Comprehensive metabolic panel (non-fasting) (09/04/2019 11:27 AM EST) athologist Signature Glucose Lvl 101 65 - 199 [facility] mg/dL [facility] Comment: Diabetes: >=200 mg/dL plus symp toms BUN 8 (L) 10 - 20 mg/dL [facility] Creatinine 0.71 (L) 0.80 - 1.50 mg/dL [facility] Sodium 136 135 - 145 mmol/L [facility] Potassium 3.3 (L) 3.5 - 5.0 mmol/L [facility] Comment: Please note: ??Patients with WBC >100,00 0 may have falsely elevated Potassium levels. ??For accurate Potassium quantif ication in these patients send serum separator tube (gold top) for subsequent determinations. ??Contact the Clinical Chemistry Laboratory if there are any qu estions. Chloride 101 98 - 107 mmol/L [facility] CO2 25 22 - 31 mmol/L [facility] Anion Gap 10 5 - 15 mmol/L [facility] Calcium 8.5 8.5 - 10.5 mg/dL [facility] Total Protein 7.9 6.1 - 8.0 gm/dL [facility] Albumin 3.2 3.2 - 5.2 gm/dL [facility] AST 41 (H) 0 - 39 unit/L [facility] ALT 19 0 - 55 unit/L [facility] Alk Phos 114 40 - 130 unit/L [facility] Total Bilirubin 0.9 0.2 - 1.3 mg/dL [facility] Estimated GFR 99 >=60 mL/min/1.73 m?? [facility] Comment: The eGFR was calculated using the CKD-EP I equation. As with all creatinine based estimates of kidney function, eGFR values calculated with the CKD-EPI equation are not accurate in patients wi th acute kidney failure, extremes of body mass or the acutely ill. http://tinyurl.com/DHnkf eGFR 115 >=60 mL/min/1.73 m?? [facility] Comment: The eGFR was calculated using the CKD-EP I equation. As with all creatinine based estimates of kidney function, eGFR values calculated with the CKD-EPI equation are not accurate in patients wi th acute kidney failure, extremes of body mass or the acutely ill. [email or web address] [email or web address] [email or web address] Specimen Anatomical Collection Method Collection Time Receive d Time (Source) Location / / Volume Laterality Blood specimen 09/04/2019 11:27 9 (specimen) AM EST 11:39 AM EST Resulting Agency Comment Spec In Lab Jia Bledsoe MD CHEMISTRY ORDERABLES Performing Organization Address City/[facility] [place] [address] (ABNORMAL) Prothrombin Time (09/04/2019 11:27 AM EST) P athologist Signature PT 16.7 (H) 9.4 - 12.5 [facility] LABORATORY INR 1.4 [facility] Comment: An INR <2.0 indicates adequate [...] Location / / Volume Laterality Blood specimen 09/04/2019 11:27 9 (specimen) AM EST 11:39 AM EST Resulting Agency Comment Spec In Lab Jia Bledsoe MD HEMATOLOGY ORDERABLES Performing Organization Address City/[facility]/[place] [address] documented in this encounter Visit Diagnoses Diagnosis Decompensated HCV cirrhosis Chronic hepatitis C without mention of h epatic coma documented in this encounter Care Teams Senior Planning Analyst Relationship Specialty Start Date End Date Camron Suarez MD PCP - General Family Medicine 05/19/[address] [phone] documented as of this encounter
--- OUTSIDE RECORDS SUMMARY | 2022-07-21 01:18 | XMS_ITS | Encounter Summary ---
:1955 Author Organization [facility] [place] [address] Care Team Providers Name Role Phone Camron Suarez MD Primary Care Provider Encounter Details Date Type Department Care Team Description 02/26/2020 TH Visit Gastroenterology at [facility] Mehdi London HCC (hepatocellular carcinom a) (Primary Dx); (TeleHealth) [facility] CHECO Lucas Alcoholic cirrhosis of liver without asc ites; [place] [address] [facility] Chronic hepatitis C without hepatic coma; [phone] [place] Portal hypertension; [place], [place] Iron deficiency anemia due to chronic blood loss; [address] Acquired hypothyroidism; [phone] Impaired fastin g glucose (Work) Social History Tobacco Use Types Packs/Day Years [...] documented as of this encounter Progress Notes Mehdi London PA - 02/26/2020 2:00 PM EDT HEPATOLOGY FOLLOW-UP TELEPHONE VISIT Patient: Benjamín Henry Sex: male Date of : 1955 PCP: Camron Suarez MD 02/26/20 LIVER HISTORY Decompensated cirrhosis due to HCV and alcoholism -Presented to [facility] March 2019 with acute upper GI bleed [...] early 20s, unknown exact quantities, as of February 2020 still drinking 2-3 drinks daily -HCV risk factors: IVDU, GREGORIA, tattoos -HCV RNA 1,260,443 IU/mL on 05/22/19 -Genotype 3 -Workup negative for other infectious hepatitis (neg HAV/HBV immunity) -Patient reluctant to consider treatment until Sep 2019 -Treatment: started SOF/DANIELA x 24 weeks 11/05/19 Side effects: minimal headaches Labs 12/23/19 (approx 7 weeks): HCV RNA undetected Labs 02/26/20: (16 weeks): HCV RNA pending ?? 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 Cirrhosis, alcoholic K70.30 ??? Esophageal varices I85.00 ??? Chronic hepatitis C without hepatic coma B18.2 ??? HCC (hepatocellular carcinoma) C22.0 ??? Iron deficiency anemia due to chronic blood loss D50.0 ??? Portal hypertension K76.6 INTERVAL HISTORY Benjamín Henry is a 65 y.o. male with a history of hepatocellular carcinoma and decompensated cirrhosis related to HCV and alcoholism. We last spoke on 01/12/20 for a phone call visit and he again follows up today via phone, following MRI and labs earlier this week on 02/24/20. Patient verbally consents to this telephone visit and understands that this visit may be billed, similar to a clinic office visit. He is doing pretty well from a GI perspective. He is still not taking any iron supplement for fear of becoming constipated. He has been adherent to the Epclusa and has not missed any doses and does nothave any side effects that he is aware of. He is staying busy with working on his house, still trying to sell it, and a lot of activity with the local [employer]. He plans to follow-up with primary care soon and states that he was supposed to have some labs done but was hoping they could be done with his labs here. REVIEW OF SYSTEMS As in the HPI, the rest of the review of systems were negative. MEDICATIONS Current Outpatient Medications Medication Sig Dispense Refill ??? triamterene-hydrochlorothiazide (DYAZIDE) 37.5-25 mg Capsule Take 2 capsules by mouth every morning. ??? ferrous sulfate 325 mg (65 mg iron) Tablet Take 1 tablet by mouth 2 times daily. (Patient not taking: Reported on 01/16/2020) 60 tablet 11 ??? sofosbuvir-velpatasvir (Epclusa) 400-100 mg Tablet Take 1 tablet by mouth daily. 28 tablet 5 ??? acetaminophen (TYLENOL) 500 [...] Reported on 02/26/2020) 90 tablet 3 ??? thiamine (THIAMINE) Take 1 tablet by mouth daily. (Patient not taking: Reported on 10/10/2019) 30tablet 3 No current facility-administered medications for this visit. ALLERGIES Allergies Allergen Reactions ??? Aspirin Other (See Comments) It makes me bleed. PHYSICAL EXAM There were no vitals filed for this visit. There is no height or weight on file to calculate BMI. Not performed RESULTS Recent Results (from the past 72 hour(s)) Prothrombin Time Result Value Ref Range PT 14.6 (H) 9.4 - 12.5 sec INR 1.3 Comprehensive metabolic panel (non-fasting) Result Value Ref Range Glucose Lvl 93 65 - 199 mg/dL BUN 7 (L) 10 - 20 mg/dL Creatinine 0.76 (L) 0.80 - 1.50 mg/dL Sodium 135 135 - 145 mmol/L Potassium 3.6 3.5 - 5.0 mmol/L Chloride 99 98 - 107 mmol/L CO2 22 22 - 31 mmol/L Anion Gap 14 5 - 15 mmol/L Calcium 8.9 8.5 - 10.5 mg/dL Total Protein 8.1 (H) 6.1 - 8.0 gm/dL Albumin 3.9 3.2 - 5.2 gm/dL AST 65 (H) 0 - 39 unit/L ALT 34 0 - 55 unit/L Alk Phos 94 40 - 130 unit/L Total Bilirubin 1.4 (H) 0.2 - 1.3 mg/dL eGFR 96 >=60 mL/min/1.73 m?? eGFR 112 >=60 mL/min/1.73 m?? Hemogram Result Value Ref Range WBC 3.9 (L) 4.0 - 9.5 x10(3)/mcL RBC 5.60 (H) 4.58 - 5.54 x10(6)/mcL Hemoglobin 12.4 (L) 13.7 - 16.5 gm/dL Hematocrit 41.8 40.5 - 48.5 % MCV 74.6 (L) 82.9 - 93.1 fL MCH 22.1 (L) 27.5 - 32.1 pg MCHC 29.7 (L) 32.0 - 35.7 gm/dL Platelets 131 (L) 145 - 357 x10(3)/mcL RDWSD 54.3 (H) 36.0 - 45.0 fL RDWCV 21.4 (H) 11.4 - 13.8 % MPV 9.7 7.6 - 12.9 fL nRBC % Auto 0.0 % nRBC Abs Auto 0.000 0.000 - 0.000 x10(3)/mcL Differential, Automated Result Value Ref Range Neutrophils % 48.9 % Neutr Abs (ANC) 1.93 1.70 - 6.10 x10(3)/mcL Lymphocytes % 34.8 % Lymphocytes Abs 1.4 0.9 - 3.2 x10(3)/mcL Monocytes % 10.7 % Monocyte Abs 0.4 0.3 - 0.9 x10(3)/mcL Eosinophils % 3.3 % Eosinophils Abs 0.1 0.0 - 0.4 x10(3)/mcL Basophils % 2.0 % Basophils Abs 0.1 0.0 - 0.1 x10(3)/mcL Immature Gran % 0.30 % Haily Gran Abs 0.01 0.00 - 0.04 x10(3)/mcL Scan, Peripheral Blood Result Value Ref Range Plat Estimate Decreased RBC Morphology Abnormal Microcytes 1-5 /HPF Hypochromia Slight Tear Drop Cells 1-5 /HPF TSH Result Value Ref Range TSH 5.62 (H) 0.27 - 4.20 mcIU/mL Iron and TIBC Result Value Ref Range Iron 46 45 - 160 mcg/dL TIBC 508 (H) 250 - 450 mcg/dL Iron Saturation 9 (L) 20 - 50 % Hemoglobin A1c Result Value Ref Range Hemoglobin A1C 5.3 4.3 - 5.6 % Est Avg Gluc 105 mg/dL MELD-Na score: 11 at 02/24/2020 3:11 PM MELD score: 11 at 02/24/2020 3:11 PM Calculated from: Serum Creatinine: 0.76 mg/dL (Rounded to 1 mg/dL) at 02/24/2020 3:11 PM Serum Sodium: 135 mmol/L at 02/24/2020 3:11 PM Total Bilirubin: 1.4 mg/dL at 02/24/2020 3:11 PM INR(ratio): 1.3 at 02/24/2020 3:11 PM Age: 64 years Imaging: MRI abdomen wwo contrast 02/24/20: FINDINGS: ?? Lower chest: Normal. ?? Liver: The previously noted LEFT hepatic lobe mass has decreased in size and is nonenhancing, measuring 3.5 cm. No other suspicious or enhancing hepatic masses are noted. Multiple nonenhancing varied sized small low signal lesions are noted on the T1 postcontrast images. Nodular contour of liver, compatible cirrhotic change. The hepatic vessels are widely patent. Bile ducts: Nondilated. Gallbladder: Cholelithiasis. No gallbladder wall thickening. Pancreas: Normal. Spleen: Normal. Adrenals: Normal. Kidneys: Stable RIGHT renal simple cyst ?? Vasculature: No aneurysm. Lymph nodes: No enlarged lymph nodes. Bowel: Nondilated, no inflammatory changes. Peritoneum and mesentery: No ascites or loculated fluid collection. ?? Marrow Signal: Normal. ?? IMPRESSION The previously noted LEFT hepatic lobe mass has decreased in size and is nonenhancing, measuring. No other suspicious or enhancing hepatic lesions are Noted. ASSESSMENT/PLAN Benjamín Henry is a 65 y.o. male with hepatocellular carcinoma, s/p IR bland embolization of a 55 mm LR-5 lesion in the left hepatic lobe July 2019, and decompensated hepatic cirrhosis secondary to chronic alcohol abuse and hepatitis C infection, genotype 3. ??He started a planned 24-week course ofSOF/DANIELA on 11/05/19 and had an undetected viral load on 12/22. Another viral load is pending from 02/23. He appears to be doing fairly well from a liver standpoint and synthetic function is stable on more recent labs, overall MELD of 11. Unfortunately AFP was not drawn and was unable to be added to the previous specimen, but I was able to add labs that were requested by his PCP (A1c, TSH, iron/TIBC) which were all mostly unremarkable. He does definitely still have ongoing iron deficiency, but continues to decline iron supplement for fear of side effects. I am more reassured however by his increasing hemoglobin, now over 12. We have yet to discuss his MRI report in liver tumor conference, scheduled for early next week, although it appears that the previously treated left lobe lesion has decreased in size and is nonenhancing, and there were no new concerning lesions noted. He also still has not been scheduled for a repeat EGD to follow-up esophageal varices. He still is not taking the propranolol weight prescribed earlier, so I have removed this from his medication list. Plan: -Discussed case in liver tumor conference next week. -Await pending results of HCV RNA. -Continue Epclusa daily as directed. Follow-up via phone with Specialty Pharmacy. -Again recommended he take ferrous sulfate 325 mg to be taken twice daily. -Arrange EGD with [facility] for March as previously recommended. -Advised to continue on his vitamins. -Continue efforts to cut down alcohol use as much as possible. -Hepatology clinic follow-up in person TBD based on MRI result, likely 3 months I provided care to the patient today via telephone call; 25 minutes of this telephone visit was spent in discussion with patient on above. CHECO Martin-C Section of Gastroenterology and Hepatology [address] [address] Copy: Camron Suarez MD No ref. provider found documented in this encounter Plan of Treatment [...] Carpenter Understanding Action Plan 12:42 PM [facility] EDT) Note: Formatting of this note might be d ifferent from the original. SVR12 through treatment with Epclusa x 2 4 weeks documented as of this encounter Visit Diagnoses Diagnosis HCC (hepatocellular carcinoma) - Primary Malignant neoplasm of liver, primary Alcoholic cirrhosis of liver without asc ites Alcoholic cirrhosis of liver Chronic hepatitis C without hepatic coma Portal hypertension Iron deficiency anemia due to chronic bl ood loss Iron deficiency anemia secondary to bloo d loss (chronic) Acquired hypothyroidism Unspecified hypothyroidism Impaired fasting glucose documented in this encounter Care Teams Property Coordinator Relationship Specialty Start Date End Date Camron Suarez MD PCP - General Family Medicine 05/19/[address] [phone] documented as of this encounter
--- OUTSIDE RECORDS SUMMARY | 2022-07-21 01:18 | XMS_ITS | Encounter Summary ---
:1955 Author Organization [facility] [place] [address] Care Team Providers Name Role Phone Camron Suarez MD Primary Care Provider Encounter Details Date Type Department Care Team Description 01/15/2020 Telephone MRI at [facility] Olvin Schrader [facility] [place] [address] Social History Tobacco Use Types Packs/Day [...] on filedocumented in this encounter Care Teams Bag Shop Worker Relationship Specialty Start Date End Date Camron Suarez MD PCP - General Family Medicine 05/19/[address] [place] [phone] documented as of this encounter
--- OUTSIDE RECORDS SUMMARY | 2022-07-21 01:18 | XMS_ITS | Encounter Summary ---
:1955 [place] [address] Care Team Providers Name Role Phone Camron Suarez MD Primary Care Provider Encounter Details Date Type Department Care Team Description 01/14/2020 Telephone Gastroenterology at [facility] [place] [address] Social History Tobacco Use Types Packs/Day [...] this encounter Miscellaneous Notes Telephone Encounter - Tiffany Lee - 01/14/2020 1:30 PM EDT Gustavo Mejia Yaniv we are calling as we have received a referral for a procedure in our Endoscopy center in Gastroenterology. Due to the COVID-19 pandemic, we have significantly limited the number of procedures we are performing in order to limit possible COVID exposure as well as preserve hospital supplies. At the current time we are only performing procedures for life threatening emergencies. We hope that you understand and we can assure you that we have you on our list and will be reaching back out to you to schedule as soon as it is appropriate. If you???d like to speak to a provider in the meantime we are happy to get you set up in our virtual visits (telehealth, phone) documented in this encounter Plan of Treatment [...] Carpenter Understanding Action Plan 12:42 PM [facility] EDT) Note: Formatting of this note might be d ifferent from the original. SVR12 through treatment with Epclusa x 2 4 weeks documented as of this encounter Visit Diagnoses Not on filedocumented in this encounter Care Teams Registered Route Associate Relationship Specialty Start Date End Date Camron Suarez MD PCP - General Family Medicine 05/19/[address] [phone] documented as of this encounter
--- OUTSIDE RECORDS SUMMARY | 2022-07-21 01:18 | XMS_ITS | Encounter Summary ---
:1955 Author Organization [facility] [place] [address] Care Team Providers Name Role Phone Camron Suarez MD Primary Care Provider Encounter Details Date Type Department Care Team Description 02/27/2020 Telephone Gastroenterology at [facility] Zoila Groves, [place] [address] Social History Tobacco Use Types Packs/Day [...] encounter Miscellaneous Notes Telephone Encounter - Zoila Groves - 02/27/2020 9:01 AM EDT No answer and no VM only one number listed unable to leave a message. documented in this encounter Plan of Treatment Scheduled Procedures Name Priority Associated Diagnoses Date/Time EGD, UPPER GI ENDOSCOPY Alcoholic cirrhosis, uns pecified whether ascites present Portal hypertension documented as of this encounter Goals Goal Patient Goal Associated Recent Patient-Stated? Author Type Problems Progress DH Home Medication Patient On track No Elier , Compliance and Facing (03/15/2020 Milli Carpenter, Understanding Action Plan 12:42 PM [facility] EDT) Note: Formatting of this note might be d ifferent from the original. SVR12 through treatment with Epclusa x 2 4 weeks documented as of this encounter Visit Diagnoses Not on filedocumented in this encounter Care Teams Mental Health Program Manager Relationship Specialty Start Date End Date Camron Suarez MD PCP - General Family Medicine 05/19/[address] [place] [phone] documented as of this encounter
--- OUTSIDE RECORDS SUMMARY | 2022-07-21 01:18 | XMS_ITS | Encounter Summary ---
:1955 Author Organization [facility] [place] [address] Care Team Providers Name Role Phone Camron Suarez MD Primary Care Provider Reason for Visit Reason Comments Medication Management Encounter Details Date Type Department Care Team Description 11/07/2019 Specialty Pharmacy Pharmacy at [facility] Milli Thapa Medication [facility] [place] [address] Social History Tobacco Use Types Packs/Day Years [...] encounter Progress Notes Milli Thapa RPH - 11/07/2019 10:44 AM EST Specialty Pharmacy Consultation; Milli Thapa RPH Comprehensive Medication Management (CMM) Mohsendago Purvis Diagnosis: HCV Therapy Start Date: 11/05/19 Mr. Benjamín Henry is a 64 y.o. (1955) male who was contacted in regard to specialty medication. Spoke with patient regarding EPCLUSA. A review of the medication therapy was performed. All medication related questions and concerns were addressed. The specialty pharmacy staff will follow up with thepatient 10 days prior to next refill. Is the patient willing to proceed with the Clinical Assessment? Yes Summary and Recommendations: Benjamín Henry was contacted for early follow-up on initiation of Hepatitis C treatment with Epclusa.He started taking it on 11/05/19. He has not missed any doses so far. He has taken 2 doses so far andreports that he got chest pain occurring approximately 1 to 2 hours after taking each dose of the Epclusa. After the first dose, the chest pain lasted for 5-10 minutes; after the second dose it lasted 10-20 minutes. He said he laid down and rested during these episodes and the chest pain went away. Hesaid it was a searing pain that could have also been heartburn. Prior to taking the Epclusa he hadbeen taking pantoprazole 40mg once daily, so it's possible that he's having heartburn symptoms from stopping the pantoprazole. I told him to go to the ED if he experienced the chest pain again just to be on the safe side. I explained that his symptoms are likely unrelated to the Epclusa. Shahram London had already mentioned that he would be willing to prescribe pantoprazole 20mg once daily if the patient felt he needed it. We went over again that if he decides to take pantoprazole, he needs to take theEpclusa with food and then take the 20mg of pantoprazole 4 hours after taking the Epclusa. He confirmed that he wrote the instructions down. I will refer to Shahram London for the pantoprazole 20mg prescri ption. He takes the 1 tablet of Epclusa with food at around 10 or 11am every day. He says he just remembersto take it but has not set up any reminders. He reports that he is staying well hydrated by drinkingmineral water. We will reach out to him again around day 18 of treatment for a refill reminder, lab reminder, and follow-up. Clinic Follow-up needed: yes - Patient has FUV with Shahram London on 12/11/19 Barriers to Adherence: no Adherence Tools Used by Patient: no Proper Hydration: Yes Side Effects: yes Patient reports chest pain / heartburn occurring ~1-2 hours after taking Epclusa and lasting for 5-20 minutes. Side Effect Mitigation Strategies Discussed: Yes Changes in other medications: no Interventions (if applicable): yes - Counseled patient on Epclusa side effects. Told patient to go to the ED if chest pain happens again. Discussed going back on Pantoprazole with appropriate dose and spacing from Epclusa. Notified prescriber of patient's symptoms. Any changes to the care plan? no Patient Satisfaction with Therapy: yes Patient understands no changes to current drug regimen were made at the appointment and that [facility] is providing recommendations (summary located at top of note) for provider review and follow up. Milli Thapa [facility] 11/07/19 10:44 AM documented in this encounter Plan of Treatment [...] Understanding Action Plan 12:42 PM [facility] EDT) Note: Formatting of this note might be d ifferent from the original. SVR12 through treatment with Epclusa x 2 4 weeks documented as of this encounter Visit Diagnoses Not on filedocumented in this encounter Care Teams Urban Planning Professor Relationship Specialty Start Date End Date Camron Suarez MD PCP - General Family Medicine 05/19/19 44 [facility] [address] [place] [phone] documented as of this encounter
--- OUTSIDE RECORDS SUMMARY | 2022-07-21 01:18 | XMS_ITS | Encounter Summary ---
:1955 Author Organization [facility] [place] [address] Care Team Providers Name Role Phone Camron Suarez MD Primary Care Provider Reason for Visit Reason Onset Date Comments Prior Authorization 01/13/2020 Epclusa Encounter Details Date Type Department Care Team Description 01/13/2020 Telephone Pharmacy at [facility] Ileana Gamez Prior Authorization [facility] ([facility] [place] [address] Social History Tobacco Use Types Packs/Day [...] this encounter Miscellaneous Notes Telephone Encounter - Ileana Gamez - 01/14/2020 11:11 AM EDT [facility], Prior Authorization Approval Medication Name: Epclusa FILLABLE AT [facility]? yes APPROVAL DATES: 01/13/20 - 05/14/20 SPECIFIC INS REQUIREMENT: CASE/REFERENCE # [id number] APPROVAL NOTIFICATION RECEIVED VIA: Fax COPAY: $3.00 COPAY ASSISTANCE NEEDED?: No NOTES: Telephone Encounter - Ileana Gamez - 01/13/2020 11:05 AM EDT [facility], Medication Prior Authorization Patient: Benjamín Henry Patient : 1955 Patient Address: [facility] [address] [facility] [address] (home) Medication: Epclusa Subscriber Insurance: [place] Medicaid Physician: Mehdi London Sent Via: [facility] Brown: [id number] Medication Strength Frequency Requested: Epclusa 400-100m tablet daily x24 weeks. Qty/Day Supply: 28/28 days New Start: No (PA requested for the additional 12 weeks) Diagnosis & ICD-10 Code: Chronic hepatitis C without hepatic coma, B18.2 documented in this encounter Plan of Treatment Scheduled Procedures Name Priority Associated Diagnoses Date/Time EGD, UPPER GI ENDOSCOPY Alcoholic cirrhosis, uns pecified whether ascites present Portal hypertension documented as of this encounter Goals Goal Patient Goal Associated Recent Patient-Stated? Author Type Problems Progress DH Home Medication Patient On track No Elier , Compliance and Facing (03/15/2020 Milli Carpenter, Understanding Action Plan 12:42 PM [facility] EDT) Note: Formatting of this note might be d ifferent from the original. SVR12 through treatment with Epclusa x 2 4 weeks documented as of this encounter Visit Diagnoses Not on filedocumented in this encounter Care Teams Metal Products Fabricator Assembler Relationship Specialty Start Date End Date Camron Suarez MD PCP - General Family Medicine 05/19/[address] [place] [phone] documented as of this encounter
--- OUTSIDE RECORDS SUMMARY | 2022-07-21 01:18 | XMS_ITS | Encounter Summary ---
:1955 Author Organization [facility] [place] [address] Care Team Providers Name Role Phone Camron Suarez MD Primary Care Provider Encounter Details Date Type Department Care Team Description 10/13/2019 Telephone [facility]ology at [facility] [place] [address] Social History Tobacco Use Types Packs/Day [...] this encounter Miscellaneous Notes Telephone Encounter - Sherrill Espinosa - 10/13/2019 1:32 PM EST Called pt to schedule November follow up with Mehdi London, with MRI/labs prior. Left VM. documented in this encounter Plan of Treatment Scheduled Procedures Name Priority Associated Diagnoses Date/Time EGD, UPPER GI ENDOSCOPY Alcoholic cirrhosis, uns pecified whether ascites present Portal hypertension documented as of this encounter Visit Diagnoses Not on filedocumented in this encounter Care Teams Fuel Distribution System Operator Relationship Specialty Start Date End Date Camron Suarez MD PCP - General Family Medicine 05/19/[address] [place] [phone] documented as of this encounter
--- OUTSIDE RECORDS SUMMARY | 2022-07-21 01:18 | XMS_ITS | Encounter Summary ---
:[address] [facility] [place] [address] Care Team Providers Name Role Phone Camron Suarez MD Primary Care Provider Encounter Details Date Type Department Care Team Description 02/27/2020 Telephone Gastroenterology at [facility] [place] Zoila Groves, [facility] [place] [address] Social History Tobacco Use Types Packs/Day [...] Milli Carpenter, Understanding Action Plan 12:42 PM [facility] EDT) Note: Formatting of this note might be d ifferent from the original. SVR12 through treatment with Epclusa x 2 4 weeks documented as of this encounter Visit Diagnoses Not on filedocumented in this encounter Care Teams Plunket Nurse Relationship Specialty Start Date End Date Camron Suarez MD PCP - General Family Medicine 05/19/19 44 [facility] [address] [place] [phone] documented as of this encounter
--- OUTSIDE RECORDS SUMMARY | 2022-07-21 01:18 | XMS_ITS | Encounter Summary ---
:1955 Author Organization [facility] [place] [address] Care Team Providers Name Role Phone Camron Suarez MD Primary Care Provider Reason for Visit Reason Onset Date Comments Reminder Appointment 02/26/2020 Encounter Details Date Type Department Care Team Description 02/26/2020 Telephone [place] [facility] [place] Trujillo, Reminder Appointment [facility] [place] [address] GASTROENTEROLOG [phone] Y DEPT Social History Tobacco Use Types Packs/Day Years [...] this encounter Miscellaneous Notes Telephone Encounter - Jackie Trujillo CMA - 02/26/2020 11:23 AM EDT Called patient to review medications and allergies for their upcoming gastroenterology Type of Appointment: Phone appointment. Reach Patient during MA Check: No, Did not leave a message Notes for the provider: Notes for the nurse: documented in this encounter Plan of Treatment Scheduled Procedures Name Priority Associated Diagnoses Date/Time EGD, UPPER GI ENDOSCOPY Alcoholic cirrhosis, uns pecified whether ascites present Portal hypertension documented as of this encounter Goals Goal Patient Goal Associated Recent Patient-Stated? Author Type Problems Progress DH Home Medication Patient On track No Elier , Compliance and Facing (03/15/2020 Milli Carpenter, Understanding Action Plan 12:42 PM [facility] EDT) Note: Formatting of this note might be d ifferent from the original. SVR12 through treatment with Epclusa x 2 4 weeks documented as of this encounter Visit Diagnoses Not on filedocumented in this encounter Care Teams Cad Draftsman Relationship Specialty Start Date End Date Camron Suarez MD PCP - General Family Medicine 05/19/19 44 [facility] [address] [place] [phone] documented as of this encounter
--- OUTSIDE RECORDS SUMMARY | 2022-07-21 01:18 | XMS_ITS | Encounter Summary ---
:1955 Author Organization [facility] [address] Care Team Providers Name Role Phone Camron Suarez MD Primary Care Provider Encounter Details Date Type Department Care Team Description 10/16/2019 Orders Only [place] [facility] [place] [facility] [place] [address] Social History Tobacco Use Types Packs/Day [...] on filedocumented in this encounter Care Teams Laboratory Mechanical Technician Relationship Specialty Start Date End Date Camron Suarez MD PCP - General Family Medicine 05/19/19 44 [facility] [address] [place] [phone] documented as of this encounter
--- OUTSIDE RECORDS SUMMARY | 2022-07-21 01:18 | XMS_ITS | Encounter Summary ---
:1955 Author Organization [facility] [place] [address] Care Team Providers Name Role Phone Camron Suarez MD Primary Care Provider Encounter Details Date Type Department Care Team Description 12/11/2019 Specialty Pharmacy Pharmacy at [facility] [place] [address] Social History Tobacco Use Types Packs/Day [...] on filedocumented in this encounter Care Teams Electronic Service Technician Relationship Specialty Start Date End Date Camron Suarez MD PCP - General Family Medicine 05/19/[address] [place] [phone] documented as of this encounter
--- OUTSIDE RECORDS SUMMARY | 2022-07-21 01:18 | XMS_ITS | Encounter Summary ---
:1955 Author Organization [facility] [place] [address] Care Team Providers Name Role Phone Camron Suarez MD Primary Care Provider Reason for Visit Diagnostic Test (Routine) - Closed Specialty Diagnoses / Procedures Referred By Contact Refer red To Contact Radiology Diagnoses Alcoholic cirrhosis of liver without ascites Jia Bledsoe MD [facility] Rad Mri Procedures MRI Abdomen wwo Contrast (Generic) [facility] [place] [address] [place] [address] Referral ID Status Reason Start Date Expiration Date Visits V isits Requested Authorized [id number] Closed Specialty 12/09/2019 03/08/2020 1 1 Service Requested Encounter Details Date Type Department Care Team Description 12/23/2019 Hospital Encounter MRI at [facility] Jia Bledsoe MD Canceled (P-[facility]) [facility] [address] [place] [phone] [place], [place] [phone] [facility] Social History Tobacco Use Types Packs/Day Years [...] fith of [place] daily last 019 drink --19; 3-4 non alcohol beers daily Sex Assigned at Date Recorded Not on file documented as of this encounter Medications at Time of Discharge Medication Sig Dispensed Refills Start Date End Date acetaminophen (TYLENOL) Take 1 tablet by 0 2018 500 mg Tablet mouth every 6 hours as needed for Pain or Fever (Not to exceed 2gm (4 pills) a day). triamterene-hydrochloro Take 1 capsule by 0 thiazide (DYAZIDE) mouth every 37.5-25 mg Capsule morning. pantoprazole EC Take 1 tablet by 90 tablet 3 11/07/2019 (Protonix) 20 mg mouth daily. Tablet, Delayed Release (E.C.)Indications: Gastroesophageal reflux disease, esophagitis presence not specified sofosbuvir-velpatasvir Take 1 tablet by 28 tablet 5 020 04/19/2020 (Epclusa) 400-100 mg mouth daily. TabletIndications: Chronic hepatitis C without hepatic coma propranolol (INDERAL) Take 1 tablet by 60 tablet 3 09/04/20 19 02/26/2020 20 mg mouth 2 times TabletIndications: daily. Portal hypertension bisacodyl (DULCOLAX) 10 Place 1 60 suppository 3 08/03/20 19 10/17/2020 mg Suppository suppository rectally daily as needed. polyethylene glycol Take 17 g by mouth 14 each 0 08/03/20 19 01/12/2020 (MIRALAX) 17 gram daily as needed. Powder in Packet ketoconazole (NIZORAL) 0 07/11/2019 2 % Cream Multivitamin Cmb Take 1 tablet by 0 No.21-Iron-FA 18-400 mouth Daily. mg-mcg Tablet CEROVITE SENIOR Tablet 0 05/15/2019 triamcinolone 0 07/02/2019 10/17/2020 (ARISTOCORT) 0.5 % Cream gabapentin (NEURONTIN) Take 1 capsule by 90 capsule 12 201810/17/2020 300 mg mouth 3 times CapsuleIndications: daily. Chronic arthralgias of knees and hips folic acid (FOLVITE) 1 Take 1 tablet by 90 tablet 3 019 10/17/2020 mg TabletIndications: mouth daily. Decompensated HCV cirrhosis ferrous sulfate 325 mg 0 05/15/2019 (65 mg iron) Tablet thiamine (THIAMINE) Take [...] on filedocumented in this encounter Care Teams Hospice Patient Care Secretary Relationship Specialty Start Date End Date Camron Suarez MD PCP - General Family Medicine 05/19/[address] [phone] documented as of this encounter
--- OUTSIDE RECORDS SUMMARY | 2022-07-21 01:18 | XMS_ITS | Encounter Summary ---
:1955 Author Organization [facility] [place] [address] Care Team Providers Name Role Phone Camron Suarez MD Primary Care Provider Encounter Details Date Type Department Care Team Description 03/02/2020 Telephone Gastroenterology at [facility] [place] Mehdi London PA [facility] [place] [address] [place] [address] [phone] (Wo rk) Social History Tobacco Use Types [...] Telephone Encounter - Mehdi London PA - 03/02/2020 4:47 PM EDT I left a voicemail for Mr. Henry (previously said was ok) to let him know about our discussion in LTCtoday. Prior treated lesion does seem to have no residual or recurrence, though there were 2 indeterminate lesions (LR-3) that were not noted in the MRI report. This report will be addended. Also let hi know that HCV RNA was undetected, which is great news. Should continue Epclusa as planned for full course. Letter sent with lab results. We are recommending a repeat MRI, labs, and clinic follow-up (in person) in 3 months. DG documented in this encounter Plan of [...] 12:42 PM [facility] EDT) Note: Formatting of this note might be d ifferent from the original. SVR12 through treatment with Epclusa x 2 4 weeks documented as of this encounter Visit Diagnoses Not on filedocumented in this encounter Care Teams Career Services Representative Relationship Specialty Start Date End Date Camron Suarez MD PCP - General Family Medicine 05/19/[address] [place] [phone] documented as of this encounter
--- OUTSIDE RECORDS SUMMARY | 2022-07-21 01:18 | XMS_ITS | Encounter Summary ---
:1955 Author Organization [facility] [place] [address] Care Team Providers Name Role Phone Camron Suarez MD Primary Care Provider Encounter Details Date Type Department Care Team Description 12/10/2019 Telephone G[place]ology at [facility] [place] Sherrill Espinosa [facility] [place] [address] Social History Tobacco Use Types Packs/Day [...] Notes Telephone Encounter - Sherrill Espinosa - 12/10/2019 1:55 PM EDT Pt called in to cancel his appts (MRI/Shahram Pemberton/labs) scheduled for tomorrow. He wanted me to let you know he has not yet had his labs for his medication levels done given the circumstances, but is going to try to get them done next week. documented in this encounter Plan of Treatment [...] on filedocumented in this encounter Care Teams Machine Precision Engraver Relationship Specialty Start Date End Date Camron Suarez MD PCP - General Family Medicine 05/19/[address] [place] [address] [address] [place] [phone] documented as of this encounter
--- OUTSIDE RECORDS SUMMARY | 2022-07-21 01:18 | XMS_ITS | Encounter Summary ---
:1955 Author Organization [facility] [place] [address] Care Team Providers Name Role Phone Camron Suarez MD Primary Care Provider Encounter Details Date Type Department Care Team Description 12/11/2019 Telephone Pharmacy at [facility] [place] [address] Social History Tobacco Use Types Packs/Day [...] this encounter Miscellaneous Notes Telephone Encounter - Milli Thapa [facility] - 12/11/2019 12:08 PM EDT Patient called to tell me that he didn't get 4 week labs done. He asked if it was ok that he would be late getting these done. I told him it was ok he's behind schedule on his labs. He is concerned about leaving his house because of coronavirus as he cares for his elderly mother with a heart condition. I told him that was understandable. I let him know that the lab orders were sent to [facility] and he could get them done whenever. He said he will probably go next week. He's doing well with the Epclusa and his only reported side effect is a mild headache towards the end of the day. He says that he is staying well hydrated. He has not missed any doses so far. I will follow up with him on 12/18 for his refill consult. Mynor Thapa, PharmRaheem 12/11/2019 12:14 PM documented in this encounter Plan of [...] Milli Carpenter Understanding Action Plan 12:42 PM [facility] EDT) Note: Formatting of this note might be d ifferent from the original. SVR12 through treatment with Epclusa x 2 4 weeks documented as of this encounter Visit Diagnoses Not on filedocumented in this encounter Care Teams Power And Recovery Supervisor Relationship Specialty Start Date End Date Camron Suarez MD PCP - General Family Medicine 05/19/19 44 [facility] [address] [place] [phone] documented as of this encounter
--- OUTSIDE RECORDS SUMMARY | 2022-07-21 01:18 | XMS_ITS | Encounter Summary ---
:1955 Author Organization [facility] [place] [address] Care Team Providers Name Role Phone Camron Suarez MD Primary Care Provider Reason for Visit Reason Comments Medication Management Patient Education Encounter Details Date Type Department Care Team Description 10/16/2019 Specialty Pharmacy Pharmacy [place] [facility] Milli Thapa Medication [facility] [employer] t; [place] [phone] Social History Tobacco Use Types Packs/Day Years [...] encounter Progress Notes Milli Thapa RPH - 10/16/2019 12:30 PM EST Specialty Pharmacy Consultation; Milli Thapa RPH Comprehensive Medication Management (CMM) Benjamín Roberto Purvis Diagnosis: HCV Therapy Start Date: TBD Contact in person or via telephone: telephone Mr. Benjamín Henry is a 64 y.o. (1955) male who was contacted in regard to specialty medication. Spoke with patient regarding Epclusa. A review of the medication therapy was performed. The medication was Filled as scheduled, and all medication related questions and concerns were addressed. The specialty pharmacy staff will follow up with the patient around day 3 of therapy to assess tolerability and adherence. Is the patient willing to proceed with the Clinical Assessment? Yes Summary and Recommendations: Benjamín Henry was contacted regarding approval of Hepatitis C treatment with Epclusa. We discussed the medication and treatment process in detail. He understands to take 1 tablet once daily with or without food, at the same time each day for a total of 24 weeks. The importance of adherence was stressed, and I recommended a phone alarm reminder to help with adherence. He is planning on taking the Epclusa in the morning with his other medications. Medications were reconciled and I do not see any interaction. He agreed to discontinue the pantoprazole (approved by Dr. Bledsoe and Shahram London) in order to avoid a drug interaction with Epclusa. He understands that all heartburn medications interact with Epclusa and he agreed to call me before he takesany new medications so that I can run an interaction check. He reported that he used to take a livercleanse supplement and I explained that he could not take it while he's taking the Epclusa and that it was probably a good idea not to take it even after he completes Epclusa treatment. He uses triamcinolone cream when he gets itchy legs, which I'm mentioning because itching is a rare side effect of Epclusa. Other complaints at baseline are fatigue, upset stomach (possibly due to anxiety), depression, and bone aches. This patient is very concerned about side effects. I explained that staying hydrated is the best wayto help prevent the most common Epclusa side effects. He reports that he drinks a lot of sparkling mineral water to stay hydrated. In addition to water, he also reports drinking 3 to 4 Efren's Hard Lemonades and 4 shots of Jagermeister every night. I encouraged him to continue his efforts towards sobriety in order to give his liver the best chance at recovery. We reviewed common side effects and mitigation strategies, as well as the lab schedule. He plans on getting 4 week labs done here at [facility] when he comes in for his FUV in November. An alternative lablocation that is closer to his home in [place], [place] [facility] We are filling the Epclusa and mailing it out to him. He was asked to notify us when he starts so we can follow-up accordingly. No recommendations at this time. Clinic Follow-up needed: yes - patient needs lab orders for his FUV in November Allergies and Drug intolerance: Allergies Allergen Reactions ??? Aspirin Other (See Comments) It makes me bleed. Special Dietary or Hydration Requirements: no There is no height or weight on file to calculate BMI. Medication Reconciliation Discrepancies (compared to [facility] med list) -Patient reports that the only medications he's taking are Pantoprazole, Folic acid, and Dyazide. Heagreed to discontinue the Pantoprazole (OK'd by Dr. Bledsoe and Shahram London) due to the drug interaction with Epclusa. He uses the triamcinolone and ketoconazole cream as needed for itchy legs. Medication Adherence Demonstrates understanding of importance of adherence: yes Informant: patient Reliability of informant: reliable Provider-estimated medication adherence level: 90-100% Reasons for non-adherence: no problems identified Adherence tools used: directed education Support network for adherence: healthcare provider Confirmed plan for next specialty medication refill: delivery by pharmacy Refills needed for supportive medications: not needed Medication List: Current Outpatient Medications Medication Sig Note Dispense Refill ??? sofosbuvir-velpatasvir (Epclusa) 400-100 mg Tablet Take 1 tablet by mouth daily. 28 tablet 5 ??? propranolol (INDERAL) 20 [...] 325 mg (65 mg iron) Tablet ??? triamterene-hydrochlorothiazide (DYAZIDE) 37.5-25 mg Capsule Take 2 capsules by mouth every morning. 10/16/2019: 75-50 mg ??? thiamine (THIAMINE) Take 1 tablet by mouth daily. (Patient not taking: Reported on 10/10/2019) 30tablet 3 ??? pantoprazole (PROTONIX) 40 mg Tablet, Delayed Release (E.C.) Take 1 tablet by mouth daily. 10/16/2019: Patient agreed to not take this during Epclusa treatment due to a drug interaction 90 tablet 3 No current facility-administered medications for this visit. Most Recent Vitals: Ht Readings from Last 1 Encounters: 10/10/19 181.6 cm (5' 11.5) Wt Readings from Last 3 Encounters: 10/10/19 96.4 kg (212 lb 8 oz) 09/04/19 95 kg (209 lb 6.4 oz) 08/02/19 88.9 kg (195 lb 15.8 oz) Temp Readings from Last 3 Encounters: [...] beneficiary Provider: plan sponsor pharmacist Visit Type: [facility] [place] Method of Contact: by telephone Cognitive Ability: good Cognitive Impairment Status Verified this Year: no Drug Interactions Provided the patient with educational material regarding drug interactions: yes Patient Counseling Counseled the patient on the following: reviewed medication changes since last visit, medication safety precautions education provided, drug interaction education provided to patient, doses and administration discussed, safe handling, storage, and disposal discussed, possible adverse effects and management discussed, possible drug and prescription drug interactions discussed, possible drug and OTC drug and food interactions discussed, lab monitoring and follow-up discussed, therapeutic rationale discussed, cost of medications and cost implications discussed, adherence and missed doses discussed, pharmacy contact information discussed, health goals discussed, monitoring medication discussed, over the counter products discussed, preventative care discussed, reminder to refill or pickle processor medication discussed, self-monitoring discussed, start medication discussed, timing of medications discussed, lifestyle modification education, referral needs discussed Drug Medication Management Summary Topics discussed: reviewed medication changes since last visit, medication safety precautions education provided, drug interaction education provided to patient, doses and administration discussed, safe handling, storage, and disposal discussed, possible adverse effects and management discussed, possible drug and prescription drug interactions discussed, possible drug and OTC drug and food interactions discussed, lab monitoring and follow-up discussed, therapeutic rationale discussed, cost of medications and cost implications discussed, adherence and missed doses discussed, pharmacy contact information discussed, health goals discussed, monitoring medication discussed, over the counter products discussed, preventative care discussed, reminder to refill or pickle processor medication discussed, self-monitoring discussed, start medication discussed, timing of medications discussed, lifestyle modification education, referral needs discussed Treatment Outcomes No data found in the last 10 encounters. Reviewed in detail with patient: Dose appropriateness [...] and mitigation strategies, and interruptions in therapy: yes Physical Assessment: Functional limitations identified: no Cognitive limitations identified: no Concern regarding orientation/memory: no Concern with reasoning/judgement: no Is patient a fall risk: no Other needed information: no Social Assessment: Does the patient have a primary care connector? no Patient has emergency contact on file: Yes Does patient need referral to certified social workers in health care: No Does patient need referral to advocacy group: No Physical and Home Health Assessment: Is the patient able to store their medication as directed? Yes Is the patient in a safe home environment? Yes Do you have a support network? Yes Reviewed potential home safety hazards: Yes Economic Assessment: Patient is agreeable to medication copay: Yes Copay Amount: $3.00 Day Supply: 28 Date Needed: carlie- new start Copay assistance required: no Therapy Assessment: Current Medication Dosing/Route/Frequency: Epclusa 1 tablet by mouth once daily x 24 weeks Appropriate Therapy: Yes Genotype: 3 Treatment Naive/Experienced: Naive Fibrosis Score: F4 (decompensated) HX of liver transplant: no HBV Coinfection: no HIV Coinfection: no Lab schedule reviewed: Yes Educational information or adherence tools provided? Yes HCV therapy adherence: Yes HCV treatment response: Yes Verbalized understanding to call office before start: Yes Patient experienced change in condition that affects treatment: no Patient's Problems/Needs: Treatment of HepC- adherence to medication regimen and lab monitoring schedule Patient's goals: Patient's specific desired goal: SVR12 Measured by: HepC viral load 12 weeks post-treatment Time-frame to meet goal: 12 weeks post-treatment Expected Outcome: SVR12 Plan of Care Reviewed and Approved by Pharmacist and Patient: Yes Monitoring requirements for prescribed medication: Monitor efficacy, safety, tolerability Monitor CBC, CMP, HepC viral load week 4, end of treatment, 3 and 6 months post-treatment Interventions (if applicable): No Additional care/services needed: no Pharmacist Follow-up needed: Yes Informed patient of specialty pharmacy services: Yes -Patient will be provided with welcome packet: Yes Date to be provided: 10/16/19 Delivery Method: mail -Patient will be provided with Rights & Responsibilities: Yes Date to be provided: 10/16/19 Delivery Method: mail -Patient is aware a licensed pharmacist is available 24 hours a day, 7 days a week to discuss medication-related questions or concerns: Yes -Patient verbalizes understanding of the common side effect profile of their medication. The patientis able to call 911 or seek urgent care if signs/symptoms of allergy or harmful adverse reactions occur: Yes Patient Satisfaction with Therapy: yes Patient understands no changes to current drug regimen were made at the appointment and that [facility] is providing recommendations (summary located at top of note) for provider review and follow up. Milli Thapa RPH 10/16/19 12:37 PM documented in this encounter Plan of [...] Milli Carpenter, Understanding Action Plan 12:42 PM [facility] EDT) Note: Formatting of this note might be d ifferent from the original. SVR12 through treatment with Epclusa x 2 4 weeks documented as of this encounter Visit Diagnoses Not on filedocumented in this encounter Care Teams Senior Medical Technologist Relationship Specialty Start Date End Date Camron Suarez MD PCP - General Family Medicine 05/19/[address] [place] [phone] documented as of this encounter
--- OUTSIDE RECORDS SUMMARY | 2022-07-21 01:18 | XMS_ITS | Encounter Summary ---
:1955 Author Organization [facility] [place] [address] Care Team Providers Name Role Phone Camron Suarez MD Primary Care Provider Encounter Details Date Type Department Care Team Description 12/23/2019 External Results Gastroenterology at [facility] Mehdi London, [facility] [place] [address] [facility] [phone] [place], [place] [address] Social History Tobacco Use Types [...] Milli Carpenter, Understanding Action Plan 12:42 PM [facility] EDT) Note: Formatting of this note might be d ifferent from the original. SVR12 through treatment with Epclusa x 2 4 weeks documented as of this encounter Procedures Procedure Name Priority Date/Time Associated Diagnosis Comme nts EXTERNAL LAB CBC CMP Routine 12/23/2019 Results for this THYROID RESULTS PANEL proced ure are in the results section . documented in this encounter Results CBC / CMP / Thyroid External Results (12/23/2019) P athologist Signature WBC 3.42 RBC 4.94 Hemoglobin 10.5 Hematocrit 35.3 MCV 71.5 Platelets 122 Sodium 136 Potassium 3.3 Chloride 101 CO2 25 BUN 9 Creatinine 0.83 Estimated GFR >60 Glucose Lvl 114 Calcium 8.1 Total Protein 7.9 Albumin 3.1 Total Bilirubin 1.0 Alk Phos 101 AST 54 ALT 36 PT 13.0 INR 1.30 Historical Provider POINT OF CARE TEST ORDERABLE S documented in this encounter Visit Diagnoses Not on filedocumented in this encounter Care Teams Ballet Soloist Relationship Specialty Start Date End Date Camron Suarez MD PCP - General Family Medicine 05/19/19 [address] [facility] [address] [place] [phone] documented as of this encounter
--- OUTSIDE RECORDS SUMMARY | 2022-07-21 01:18 | XMS_ITS | Encounter Summary ---
:1955 Author Organization [facility] [address] Care Team Providers Name Role Phone Camron Suarez MD Primary Care Provider Encounter Details Date Type Department Care Team Description 11/07/2019 Orders Only Gastroenterology at [facility] Mehdi London Gastroesophageal reflux [facility]CO Lucas disease, [place] [address] One Medical presence not specified [phone] [place] [address] Social History Tobacco Use Types Packs/Day Years [...] Milli Carpenter, Understanding Action Plan 12:42 PM [facility] EDT) Note: Formatting of this note might be d ifferent from the original. SVR12 through treatment with Epclusa x 2 4 weeks documented as of this encounter Visit Diagnoses Diagnosis Gastroesophageal reflux disease, esophag itis presence not specified documented in this encounter Care Teams Net Sorter Relationship Specialty Start Date End Date Camron Suarez MD PCP - General Family Medicine 05/19/[address] [place] [phone] documented as of this encounter
--- OUTSIDE RECORDS SUMMARY | 2022-07-21 01:18 | XMS_ITS | Encounter Summary ---
:1955 Author Organization [place] [address] Care Team Providers Name Role Phone Camron Suarez MD Primary Care Provider Encounter Details Date Type Department Care Team Description 01/08/2020 Telephone Gastroenterology at [facility] [place] [address] Social History Tobacco Use Types Packs/Day [...] Notes Telephone Encounter - Sherrill Espinosa - 01/08/2020 1:04 PM EDT Called pt and left VM to schedule a telehealth follow up with Mehdi London. Requested a call back. documented in this encounter Plan of Treatment [...] on filedocumented in this encounter Care Teams Fire Battalion Chief Relationship Specialty Start Date End Date Camron Suarez MD PCP - General Family Medicine 05/19/19 [address] [facility] [address] [place] [phone] documented as of this encounter
--- OUTSIDE RECORDS SUMMARY | 2022-07-21 01:18 | XMS_ITS | Encounter Summary ---
:1955 Author Organization [facility] [place] [address] Care Team Providers Name Role Phone Camron Suarez MD Primary Care Provider Encounter Details Date Type Department Care Team Description 11/04/2019 Telephone Pharmacy at [facility] [place] [address] Social History Tobacco Use Types Packs/Day [...] Miscellaneous Notes Telephone Encounter - Milli Thapa [facility] - 11/04/2019 12:15 PM EST Ed called to let me know that he picked up the Epclusa from his [address] but he hasn't started it yet.He was feeling a little off the past couple of days so he wanted to wait until he was feeling better to start. He has a dentist appointment today and was worried about an interaction between Novocainand Epclusa, but I assured him there was no interaction because Novocain only works locally. He is planning on starting the Epclusa tomorrow (11/05/19). He said he's been coughing more since stopping the pantoprazole and mentioned that he might want to go back on it. He denies heartburn symptoms. He also thinks the coughing could be due to stress. I told him it was best to avoid the pantoprazole as kelly nned. I told him he couldn't take his pantoprazole 40mg because the max he could possibly take (withappropriate spacing) with Epclusa is 20mg and he would need a new prescription. He said he won't take the pantoprazole. I gave him instructions for spacing the pantoprazole from the Epclusa (take the Epclusa with food and then take pantoprazole 20mg 4 hours later) just in case he decides to take it atsome point despite my telling him not to. I will follow up with him in a few days to confirm his start date and to see how he's tolerating the Epclusa. Mynor Thapa, PharmD 11/04/2019 12:31 PM documented in this encounter Plan of [...] Milli Carpenter Understanding Action Plan 12:42 PM [facility] EDT) Note: Formatting of this note might be d ifferent from the original. SVR12 through treatment with Epclusa x 2 4 weeks documented as of this encounter Visit Diagnoses Not on filedocumented in this encounter Care Teams Senior Net C Developer Relationship Specialty Start Date End Date Camron Suarez MD PCP - General Family Medicine 05/19/[address] [facility] [address] [place] [phone] documented as of this encounter
--- OUTSIDE RECORDS SUMMARY | 2022-07-21 01:18 | XMS_ITS | Encounter Summary ---
:1955 Author Organization [place] [address] Care Team Providers Name Role Phone Camron Suarez MD Primary Care Provider Reason for Visit Reason Onset Date Comments Reminder Appointment 01/12/2020 Encounter Details Date Type Department Care Team Description 01/12/2020 Telephone Gastroenterology at [facility] Jackie Trujillo, Reminder Appointment [facility] [place] [phone] GASTROENTEROLOG [phone] Y DEPT Social History Tobacco Use Types [...] Telephone Encounter - Jackie Trujillo CMA - 01/12/2020 9:46 AM EDT Called patient to review medications and allergies for their upcoming gastroenterology Type of Appointment: Phone appointment. Reach Patient during MA Check: Yes Notes for the provider: The patient is running out of minutes on his phone and would like for you tocall him on [phone]. Notes for the nurse: documented in this [...] Understanding Action Plan 12:42 PM [facility] EDT) Note: Formatting of this note might be d ifferent from the original. SVR12 through treatment with Epclusa x 2 4 weeks documented as of this encounter Visit Diagnoses Not on filedocumented in this encounter Care Teams Class C Truck Driver Relationship Specialty Start Date End Date Camron Suarez MD PCP - General Family Medicine 05/19/[address] [place] [phone] documented as of this encounter
--- OUTSIDE RECORDS SUMMARY | 2022-07-21 01:18 | XMS_ITS | Encounter Summary ---
:1955 Author Organization [facility] [place] [address] Care Team Providers Name Role Phone Camron Suarez MD Primary Care Provider Reason for Referral Consultation (Routine) - Closed Specialty Diagnoses / Procedures Referred By Contact Refer red To Contact Gastroenterology Diagnoses Decompensated hepatic cirrhosis Portal hypertension Mehdi London PA [facility] Endoscopy [address] [facility] [place] [address] [place] [address] Phone: Referral ID Status Reason Start Date Expiration Date Visits V isits Requested Authorized [id number] Closed Consult, 01/12/2020 01/11/2021 1 1 Test & Treat Encounter Details Date Type Department Care Team Description 01/12/2020 TH Visit [place] [facility] [place]di London Decompensated hepatic cirrho sis (Primary Dx); (TeleHealth) [facility] HCC (hepatocellular carcinoma); [place] [address] [facility] Portal hypertension; [phone] Center Iron deficiency anemia, unspecified [place] [address] Social History Tobacco Use Types Packs/Day Years [...] encounter Progress Notes Mehdi London PA - 01/12/2020 12:00 PM EDT Images from the original note were not included. HEPATOLOGY FOLLOW-UP TELEPHONE VISIT Patient: Benjamín Henry Sex: male Date of : 1955 PCP: Camron Suarez MD 01/12/20 LIVER HISTORY Decompensated cirrhosis due to HCV and alcoholism -Presented to [facility] March 2019 with acute upper GI bleed [...] 12/23/19 (approx 7 weeks): HCV RNA undetected ?? Hepatocellular carcinoma -Noted left lobe buldging on non-contrast CT at [facility] March 2019 -Not noted on RUQ ultrasound in hospital -MRI 07/14/19: 55 mm mass in segment 2, read as LI-RADS 5 lesion -Normal AFP 5.6 06/24/19 -CA 19-9 37.0 on 07/14/19 -Underwent bland embolization on 07/31/19 (not biopsied) -CT 09/04/19: left lobe lesion (lesion 1) LR-TR nonviable, segment 7/8 lesion (lesion 2) LR-3 -Last AFP 5.8 on 12/23/19 -Last MELD-Na = 12 on 12/23/19 ?? 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 male with a history of hepatocellular carcinoma and decompensated cirrhosis related to HCV and alcoholism. He started a 24-week course of Epclusa on 11/05/19 and recent labs on 12/22 showed an undetected viral load. He was previously scheduled for an office visit with me and MRI last month, but he cancelled due to the COVID-19 pandemic. We rescheduled a phone call visit for today as a check-in. We last met on 10/10. Patient verbally consents to this telephone visit and understands that this visit may be billed, similar to a clinic office visit. He is feeling okay lately with no new medical problems. He is tolerating the Epclusa well and has not missed any doses. He is currently staying with his mother but is traveling back and forth to his property in [place] trying to clean up and sell. He is struggling with income and currently has lessthan $70 in his bank account. He states he is not taking the pantoprazole while on Epclusa as was previously directed. He also notes he is not taking propranolol, gabapentin, iron, or any stool softeners at the moment. He believes the iron causes constipation. He is still concerned about potential side effects of the propranolol and he feels he has not needed the gabapentin. He would be okay with another EGD to follow-up his varices rather than starting the propranolol. He is willing to restart the ferrous sulfate however. He has been active in his methodist during this time and has gone a few times. REVIEW OF SYSTEMS As in the HPI, the rest of the review of systems were negative. MEDICATIONS Current Outpatient Medications Medication Sig Dispense Refill ??? ferrous sulfate 325 mg (65 mg iron) Tablet Take 1 tablet by mouth 2 times daily. 60 tablet 11 ??? sofosbuvir-velpatasvir (Epclusa) 400-100 [...] 2 capsules by mouth every morning. ??? thiamine (THIAMINE) Take 1 tablet by mouth daily. (Patient not taking: Reported on 10/10/2019) 30tablet 3 No current facility-administered medications for this visit. ALLERGIES Allergies Allergen Reactions ??? Aspirin Other (See Comments) It makes me bleed. PHYSICAL EXAM There were no vitals filed for this visit. There is no height or weight on file to calculate BMI. Not performed RESULTS No results found for this or any previous visit (from the past 24 hour(s)). Non-DH Laboratory: 12/23/19 @ [facility]: MELD-Na = 12 MELD = 9 Imaging: No abdominal imaging since CT chest/abdomen 09/04/19 (reviewed) ASSESSMENT/PLAN Benjamín Henry is a 64 y.o. male with hepatocellular carcinoma, s/p IR bland embolization of a 55 mm LR-5 lesion in the left hepatic lobe, and decompensated hepatic cirrhosis secondary to chronic alcohol abuse and hepatitis C infection, genotype 3. ??He started a planned 24-week course of SOF/DANIELA on 11/05/19 and had an undetected viral load on 12/22. We reviewed the remainder of his labs from 12/22 which showed relatively improved liver function and overall MELD-Na of 12. AFP continues to be within normal limits. I explained to him that I do still want him to have his abdominal MRI that was previously scheduled for last month to follow-up his HCC. He understands the importance of this and is willing to schedule now. In regard to portal hypertension management, he continues to decline starting propranolol (or other nonselective beta-barbara) for risk of potential side effects. In brief discussion with Dr. Bledsoe, we can consider EGD in 3 months forsurveillance. He does have the propranolol at home however and would like this to stay on his medication list if he decides to start it. Plan: -Arrange MRI next available and discuss in liver tumor conference following. -Continue Epclusa daily as directed. Follow-up via phone with Specialty Pharmacy. -Reordered ferrous sulfate 325 mg to be taken twice daily. -Recommend increasing dietary fiber and/or prune juice while taking iron. -Arrange EGD with [facility] for 3 months (March). -Advised to continue on his vitamins. -Continue efforts to cut down alcohol use as much as possible. -Hepatology clinic follow-up TBD based on MRI result, likely 3 months I provided care to the patient today via telephone call; 35 minutes of this telephone visit was spent in discussion with patient on above. BETY MartinC Section of Gastroenterology and Hepatology [address] [address] Copy: Camron Suarez MD No ref. provider found documented in this encounter Plan of Treatment Scheduled Procedures Name Priority Associated Diagnoses Date/Time EGD, UPPER GI ENDOSCOPY Alcoholic cirrhosis, uns pecified whether ascites present Portal hypertension Scheduled Referrals Name Type Priority Associated Diagnoses Order S chedule Referral to Outpatient Routine Decompensated Ordered: Gastroenterology Referral hepatic cirrhos is 01/12/2020 Portal hypertension documented as of this encounter [...] as of this encounter Visit Diagnoses Diagnosis Decompensated hepatic cirrhosis - Primar y HCC (hepatocellular carcinoma) Malignant neoplasm of liver, primary Portal hypertension Iron deficiency anemia, unspecified iron deficiency anemia type documented in this encounter Care Teams Logistics Administrator Relationship Specialty Start Date End Date Camron Suarez MD PCP - General Family Medicine 05/19/[address] [place] [phone] documented as of this encounter
--- OUTSIDE RECORDS SUMMARY | 2022-07-21 01:18 | XMS_ITS | Encounter Summary ---
:1955 Author Organization [facility] [place] [address] Care Team Providers Name Role Phone Camron Suarez MD Primary Care Provider Reason for Referral Diagnostic Test (Routine) - Closed Specialty Diagnoses / Procedures Referred By Contact Refer red To Contact Radiology Diagnoses Alcoholic cirrhosis of liver without ascites Jia Bledsoe MD [facility] Rad Mri Procedures MRI Abdomen wwo Contrast (Generic) [facility] [place] [address] [place] [address] Referral ID Status Reason Start Date Expiration Date Visits V isits Requested Authorized [id number] Closed Specialty 12/09/2019 03/08/2020 1 1 Service Requested Reason for Visit Diagnostic Test (Routine) - Closed Specialty Diagnoses / Procedures Referred By Contact Refer red To Contact Radiology Diagnoses Alcoholic cirrhosis of liver without ascites iJa Bledsoe MD [facility] Rad Mri Procedures MRI Abdomen wwo Contrast (Generic) [facility] [place] [address] [place] [address] Referral ID Status Reason Start Date Expiration Date Visits V isits Requested Authorized [id number] Closed Specialty 12/09/2019 03/08/2020 1 1 Service Requested Encounter Details Date Type Department Care Team Description 02/24/2020 Hospital Encounter [place] [facility] [place]ia Bledsoe MD Alcoholic cirrhosis [facility] [address] [place]OLOG[place] [address] [place], [place] [phone] [address] Social History Tobacco Use Types Packs/Day Years [...] Carpenter, Understanding Action Plan 12:42 PM [facility] EDT) Note: Formatting of this note might be d ifferent from the original. SVR12 through treatment with Epclusa x 2 4 weeks documented as of this encounter Procedures Procedure Name Priority Date/Time Associated Diagnosis Comme nts MRI ABDOMEN WWO Routine 02/24/2020 2:36 PM Alcoholic cirrhosis Results for this CONTRAST EDT of liver without procedure a re in ascites the results section. documented in this encounter Results MRI Abdomen wwo Contrast (Generic) (02/24/2020 2:36 PM EDT) Anatomical Region Laterality Modality Abdomen Magnetic Resonance Specimen (Source) Anatomical Location Collection Method / Collectio n Time Received Time / Laterality Volume Impressions 02/24/2020 3:53 PM EDT The previously noted LEFT hepatic lobe mass has decreased in size and is nonenhancing, measuring. No other suspic ious or enhancing hepatic lesions are noted. Thank you for letting us participate in the care of this patient. For questions regarding this report, please contact e number below. ? Narrative 02/24/2020 3:53 PM EDT EXAMINATION: MRI ABDOMEN WWO CONTRAST (GENERIC) CLINICAL HISTORY: Portal hypertension. L EFT hepatic lobe mass, as noted previously TECHNIQUE: MRI of the abdomen was perfor med with images obtained prior to and following the intravenous administration of 20ml Dotarem. COMPARISON: 07/14/2019 FINDINGS: Lower chest: Normal. Liver: The previously noted LEFT hepatic lobe mass has decreased in size and is nonenhancing, measuring 3.5 cm. No other suspicious or enhancing hepatic masses are noted. Multiple nonenhancing varied sized small low signal lesions are noted on the T1 postcontrast images. Nodular c ontour of liver, compatible cirrhotic change. The hepatic vessels are widely p atent. Bile ducts: Nondilated. Gallbladder: Cholelithiasis. No gallblad anamaria wall thickening. Pancreas: Normal. Spleen: Normal. Adrenals: Normal. Kidneys: Stable RIGHT renal simple cyst Vasculature: No aneurysm. Lymph nodes: No enlarged lymph nodes. Bowel: Nondilated, no inflammatory ellsworth es. Peritoneum and mesentery: No ascites or loculated fluid collection. Marrow Signal: Normal. Procedure Note Josh Holt MD - 02/24/2020Form atting of this note might be different from the original. EXAMINATION: MRI ABDOMEN WWO CONTRAST (G ENERIC) CLINICAL HISTORY: Portal hypertension. L EFT hepatic lobe mass, as noted previously TECHNIQUE: MRI of the abdomen was perfor med with images obtained prior to and following the intravenous administration of 20ml Dotarem. COMPARISON: 07/14/2019 FINDINGS: Lower chest: Normal. Liver: The previously noted LEFT hepatic lobe mass has decreased in size and is nonenhancing, measuring 3.5 cm. No other suspicious or enhancing hepatic masses are noted. Multiple nonenhancing varied sized small low signal lesions are noted on the T1 postcontrast images. Nodular c ontour of liver, compatible cirrhotic change. The hepatic vessels are widely p atent. Bile ducts: Nondilated. Gallbladder: Cholelithiasis. No gallblad anamaria wall thickening. Pancreas: Normal. Spleen: Normal. Adrenals: Normal. Kidneys: Stable RIGHT renal simple cyst Vasculature: No aneurysm. Lymph nodes: No enlarged lymph nodes. Bowel: Nondilated, no inflammatory ellsworth es. Peritoneum and mesentery: No ascites or loculated fluid collection. Marrow Signal: Normal. IMPRESSION The previously noted LEFT hepatic lobe m ass has decreased in size and is nonenhancing, measuring. No other suspic ious or enhancing hepatic lesions are noted. Thank you for letting us participate in the care of this patient. For questions regarding this report, please contact e number below. Jia Bledsoe MD IMG MRI ORDERABLES documented in this encounter Visit Diagnoses Diagnosis Alcoholic cirrhosis of liver without asc ites Alcoholic cirrhosis of liver documented in this encounter Administered Medications Inactive Administered Medications - up to 3 most recent administrations Medication Order MAR Action Action Date Dose Rate Site gadoterate meglumine (DOTAREM) 0.5 Given 02/24/2020 2:17 PM EDT 20 mLs mmol/mL (376.9 mg/mL) injection 0.2 mL/kg/dose 0.2 mL/kg/dose, Intravenous, ONCE PRN, 1 dose, Starting on 02/24/20 at 1422, Until 02/24/20 at 1417, Per Protocol, Radiology Contrast, Routine documented in this encounter Care Teams Spring Repairer Helper Hand Relationship Specialty Start Date End Date Camron Suarez MD PCP - General Family Medicine 05/19/[address] [address] documented as of this encounter
--- OUTSIDE RECORDS SUMMARY | 2022-07-21 01:18 | XMS_ITS | Encounter Summary ---
:1955 Author Organization [facility] [place] [address] Care Team Providers Name Role Phone Camron Suarez MD Primary Care Provider Reason for Referral Diagnostic Test (Routine) - Closed Specialty Diagnoses / Procedures Referred By Contact Refer red To Contact Radiology Diagnoses Alcoholic cirrhosis of liver without ascites Jia Bledsoe MD [facility] Rad Mri Procedures MRI Abdomen wwo Contrast (Generic) [facility] [place] [address] [place] [id number] Referral ID Status Reason Start Date Expiration Date Visits V isits Requested Authorized [id number] Closed Specialty 12/09/2019 03/08/2020 1 1 Service Requested Encounter Details Date Type Department Care Team Description 09/09/2019 Orders Only Gastroenterology at [facility] Jia Bledsoe MD Alcoholic cirrhosis [facility] [place] [address] alex [phone] [place] [id number] Social History Tobacco Use Types Packs/Day Years Used Date Former Smoker Cigarettes, Pipe 0.5 13 Quit: 2000 Smokeless Tobacco: Never Used Alcohol Use Standard Drinks/Week Comments Yes 0 (1 standard drink = 0.6 oz pure half a fith of wiskey daily last alcohol) drink -27-19; 3-4 n on alcohol beers daily Alcohol [...] Portal hypertension documented as of this encounter Results MRI Abdomen wwo Contrast [...] report, please contact th e number below. Jia Bledsoe MD IMG MRI ORDERABLES documented in this encounter Visit Diagnoses Diagnosis Alcoholic cirrhosis of liver without asc ites Alcoholic cirrhosis of liver Alcoholic cirrhosis of liver without asc ites Alcoholic cirrhosis of liver documented in this encounter Care Teams Construction Administrator Relationship Specialty Start Date End Date Camron Suarez MD PCP - General Family Medicine 05/19/[address] [facility] [address] [place] [address] documented as of this encounter
--- OUTSIDE RECORDS SUMMARY | 2022-07-21 01:18 | XMS_ITS | Encounter Summary ---
:1955 Author Organization [facility] [place] [address] Care Team Providers Name Role Phone Camron Suarez MD Primary Care Provider Reason for Visit Reason Onset Date Comments Prior Authorization 10/13/2019 Epclusa Encounter Details Date Type Department Care Team Description 10/13/2019 Telephone Pharmacy [place] [facility] Ileana Gamez Prior Authorization [facility] [place] [address] Social History Tobacco Use Types Packs/Day [...] Notes Telephone Encounter - Ileana Gamez - 10/15/2019 9:04 AM EST [facility], Prior Authorization Approval Medication Name: Epclusa FILLABLE AT [facility]? yes APPROVAL DATES: 10/13/19 - 01/12/20 SPECIFIC INS REQUIREMENT: Insurance prefers brand name CASE/REFERENCE # [id number] APPROVAL NOTIFICATION RECEIVED VIA: Phone call COPAY: $3.00 COPAY ASSISTANCE NEEDED?: No NOTES: PA approved for 12 weeks. PA will need to be resubmitted before the end of the 3rd month thatdocuments compliance and viral load changed for continuation. Telephone Encounter - Ileana Gamez - 10/13/2019 4:25 PM EST [facility], Medication Prior Authorization Patient: Benjamín Henry Patient : 1955 Patient Address: [facility] [address] [facility] [address] (home) Medication: Sofosbuvir-Velpatasvir Subscriber Insurance: [place] Medicaid Physician: Mehdi London Sent Via: Fax Medication Strength Frequency Requested: Epclusa 400-100m tablet daily Qty/Day Supply: days New Start: Yes Diagnosis & ICD-10 Code: Chronic hepatitis C without hepatic coma, B18.2 documented in this encounter Plan of Treatment Scheduled Procedures Name Priority Associated Diagnoses Date/Time EGD, UPPER GI ENDOSCOPY Alcoholic cirrhosis, uns pecified whether ascites present Portal hypertension documented as of this encounter Visit Diagnoses Not on filedocumented in this encounter Care Teams Garage Door Opener Installer Relationship Specialty Start Date End Date Camron Suarez MD PCP - General Family Medicine 05/19/19 44 [facility] [address] [place] [address] documented as of this encounter
--- OUTSIDE RECORDS SUMMARY | 2022-07-21 01:18 | XMS_ITS | Encounter Summary ---
:1955 Author Organization [facility] [place] [address] Care Team Providers Name Role Phone aCmron Suarez MD Primary Care Provider Reason for Referral Diagnostic Test (Routine) - Closed Specialty Diagnoses / Procedures Referred By Contact Refer red To Contact Radiology Diagnoses HCC (hepatocellular carcinoma) Mehdi London PA [facility] Rad Mri Procedures MRI Abdomen wwo Contrast (Generic) [facility] [place] [address] [place] [address] Referral ID Status Reason Start Date Expiration Date Visits V isits Requested Authorized [id number] Closed Specialty 03/03/2020 09/02/2021 1 1 Service Requested Encounter Details Date Type Department Care Team Description 03/03/2020 Orders Only Gastroenterology at [facility] Mehdi London HCC (hepatocellular [facility] CHECO Lucas carcinoma) [place] [address] [facility] [phone] [place] [address] Social History Tobacco Use Types Packs/Day Years Used Date Former Smoker Cigarettes, Pipe 0.5 13 Quit: 2000 Smokeless Tobacco: Never Used Alcohol Use Standard Drinks/Week Comments Yes 0 (1 standard drink = 0.6 oz pure half a fith of wiskey daily last alcohol) drink --19; 3-4 n on alcohol beers daily Alcohol [...] one occasion? Comment: half a fith of kassandra daily last 019 drink 7-27-19; 3-4 non [...] Milli Carpenter, Understanding Action Plan 12:42 PM [facility] EDT) Note: Formatting of this note might be d ifferent from the original. SVR12 through treatment with Epclusa x 2 4 weeks documented as of this encounter Results (ABNORMAL) Prothrombin Time (10/15/2020 2:48 PM EST) athologist Signature PT 14.4 (H) 9.4 - 12.5 [facility] LABORATORY INR 1.3 [facility] LABORATORY Comment: An INR <2.0 indicates [...] Organization Address City/State/[place] [address] AFP tumor marker (10/15/2020 2:48 PM EST) athologist Signature AFP 5.4 <=8.3 ng/mL [facility] LABORATORY Specimen Anatomical Collection Method Collection Time Receive d Time (Source) Location / / Volume Laterality Blood specimen 10/15/2020 2:48 PM 021 2:59 (specimen) EST PM EST Resulting Agency Comment Spec In Lab Jia Bledsoe MD CHEMISTRY ORDERABLES Performing Organization Address City/State/[place] [address] (ABNORMAL) Comprehensive metabolic panel (non-fasting) (10/15/2020 2:48 PM EST) P athologist Signature Glucose Lvl 90 65 - 199 [facility] mg/dL [facility]ORATORY Comment: Diabetes: >=200 mg/dL plus symp toms BUN 9 (L) 10 - 20 mg/dL [facility] LABORATORY Creatinine 0.69 (L) 0.80 - 1.50 mg/dL [facility]ORATORY Sodium 135 135 - 145 mmol/L [facility] LABORATORY Potassium 4.0 3.5 - 5.0 mmol/L [facility]ORATORY Comment: Please note: ??Patients with WBC >100,00 0 may have falsely elevated Potassium levels. ??For accurate Potassium quantif ication in these patients send serum separator tube (gold top) for subsequent determinations. ??Contact the Clinical Chemistry Laboratory if there are any qu estions. Chloride 102 98 - 107 mmol/L [facility] CO2 22 22 - 31 mmol/L [facility] Anion Gap 11 5 - 15 mmol/L [facility] Calcium 9.0 8.5 - 10.5 mg/dL [facility] Total Protein 8.1 (H) 6.1 - 8.0 gm/dL [facility] Albumin 4.2 3.2 - 5.2 gm/dL [facility] AST 62 (H) 0 - 39 unit/L [facility]OR[facility] ALT 37 0 - 55 unit/L [facility] Alk Phos 98 40 - 130 unit/L [facility] Total Bilirubin 1.5 (H) 0.2 - 1.3 mg/dL [facility] LABORATORY Estimated GFR 100 >=60 mL/min/1.73 m?? [facility] Comment: This patient? s estimated [...] Organization Address City/State/[place] [address] MRI Abdomen wwo Contrast (Generic) (10/15/2020 2:10 [...] documentation are a vailable online at https://www.acr.org/Clinical-Resources/R xszgqhfa-bxz-Gcjg-Systems/LI-RADS. This report utilizes LI-RADS version 2018. I have personally reviewed the image(s) and the resident's interpretation and agree with the findings, Josh leone MD at 10/15/2020 4:35 PM Thank you for letting us participate in the care of this patient. For questions regarding this report, please contact e number below. ? Electronically signed by: Josh horvath MD, [facility] ([phone]), at 10/15/2020 4:35 PM Narrative 10/15/2020 4:35 [...] at risk for hepatocellular carcinoma. The [facility] criteria for definite hepatocellular carcinoma are concordant for the LI-RADS and OPTN systems. LI-RADS criteria and documentation are a vailable online at https://www.acr.org/Clinical-Resources/R wxmzulmv-zkt-Vxzn-Systems/LI-RADS. This report utilizes LI-RADS version 2018. I have personally reviewed the image(s) and the resident's interpretation and agree with the findings, Josh leone MD at 10/15/2020 4:35 PM Thank you for letting us participate in the care of this patient. For questions regarding this report, please contact th e number below. Electronically signed by: Josh horvath MD, [facility] ([phone]), at 10/15/2020 4:35 PM Jia Bledsoe MD IMG MRI ORDERABLES documented in this encounter Visit Diagnoses Diagnosis HCC (hepatocellular carcinoma) Malignant neoplasm of liver, primary HCC (hepatocellular carcinoma) Malignant neoplasm of liver, primary documented in this encounter Care Teams Substitute School Nurse Relationship Specialty Start Date End Date Camron Suarez MD PCP - General Family Medicine 05/19/[address] [phone] documented as of this encounter
--- OUTSIDE RECORDS SUMMARY | 2022-07-21 01:18 | XMS_ITS | Encounter Summary ---
:1955 Author Organization [facility] [place] [address] Care Team Providers Name Role Phone Camron Suarez MD Primary Care Provider Encounter Details Date Type Department Care Team Description 03/03/2020 Multidisciplinary Care Gastroenterology at 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 HCC Tumor Treatment History: ?? [place] Embo 07/31/19 -Imaging: Initial: 07/14/2019 MRI abdomen IMPRESSION 1. ??Large mass in the anterior left hepatic lobe, LR-5 (definitely hepatocellular carcinoma). 2. ??Cirrhosis and stigmata of portal hypertension including gastric/splenic varices. ?? Interval: 09/04/19 CT Abdomen IMPRESSION 1. ??Lesion 1: Segment 4, site of prior embolization, LR-TR nonviable 2. ??Lesion 2: Segment 7/8, 14 mm, LR-3 3. ??Hepatic cirrhosis with stigmata of portal hypertension. Current: 02/24/20 MRI Abdomen ??IMPRESSION The previously noted LEFT hepatic lobe mass has decreased in size and is nonenhancing, measuring. No other suspicious or enhancing hepatic lesions are noted. AFP value: Tissue: Patient Characteristics: Current Child's Score: A Current MELD Score: 11 Pertinent Labs: see eDH Discussion / Recommendations of the Board: Working on treating HCV, on 6 month regimen currently. Patient has continued to drink alcohol. Lesion #1 treated Non-viable Lesion #2 seg 7/8 Hypervascular, no washout LR-3 lesion Lesion #3 segment 4, LR-3 lesion Recommendation: 3 month follow up Conference Attendees: Rakan Lopez Drinane, Angelika Sewell Gemery, Armstrong, CHECO [place], CLAIRE Sanders, Physician Specialist CLAU Espinosa *These are recommended next steps based on past studies and information available here. Specific treatment to be undertaken must ultimately be determined on an individual patient and those involved in the treatment plan. Aida Mak RN Liver Tumor & Organ Banking Specialist Division of Gastroenterology and Hepatology [facility] documented in this encounter Plan of Treatment [...] on filedocumented in this encounter Care Teams Pond Sawyer Relationship Specialty Start Date End Date Camron Suarez MD PCP - General Family Medicine 05/19/[address] [phone] documented as of this encounter
--- OUTSIDE RECORDS SUMMARY | 2022-07-21 01:18 | XMS_ITS | Encounter Summary ---
:1955 Author Organization [facility] [place] [address] Care Team Providers Name Role Phone Camron Suarez MD Primary Care Provider Encounter Details Date Type Department Care Team Description 09/04/2019 Office Visit Gastroenterology at [facility] Mehdi London HCC (hepatocellular carcinom a) (Primary Dx); [facility]CO Lucas Alcoholic cirrhosis of liver without asc ites; [place] [address] [facility] Chronic hepatitis C without hepatic coma; [phone] Center Iron deficiency anemia due to chronic bl ood loss; [place], [place] Other chronic p ain; [address] Portal hypertension Social History Tobacco Use Types Packs/Day Years [...] Sign Reading Time Taken Comments Blood Pressure 126/75 09/04/2019 12:23 PM EST Pulse 75 09/04/2019 12:23 PM EST Temperature - - Respiratory Rate - - Oxygen Saturation - - Inhaled Oxygen Concentration - - Weight 95 kg (209 lb 6.4 oz) 09/04/2019 12:23 PM EST Height 181.6 cm (5' 11.5) 09/04/2019 12:23 PM EST Body Mass Index 28.8 09/04/2019 12:23 PM EST documented in this encounter Progress Notes Mehdi London PA - 09/04/2019 12:30 PM EST Gastroenterology and Hepatology Follow Up Note Patient: Benjamín Henry Sex: male : 1955 Provider: Mehdi London PA-C PCP: Camron Suarez MD LIVER HISTORY Decompensated cirrhosis due to HCV and alcoholism -Presented to [facility] March 2019 with acute upper GI bleed Per pt - has bled before but no hospitalization PRBCs x 4 units EGD 04/20/19 with non-bleeding large EV, banded, type 1 gastroesophageal varix with stigmata of recent bleeding, banded Pt declined TIPS d/t fear of HE EGD 05/22/19 w/ large varices, banded, PHG EGD 06/24/19 w/ eradication of varices Was placed on PO iron but taking sparingly d/t fear of side effects -Ascites: Trace noted on US in March and on MRI 07/14/19, no treatment, does have trace LE edema -No HE suspected -EtOH - hard liquor and beer most days since early 20s, unknown exact quantities, as of Aug 2019 still drinking 2-3 drinks daily -HCV risk factors: IVDU, GREGORIA, tattoos -HCV RNA 1,260,443 IU/mL on 05/22/19 -Genotype 3 -No HCV treatment to date (unknown diagnosis until 03/2019) -Workup negative for other infectious hepatitis (neg HAV/HBV immunity) Hepatocellular carcinoma -Noted left lobe buldging on non-contrast CT at [facility] March 2019 -Not noted on RUQ ultrasound [...] mutation -Pt does recall being evaluated at [facility] Hepatology in 2012 for presumed HH (brother was dx'd) -Does NOT have HH, does not need therapeutic phlebotomies PROBLEM LIST Patient Active Problem List Diagnosis Code ??? UGIB (upper gastrointestinal bleed) K92.2 ??? Cirrhosis, alcoholic K70.30 ??? Esophageal varices I85.00 ??? Acute blood loss anemia D62 ??? Chronic hepatitis C without hepatic coma B18.2 ??? HCC (hepatocellular carcinoma) C22.0 Interval History: Mr. Benjamín Henry is 64 y.o. with a history of hepatocellular carcinoma and decompensated cirrhosis related to untreated HCV and alcoholism. He returns today for follow-up after CT this morning to follow-up any changes following bland embolization of the 55 mm LR-5 lesion in the left lobe on 07/31/19. He was admitted to the hospital for about 4 days following the embolization. He states he was glad to leave because he was starting to get frustrated with pain management and wanted to go home. Initially, Tylenol was not helping him at all with pain and then he was given intravenous pain medicine which did help somewhat but then made him feel unwell. He currently only has minimal abdominal discomfort. He decided not to take the gabapentin that was previously prescribed because of fear of possible side effects including suicidal ideation. He is overall feeling generally well today, stating that his energy level is good and he is not noting any blood in his stools or dark/tarry coffee-ground stools or bloody emesis. He is still not taking the iron supplement again because of fear of side effects including constipation. He is still drinking a couple drinks nightly, mostly hard lemonades, and then 1- 2 shots of liquor atnight before bed in order to calm down. He would like to read full prescribing information of any medications that we recommend. MEDICATIONS: Current Outpatient Medications Medication Sig Dispense Refill ??? folic acid (FOLVITE) 1 mg Tablet Take 1 tablet by mouth daily. 90 tablet 3 ??? triamterene-hydrochlorothiazide (DYAZIDE) 37.5-25 mg Capsule Take 2 capsules by mouth every morning. ??? thiamine (THIAMINE) Take 1 tablet by mouth daily. 30 tablet 3 ??? pantoprazole (PROTONIX) 40 mg Tablet, Delayed Release (E.C.) Take 1 tablet by mouth daily. 90 tablet 3 ??? acetaminophen (TYLENOL) 500 mg [...] sulfate 325 mg (65 mg iron) Tablet No current facility-administered medications for this visit. ALLERGIES/ADR Allergies Allergen Reactions ??? Aspirin Other (See Comments) It makes me bleed. PHYSICAL EXAMINATION: Vitals: 09/04/19 1223 BP: 126/75 BP Location (NBP): Right arm Patient Position: Sitting BP Cuff Sizes: Adult (25-34 cm) Pulse: 75 Weight: 95 kg (209 lb 6.4 oz) Height: 181.6 cm (5' 11.5) Body mass index is 28.8 kg/m??. Constitutional: Well appearing, appropriate, no acute distress Skin: No cyanosis, no palmar erythema, no jaundice, no spider angiomata Head: Subtle temporal muscle wasting, sclerae anicteric Abdomen: Nontender, nondistended Neurologic: Alert and oriented x 3, no asterixis or tremor Extremities: Trace LE edema, varicose veins, no clubbing, no muscle wasting, no joint swelling PERTINENT LABS AND IMAGING: Recent Results (from the past 24 hour(s)) Prothrombin Time Result Value Ref Range PT 16.7 (H) 9.4 - 12.5 sec INR 1.4 Comprehensive metabolic panel (non-fasting) Result Value Ref Range Glucose Lvl 101 65 - 199 mg/dL BUN 8 (L) 10 - 20 mg/dL Creatinine 0.71 (L) 0.80 - 1.50 mg/dL Sodium 136 135 - 145 mmol/L Potassium 3.3 (L) 3.5 - 5.0 mmol/L Chloride 101 98 - 107 mmol/L CO2 25 22 - 31 mmol/L Anion Gap 10 5 - 15 mmol/L Calcium 8.5 8.5 - 10.5 mg/dL Total Protein 7.9 6.1 - 8.0 gm/dL Albumin 3.2 3.2 - 5.2 gm/dL AST 41 (H) 0 - 39 unit/L ALT 19 0 - 55 unit/L Alk Phos 114 40 - 130 unit/L Total Bilirubin 0.9 0.2 - 1.3 mg/dL eGFR 99 >=60 mL/min/1.73 m?? eGFR 115 >=60 mL/min/1.73 m?? Hemogram Result Value Ref Range WBC 3.6 (L) 4.0 - 9.5 x10(3)/mcL RBC 4.66 4.58 - 5.54 x10(6)/mcL Hemoglobin 9.6 (L) 13.7 - 16.5 gm/dL Hematocrit 33.6 (L) 40.5 - 48.5 % MCV 72.1 (L) 82.9 - 93.1 fL MCH 20.6 (L) 27.5 - 32.1 pg MCHC 28.6 (L) 32.0 - 35.7 gm/dL Platelets 128 (L) 145 - 357 x10(3)/mcL RDWSD 54.9 (H) 36.0 - 45.0 fL RDWCV 21.1 (H) 11.4 - 13.8 % MPV 9.4 7.6 - 12.9 fL nRBC % Auto 0.0 % nRBC Abs Auto 0.000 0.000 - 0.000 x10(3)/mcL Differential, Automated Result Value Ref Range Neutrophils % 54.7 % Neutr Abs (ANC) 1.99 1.70 - 6.10 x10(3)/mcL Lymphocytes % 20.6 % Lymphocytes Abs 0.8 (L) 0.9 - 3.2 x10(3)/mcL Monocytes % 17.0 % Monocyte Abs 0.6 0.3 - 0.9 x10(3)/mcL Eosinophils % 5.8 % Eosinophils Abs 0.2 0.0 - 0.4 x10(3)/mcL Basophils % 1.6 % Basophils Abs 0.1 0.0 - 0.1 x10(3)/mcL Immature Gran % 0.30 % Haily Gran Abs 0.01 0.00 - 0.04 x10(3)/mcL MELD-Na score: 10 at 09/04/2019 11:27 AM [...] chest wo and CT abdomen wwo contrast today: FINDINGS: ?? CT of the Chest: ?? [...] Abdomen: ?? Prior hepatic interventions: * 07/31/2019: [place] embolization of left hepatic lobe from segment [...] infection, genotype 3. He was admitted to [facility] from 04/20-04/22 after presenting to OSH with hematemesis and melena. He was found to have large esophageal varices and gastroesophageal varix now s/p banding protocol and eradicated on recent EGD on 06/24/19. He declined TIPS during hospitalization for fear of postprocedural hepatic encephalopathy. He tolerated the embolization procedure fairly well, though did have issues with pain control. We previously discussed using gabapentin to help with pain but he is declining this due to fear of side effects. He cannot use acetaminophen or NSAIDs because of his alcoholism and cirrhosis, respectively. Ibelieve he will likely decline any other analgesic options other than opiates, which have worked in the past, though I am wary of this in regard to his own safety at home and in the setting of significant depression. I would defer that he discuss this more in detail with primary care or with a referral to a pain specialist. On today's CT, he has stable lung nodules that do not appear to be very concerning for metastases. He has no new lesions and the treated area is nonviable. We will discuss his case in liver tumor boardnext week for recommendations on how to proceed with management. Today's agenda was to discuss portal hypertension management and re-consider HCV treatment. He has agreed to consider trial of a nonselective beta barbara which is indicated for secondary bleeding prophylaxis. If he is able to start on this and tolerates it well, with staying in goal for BP and HR, hemay not need another EGD in the future. He is very certain now that he will never want a liver transplant, so we can now consider whether toinitiate antiviral therapy for HCV. I explained to him that this would be a 24-week course of sofosbuvir (400 mg)/velpatasvir (100 mg) (Epclusa). He asked for more information on the medication, which was provided. Plan: -Stat propranolol 20 mg twice daily, with possible increase to 40 mg twice daily. Goal HR between 50-60 bpm and SBP should not drop below 90 mmHg. Advised he obtain a home BP cuff. -Discuss case at Liver Tumor Board next week. Likely will repeat MRI in 3 months. -Strongly recommend he continue daily iron supplement. May need to consider IV iron infusions thoughhe is against this idea. -Provided reading material on Epclusa. We will discuss HCV treatment process next visit. -Continue to work on sobriety from alcohol. Consider inpatient rehab/detox. -No treatments needed for ascites or encephalopathy. -For pain - follow-up with primary care or we may refer to the Pain Clinic. Acetaminophen 2000 mg would be safe if he was not drinking. Avoid NSAIDs. Reassured safety of gabapentin. -Follow-up in 1 month with myself or attending angular developer. 38 of this 40 minute visit was in [id number] discussion regarding disease, prognosis and treatment. BETY MartinC Section of Gastroenterology [place] [address] Cc: Camron Suarez MD @[email or web address]@ documented in this encounter Plan of Treatment Scheduled Procedures Name Priority Associated Diagnoses Date/Time EGD, UPPER GI ENDOSCOPY Alcoholic cirrhosis, uns pecified whether ascites present Portal hypertension documented as of this encounter Results (ABNORMAL) Prothrombin Time (02/24/2020 3:11 PM EDT) P athologist Signature PT 14.6 (H) 9.4 - 12.5 [facility] LABORATORY INR 1.3 [facility] LABORATORY Comment: An INR <2.0 indicates [...] Location / / Volume Laterality Blood specimen 02/24/2020 3:11 PM 020 3:22 (specimen) EDT PM EDT Resulting Agency Comment Spec In Lab Jia Bledsoe MD HEMATOLOGY ORDERABLES Performing Organization Address City/State/[place] [address] (ABNORMAL) Comprehensive metabolic panel (non-fasting) (02/24/2020 3:11 PM EDT) P athologist Signature Glucose Lvl 93 65 - 199 [facility] mg/dL [facility] LABORATORY Comment: Diabetes: >=200 mg/dL plus symp toms BUN 7 (L) 10 - 20 mg/dL [facility] LABORATORY Creatinine 0.76 (L) 0.80 - 1.50 mg/dL [facility] LABORATORY Sodium 135 135 - 145 mmol/L [facility] LABORATORY Potassium 3.6 3.5 - 5.0 mmol/L [facility] LABORATORY Comment: Please note: ??Patients with WBC >100,00 0 may have falsely elevated Potassium levels. ??For accurate Potassium quantif ication in these patients send serum separator tube (gold top) for subsequent determinations. ??Contact the Clinical Chemistry Laboratory if there are any qu estions. Chloride 99 98 - 107 mmol/L [facility] CO2 22 22 - 31 mmol/L [facility] Anion Gap 14 5 - 15 mmol/L [facility] LABORATORY Calcium 8.9 8.5 - 10.5 mg/dL [facility] LABORATORY Total Protein 8.1 (H) 6.1 - 8.0 gm/dL [facility] LABORATORY Albumin 3.9 3.2 - 5.2 gm/dL [facility] AST 65 (H) 0 - 39 unit/L [facility]OR[facility] ALT 34 0 - 55 unit/L [facility]ORY Alk Phos 94 40 - 130 unit/L [facility] Total Bilirubin 1.4 (H) 0.2 - 1.3 mg/dL [facility] LABORATORY Estimated GFR 96 >=60 mL/min/1.73 m?? [facility] Comment: The eGFR was calculated using the CKD-EP I equation. As with all creatinine based estimates of kidney function, eGFR values calculated with the CKD-EPI equation are not accurate in patients wi th acute kidney failure, extremes of body mass or the acutely ill. [email or web address] eGFR 112 >=60 mL/min/1.73 m?? [facility] Comment: The eGFR was calculated using the CKD-EP I equation. As with all creatinine based estimates of kidney function, eGFR values calculated with the CKD-EPI equation are not accurate in patients wi th acute kidney failure, extremes of body mass or the acutely ill. [email or web address] Specimen Anatomical Collection Method Collection Time Receive d Time (Source) Location / / Volume Laterality Blood specimen 02/24/2020 3:11 PM 020 3:22 (specimen) EDT PM EDT Resulting Agency Comment Spec In Lab Jia Bledsoe MD CHEMISTRY ORDERABLES Performing Organization Address City/State/[place] [address] documented in this encounter Visit Diagnoses Diagnosis HCC (hepatocellular carcinoma) - Primary Malignant neoplasm of liver, primary Alcoholic cirrhosis of liver without asc ites Alcoholic cirrhosis of liver Chronic hepatitis C without hepatic coma Iron deficiency anemia due to chronic bl ood loss Iron deficiency anemia secondary to bloo d loss (chronic) Other chronic pain Portal hypertension documented in this encounter Care Teams Claim Processing Specialist Relationship Specialty Start Date End Date Camron Suarez MD PCP - General Family Medicine 05/19/19 44 [facility] [address] [place] [phone] documented as of this encounter
--- OUTSIDE RECORDS SUMMARY | 2022-07-21 01:18 | XMS_ITS | Encounter Summary ---
:1955 Author Organization [facility] [address] Care Team Providers Name Role Phone Camron Suarez MD Primary Care Provider Reason for Visit Reason Comments Medication Management Patient Education Encounter Details Date Type Department Care Team Description 11/21/2019 Specialty Pharmacy Pharmacy at [facility] Milli Thapa Medication [facility] REE Carpenter Managemen t; [place] [phone] Social History Tobacco Use Types Packs/Day Years [...] encounter Progress Notes Milli Thapa RPH - 11/21/2019 11:13 AM EST Specialty Pharmacy Consultation; Milli Thapa RPH Comprehensive Medication Management (CMM) Benjamín Roberto Purvis Diagnosis: HCV Therapy Start Date: 11/05/19 [...] hepatitis C treatment with Epclusa. He has 12 tablets remaining (including today's dose) of his current supply which aligns with his start date and his report of no missed doses throughout the treatment thus far. He reports multiple complaints that are unrelated to the Epclusa treatment. He reports upper right quadrant pain because he slipped and fell walkingup some stairs and he thinks he may have cracked a rib. He also reports arthritic pain in his jointswhen he carries heavy items. He is no longer having the chest pains that he reported before. He has not taken the pantoprazole 20mg that Shahram London prescribed because he hasn't felt like he's needed it. He takes the 1 tablet of Epclusa at around 10 to 11am every day. He says he just remembers to take it but has not set up any reminders. He reports that he is staying well hydrated by drinking approximately 4 liters of mineral water every day. He understands the importance of adherence. He reports no changes in allergies, medications or medical conditions. He is aware that he needs to get labs done after 4 weeks of treatment and he is aware that he has a FUV with Shahram London on 12/10. I also reminded him that he should throw away his nail clippers, razor, and toothbrush after he finishes treatment. We are refilling the Epclusa and mailing it out to him. He would like this fill of Epclusa sent to hisbrother's residence in [place], [place] because he doesn't know when he'll be back to his house in [place], [place]. No recommendations at this time. Clinic Follow-up needed: yes - Patient needs 4 week lab orders sent to [facility] He has a FUV with Shahram London on 12/10. Allergies and Drug intolerance: Allergies Allergen Reactions ??? Aspirin Other (See Comments) It makes me bleed. Special Dietary Requirements: no There is no height or weight on file to calculate BMI. Medication Reconciliation Discrepancies (compared to [facility] med list) Patient reports that the only medications he's currently taking are Dyazide and Folic acid. Medication Adherence Patient reported X missed doses [...] beneficiary Provider: plan sponsor pharmacist Visit Type: [facility] Follow-up Method of Contact: by telephone Cognitive [...] rationale discussed, adherence and missed doses discussed, pharmacy contact information discussed, health goals discussed, monitoring medication discussed, over the counter products discussed, preventative care discussed, reminder to refill or pick pulling machine operator medication discussed, self-monitoring discussed, timing of medications [...] rationale discussed, adherence and missed doses discussed, pharmacy contact information discussed, health goals discussed, monitoring medication discussed, over the counter products discussed, preventative care discussed, reminder to refill or pick pulling machine operator medication discussed, self-monitoring discussed, timing of medications discussed, referral needs discussed Treatment Outcomes 11/21/2019 1117 Disease progression: Stable Reviewed in detail with [...] strategies, and interruptions in therapy: Yes Physical Assessment: Functional limitations identified: no Cognitive limitations identified: no Concern regarding orientation/memory: no Concern with reasoning/judgement: no Is patient a fall risk: no Other needed information: no Social Assessment: Does the patient have a primary care information associate? no Patient has emergency contact on file: Yes Does patient need referral to health care social worker: No Does patient need referral [...] Amount: $3.00 Day Supply: 28 Date Needed: 12/03/19 Copay assistance required: no Therapy Assessment: Current Medication Dosing/Route/Frequency: Epclusa 1 tablet by mouth once daily x 24 weeks Appropriate Therapy: Yes Genotype: 3 Treatment Naive/Experienced: Naive Fibrosis Score: F4 (decompensated) HX of liver transplant: no HBV Coinfection: no HIV Coinfection: no Lab schedule reviewed: Yes Upcoming Lab Reminder Given: Yes Personal Hygiene Device Disposal Reminder Given: Yes Side Effects From Medication: no Side Effect Mitigation Strategies Discussed: Yes Proper Hydration: Yes Missed Doses: no Barriers to Adherence: no Adherence Tools Used by Patient: no Number of Days Supply Remaining from Prior Fill: 12 (including today) Recent Changes to Supplemental Medications: no Effectiveness: TBD Most Recent HCV Viral Load: 1,260,443 IU/mL pre-treatment Undetectable RVR4 Labs: TBD Educational information or adherence tools provided? Yes HCV therapy adherence: Yes HCV treatment response: Yes Patient experienced change in condition that affects treatment: no Patient's goals: Patient's specific desired goal: SVR12 Measured by: HepC viral load 12 weeks post-treatment Time-frame to meet goal: 12 weeks post-treatment Is the patient on track to achieve goals of therapy? Yes Expected Outcome: SVR12 Plan of Care Reviewed and Approved by Patient: Yes Did Care Plan Change? No Interventions (if applicable): No N/A Monitoring: CBC, CMP, HepC viral load Additional care/services needed: no Pharmacist Follow-up needed: [...] were made at the appointment and that [facility] is providing recommendations (summary located at top of note) for provider review and follow up. Milli Thapa RPH 11/21/19 11:17 AM documented in this encounter Plan of [...] on filedocumented in this encounter Care Teams Child Specialist Relationship Specialty Start Date End Date Camron Suarez MD PCP - General Family Medicine 05/19/[address] [place] [phone] documented as of this encounter
--- OUTSIDE RECORDS SUMMARY | 2022-07-21 01:18 | XMS_ITS | Encounter Summary ---
:1955 Author Organization [facility] [place] [address] Care Team Providers Name Role Phone Camron Suarez MD Primary Care Provider Encounter Details Date Type Department Care Team Description 01/30/2020 Telephone [place]ology [place] [facility] [place] [address] Social History Tobacco Use Types Packs/Day [...] Notes Telephone Encounter - Sherrill Espinosa - 01/30/2020 12:14 PM EDT Called pt to try to reschedule his previously cancelled MRI. Left a requesting he call us back todo so. documented in this encounter Plan of Treatment Scheduled Procedures Name Priority Associated Diagnoses Date/Time EGD, UPPER GI ENDOSCOPY Alcoholic cirrhosis, uns pecified whether ascites present Portal hypertension documented as of this encounter Goals Goal Patient Goal Associated Recent Patient-Stated? Author Type Problems Progress DH Home Medication Patient On track No Elire , Compliance and Facing (03/15/2020 Milli Carpenter, Understanding Action Plan 12:42 PM [facility] EDT) Note: Formatting of this note might be d ifferent from the original. SVR12 through treatment with Epclusa x 2 4 weeks documented as of this encounter Visit Diagnoses Not on filedocumented in this encounter Care Teams Security Incident Response Specialist Relationship Specialty Start Date End Date Camron Suarez MD PCP - General Family Medicine 05/19/[address] [place] [phone] documented as of this encounter
--- OUTSIDE RECORDS SUMMARY | 2022-07-21 01:18 | XMS_ITS | Encounter Summary ---
:1955 Author Organization [facility] [place] [address] Care Team Providers Name Role Phone Camron Suarez MD Primary Care Provider Reason for Visit Reason Comments Medication Management Encounter Details Date Type Department Care Team Description 02/13/2020 Specialty Pharmacy Pharmacy at [facility] Milli Thapa Medication [facility] [place] [address] Social History Tobacco Use Types Packs/Day Years [...] encounter Progress Notes Milli Thapa RPH - 02/13/2020 12:12 PM EDT Specialty Pharmacy Consultation; Milli Thapa [...] Henry??was contacted regarding his hepatitis C treatment with??Epclusa.?He has??12??tablets remaining (including today's dose)??of his current supply which aligns with his start date and hisreport of no missed doses throughout the treatment thus far.??He reports that he seems to be tolerating the medication well at this point and is not experiencing any side effects.??He??takes??the??1 tablet of Epclusa??at around??10??or??11am??every day.??He??reports that he??is staying well hydrated.??He understands the??importance of adherence. He reports no changes in allergies, medications or medical conditions. He does report that his insurance will automatically change to Medicare on February 22 because he is turning 65 this year. He is concerned that his Epclusa as well as his MRI on 02/23 and hisFUV with Shahram London on 02/25 will not be covered under his new insurance plan. ??I told him not to worry about the Epclusa being covered because we would very likely be able to enroll him in copay assistance that would cover the entire cost of Epclusa if needed. I instructed him to call me when he has his new insurance info because he will likely need a new PA for his final fill. We are refilling the??Epclusa??and mailing it out to him.??No recommendations at this time. Clinic Follow-up needed: yes - Patient has MRI on 02/23 and FUV with Shahram London on 02/25. Allergies and Drug intolerance: Allergies Allergen Reactions ??? Aspirin Other (See Comments) It makes me bleed. Special Dietary Requirements: no There is no height or weight on file to calculate BMI. Medication Reconciliation Discrepancies (compared to [facility] med list) -He reports that the only [...] Lab Results Component Value Date NA 136 12/23/2019 K 3.3 12/23/2019 CL 101 12/23/2019 CO2 25 12/23/2019 BUN 9 12/23/2019 CREATININE 0.83 12/23/2019 GLUCOSE 101 09/04/2019 CALCIUM 8.1 12/23/2019 Lab Results Component Value Date ALT 36 12/23/2019 AST 54 12/23/2019 ALKPHOS 101 12/23/2019 BILITOT 1.0 12/23/2019 BILIDIR 0.7 (H) 04/22/2019 ALBUMIN 3.1 12/23/2019 PROT 7.9 12/23/2019 Lab Results Component Value Date WBC 3.42 12/23/2019 HGB 10.5 12/23/2019 HCT 35.3 12/23/2019 MCV 71.5 12/23/2019 PLATELET 122 12/23/2019 No results found for: HA1C There is no immunization history on file for this patient. Assessment and Recommendations: Title Type of Medication Management: chronic disease management, targeted medication review Referred By: provider Recipient: beneficiary Provider: plan sponsor pharmacist Visit Type: [facility] Follow-up Method of Contact: by telephone Cognitive [...] follow-up discussed, adherence and missed doses discussed, health goals discussed, monitoring medication discussed, over the counter products discussed, preventative care discussed, reminder to refill or tack picker medication discussed, self-monitoring discussed, timing of [...] follow-up discussed, adherence and missed doses discussed, health goals discussed, monitoring medication discussed, over the counter products discussed, preventative care discussed, reminder to refill or tack picker medication discussed, self-monitoring discussed, timing of medications discussed, referral needs discussed Treatment Outcomes 02/13/2020 1215 Disease progression: Stable Effectiveness of therapy, reported improvements: Improved Reviewed in detail with patient: Dose appropriateness [...] Assessment: Does the patient have a primary neurocritical care physician? no Does the patient have an emergency contact on file: Yes Does patient need referral to psychiatric social worker supervisor: No Does patient need referral to advocacy [...] Amount: $3.00 Day Supply: 28 Date Needed: 02/25/20 Copay assistance required: no Therapy Assessment: Current Medication Dosing/Route/Frequency: Epclusa 400-100mg take 1 tablet by mouth once daily x 24 weeks Appropriate Therapy: Yes Genotype: 3 ?Treatment Naive/Experienced:??Naive ?Fibrosis Score:??F4 (decompensated) ?HX of liver transplant:??no ?HBV Coinfection:??no ?HIV Coinfection:??no Effective: yes - HCV RNA undected after ~7 weeks of treatment Most Recent HCV Viral Load: Undetected on 12/23/19 Undetectable RVR4 Labs: yes - see above [...] plans of care based on: Patient's request: no Condition: no Response to therapy: no Provider request: no Follow-up needed: No Interventions (if applicable): No [...] were made at the appointment and that [facility] is providing recommendations (summary located at top of note) for provider review and follow up. Milli Thapa RPH 02/13/20 12:15 PM documented in this encounter Plan of Treatment Scheduled Procedures Name Priority Associated Diagnoses Date/Time EGD, UPPER GI ENDOSCOPY Alcoholic cirrhosis, uns pecified whether ascites present Portal hypertension documented as of this encounter Goals Goal Patient Goal Associated Recent Patient-Stated? Author Type Problems Progress DH Home Medication Patient On track No Elier Compliance and Facing (03/15/2020 Milli Carpenter Understanding Action Plan 12:42 PM [facility] EDT) Note: Formatting of this note might be d ifferent from the original. SVR12 through treatment with Epclusa x 2 4 weeks documented as of this encounter Visit Diagnoses Not on filedocumented in this encounter Care Teams Unit Manager Rn Relationship Specialty Start Date End Date Camron Suarez MD PCP - General Family Medicine 05/19/19 [address] [facility] [address] [place] [phone] documented as of this encounter
--- OUTSIDE RECORDS SUMMARY | 2022-07-21 01:18 | XMS_ITS | Encounter Summary ---
:1955 Author Organization [facility] [place] [address] Care Team Providers Name Role Phone Camron Suarez MD Primary Care Provider Reason for Visit Reason Comments Medication Management Encounter Details Date Type Department Care Team Description 10/10/2019 Specialty Pharmacy Pharmacy at [facility] [place] [place] Milli Thapa Medication [facility] [place] [address] Social History Tobacco Use Types Packs/Day Years [...] as of this encounter Progress Notes Milli hTapa RPH - 10/10/2019 2:48 PM EST Clinical Management Plan: In-clinic New Start Consult Specialty Pharmacy Consultation; Milli Thapa RPH Comprehensive Medication Management (CMM) Benjamín Roberto Henry Diagnosis: HCV Therapy Start Date: TBD Contact in person or via telephone: in person Mr. Benjamín Henry is a 64 y.o. (1955) male who was contacted in regard to specialty medication. Spoke with patient regarding Epclusa. A review of the medication therapy was performed. All medication related questions and concerns were addressed. Summary and Recommendations: Mr. Benjamín Henry is a 64 y.o. (1955) male who I met with in the clinic regarding potential hepatitis C treatment with Epclusa. During the consult we briefly discussed the medication, possible sideeffects and mitigation strategies, the importance of adherence, the lab schedule throughout treatment, goals of therapy, and the services that the specialty pharmacy provides. I provided the patient with the specialty pharmacy contact information and handout about our services as well as a print out of information about [facility]. He plans on getting the medication shipped to him at [address] [place] [address]. His best contact number is his cell #[phone]. His back up number is his brother's cell #[phone]. It's ok to leave voicemails on both phones. He currently lives in [place], [place] which is [place] near [place], buthe might move to [place] in the near future. I explained that it was important he keep me upd ed of any changes in his address, insurance, or contact number throughout treatment. He is taking pantoprazole which interacts with Epclusa. We discussed that it was very important he spaces the pantoprazole appropriately if he is going to stay on it. I will follow up with Shahram London to determine if he needs to stay on the Pantoprazole. He understands that the medication has not yet been prescribed, that additional testing and lab results are needed prior to his provider prescribing the medication, and that there is a prior authorization process that needs to occur prior to us filling the medication. The patient understands that oncethe medication is approved, the specialty pharmacy will follow up with him accordingly. If the patient is eligible to fill with the [facility] specialty pharmacy, we will contact the patient per the followingschedule: Initial pharmacist consult, day 3 follow-up, refill reminder and follow-up 10 days prior to refill, end of treatment follow-up. Informed patient of specialty pharmacy services: Yes -Patient is aware a licensed pharmacist is available 24 hours a day, 7 days a week to discuss medication-related questions or concerns: Yes -Patient verbalizes understanding of the common side effect profile of their medication. The patientis able to call 911 or seek urgent care if signs/symptoms of allergy or harmful adverse reactions occur: Yes Patient understands no changes to current drug regimen were made at the appointment and that [facility] is providing recommendations (summary located at top of note) for provider review and follow up. Milli Thapa RPH 10/10/19 2:48 PM documented in this encounter Plan of Treatment Scheduled Procedures Name Priority Associated Diagnoses Date/Time EGD, UPPER GI ENDOSCOPY Alcoholic cirrhosis, uns pecified whether ascites present Portal hypertension documented as of this encounter Visit Diagnoses Not on filedocumented in this encounter Care Teams Manager Sas Relationship Specialty Start Date End Date Camron Suarez MD PCP - General Family Medicine 05/19/[address] [place] [phone] documented as of this encounter
--- OUTSIDE RECORDS SUMMARY | 2022-07-21 01:18 | XMS_ITS | Encounter Summary ---
:1955 Author Organization [facility] [place] [address] Care Team Providers Name Role Phone Camron Suarez MD Primary Care Provider Encounter Details Date Type Department Care Team Description 12/19/2019 Orders Only Gastroenterology at [facility] [place] Mehdi London Chronic hepatitis C without hepatic coma; [facility] [place] [phone] [facility] [phone] [place] [address] Social History Tobacco Use Types Packs/Day Years [...] Milli Carpenter, Understanding Action Plan 12:42 PM [facility] EDT) Note: Formatting of this note might be d ifferent from the original. SVR12 through treatment with Epclusa x 2 4 weeks documented as of this encounter Visit Diagnoses Diagnosis Chronic hepatitis C without hepatic coma Hepatocellular carcinoma Malignant neoplasm of liver, primary documented in this encounter Care Teams Candy Dipper Hand Relationship Specialty Start Date End Date Camron Suarez MD PCP - General Family Medicine 05/19/[address] [place] [phone] documented as of this encounter
--- OUTSIDE RECORDS SUMMARY | 2022-07-21 01:18 | XMS_ITS | Encounter Summary ---
:1955 Author Organization [facility] [place] [address] Care Team Providers Name Role Phone Camron Suarez MD Primary Care Provider Reason for Visit Reason Comments Specialty Pharmacy Review Encounter Details Date Type Department Care Team Description 02/26/2020 Specialty Pharmacy [place] [facility] Ileana Game[facility] [place] [address] Social History Tobacco Use Types Packs/Day Years [...] Carpenter, Understanding Action Plan 12:42 PM [facility] EDT) Note: Formatting of this note might be d ifferent from the original. SVR12 through treatment with Epclusa x 2 4 weeks documented as of this encounter Visit Diagnoses Not on filedocumented in this encounter Care Teams Customer Experience Strategist Relationship Specialty Start Date End Date Camron Suarez MD PCP - General Family Medicine 05/19/[address] [phone] documented as of this encounter
--- OUTSIDE RECORDS SUMMARY | 2022-07-21 01:18 | XMS_ITS | Encounter Summary ---
:1955 Author Organization [facility] [place] [address] Care Team Providers Name Role Phone Camron Suarez MD Primary Care Provider Encounter Details Date Type Department Care Team Description 02/24/2020 Laboratory Appointment Lab 3L [facility] [place] Alcoholic cirrhosis of liver without ascites; [facility] Chronic hepatitis [place] [address] Social History Tobacco Use Types Packs/Day Years [...] Understanding Action Plan 12:42 PM [facility] EDT) Note: Formatting of this note might be d ifferent from the original. SVR12 through treatment with Epclusa x 2 4 weeks documented as of this encounter Procedures Procedure Name Priority Date/Time Associated Comments Diagnosis SCAN, PERIPHERAL BLOOD Routine 02/24/2020 3:11 PM Results for this EDT procedure are i n the results section. HEMOGRAM Routine 02/24/2020 3:11 PM Alcoholic Results f or this EDT cirrhosis of liver procedure are in without ascites the results section. DIFFERENTIAL, AUTOMATED Routine 02/24/2020 3:11 PM Alcoholic Results for this EDT cirrhosis of liver procedure are in without ascites the results section. IRON AND TIBC Routine 02/24/2020 3:11 PM Results for this EDT procedure are i n the results section. HC HCV QUANTIFICATION Routine 02/24/2020 3:11 PM Chronic hepat itis Results for this EDT C without hepatic procedure are in coma the results section. HC PROTHROMBIN TIME Routine 02/24/2020 3:11 PM Alcoholic Re sults for this EDT cirrhosis of liver procedure are in without ascites the results section. HC CBC,PLT & AUTO DIFF Routine 02/24/2020 3:11 PM Alcoholic EDT cirrhosis of liver without ascites TSH Routine 02/24/2020 3:11 PM Results f or this EDT procedure are i n the results section. HEMOGLOBIN A1C Routine 02/24/2020 3:11 PM Results for this EDT procedure are i n the results section. COMPREHENSIVE METABOLIC Routine 02/24/2020 3:11 PM Alcoholic Results for this PANEL (NON-FASTING) EDT cirrhosis of liver pr ocedure are in without ascites the results section. documented in this encounter Results Hemoglobin A1c (02/24/2020 3:11 PM EDT) athologist Signature Hemoglobin A1C 5.3 4.3 - 5.6 [facility] Comment: Reference Range: 4.3 - 5.6% 5.7 - 6.4% - Increased Risk of Developin g Diabetes Mellitus >= 6.5% - Consistent with diagnosis of D iabetes Mellitus In the absence of hyperglycemia (i.e. pl asma glucose > 200 mg/dL) or classic symptoms of hyperglycemia a repeat measu rement of HbA1c should be performed on a separate sample to confirm the diagnos is. Diagnosis and Classification of Diabetes Mellitus, Diabetes Care 2013; 36: Suppl. 1, S67-72 Est Avg Gluc 105 mg/dL CHRISTY NUHA [facility] Comment: eAG equivalents for HbA1c percentages: HbA1c(%) ?eAG(mg/dL) 6.0 ?126 6.5 ?140 7.0 ?154 7.5 ?169 8.0 ?183 8.5 ?197 9.0 ?212 9.5 ?226 10.0 ? 240 Limitations: The eAG calculation has not been validated on women, individuals below 18 years old and above 70 years old, and individuals with hemoglobinopathies. Additional resources are available on [facility] ADA website. Pritesh GUZMÁN, Frederick J, Charlie R, et al. ??Tr anslating the A1C assay into estimated average glucose values. ??Diabetes Care 2008:31(8):4932-0069. Specimen Anatomical Collection Method Collection Time Receive d Time (Source) Location / / Volume Laterality Blood specimen Venous Draw / 02/24/2020 3:11 PM 2019 3:23 (specimen) Unknown EDT PM EDT Resulting Agency Comment Spec In Lab Mehdi KESSLER CHEMISTRY ORDERABLES Performing Organization Address City/State/[place] [address] (ABNORMAL) Iron and TIBC (02/24/2020 3:11 PM EDT) Analysis Performed At Patho logist Time Signature Iron 46 45 - 160 [facility] mcg/dL [facility] TIBC 508 (H) 250 - 450 [facility] mcg/dL [facility] Iron Saturation 9 (L) 20 - 50 % [facility] Specimen Anatomical Collection Method Collection Time Receive d Time (Source) Location / / Volume Laterality Blood specimen Venous Draw / 02/24/2020 3:11 PM 2019 3:25 (specimen) Unknown EDT PM EDT Resulting Agency Comment Spec In Lab Mehdi KESSLER CHEMISTRY ORDERABLES Performing Organization Address City/[facility]/ZIP Code Phon e Number [address] (ABNORMAL) TSH (02/24/2020 3:11 PM EDT) P athologist Signature TSH 5.62 (H) 0.27 - 4.20 [facility] mcIU/mL [facility] Specimen Anatomical Collection Method Collection Time Receive d Time (Source) Location / / Volume Laterality Blood specimen Venous Draw / 02/24/2020 3:11 PM 2019 3:25 (specimen) Unknown EDT PM EDT Resulting Agency Comment Spec In Lab Mehdi KESSLER CHEMISTRY ORDERABLES Performing Organization Address City/[facility]/ZIP Code Phon e Number [address] Scan, Peripheral Blood (02/24/2020 3:11 PM EDT) Patholo gist Method Time Signature Plat Estimate Decreased [facility] RBC Morphology Abnormal [facility] Microcytes 1-5 /HPF [facility] Hypochromia Slight [facility] Tear Drop Cells 1-5 /HPF [facility] Specimen Anatomical Collection Method Collection Time Receive d Time (Source) Location / / Volume Laterality Blood specimen 02/24/2020 3:11 PM 020 3:22 (specimen) EDT PM EDT Resulting Agency Comment Spec In Lab Mehdi KESSLER HEMATOLOGY ORDERABLES Performing Organization Address City/[facility]/ZIP Code Phon e Number [address] Differential, Automated (02/24/2020 3:11 PM EDT) P athologist Signature Neutrophils % 48.9 % [facility] Neutr Abs (ANC) 1.93 1.70 - [facility] 6.10 [facility] x10(3)/[facility] LABORATORY Lymphocytes % 34.8 % [facility] Lymphocytes Abs 1.4 0.9 - 3.2 [facility] x10(3)/[facility] LABORATORY Monocytes % 10.7 % [facility] Monocyte Abs 0.4 0.3 - 0.9 [facility] x10(3)/[facility] LABORATORY Eosinophils % 3.3 % [facility] Eosinophils Abs 0.1 0.0 - 0.4 [facility] x10(3)/[facility] LABORATORY Basophils % 2.0 % [facility] Basophils Abs 0.1 0.0 - 0.1 [facility] x10(3)/[facility] LABORATORY Immature Gran % 0.30 % [facility] Comment: Immature granulocytes(IG's)percentage an d absolute count will include metamyelocytes, myelocytes, and promyelo cytes. Blood smears from CBCs yielding IG's will be scanned manually for concor dance. If this scan disagrees with the automated IG or if promyelocytes are not ed, a manual differential will be performed. Haily Gran Abs 0.01 0.00 - 0.04 x10(3)/[facility] Specimen Anatomical Collection Method Collection Time Receive d Time (Source) Location / / Volume Laterality Blood specimen 02/24/2020 3:11 PM 020 3:22 (specimen) EDT PM EDT Resulting Agency Comment Spec In Lab Mehdi KESSLER HEMATOLOGY ORDERABLES Performing Organization Address City/State/[place] [address] (ABNORMAL) Hemogram (02/24/2020 3:11 PM EDT) Analysis Performed At Patho logist Time Signature WBC 3.9 (L) 4.0 - 9.5 [facility] x10(3)/[facility] LABORATORY RBC 5.60 (H) 4.58 - [facility] 5.54 [facility] x10(6)/[facility] LABORATORY Hemoglobin 12.4 (L) 13.7 - CHRISTY NUHA 16.5 gm/dL [facility] Hematocrit 41.8 40.5 - [facility] 48.5 % [facility] MCV 74.6 (L) 82.9 - [facility] 93.1 [facility] LABORATORY MCH 22.1 (L) 27.5 - CHRISTY DAVISONNUHA 32.1 pg [facility] MCHC 29.7 (L) 32.0 - [facility] 35.7 gm/dL [facility] Platelets 131 (L) 145 - 357 [facility] x10(3)/[facility] LABORATORY RDWSD 54.3 (H) 36.0 - [facility] 45.0 [facility] LABORATORY RDWCV 21.4 (H) 11.4 - [facility] 13.8 % [facility] MPV 9.7 7.6 - 12.9 [facility] LABORATORY nRBC % Auto 0.0 % [facility] nRBC Abs Auto 0.000 0.000 - [facility] 0.000 [facility] x10(3)/[facility] LABORATORY Specimen Anatomical Collection Method Collection Time Receive d Time (Source) Location / / Volume Laterality Blood specimen 02/24/2020 3:11 PM 020 3:22 (specimen) EDT PM EDT Resulting Agency Comment Spec In Lab Mehdi KESSLER HEMATOLOGY ORDERABLES Performing Organization Address City/State/[place] [address] Hepatitis C RNA, quantitative, PCR (02/24/2020 3:11 PM EDT) Component Value Ref Test Analysis Performed At [facility] Range Method Time Signature HCV Viral <12 IU/mL [facility] LABORATORY HCV Viral Result: <12 IU/mL (Target Not Detected) [facility] Indication for Study: Hepatitis C Infection [facility] Analysis: The [employer] RealTime HCV assay is an in vitro reverse behavioral health professional LABORATORY polymerase chain reaction (RT-PCR)for the quantitation of hepatitis C viral (HCV) RNA in human serum or plasma (EDTA) from HCV-infected indivi duals. Sample: plasma (0.7 mL minimum volume) Method: [employer] RealTime HCV Assay Linear Range: 12 IU/mL - 100,000,000IU/mL Note: The [employer] RealTime HC V Assay has been approved by the U.S. Food and Drug Administration. Comment: [VERIFIED DATE]03.01.20 Verified By:Marysol Guerrero (Electronic Signature) Specimen Anatomical Collection Method Collection Time Receive d Time (Source) Location / / Volume Laterality Blood specimen 02/24/2020 3:11 PM 020 4:16 (specimen) EDT PM EDT Resulting Agency Comment Spec In Lab Jia Bledsoe MD IMMUNOLOGY ORDERABLES Performing Organization Address City/State/[place] [address] (ABNORMAL) Comprehensive metabolic panel (non-fasting) (02/24/2020 3:11 PM EDT) athologist Signature Glucose Lvl 93 65 - 199 [facility] mg/dL [facility] Comment: Diabetes: >=200 mg/dL plus symp toms BUN 7 (L) 10 - 20 mg/dL [facility] Creatinine 0.76 (L) 0.80 - 1.50 mg/dL [facility] Sodium 135 135 - 145 mmol/L [facility] Potassium 3.6 3.5 - 5.0 mmol/L [facility] Comment: Please note: ??Patients with WBC >100,00 0 may have falsely elevated Potassium levels. ??For accurate Potassium quantif ication in these patients send serum separator tube (gold top) for subsequent determinations. ??Contact the Clinical Chemistry Laboratory if there are any qu estions. Chloride 99 98 - 107 mmol/L [facility] CO2 22 22 - 31 mmol/L [facility] Anion Gap 14 5 - 15 mmol/L [facility] Calcium 8.9 8.5 - 10.5 mg/dL [facility] Total Protein 8.1 (H) 6.1 - 8.0 gm/dL [facility] Albumin 3.9 3.2 - 5.2 gm/dL [facility] AST 65 (H) 0 - 39 unit/L [facility] ALT 34 0 - 55 unit/L [facility] Alk Phos 94 40 - 130 unit/L [facility] Total Bilirubin 1.4 (H) 0.2 - 1.3 mg/dL [facility] Estimated GFR 96 >=60 mL/min/1.73 m?? [facility] Comment: The eGFR was calculated using the CKD-EP I equation. As with all creatinine based estimates of kidney function, eGFR values calculated with the CKD-EPI equation are not accurate in patients wi th acute kidney failure, extremes of body mass or the acutely ill. [email or web address] eGFR 112 >=60 mL/min/1.73 m?? [facility] Comment: The eGFR was calculated using the CKD-EP I equation. As with all creatinine based estimates of kidney function, eGFR values calculated with the CKD-EPI equation are not accurate in patients wi th acute kidney failure, extremes of body mass or the acutely ill. [email or web address] [email or web address] Specimen Anatomical Collection Method Collection Time Receive d Time (Source) Location / / Volume Laterality Blood specimen 02/24/2020 3:11 PM 020 3:22 (specimen) EDT PM EDT Resulting Agency Comment Spec In Lab Jia Bledsoe MD CHEMISTRY ORDERABLES Performing Organization Address City/State/[place] [address] (ABNORMAL) Prothrombin Time (02/24/2020 3:11 PM EDT) P athologist Signature PT 14.6 (H) 9.4 - 12.5 [facility] LABORATORY INR 1.3 [facility] Comment: An INR <2.0 indicates [...] Organization Address City/State/[place] [address] documented in this encounter Visit Diagnoses Diagnosis Alcoholic cirrhosis of liver without asc ites Alcoholic cirrhosis of liver Chronic hepatitis C without hepatic coma documented in this encounter Care Teams Exchange Specialist Relationship Specialty Start Date End Date Camron Suarez MD PCP - General Family Medicine 05/19/[address] [place] [phone] documented as of this encounter
--- OUTSIDE RECORDS SUMMARY | 2022-07-21 01:18 | XMS_ITS | Encounter Summary ---
:1955 Author Organization [facility] [place] [address] Care Team Providers Name Role Phone Camron Suarez MD Primary Care Provider Reason for Visit Reason Comments Medication Management Encounter Details Date Type Department Care Team Description 01/16/2020 Specialty Pharmacy Pharmacy at [facility] Milli Thapa Medication [facility] [place] [address] Social History Tobacco Use Types Packs/Day Years [...] encounter Progress Notes Milli Thapa RPH - 01/16/2020 2:11 PM EDT Specialty Pharmacy Consultation; Milli Thapa [...] medication well at this point and is no longer experiencing any side effects.??He??takes??the??1 tablet of Epclusa??at around??10 or 11am??every day.??He??reports that he??is staying well hydrated??by drinking??a lot of??mineral water??every day.??He understands the??importance of adherence. He r eports no changes in allergies, medications or medical conditions. He reports that the only medications he is currently taking are Dyazide, Folic acid, and Epclusa. We are refilling the Epclusa and mailing it out to him. No recommendations at this time. Clinic Follow-up needed: yes - Patient needs to re-schedule MRI (says he will call Sunday). Hepatology F/U TBD based on MRI results, likely 3 months. Allergies and Drug intolerance: Allergies Allergen Reactions ??? Aspirin Other (See Comments) It makes me bleed. Special Dietary Requirements: no There is no height or weight on file to calculate BMI. Medication Reconciliation Discrepancies (compared to [facility] med list) -He reports that the [...] care discussed, reminder to refill or pickle maker medication discussed, timing of medications discussed, referral needs [...] care discussed, reminder to refill or pickle maker medication discussed, timing of medications discussed, referral needs discussed Treatment Outcomes 01/16/2020 1414 Disease progression: Stable Reviewed in detail with [...] Assessment: Does the patient have a primary manager respiratory care? no Does the patient have an emergency [...] Amount: $3.00 Day Supply: 28 Date Needed: 01/28/20 Copay assistance required: no Therapy Assessment: Current [...] Fill: 12 (including today) Pharmacist follow-up needed: No Patient Satisfaction with Care/Services Provided: Yes Informed [...] were made at the appointment and that [facility] is providing recommendations (summary located at top of note) for provider review and follow up. Milli Thapa RPH 01/16/20 2:14 PM documented in this encounter Plan of [...] Milli Carpenter Understanding Action Plan 12:42 PM [facility] EDT) Note: Formatting of this note might be d ifferent from the original. SVR12 through treatment with Epclusa x 2 4 weeks documented as of this encounter Visit Diagnoses Not on filedocumented in this encounter Care Teams Stock Blender Relationship Specialty Start Date End Date Camron Suarez MD PCP - General Family Medicine 05/19/19 [address] [facility] [address] [place] [phone] documented as of this encounter
--- OUTSIDE RECORDS SUMMARY | 2022-07-21 01:18 | XMS_ITS | Encounter Summary ---
:1955 Author Organization [place] [address] Care Team Providers Name Role Phone Camron Suarez MD Primary Care Provider Reason for Visit Reason Onset Date Comments Medication Refill 10/13/2019 Encounter Details Date Type Department Care Team Description 10/13/2019 Refill Gastroenterology at [facility] Mehdi [place], Chronic hepatitis C [facility] Raheem KESS[place] [phone] [facility] [phone] [place], [place] [address] Social History Tobacco Use Types [...] Telephone Encounter - Gila Arriaza RN - 10/13/2019 7:19 AM EST HCV pt ready for Epclusa x 24 weeks: Genotype 3 VL 1,260,443 IU/mL on 05/22/19 Decompensated cirrhosis Not eligible for ribavirin d/t SUYAPA, anxiety, and fear of SEs HIV neg HBcAb neg He spoke with Mynor in clinic Need to d/c pantoprazole, and ok to stay off indefinitely documented in this encounter Plan of Treatment Scheduled Procedures Name Priority Associated Diagnoses Date/Time EGD, UPPER GI ENDOSCOPY Alcoholic cirrhosis, uns pecified whether ascites present Portal hypertension documented as of this encounter Visit Diagnoses Diagnosis Chronic hepatitis C without hepatic coma documented in this encounter Care Teams Medical Assistant Internal Medicine Relationship Specialty Start Date End Date Camron Suarez MD PCP - General Family Medicine 05/19/[address] [place] [phone] documented as of this encounter
--- OUTSIDE RECORDS SUMMARY | 2022-07-21 01:18 | XMS_ITS | Encounter Summary ---
:1955 Author Organization [facility] [place] [address] Care Team Providers Name Role Phone Camron Suarez MD Primary Care Provider Encounter Details Date Type Department Care Team Description 11/10/2019 Orders Only Gastroenterology at [facility] Mehdi [place] Chronic hepatitis C [facility] [place] [phone] [facility] [phone] [place] [address] Social History Tobacco Use Types Packs/Day Years [...] Milli Carpenter, Understanding Action Plan 12:42 PM [facility] EDT) Note: Formatting of this note might be d ifferent from the original. SVR12 through treatment with Epclusa x 2 4 weeks documented as of this encounter Visit Diagnoses Diagnosis Chronic hepatitis C without hepatic coma documented in this encounter Care Teams Service Rig Operator Relationship Specialty Start Date End Date Camron Suarez MD PCP - General Family Medicine 05/19/[address] [place] [phone] documented as of this encounter
--- OUTSIDE RECORDS SUMMARY | 2022-07-21 01:18 | XMS_ITS | Encounter Summary ---
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 [facility] Embolization 11/7/19 -Imaging: Initial: 07/14/2019 MRI abdomen IMPRESSION 1. ??Large mass in the anterior left hepatic lobe, LR-5 (definitely hepatocellular carcinoma). 2. ??Cirrhosis and stigmata of portal hypertension including gastric/splenic varices. Current: 09/04/19 CT Abdomen IMPRESSION 1. Lesion 1: Segment 4, site of prior embolization, LR-TR nonviable 2. Lesion 2: Segment 7/8, 14 mm, LR-3 3. Hepatic cirrhosis with stigmata of portal hypertension. ?? AFP value: Tissue: Patient Characteristics: Current Child's Score: Current MELD Score: Pertinent Labs: see eDH Discussion / Recommendations of the Board: Patient has not wanted treatment of his varices or Hep C. Dr. Bledsoe will have discussion with him about future treatment options. Plan to perform MRI in November as a 3 month follow up. Conference Attendees: Ninoska Woodall, Lan, Rakan Carney, Ab Sewell, Surya PA, Sergio Sanders APRN, RN, CLAU Mak, Jesús [place] *These are recommended next steps based on past studies and information available here. Specific treatment to be undertaken must ultimately be determined on an individual patient and those involved in the treatment plan. Aida Mak RN Liver Tumor & Organ [facility] Division of Gastroenterology and Hepatology [facility] documented in this encounter Plan of Treatment Scheduled Procedures Name Priority Associated Diagnoses Date/Time EGD, UPPER GI ENDOSCOPY Alcoholic cirrhosis, uns pecified whether ascites present Portal hypertension documented as of this encounter Visit Diagnoses Not on filedocumented in this encounter Care Teams Jewel Waxer Relationship Specialty Start Date End Date Camron Suarez MD PCP - General Family Medicine 05/19/[address] [place] [phone] documented as of this encounter
--- OUTSIDE RECORDS SUMMARY | 2022-07-21 01:18 | XMS_ITS | Encounter Summary ---
:1955 Author Organization [facility] [place] [address] Care Team Providers Name Role Phone Camron Suarez MD Primary Care Provider Encounter Details Date Type Department Care Team Description 08/04/2019 Telephone [facility]enterology at [facility] Sherrill [facility] [place] [phone] Social History Tobacco Use Types Packs/Day [...] on filedocumented in this encounter Care Teams Boat Dock Operator Relationship Specialty Start Date End Date Camron Suarez MD PCP - General Family Medicine 05/19/[address] [phone] documented as of this encounter
--- OUTSIDE RECORDS SUMMARY | 2022-07-21 01:19 | XMS_ITS | Encounter Summary ---
:1955 Author Organization [facility] [place] [address] Care Team Providers Name Role Phone Camron Suarez MD Primary Care Provider Encounter Details Date Type Department Care Team Description 07/17/2019 Telephone Gastroenterology at [facility] Mehdi London [place] [address] [place] [address] [place] [address] [phone] (Wo rk) Social History Tobacco Use Types [...] Telephone Encounter - Mehdi London PA - 07/17/2019 2:47 PM EDT I left a M for Mr. Henry to discuss recommendations from Sunday's liver tumor conference. Asked that he return call to GI main line and I would like to speak with him. DG documented in this encounter Plan of Treatment Scheduled Procedures Name Priority Associated Diagnoses Date/Time EGD, UPPER GI ENDOSCOPY Alcoholic cirrhosis, uns pecified whether ascites present Portal hypertension documented as of this encounter Visit Diagnoses Not on filedocumented in this encounter Care Teams Gusset Folder Relationship Specialty Start Date End Date Camron Suarez MD PCP - General Family Medicine 05/19/[address] [place] [address] [address] [place] [address] documented as of this encounter
--- OUTSIDE RECORDS SUMMARY | 2022-07-21 01:19 | XMS_ITS | Encounter Summary ---
:1955 Author Organization [facility] [place] [address] Care Team Providers Name Role Phone Camron Suarez MD Primary Care Provider Reason for Referral Diagnostic Test (Routine) - Closed Specialty Diagnoses / Procedures Referred By Contact Refer red To Contact Radiology Diagnoses Decompensated hepatic cirrhosis Abnormal CT of the abdomen Mehdi London PA [facility] Rad Mri Procedures MRI Abdomen wwo Contrast (Generic) [facility] [place] [address] [place] [address] Referral ID Status Reason Start Date Expiration Date Visits V isits Requested Authorized [id number] Closed Specialty 1 1 Service Requested Encounter Details Date Type Department Care Team Description 06/26/2019 Telephone Gastroenterology at [facility] Mehdi London PA [facility] [place] [address] [place] [address] [phone] (Wo rk) Social History Tobacco Use Types [...] Telephone Encounter - Mehdi London PA - 06/26/2019 5:49 PM EDT Called Mr. Henry to discuss the followin. He needs CBC repeated locally. STAT order has been faxed to his local medical center. He will tryto go tomorrow 2. He should re-start the iron supplement. 3. After discussing his case with the liver team, we are recommending he get an MRI of the abdomen to compare to his outside CT scan in March that showed a pronounced area in the left liver lobe, as well as a possible lesion in his left kidney. Reassured by normal AFP, but want to be sure there are no lesions concerning for HCC prior to starting HCV treatment. He's had an MRI previously for a tendon rupture, and states he was very claustrophobic with this. He is willing to have this done if he has oral sedation, but would really like to be able to drive himself to the appointment rather than rely onhis brother for transportation. I told him that a spares scheduler will contact him and give him instructions on whether he will need a school bus driver after the MRI. I will then see him the same day to discuss results, HCV treatment process in more detail, as well as starting on a NSBB. Looks like varices were eradicated with EGD on 06/24, so we can stop the PPI prior to treating his HCV as well. DG documented in this encounter Plan of Treatment Scheduled Procedures Name Priority Associated Diagnoses Date/Time EGD, UPPER GI ENDOSCOPY Alcoholic cirrhosis, uns pecified whether ascites present Portal hypertension documented as of this encounter Results MRI Abdomen wwo Contrast (Generic) (07/14/2019 9:04 AM EDT) Anatomical Region Laterality Modality Abdomen Magnetic Resonance Specimen (Source) Anatomical Location Collection Method / Collectio n Time Received Time / Laterality Volume Impressions 07/14/2019 11:46 AM EDT 1. ??Large mass in the anterior left hepatic lobe, LR-5 (definitely hepatocellular carcinoma). 2. ??Cirrhosis and stigmata of portal hy pertension including gastric/splenic varices. LI-RADS Categories: LR-TIV = Tumor in vein [...] documentation are a vailable online at https://www.acr.org/Clinical-Resources/R bhsuetwl-ibf-Gald-Systems/LI-RADS. This report utilizes LI-RADS version 2018. Thank you for letting us participate in the care of this patient. For questions regarding this report, please contact e number below. ? Narrative 07/14/2019 11:46 AM EDT EXAMINATION: MRI ABDOMEN WWO CONTRAST (GENERIC) CLINICAL HISTORY: Decompensated cirrhosi s with recent GI bleed, [facility] CT in March noting pronounced region in left lobe crockett spicious for possible hepatic mass, also possible lesion in left kidney TECHNIQUE: MRI of the abdomen was perfor med with images obtained prior to and following the intravenous administration of 18ml of Dotarem using the dynamic liver protocol. COMPARISONS: Noncontrast CT of the abdom en and pelvis 04/19/19 FINDINGS: Prior hepatic interventions: None. Liver Morphology: Nodular contour. Lacel jordana T2 signal and enhancement pattern suggestive of fibrosis. Focal hepatic lesions: Yes Lesion 1: Bulging the contour of segment 2, series 7 image 22 Size: 55mm Enhancement: Intrinsically T1 hyperinten se. Signal intensity increases by 50% immediately after contrast administratio n consistent with arterial phase hyperenhancement. Washout or pseudocapsule: Pseudocapsule present. No washout. Ancillary features: Mosaic architecture Change from prior: Not applicable LI-RADS: LR-5 Scattered nonenhancing cysts in the righ t lobe measuring up to 1.6 cm, LR-1. Portal Vein: Widely Patent. Varices: Gastric and splenic Ascites: Trace Spleen: Normal size, no lesions. Bile ducts: Nondilated. Gallbladder: Few stones in the dependent gallbladder lumen. Normal caliber wall. Pancreas: Normal. Adrenals: Normal. Kidneys: 6.3 cm right interpolar simple cyst. 0.9 cm left upper pole nonenhancing lesion is intrinsically T1 hyperintense, consistent with hemorrhagic or proteinaceous cyst. No crockett spicious lesions or hydronephrosis. Aorta: No aneurysm. Lymph nodes: No enlarged lymph nodes. Bowel: Nondilated, no inflammatory ellsworth es. Marrow Signal: Normal. Procedure Note Kishan Parra MD - 07/14/2019Format ting of this note might be different from the original. EXAMINATION: MRI ABDOMEN WWO CONTRAST (G ENERIC) CLINICAL HISTORY: Decompensated cirrhosi s with recent GI bleed, [facility] CT in March noting pronounced region in left lobe crockett spicious for possible hepatic mass, also possible lesion in left kidney TECHNIQUE: MRI of the abdomen was perfor med with images obtained prior to and following the intravenous administration of 18ml of Dotarem using the dynamic liver protocol. COMPARISONS: Noncontrast CT of the abdom en and pelvis 04/19/19 FINDINGS: Prior hepatic interventions: None. Liver Morphology: Nodular contour. Lacel jordana T2 signal and enhancement pattern suggestive of fibrosis. Focal hepatic lesions: Yes Lesion 1: Bulging the contour of segment 2, series 7 image 22 Size: 55mm Enhancement: Intrinsically T1 hyperinten se. Signal intensity increases by 50% immediately after contrast administratio n consistent with arterial phase hyperenhancement. Washout or pseudocapsule: Pseudocapsule present. No washout. Ancillary features: Mosaic architecture Change from prior: Not applicable LI-RADS: LR-5 Scattered nonenhancing cysts in the righ t lobe measuring up to 1.6 cm, LR-1. Portal Vein: Widely Patent. Varices: Gastric and splenic Ascites: Trace Spleen: Normal size, no lesions. Bile ducts: Nondilated. Gallbladder: Few stones in the dependent gallbladder lumen. Normal caliber wall. Pancreas: Normal. Adrenals: Normal. Kidneys: 6.3 cm right interpolar simple cyst. 0.9 cm left upper pole nonenhancing lesion is intrinsically T1 hyperintense, consistent with hemorrhagic or proteinaceous cyst. No crockett spicious lesions or hydronephrosis. Aorta: No aneurysm. Lymph nodes: No enlarged lymph nodes. Bowel: Nondilated, no inflammatory ellsworth es. Marrow Signal: Normal. IMPRESSION 1. Large mass in the anterior left hepat ic lobe, LR-5 (definitely hepatocellular carcinoma). 2. Cirrhosis and stigmata of portal hype rtension including gastric/splenic varices. LI-RADS Categories: LR-TIV = Tumor in vein [...] documentation are a vailable online at https://www.acr.org/Clinical-Resources/R wdfmudxq-sqm-Fmwx-Systems/LI-RADS. This report utilizes LI-RADS version 2018. Thank you for letting us participate in the care of this patient. For questions regarding this report, please contact th e number below. Jia Bledsoe MD IMG MRI ORDERABLES documented in this encounter Visit Diagnoses Diagnosis Decompensated hepatic cirrhosis Abnormal CT of the abdomen Nonspecific (abnormal) findings on radio logical and other examination of abdominal area, including retroperitoneum Decompensated hepatic cirrhosis Abnormal CT of the abdomen Nonspecific (abnormal) findings on radio logical and other examination of abdominal area, including retroperitoneum documented in this encounter Care Teams Riprap Placer Relationship Specialty Start Date End Date Camron Suarez MD PCP - General Family Medicine 05/19/[address] [address] documented as of this encounter
--- OUTSIDE RECORDS SUMMARY | 2022-07-21 01:19 | XMS_ITS | Encounter Summary ---
:1955 Author Organization [facility] [place] [address] Care Team Providers Name Role Phone Camron Suarez MD Primary Care Provider Reason for Referral Diagnostic Test (Routine) - Specialty Diagnoses / Procedures Referred By Contact Refer red To Contact Radiology Diagnoses Hepatocellular carcinoma Mehdi London PA [facility] Rad Ct Scan Procedures CT Chest wo Contrast (Generic) [facility] [place] [address] [place] [address] Referral ID Status Reason Start Date Expiration Visits Visits Date Requested Authorized [id number] Specialty 07/24/2019 07/23/2020 1 1 Service Requested Encounter Details Date Type Department Care Team Description 07/24/2019 Orders Only Gastroenterology at [facility] Mehdi London Hepatocellular [facility] [place] [address] [facility] [phone] [place], [place] [address] Social History Tobacco Use Types Packs/Day Years [...] hypertension documented as of this encounter Results CT Chest wo Contrast (Generic) (09/04/2019 11:11 [...] documentation are a vailable online at https://www.acr.org/Clinical-Resources/R eanfufxb-utz-Zydd-Systems/LI-RADS. This report utilizes LI-RADS version 2018. I have personally reviewed the image(s) and the resident's interpretation and agree with the findings, Zesu lundy at 09/04/2019 2:43 PM Thank you for letting us participate in the care of this patient. For questions regarding this report, please contact e number below. ? Electronically signed by: Zeus rosenberg, [facility] ([phone]), at 09/04/2019 2:43 PM Narrative 09/04/2019 2:43 PM EST EXAMINATION: CT [...] MRI of the Abdomen dated 07/14/2019 and Christoval Hepatic Embolization dated 07/31/2019. FINDINGS: CT of [...] the Abdomen: Prior hepatic interventions: * ??07/31/2019: Christoval embolization of lef t hepatic lobe from [...] MRI of the Abdomen dated 07/14/2019 and Christoval Hepatic Embolization dated 07/31/2019. FINDINGS: CT of [...] the Abdomen: Prior hepatic interventions: * 07/31/2019: Christoval embolization of left hepatic lobe from segment [...] documentation are a vailable online at https://www.acr.org/Clinical-Resources/R fylsetjy-ura-Dknd-Systems/LI-RADS. This report utilizes LI-RADS version 2018. I have personally reviewed the image(s) and the resident's interpretation and agree with the findings, Zeus lundy at 09/04/2019 2:43 PM Thank you for letting us participate in the care of this patient. For questions regarding this report, please contact e number below. Electronically signed by: Zeus rosenberg, [facility] ([phone]), at 09/04/2019 2:43 PM Jia Bledsoe MD IMG CT ORDERABLES documented in this encounter Visit Diagnoses Diagnosis Hepatocellular carcinoma Malignant neoplasm of liver, primary Hepatocellular carcinoma Malignant neoplasm of liver, primary documented in this encounter Care Teams Manager Embalmer Funeral Director Relationship Specialty Start Date End Date Camron Suarez MD PCP - General Family Medicine 05/19/[address] [phone] documented as of this encounter
--- OUTSIDE RECORDS SUMMARY | 2022-07-21 01:19 | XMS_ITS | Encounter Summary ---
:1955 Author Organization [facility] [place] [address] Care Team Providers Name Role Phone Camron Suarez MD Primary Care Provider Encounter Details Date Type Department Care Team Description 06/24/2019 Anesthesia Event Gastroenterology at [facility] Raymon Heller, [facility] [place] [address] [facility] [phone] DR ANESTHESIOLOGY [place], [place] [address] (Wo rk) Anesthesia Record Procedure Summary Procedure Name Responsible Anesthesia Start Anesthesia Stop Time Anesthesiologist Time EGD, UPPER GI Raymon Heller MD 06/24/19 1557 06/24/19 1611 ENDOSCOPY (N/A Trunk) Events Date Time Event Comment 06/24/2019 1556 1557 AN Verify 1557 Start 1557 An Start Data 1601 An Induction 1604 Anesthesia Ready 1605 Procedure Start 1609 Procedure Stop 1611 an stop data 1611 Recovery or ICU Handoff Patient care was transferred to the destination unit staff after review of the patient's medica l history, current anesthetic/surgi ce status and plan, according to the Provider Handoff Checklist. 1611 Stop Name Total IV Lidocaine 100 mg Propofol 100 mg Propofol INF 134.7 mg lactated ringers infusion 100 mL Agents Name O2 Air N2O O2 Auxiliary Flowmeter 1 Blood No blood administrations on file. Lines, Drains, and Airways Type Details Placement Removal PIV 06/24/19; 1550; cephalic 06/24/19 1550 by Ann-Marie leone, 06/24/19 1641 by William vein (lateral side of arm), CLAU Miller RN right; wemn-opx-dzzale catheter system; 20 gauge; Anna Adair RN; distraction, tolerated well, appears comfortable; 0; no longer indicated, removed per policy/procedure; 06/24/19; 1641 documented in this encounter Social History Tobacco [...] encounter OR Notes Anesthesia Postprocedure Evaluation - Raymon Heller MD - 06/24/2019 6:07 PM EDT Department of Anesthesiology Post-procedure Note Patient: Benjamín Henry Procedure Summary Date: 06/24/19 Room / Location: [facility] ENDO 2 / [facility]COPY Anesthesia Start: 1557 Anesthesia Stop: 1611 Procedure: EGD, UPPER GI ENDOSCOPY (N/A Trunk) Diagnosis: (He should return for repeat banding ??in4-6 weeks. from 05/22/19) Surgeon: Butch Parker MD Responsible Provider: Raymon Hleler MD Anesthesia Type: MAC ASA Status: 3 All Anesthesia Providers: Anesthesiologist: Raymon Heller MD COLLEGE RECRUITER: Adolfo Zeng CRNA Vitals Value Taken Time BP 105/66 06/24/2019 4:40 PM Temp Pulse Resp 16 06/24/2019 4:40 PM SpO2 98 % 06/24/2019 4:41 PM Pain Level 0 06/24/2019 4:40 PM Vitals shown include unvalidated device data. Patient Location: PACU/[facility] Level of Consciousness: Conscious but Sleepy Pain Management: Satisfactory Analgesia PONV: None Cardiovascular Status: At Baseline Respiratory Status: Postoperative Fluid Status: Intravascular EUvolemia Possible Anesthetic Complications: NONE apparent at time of evaluation Final Primary Anesthesia Type: MAC (The anesthetic type performed was the same as planned.) Comments: Anesthesia Preprocedure Evaluation - Raymon Heller MD - 06/24/2019 3:29 PM EDT Pre-Anesthesia Evaluation for: Benjamín Henry a 64 y.o. male. Procedure(s): EGD, UPPER GI ENDOSCOPY Patient Active Problem List Diagnosis ??? UGIB (upper gastrointestinal bleed) ??? Acute blood loss anemia ??? Cirrhosis, alcoholic ??? Esophageal varices Past Medical History: Diagnosis Date ??? Alcohol abuse ??? Cirrhosis, alcoholic ??? Esophageal varices ??? HTN (hypertension) Past Surgical History: Procedure Laterality Date ??? PRO UPPER GI ENDOSCOPY, DIAGNOSTIC N/A 04/20/2019 EGD, UPPER GI ENDOSCOPY performed by Jamie Avalos MD at [facility] ENDOSCOPY ??? PRO UPPER GI ENDOSCOPY, DIAGNOSTIC N/A 05/22/2019 EGD, UPPER GI ENDOSCOPY performed by Jia Bledsoe MD at [facility] ENDOSCOPY ??? PRO UPPER GI ENDOSCOPY, LIGAT VARIX 04/20/2019 EGD, W BAND LIGATION OF ESOPHAGEAL/GASTRIC VARICES performed by Jamie Avalos MD at [facility] ENDOSCOPY Social History Tobacco Use ??? Smoking status: Former Smoker Packs/day: 0.50 Years: 13.00 Pack years: 6.50 Types: Cigarettes, Pipe Last attempt to quit: 2000 Years since quittin.7 ??? Smokeless tobacco: Never Used Substance Use [...] ASA 3 MAC, with a(n) intravenous induction Addendum 06/24/2019 (MD Arron): 64yo with cirhosis, esophageal varices, here for repeat banding. Feels well. No n/v/regurg. No bleeding. Pt requests to proceed. Region - Other Informed Consent: Anesthetic plan and risks discussed with patient. Plan discussed with COLLEGE RECRUITER. PAT Clinic Note documented in this encounter [...] Rate Site lactated ringers infusion New Bag 06/24/2019 4:01 PM EDT 100 mL/hr, Intravenous, CONTINUOUS, Starting on Sun06/24/19 at 1600, Until Sun06/24/19 at 1641, Endoscopy (Day of Procedure) New Bag 06/24/2019 3:54 PM EDT 100 mL/hr 100 mL/hr lidocaine (PF) (XYLOCAINE) 100 mg/5 mL (2 %) Given 09/2018 4:01 PM EDT 100 mg injection PRN, Starting on Sun06/24/19 at 1601, Until Sun06/24/19 at 1611, Anesthesia Intra-op, Routine propofol (DIPRIVAN) 10 mg/mL bolus injection Given 09/2018 4:01 PM EDT 100 mg (Anesthesia) PRN, Starting on Sun06/24/19 at 1601, Until Sun06/24/19 at 1611, Anesthesia Intra-op propofol (DIPRIVAN) infusion New Bag 06/24/2019 4:01 PM 150 mcg/kg/min 80.8 mL/hr CONTINUOUS PRN, Starting on EDT Sun06/24/19 at 1601, Until Sun19 at 1611, Anesthesia Intra-op, Routine documented in this encounter Care Teams Manager Of Software Relationship Specialty Start Date End Date Camron Suarez MD PCP - General Family Medicine 05/19/[address] [place] [phone] documented as of this encounter
--- OUTSIDE RECORDS SUMMARY | 2022-07-21 01:19 | XMS_ITS | Encounter Summary ---
:1955 Author Organization [facility] [place] [address] Care Team Providers Name Role Phone Camron Suarez MD Primary Care Provider Encounter Details Date Type Department Care Team Description 05/22/2019 Surgery [place] [facility] Bledsoe MD EGD, UPPER GI [facility] [place] [address] [address] [phone] GASTROENTEROLOGY [place], [place] [address] Social History Tobacco Use Types [...] Sign Reading Time Taken Comments Blood Pressure 118/77 05/22/2019 1:00 PM EDT Pulse 71 05/22/2019 11:59 AM EDT Temperature 36.6 ??C (97.9 ??F) 05/22/2019 11:59 AM EDT Respiratory Rate 18 05/22/2019 1:00 PM EDT Oxygen Saturation 100% 05/22/2019 1:00 PM EDT Inhaled Oxygen Concentration - - Weight - - Height - - Body Mass Index - - documented in this encounter Discharge Instructions AttachmentsThe following attachments cannot be sent through Care Everywhere.EGD (Upper Endoscopy): Post-op (Vincentian)documented in this encounter Medications at Time of Discharge Medication Sig Dispensed Refills Start Date End Date triamterene-hydrochloroth Take 1 capsule by 0 iazide (DYAZIDE) 37.5-25 mouth every morning. mg Capsule CEROVITE SENIOR Tablet 0 05/15/2019 ferrous sulfate 325 mg 0 05/15/2019 (65 mg iron) Tablet folic acid (FOLVITE) 1 mg Take 1 tablet by 90 tablet 3 03/2607/17/2019 Tablet mouth daily. thiamine (THIAMINE) Take 1 tablet by 30 tablet 3 04/22/2019 10/17/2020 mouth daily. pantoprazole (PROTONIX) Take 1 tablet by 90 tablet 3 201811/07/2019 40 mg Tablet, Delayed mouth daily. Release (E.C.) documented as of this encounter Plan of Treatment Scheduled Procedures Name Priority Associated Diagnoses Date/Time EGD, UPPER GI ENDOSCOPY Alcoholic cirrhosis, uns pecified whether ascites present Portal hypertension documented as of this encounter Procedures Procedure Name Priority Date/Time Associated Diagnosis Comme nts VARICEAL BANDING 05/22/2019 12:30 PM 4 wk f/u banding EDT EGD, UPPER GI 05/22/2019 12:30 PM 4 wk f/u banding ENDOSCOPY EDT UPPER GI ENDOSCOPY Routine 05/22/2019 12:10 PM Re sults for this EDT procedure are i n the results section. documented in this encounter Results UPPER GI ENDOSCOPY (05/22/2019 12:10 PM EDT) Component Value Ref Test Analysis Performed At [facility] Range Method Time Signature UPPER GI [facility] ENDOSCOPY Endoscopy Procedure Date: 05/22/2019 12:10 PM ? Patient Name: Benjamín Henry ? Date of : 1955 ? Age: 64 ? Order #: [id number] ? Instrument Name: [id number] ? Procedure: ? Upper GI endoscopy Indications: ? 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 Jia Bledsoe MD, Radu Concepcion ? Roldan Fox, Level Vial Marker Referring : ?Camron Suarez MD Medicines: ? Propofol per Anesthesia Complications: ? [...] and informed consent was obta ined. ? The procedure, indications, b enefits, ? risks and alternatives were e xplained ? to the patient. Specifically ? discussed were potential ? complications including, but not ? limited to, bleeding, perfora tion, ? infection, missing a cancer, and ? adverse medication reactions. The ? Endoscope was introduced thro [facility] the ? mouth, [facility] ? [facility]. The patient tole rated ? the procedure well. The upper GI ? endoscopy was accomplished wi out ? difficulty. The patient david ated the ? procedure well. ? Findings: ? Large (> 5 mm) varices were found in the lower third ? of the esophagus. Two bands were successfully placed ? with complete eradication, resulting in deflation of ? varices. There was no bleeding during the maneuver. ? Mild portal hypertensive gastropathy was found in the ? gastric body. ? The examined duodenum was normal. ? Moderate Sedation: ? Not applicable - See Anesthesia documentation Impression: ?- Large (> 5 mm) esophageal varice s. ? Completely eradicated. Banded . ? - Portal hypertensive gastrop athy. ? - Normal examined duodenum. ? - No specimens collected. Recommendation: ?The patient should be started on a ? non selective beta barbara fo r ? prevention of variceal bleedi ng such ? as Nadolol 20mg/day or Carvid ilol ? 6.25mg/day. ? He should continue protonix t ill ? banding protocol completed. ? Hep C antibody positive shorenetta be ? followed up by checking hep C viral ? load and genotype. This will be ? ordered for today. ? He reports a history of ? hemochromatosis, will get lab s to ? confirm this as well. ? He should return for repeat b anding ? in 4-6 weeks. ? We will try to arrange an off ice ? visit for the same day to [facility] up ? on the above recommendations and labs. ? Attending Participation: ? I personally performed the entire procedure. ? I was present during the intraservice time as ? documented by the sedation RN. ? Jia Bledsoe MD 05/22/2019 12:52:36 PM This report has been signed electronically. Number of Addenda: 0 Note Initiated On: 05/22/2019 12:10 PM Specimen (Source) Anatomical Collection Method Collection Time Re ceived Time Location / / Volume Laterality 05/22/2019 12:10 PM EDT Camron Suarez MD GENERAL SURGICAL ORDERABLES Performing Organization Address City/State/ZIP Code Phon e Number [facility] documented in this encounter Visit Diagnoses Not on filedocumented in this encounter Care Teams Patcher Helper Relationship Specialty Start Date End Date Camron Suarez MD PCP - General Family Medicine 05/19/[address] [place] [phone] documented as of this encounter
--- OUTSIDE RECORDS SUMMARY | 2022-07-21 01:19 | XMS_ITS | Encounter Summary ---
:1955 Author Organization [facility] [place] [address] Care Team Providers Name Role Phone Camron Suarez MD Primary Care Provider Encounter Details Date Type Department Care Team Description 05/22/2019 Anesthesia Event Gastroenterology at [facility] Frank Mejia MD [facility] [address] [facility] Erika Carpio CRNA [facility] [place] [address] [place] [address] Anesthesia Record Procedure Summary Procedure Name Responsible Anesthesia Start Anesthesia Stop Time Anesthesiologist Time EGD, UPPER GI Frank Mejia MD 05/22/19 1232 05/22/19 1248 ENDOSCOPY (N/A Trunk) Events Date Time Event Comment 05/22/2019 1220 1230 AN Verify 1232 Start 1232 An Start Data 1232 An Induction 1235 Anesthesia Ready 1237 Procedure Start 1245 Procedure Stop 1247 an stop data 1248 Recovery or ICU Handoff Patient care was transferred to the destination unit staff after review of the patient's medica l history, current anesthetic/surgi ce status and plan, according to the Provider Handoff Checklist. 1248 Stop Name Total IV Lidocaine 100 mg Propofol INF 303.6 mg Lactated Ringers 100 mL Agents Name O2 Auxiliary Flowmeter 1 Blood No blood administrations on file. Lines, Drains, and Airways Type Details Placement Removal PIV 05/22/19; 1222; metacarpal 05/22/19 1222 by , 05/22/19 1332 by Paulino, vein (top of hand), right; CLAU Harper RN [id number] catheter system; 20 gauge, 1 in length; Zoey RN; complained of discomfort; 0; 05/22/19; 1332 documented in this encounter Social History Tobacco [...] encounter OR Notes Anesthesia Postprocedure Evaluation - Frank Mejia MD - 05/23/2019 9:23 AM EDT Department of Anesthesiology Post-procedure Note Patient: Benjamín Henry Procedure Summary Date: 05/22/19 Room / Location: [facility] ENDO 4 / [facility] ENDOSCOPY Anesthesia Start: 1232 Anesthesia Stop: 1248 Procedures: EGD, UPPER GI ENDOSCOPY (N/A Trunk) VARICEAL BANDING (N/A ) Diagnosis: (4 wk f/u banding) Surgeon: Jia Bledsoe MD Responsible Provider: Frank Mejia MD Anesthesia Type: MAC ASA Status: 3 All Anesthesia Providers: Anesthesiologist: Frank Mejia MD SOCIAL SERVICE ASSISTANT: Erika Abbott CRNA Vitals Value Taken Time BP 122/88 05/22/2019 1:15 PM Temp Pulse Resp 18 05/22/2019 1:15 PM SpO2 100 % 05/22/2019 1:16 PM Pain Level 5 05/22/2019 1:15 PM Vitals shown include unvalidated device data. Patient Location: PACU/[facility] Level of Consciousness: Awake and Alert Pain Management: Satisfactory Analgesia PONV: None Cardiovascular Status: At Baseline Respiratory Status: At Baseline Postoperative Fluid Status: Intravascular EUvolemia Possible Anesthetic Complications: NONE apparent at time of evaluation Final Primary Anesthesia Type: MAC (The anesthetic type performed was the same as planned.) Comments: Anesthesia Preprocedure Evaluation - Frank Mejia MD - 05/22/2019 12:13 PM EDT Images from the original note were not included. Pre-Anesthesia Evaluation for: Benjamín Henry a 64 [...] ENDOSCOPY performed by Jamie Avalos MD at [facility] ENDOSCOPY ??? PRO UPPER GI ENDOSCOPY, LIGAT VARIX 04/20/2019 EGD, W BAND LIGATION OF ESOPHAGEAL/GASTRIC VARICES performed by Jamie Avalos MD at [facility] ENDOSCOPY Social History Tobacco Use ??? Smoking status: Former Smoker Packs/day: 0.50 Years: 13.00 Pack years: 6.50 Types: Cigarettes, Pipe Last attempt to quit: 2001 Years since quittin.6 ??? Smokeless tobacco: Never Used Substance Use Topics ??? Alcohol use: Yes Frequency: 4 or more times a week Drinks per session: 3 or 4 Binge frequency: Daily or almost daily Comment: half a fith of wiskey daily last drink 04-19-19 Social History Substance and Sexual Activity Drug Use Not on file Allergies Allergen Reactions ??? Aspirin Other (See Comments) It makes me bleed. Medications: MAR and/or home medications have been reviewed. Physical Exam: Most Recent Vitals: 05/22/19 1159 BP: 120/83 Pulse: 71 Temp: 36.6 ??C (97.9 ??F) SpO2: 99% There is no height or weight on file to calculate BMI. Airway Assessment: Mallampati: II TM distance: >3 FB Neck ROM: full Cardiovascular Assessment: cardiovascular exam normal Pulmonary Assessment: pulmonary exam normal Dental Assessment: Misc Assessment: IV access: Peripheral line Anesthesia Plan: ASA 3 MAC, with a(n) intravenous induction 64 y.o. male with hx of alcoholic cirrhosis, previous variceal bleeds and current alcohol abuse herefor EGD Anesthetic History: GA/Grade One view for prior upper endoscopy. Allergies reviewed NPO OK Exercise tolerance: Greater than 4 METS EKG: pending Echocardiogram: none on file NPO Status: appropriate Anesthetic Plan: MAC Region - Other Informed Consent: Anesthetic plan and risks discussed with patient. Use of blood products discussed with patient who consented to blood products. Plan discussed with SOCIAL SERVICE ASSISTANT. PAT Clinic Note documented in this encounter [...] Rate Site lactated ringers infusion New Bag 05/22/2019 12:32 PM EDT CONTINUOUS PRN, Starting on Vy 05/22/19 at 1232, Until Vy 05/22/19 at 1248, Anesthesia Intra-op lidocaine (PF) (XYLOCAINE) 100 mg/5 mL (2 %) Given 12:32 PM EDT 100 mg injection PRN, Starting on Vy 05/22/19 at 1232, Until Vy 05/22/19 at 1248, Anesthesia Intra-op, Routine propofol (DIPRIVAN) Rate/Dose 05/22/2019 12:43 300 mcg/kg/min 165.6 mL/hr infusion Change PM EDT CONTINUOUS PRN, Starting on Vy 05/22/19 at 1233, Until Vy 05/22/19 at 1248, Anesthesia Intra-op, Routine Rate/Dose Change 05/22/2019 12:38 PM EDT 200 mcg/kg/min 110.4 mL/hr Rate/Dose Change 05/22/2019 12:35 PM EDT 500 mcg/kg/min 276 mL/hr documented in this encounter Care Teams National Van Truck Driver Relationship Specialty Start Date End Date Camron Suarez MD PCP - General Family Medicine 05/19/19 [address] [facility] [address] [place] [phone] documented as of this encounter
--- OUTSIDE RECORDS SUMMARY | 2022-07-21 01:19 | XMS_ITS | Encounter Summary ---
:1955 Author Organization [facility] [place] [address] Care Team Providers Name Role Phone Camron Suarez MD Primary Care Provider Reason for Referral Diagnostic Test (Routine) - Closed Specialty Diagnoses / Procedures Referred By Contact Refer red To Contact Radiology Diagnoses Hepatocellular carcinoma Zeus Berger [facility] Rad Procedures IR Liver Kearsarge Embolization [facility] [place] [address] [place] [address] Referral ID Status Reason Start Date Expiration Date Visits V isits Requested Authorized [id number] Closed Specialty 1 1 Service Requested Encounter Details Date Type Department Care Team Description 07/18/2019 Telephone Radiology at [facility] Zeus Berger MD [facility] [place] [address] [place] [phone] RADIOLOGY DEPT [phone] [place], [place] [address] (Wo rk) Social History Tobacco [...] Telephone Encounter - Zeus Berger MD - 07/18/2019 8:13 AM EDT Images from the original note were not included. PRE-PROCEDURE VIR NOTE: PCP: Camrno Suarez MD Referring Physician: No ref. provider found Planned Procedure: Transarterial embolization of left lobe liver lesions consistent with hepatocellular carcinoma Procedure Indication: Hepatocellular carcinoma Presenting Diagnosis/ Complaint: Benjamín Henry is a 64 y.o. male with alcoholic/Hep C cirrhosis and hepatocellular carcinoma. Consensus of the [facility] Liver Tumor Board was treatment with embolization. I spoke with the patient today by phone/in clinic to discuss our treatment plan. Liver Mass Data: Tumor Found by: surveillance (CT/MRI on 07/14/19) Tumor Characteristics: Lesion #1: Segment 2, 5.5 cm, Li-RADS 5 Vascular invasion: no Extrahepatic disease: none BCLC Stage: B (Intermediate, multinodular, ECOG ), CPT A-B) AFP: 5.6 CPT: A MELD: 10 ECO (Restricted, ability to do light work) Past Medical/Surgical History: Patient Active Problem List Diagnosis Code ??? UGIB (upper gastrointestinal bleed) K92.2 ??? Cirrhosis, alcoholic K70.30 ??? Esophageal varices I85.00 ??? Acute blood loss anemia D62 ??? Chronic hepatitis C without hepatic coma B18.2 Past Medical History: Diagnosis Date ??? Alcohol abuse ??? Cirrhosis, alcoholic ??? Esophageal varices ??? HTN (hypertension) Past Surgical History: Procedure Laterality Date ??? PRO UPPER GI ENDOSCOPY, DIAGNOSTIC N/A 04/20/2019 EGD, UPPER GI ENDOSCOPY performed by Jamie Avalos MD at [facility] ENDOSCOPY ??? PRO UPPER GI ENDOSCOPY, DIAGNOSTIC N/A 05/22/2019 EGD, UPPER GI ENDOSCOPY performed by Jia Bledsoe MD at [facility] ENDOSCOPY ??? PRO UPPER GI ENDOSCOPY, DIAGNOSTIC N/A 06/24/2019 EGD, UPPER GI ENDOSCOPY performed by Butch Parker MD at [facility] ENDOSCOPY ??? PRO UPPER GI ENDOSCOPY, LIGAT VARIX 04/20/2019 EGD, W BAND LIGATION OF ESOPHAGEAL/GASTRIC VARICES performed by Jamie Avalos MD at [facility] ENDOSCOPY Social History and Habits: Social History Socioeconomic History ??? Marital status: Single Spouse name: Not on file ??? Number of children: Not on file ??? Years of education: Not on file ??? Highest education level: Not on file Occupational History ??? Not on file Social Needs ??? Financial resource strain: Not on file ??? Food insecurity: Worry: Not on file Inability: Not on file ??? Transportation needs: Medical: Not on file Non-medical: Not on file Tobacco Use ??? Smoking status: Former Smoker Packs/day: 0.50 Years: 13.00 Pack years: 6.50 Types: Cigarettes, Pipe Last attempt to quit: 2001 Years since quittin.8 ??? Smokeless tobacco: Never Used Substance and Sexual Activity ??? Alcohol use: Yes Frequency: 4 or more times a week Drinks per session: 3 or 4 Binge frequency: Daily or almost daily Comment: half a fith of wiskey daily last drink 04-19-19; 3-4 non alcohol beers daily ??? Drug use: Not Currently ??? Sexual activity: Not on file Lifestyle ??? Physical activity: Days per week: Not on file Minutes per session: Not on file ??? Stress: Not on file Relationships ??? Social connections: Talks on phone: Not on file Gets together: Not on file Attends shinto service: Not on file Active member of club or organization: Not on file Attends meetings of clubs or organizations: Not on file Relationship status: Not on file ??? Intimate partner violence: Fear of current or ex partner: Not on file Emotionally abused: Not on file Physically abused: Not on file Forced sexual activity: Not on file Other Topics Concern ??? Not on file Social History Narrative ??? Not on file Significant Family History: No family history on file. Allergies: Aspirin Medications: Current Outpatient Medications Medication Sig Dispense Refill ??? gabapentin (NEURONTIN) 300 mg Capsule Take 1 capsule by mouth 3 times daily. 90 capsule 12 ??? folic acid (FOLVITE) 1 mg Tablet Take 1 tablet by mouth daily. 90 tablet 3 ??? ferrous sulfate 325 mg (65 mg iron) Tablet ??? pxwidhls-xkf-HN-lycopen-lutein (CENTRUM SILVER MEN) 300-600-300 mcg Tablet Take by mouth. ??? triamterene-hydrochlorothiazide (DYAZIDE) 37.5-25 mg Capsule Take 2 capsules by mouth every morning. ??? thiamine (THIAMINE) Take 1 tablet by mouth daily. 30 tablet 3 ??? pantoprazole (PROTONIX) 40 mg Tablet, Delayed Release (E.C.) Take 1 tablet by mouth daily. 90 tablet 3 Current Outpatient Medications on File Prior to Visit Medication Sig Dispense Refill ??? gabapentin (NEURONTIN) 300 mg Capsule Take 1 capsule by mouth 3 times daily. 90 capsule 12 ??? folic acid (FOLVITE) 1 mg Tablet Take 1 tablet by mouth daily. 90 tablet 3 ??? ferrous sulfate 325 mg (65 mg iron) Tablet ??? sxdhrchy-daq-AK-lycopen-lutein (CENTRUM SILVER MEN) 300-600-300 mcg Tablet Take by mouth. ??? triamterene-hydrochlorothiazide (DYAZIDE) 37.5-25 mg Capsule Take 2 capsules by mouth every morning. ??? thiamine (THIAMINE) Take 1 tablet by mouth daily. 30 tablet 3 ??? pantoprazole (PROTONIX) 40 mg Tablet, Delayed Release (E.C.) Take 1 tablet by mouth daily. 90 tablet 3 No current facility-administered medications on file prior to visit. ROS: TO be done day of procedure Physical Exam: Vitals Office Visit from 07/14/2019 in Gastroenterology at [facility] Weight 95.2 kg (209 lb 12.8 oz) Height 182.9 cm (6') BSA (Calculated - sq m) 2.2 sq meters BMI (Calculated) 28.45 Heart Rate 98 BP 116/77 Patient Position Sitting Labs: Lab Results Component Value Date WBC 3.9 (L) 07/14/2019 HCT 33.0 (L) 07/14/2019 PLATELET 105 (L) 07/14/2019 INR 1.4 07/14/2019 BUN 9 (L) 07/14/2019 CREATININE 0.95 07/14/2019 ALKPHOS 111 07/14/2019 AST 58 (H) 07/14/2019 ALBUMIN 3.5 07/14/2019 BILIDIR 0.7 (H) 04/22/2019 BILITOT 1.0 07/14/2019 ALT 29 07/14/2019 PROT 8.2 (H) 07/14/2019 Prior Imaging: Pathology: none Assessment: Benjamín Henry is a 64 y.o. male with alcoholic/Hep C cirrhosis and hepatocellular carcinoma. He does not want trasplant at this time. We focused on the treatment options at this time. We discussed the regional therapy options of blandembolization, chemo-embolization, and radio-embolization. We discussed the risks of any percutaneous approach (bleeding and infection), and those of any embolization procedure (errant emboli, post-embolic syndrome of fever, nausea, and pain.) We also discussed the palliative nature of this approach and the high likelihood that additional therapeutic embolization or ablation sessions would likely be required. Questions were answered, and the patient would like to proceed with embolization. Of note, the patient may have a replaced left hepatic artery from the left gastric artery. Will plan for moderate sedation. Plan: Kearsarge embolization of left liver lobe lesion Labs to be performed day of procedure: CMP, Hemogram, INR Medication to STOP: none Sedation: Moderate sedation per IR RN protocols Prophylactic antibiotic: Unasyn Additional medications for procedure: lidocaine, dexamethasone, radial cocktail prn Planned access site: possible radial access vs COUNTER TACKER Position: supine Consent: Pending 07/18/2019 documented in this encounter Plan of Treatment Scheduled Procedures Name Priority Associated Diagnoses Date/Time EGD, UPPER GI ENDOSCOPY Alcoholic cirrhosis, uns pecified whether ascites present Portal hypertension documented as of this encounter Results IR Liver Kearsarge Embolization (07/31/2019 3:45 PM EST) Anatomical Region Laterality Modality X-Ray Angiography Specimen (Source) Anatomical Location Collection Method / Collectio n Time Received Time / Laterality Volume Narrative 08/01/2019 4:36 PM EST INTERVENTIONAL RADIOLOGY PROCEDURE NOTE Procedure: 1) US-guided left radial artery access 2) Celiac angiogram 3) SMA angiogram 4) Selective catheterization, angiogram and cone-beam CT of replaced right hepatic artery 5) Sub-selective catheterization and ang iography of posterior left hepatic lobe branch. 6) Kearsarge embolization of hepatic artery branches supplying the left lobe tumor. Indication for Procedure: 64 y.o. male w ith Alcohol / Hepatitis C cirrhosis and hepatocellular carcinoma. Consensus of the [facility] Liver Tumor Board was treatment with embolization. Consent: After discussing risks (includi ng infection, hemorrhage, errant emboli, and allergic reaction), and bene fits, patient consented to the procedure. Method of Sedation: ??Due to the painful nature of the procedure, patient received split doses of intravenous fent anyl and versed from the IR nurse while pulse, pressure, and oxygen satura tion were continuously monitored. 1% lidocaine was used for local analgesi a. Technique: Prior to beginning the proced ure, a standard time out Moment of Truth was performed to confirm all k ey aspects (including the patient's identity, informed consent, me dical record number, allergies, planned procedure and laterality if appr opriate) all of which were correct. The patient received a dose of antibiotics within 30 minutes of the procedure prophylaxis. Maximum sterile technique was used throu ghout the procedure. After sterile preparation, Under real time sonographic guidance, left radial artery was accessed using 21 gauge needle. 0.018 wi re was advanced through needle, which was exchanged for 5 Fr sheath. Rad ial access medications were instilled with hemodilution. The wire an d inner dilator were removed and through this a 0.035 guidewire and 5 Fr Sammi Radial Optitorque 110 cm catheter were advanced. The remaining pr ocedure was performed under fluoroscopic guidance. The catheter and wire combo were advance d retrograde through the radial artery, brachial artery, axillary artery , subclavian artery into the thoracic aorta. ??The descending thoraci c aorta was selected. ??The catheter and wire were advanced into the abdomina l aorta. The celiac trunk was selected. ??Digital subtraction angiogram was performed in the AP and oblique projecti ons. The superior mesenteric artery was selec airam and contrast study performed. Coaxially, a 3 Fr Renegade Hi-Miguel A STR 15 0 cm catheter was advanced with a .018 inch guidewire. The replaced hepati c artery was selected. A contrast study was performed. The catheter and wi re were advanced and the left hepatic artery supplying segment 4 and t he target tumor. ??Digital subtraction angiogram was performed. ??A contrast-enhanced cone beam CT was then performed. A solution of contrast and 100 micron Em bozene particles was prepared (2 ml of 100 micron particles suspended in 1 mL saline and 4 mL Omnipaque 350; total volume 7 mL). Kearsarge embolizat ion with the Embozene solution was then performed through the microcatheter . A total of 7 mL of the solution was used. A solution of contrast and 250 micron Em bozene particles was prepared (2 ml of 250 micron particles suspended in 1 mL saline and 4 mL Omnipaque 350; total volume 7 mL). Kearsarge embolizat ion with the Embozene solution was then performed through the microcatheter until at there was minimal residual tumor blush of the left hepatic lobe tumor. A total of 7 mL of the solution was used. The 3 Fr catheter was the removed and a contrast study performed. The C2 catheter was removed and a left radial a rtery compression bland applied with 12 mL of air. The patient tolerated the procedure well and there were no immediate complications. Medications: see EMR Antibiotic Prophylaxis: Ceftriaxone 1g I V and Flagyl 500mg Contrast: Omnipaque 350 ??50 mL intra-ar terial and Visipaque 70 mL intra-arterial ?? Fluoroscopy Time: ??29.1 minutes EBL: Less than 5 cc Complications: ??No immediate Specimens: N/A Findings: US exam of the left radial artery showed it to be widely patient and normal in size. There is variant hepatic artery anatomy. ??The dominant arterial supply to the liver appears to be replaced from it s conventional location and has its origin from the mid superior mesente pardeep artery. ??This dominant branch divides into a right hepatic artery and a left hepatic artery of which supplies segment 4. ??Additionally there is hypertrophy of the right gastric artery which appears to supply r etrograde flow to the splenic artery via its left gastric artery and a nastomosis. ??There is a replaced segmental left hepatic artery from the l eft gastric artery which supplies segments 2 and 3. ??Lastly, there is int ernal collateralizations between the segment 4 hepatic artery from the re placed SMA origin within the liver to the segment 2/3 segmental artery from the left gastric artery. ?? Retrograde flow from the right gastric a rtery through the anastomosis along the lesser curvature to the left g astric artery raises the possibility of an undiagnosed celiac art jenni stenosis. There is a hyperenhancing tumor within t he left hepatic lobe which is similar in size and location as compared to the recent MRI. ??Dominant arterial supply to the tumor is from seg ment 4 branches. ??There is small contributing arterial supply from the re placed segment 2/3 hepatic artery. With the catheter positioned in the dist al segment 4 hepatic artery, embolic material is seen to pass into th e target tumor. ??After embolization of the dominant segment 4 b ranch, there is reflux of material along the intrahepatic anastomosis into the segment 2/3 vessel and into the small contributing tumor vessels. Impression: Kearsarge embolization of left h epatic lobe tumor. Plan/Disposition: 1) To Angio/IR recovery room, may transf er/discharge to Floor/Short Stay Unit when meets criteria. 2) LEFT radial artery compression bland monitoring per protocol 3) Follow-up at GI clinic in 1 month (sc heduled) 4) Follow-up chest/abdomen CT in 1 month (ordered) Motor Vehicle Assembler(s): Resident/Fellow: ??Raheem Nichols Attending: Zeus Berger MD Procedure/Teaching Attestation: I was pr esent and scrubbed for the entire procedure. Moderate Sedation Attestation: I was pre sent during the intraservice time as documented by the IR nurse. 08/01/2019 Zeus Berger MD IMG IR ORDERABLES documented in this encounter Visit Diagnoses Diagnosis Hepatocellular carcinoma Malignant neoplasm of liver, primary Hepatocellular carcinoma Malignant neoplasm of liver, primary documented in this encounter Care Teams Newspaper Subscription Solicitor Relationship Specialty Start Date End Date Camron Suarez MD PCP - General Family Medicine 05/19/19 [address] [facility] [address] [place] [id number] documented as of this encounter
--- OUTSIDE RECORDS SUMMARY | 2022-07-21 01:19 | XMS_ITS | Encounter Summary ---
:1955 Author Organization [place] [address] Care Team Providers Name Role Phone Camron Suarez MD Primary Care Provider Encounter Details Date Type Department Care Team Description 07/15/2019 Multidisciplinary Care Gastroenterology at [facility] [place] [address] Social History Tobacco Use Types Packs/Day [...] documented as of this encounter Progress Notes Anil Hill RN - 07/15/2019 3:57 PM EDT Interdisciplinary Liver Tumor Conference Patient: Benjamín Henry : 1955 Date Presented: 07/15/19 Dx: Cirrhosis due to HCV / ETOH, now with HCC. Tumor Treatment History: ?? N/A -Imaging: Initial: 07/14/2019 MRI abdomen IMPRESSION 1. Large mass in the anterior left hepatic lobe, LR-5 (definitely hepatocellular carcinoma). 2. Cirrhosis and stigmata of portal hypertension including gastric/splenic varices. Interval surveillance Type (MRI/CT) impression; AFP Current: Type (MRI/CT) impression; AFP AFP value: 5.6 Tissue: Patient Characteristics: Current Child's Score: A Current MELD Score: 10 Pertinent Labs: see eDH Discussion / Recommendations of the Board: 5.5 cm LiRads 5 lesion in the left liver lobe Prichard embolization Conference Attendees: Rakan Lopez, Donato Xiao Zimmerman. CLAIRE Sanders. [employer] [place]. CLAU Hill. *These are recommended next steps based on past studies and information available here. Specific treatment to be undertaken must ultimately be determined on an individual patient and those involved in the treatment plan. Anil Hill RN Liver Tumor & Organ [employer] Technology Development Manager Division of Gastroenterology and Hepatology [facility] documented in this encounter Plan of Treatment Scheduled Procedures Name Priority Associated Diagnoses Date/Time EGD, UPPER GI ENDOSCOPY Alcoholic cirrhosis, uns pecified whether ascites present Portal hypertension documented as of this encounter Visit Diagnoses Not on filedocumented in this encounter Care Teams Geriatric Nurse Practitioner Relationship Specialty Start Date End Date Camron Suarez MD PCP - General Family Medicine 05/19/[address] [place] [phone] documented as of this encounter
--- OUTSIDE RECORDS SUMMARY | 2022-07-21 01:19 | XMS_ITS | Encounter Summary ---
:1955 Author Organization [facility] [place] [address] Care Team Providers Name Role Phone Camron Suarez MD Primary Care Provider Encounter Details Date Type Department Care Team Description 06/24/2019 Hospital Encounter Gastroenterology at [facility] Butch [facility] [place] [address] [facility] [phone] GASTROENTEROLOGY [place], [place] [address] Social History Tobacco Use Types [...] Sign Reading Time Taken Comments Blood Pressure 105/66 06/24/2019 4:40 PM EDT Pulse 60 06/24/2019 3:41 PM EDT Temperature 36.6 ??C (97.9 ??F) 06/24/2019 3:41 PM EDT Respiratory Rate 16 06/24/2019 4:40 PM EDT Oxygen Saturation 98% 06/24/2019 4:40 PM EDT Inhaled Oxygen Concentration - - Weight 89.8 kg (198 lb) 06/24/2019 3:41 PM EDT Height 175.3 cm (5' 9) 06/24/2019 3:41 PM EDT Body Mass Index 29.24 06/24/2019 3:41 PM EDT documented in this encounter Discharge Instructions AttachmentsThe following attachments cannot be sent through Care Everywhere.EGD (Upper Endoscopy): Post-op (Gambian)documented in this encounter Medications at Time of Discharge Medication Sig Dispensed Refills Start Date End Date triamterene-hydrochloroth Take 1 capsule by 0 iazide (DYAZIDE) 37.5-25 mouth every morning. mg Capsule CEROVITE SENIOR Tablet 0 05/15/2019 ferrous sulfate 325 mg 0 05/15/2019 (65 mg iron) Tablet [id number]-fzy-XJ-lycopen-l Take by mouth. 0 08/03/2019 utein (CENTRUM SILVER MEN) 300-600-300 mcg Tablet folic acid (FOLVITE) 1 mg Take 1 tablet by 90 tablet 3 03/2607/17/2019 Tablet mouth daily. thiamine (THIAMINE) Take 1 tablet by 30 tablet 3 04/22/2019 10/17/2020 mouth daily. pantoprazole (PROTONIX) Take 1 tablet by 90 tablet 3 201811/07/2019 40 mg Tablet, Delayed mouth daily. Release (E.C.) documented as of this encounter H&P Notes Chanda Waterman MD - 06/24/2019 3:43 PM EDT Patient Name: Benjamín Henry Patient Age: 64 y.o. Birthdate: 1955 Admit date: 06/24/2019 Attending Physician: Butch Parker MD Gastroenterology and Hepatology Pre-Procedure History and Physical Exam Procedure: EGD: Indication: esophageal variceal banding protocol, last banded 05/12/19 Patient Active Problem List Diagnosis Code ??? UGIB (upper gastrointestinal bleed) K92.2 ??? Cirrhosis, alcoholic K70.30 ??? Esophageal varices I85.00 ??? Acute blood loss anemia D62 EXAM: HEENT: Airway examined, oropharynx clear Mallampati Score: II (soft palate, uvula, fauces visible) LUNGS: Clear to auscultation HEART: Regular rate and rhythm, normal S1, S2 ABDOMEN: Normal bowel sounds, soft, non tender, non distended, A/P Proceed with the planned endoscopic procedure. ASA 3 - Patient with moderate systemic disease with functional limitations Sedation Plan: anesthesia Risks and benefits of the procedure explained to the patient. Consent signed. Chanda Waterman MD Advanced Endoscopy Fellow Gastroenterology documented in this encounter Plan of Treatment Scheduled Procedures Name Priority Associated Diagnoses Date/Time EGD, UPPER GI ENDOSCOPY Alcoholic cirrhosis, uns pecified whether ascites present Portal hypertension documented as of this encounter Procedures Procedure Name Priority Date/Time Associated Diagnosis Comme nts EGD, UPPER GI 06/24/2019 3:57 PM He should return for ENDOSCOPY EDT repeat banding ??in 4-6 weeks. from 05/22/19 UPPER GI ENDOSCOPY Routine 06/24/2019 3:35 PM Res ults for this EDT procedure are i n the results section. documented in this encounter Results UPPER GI ENDOSCOPY (06/24/2019 3:35 PM EDT) Component Value Ref Test Analysis Performed At [facility] gist Range Method Time Signature UPPER GI [facility] PROVATION ENDOSCOPY Endoscopy Procedure Date: 06/24/2019 3:35 PM ? Patient Name: Benjamín Henry ? Date of : 1955 ? Age: 64 ? Order #: [id number] ? Instrument Name: [id number] ? Procedure: ? Upper GI endoscopy Indications: ? Cirrhosis with suspected esophageal ? varices Providers: ? Butch Parker MD, Rory anderson ? Matilda Pavon, ? Hydrology Technician Referring : ?Camron Suarez MD Medicines: ? Monitored Anesthesia Care Complications: ? No immediate complications. Procedure: ? Pre-Anesthesia Assessment: ? - Prior to the procedure, a H istory ? and Physical was performed, a nd ? patient medications and aller gies ? were reviewed. The patient is ? competent. The risks and bene fits of ? the procedure and the sedatio n ? options and risks were discus sed with ? the patient. All questions we re ? answered and informed consent was ? obtained. Patient identificat ion and ? proposed procedure were verif ied by ? the physician in the pre-proc edure ? area. Mental Status Examinati on: ? alert and oriented. Airway ? Examination: normal oropharyn geal ? airway and neck mobility. Res piratory ? Examination: clear to auscult ation. ? CV Examination: normal. Proph ylactic ? Antibiotics: The patient does not ? require prophylactic antibiot ics. ? Prior Anticoagulants: The pat ient has ? taken no previous anticoagula nt or ? antiplatelet agents. ASA Grad e ? Assessment: III - A patient w ith ? severe systemic disease. Afte r ? reviewing the risks and benef its, the ? patient was deemed in satisfa ctory ? condition to undergo the proc edure. ? The anesthesia plan was to us e ? monitored anesthesia care (MA C). ? Immediately prior to administ ration ? of medications, the patient w as ? re-assessed for adequacy to r eceive ? sedatives. The heart rate, ? respiratory rate, oxygen satu rations, ? blood pressure, adequacy of p ulmonary ? ventilation, and response to care ? were monitored throughout the ? procedure. The physical statu s of the ? patient was re-assessed after the ? procedure. ? The procedure, indications, b enefits, ? risks and alternatives were e xplained ? to the patient. Specifically ? discussed were potential ? complications including, but not ? limited to, bleeding, perfora tion, ? infection, missing a cancer, and ? adverse medication reactions. The ? Endoscope was introduced thro [facility] the ? mouth, and [facility] ? [facility]. The patient tole rated ? the procedure well. The upper GI ? endoscopy was accomplished wi out ? difficulty. The patient david ated the ? procedure well. ? Findings: ? The esophagus demonstrated scarring from previous ? banding distally but there was only 0-1 varices in ? four trunks arising from the GE junction. These ? completely flattened with insufflation and thus no ? bands were placed. ? Mild portal hypertensive gastropathy without varices. ? The duodenum was normal. ? Moderate Sedation: ? Not applicable - See Anesthesia documentation Impression: ?- 0-1 varices indicating eradicati on ? - banding not performed Recommendation: ?- Follow-up with Dr. London as ? previously scheduled ? Attending Participation: ? I was present and participated during the entire ? procedure, including non-corea portions. ? Butch Parker MD 06/24/2019 4:12:55 PM This report has been signed electronically. Number of Addenda: 0 Note Initiated On: 06/24/2019 3:35 PM Specimen (Source) Anatomical Collection Method Collection Time Re ceived Time Location / / Volume Laterality 06/24/2019 3:35 PM EDT Camron Suarez MD GENERAL SURGICAL [...] 3:54 PM EDT 100 mL/hr 100 mL/hr documented in this encounter Active and Recently Administered Medications Times are shown in EDT. Continuous Medication Order 06/22/2019 06/23/2019 06/24/2019 lactated ringers infusion (CANCELED) [id number] (New Bag - Provider: Seda Adair RN)1601 (New Bag - Provider: Adolfo Zeng CRNA)1611 (Anesthesia Volume Adjustment - Provider: Adolfo Zeng CRNA) 100 mL/hr, at 100 mL/hr, Intravenous, CO NTINUOUS, Starting Sun06/24/19 at 1600, Until Sun06/24/19 at 1641, Endo (Day of Procedure) documented in this encounter Care Teams Mold Forms Builder Relationship Specialty Start Date End Date Camron Suarez MD PCP - General Family Medicine 05/19/19 [address] [facility] [address] [place] [phone] documented as of this encounter
--- OUTSIDE RECORDS SUMMARY | 2022-07-21 01:19 | XMS_ITS | Encounter Summary ---
:1955 Author Organization [facility] [place] [address] Care Team Providers Name Role Phone Camron Suarez MD Primary Care Provider Reason for Visit Reason Onset Date Comments Anemia 05/27/2019 Results 05/27/2019 Encounter Details Date Type Department Care Team Description 05/27/2019 Telephone Gastroenterology at [facility] Gila Arriaza RN Anemia; [place] [phone] Social History Tobacco Use Types Packs/Day [...] Telephone Encounter - Gila Arriaza RN - 05/28/2019 12:56 PM EDT Spoke with patient, let him know that his hep C lab tests are not yet resulted. Per Dr Bledsoe, he can start ferrous sulfate 325 mg once daily. Can take with food if it causes stomachupset. He is awaiting next EGD date/time for repeat banding of varices. Follow up as indicated, depending upon remainder of lab results. Telephone Encounter - Gila Arriaza RN - 05/27/2019 10:54 AM EDT Pt calls in follow up to procedure and labs performed last week by Dr. Bledsoe. States his local provider told him that he should be taking oral iron supplement. Asks if he should do this, and how much. Would also like to know about hep C treatment; some lab results are still pending. Will d/w Dr Bledsoe. documented in this encounter Plan of Treatment Scheduled Procedures Name Priority Associated Diagnoses Date/Time EGD, UPPER GI ENDOSCOPY Alcoholic cirrhosis, uns pecified whether ascites present Portal hypertension documented as of this encounter Visit Diagnoses Not on filedocumented in this encounter Care Teams Checker Stocker Relationship Specialty Start Date End Date Camron Suarez MD PCP - General Family Medicine 05/19/[address] [place] [phone] documented as of this encounter
--- OUTSIDE RECORDS SUMMARY | 2022-07-21 01:19 | XMS_ITS | Encounter Summary ---
:1955 Author Organization [facility] Address [address] [place] [address] Care Team Providers Name Role Phone Camron Suarez MD Primary Care Provider Encounter Details Date Type Department Care Team Description 06/24/2019 Office Visit G[place]ology at [facility] [place], Decompensated hepatic cirrho sis (Primary Dx); [facility] UGIB (upper gastrointestinal bleed); [place] [address] [facility] Bleeding esophageal varices, unspecified esophageal varices type; [phone] Center Chronic hepatitis [place] [address] Social History Tobacco Use Types Packs/Day Years [...] Sign Reading Time Taken Comments Blood Pressure 120/76 06/24/2019 2:24 PM EDT Pulse 60 06/24/2019 2:24 PM EDT Temperature - - Respiratory Rate - - Oxygen Saturation - - Inhaled Oxygen Concentration - - Weight 89.8 kg (198 lb) 06/24/2019 2:24 PM EDT Height 176.5 cm (5' 9.5) 06/24/2019 2:24 PM EDT Body Mass Index 28.82 06/24/2019 2:24 PM EDT documented in this encounter Progress Notes Mehdi London PA - 06/24/2019 2:00 PM EDT HEPATOLOGY NEW PATIENT CONSULTATION Patient: Benjamín Henry Sex: male Date of : 1955 CHIP SILO TENDER: Mehdi London PA-C PCP: Camron Suarez MD Requesting Provider: No ref. provider found 06/24/19 REASON FOR CONSULTATION: Hepatitis C with cirrhosis, recent variceal bleed s/p banding PROBLEM LIST Patient Active Problem List Diagnosis Code ??? UGIB (upper gastrointestinal bleed) K92.2 ??? Cirrhosis, alcoholic K70.30 ??? Esophageal varices I85.00 ??? Acute blood loss anemia D62 ??? Chronic hepatitis C without hepatic coma B18.2 HISTORY OF PRESENT ILLNESS Benjamín Henry is a 64 y.o. male referred to hepatology clinic following recent upper GI bleed, suspected from gastroesophageal varices noted on EGD with stigmata of recent bleeding, status post band ligation on 04/20 and again on 05/22. He was admitted to [facility] [place] 04[place]20 through 04/22 after presenting to his local hospital with melena and hematemesis. He was given PRBC transfusion x4 throughout his hospital course, IV PPI, octreotide, and antibiotics, and admitted to the ICU. He declined TIPS during hishospitalization given concern for possible hepatic encephalopathy. He was unaware of his diagnosis of cirrhosis and it is thought to be related both to chronic alcohol abuse and chronic hepatitis C infection, which was diagnosed during his hospitalization. He is being seen today prior to his next EGD to follow-up from banding on 05/22. He states that he has been doing fairly well at home since his discharge. 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 He has noted some intermittent dizziness here and there. He states that he discontinued his iron supplement 2 weeks ago because he thought this was making him more dizzy. He has not seemed to find much of a difference since discontinuing. He does state thathe has not had any alcohol since his discharge, though he is drinking nonalcoholic beer most days. In regard to prior alcohol use, he states that since his 20s he drank hard liquor most days as well asbeer. He is not in any counseling and not going to any AA meetings at the moment. He does recall seeing a liver specialist at [facility] in 2012. He was told at that time that he had hereditary hemochromatosis. His brother has this as well. He notes that a few years ago he vomited blood but it was on one occasion and he did not seek any care for this. He has not had any episodes since hisdischarge. He has normal, brown stools. He believes his last colonoscopy was in the last few years at [facility] in [place]. 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 He also notes that he has been very lonely in the last few years. He has never been and doesnot have a family, other than his brother who lives [place] the [place] [facility] [place] [facility] who is a Catholicpriest. He would like to move closer to his brother. REVIEW OF SYSTEMS General: Admits fatigue, denies weight loss, poor sleep, fever, chills, night sweats Skin: Denies new rashes, easy bruising, jaundice EENT: Denies blurred vision or change in vision, hearing loss, sinus problems, dry eyes or mouth Endocrine: Denies change in tolerance to heat or cold, excessive thirst Cardiovascular: Denies chest pain, palpitations or irregular heart beat, pain in legs with walking, swelling in feet Pulmonary: Denies SOB, persistent cough, coughing up blood, asthma or wheezing Gastrointestinal: Denies poor appetite, abdominal pain, indigestion, trouble swallowing, diarrhea, constipation, nausea/vomitting, rectal bleeding or blood in stools. Musculoskeletal: Denies pain in joints, back pain, neck or shoulder pain, muscle cramping, movement of legs at night. Neurologic: Admits weakness, denies blackouts or loss of consciousness, headache, numbness in legs or arms, tremor, worsening memory and concentration Genitourinary: Denies frequent urination, blood in urine Psychiatric: Denies changes in mood or behavior, anxiety MEDICATIONS Current Outpatient Medications Medication Sig Dispense Refill ??? ndtcwxwa-myw-UR-lycopen-lutein (CENTRUM SILVER MEN) 300-600-300 mcg Tablet Take by mouth. ??? triamterene-hydrochlorothiazide (DYAZIDE) 37.5-25 mg Capsule Take 2 capsules by mouth every morning. ??? folic acid (FOLVITE) 1 mg Tablet Take 1 tablet by mouth daily. 90 tablet 3 ??? thiamine (THIAMINE) Take 1 tablet by mouth daily. 30 tablet 3 ??? pantoprazole (PROTONIX) 40 mg Tablet, Delayed Release (E.C.) Take 1 tablet by mouth daily. 90 tablet 3 No current facility-administered medications for this visit. ALLERGIES Allergies Allergen Reactions ??? Aspirin Other (See Comments) It makes me bleed. 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 Yes, back in 20s, never shared needles Intranasal drugs? Yes, cocaine, last used late 20s Tattoos? Couple, homemade in teens/20s service? None Blood transfusions? Yes, just recently in hospital, never before Close contact/relationship with known hepatitis? None FAMILY HISTORY Negative except as noted below Medical problem Family member Medical Problem Family member Medical Problem Family member Alcohol drug Problem Kidney disease Mental illness Anemia or Blood Disease Liver disease Brother ?hemochromatosis Depression Diabetes Brother, uncle Liver cancer Seizure High blood pressure Stroke Lung disease Heart disease Clotting problems Colon Cancer Maternal grandfather High cholesterol Immune disorders Other Cancer PHYSICAL EXAM Vitals: 06/24/19 1424 BP: 120/76 Pulse: 60 Weight: 89.8 kg (198 lb) Height: 176.5 cm (5' 9.5) Body mass index is 28.82 kg/m??. Constitutional: Well appearing, appropriate, no acute distress Skin: No cyanosis, no palmar erythema, no jaundice, no spider angiomata Head: Subtle temporal muscle wasting, PERRLA, sclerae anicteric, oropharynx within normal limits CVS: RRR, normal S1/S2, no murmurs, rubs, or gallops, equal pulses in bilateral upper and lower extremities Lungs: Clear to auscultation bilaterally, no wheezes, rales, or rhonci Abdomen: Nontender, nondistended, no discernable hepatosplenomegaly, no masses, no fluid wave, no umbilical hernia, no caput medussae, positive bowel sounds Neurologic: Alert and oriented x 3, no asterixis or tremor Extremities: Trace LE edema, no clubbing, no muscle wasting, no joint swelling RESULTS Recent Results (from the past 24 hour(s)) AFP tumor marker Result Value Ref Range AFP 5.6 <=8.3 ng/mL HIV Screen, 4th Generation ([facility]CGP[facility]APD) Result Value Ref Range HIV-1/2 Ab and Ag Negative Negative Prothrombin Time Result Value Ref Range PT 16.9 (H) 9.4 - 12.5 sec INR 1.5 Comprehensive metabolic panel (non-fasting) Result Value Ref Range Glucose Lvl 119 65 - 199 mg/dL BUN 9 (L) 10 - 20 mg/dL Creatinine 0.81 0.80 - 1.50 mg/dL Sodium 138 135 - 145 mmol/L Potassium 3.2 (L) 3.5 - 5.0 mmol/L Chloride 103 98 - 107 mmol/L CO2 26 22 - 31 mmol/L Anion Gap 9 5 - 15 mmol/L Calcium 8.4 (L) 8.5 - 10.5 mg/dL Total Protein 7.6 6.1 - 8.0 gm/dL Albumin 3.2 3.2 - 5.2 gm/dL AST 47 (H) 0 - 39 unit/L ALT 26 0 - 55 unit/L Alk Phos 77 40 - 130 unit/L Total Bilirubin 1.1 0.2 - 1.3 mg/dL eGFR 94 >=60 mL/min/1.73 m?? eGFR 109 >=60 mL/min/1.73 m?? CBC - CLOTTED MELD-Na score: 11 at 06/24/2019 5:10 PM MELD score: 11 at 06/24/2019 5:10 PM Calculated from: Serum Creatinine: 0.81 mg/dL (Rounded to 1 mg/dL) at 06/24/2019 5:10 PM Serum Sodium: 138 mmol/L (Rounded to 137 mmol/L) at 06/24/2019 5:10 PM Total Bilirubin: 1.1 mg/dL at 06/24/2019 5:10 PM INR(ratio): 1.5 at 06/24/2019 5:10 PM Age: 64 years Prior DH Laboratory: Lab Results Component Value Date IRON 13 (L) 05/22/2019 TIBC 413 05/22/2019 FERRITIN 14 (L) 05/22/2019 iron saturation 3% Ref. Range 04/22/2019 04:30 05/22/2019 14:09 HCV Viral Load Latest Units: IU/mL 1,260,443 HepB Surface Ab Quant Latest Units: IU/L <3.5 HepB Surface Ab Unknown Negative HepB Surface Ag Latest Ref Range: Negative Negative Hep B Core Ab Latest Ref Range: Negative Negative Hep B Core IgM Latest Ref Range: Negative Negative Hepatitis C Ab Latest Ref Range: Negative Positive (A) HCV Genotype 3 HFE GENOTYPING RESULTS: ??C282Y: HETEROZYGOUS (one copy detected) ??H63D: NOT DETECTED INTERPRETATION: Heterozygosity for the C282Y variant alone is generally not associated with hereditary hemochromatosis. Endoscopy: 05/22/19: Findings: ?Large (> 5 mm) varices were found in the lower third ?of the esophagus. Two bands were successfully placed ?with complete eradication, resulting in deflation of ?varices. There was no bleeding during the maneuver. ?Mild portal hypertensive gastropathy was found in the ?gastric body. ?The examined duodenum was normal. 04/20/19: Findings: ?Two columns of non-bleeding large (> 5 mm) varices ?were found in the distal esophagus. No stigmata of ?recent bleeding were evident and no red amisha signs ?were present. Three bands were successfully placed ?with complete eradication, resulting in deflation of ?varices. There was no bleeding during the procedure. ?Type 1 gastroesophageal varix (GOV1, esophageal ?varices which extend along the lesser curvature) with ?no bleeding were found in the cardia. There was ?stigmata of recent bleeding. One band was ?successfully placed with complete eradication, ?resulting in deflation of varices. There was oozing ?upon suction of the varix ?There is no endoscopic evidence of bleeding or ?ulceration in the entire examined stomach. ?The examined duodenum was normal. Imaging: CT abdomen/pelvis w contrast @ [facility] 04/19/19 (2nd read @ [facility] FINDINGS: The absence of intravenous contrast limits the evaluation of solid viscera and vasculature. ?? Chest: Lungs and large airways: Dual noncalcified sub-5 mm left lower lobe pulmonary nodules. No consolidation. No contusion. Pleura: No effusion. Heart/vasculature: Normal size. Trace physiologic pericardial effusion. No central pulmonary emboli. Smooth-walled thoracic aorta. Lymph nodes: No pathologically enlarged hilar nor mediastinal lymph nodes. Mediastinum and tyler: No mediastinal hematoma. ?? Abdomen/pelvis: Liver: Heterogeneous enhancement. Tiny cyst. Contour nodularity. Focal bulging of the anterosuperior left liver lobe. Subcentimeter hypodense nodule at the liver dome. Bile ducts: Nondilated. Gallbladder: Gallbladder wall thickening which I suspect is congestive with dependent cholelithiasis. Pancreas: Normal attenuation without ductal dilatation. Spleen: Mild splenomegaly to 13.2 cm without focal lesion. Adrenals: Normal. Kidneys: Indeterminate hypodense lesion anterior left interpolar cortex. Dominant simple right interpolar renal cyst. No collecting system dilation. Urinary Bladder: Normal. ?? Vasculature: Patent intra and extrahepatic portal vein, superior mesenteric and splenic veins. Small gastrosplenic and gastroesophageal varices. Small recanalized umbilicus vein. Lymph Nodes: Small retroperitoneal and mesenteric lymph nodes. This is not unanticipated in the setting of cirrhosis. Bowel: Diverticulosis without acuity. Normal caliber loops of large and small bowel. Dilated distal duodenum and proximal jejunum. Peritoneum and mesentery: No ascites. Mesenteric and retroperitoneal congestion. Abdominal wall: Normal. ?? Reproductive organs: Normal prostate contour Osseous structures: Degenerative changes. No acute fracture. ?? IMPRESSION 1. Cirrhosis with stigmata of portal hypertension characterized by mesenteric congestion, congestive thickening of the gallbladder wall, mild splenomegaly and small varices. 2. Focal bulging of the anterosuperior left liver lobe may reflect pronounced cirrhotic nodularity though hepatic mass remains of concern. Correlation with alpha-fetoprotein is suggested and if elevated, dynamic liver MRI recommended. 3. Indeterminate hypodense lesion anterior left interpolar cortex. This may be evaluated at time of liver MRI or sonographic correlation electively. 4. Dilated distal duodenum and proximal jejunum of unknown clinical Significance. ASSESSMENT/PLAN Benjamín Henry is a 64 y.o. male with decompensated hepatic cirrhosis likely secondary to chronic alcohol abuse and hepatitis C infection, genotype 3. He was admitted to [facility] [place] 04/20-04/22 after presenting to OSH with hematemesis and melena. EGD noted nonbleeding large esophageal varices and a gastro-esophageal varix with stigmata of recent bleeding, status post banding x3 of the esophageal varices and x1 of the gastroesophageal varix. He declined TIPS during hospitalization for fear of postprocedural hepatic encephalopathy. He was seen again in the endoscopy on 05/22 for repeat EGD and 2 bands wereplaced again on large esophageal varices. He continued to show evidence of significant iron deficiency anemia on that date. HCV was diagnosed during his hospitalization with positive HCV antibody and detectable viral load ofapproximately 1.2 million IU/mL on 05/22. Risk factors for viral acquisition include intravenous and intranasal drug abuse several decades ago and homemade tattoos. He was unaware of this diagnosis, though did see hepatology at [facility] in 2012 and had a positive HCV antibody. 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 On repeat labs today, MELD-Na is 11. He currently is a Vhrav-Umlplcqk-Mqet class A(6) cirrhotic withlabs today and absence of ascites and encephalopathy. I do not appreciate any concerning signs or symptoms of further decompensation today. We discussed that he would be a good candidate for antiviral therapy for his HCV infection, though we must first optimize his disease. He should complete banding protocol until varices are eradicated. He will need to be off of Protonix as this would have a potential drug drug interaction with antivirals. He also has not been started on a nonselective beta-barbara for secondary bleeding prevention, but unfortunately we did not have enough time today to discuss this and long-term portal hypertension management. The possible antiviral options for him are Epclusa monotherapy for 24 weeks or Epclusa plus weight-based ribavirin for 12 weeks, though we likely will use the former regimen as he has significant anemia which will be contraindicated with ribavirin. Unfortunately, today's CBC was clotted and will need to be redrawn locally. There is also a potential drug drug interaction between Epclusa and carvedilol or nadolol, though the benefits will outweigh the risks and we will monitor him closely throughout treatment. Lastly, his outside CT scan noted focal bulging of the left liver lobe and a mass could not be excluded. An MRI was recommended for evaluation. He also has a hypodense lesion in the left kidney that can also be evaluated on MRI or ultrasound. AFP today is normal which is reassuring. I will discuss with him about considering MRI or ultrasound for better characterization prior to starting antiviral therapy. Plan: -Repeat EGD today to follow-up esophageal varices banding protocol. -Obtain CBC locally to follow-up anemia. -Continue complete alcohol abstinence. Nonalcoholic beer likely safe at this juncture, though ideally over time he should discontinue. -He should restart ferrous sulfate 325 mg twice daily. This is likely not the cause of his dizziness, which is more likely related to anemia. I recommended he avoid laborious activities at home, especially at high altitude on ladders/myn[place]. -No treatment recommended at this time for encephalopathy as I do not believe he has this. If he feels safe to drive then this is okay. -Also no treatment needed at this time for ascites/edema. -Follow-up in hepatology clinic within the next couple weeks with imaging same day prior to appointment (MRI or ultrasound). At this visit we will discuss HCV treatment process, starting on nonselective beta-barbara, discontinuing Protonix if varices are eradicated, and being sure that he restarted iron supplement. 55 of this 60 minute visit was in [id number]-ripk discussion regarding disease, prognosis and treatment. [facility] Section of Gastroenterology [place] [address] Copy: Camron Suarez MD No ref. provider found documented in this encounter Plan of Treatment Scheduled Procedures Name Priority Associated Diagnoses Date/Time EGD, UPPER GI ENDOSCOPY Alcoholic cirrhosis, uns pecified whether ascites present Portal hypertension documented as of this encounter Procedures Procedure Name Priority Date/Time Associated Comments Diagnosis HC VENIPUNCTURE Routine 06/24/2019 5:10 PM Chronic hepatitis C Results for this EDT without hepatic procedure ar e in coma the results section. HC HIV SCREEN, 4TH Routine 06/24/2019 5:10 PM Chronic hepatiti s C Results for this GENERATION EDT without hepatic procedure ar e in coma the results section. HC PROTHROMBIN TIME Routine 06/24/2019 5:10 PM Chronic hepatit is C Results for this EDT without hepatic procedure ar e in coma the results section. COMPREHENSIVE Routine 06/24/2019 5:10 PM Chronic hepatitis C R esults for this METABOLIC PANEL EDT without hepatic procedure are in (NON-FASTING) coma the results section. documented in this encounter Results AFP tumor marker (06/24/2019 5:10 PM EDT) P athologist Signature AFP 5.6 <=8.3 ng/mL [facility] Specimen Anatomical Collection Method Collection Time Receive d Time (Source) Location / / Volume Laterality Blood specimen 06/24/2019 5:10 PM 019 5:26 (specimen) EDT PM EDT Resulting Agency Comment Spec In Lab Jia Bledsoe MD CHEMISTRY ORDERABLES Performing Organization Address City/State/[place] [address] HIV Screen, 4th Generation ([facility]D) (06/24/2019 5:10 PM EDT) Analysis Performed At Patho logist Time Signature HIV-1/2 Ab and Negative Negative [facility] Comment: This 4th Generation HIV test screens for the presence of the HIV-1 p24 antigen as well as antibodies reactive against H IV-1 and HIV-2. A negative screen does not rule out an acute HIV infection. If acute HIV infection is suspected, testing should be repeated in 2 - 3 week s or HIV nucleic acid testing performed. Specimen Anatomical Collection Method Collection Time Receive d Time (Source) Location / / Volume Laterality Blood specimen 06/24/2019 5:10 PM 019 5:26 (specimen) EDT PM EDT Resulting Agency Comment Spec In Lab Jia Bledsoe MD IMMUNOLOGY ORDERABLES Performing Organization Address City/State/[place] [address] (ABNORMAL) Prothrombin Time (06/24/2019 5:10 PM EDT) P athologist Signature PT 16.9 (H) 9.4 - 12.5 [facility] INR 1.5 [facility] Comment: An [...] Location / / Volume Laterality Blood specimen 06/24/2019 5:10 PM 019 5:26 (specimen) EDT PM EDT Resulting Agency Comment Spec In Lab Jia Bledsoe MD HEMATOLOGY ORDERABLES Performing Organization Address City/[facility]/[place] [address] (ABNORMAL) Comprehensive metabolic panel (non-fasting) (06/24/2019 5:10 PM EDT) P athologist Signature Glucose Lvl 119 65 - 199 [facility] mg/dL [facility] Comment: Diabetes: >=200 mg/dL plus symp toms BUN 9 (L) 10 - 20 mg/dL [facility] Creatinine 0.81 0.80 - 1.50 mg/dL [facility] Sodium 138 135 - 145 mmol/L [facility] Potassium 3.2 (L) 3.5 - 5.0 mmol/L [facility] Comment: Please note: ??Patients with WBC >100,00 0 may have falsely elevated Potassium levels. ??For accurate Potassium quantif ication in these patients send serum separator tube (gold top) for subsequent determinations. ??Contact the Clinical Chemistry Laboratory if there are any qu estions. Chloride 103 98 - 107 mmol/L [facility] CO2 26 22 - 31 mmol/L [facility] Anion Gap 9 5 - 15 mmol/L [facility] Calcium 8.4 (L) 8.5 - 10.5 mg/dL [facility] Total Protein 7.6 6.1 - 8.0 gm/dL [facility] Albumin 3.2 3.2 - 5.2 gm/dL [facility] AST 47 (H) 0 - 39 unit/L [facility] ALT 26 0 - 55 unit/L [facility] Alk Phos 77 40 - 130 unit/L [facility] Total Bilirubin 1.1 0.2 - 1.3 mg/dL [facility] Estimated GFR 94 >=60 mL/min/1.73 m?? [facility] Comment: The eGFR was calculated using the CKD-EP I equation. As with all creatinine based estimates of kidney function, eGFR values calculated with the CKD-EPI equation are not accurate in patients wi th acute kidney failure, extremes of body mass or the acutely ill. [email or web address] eGFR 109 >=60 mL/min/1.73 m?? [facility] Comment: The eGFR was calculated using the CKD-EP I equation. As with all creatinine based estimates of kidney function, eGFR values calculated with the CKD-EPI equation are not accurate in patients wi th acute kidney failure, extremes of body mass or the acutely ill. [email or web address] Specimen Anatomical Collection Method Collection Time Receive d Time (Source) Location / / Volume Laterality Blood specimen 06/24/2019 5:10 PM 019 5:26 (specimen) EDT PM EDT Resulting Agency Comment Spec In Lab Jia Bledsoe MD CHEMISTRY ORDERABLES Performing Organization Address City/State/[place] [address] documented in this encounter Visit Diagnoses Diagnosis Decompensated hepatic cirrhosis - Primar y UGIB (upper gastrointestinal bleed) Hemorrhage of gastrointestinal tract, un specified Bleeding esophageal varices, unspecified esophageal varices type Chronic hepatitis C without hepatic coma documented in this encounter Care Teams Principal Technologist Relationship Specialty Start Date End Date Camron Suarez MD PCP - General Family Medicine 05/19/[address] [phone] documented as of this encounter
--- OUTSIDE RECORDS SUMMARY | 2022-07-21 01:19 | XMS_ITS | Encounter Summary ---
:1955 Author Organization [facility] [place] [address] Care Team Providers Name Role Phone Camron Suarez MD Primary Care Provider Reason for Referral Diagnostic Test (Routine) - Closed Specialty Diagnoses / Procedures Referred By Contact Refer red To Contact Radiology Diagnoses Hepatocellular carcinoma Zeus Berger [facility] Interventionl Rad Procedures IR [place] [address] [place] [address] Referral ID Status Reason Start Date Expiration Date Visits V isits Requested Authorized [id number] Closed Specialty 1 1 Service Requested Reason for Visit Auth/Cert Specialty Diagnoses / Procedures Referred By Contact Refer red To Contact Diagnoses hepatocellular carcinoma Procedures ARTERIOGRAMS Referral ID Status Reason Start Date Expiration Date Visits Requ ested Visits Authorized [id number] 1 1 Encounter Details Date Type Department Care Team Description 07/31/2019 Hospital Encounter Radiology at [facility] [place] Ab, [facility] Zeus Sarabia MD carcinoma [facility] [place] [address] RADIOLOGY DEPT [phone] [place] [address] Social History Tobacco Use Types Packs/Day Years [...] Sign Reading Time Taken Comments Blood Pressure 116/70 07/31/2019 3:25 PM EST Pulse 63 07/31/2019 3:24 PM EST Temperature 36.9 ??C (98.5 ??F) 07/31/2019 11:35 AM EST Respiratory Rate 14 07/31/2019 3:24 PM EST Oxygen Saturation 99% 07/31/2019 3:24 PM EST Inhaled Oxygen Concentration - - Weight - - Height - - Body Mass Index - - documented in this encounter Discharge Instructions Discharge InstructionsEnriqueta Mercado RN - 07/31/2019 4:53 PM EST [facility] Interventional Radiology Radial Artery Instructions Procedure: Liver Greenup Embolization Puncture Site: Left Radial Date: 07/31/19 Physician: Ab 1. At home we advise you to rest quietly in bed or on the couch until the next morning. You may get up and walk around but keep your activity to a minimum. DO NOT USE WRIST OF AFFECTED SIDE TO PUSH YOURSELF UP IN BED OR CHAIR TO SHIFT POSITION FOR 12 HOURS POST PROCEDURE. 2. Resume your previous diet. Drink 6-8 ounces of fluid per hour for the next 8 hours. Avoid alcoholic or caffeinated beverages for 24 hours. If you are a diabetic and take Metformin or Janumet or the combination med's that include Metformin, DO NOT take for 2 days after the procedure. 3. Avoid strenuous activity for the next 48 hours, particularly in the next 24 hours. Do not lift anything for the next 48 hours or engage in any sports activity for 48 hours. You may engage in sexual activity after 48 hours. Problems to watch for: 1. If you develop bleeding at the puncture site, put direct pressure on the site for 15 minutes and call your doctor. Call for help. If the bleeding persists, reapply firm pressure, call 911 for an ambulance and go to your local Emergency Department. 2. If you notice a sudden change in the feeling (numbness, tingling and/or pain) of your hand on theside of the puncture call your doctor. 3. You may develop a bruise and swelling at the catheter insertion site. If you develop a bulge, youmay have bleeding inside. Contact your doctor or the Radiology/Vascular Department here. Report signs of infection (redness, swelling, discharge, soreness, or fever) to your doctor. 4. Leave the bandage on for 24-48 hours. A little spot of blood at the catheter insertion site is normal. A small lump or bruise under the skin is normal. They generally disappear in 3-4 days. You may shower the following day after the procedure. You should NOT swim or tub bathe for 48 hours. 5. Expect some mild tenderness over the catheter insertion area. You will notice this after the local anesthetic wears off. This should improve during the 24-48 hours after the procedure. Take tylenol if needed. Contact your doctor is the discomfort worsens. 6. Watch for signs for infection at the catheter site for the first few days at home. Signs include:Redness, swelling with increased soreness, yellow, green or brown fowl smelling drainage. If you think you may have these symptoms, take your temperature, then call your doctor. 7. You have received medication during your procedure to help lessen anxiety and keep you comfortable and which affects judgement and reaction time. We recommend that you do not drive, operate equipment, sign any important documents, or smoke unattended for 24 hours following your procedure. Because of the sedation please be careful on stairs, as you may be unsteady on your feet. You may return to [facility] with the above restrictions on . The limb where the catheter was inserted should look and feel normal in color, sensation, and temperature. If your arm/hand becomes cool, pale, blue or changing color with numbess and tingling, CALL YOUR DOCTOR. If you have any questions or concerns, please call Interventional Radiology Department at until 6pm. After 6pm, or on weekends or hoildays, ce and ask for the global consumer sector vice president photonics engineering technician. OR Vascular Department at until 4:45pm. After 4:45pm call and ask for the Vascular resident photonics engineering technician. Peripheral IV site -- slight redness, or tenderness is normal, you can use a warm compress. If tenderness and redness increases or foul drainage occurs, please contact your M. D. Revised 07/10/19 documented in this encounter Medications at Time of Discharge Medication Sig Dispensed Refills Start Date End Date acetaminophen Take 1 tablet by 0 08/03/2019 (TYLENOL) 500 mg mouth every 6 hours Tablet as needed for Pain or Fever (Not to exceed 2gm (4 pills) a day). triamterene-hydrochlo Take 1 capsule by 0 rothiazide (DYAZIDE) mouth every 37.5-25 mg Capsule morning. bisacodyl (DULCOLAX) Place 1 suppository 60 suppository [...] 0 05/15/201901/11 mg (65 mg iron) Tablet jrmruakv-rqv-JZ-lycop Take by mouth. 0 08/03/2019 en-lutein (CENTRUM SILVER MEN) 300-600-300 mcg Tablet thiamine (THIAMINE) Take 1 tablet by 30 tablet 3 04/22/2019 10/17/2020 mouth daily. pantoprazole Take 1 tablet by 90 tablet 3 04/22/20192019 (PROTONIX) 40 mg mouth daily. Tablet, Delayed Release (E.C.) documented as of this encounter Progress Notes Enriqueta Mercado, RN - 07/31/2019 3:45 PM EST TR BAND REMOVAL TIME ARRIVED IN RECOVERY ROOM: 1545 TIME TR BAND APPLIED: 1530 NO BP'S, LAB DRAWS, IV'S ON AFFECTED ARM FOR 24 HOURS. TIME REMOVAL STARTED: 1615 - 3 cc's removed (45 minutes after application) IF NO BLEEDING OCCURS: 1620 - 3 cc's removed (every 5 min. until all air is removed) 1625 - 3 cc's removed (every 5 min. until all air is removed) 1630 - 3 cc's removed (every 5 min. Until all air is removed) TR BAND POLICY: If no bleeding occurs, continue to remove 3 cc's every 5 minutes until all air is removed from TR Band. If bleeding does occur, reinflate with 3 cc's and wait 15 minutes. Restart releasing 3 cc's of air every 5 minutes until all air is removed. Leave TR Band in place. If site is free of bleeding or hematoma after 5 minutes, remove TR Band and apply sterile dressing to site. TIME TR BAND REMOVED AND DRESSING APPLIED: 1635 Evaluate site for bleeding every 15 minutes X 4 after TR Band removal. Pt. And sprinkler driver given radial d/c instructions. All questions/concerns addressed. Jolynn Beasley RN - 07/31/2019 1:05 PM EST Angio only post procedure: Time sheath removed:15:28 Side: L radial artery Closure device used: TR band TR band on at: 1530 TR band amount 12 cc air Hematoma present? No Maia Rai RN - 07/31/2019 12:26 PM EST To procedure room 3 via stretcher. Onto table supine. All monitors, O2, safety strap in place. Med'sper protocol. Jolynn Green RN - 07/28/2019 9:58 AM EST ANGIO NURSING DATABASE Name: BERE HENRY Date of : 1955 AGE: 64 y.o. Address: [place] [address] (home) Mobile: Telephone Information: Referring Provider: Zeus Berger REASON FOR VISIT: Order Questions Answers Where will study be performed? [facility] Radiology [120] Reason for exam and clinical history: hepatocellular carcinoma Does patient require sedation? IV Please ensure a History and Physical exam is completed within 30 days of the Radiology Procedure OK Is the patient on anticoagulant / anitplatelet therapy ? No Allergies Allergen Reactions ??? Aspirin Other (See Comments) It makes me bleed. Pertinent PMH: Patient Active Problem List Diagnosis Code ??? UGIB (upper gastrointestinal bleed) K92.2 ??? Cirrhosis, alcoholic K70.30 ??? Esophageal varices I85.00 ??? Acute blood loss anemia D62 ??? Chronic hepatitis C without hepatic coma B18.2 Pertinent PSH: Past Surgical History: Procedure Laterality Date ??? PRO UPPER GI ENDOSCOPY, DIAGNOSTIC N/A 04/20/2019 EGD, UPPER GI ENDOSCOPY performed by Jamie Avalos MD at [facility] ENDOSCOPY ??? PRO UPPER GI ENDOSCOPY, DIAGNOSTIC N/A 05/22/2019 EGD, UPPER GI ENDOSCOPY performed by Jia Bledsoe MD at [facility] ENDOSCOPY ??? PRO UPPER GI ENDOSCOPY, DIAGNOSTIC N/A 06/24/2019 EGD, UPPER GI ENDOSCOPY performed by Butch Parker MD at [facility] ENDOSCOPY ??? PRO UPPER GI ENDOSCOPY, LIGAT VARIX 04/20/2019 EGD, W BAND LIGATION OF ESOPHAGEAL/GASTRIC VARICES performed by Jamie Avalos MD at [facility] ENDOSCOPY Date/Procedure Meds given/comments 07/31/19: Greenup liver embo Ceftriaxone 1g IV, Flagyl 500mg, Fentanyl 325 mcg, Versed 5.5 mg Radial access cocktail (heparin 3000 units, Nitro 200mcg, Verapamil 2.5mg) Laboratory Results: Lab Results Component Value Date INR 1.4 07/14/2019 Lab Results Component Value Date CREATININE 0.95 07/14/2019 Lab Results Component Value Date K 3.3 (L) 07/14/2019 Lab Results Component Value Date PLATELET 105 (L) 07/14/2019 Medications: Prior to Admission medications Medication Sig Start Date End Date Taking? Authorizing Provider gabapentin (NEURONTIN) 300 mg Capsule Take 1 capsule by mouth 3 times daily. 07/17/19 Mehdi London PA folic acid (FOLVITE) 1 mg Tablet Take 1 tablet by mouth daily. 07/17/19 Mehdi London PA ferrous sulfate 325 mg (65 mg iron) Tablet 05/15/19 PROVIDER, HISTORICAL wdounkut-wjw-MR-lycopen-lutein (CENTRUM SILVER MEN) 300-600-300 mcg Tablet Take by mouth. PROVIDER, HISTORICAL triamterene-hydrochlorothiazide (DYAZIDE) 37.5-25 mg Capsule Take 2 capsules by mouth every morning.PROVIDER, HISTORICAL thiamine (THIAMINE) Take 1 tablet by mouth daily. 04/22/19 Rober Beltran MD pantoprazole (PROTONIX) 40 mg Tablet, Delayed Release (E.C.) Take 1 tablet by mouth daily. 04/22/19 Rober Beltran MD documented in this encounter H&P Notes Joaquim Steiner P - 07/31/2019 11:33 AM EST Images from the original note were not included. INTERVENTIONAL RADIOLOGY FOCUSED H&P: Procedure: Planned procedure: Green[place] Hepatic Embolization The patient's history and physical exam have been reviewed and completed. There has been no intervalchange from that of the pre-operative history and physical exam done within the last 30 days. Physical Exam: Cardiovascular: Regular, Normal Pulmonary: Breath sounds clear to auscultation Vascular: Radial pulse intact. US evaluation revealed a 0.27 cm left radial artery, Barbeau Type A pattern The planned procedure (and sedation plan if appropriate) , its benefits and risks, and alternatives were discussed with the patient. The patient consented to the procedure. PRE-SEDATION ASSESSMENT: Sedation Plan: moderate (conscious sedation) ASA: 3: Patient with severe systemic disease Mallampati: III: only the base of the uvula can be seen Confirm NPO status: Yes History of anesthetic complications: No Current medications reviewed: Yes Allergies reviewed: Yes Source Note - JatinJoaquim - 07/29/2019 10:12 AM EST Images from the original note were not included. INTERVENTIONAL RADIOLOGY FOCUSED H&P and PRE-PROCEDURE NOTE: PCP: Camron Suarez MD Referring Provider: Zeus Berger Planned Procedure: Planned procedure: Greenup Hepatic Embolization Procedure Indication: Order Questions Answers Where will study be performed? [facility] Radiology [120] Reason for exam and clinical history: hepatocellular carcinoma Does patient require sedation? IV Please ensure a History and Physical exam is completed within 30 days of the Radiology Procedure OK Is the patient on anticoagulant / anitplatelet therapy ? No Presenting Diagnosis/ Complaint: Bere Henry is a 64 y.o. 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 Consensus of the [facility] [place] Liver Tumor Board was treatment with embolization. ?? Liver Mass Data: Tumor Found by: surveillance (CT/MRI on 07/14/19) Tumor Characteristics: Lesion #1: Segment 2, 5.5 cm, Li-RADS 5 ?? Vascular invasion: no Extrahepatic disease: none BCLC Stage: B (Intermediate, multinodular, ECOG ), CPT A-B) ?? AFP: 5.6 CPT: A MELD: 10 ECO [...] ENDOSCOPY performed by Jamie Avalos MD at [facility] ENDOSCOPY ??? PRO UPPER GI ENDOSCOPY, DIAGNOSTIC N/A 05/22/2019 EGD, UPPER GI ENDOSCOPY performed by Jia Bledsoe MD at [facility] ENDOSCOPY ??? PRO UPPER GI ENDOSCOPY, DIAGNOSTIC N/A 06/24/2019 EGD, UPPER GI ENDOSCOPY performed by Butch Parker MD at [facility] ENDOSCOPY ??? PRO UPPER GI ENDOSCOPY, LIGAT VARIX 04/20/2019 EGD, W BAND LIGATION OF ESOPHAGEAL/GASTRIC VARICES performed by Jamie Avalos MD at [facility] ENDOSCOPY Medications: Current Outpatient Medications on File Prior to Encounter Medication Sig Dispense Refill ??? ketoconazole (NIZORAL) 2 % Cream ??? [...] 325 mg (65 mg iron) Tablet ??? oxicxptc-elo-SB-lycopen-lutein (CENTRUM SILVER MEN) 300-600-300 mcg Tablet Take by mouth. ??? triamterene-hydrochlorothiazide (DYAZIDE) 37.5-25 mg Capsule Take 2 capsules by mouth every morning. ??? thiamine (THIAMINE) Take 1 tablet by mouth daily. 30 tablet 3 ??? pantoprazole (PROTONIX) 40 mg Tablet, Delayed Release (E.C.) Take 1 tablet by mouth daily. 90 tablet 3 No current facility-administered medications on file prior to encounter. Allergies: Aspirin Social History and Habits: Social [...] Last attempt to quit: 2000 Years since quittin.8 ??? Smokeless tobacco: Never [...] file Gets together: Not on file Attends quaker service: Not on file Active member of [...] ALT 29 07/14/2019 PROT 8.2 (H) 07/14/2019 Imaging: MRI of the Abdomen - 10/21/19 Physical Exam: Pending (to be performed in angio the day of procedure) ASA: Pending (to be assessed in angio the day of procedure) Mallampati Class: Pending (to be assessed in angio the day of procedure) Assessment: 64 y.o. 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 Consensus of the [facility] [place] Liver Tumor Board was treatment with embolization. Plan: Plan Planned procedure: Greenup Hepatic Embolization Labs to be performed day of procedure: No labs Sedation: moderate (conscious sedation) Prophylactic antibiotic : Other (see comments)(Ceftriaxone & Metronidazole) Contrast: Omnipaque Additional medications for procedure: Lidocaine Planned access site: Left Radial vs. Right CROSS TIE CUTTER Position: Supine Consent: Pending 07/29/2019 Joaquim Steiner - 07/29/2019 10:12 AM EST Images from the original note were not included. INTERVENTIONAL RADIOLOGY FOCUSED H&P and PRE-PROCEDURE NOTE: PCP: Camron Suarez MD Referring Provider: Zeus Berger Planned Procedure: Planned procedure: Greenup Hepatic Embolization Procedure Indication: Order Questions Answers Where will study be performed? [facility] Radiology [120] Reason for exam and clinical history: hepatocellular carcinoma Does patient require sedation? IV Please ensure a History and Physical exam is completed within 30 days of the Radiology Procedure OK Is the patient on anticoagulant / anitplatelet therapy ? No Presenting Diagnosis/ Complaint: Bere Henry is a 64 y.o. 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 Consensus of the [facility] [place] Liver Tumor Board was treatment with embolization. ?? Liver Mass Data: Tumor Found by: surveillance (CT/MRI on 07/14/19) Tumor Characteristics: Lesion #1: Segment 2, 5.5 cm, Li-RADS 5 ?? Vascular invasion: no Extrahepatic disease: none BCLC Stage: B (Intermediate, multinodular, ECOG ), CPT A-B) ?? AFP: 5.6 CPT: A MELD: 10 ECO [...] ENDOSCOPY performed by Jamie Avalos MD at [facility] ENDOSCOPY ??? PRO UPPER GI ENDOSCOPY, DIAGNOSTIC N/A 05/22/2019 EGD, UPPER GI ENDOSCOPY performed by Jia Bledsoe MD at [facility] ENDOSCOPY ??? PRO UPPER GI ENDOSCOPY, DIAGNOSTIC N/A 06/24/2019 EGD, UPPER GI ENDOSCOPY performed by Butch Parker MD at [facility] ENDOSCOPY ??? PRO UPPER GI ENDOSCOPY, LIGAT VARIX 04/20/2019 EGD, W BAND LIGATION OF ESOPHAGEAL/GASTRIC VARICES performed by Jamie Avalos MD at [facility] ENDOSCOPY Medications: Current Outpatient Medications on File Prior to Encounter Medication Sig Dispense Refill ??? ketoconazole (NIZORAL) 2 % Cream ??? [...] 325 mg (65 mg iron) Tablet ??? nvjzffhs-ssb-QV-lycopen-lutein (CENTRUM SILVER MEN) 300-600-300 mcg Tablet Take by mouth. ??? triamterene-hydrochlorothiazide (DYAZIDE) 37.5-25 mg Capsule Take 2 capsules by mouth every morning. ??? thiamine (THIAMINE) Take 1 tablet by mouth daily. 30 tablet 3 ??? pantoprazole (PROTONIX) 40 mg Tablet, Delayed Release (E.C.) Take 1 tablet by mouth daily. 90 tablet 3 No current facility-administered medications on file prior to encounter. Allergies: Aspirin Social History and Habits: Social [...] Last attempt to quit: 2000 Years since quittin.8 ??? Smokeless tobacco: Never [...] file Gets together: Not on file Attends quaker service: Not on file Active member of [...] ALT 29 07/14/2019 PROT 8.2 (H) 07/14/2019 Imaging: MRI of the Abdomen - 07/14/19 Physical Exam: Pending (to be performed in angio the day of procedure) ASA: Pending (to be assessed in angio the day of procedure) Mallampati Class: Pending (to be assessed in angio the day of procedure) Assessment: 64 y.o. 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 Consensus of the [facility] [place] Liver Tumor Board was treatment with embolization. Plan: Plan Planned procedure: Greenup Hepatic Embolization Labs to be performed day of procedure: No labs Sedation: moderate (conscious sedation) Prophylactic antibiotic : Other (see comments)(Ceftriaxone & Metronidazole) Contrast: Omnipaque Additional medications for procedure: Lidocaine Planned access site: Left Radial vs. Right CROSS TIE CUTTER Position: Supine Consent: Pending 07/29/2019 documented in this encounter Miscellaneous Notes Brief Op Note - Jourdan Heaton DO - 07/31/2019 3:55 PM EST INTERVENTIONAL RADIOLOGY BRIEF PROCEDURE NOTE Patient Name: Bere Henry : 1955 Case Date: 07/31/2019 Operators: Attending: Zeus Berger MD Resident/Fellow/Student: Jourdan Heaton DO Post-operative diagnosis/Indication: hepatocellular carcinoma Name of Procedure Performed: Planned procedure: Greenup Hepatic Embolization Brief description of the procedure: ?? Left radial artery access ?? Celiac and SMA angiograms ?? Greenup arterial embolization with of left hepatic lobe tumor ?? Radial artery compression bland applied with 12 mL of air Findings of the procedure: ?? Left hepatic lobe tumor supplied by branches of replaced right hepatic off of the SMA and replaced left hepatic off of the left gastric ?? Minimal residual tumor blush after bland arterial embolization EBL: <10 mL Specimens: _N/A_ Complications: No immediate Plan/Disposition: To IR recovery, may discharge to Floor with once meets IR/Angio recovery criteria LEFT radial artery compression bland monitoring per protocol Please contact Hospital Medicine for admission orders FULL PROCEDURE NOTE TO FOLLOW IN IMAGE REPORT documented in this encounter Plan of Treatment Scheduled Procedures Name Priority Associated Diagnoses Date/Time EGD, UPPER GI ENDOSCOPY Alcoholic cirrhosis, uns pecified whether ascites present Portal hypertension documented as of this encounter Procedures Procedure Name Priority Date/Time Associated Diagnosis Comme nts IR LIVER BLAND Routine 07/31/2019 3:45 Hepatocellular Results for this EMBOLIZATION PM EST carcinoma procedure are i n the results section. documented in this encounter Results IR Liver Greenup Embolization (07/31/2019 3:45 PM EST) Anatomical Region [...] of posterior left hepatic lobe branch. 6) Greenup embolization of hepatic artery branches supplying the left lobe tumor. Indication for Procedure: 64 y.o. male w ith Alcohol / Hepatitis C cirrhosis and hepatocellular carcinoma. Consensus of the [facility] [place] Liver Tumor Board was treatment with embolization. [...] aspects (including the patient's identity, informed consent, co dical record number, allergies, planned procedure and [...] mL Omnipaque 350; total volume 7 mL). Greenup embolizat ion with the Embozene solution was then performed through the microcatheter . A total of 7 mL of the solution was used. A solution of contrast and 250 micron Em bozene particles was prepared (2 ml of 250 micron particles suspended in 1 mL saline and 4 mL Omnipaque 350; total volume 7 mL). Greenup embolizat ion with the Embozene solution was [...] into the small contributing tumor vessels. Impression: Greenup embolization of left h epatic lobe tumor. Plan/Disposition: 1) To Angio/IR recovery room, may transf er/discharge to Floor/Short Stay Unit when meets criteria. 2) LEFT radial artery compression bland monitoring per protocol 3) Follow-up at GI clinic in 1 month (sc heduled) 4) Follow-up chest/abdomen CT in 1 month (ordered) Air Traffic Supervisor(s): Resident/Fellow: ??Raheem Nichols Attending: Zeus Berger MD [...] MAR Action Action Date Dose Rate Site cefTRIAXone (ROCEPHIN) 1 g New Bag 07/31/2019 12:00 PM EST 1 g 100 mL/hr vial attach to sodium chloride 0.9% 50 mL Mini-Bag Plus 1 g, Intravenous, EVERY 24 HOURS, First dose on Vy 07/31/19 at 1200, Until Discontinued, Administer over 30 Minutes, Indication for (Active or Suspected): Prophylaxis fentaNYL 50 mcg/mL multi-dose injection Given 07/31/2019 3:08 PM EST 25 mcg 25-50 mcg, Intravenous, EVERY 5 MIN PRN, Starting on Vy 07/31/19 at 1137, Until Vy 07/31/19 at 1733, Pain, per unit protocol, - Start dose 50 mcg (reduce dose to 25 mcg if history of sedation sensitivity). - Titration dose 25-50 mcg IV, (based on patient response) every 3 minutes PRN, to maintain procedural pain less than 2 per pain Scale. Maximum dose: 50 mcg/dose, 250 mcg/hour For use in Interventional Radiology (IR) only for procedural sedation with direct provider supervision and verbal order., Angio/IR (Intra-Procedure), Routine Given 07/31/2019 2:57 PM EST 25 mcg Given 07/31/2019 2:43 PM EST 25 mcg heparin (porcine) injection 3,000 Units Given 07/31/2019 12:57 PM EST 3,000 Units 3,000 Units, Intra-arterial, ONCE, 1 dose, On Vy 07/31/19 at 1200, For radial artery access. For use in Interventional Radiology (IR) only for procedure with direct provider supervision and verbal order., Angio/IR (Intra-Procedure), Routine iodixanol (VISIPAQUE) 320 mg iodine/mL Given 07/31/2019 4:12 PM EST 70 mLs injection 150 mL 150 mL, Intra-arterial, ONCE PRN, 1 dose, Starting on Vy 07/31/19 at 1611, Until Vy 07/31/19 at 1612, Per Protocol, Angio/IR (Intra-Procedure), Routine iohexol (OMNIPAQUE) 350 mg/mL solution 5 0 mL Given 07/31/2019 4:11 PM EST 50 mLs 50 mL, Intravenous, ONCE PRN, 1 dose, Starting on Vy 07/31/19 at 1137, Until Vy 07/31/19 at 1611, Per Protocol, For use in Interventional Radiology (IR) only for procedure with direct provider supervision and verbal order., Angio/IR (Intra-Procedure), Routine lidocaine (XYLOCAINE) 10 mg/mL (1 %) Given 07/31/2019 12:[address] 10 mg injection 10 mg 10 mg, Subcutaneous, ONCE, 1 dose, On Vy 07/31/19 at 1200, For use in Interventional Radiology (IR) only for procedure with direct provider supervision and verbal order., Angio/IR (Intra-Procedure), Routine metroNIDAZOLE (FLAGYL) 500 mg in New Bag 07/31/2019 12:[address] 500 mg 200 mL/hr sodium chloride 0.9% 100 mL 500 mg, Intravenous, ONCE, 1 dose, On Vy 07/31/19 at 1200, Administer over 30 Minutes, Indication for (Active or Suspected): Prophylaxis midazolam (PF) (VERSED) multi-dose injection Given 03/2019 3:07 PM EST 0.5 mg 0.5-1 mg 0.5-1 mg, Intravenous, EVERY 3 MIN PRN, Starting on Vy 07/31/19 at 1137, Until Vy 07/31/19 at 1733, Sleep, - Start dose; 1 mg (Reduce dose to 0.5 mg if history of sedation sensitivity). - Titration dose: 0.5 mg - 1 mg (based on patient response) every 3 minutes PRN to obtain RASS score of -3. Maximum dose: 1 mg per dose, 5 mg/hour. For use in Interventional Radiology (IR) only for procedural sedation with direct provider supervision and verbal order., Angio/IR (Intra-Procedure), Routine Given 07/31/2019 2:57 PM EST 0.5 mg Given 07/31/2019 2:40 PM EST 0.5 mg nitroGLYcerin 100 mcg/mL intracoronary Given 07/31/2019 12:57 PM EST 200 mcg dilution 200 mcg 200 mcg, Intra-arterial, ONCE, 1 dose, On Vy 07/31/19 at 1200, For radial artery access. For use in Interventional Radiology (IR) only for procedure with direct provider supervision and verbal order., Angio/IR (Intra-Procedure), Routine oxyCODONE (ROXICODONE) immediate release tablet Given 07/31/2019 4:45 PM EST 5 mg 5 mg 5 mg, Oral, ONCE, 1 dose, On Vy 07/31/19 at 1700, Routine sodium chloride 0.9 % (flush) flush 5 mL Given 07/31/2019 12:00 PM EST 5 mLs 5 mL, Intravenous, EVERY 12 HOURS, First dose on Vy 07/31/19 at 1200, Until Discontinued, Angio/IR (Day of Procedure), Routine sodium chloride 0.9% infusion New Bag 07/31/2019 12:00 PM EST 50 mL/hr 50 mL/hr 50 mL/hr, Intravenous, CONTINUOUS, Starting on Vy 07/31/19 at 1200, Until Vy 07/31/19 at 1733, Angio/IR (Day of Procedure) verapamil (ISOPTIN) injection 2.5 mg Given 07/31/2019 12:57 PM EST 2.5 mg 30 mL/hr 2.5 mg, Intra-arterial, ONCE, 1 dose, On Vy 07/31/19 at 1200, Administer over 2 Minutes, For radial artery access. For use in Interventional Radiology (IR) only for procedure with direct provider supervision and verbal order., Angio/IR (Intra-Procedure) documented in this encounter Care Teams Rip Machine Operator Relationship Specialty Start Date End Date Camron Suarez MD PCP - General Family Medicine 05/19/19 [address] [facility] [address] [place] [id number] documented as of this encounter
--- OUTSIDE RECORDS SUMMARY | 2022-07-21 01:19 | XMS_ITS | Encounter Summary ---
:1955 Author Organization [facility] Address [facility] [address] [place] [address] Care Team Providers Name Role Phone Camron Suarez MD Primary Care Provider Encounter Details Date Type Department Care Team Description 07/14/2019 Office Visit [place] [facility] [place], Decompensated hepatic cirrho sis (Primary Dx); [facility] [place] Liver lesion; [place] [phone] [facility] UGIB (upper gastrointestinal bleed); [phone] Center Chronic [place] [address] Social History Tobacco Use Types Packs/Day Years [...] Sign Reading Time Taken Comments Blood Pressure 116/77 07/14/2019 10:34 AM EDT Pulse 98 07/14/2019 10:34 AM EDT Temperature - - Respiratory Rate - - Oxygen Saturation - - Inhaled Oxygen Concentration - - Weight 95.2 kg (209 lb 12.8 oz) 07/14/2019 10:34 AM EDT Height 182.9 cm (6') 07/14/2019 10:34 AM EDT Body Mass Index 28.45 07/14/2019 10:34 AM EDT documented in this encounter Progress Notes Mehdi London PA - 07/14/2019 10:30 AM EDT Images from the original note were not included. Gastroenterology and Hepatology Follow Up Note Patient: [...] early 20s, unknown exact quantities, as of Jun 2019 still drinking 2-3 drinks daily -HCV risk factors: IVDU, GREGORIA, tattoos -HCV RNA 1,260,443 IU/mL on 05/22/19 -Genotype 3 -No HCV treatment to date (unknown diagnosis until 03/2019) -Workup negative for other infectious hepatitis (neg HAV/HBV immunity) Liver lesion, suspected hepatocellular carcinoma -Noted left lobe buldging on non-contrast CT at [facility] March 2019 -Not noted on RUQ ultrasound in hospital -MRI 07/14/19: 55 mm mass in segment 2, read as LI-RADS 5 lesion -Normal AFP 5.6 06/24/19 -CA 19-9 37.0 on 07/14/19 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 Hepatology in 2013 for presumed HH (brother was dx'd) -Does NOT have HH, does not need therapeutic phlebotomies PROBLEM LIST Patient Active Problem List Diagnosis Code ??? UGIB (upper gastrointestinal bleed) K92.2 ??? Cirrhosis, alcoholic K70.30 ??? Esophageal varices I85.00 ??? Acute blood loss anemia D62 ??? Chronic hepatitis C without hepatic coma B18.2 Interval History: Mr. Benjamín Henry is 64 y.o. with a history of decompensated cirrhosis related to untreated HCV and alcoholism. He returns today for follow-up after MRI this morning to follow-up abnormal CT scan in March. I met with him on 06/24/19 for his initial consultation visit. He is feeling generally okay lately. He's been taking the iron supplement intermittently, states that when he takes it that it makes him feel sick. He thinks this causes some stomach upset and nausea. He has not noted any bowel changes and having regular BMs. He denies any other GI bleeding episodes since his last visit. He does admit that he is drinking alcohol again, about 2-3 drinks nightly. This is mostly to help with significant knee pain, mostly left sided. He was told to avoid Tylenol or ibuprofen, and he statesthat no other providers will offer him anything else for pain. He notes a history of lung nodules on prior imaging in the past, was told he should follow-up periodically but hasn't in several years. MEDICATIONS: Current Outpatient Medications Medication Sig Dispense Refill ??? ferrous sulfate 325 mg (65 mg iron) Tablet ??? ddwzwhku-fai-ZN-lycopen-lutein (CENTRUM SILVER MEN) 300-600-300 mcg Tablet Take [...] It makes me bleed. PHYSICAL EXAMINATION: Vitals: 07/14/19 1034 BP: 116/77 BP Location ([facility]): Right arm Patient Position: Sitting BP Cuff Sizes: Adult (25-34 cm) Pulse: 98 Weight: 95.2 kg (209 lb 12.8 oz) Height: 182.9 cm (6') Body mass index is 28.45 kg/m??. Constitutional: Well appearing, appropriate, no acute [...] Recent Results (from the past 24 hour(s)) Carbohydrate Antigen 19-9 Result Value Ref Range CA 19-9 37.0 (H) <=35.0 u/ml Prothrombin Time Result Value Ref Range PT 16.7 (H) 9.4 - 12.5 sec INR 1.4 Comprehensive metabolic panel (non-fasting) Result Value Ref Range Glucose Lvl 59 (L) 65 - 199 mg/dL BUN 9 (L) 10 - 20 mg/dL Creatinine 0.95 0.80 - 1.50 mg/dL Sodium 139 135 - 145 mmol/L Potassium 3.3 (L) 3.5 - 5.0 mmol/L Chloride 102 98 - 107 mmol/L CO2 27 22 - 31 mmol/L Anion Gap 10 5 - 15 mmol/L Calcium 8.5 8.5 - 10.5 mg/dL Total Protein 8.2 (H) 6.1 - 8.0 gm/dL Albumin 3.5 3.2 - 5.2 gm/dL AST 58 (H) 0 - 39 unit/L ALT 29 0 - 55 unit/L Alk Phos 111 40 - 130 unit/L Total Bilirubin 1.0 0.2 - 1.3 mg/dL eGFR 84 >=60 mL/min/1.73 m?? eGFR 98 >=60 mL/min/1.73 m?? Hemogram Result Value Ref Range WBC 3.9 (L) 4.0 - 9.5 x10(3)/mcL RBC 4.72 4.58 - 5.54 x10(6)/mcL Hemoglobin 9.2 (L) 13.7 - 16.5 gm/dL Hematocrit 33.0 (L) 40.5 - 48.5 % MCV 69.9 (L) 82.9 - 93.1 fL MCH 19.5 (L) 27.5 - 32.1 pg MCHC 27.9 (L) 32.0 - 35.7 gm/dL Platelets 105 (L) 145 - 357 x10(3)/mcL RDWSD 55.9 (H) 36.0 - 45.0 fL RDWCV 22.1 (H) 11.4 - 13.8 % MPV 9.0 7.6 - 12.9 fL nRBC % Auto 0.0 % nRBC Abs Auto 0.000 0.000 - 0.000 x10(3)/mcL Differential, Automated Result Value Ref Range Neutrophils % 50.1 % Neutr Abs (ANC) 1.97 1.70 - 6.10 x10(3)/mcL Lymphocytes % 28.1 % Lymphocytes Abs 1.1 0.9 - 3.2 x10(3)/mcL Monocytes % 14.8 % Monocyte Abs 0.6 0.3 - 0.9 x10(3)/mcL Eosinophils % 4.1 % Eosinophils Abs 0.2 0.0 - 0.4 x10(3)/mcL Basophils % 2.6 % Basophils Abs 0.1 0.0 - 0.1 x10(3)/mcL Immature Gran % 0.30 % Haily Gran Abs 0.01 0.00 - 0.04 x10(3)/mcL Scan, Peripheral Blood Result Value Ref Range Plat Estimate Decreased RBC Morphology Abnormal Microcytes 1-5 /HPF Hypochromia Slight Ovalocytes 1-5 /HPF Target Cells 1-5 /HPF MELD-Na score: 10 at 07/14/2019 12:04 PM MELD score: 10 at 07/14/2019 12:04 PM Calculated from: Serum Creatinine: 0.95 mg/dL (Rounded to 1 mg/dL) at 07/14/2019 12:04 PM Serum Sodium: 139 mmol/L (Rounded to 137 mmol/L) at 07/14/2019 12:04 PM Total Bilirubin: 1.0 mg/dL at 07/14/2019 12:04 PM INR(ratio): 1.4 at 07/14/2019 12:04 PM Age: 64 years Imaging: MRI abdomen wwo contrast today: FINDINGS: ?? Prior hepatic interventions: None. Liver Morphology: Nodular contour. Lacelike T2 signal and enhancement pattern suggestive of fibrosis. ?? Focal hepatic lesions: Yes ?? Lesion 1: Bulging the contour of segment 2, series 7 image 22 Size: 55mm Enhancement: Intrinsically T1 hyperintense. Signal intensity increases by 50% immediately after contrast administration consistent with arterial phase hyperenhancement. Washout or pseudocapsule: Pseudocapsule present. No washout. Ancillary features: Mosaic architecture Change from prior: Not applicable LI-RADS: LR-5 ?? Scattered nonenhancing cysts in the right lobe measuring up to 1.6 cm, LR-1. ?? Portal Vein: Widely Patent. Varices: Gastric and splenic Ascites: Trace Spleen: Normal size, no lesions. ?? Bile ducts: Nondilated. Gallbladder: Few stones in the dependent gallbladder lumen. Normal caliber wall. Pancreas: Normal. Adrenals: Normal. Kidneys: 6.3 cm right interpolar simple cyst. 0.9 cm left upper pole nonenhancing lesion is intrinsically T1 hyperintense, consistent with hemorrhagic or proteinaceous cyst. No suspicious lesions or hydronephrosis. ?? Aorta: No aneurysm. Lymph nodes: No enlarged lymph nodes. Bowel: Nondilated, no inflammatory changes. Marrow Signal: Normal. ?? IMPRESSION 1. Large mass in the anterior left hepatic lobe, LR-5 (definitely hepatocellular carcinoma). 2. Cirrhosis and stigmata of portal hypertension including gastric/splenic Varices. ASSESSMENT & PLAN: Benjamín Henry is a 64 y.o. male with decompensated hepatic cirrhosis likely secondary to chronic alcohol abuse and untreated hepatitis C infection, genotype 3. He was [place] [facility] [place]20[place] after presenting to OSH with hematemesis and melena. He was found to have large esophageal varices and g astroesophageal varix now s/p banding protocol and eradicated on recent EGD on 06/24/19. He declined TIPS during hospitalization for fear of postprocedural hepatic encephalopathy. Today's visit was mostly a discussion of his MRI findings of a large, > 5 cm LI- RADS 5 lesion in the left lobe, consistent with definite malignancy. This is in the setting of previously normal AFP. RUQ ultrasound in the hospital did not note this lesion, but OSH CT scan did note a buldging area in the left lobe, though no contrast on the exam to further characterize. I explained to him that I believe this is likely a primary liver cancer, given his risk factors, and that this is potentially treatable with local therapies. We will discuss his case in Liver Tumor Board tomorrow for a consensus on how to proceed with management. He tells me that he is not very interested in the thought of transpl ant, which I did explain to him is the only potential curative treatment for isolated hepatic malignancies. With this lesion > 5 cm however, he would not be a candidate for transplant at the moment and would first need to be treated and down-staged. He is possibly interested in local regional therapies in IR such as microwave ablation or bland/radioembolization. I do not think he is a surgical candidate for resection given the extent of his portal hypertension, but again will discuss with the board tomorrow. As for his HCV infection, we will leave this untreated for now, so if he were to consider transplanthe may receive a HCV+ donor. If he does not pursue transplant, we can consider treating him but willneed to discuss treatment in a separate appointment. He is still significantly anemic with low MCV indicting iron deficiency, but improved. I advised he continue to take the iron supplement if he can tolerate it, but if not we may need to consider IV iron replacement. We still did not get to discuss the fact that he should ideally be on a nonselective beta barbara for secondary bleeding prophylaxis. We did discuss TIPS again and I think he may be interested - in which case he would not need NSBB. Will discuss with liver team whether to pursue this versus NSBB and if perhaps IR can place a TIPS while treating his liver mass. Plan: -Discuss case at Liver Tumor Board tomorrow. Likely will treat with local regional therapy with IR +/- biopsy of the lesion. -We may consider chest CT to survey for metastases, though unlikely in the setting of normal AFP. -Consider TIPS versus NSBB - will discuss with patient in follow-up. -Continue daily iron supplement if tolerated. May need to consider IV iron infusions. -Holding off on HCV treatment for now. -Advised he work on sobriety from alcohol. He will need at least 6 months of complete sobriety if hewere interested in liver transplant. Consider inpatient rehab/detox. -No treatments needed for ascites or encephalopathy. -For pain - may consider addition of gabapentin or other non-narcotic pain medication. Will discuss with liver team. -Follow-up with PCP about possible referral to Orthopedics or a pain specialist. -Follow-up within the month with myself or attending creative strategist. 38 of this 40 minute visit was in [id number] discussion regarding disease, prognosis and treatment. [facility] Section of Gastroenterology [place] [address] Cc: Camron Suarez MD @[email or web address]@ documented in this encounter Plan of Treatment Scheduled Procedures Name Priority Associated Diagnoses Date/Time EGD, UPPER GI ENDOSCOPY Alcoholic cirrhosis, uns pecified whether ascites present Portal hypertension documented as of this encounter Procedures Procedure Name Priority Date/Time Associated Diagnosis Comme nts SCAN, PERIPHERAL Routine 07/14/2019 12:04 Results for this BLOOD PM EDT procedure are i n the results section. HEMOGRAM Routine 07/14/2019 12:04 Decompensated hepatic Re sults for this PM EDT cirrhosis procedure are i n the results section. DIFFERENTIAL, Routine 07/14/2019 12:04 Decompensated hepatic R esults for this AUTOMATED PM EDT cirrhosis procedure are i n the results section. HC VENIPUNCTURE Routine 07/14/2019 12:04 Decompensated hepatic Results for this PM EDT cirrhosis procedure are in Liver lesion the results section. HC PROTHROMBIN TIME Routine 07/14/2019 12:04 Decompensated hep atic Results for this PM EDT cirrhosis procedure are i n the results section. HC CBC,PLT & AUTO Routine 07/14/2019 12:04 Decompensated hepat ic DIFF PM EDT cirrhosis COMPREHENSIVE Routine 07/14/2019 12:04 Decompensated hepatic R esults for this METABOLIC PANEL PM EDT cirrhosis procedure ar e in (NON-FASTING) the results section. documented in this encounter Results Scan, Peripheral Blood (07/14/2019 12:04 PM EDT) Patholo gist Method Time Signature Plat Estimate Decreased [facility] RBC Morphology Abnormal [facility] Microcytes 1-5 /HPF [facility] Hypochromia Slight [facility] Ovalocytes 1-5 /HPF [facility] Target Cells 1-5 /HPF [facility] Specimen Anatomical Collection Method Collection Time Receive d Time (Source) Location / / Volume Laterality Blood specimen 07/14/2019 12:04 9 (specimen) PM EDT 12:14 PM EDT Resulting Agency Comment Spec In Lab Mehdi KESSLER HEMATOLOGY ORDERABLES Performing Organization Address City/State/ZIP [place] [address] [facility] [address] Differential, Automated (07/14/2019 12:04 PM EDT) P athologist Signature Neutrophils % 50.1 % [facility] Neutr Abs (ANC) 1.97 1.70 - [facility] 6.10 [facility] x10(3)[facility] LAB[facility]ORY Lymphocytes % 28.1 % [facility] Lymphocytes Abs 1.1 0.9 - 3.2 [facility] x10(3)[facility] Monocytes % 14.8 % [facility] Monocyte Abs 0.6 0.3 - 0.9 [facility] x10(3)[facility] Eosinophils % 4.1 % [facility] Eosinophils Abs 0.2 0.0 - 0.4 [facility] x10(3)[facility] LABORATORY Basophils % 2.6 % [facility] Basophils Abs 0.1 0.0 - 0.1 [facility] x10(3)[facility] LABORATORY Immature Gran % 0.30 % [facility] Comment: Immature granulocytes(IG's)percentage an d absolute count will include metamyelocytes, myelocytes, and promyelo cytes. Blood smears from CBCs yielding IG's will be scanned manually for concor dance. If this scan disagrees with the automated IG or if promyelocytes are not ed, a manual differential will be performed. Haily Gran Abs 0.01 0.00 - 0.04 x10(3)/[facility] Specimen Anatomical Collection Method Collection Time Receive d Time (Source) Location / / Volume Laterality Blood specimen 07/14/2019 12:04 9 (specimen) PM EDT 12:14 PM EDT Resulting Agency Comment Spec In Lab Mehdi KESSLER HEMATOLOGY ORDERABLES Performing Organization Address City/State/ZIP [place] [address] (ABNORMAL) Hemogram (07/14/2019 12:04 PM EDT) Analysis Performed At Patho logist Time Signature WBC 3.9 (L) 4.0 - 9.5 [facility] x10(3)/[facility] LABORATORY RBC 4.72 4.58 - [facility] x10(6)/[facility] LABORATORY Hemoglobin 9.2 (L) 13.7 - [facility] 16.5 gm/dL [facility] Hematocrit 33.0 (L) 40.5 - [facility] 48.5 % [facility] MCV 69.9 (L) 82.9 - [facility] 93.1 [facility]ORY MCH 19.5 (L) 27.5 - [facility] 32.1 pg [facility] MCHC 27.9 (L) 32.0 - [facility] 35.7 gm/dL [facility] Platelets 105 (L) 145 - 357 [facility] x10(3)/[facility] LABORATORY RDWSD 55.9 (H) 36.0 - [facility] 45.0 [facility] LAB[facility]ATORY RDWCV 22.1 (H) 11.4 - [facility] 13.8 % [facility] MPV 9.0 7.6 - 12.9 [facility] LABORATORY nRBC % Auto 0.0 % [facility] nRBC Abs Auto 0.000 0.000 - [facility] 0.000 [facility] x10(3)/[facility] LABORATORY Specimen Anatomical Collection Method Collection Time Receive d Time (Source) Location / / Volume Laterality Blood specimen 07/14/2019 12:04 9 (specimen) PM EDT 12:14 PM EDT Resulting Agency Comment Spec In Lab Mehdi KESSLER HEMATOLOGY ORDERABLES Performing Organization Address City/[facility]/ZIP Code [place] [address] (ABNORMAL) Carbohydrate Antigen 19-9 (07/14/2019 12:04 PM EDT) P athologist Signature CA 19-9 37.0 (H) <=35.0 u/ml [facility] Specimen Anatomical Collection Method Collection Time Receive d Time (Source) Location / / Volume Laterality Blood specimen 07/14/2019 12:04 9 (specimen) PM EDT 12:24 PM EDT Resulting Agency Comment Spec In Lab Jia Bledsoe MD CHEMISTRY ORDERABLES Performing Organization Address [facility] [place] [address] (ABNORMAL) Prothrombin Time (07/14/2019 12:04 PM EDT) P athologist Signature PT 16.7 (H) 9.4 - 12.5 [facility] LABORATORY INR 1.4 [facility] Comment: An INR <2.0 [...] Location / / Volume Laterality Blood specimen 07/14/2019 12:04 9 (specimen) PM EDT 12:14 PM EDT Resulting Agency Comment Spec In Lab Jia Bledsoe MD HEMATOLOGY ORDERABLES Performing Organization Address [facility]/ZIP [facility] [place] [address] (ABNORMAL) Comprehensive metabolic panel (non-fasting) (07/14/2019 12:04 PM EDT) P athologist Signature Glucose Lvl 59 (L) 65 - 199 [facility] mg/dL [facility] Comment: Diabetes: >=200 mg/dL plus symp toms BUN 9 (L) 10 - 20 mg/dL [facility] Creatinine 0.95 0.80 - 1.50 mg/dL [facility] Sodium 139 135 - 145 mmol/L [facility] Potassium 3.3 (L) 3.5 - 5.0 mmol/L [facility] Comment: Please note: ??Patients with WBC >100,00 0 may have falsely elevated Potassium levels. ??For accurate Potassium quantif ication in these patients send serum separator tube (gold top) for subsequent determinations. ??Contact the Clinical Chemistry Laboratory if there are any qu estions. Chloride 102 98 - 107 mmol/L [facility] CO2 27 22 - 31 mmol/L [facility] Anion Gap 10 5 - 15 mmol/L [facility] Calcium 8.5 8.5 - 10.5 mg/dL [facility] Total Protein 8.2 (H) 6.1 - 8.0 gm/dL [facility] Albumin 3.5 3.2 - 5.2 gm/dL [facility] AST 58 (H) 0 - 39 unit/L [facility] ALT 29 0 - 55 unit/L [facility] Alk Phos 111 40 - 130 unit/L [facility] Total Bilirubin 1.0 0.2 - 1.3 mg/dL [facility] Estimated GFR 84 >=60 mL/min/1.73 m?? [facility] Comment: The eGFR was calculated using the CKD-EP I equation. As with all creatinine based estimates of kidney function, eGFR values calculated with the CKD-EPI equation are not accurate in patients wi th acute kidney failure, extremes of body mass or the acutely ill. [email or web address] eGFR 98 >=60 mL/min/1.73 m?? [facility] Comment: The eGFR was calculated using the CKD-EP I equation. As with all creatinine based estimates of kidney function, eGFR values calculated with the CKD-EPI equation are not accurate in patients wi th acute kidney failure, extremes of body mass or the acutely ill. [email or web address] Specimen Anatomical Collection Method Collection Time Receive d Time (Source) Location / / Volume Laterality Blood specimen 07/14/2019 12:04 9 (specimen) PM EDT 12:14 PM EDT Resulting Agency Comment Spec In Lab Jia Bledsoe MD CHEMISTRY ORDERABLES Performing Organization Address City/State/ZIP Code Phon e Number [place] [id number] documented in this encounter Visit Diagnoses Diagnosis Decompensated hepatic cirrhosis - Primar y Liver lesion Other specified disorders of liver UGIB (upper gastrointestinal bleed) Hemorrhage of gastrointestinal tract, un specified Chronic hepatitis C without hepatic coma documented in this encounter Care Teams Applied Behavior Science Specialist Relationship Specialty Start Date End Date Camron Suarez MD PCP - General Family Medicine 05/19/19 [address] [facility] [address] [place] [address] documented as of this encounter
--- OUTSIDE RECORDS SUMMARY | 2022-07-21 01:19 | XMS_ITS | Encounter Summary ---
:1955 Author Organization [facility] [place] [address] Care Team Providers Name Role Phone Camron Suarez MD Primary Care Provider Encounter Details Date Type Department Care Team Description 06/05/2019 Telephone Gastroenterology at [facility] [place] [phone] Social History Tobacco Use Types Packs/Day [...] Notes Telephone Encounter - Jojo Lynne - 06/05/2019 11:05 AM EDT Left a third message for patient to call the office for scheduling. A letter will be sent to the patient. documented in this encounter Plan of Treatment Scheduled Procedures Name Priority Associated Diagnoses Date/Time EGD, UPPER GI ENDOSCOPY Alcoholic cirrhosis, uns pecified whether ascites present Portal hypertension documented as of this encounter Visit Diagnoses Not on filedocumented in this encounter Care Teams Stonecutter Assistant Relationship Specialty Start Date End Date Camron Suarez MD PCP - General Family Medicine 05/19/[address] [place] [phone] documented as of this encounter
--- OUTSIDE RECORDS SUMMARY | 2022-07-21 01:19 | XMS_ITS | Encounter Summary ---
:1955 Author Organization [facility] [place] [address] Care Team Providers Name Role Phone Camron Suarez MD Primary Care Provider Encounter Details Date Type Department Care Team Description 06/24/2019 Surgery Gastroenterology at [facility] Butch ParkerD, UPPER GI [facility] [place] [address] [facility] [phone] DR GASTROENTEROLOGY [place] [id number] Social History Tobacco Use Types Packs/Day Years [...] sent through Care Everywhere.EGD (Upper Endoscopy): Post-op (Haitian)documented in this encounter Medications at Time of Discharge Medication Sig Dispensed Refills Start Date End Date triamterene-hydrochloroth Take 1 capsule by 0 iazide (DYAZIDE) 37.5-25 mouth every morning. mg Capsule CEROVITE SENIOR Tablet 0 05/15/2019 ferrous sulfate 325 mg 0 05/15/2019 (65 mg iron) Tablet [id number]-MI-lycopen-l Take by mouth. 0 08/03/2019 utein (CENTRUM [...] Component Value Ref Test Analysis Performed At [facility] gist Range Method Time Signature UPPER GI [facility] ENDOSCOPY Endoscopy Procedure Date: 06/24/2019 3:35 PM ? Patient Name: Benjamín Henry ? Date of : 1955 ? Age: 64 ? Order #: [id number] ? Instrument Name: [id number] ? Procedure: ? Upper GI endoscopy Indications: ? Cirrhosis with suspected esophageal ? varices Providers: ? Butch Parker MD, Rory anderson ? Matilda Pavon, ? Taproom Attendant Referring : ?Camron Suarez MD Medicines: ? [...] reactions. The ? Endoscope was introduced thro [facility] the ? mouth, and [facility] ? [facility] duodenum. The patient [...] Procedure) documented in this encounter Care Teams In Store Marketing Representative Relationship Specialty Start Date End Date Camron Suarez MD PCP - General Family Medicine 05/19/19 44 [facility] [address] [place] [address] documented as of this encounter
--- OUTSIDE RECORDS SUMMARY | 2022-07-21 01:19 | XMS_ITS | Encounter Summary ---
:1955 Author Organization [facility] [place] [address] Care Team Providers Name Role Phone Camron Suarez MD Primary Care Provider Encounter Details Date Type Department Care Team Description 07/17/2019 Telephone Gastroenterology at [facility] Mehdi London PA [facility] [place] [address] [place] [id number] [place] [address] [phone] (Wo rk) Social History Tobacco Use Types [...] Encounter - Mehdi London PA - 07/17/2019 4:16 PM EDT I spoke with Mr. Henry. 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 He agreeable to this and will await a phone call from IR (likely Dr. Berger) to discuss the procedure in more detail and get him scheduled soon. Also explained that we will likely want to perform a CT chest combined with multiphasic abdominal CT 1 month post- op. I would liketo see him back in clinic in about a month as well, which may be sooner than the procedure is scheduled for, depending on availability with IR. He is trying his best to take the iron supplement but he does believe this causes stomach upset. Discussed continuing this for another week or so and if he cannot tolerate, we may need to consider IV iron infusions. Then I addressed his pain. After discussion with my colleagues, we feel it would be safe for him to be on something long-term for pain. Gabapentin is a reasonable option for him at this point, for joint pains, and so we can try this first. If this does not help, then I will probably refer him to a pain specialist here at [facility]. Rx will be ordered for [facility] in [facility]. I will also refill his folic acid. DG Cc: Camron Suarez MD 44 [facility] [address] [place] [address] documented in this encounter Plan of Treatment Scheduled Procedures Name Priority Associated Diagnoses Date/Time EGD, UPPER GI ENDOSCOPY Alcoholic cirrhosis, uns pecified whether ascites present Portal hypertension documented as of this encounter Results (ABNORMAL) Prothrombin Time (09/04/2019 11:27 AM EST) athologist Signature PT 16.7 (H) 9.4 - 12.5 [facility] LABORATORY INR 1.4 [facility] Comment: An INR [...] Organization Address City/State/[place] [address] (ABNORMAL) Comprehensive metabolic panel (non-fasting) (09/04/2019 11:27 AM EST) athologist Signature Glucose Lvl 101 65 - [address] [facility] mg/dL [facility] Comment: Diabetes: >=200 mg/dL plus symp toms BUN 8 (L) 10 - 20 mg/dL [facility] Creatinine 0.71 (L) 0.80 - 1.50 mg/dL [facility] Sodium 136 135 - 145 mmol/L [facility] Potassium 3.3 (L) 3.5 - 5.0 mmol/L [facility] Comment: Please note: ??Patients with WBC >100,00 0 may have falsely elevated Potassium levels. ??For accurate Potassium quantif ication in these patients send serum separator tube (gold top) for subsequent determinations. ??Contact the Clinical Chemistry Laboratory if there are any qu estions. Chloride 101 98 - 107 mmol/L [facility] CO2 25 22 - 31 mmol/L [facility] Anion Gap 10 5 - 15 mmol/L [facility] Calcium 8.5 8.5 - 10.5 mg/dL [facility] Total Protein 7.9 6.1 - 8.0 gm/dL [facility] Albumin 3.2 3.2 - 5.2 gm/dL [facility] AST 41 (H) 0 - 39 unit/L [facility] ALT 19 0 - 55 unit/L [facility] Alk Phos 114 40 - 130 unit/L [facility] Total Bilirubin 0.9 0.2 - 1.3 mg/dL [facility] Estimated GFR 99 >=60 mL/min/1.73 m?? [facility] Comment: The eGFR was calculated using the CKD-EP I equation. As with all creatinine based estimates of kidney function, eGFR values calculated with the CKD-EPI equation are not accurate in patients wi th acute kidney failure, extremes of body mass or the acutely ill. http://[employer]DHnk[employer] eGFR 115 >=60 mL/min/1.73 m?? [facility] Comment: The eGFR was calculated using the CKD-EP I equation. As with all creatinine based estimates of kidney function, eGFR values calculated with the CKD-EPI equation are not accurate in patients wi th acute kidney failure, extremes of body mass or the acutely ill. http://[employer] Specimen Anatomical Collection Method Collection Time Receive d Time (Source) Location / / Volume Laterality Blood specimen 09/04/2019 11:27 9 (specimen) AM EST 11:39 AM EST Resulting Agency Comment Spec In Lab Jia Bledsoe MD CHEMISTRY ORDERABLES Performing Organization Address City/State/[place] [address] documented in this encounter Visit Diagnoses Diagnosis Decompensated HCV cirrhosis Chronic hepatitis C without mention of h epatic coma Chronic arthralgias of knees and hips Pain in joint, pelvic region and thigh documented in this encounter Care Teams Shaker Out Relationship Specialty Start Date End Date Camron Suarez MD PCP - General Family Medicine 05/19/[address] [id number] documented as of this encounter
--- OUTSIDE RECORDS SUMMARY | 2022-07-21 01:19 | XMS_ITS | Encounter Summary ---
:1955 Author Organization [facility] [place] [address] Care Team Providers Name Role Phone Camron Suarez MD Primary Care Provider Reason for Visit Auth/Cert Specialty Diagnoses / Procedures Referred By Contact Refer red To Contact Diagnoses hepatocellular carcinoma Procedures ARTERIOGRAMS Referral ID Status Reason Start Date Expiration Date Visits Requ ested Visits Authorized [id number] 1 1 Encounter Details Date Type Department Care Team Description 07/31/2019 Surgery [facility] Zeus Aquino MD ARTERIOGRAMS [facility] rive [facility] [place] [address] RADIOLOGY DEPT [phone] [place], [place] [address] (Wo rk) Social History Tobacco [...] on file documented as of this encounter Discharge Summaries Earl Ledbetter MD - 08/01/2019 10:08 PM EST Discharge Summary Patient Name: Benjamín Henry Patient Age: 64 y.o. Language: Tuvaluan Race: White Ethnicity: Not nor Admit date: 07/31/2019 Discharge date and time: 08/03/2019 Attending Physician: Earl Ledbetter MD Discharge Physician: Eugene Ledbetter MD Follow-up Recommendations for Providers: 1. Monitor pain control following bland embolization of HCC 2. Follow-up??at GI clinic in 1 month (scheduled) and follow-up chest/abdomen CT in 1 month (ordered) Inpatient Provider Contact Information: For questions regarding this document or issues relating to this hospitalization on the Medical Service, please contact your inpatient physician through the [facility] [employer] [employer] . Issues after hours and on weekends will be handled by the Hospitalist staff on-call. Discharge Diagnoses (Hospital Problems) and Secondary Diagnoses (Chronic Problems): Active Hospital Problems Diagnosis ??? HCC (hepatocellular carcinoma) Resolved Hospital Problems No resolved problems to display. Active Non-Hospital Problems Diagnosis ??? Chronic hepatitis C without hepatic coma ??? UGIB (upper gastrointestinal bleed) ??? Acute blood loss anemia ??? Cirrhosis, alcoholic ??? Esophageal varices Operations/Major Procedures: Operations: Procedure(s): ARTERIOGRAMS 07/31/2019 Other Major Procedures: None History of Presentation: (per admitting MD) 64 yo M with Hep C/Etoh cirrhosis with known esophageal varices with newly diagnosed HCC who is presenting to IR suite for scheduled elective IR. He was found to have HCC on recent imaging and case discussed in tumor board who recommended IR bland liver embolization. He reports being in usual state of health till morning of presentation and taking his morning medications including his anti-hypertensives. Post-procedure in IR recovery room, he was noted to be hemodynamically stable, afebrile, saturating well on room air, and was only endorsing mild generalized abdominal discomfort. He is being admitted to hospital medicine for close monitoring following procedure for pain control. Hospital Course: 1. HCC s/p bland embolization: Mr. Henry underwent arterial embolization with of left hepatic lobe tumor which was successful. He required pain after the procedure requiring escalation to IV dilaudid onthe day following the procedure. Also had nausea and vomiting. Pain was treated with tylenol prn (keep < 2gm daily with cirrhosis) and oral and IV dilaudid. By the day of discharge pain and nausea were controlled. Pain plan on discharge is just intermittent low dose tylenol. IR referred for GI follow-up and ordered follow-up CT. 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 Vital Signs at Discharge: BP: 130/85, Heart Rate: 81, Temp: 37.2 ??C (99 ??F), Resp: 18, BMI (Calculated): 27.74 Height: 179 cm (5' 10.47) (08/02/19 1208) Weight: 88.9 kg (195 lb 15.8 oz) (08/02/19 120) Functional and Cognitive Status: Clear mentation, ambulatory Important Studies and Lab Data: Labs: Last 3 wbc, hgb, hct plt Recent Labs 08/03/19 0630 08/02/19 0945 07/14/19 1204 WBC 13.1* 13.4* 3.9* HGB 9.9* 10.6* 9.2* HCT 35.4* 37.9* 33.0* PLATELET 114* 116* 105* Last 3 Lytes Recent Labs 08/02/19 0945 07/14/19 1204 06/24/19 1710 NA 131* 139 138 K 3.6 3.3* 3.2* CL 95* 102 103 CO2 24 27 26 BUN 11 9* 9* CREATININE 1.13 0.95 0.81 Last 3 LFTs Recent Labs 08/02/19 0945 07/14/19 1204 06/24/19 1710 04/22/19 0430 04/21/19 0328 04/20/19 0240 AST 151* 58* 47* < > 67* 52* 51* ALT 77* 29 26 < > 29 27 26 ALKPHOS 98 111 77 < > 56 59 74 BILITOT 1.4* 1.0 1.1 < > 1.2 2.1* 1.4* BILIDIR -- -- -- -- 0.7* 1.2* 0.7* < > = values in this interval not displayed. Last Ca, Mg, Phos Recent Labs 08/02/19 0945 CALCIUM 8.3* Last 3 Coags No results for input(s): PT, INR, PTT in the last 168 hours. Last 3 ProBNP, Trop, CK No results for input(s): CK, TROPONINT, PROBNP in the last 168 hours. Last 3 TFT No results for input(s): TSH in the last 7068 hours. Invalid input(s): T4, FT4 Last 3 Lipids No results for input(s): CHLPL, HDL, LDLCHOL, LDLDIRECT, TRIG in the last 7068 hours. Studies: Mri Abdomen Wwo Contrast (generic) 07/14/2019 1. Large mass in the anterior left hepatic lobe, LR-5 (definitely hepatocellular carcinoma). 2. Cirrhosis and stigmata of portal hypertension including gastric/splenic varices. ?? IR embolization liver lesion 07/31/2019: Brief description of the procedure:? Left radial artery access ?? Celiac and SMA angiograms ?? [place]houn arterial embolization with of left hepatic lobe tumor ?? Radial artery compression bland applied with 12 mL of air ?? Findings of the procedure:? Left hepatic lobe tumor supplied by branches of replaced right hepatic off of the SMA and replaced left hepatic off of the left gastric ?? Minimal residual tumor blush after bland arterial embolization Pending Studies and Lab Data: None Discharge Conditions/Prognosis: Stable with improved pain Discharge to: Home Updated Allergies/ADRs: Allergies Allergen Reactions ??? Aspirin Other (See Comments) It makes me bleed. Immunizations Given this Hospitalization: There is no immunization history on file for this patient. Discharge Medications: Your Medications New Medications Dose Details acetaminophen 500 mg Tab Commonly known as: TYLENOL Take 1 tablet by mouth every 6 hours as needed for Pain or Fever (Not to exceed 2gm (4 pills) a day). 500 mg Refills: 0 bisacodyl 10 mg Supp Commonly known as: DULCOLAX Place 1 suppository rectally daily as needed. 10 mg Quantity: 60 suppository Refills: 3 polyethylene glycol 17 gram Pwpk Commonly known as: MIRALAX Take 17 g by mouth daily as needed. 17 g Quantity: 14 each Refills: 0 Continued medications, unchanged Dose Details CEROVITE SENIOR Tab Generic drug: multivitamin with minerals and lutein Refills: 0 ferrous sulfate 325 mg (65 mg iron) Tab Refills: 0 folic acid 1 mg Tab Commonly known as: FOLVITE Take 1 tablet by mouth daily. 1,000 mcg Quantity: 90 tablet Refills: 3 gabapentin 300 mg Cap Commonly known as: NEURONTIN Take 1 capsule by mouth 3 times daily. 300 mg Quantity: 90 capsule Refills: 12 ketoconazole 2 % Crea Commonly known as: NIZORAL Refills: 0 Multivitamin Cmb No.21-Iron-FA 18-400 mg-mcg Tab Take 1 tablet by mouth Daily. 1 tablet Refills: 0 pantoprazole 40 mg Tbec Commonly known as: PROTONIX Take 1 tablet by mouth daily. 40 mg Quantity: 90 tablet Refills: 3 thiamine Commonly known as: Vitamin B-1 Take 1 tablet by mouth daily. 100 mg Quantity: 30 tablet Refills: 3 triamcinolone 0.5 % Crea Commonly known as: ARISTOCORT Refills: 0 triamterene-hydrochlorothiazide 37.5-25 mg Cap Commonly known as: DYAZIDE Take 2 capsules by mouth every morning. 2 capsule Refills: 0 STOPPED Medications CENTRUM SILVER MEN 300-600-300 mcg Tab Generic drug: tjwkzdnt-xfe-FA-lycopen-lutein Smoking Status at Discharge: Social History Tobacco Use Smoking Status Former Smoker ??? Packs/day: 0.50 ??? Years: 13.00 ??? Pack years: 6.50 ??? Types: Cigarettes, Pipe ??? Last attempt to quit: 2000 ??? Years since quittin.8 Smokeless Tobacco Never Used Instructions Given to Patient at Discharge: There are no outpatient Patient Instructions on file for this admission. General Instructions F/u with your doctors Take the bowel regimen we described Its normal to have low grade fevers less than 101 up to 7 days after TACE procedure but because yours have resolved then I would be concerend if they reocurr and you may want to call your outside doctors or even go to the ER if you feel very unwell. Future Appointments and Orders Future Appointments and Orders Future Appointments Provider Department Dept Phone 09/04/2019 11:30 AM LAB, THREE L [facility] Arrive at: [facility] Area 09/04/2019 12:30 PM Mehdi London PA Gastroenterology at [facility] Arrive at: [facility] Area Discharge References/Attachments None documented in this encounter Discharge Instructions Discharge InstructionsEarl Ledbetter MD - 08/03/2019 3:00 PM EST F/u with your doctors Take the bowel regimen we described Its normal to have low grade fevers less than 101 up to 7 days after TACE procedure but because yours have resolved then I would be concerend if they reocurr and you may want to call your outside doctors or even go to the ER if you feel very unwell. documented in this encounter Medications at Time [...] documented as of this encounter Progress Notes Mariza Edgar RN - 08/03/2019 4:24 PM EST Pt d/c home in own transportation. IV removed. Belongings accounted for. Verbalized an understandingof d/c teachings, medications and when to seek medical attention. Earl Haynes MD - 08/02/2019 3:05 PM EST Hospital Medicine Attending Daily Progress Note Admit Date: 07/31/2019 Hospital Day 2 days Active Hospital Problems Diagnosis ??? HCC (hepatocellular carcinoma) Resolved Hospital Problems No resolved problems to display. PMH Active Non-Hospital Problems Diagnosis ??? Chronic hepatitis C without hepatic coma ??? UGIB (upper gastrointestinal bleed) ??? Acute blood loss anemia ??? Cirrhosis, alcoholic ??? Esophageal varices Inpatient Medications: Scheduled ??? folic acid 1 mg Oral Daily ??? gabapentin 300 mg Oral TID ??? pantoprazole 40 mg Oral Daily ??? thiamine 100 mg Oral Daily ??? triamterene-hydrochlorothiazide 2 capsule Oral QAM ??? sodium chloride 0.9 % (flush) 5 mL Intravenous BID ??? enoxaparin 40 mg Subcutaneous Nightly Continuous infusions: PRN: traMADol, ondansetron, sodium chloride 0.9 % (flush), lidocaine, acetaminophen, calcium carbonate Interval History: Some fevers around 100.4 last night, continued pain. Patient feels too unwell to go home so will watch another night. Pending CXR given possibly acute onchronic cough, but this may all be post-TACE syndrome. Still no BM. Transitioning again from dilaudid to tramadol Subjective/ROS: as above Physical Exam Vitals Range last 24 hrs Temperature Temp: [36.7 ??C (98.1 ??F)-38 ??C (100.4 ??F)] Heart Rate Heart Rate: [81] Blood Pressure BP: (111-131)/(70-84) Respiratory Rate Resp: [16-18] SpO2 SpO2: [86 %-96 %] Intake/Output Summary (Last 24 hours) at 08/02/2019 1505 Last data filed at 08/02/2019 1223 Gross per 24 hour Intake 720 ml Output 300 ml Net 420 ml Patient Vitals for the past 168 hrs: Weight 08/02/19 1208 88.9 kg (195 lb 15.8 oz) Body mass index is 27.75 kg/m??. General - Lying in bed, appears uncomfortable, non-toxic HEENT - EOMI Neck - Supple CV - RRR, no m/r/g Lungs - CTA bilaterally Abd - Soft, BS present though slightly hypoactive, TTP upper abdomen, not rigid, no guarding Ext - No pitting edema Neuro - Grossly intact Studies reviewed in eDH. Remarkable for the following: LABS: Last wbc, hgb, hct plt Recent Labs 08/02/19 0945 WBC 13.4* HGB 10.6* HCT 37.9* Last 3 wbc, hgb, hct plt Recent Labs 08/02/19 0945 07/14/19 1204 05/22/19 1409 WBC 13.4* 3.9* 3.0* HGB 10.6* 9.2* 7.8* HCT 37.9* 33.0* 27.1* PLATELET 116* 105* 119* Last 3 Lytes Recent Labs 08/02/19 0945 07/14/19 1204 06/24/19 1710 NA 131* 139 138 K 3.6 3.3* 3.2* CL 95* 102 103 CO2 24 27 26 BUN 11 9* 9* CREATININE 1.13 0.95 0.81 Last 3 LFTs Recent Labs 08/02/19 0945 07/14/19 1204 06/24/19 1710 04/22/19 0430 04/21/19 0328 04/20/19 0240 AST 151* 58* 47* < > 67* 52* 51* ALT 77* 29 26 < > 29 27 26 ALKPHOS 98 111 77 < > 56 59 74 BILITOT 1.4* 1.0 1.1 < > 1.2 2.1* 1.4* BILIDIR -- -- -- -- 0.7* 1.2* 0.7* < > = values in this interval not displayed. Last Ca, Mg, Phos Recent Labs 08/02/19 0945 CALCIUM 8.3* Last 3 Coags No results for input(s): PT, INR, PTT in the last 168 hours. Last 3 ProBNP, Trop, CK No results for input(s): CK, TROPONINT, PROBNP in the last 168 hours. Last 3 TFT No results for input(s): TSH in the last 7068 hours. Invalid input(s): T4, FT4 Last 3 Lipids No results for input(s): CHLPL, HDL, LDLCHOL, LDLDIRECT, TRIG in the last 7068 hours. FSBG Trend No results for input(s): POCGLU in the last 72 hours. MICRO: No results for input(s): URINECULTURE in the last 720 hours. No results for input(s): GRAMSTAIN, BFCX, LOWERRESPCX, TISSUECX in the last 720 hours. No results for input(s): BLOODCX in the last 720 hours. ECG: No results for input(s): DIAGLINE, QTCCALC in the last 720 hours. VASCULAR: No results for input(s): VBTEXTRPT in the last 720 hours. IMAGING: Mri Abdomen Wwo Contrast (generic) 07/14/2019 1. Large mass in the anterior left hepatic lobe, LR-5 (definitely hepatocellular carcinoma). 2. Cirrhosis and stigmata of portal hypertension including gastric/splenic varices. ?? IR embolization liver lesion 07/31/2019: Brief description of the procedure:? Left radial artery access ?? Celiac and SMA angiograms ?? [place] arterial embolization with of left hepatic lobe tumor ?? Radial artery compression bland applied with 12 mL of air ?? Findings of the procedure:? Left hepatic lobe tumor supplied by branches of replaced right hepatic off of the SMA and replaced left hepatic off of the left gastric ?? Minimal residual tumor blush after bland arterial embolization Assessment: Ed is a 64 y/o with EtOH/HCV cirrhosis with known EV with newly diagnosed HCC who presented for bland liver embolization which was successful but ongoing pain requiring IV pain medications.Will admit for ongoing pain control. ?? 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 -however, will order CXR Pa/Lat because patient also feels more malaise and cannot exclude acute worsening of his chronic cough. -he was given ceftriaxone louise-procedure but cannot exclude SBP so will will have low threshold to restart abx if WBC increases. -night team had ordered blood cultures during time of fevers which I will have to f/u. -f/u CBC in AM -has not gotten encephalopathic with constipation but will aggressively increase bowel regiment given several days no BM and it may contribute to his abdominal pain. -now seems to be tolerating tramadol for pain -tolerating tramadol ?? # HCC s/p liver embolization with uncontrolled pain # Hx ETOH/HCV cirrhosis with known varices (MELD 10) - Continue home medication of Triamterene/HCTZ 75/50mg Qdaily -plan is to initiate Epclusa outpatient after more stable 1) Follow-up??at GI clinic in 1 month (scheduled) 2) Follow-up chest/abdomen CT in 1 month (ordered) Anemia, 2/2 to esophageal varix s/p banding Declined TIPS, last bands 05/22, and varices improved on EGD f/u 06/24. persistent iron deficiency. -was started on BID PO iron but having constipation / abdomina discomfort and not likely gut can rarely absorb any more than 325 every other day. -will consider IV iron while inpatient IV access: PIV DVT PPX: Low risk for short stay Anticipated Disposition: Likely tomorrow if pain better controlled and WBC downtrending Team Pager( Coverage 16/04): #[phone] PCP: Camron Suarez MD [phone] Attestation: IPI Certification I certify that I am a [facility] credentialed attending provider with admitting privileges and that the patient meets or has met medical necessity to require an inpatient IPI level of care meeting a minimum of two midnights or is on the [facility] inpatient only procedure list (status C) due to: uncontrolled pain requiring titration of medications to achieve optimal effect and to minimize immediate or severe side effects Earl Ledbetter MD 08/02/2019 Yeison De MSW - 08/02/2019 11:03 AM EST Social Work Note: Received page that pt had questions regarding finances. Spoke with pt via phone. Pt inquired about applying for social security disability. He states that he already has early fdc through socialsecurity (since Age 62). SW offered to provide information on applying for SSDI as well. However, ptdeclined stating that he didn't want to mess up what I have already. No other needs identified. DIXON Avilez [employer]end [employer] Safety Compliance Leader Pager#: [phone] Joaquim Hernadez - 08/02/2019 8:27 AM EST INTERVENTIONAL RADIOLOGY Inpatient Progress Note Admitted 07/31/2019 Procedure(s): [place] Hepatic HCC Embolization - 07/31/19 Post-procedure day: #2 Time of patient encounter: 729 24 Hour Events: Pain has been better controlled since the addition of IV pain medication yesterday. Patient reports soreness in the right upper quadrant. Patient also reports gurgling which is new; however, there is no associated pain or vomiting. He reports having an appetite this morning, and was attempting to o rder breakfast when I entered the room. Oxygen saturation was slightly decreased last evening, 86%, for which 1 L nasal cannula was administered. Patient currently saturating in the 96% range with incentive spirometer at bedside. Additionally, there was a low-grade fever to 100.4 ??F. Last Value 24 Hour Range Temperature 37.2 ??C (99 ??F) Temp: [36.7 ??C (98.1 ??F)-38 ??C (100.4 ??F)] Heart Rate 81 Heart Rate: [81-87] Blood Pressure 113/70 BP: (111-131)/(70-78) Respiratory Rate 16 Resp: [15-16] SpO2 96 % SpO2: [86 %-96 %] Physical Exam GEN No distress. Alert. Responds appropriately to questions. LUNGS Unlabored breathing on room air. ABD Non-tender to palpation. No rebound. Non-distended. Vasc ACCESS LEFT radial artery access site with dressing C/D/I. LEFT hand is warm and well perfused. Labs: Pending Imaging: No interval Assessment: 64 y.o. male with alcoholic/Hep C cirrhosis and hepatocellular carcinoma PPD#2 s/p blandembolization with better control of pain. Plan: ?? Low-grade fever, in the absence of systemic signs of infection, is likely secondary to tumor necrosis / body reaction. Continue to monitor for signs and symptoms of infection. No indication for antibiotics at this time. ?? Continue with pain control. ?? Follow-up in GI clinic in 1 month (already scheduled). ?? Follow-up CT of the chest and abdomen in 1 month (already ordered). ?? Patient is appropriate for discharge from an IR perspective. Fabrizio Cooley RN - 08/01/2019 3:12 PM EST Report called to [facility]. Cynthia Rick MD - 08/01/2019 10:45 AM EST Hospital Medicine Attending Daily Progress Note Admit Date: 07/31/2019 Hospital Day 1 day Active Hospital Problems Diagnosis ??? HCC (hepatocellular carcinoma) Resolved Hospital Problems No resolved problems to display. PMH Active Non-Hospital Problems Diagnosis ??? Chronic hepatitis C without hepatic coma ??? UGIB (upper gastrointestinal bleed) ??? Acute blood loss anemia ??? Cirrhosis, alcoholic ??? Esophageal varices Inpatient Medications: Scheduled ??? folic acid 1 mg Oral Daily ??? gabapentin 300 mg Oral TID ??? pantoprazole 40 mg Oral Daily ??? thiamine 100 mg Oral Daily ??? triamterene-hydrochlorothiazide 2 capsule Oral QAM ??? sodium chloride 0.9 % (flush) 5 mL Intravenous BID ??? enoxaparin 40 mg Subcutaneous Nightly Continuous infusions: PRN: ondansetron, HYDROmorphone OR HYDROmorphone OR HYDROmorphone, HYDROmorphone, sodium chloride 0.9 % (flush), lidocaine, acetaminophen, calcium carbonate Interval History: Admitted after bland liver embolization Required IV pain medication this morning for increased pain Subjective/ROS: Notes increased pain over upper abdomen. Also has hiccups. Tramadol did not help with pain. No fevers or chills. Nauseous this am and did not eat much this am. Able to keep liquids down. Physical Exam Vitals Range last 24 hrs Temperature Temp: [36.6 ??C (97.9 ??F)-36.8 ??C (98.2 ??F)] Heart Rate Heart Rate: [60-87] Blood Pressure BP: (122-133)/(69-81) Respiratory Rate Resp: [15-18] SpO2 SpO2: [96 %-100 %] Intake/Output Summary (Last 24 hours) at 08/01/2019 1552 Last data filed at 08/01/2019 1501 Gross per 24 hour Intake 840 ml Output 1720 ml Net -880 ml No data found. There is no height or weight on file to calculate BMI. General - Lying in bed, appears uncomfortable, non-toxic HEENT - EOMI Neck - Supple CV - RRR, no m/r/g Lungs - CTA bilaterally Abd - Soft, BS present though slightly hypoactive, TTP upper abdomen, not rigid, no guarding Ext - No pitting edema Neuro - Grossly intact Studies reviewed in eDH. Remarkable for the following: LABS: Last wbc, hgb, hct plt No results for input(s): WBC, HGB, HCT in the last 72 hours. Invalid input(s): PLT Last 3 wbc, hgb, hct plt Recent Labs 07/14/19 1204 05/22/19 1409 04/22/19 0430 WBC 3.9* 3.0* 6.6 HGB 9.2* 7.8* 7.7* HCT 33.0* 27.1* 25.0* PLATELET 105* 119* 97* Last 3 Lytes Recent Labs 07/14/19 1204 06/24/19 1710 05/22/19 1409 NA 139 138 137 K 3.3* 3.2* 3.4* CL 102 103 103 CO2 27 26 24 BUN 9* 9* 7* CREATININE 0.95 0.81 0.84 Last 3 LFTs Recent Labs 07/14/19 1204 06/24/19 1710 05/22/19 1409 04/22/19 0430 04/21/19 0328 04/20/19 0240 AST 58* 47* 60* 67* 52* 51* ALT 29 26 31 29 27 26 ALKPHOS 111 77 83 56 59 74 BILITOT 1.0 1.1 1.3 1.2 2.1* 1.4* BILIDIR -- -- -- 0.7* 1.2* 0.7* Last Ca, Mg, Phos No results for input(s): CALCIUM, PHOS in the last 168 hours. Invalid input(s): MAGNESIUM1 Last 3 Coags No results for input(s): PT, INR, PTT in the last 168 hours. Last 3 ProBNP, Trop, CK No results for input(s): CK, TROPONINT, PROBNP in the last 168 hours. Last 3 TFT No results for input(s): TSH in the last 7068 hours. Invalid input(s): T4, FT4 Last 3 Lipids No results for input(s): CHLPL, HDL, LDLCHOL, LDLDIRECT, TRIG in the last 7068 hours. FSBG Trend No results for input(s): POCGLU in the last 72 hours. MICRO: No results for input(s): URINECULTURE in the last 720 hours. No results for input(s): GRAMSTAIN, BFCX, LOWERRESPCX, TISSUECX in the last 720 hours. No results for input(s): BLOODCX in the last 720 hours. ECG: No results for input(s): DIAGLINE, QTCCALC in the last 720 hours. VASCULAR: No results for input(s): VBTEXTRPT in the last 720 hours. IMAGING: Mri Abdomen Wwo Contrast (generic) 07/14/2019 1. Large mass in the anterior left hepatic lobe, LR-5 (definitely hepatocellular carcinoma). 2. Cirrhosis and stigmata of portal hypertension including gastric/splenic varices. ?? IR embolization liver lesion 07/31/2019: Brief description of the procedure:? Left radial artery access ?? Celiac and SMA angiograms ?? [place] arterial embolization with of left hepatic lobe tumor ?? Radial artery compression bland applied with 12 mL of air ?? Findings of the procedure:? Left hepatic lobe tumor supplied by branches of replaced right hepatic off of the SMA and replaced left hepatic off of the left gastric ?? Minimal residual tumor blush after bland arterial embolization ?? Plan/Disposition: 1) To Angio/IR recovery room, may transfer/discharge to Floor/Short Stay Unit when meets criteria. 2) LEFT radial artery compression bland monitoring per protocol 3) Follow-up??at GI clinic in 1 month (scheduled) 4) Follow-up chest/abdomen CT in 1 month (ordered) Assessment: Ed is a 64 y/o with EtOH/HCV cirrhosis with known EV with newly diagnosed HCC who presented for bland liver embolization which was successful but ongoing pain requiring IV pain medications.Will admit for ongoing pain control. ?? Plan: ?? # HCC s/p liver embolization with uncontrolled pain # Hx ETOH/HCV cirrhosis with known varices (MELD 10) - Pt with newly diagnosed HCC - s/p scheduled embolization 07/31 - Ongoing pain today despite tramadol. IV dilaudid prn breakthrough and po dilaudid in place of tramadol - No evidence of bleeding, encephalopathy or fluid overload - Continue Folic acid 1mg Qdaily, Thiamine 100mg Qdaily and FeSO4 325mg Qdaily - Continue home medication of Gabapentin 300mg TID and Protonix 40mg Qdaily - Continue home medication of Triamterene/HCTZ 75/50mg Qdaily - Monitor intake and encourage po - if limited consider hold diuretic for a day IV access: PIV DVT PPX: Low risk for short stay Anticipated Disposition: Likely tomorrow if pain better controlled Team Pager( Coverage 16/04): #[phone] PCP: Camron Suarez MD [phone] Attestation: IPI Certification I certify that I am a [facility] credentialed attending provider with admitting privileges and that the patient meets or has met medical necessity to require an inpatient IPI level of care meeting a minimum of two midnights or is on the [facility] inpatient only procedure list (status C) due to: uncontrolled pain requiring titration of medications to achieve optimal effect and to minimize immediate or severe side effects Cynthia Ash MD 08/01/2019 Jourdan Meeks DO - 08/01/2019 6:51 AM EST INTERVENTIONAL RADIOLOGY Inpatient Progress Note Admitted 07/31/2019 Procedure(s): Calhoun Hepatic Embolization Post-procedure day: #1 Time of patient encounter: 614 24 Hour Events: No acute events. C/o of upper abdominal pain. Last Value 24 Hour Range Temperature 36.8 ??C (98.2 ??F) Temp: [36.6 ??C (97.9 ??F)-36.9 ??C (98.5 ??F)] Heart Rate 78 Heart Rate: [60-78] Blood Pressure 129/77 BP: (97-133)/(56-83) Respiratory Rate 18 Resp: [7-19] SpO2 100 % SpO2: [95 %-100 %] Physical Exam GEN No distress. Alert. Responds appropriately to questions. LUNGS Unlabored breathing on room air. ABD Non-tender to palpation. No rebound. Non-distended. Vasc ACCESS LEFT radial artery access site with dressing C/D/I. LEFT hand is warm and well perfused. Labs: Pending Imaging: No interval Assessment: 64 y.o. male with alcoholic/Hep C cirrhosis and hepatocellular carcinoma PPD#1 s/p blandembolization with ongoing upper abdominal pain without peritonitic signs. Plan: 1) Consider FACILITY MAINTENANCE HELPER or IV pain medications for breakthrough pain. 2) Follow-up at GI clinic in 1 month (scheduled) 3) Follow-up chest/abdomen CT in 1 month (ordered) Roger Lopez RN - 07/31/2019 6:55 PM EST Pt arrived around 17:40. A+O,c/o abdomen pain 03/03, tramadol 50mg given. Pt oriented to unit and placed on [employer] monitor. CTM documented in this encounter H&P Notes Una Pena MD - 07/31/2019 10:36 AM EST Inpatient Hospital Medicine - Admission Note Problem List: Active Hospital Problems Diagnosis ??? HCC (hepatocellular carcinoma) Resolved Hospital Problems No resolved problems to display. Active Non-Hospital Problems Diagnosis ??? Chronic hepatitis C without hepatic coma ??? UGIB (upper gastrointestinal bleed) ??? Acute blood loss anemia ??? Cirrhosis, alcoholic ??? Esophageal varices ID: 64 y.o. Male presents to [facility] for bland liver embolization. History of Present Illness: 64 yo M with Hep C/Etoh cirrhosis with known esophageal varices with newly diagnosed HCC who is presenting to IR suite for scheduled elective IR. He was found to have HCC on recent imaging and case discussed in tumor board who recommended IR bland liver embolization. He reports being in usual state of health till morning of presentation and taking his morning medications including his anti-hypertensives. Post-procedure in IR recovery room, he was noted to be hemodynamically stable, afebrile, saturating well on room air, and was only endorsing mild generalized abdominal discomfort. He is being admitted to hospital medicine for close monitoring following procedure for pain control. Review of Systems: 10 poin ROS negative except as above in HPI Past Medical and Surgical History: Past Medical History: Diagnosis Date ??? Alcohol abuse ??? Cirrhosis, alcoholic ??? Esophageal varices ??? HTN (hypertension) Past Surgical History: Procedure Laterality Date ??? PRO UPPER GI ENDOSCOPY, DIAGNOSTIC N/A 04/20/2019 EGD, UPPER GI ENDOSCOPY performed by Jamie Avalos MD at [facility] ??? PRO UPPER GI ENDOSCOPY, DIAGNOSTIC N/A 05/22/2019 EGD, UPPER GI ENDOSCOPY performed by Jia Bledsoe MD at [facility] ??? PRO UPPER GI ENDOSCOPY, DIAGNOSTIC N/A 06/24/2019 EGD, UPPER GI ENDOSCOPY performed by Butch Parker MD at [facility] ??? PRO UPPER GI ENDOSCOPY, LIGAT VARIX 04/20/2019 EGD, W BAND LIGATION OF ESOPHAGEAL/GASTRIC VARICES performed by Jamie Avalos MD at [facility] Prior To Admission Medications: Medications Prior to Admission Medication Sig Dispense Refill Last Dose ??? ketoconazole (NIZORAL) 2 % Cream 07/30/2019 ??? Multivitamin Cmb No.21-Iron-FA 18-400 mg-mcg Tablet Take 1 tablet by mouth Daily. 07/30/2019 ??? CEROVITE SENIOR Tablet 07/30/2019 ??? triamcinolone (ARISTOCORT) 0.5 % Cream 07/30/2019 ??? gabapentin (NEURONTIN) 300 mg Capsule Take 1 capsule by mouth 3 times daily. 90 capsule 12 07/30/2019 ??? folic acid (FOLVITE) 1 mg Tablet Take 1 tablet by mouth daily. 90 tablet 3 07/30/2019 ??? ferrous sulfate 325 mg (65 mg iron) Tablet 07/30/2019 ??? poulddrs-nti-NO-lycopen-lutein (CENTRUM SILVER MEN) 300-600-300 mcg Tablet Take by mouth. 07/30/2019 ??? triamterene-hydrochlorothiazide (DYAZIDE) 37.5-25 mg Capsule Take 2 capsules by mouth every morning. 07/30/2019 ??? thiamine (THIAMINE) Take 1 tablet by mouth daily. 30 tablet 3 07/30/2019 ??? pantoprazole (PROTONIX) 40 mg Tablet, Delayed Release (E.C.) Take 1 tablet by mouth daily. 90 tablet 3 07/30/2019 Allergies: Allergies Allergen Reactions ??? Aspirin Other (See Comments) It makes me bleed. Family History: No family history on file. Social History and Habits: Social History Socioeconomic [...] file Gets together: Not on file Attends anabaptism service: Not on file Active member of [...] Social History Narrative ??? Not on file Immunizations: There is no immunization history on file for this patient. Physical Exam: Last Set of Vitals and range of vitals over past 24 hours: Last value Range last 24 hrs Temperature Temp: [36.9 ??C (98.5 ??F)] Heart Rate Heart Rate: [60-73] Blood Pressure BP: (97-133)/(56-83) Respiratory Rate Resp: [7-19] SpO2 SpO2: [95 %-100 %] There is no height or weight on file to calculate BMI. GEN: Lying in bed comfortably, NAD, on RA, breathing comfortably, speaking in full sentences HEENT: No jaundice, no conjunctival pallor CVS: RRR, S1+S2+no added sounds CHEST: CTABL, no added sounds ABD: Soft, mildly distended, diffuse mild tenderness to palpation generalized, BS+OSWALDO NEURO: AAO*3, no focal deficits. PSYCH: Normal mood and affect EXT: No edema, rigidity, tremors SKIN: No rash or open wounds Laboratory (Last 24 Hours): No results found for this or any previous visit (from the past 24 hour(s)). Microbiology: Microbiology Results (Last 30 days) No results found for the last 720 hours. Radiology: Mri Abdomen Wwo Contrast (generic) 07/14/2019 1. Large mass in the anterior left hepatic lobe, LR-5 (definitely hepatocellular carcinoma). 2. Cirrhosis and stigmata of portal hypertension including gastric/splenic varices. IR embolization liver lesion 07/31/2019: Brief description of the procedure: ?? Left radial artery access ?? Celiac and SMA angiograms ?? Calhoun arterial embolization with of left hepatic lobe tumor ?? Radial artery compression bland applied with 12 mL of air ?? Findings of the procedure: ?? Left hepatic lobe tumor supplied by branches of replaced right hepatic off of the SMA and replaced left hepatic off of the left gastric ?? Minimal residual tumor blush after bland arterial embolization Other Studies: EKG - Echocardiogram 04/21/2019: 1. The left ventricular chamber size is normal. There is normal global left ventricular systolic function. The quantitative left ventricular ejection fraction by biplane Ernst's method is 63%. There are no left ventricular segmental wall motion abnormalities. 2. Right ventricular chamber size, wall thickness, and systolic function are within normal limits. 3. The left atrium is severely dilated. 4. No significant valvular abnormalities. 5. Other details as noted below. Assessment: 64 yo M with Pmhx Etoh/HCV cirrhosis with newly diagnosed HCC who presented today for bland liver embolization, and tolerated well. He is being admitted to hospital medicine for monitoring following procedure. Plan: # HCC s/p liver embolization: # Hx ETOH/HCV cirrhosis with known varices (MELD 10) - Pt with newly diagnosed HCC - s/p scheduled embolization today - No evidence of bleeding, encephalopathy or fluid overload - Continue Folic acid 1mg Qdaily, Thiamine 100mg Qdaily and FeSO4 325mg Qdaily - Continue home medication of Gabapentin 300mg TID and Protonix 40mg Qdaily - Continue home medication of Triamterene/HCTZ 75/50mg Qdaily Diet No diet orders on file Discharge planning Likely home without services in 24-48 hours pending stable pain control PT/OT/Speech Ordered Lines/Access PIV Santiago catheter NO DVT/GI Prophylaxis Scd, fully ambulatory Code status Full Code Family - PCP Camron Suarez MD [phone] Team (16/04 Coverage) [id number] on 07/31 only, then per care team icon Admit to hospital medicine If currently a smoker - advised about smoking cessation and will provide smoking cessation material and support. Pneumovax and Influenza Immunizations given as needed. Discussed Advanced Directives and Code Status. The patient wishesto be Full Code. A copy of this document will be sent to the patient's Primary Care Physician and/or Referring Physician. Una Pena MD 07/31/2019 documented in this encounter Miscellaneous Notes Plan of Care - Stacy Andujar RN - 08/03/2019 8:01 AM EST Problem: Patient Care Overview Goal: Plan of Care Review Outcome: Ongoing (Interventions Implemented as Appropriate) 08/02/19165508/02/192034 Coping/Psychosocial Plan Of Care Reviewed With -- patient Plan of Care Review Progress no change -- OUTCOME EVALUATION NOTE: OUTCOME SUMMARY: VSS, dim on RA overnight. Pt reported 4-5/10 pain in the LLQ, refused heating pad. Pt reported smallbowel movement at start of shift. Otherwise able to sleep throughout night between care. Pt planned to D/C this morning. PLAN MOVING FORWARD: Monitor pain D/C in AM INDIVIDUALIZED FALL PREVENTION INTERVENTIONS: Patient-specific fall risk factors per assessment: [current deficits]: Generalized Weakness, IV site Assistance [level of assistance required for transfers and ambulation]: Independent Supervision [direct monitoring required during toileting and ADLs]: Independent Surveillance [continuous indirect monitoring]: sera Watson within reach, purposeful rounding Patient-specific fall prevention interventions for sensory deficits provided, if applicable: [X] N/A CPG GOAL OUTCOME EVALUATION: Plan of Care - Mariza Edgar RN - 08/02/2019 4:58 PM EST Problem: Patient Care Overview Goal: Plan of Care Review Outcome: Ongoing (Interventions Implemented as Appropriate) 08/02/191655 Coping/Psychosocial Plan Of Care Reviewed With patient Plan of Care Review Progress no change OUTCOME EVALUATION NOTE: OUTCOME SUMMARY: A&Ox4. VSS. José Manuelo on. Call mead in reach. - c/o of pain, epigastric area. - XR done. - Miralax x2, no results. Supp given, pt self admin. - No PO intake today. PLAN MOVING FORWARD: DC tomorrow. INDIVIDUALIZED FALL PREVENTION INTERVENTIONS: Patient-specific fall risk factors per assessment: [current deficits]: n/a Assistance [level of assistance required for transfers and ambulation]: n/a Supervision [direct monitoring required during toileting and ADLs]: n/a Surveillance [continuous indirect monitoring]: n/a Patient-specific fall prevention interventions for sensory deficits provided, if applicable: [X] No CPG GOAL OUTCOME EVALUATION: Goal: Individualization & Mutuality Outcome: Ongoing (Interventions Implemented as Appropriate) 08/02/19 1140 Mutuality/Individual Preferences What Anxieties, Fears or Concerns Do You Have About Your Health or Care? n/a What Questions Do You Have About Your Health or Care? n/a What Information Would Help Us Give You More Personalized Care? n/a Goal: Fall Prevention-Safe Patient Handling Outcome: Ongoing (Interventions Implemented as Appropriate) 08/02/19 0824 08/02/19 1506 Fay Fall Risk History of Falling 0 -- Secondary Diagnosis 15 -- Ambulatory Aids 0 -- Intravenous Therapy/Heparin/Saline Lock 20 -- Gait/Transferring 0 -- Mental Status 0 -- Score 35 -- OTHER Fay Fall Risk Med -- Restraint Interventions Safety Promotion/Fall Prevention activity supervised;safety round/check completed;nonskid shoes/slippers when out of bed;fall prevention program maintained -- Positioning Body Position independent -- Activity Activity Type -- up ad mandeep Activity Assistance Provided -- independent Goal: Infection Control Outcome: Ongoing (Interventions Implemented as Appropriate) 08/02/19 0824 Safety Interventions Isolation Precautions standard precautions maintained Infection Prevention rest/sleep promoted;single patient room provided Coping Strategies Supportive Measures active listening utilized Plan of Care - Mile Anderson RN - 08/02/2019 6:05 AM EST Problem: Patient Care Overview Goal: Plan of Care Review Outcome: Ongoing (Interventions Implemented as Appropriate) 08/01/19 0539 [id number] Coping/Psychosocial Plan Of Care Reviewed With -- patient Plan of Care Review Progress improving -- OUTCOME EVALUATION NOTE: ?? OUTCOME SUMMARY: Benjamín is now POD #2 bland hepatic embolization for hepatic ca. O2 sat at change of shift was 87% onroom air. O2 1L nc applied and IS given and taught to pt. Instructed to use 10x Q 1 hour. Febrile to38c for 3 consecutive VS checks. Blood cx drawn x 2 drawn. Pt refused tylenol due to his liver disease. Temp was 37.9c at the time. Pain centralized to upper abdomen. Dilaudid 2mg IVx1. Poor PO intake;able to tolerate apple juice. Will continue to monitor. ?? PLAN MOVING FORWARD: Monitor labs and vitals Pain control Encourage PO intake Encourage ambulation IS ?? INDIVIDUALIZED FALL PREVENTION INTERVENTIONS: ?? Patient-specific fall risk factors per assessment: [current deficits]: pain ?? Assistance [level of assistance required for transfers and ambulation]:sba ?? Supervision [direct monitoring required during toileting and ADLs]: sba ?? Surveillance [continuous indirect monitoring]: masimo; call mead in reach; purposeful rounding ?? Patient-specific fall prevention interventions for sensory deficits provided, if applicable: ?? CPG GOAL OUTCOME EVALUATION: ?? Goal: Fall Prevention-Safe Patient Handling Outcome: Ongoing (Interventions Implemented as Appropriate) 08/01/191944 Fay Fall Risk History of Falling 0 Secondary Diagnosis 15 Ambulatory Aids 0 Intravenous Therapy/Heparin/Saline Lock 20 Gait/Transferring 0 Mental Status 0 Score 35 OTHER Fay Fall Risk Med Restraint Interventions Safety Promotion/Fall Prevention activity supervised;nonskid shoes/slippers when out of bed Positioning Body Position independent Activity Activity Type activity adjusted per tolerance;up ad mandeep;ROM, active encouraged Activity Assistance Provided independent Goal: Infection Control Outcome: Ongoing (Interventions Implemented as Appropriate) 08/01/19 0851 08/01/191944 Safety Interventions Isolation Precautions standard precautions maintained -- Infection Prevention -- rest/sleep promoted Coping Strategies Supportive Measures -- active listening utilized;self-care encouraged;self- reflection promoted;self-responsibility promoted;verbalization of feelings encouraged Goal: Discharge Needs Assessment Outcome: Ongoing (Interventions Implemented as Appropriate) 08/01/19 0537 Discharge Needs Assessment Concerns To Be Addressed no discharge needs identified Equipment Needed After Discharge none Current Health Anticipated Changes Related to Illness none Activity/Self Care Review of Systems Equipment Currently Used at Home none Living Environment Transportation Available family or friend will provide Problem: Pain, Acute (Adult) Goal: Identify Related Risk Factors and Signs and Symptoms Related risk factors and signs and symptoms are identified upon initiation of Human Response Clinical Practice Guideline (CPG) Outcome: Ongoing (Interventions Implemented as Appropriate) 08/02/19 0552 Pain, Acute Related Risk Factors (Acute Pain) persistent pain Signs and Symptoms (Acute Pain) facial mask of pain/grimace Goal: Acceptable Pain Control/Comfort Level Patient will demonstrate the desired outcomes by discharge/transition of care. Outcome: Ongoing (Interventions Implemented as Appropriate) 08/02/1952 Pain, Acute (Adult) Acceptable Pain Control/Comfort Level making progress toward outcome Problem: Infection, Risk/Actual (Adult) Goal: Identify Related Risk Factors and Signs and Symptoms Related risk factors and signs and symptoms are identified upon initiation of Human Response Clinical Practice Guideline (CPG) Outcome: Ongoing (Interventions Implemented as Appropriate) 08/02/19 0552 Infection, Risk/Actual Infection, Risk/Actual: Related Risk Factors chronic illness/condition;surgery/procedure Signs and Symptoms (Infection, Risk/Actual) body temperature changes Goal: Infection Prevention/Resolution Patient will demonstrate the desired outcomes by discharge/transition of care. Outcome: Ongoing (Interventions Implemented as Appropriate) 08/02/19 0552 Infection, Risk/Actual (Adult) Infection Prevention/Resolution making progress toward outcome Plan of Care - Fabrizio Banks RN - 08/01/2019 12:46 PM EST Problem: Patient Care Overview Goal: Plan of Care Review Outcome: Ongoing (Interventions Implemented as Appropriate) 08/01/19 0539 08/01/19 0851 Coping/Psychosocial Plan Of Care Reviewed With -- patient Plan of Care Review Progress improving -- OUTCOME EVALUATION NOTE: OUTCOME SUMMARY: Benjamín had an okay day today. POD #1 bland hepatic embolization for hepatic ca. VSS. Pain centralized to upper abdomen. Dilaudid 4mg IVx1. Dilaudid 2mg PO x1. Not passing flatus. Refusing to ambulate d/t pain. Poor PO intake; able to tolerate apple juice. Will continue to monitor PLAN MOVING FORWARD: Monitor labs and vitals Pain control Nausea control Encourage PO intake Encourage ambulation INDIVIDUALIZED FALL PREVENTION INTERVENTIONS: Patient-specific fall risk factors per assessment: [current deficits]: pain Assistance [level of assistance required for transfers and ambulation]:sba Supervision [direct monitoring required during toileting and ADLs]: sba Surveillance [continuous indirect monitoring]: masimo; call mead in reach; purposeful rounding Patient-specific fall prevention interventions for sensory deficits provided, if applicable: CPG GOAL OUTCOME EVALUATION: Plan of Care - Mitch Aguilar RN - 08/01/2019 5:59 AM EST Problem: Patient Care Overview Goal: Plan of Care Review Outcome: Ongoing (Interventions Implemented as Appropriate) 08/01/19 0539 Coping/Psychosocial Plan Of Care Reviewed With patient Plan of Care Review Progress improving 1900 - 0700 OUTCOME EVALUATION NOTE: OUTCOME SUMMARY: Upon assessment patient reported ongoing upper abdominal pain as well as nausea. He declined his HS medications and requested only to have pain medications. He declined tylenol and able to wait until tramadol dose x2 with good effect. Also had some n/v overnight, medicated with PRN zofran x2 with goodeffect. Assessment and VS as documented. Patient also mentioned it has been about 2 days since his last drink, reported drinking 4-5 [employer] Lemonades at home before admission. MD notified. PLAN MOVING FORWARD: Discharge home when stable INDIVIDUALIZED FALL PREVENTION INTERVENTIONS: Patient-specific fall risk factors per assessment: [current deficits]: See assessment Assistance [level of assistance required for transfers and ambulation]: None Supervision [direct monitoring required during toileting and ADLs]: None Surveillance [continuous indirect monitoring]: Hourly rounding documented in this encounter Plan of Treatment Scheduled Procedures Name Priority Associated Diagnoses Date/Time EGD, UPPER GI ENDOSCOPY Alcoholic cirrhosis, uns pecified whether ascites present Portal hypertension documented as of this encounter Procedures Procedure Name Priority Date/Time Associated Comments Diagnosis HEMOGRAM Routine 08/03/2019 6:30 AM Results f or this EST procedure are i n the results section. DIFFERENTIAL, Routine 08/03/2019 6:30 AM Results for this AUTOMATED EST procedure are i n the results section. GREEN TUBE HOLD Routine 08/03/2019 6:30 AM Result s for this EST procedure are i n the results section. HC VENIPUNCTURE Routine 08/03/2019 6:30 AM EST XR CHEST PA AND STAT 08/02/2019 3:29 PM Result s for this LATERAL EST procedure are i n the results section. HEMOGRAM Routine 08/02/2019 9:45 AM Results f or this EST procedure are i n the results section. DIFFERENTIAL, Routine 08/02/2019 9:45 AM Results for this AUTOMATED EST procedure are i n the results section. HC VENIPUNCTURE Routine 08/02/2019 9:45 AM EST COMPREHENSIVE Routine 08/02/2019 9:45 AM Results for this METABOLIC PANEL EST procedure ar e in (NON-FASTING) the results section. HC BLOOD CULTURE- STAT 08/02/2019 12:41 Result s for this AM EST procedure are i n the results section. HC VENIPUNCTURE STAT 08/02/2019 12:41 Results for this AM EST procedure are i n the results section. documented in this encounter Results Green Tube HOLD (08/03/2019 6:30 AM EST) athologist Signature Green Hold Sample in [facility]. [facility] Specimen Anatomical Collection Method Collection Time Receive d Time (Source) Location / / Volume Laterality Blood specimen Venous Draw / 08/03/2019 6:30 AM 2018 6:38 (specimen) Unknown EST AM EST Earl Ledbetter MD CHEMISTRY ORDERABLES Performing Organization Address City/State/ZIP [place] [address] (ABNORMAL) Differential, Automated (08/03/2019 6:30 AM EST) [facility] Method Time Signature Neutrophils % 82.8 % [facility] Neutr Abs (ANC) 10.82 (H) 1.70 - [facility] 6.10 [facility] x10(3)/[facility] L LABORATORY Lymphocytes % 5.6 % [facility] Lymphocytes Abs 0.7 (L) 0.9 - 3.2 [facility] x10(3)/[facility] LABORATORY Monocytes % 10.6 % [facility] Monocyte Abs 1.4 (H) 0.3 - 0.9 [facility] x10(3)/[facility] LABORATORY Eosinophils % 0.1 % [facility] Eosinophils Abs 0.0 0.0 - 0.4 [facility] x10(3)/[facility] LABORATORY Basophils % 0.3 % [facility] Basophils Abs 0.0 0.0 - 0.1 [facility] x10(3)/[facility] LABORATORY Immature Gran % 0.60 % [facility] Comment: Immature granulocytes(IG's)percentage an d absolute count will include metamyelocytes, myelocytes, and promyelo cytes. Blood smears from CBCs yielding IG's will be scanned manually for concor dance. If this scan disagrees with the automated IG or if promyelocytes are not ed, a manual differential will be performed. Haily Gran Abs 0.08 (H) 0.00 - 0.04 x10(3)/[facility] LABORATORY Specimen Anatomical Collection Method Collection Time Receive d Time (Source) Location / / Volume Laterality Blood specimen 08/03/2019 6:30 AM 019 6:37 (specimen) EST AM EST Resulting Agency Comment Spec In Lab Earl Ledbetter MD HEMATOLOGY ORDERABLES Performing Organization Address City/State/ZIP [place] [address] (ABNORMAL) Hemogram (08/03/2019 6:30 AM EST) Analysis Performed At Patho logist Time Signature WBC 13.1 (H) 4.0 - 9.5 [facility] x10(3)/[facility] LABORATORY RBC 5.06 4.58 - [facility] 5.54 [facility] x10(6)/[facility] LABORATORY Hemoglobin 9.9 (L) 13.7 - [facility] 16.[facility] gm/dL [facility] Hematocrit 35.4 (L) 40.5 - [facility] % [facility] MCV 70.0 (L) 82.9 - [facility] 93.1 fL [facility] MCH 19.6 (L) 27.5 - CHRISTY BREEN 32.1 [facility] LABORATORY MCHC 28.0 (L) 32.0 - CHRISTY BREEN 35.7 gm/dL [facility] Platelets 114 (L) 145 - 357 CHRISTY BREEN x10(3)/[facility] LABORATORY RDWSD 54.7 (H) 36.0 - CHRISTY BREEN 45.0 [facility] LABORATORY RDWCV 22.4 (H) 11.4 - CHRISTY BREEN 13.8 % [facility] MPV 9.3 7.6 - 12.9 CHRISTY BREEN [facility] LABORATORY nRBC % Auto 0.0 % [facility] nRBC Abs Auto 0.000 0.000 - CHRISTY BREEN 0.000 [facility] x10(3)/[facility] LABORATORY Specimen Anatomical Collection Method Collection Time Receive d Time (Source) Location / / Volume Laterality Blood specimen 08/03/2019 6:30 AM 019 6:37 (specimen) EST AM EST Resulting Agency Comment Spec In Lab Earl Ledbetter MD HEMATOLOGY ORDERABLES Performing Organization Address City/State/ZIP [place] [address] XR Chest PA & Lateral (Generic) (08/02/2019 3:29 PM EST) Anatomical Region Laterality Modality Chest N/A Digital Radiography Specimen (Source) Anatomical Location Collection Method / Collectio n Time Received Time / Laterality Volume Impressions 08/02/2019 4:19 PM EST Mild LEFT basilar atelectasis. Cannot exclude small component of pneumonia. Thank you for letting us participate in the care of this patient. For questions regarding this report, please contact e number below. ? Narrative 08/02/2019 4:19 PM EST EXAMINATION: XR CHEST PA AND LATERAL (GENERIC) CLINICAL HISTORY: new fevers/malaise, le ukocytosis, maybe worsened chronic cough vs post-TACE syndrome 2 days after. TECHNIQUE: Standing PA and lateral chest COMPARISON: Chest CT 04/19/2019 FINDINGS: Slightly lower lung volumes with mildly elevated LEFT hemidiaphragm and mild LEFT basilar atelectasis. The remainder the LEFT lung and RIGHT lung are clear. No significant pleural effusion. Cardiom ediastinal silhouette stable. Procedure Note Virgilio Fernández MD - 08/02/2019Formatt ing of this note might be different from the original. EXAMINATION: XR CHEST PA AND LATERAL (GE NERIC) CLINICAL HISTORY: new fevers/malaise, le ukocytosis, maybe worsened chronic cough vs post-TACE syndrome 2 days after. TECHNIQUE: Standing PA and lateral chest COMPARISON: Chest CT 04/19/2019 FINDINGS: Slightly lower lung volumes with mildly elevated LEFT hemidiaphragm and mild LEFT basilar atelectasis. The remainder the LEFT lung and RIGHT lung are clear. No significant pleural effusion. Cardiom ediastinal silhouette stable. IMPRESSION Mild LEFT basilar atelectasis. Cannot ex clude small component of pneumonia. Thank you for letting us participate in the care of this patient. For questions regarding this report, please contact e number below. Earl Ledbetter MD IMG DX ORDERABLES (ABNORMAL) Differential, Automated (08/02/2019 9:45 AM EST) [facility] Method Time Signature Neutrophils % 87.0 % [facility] Neutr Abs (ANC) 11.63 (H) 1.70 - [facility] 6.10 [facility] x10(3)/[facility] L LABORATORY Lymphocytes % 5.1 % [facility] Lymphocytes Abs 0.7 (L) 0.9 - 3.2 [facility] x10(3)/[facility] LABORATORY Monocytes % 7.2 % [facility] Monocyte Abs 1.0 (H) 0.3 - 0.9 [facility] x10(3)/[facility] LABORATORY Eosinophils % 0.0 % [facility] Eosinophils Abs 0.0 0.0 - 0.4 [facility] x10(3)/[facility] LABORATORY Basophils % 0.3 % [facility] Basophils Abs 0.0 0.0 - 0.1 [facility] x10(3)/[facility] LABORATORY Immature Gran % 0.40 % [facility] Comment: Immature granulocytes(IG's)percentage an d absolute count will include metamyelocytes, myelocytes, and promyelo cytes. Blood smears from CBCs yielding IG's will be scanned manually for concor dance. If this scan disagrees with the automated IG or if promyelocytes are not ed, a manual differential will be performed. Haily Gran Abs 0.05 (H) 0.00 - 0.04 x10(3)/[facility] LABORATORY Specimen Anatomical Collection Method Collection Time Receive d Time (Source) Location / / Volume Laterality Blood specimen 08/02/2019 9:45 AM 019 (specimen) EST 10:28 AM EST Resulting Agency Comment Spec In Lab Earl Ledbetter MD HEMATOLOGY ORDERABLES Performing Organization Address City/State/ZIP Code Phon e Number [place] [id number] (ABNORMAL) Hemogram (08/02/2019 9:45 AM EST) Analysis Performed At Patho logist Time Signature WBC 13.4 (H) 4.0 - 9.5 [facility] x10(3)/[facility] LABORATORY RBC 5.38 4.58 - [facility] 5.54 [facility] x10(6)/[facility] LABORATORY Hemoglobin 10.6 (L) 13.7 - [facility] 16.5 gm/dL [facility] Hematocrit 37.9 (L) 40.5 - [facility] % [facility] MCV 70.4 (L) 82.9 - [facility] 93.1 fL [facility] MCH 19.7 (L) 27.5 - [facility] 32.1 pg [facility] MCHC 28.0 (L) 32.0 - [facility] 35.7 gm/dL [facility] Platelets 116 (L) 145 - 357 [facility] x10(3)/[facility] LABORATORY RDWSD 55.2 (H) 36.0 - [facility] 45.0 [facility] LABORATORY RDWCV 23.1 (H) 11.4 - [facility] 13.8 % [facility] MPV 9.5 7.6 - 12.9 [facility] LABORATORY nRBC % Auto 0.0 % [facility] nRBC Abs Auto 0.000 0.000 - [facility] 0.000 [facility] x10(3)/[facility] LABORATORY Specimen Anatomical Collection Method Collection Time Receive d Time (Source) Location / / Volume Laterality Blood specimen 08/02/2019 9:45 AM 019 (specimen) EST 10:28 AM EST Resulting Agency Comment Spec In Lab Earl Ledbetter MD HEMATOLOGY ORDERABLES Performing Organization Address City/State/[place] [address] (ABNORMAL) Comprehensive metabolic panel (non-fasting) (08/02/2019 9:45 AM EST) P athologist Signature Glucose Lvl 149 65 - 199 [facility] mg/dL [facility] Comment: Diabetes: >=200 mg/dL plus symp toms BUN 11 10 - 20 mg/dL [facility] Creatinine 1.13 0.80 - 1.50 mg/dL [facility] Sodium 131 (L) 135 - 145 mmol/L [facility] Potassium 3.6 3.5 - 5.0 mmol/L [facility] Comment: Please note: ??Patients with WBC >100,00 0 may have falsely elevated Potassium levels. ??For accurate Potassium quantif ication in these patients send serum separator tube (gold top) for subsequent determinations. ??Contact the Clinical Chemistry Laboratory if there are any qu estions. Chloride 95 (L) 98 - 107 mmol/L [facility] CO2 24 22 - 31 mmol/L [facility] Anion Gap 12 5 - 15 mmol/L [facility] Calcium 8.3 (L) 8.5 - 10.5 mg/dL [facility] Total Protein 8.2 (H) 6.1 - 8.0 gm/dL [facility] Albumin 3.2 3.2 - 5.2 gm/dL [facility] AST 151 (H) 0 - 39 unit/L [facility] ALT 77 (H) 0 - 55 unit/L [facility] Alk Phos 98 40 - 130 unit/L [facility] Total Bilirubin 1.4 (H) 0.2 - 1.3 mg/dL [facility] Estimated GFR 68 >=60 mL/min/1.73 m?? [facility] Comment: The eGFR was calculated using the CKD-EP I equation. As with all creatinine based estimates of kidney function, eGFR values calculated with the CKD-EPI equation are not accurate in patients wi th acute kidney failure, extremes of body mass or the acutely ill. http://[employer] eGFR 79 >=60 mL/min/1.73 m?? [facility] Comment: The eGFR was calculated using the CKD-EP I equation. As with all creatinine based estimates of kidney function, eGFR values calculated with the CKD-EPI equation are not accurate in patients wi th acute kidney failure, extremes of body mass or the acutely ill. http://[employer] Specimen Anatomical Collection Method Collection Time Receive d Time (Source) Location / / Volume Laterality Blood specimen 08/02/2019 9:45 AM 019 (specimen) EST 10:28 AM EST Resulting Agency Comment Spec In Lab Earl Ledbetter MD CHEMISTRY ORDERABLES Performing Organization Address City/State/ZIP [place] [address] Blood culture (08/02/2019 12:41 AM EST) [facility] Method Time Signature Blood Culture No growth [facility] at 5 days. [facility] Specimen Anatomical Collection Method Collection Time Receive d Time (Source) Location / / Volume Laterality Blood specimen STRUCTURE OF LEFT 08/02/2019 12:41 11/0 05/2019 2:41 (specimen) HAND / Unknown AM EST AM EST Resulting Agency Comment Spec In Lab Ligia Christine APRN MICROBIOLOGY - BLOOD ORDERAB LES Performing Organization Address City/[facility]/[place] [address] Blood culture (08/02/2019 12:41 AM EST) [facility] gist Method Time Signature Blood Culture No growth CHRISTY BREEN at 5 days. [facility] Specimen Anatomical Collection Method Collection Time Receive d Time (Source) Location / / Volume Laterality Blood specimen STRUCTURE OF RIGHT 08/02/2019 12:41 05/2019 2:40 (specimen) UPPER LIMB / AM EST AM EST Unknown Resulting Agency Comment Spec In Lab Ligia Christine APRN MICROBIOLOGY - BLOOD ORDERAB LES Performing Organization Address City/[facility]/[place] [address] documented in this encounter Visit Diagnoses Not on filedocumented in this encounter Admitting Diagnoses Diagnosis HCC (hepatocellular carcinoma) Malignant neoplasm of liver, primary documented in this encounter Administered Medications Inactive Administered Medications - up to 3 most recent administrations Medication Order MAR Action Action Date Dose Rate Site bisacodyl (DULCOLAX) suppository 10 Given 08/02/2019 4:40 PM EST 10 mg mg 10 mg, Rectal, DAILY PRN, Starting on 08/02/19 at 1513, Until 08/03/19 at 1836, Constipation, Routine calcium carbonate (Tums) chewable tablet 500-1,000 mg 500-1,000 mg, Oral, EVERY 4 HOURS PRN, S tarting on Vy 07/31/19 at 1637, Until 08/03/19 at 1836, Heartburn, Give 500 mg (1 tablet) for mild to moderate heartburn. Give 1,000 mg (2 tablets) for severe heartburn., [place] enoxaparin (LOVENOX) injection 40 mg Given 08/02/2019 8:37 PM EST 40 mg 40 mg, Subcutaneous, NIGHTLY, First dose on Sun07/31/19 at 2100, Until Discontinued, Routine Given 08/01/2019 8:25 PM EST 40 mg folic acid (FOLVITE) tablet 1,000 mcg Given 08/03/2019 8:10 AM EST 1,000 mcg 1,000 mcg (1 mg), Oral, DAILY, First dose on Sun07/31/19 at 1800, Until Discontinued, Routine Given 08/02/2019 8:21 AM EST 1,000 mcg Given 08/01/2019 8:27 AM EST 1,000 mcg ondansetron (ZOFRAN) injection 4 mg Given 08/01/2019 6:35 AM EST 4 mg 4 mg, Intravenous, EVERY 8 HOURS PRN, Starting on Sun08/01/19 at 0629, Until 08/03/19 at 1836, Nausea, Vomiting pantoprazole (PROTONIX) tablet 40 mg Given 08/03/2019 8:10 AM EST 40 mg 40 mg, Oral, DAILY, First dose on Vy 07/31/19 at 1800, Until Discontinued, DO NOT CRUSH OR OPEN, Routine Given 08/02/2019 8:21 AM EST 40 mg Given 08/01/2019 8:27 AM EST 40 mg polyethylene glycol (MIRALAX) packet 17 g 17 g, Oral, DAILY PRN, Starting on Sun10/02/18 at 1513, Until 08/03/19 at 1836, Constipation, Give second dose if first was not effect oswaldo, Routine sodium chloride 0.9 % (flush) flush 5 mL Given 08/03/2019 8:12 AM EST 5 mLs 5 mL, Intravenous, 2 TIMES DAILY, First dose on Sun07/31/19 at 2100, Until Discontinued, Routine Given 08/02/2019 8:38 PM EST 5 mLs Given 08/02/2019 8:21 AM EST 5 mLs thiamine (Vitamin B-1) tablet 100 mg Given 08/03/2019 8:10 AM EST 100 mg 100 mg, Oral, DAILY, First dose on Vy 07/31/19 at 1900, Until Discontinued, Routine Given 08/02/2019 8:21 AM EST 100 mg Given 08/01/2019 8:28 AM EST 100 mg traMADol (ULTRAM) tablet 50 mg 50 mg, Oral, EVERY 6 HOURS PRN, 3 doses, Starting on 08/02/19 at 1014, Until 08/03/19 at 1836, Pain, Routine triamterene-hydrochlorothiazide (DYAZIDE) Given 08/03/2019 8:10 AM 2 capsules 37.5-25 mg per capsule 2 capsule EST 2 capsule, Oral, EVERY MORNING, First dose on Sun08/01/19 at 0700, Until Discontinued, Routine Given 08/02/2019 6:32 AM EST 2 capsules Given 08/01/2019 6:20 AM EST 2 capsules documented in this encounter Active and Recently Administered Medications Times are shown in EST. Scheduled Medication Order 08/01/2019 08/02/2019 08/03/2019 enoxaparin (LOVENOX) injection 40 mg 2024 (Given - Pro vider: Mile Anderson RN) 2036 (Given - Provider: Stacy Andujar RN) 40 mg, Subcutaneous, NIGHTLY, First dose on Vy 07/31/19 at 2100, Until Discontinued, Routine folic acid (FOLVITE) tablet 1,000 mcg 0827 (Given - Pr ovider: Fabrizio Banks RN) 0821 (Given - Provider: Mariza Edgar RN) 0810 (Gi gabby - Provider: Mariza Edgar RN) 1,000 mcg (1 mg), Oral, DAILY, First dos e on Vy 07/31/19 at 1800, Until Discontinued, Routine gabapentin (NEURONTIN) capsule 300 mg 0827 (Not Given - Provider: Fabrizio Banks RN - Reason: Patient/family refused)1500 (Not Given - Provider: Fabrizio Banks RN - Reason: Patient/family refused)2100 (Not Given - Provider: Mile Anderson RN - Reason: Patient/family refused) 0821 (Not Given - Provider: Mariza Edgar RN - Reason: Patient/family refused)1409 (Not Given - Provider: Mariza Edgar RN - Reason: Patient/family refused)2100 (Not Given - Provider: Stacy Andujar RN - Reason: Patient/family refused) 0811 (Not Given - Provider: Mariza Edgar RN - Reason: Patient/family refused)1500 (Not Given - Provider: Mariza Edgar RN - Reason: Patient/family refused) 300 mg, Oral, 3 TIMES DAILY, First dose on Sun07/31/19 at 2100, Until Discontinued, Routine ondansetron (ZOFRAN) injection 4 mg (COMPLETED) 47 ( Given - Provider: Mitch Aguilar, CLAU) 4 mg, Intravenous, ONCE, 1 dose, Sun08/01/19 at 0100, Pt current ly vomiting. pantoprazole (PROTONIX) tablet 40 mg 826 (Given - Pro vider: Fabrizio Banks RN) 08 (Given - Provider: Mariza Edgar, CLAU) 08 (Gi gabby - Provider: Mariza Edgar, CLAU) 40 mg, Oral, DAILY, First dose on Sun at 1800, Until Discontinued, DO NOT CRUSH OR OPEN, Routine polyethylene glycol (MIRALAX) packet 17 g (COMPLETED) 1049 (Given - Provider: Mariza Edgar, CLAU)1223 (Given - Provider: Mariza Edgar, CLAU) 17 g, Oral, EVERY 2 HOURS SCHEDULED, 2 d oses, First dose on Sun08/02/19 at 1030, Last dose on Sun08/02/19 at 1200, Give second dose if first was not effective, Routine potassium chloride (K-DUR/KLOR-CON) extended release t ablet 20 mEq (COMPLETED) 827 (Given - Provider: Fabrizio Banks RN) 20 mEq, Oral, ONCE, 1 dose, Sun08/01/19 at 0845, 20 mEq tablet may be dissolved in water for administration, Routine sodium chloride 0.9 % (flush) flush 5 mL 828 (Given - Provider: Fabrizio Banks RN)2027 (Given - Provider: Mile Anderson RN) 820 (Given - Provider: Mariza Edgar, CLAU)2037 (Given - Provider: Stacy Andujar RN) 08 (Given - Provider: Mariza Edgar, CLAU) 5 mL, Intravenous, 2 TIMES DAILY, First dose on Sun07/31/19 at 2100, Until Discontinued, Routine thiamine (Vitamin B-1) tablet 100 mg 827 (Given - Pro vider: Fabrizio Banks RN) 08 (Given - Provider: Mariza Edgar, CLAU) 0810 (Gi gabby - Provider: Mariza Edgar RN) 100 mg, Oral, DAILY, First dose on Vy 09/30/18 at 1900, Until Discontinued, Routine triamterene-hydrochlorothiazide (DYAZIDE) 37.5-25 mg p er capsule 2 capsule 0620 (Given - Provider: Mitch Aguilar RN) 0632 (Given - Provider: Mile Anderson RN) 0810 (Given - Provider: Mariza Edgar RN) 2 capsule, Oral, EVERY MORNING, First do se on Sun08/01/19 at 0700, Until Discontinued, Routine PRN Medication Order 08/01/2019 08/02/2019 08/03/2019 acetaminophen (TYLENOL) tablet 650 mg 02 (Not Given - Provider: Mile Anderson RN - Reason: Patient/family refused - Comment: MD requested dose given, pt refused d/t liver fuction.) 650 mg, Oral, EVERY 6 HOURS PRN, Startin g Vy 07/31/19 at 1751, Until 08/03/19 at 1836, Pain, Fever, Administer for temperature greater than or equal to 38.2 degrees celsius. Maximum daily dose of ac etaminophen from all sources not to exceed 4,000 mg., Routine bisacodyl (DULCOLAX) suppository 10 mg 1 640 (Given - Provider: Mariza Edgar RN) 10 mg, Rectal, DAILY PRN, Starting 10/02/18 at 1513, Until 08/03/19 at 1836, Constipation, Routine calcium carbonate (Tums) chewable tablet 500-1,000 mg 500-1,000 mg, Oral, EVERY 4 HOURS PRN, S tarting Vy 07/31/19 at 1637, Until 08/03/19 at 1836, Heartburn, Give 500 mg (1 tablet) for mild to moderate heartburn. Give 1,000 mg (2 tablets) for severe heartburn., Routine HYDROmorphone (DILAUDID) injection 0.4 mg (CANCELED) 0 905 (Given - Provider: Fabrizio Banks RN) 0.4 mg, Intravenous, EVERY 4 HOURS PRN, Starting 08/01/19 at 0656, Until 08/02/19 at 1015, Pain, moderate pain (4-6), May give an additional 0.2 mg in 30 minutes once if pain not relieved., Routine HYDROmorphone (DILAUDID) tablet 2-4 mg (CANCELED) 1221 (Given - Provider: Fabrizio Banks, RN)1624 (Given - Provider: Kris Pereyra, RN) 0038 (Given - Provider: Mile Anderson RN) 2-4 mg, Oral, EVERY 4 HOURS PRN, Startin g 08/01/19 at 1155, Until 08/02/19 at 1015, Pain, 2mg 1-8, 4mg 9-10. Try 2mg first. Thanks!, Routine lidocaine (XYLOCAINE) 10 mg/mL (1 %) injection 3 mg 3 mg (0.3 mL), Subcutaneous, ONCE PRN, 1 dose, Starting Vy 07/31/19 at 1751, Until 08/03/19 at 1836, for discomfort with PIV insertion, Routine ondansetron (ZOFRAN) injection 4 mg 0635 (Given - Provider: Mitch Aguilar RN) 4 mg, Intravenous, EVERY 8 HOURS PRN, St arting 08/01/19 at 0629, Until 08/03/19 at 1836, Nausea, Vomiting polyethylene glycol (MIRALAX) packet 17 g 17 g, Oral, DAILY PRN, Starting Sat 08/02 at 1513, Until 08/03/19 at 1836, Constipation, Give second dose if first was not effective, Routine sodium chloride 0.9 % (flush) flush 5-20 mL 5-20 mL, Intravenous, EVERY 1 MIN PRN, S tarting Vy 07/31/19 at 1751, Until 08/03/19 at 1836, flush, Flush pertains to all indwelling lines. Flush per protocol found in the job aid using the link provided on this medication record., Routine traMADol (ULTRAM) tablet 50 mg 50 mg, Oral, EVERY 6 HOURS PRN, 3 doses, Starting 08/02/19 at 1014, Until 08/03/19 at 1836, Pain, Routine traMADol (ULTRAM) tablet 50-100 mg (CANCELED) 0018 (Gi gabby - Provider: Mtich Aguilar RN)0620 (Given - Provider: Mitch Aguilar RN) 50-100 mg, Oral, EVERY 6 HOURS PRN, Star danag Vy 07/31/19 at 1637, Until 08/01/19 at 1156, Pain, Give 50 mg for mild to moderate pain (1-6). Give 100 mg for severe pain (7-10) If pain not relived afte r 60 minutes by a dose of 50 mg then may repeat 50 mg ONCE. Maximum of 400 mg/day., Routine documented in this encounter Care Teams Litigation Assistant Relationship Specialty Start Date End Date Camron Suarez MD PCP - General Family Medicine 05/19/[address] [phone] documented as of this encounter
--- OUTSIDE RECORDS SUMMARY | 2022-07-21 01:19 | XMS_ITS | Encounter Summary ---
:1955 Author Organization [facility] [place] [address] Care Team Providers Name Role Phone Camron Suarez MD Primary Care Provider Encounter Details Date Type Department Care Team Description 06/06/2019 Orders Only Gastroenterology at [facility] Mehdi London Decompensated hepatic [facility] [place] [address] [facility] [phone] [place] [address] Social History Tobacco Use Types Packs/Day Years [...] of this encounter Plan of Treatment Scheduled Orders Name Type Priority Associated Diagnoses Order S jarocho Comprehensive metabolic Lab Routine Decompensated hep atic Expected: 06/24/2019 panel (non-fasting) cirrhosis (Approxi mate), Expires: 2019 CBC (with Diff) Lab Routine Decompensated hepatic Exp ected: 06/24/2019 cirrhosis (Approximate), Expires: 2019 Prothrombin Time Lab Routine Decompensated hepatic Ex pected: 06/24/2019 cirrhosis (Approximate), Expires: 2019 AFP tumor marker Lab Routine Decompensated hepatic Ex pected: 06/24/2019 cirrhosis (Approximate), Expires: 2019 Scheduled Procedures Name Priority Associated Diagnoses Date/Time EGD, UPPER GI ENDOSCOPY Alcoholic cirrhosis, uns pecified whether ascites present Portal hypertension documented as of this encounter Visit Diagnoses Diagnosis Decompensated hepatic cirrhosis documented in this encounter Care Teams Under Sheriff Relationship Specialty Start Date End Date Camron Suarez MD PCP - General Family Medicine 05/19/[address] [place] [phone] documented as of this encounter
--- OUTSIDE RECORDS SUMMARY | 2022-07-21 01:19 | XMS_ITS | Encounter Summary ---
:1955 Author Organization [facility] [place] [address] Care Team Providers Name Role Phone Camron Suarez MD Primary Care Provider Encounter Details Date Type Department Care Team Description 05/22/2019 Laboratory Lab 3L [place] Hepatic cirrhos is, unspecified hepatic cirrhosis type, unspecified whether ascites present; Appointment [facility] Hepatitis C antibody positive in blood; [facility] Hemochromatosis, unspecified [place] [id number] Social History Tobacco Use Types Packs/Day Years [...] Name Priority Date/Time Associated Diagnosis Comme nts HC VENIPUNCTURE Routine 05/22/2019 2:09 Hepatic cirrhosis, Res ults for this PM EDT unspecified hepatic procedur e are in cirrhosis type, the results unspecified whether section. ascites present Hepatitis C antibody positive in bloo d Hemochromatosis, unspecified hemochromatosis type HEMOGRAM Routine 05/22/2019 2:09 Hepatic cirrhosis, Result s for this PM EDT unspecified hepatic procedur e are in cirrhosis type, the results unspecified whether section. ascites present Hepatitis C antibody positive in bloo d Hemochromatosis, unspecified hemochromatosis type DIFFERENTIAL, Routine 05/22/2019 2:09 Hepatic cirrhosis, Resul ts for this AUTOMATED PM EDT unspecified hepatic procedur e are in cirrhosis type, the results unspecified whether section. ascites present Hepatitis C antibody positive in bloo d Hemochromatosis, unspecified hemochromatosis type HC IRON BINDING Routine 05/22/2019 2:09 Hepatic cirrhosis, Res ults for this CAPACITY PM EDT unspecified hepatic procedur e are in cirrhosis type, the results unspecified whether section. ascites present Hepatitis C antibody positive in bloo d Hemochromatosis, unspecified hemochromatosis type HC HCV GENOTYPING Routine 05/22/2019 2:09 Hepatic cirrhosis, R esults for this PM EDT unspecified hepatic procedur e are in cirrhosis type, the results unspecified whether section. ascites present Hepatitis C antibody positive in bloo d Hemochromatosis, unspecified hemochromatosis type HEPATITIS C RNA, Routine 05/22/2019 2:09 Hepatic cirrhosis, Re sults for this QUANTITATIVE, PCR PM EDT unspecified hepatic pro cedure are in cirrhosis type, the results unspecified whether section. ascites present Hepatitis C antibody positive in bloo d Hemochromatosis, unspecified hemochromatosis type HC PROTHROMBIN TIME Routine 05/22/2019 2:09 Hepatic cirrhosis, Results for this PM EDT unspecified hepatic procedur e are in cirrhosis type, the results unspecified whether section. ascites present Hepatitis C antibody positive in bloo d Hemochromatosis, unspecified hemochromatosis type HC CBC,PLT & AUTO Routine 05/22/2019 2:09 Hepatic cirrhosis, DIFF PM EDT unspecified hepatic cirrhosis type, unspecified whether ascites present Hepatitis C antibody positive in bloo d Hemochromatosis, unspecified hemochromatosis type HC FERRITIN, SERUM Routine 05/22/2019 2:09 Hepatic cirrhosis, Results for this PM EDT unspecified hepatic procedur e are in cirrhosis type, the results unspecified whether section. ascites present Hepatitis C antibody positive in bloo d Hemochromatosis, unspecified hemochromatosis type COMPREHENSIVE Routine 05/22/2019 2:09 Hepatic cirrhosis, Resul ts for this METABOLIC PANEL PM EDT unspecified hepatic proce dure are in (NON-FASTING) cirrhosis type, the results unspecified whether section. ascites present Hepatitis C antibody positive in bloo d Hemochromatosis, unspecified hemochromatosis type documented in this encounter Results (ABNORMAL) Differential, Automated (05/22/2019 2:09 PM EDT) [facility] [place] Method Time Signature Neutrophils % 47.6 % [facility] Neutr Abs (ANC) 1.44 (L) 1.70 - [facility] 6.10 [facility] x10(3)/[facility] LABORATORY Lymphocytes % 32.8 % [facility] Lymphocytes Abs 1.0 0.9 - 3.2 [facility] x10(3)/[facility] LABORATORY Monocytes % 12.6 % [facility] Monocyte Abs 0.4 0.3 - 0.9 [facility] x10(3)/[facility] LABORATORY Eosinophils % 5.0 % [facility] Eosinophils Abs 0.2 0.0 - 0.4 [facility] x10(3)/[facility] LABORATORY Basophils % 1.7 % [facility] Basophils Abs 0.0 0.0 - 0.1 [facility] x10(3)/[facility] LABORATORY Immature Gran % 0.30 % [facility] Comment: Immature granulocytes(IG's)percentage an d absolute count will include metamyelocytes, myelocytes, and promyelo cytes. Blood smears from CBCs yielding IG's will be scanned manually for concor dance. If this scan disagrees with the automated IG or if promyelocytes are not ed, a manual differential will be performed. Haily Gran Abs 0.01 0.00 - 0.04 x10(3)/[facility] Specimen Anatomical Collection Method Collection Time Receive d Time (Source) Location / / Volume Laterality Blood specimen 05/22/2019 2:09 PM 019 2:14 (specimen) EDT PM EDT Resulting Agency Comment Spec In Lab Jia Bledsoe MD HEMATOLOGY ORDERABLES Performing Organization Address City/State/[place] [address] (ABNORMAL) Hemogram (05/22/2019 2:09 PM EDT) Analysis Performed At Patho logist Time Signature WBC 3.0 (L) 4.0 - 9.5 [facility] x10(3)/[facility] LABORATORY RBC 3.79 (L) 4.58 - [facility].54 [facility] x10(6)/[facility] LABORATORY Hemoglobin 7.8 (L) 13.7 - [facility] 16.5 gm/dL [facility] Hematocrit 27.1 (L) 40.5 - [facility] 48.5 % [facility]OR[facility]ORY MCV 71.5 (L) 82.9 - [facility] 93.1 [facility] LABORATORY MCH 20.6 (L) 27.5 - [facility] 32.1 pg [facility] LABORATORY MCHC 28.8 (L) 32.0 - [facility] 35.7 gm/dL [facility] LABOR[facility]ORY Platelets 119 (L) 145 - 357 [facility] x10(3)/[facility] LABORATORY RDWSD 53.9 (H) 36.0 - [facility] 45.0 [facility] LABORATORY RDWCV 21.0 (H) 11.4 - [facility] 13.8 % [facility] LABORATORY MPV 9.6 7.6 - 12.9 [facility] LABORATORY nRBC % Auto 0.0 % [facility] nRBC Abs Auto 0.000 0.000 - [facility] 0.000 [facility] x10(3)/[facility] LABORATORY Specimen Anatomical Collection Method Collection Time Receive d Time (Source) Location / / Volume Laterality Blood specimen 05/22/2019 2:09 PM 019 2:14 (specimen) EDT PM EDT Resulting Agency Comment Spec In Lab Jia Bledsoe MD HEMATOLOGY ORDERABLES Performing Organization Address City/State/[place] [address] Hepatitis C RNA, quantitative, PCR (05/22/2019 2:09 PM EDT) Component Value Ref Test Analysis Performed At [facility] ICEdot Range Method Time Signature HCV Viral 1,260,443 IU/mL [facility] LABORATORY HCV Viral Result: [id number] IU/mL [facility] Indication for Study: Hepatitis C Infection [facility] Analysis: The [employer] RealTime HCV assay is an in vitro reverse alarm signaler LABORATORY polymerase chain reaction (RT-PCR)for the quantitation of hepatitis C viral (HCV) RNA in human serum or plasma (EDTA) from HCV-infected indivi duals. Sample: plasma (0.7 mL minimum volume) Method: [employer] RealTime HCV Assay Linear Range: 12 IU/mL - 100,000,000IU/mL Note: The [employer] RealTime HC V Assay has been approved by the U.S. Food and Drug Administration. Comment: [VERIFIED DATE]05.28.19 Verified By:Marysol Guerrero (Electronic Signature) Specimen Anatomical Collection Method Collection Time Receive d Time (Source) Location / / Volume Laterality Blood specimen 05/22/2019 2:09 PM 019 (specimen) EDT 11:25 AM EDT Resulting Agency Comment Spec In Lab Jia Bledsoe MD IMMUNOLOGY ORDERABLES Performing Organization Address City/State/[place] [address] Hepatitis C genotype (05/22/2019 2:09 PM EDT) Component Value Ref Test Analysis Performed At [facility] Method Time Signature HCV Genotype Indication for study [facility] Hepatitis C Infection [facility] 3 LABORATORY Interpretation: The genotyping analysis has identified t he presence of hepatitis C virus (HCV) genotype 3 in the submitted specimen. Response t o some antiviral therapies is genotype dependent. Please refer to current practice guideli rama and pharmaceutical product inserts for specific recommenda tions on treating this particular HCV genotype. Method: The HCV genotyping was carried out using [employer] eSens or?? HCVg Direct Test. Briefly, nucleic acid isolated from plasma is subjected to a multiplexed reverse transcriptase PCR followed by a direct analysis on the electrochemical RadiumOne XT-8 detection system for the id entification of HCV genotypes. The HCV genotypes/subtypes detected by this method include 1a, 1b, 2a/c, 2b, 3, 4, 5 and 6. Disclaimer: This test was developed and its performance liam acteristics determined by the [facility] ([facility]) Laboratory at [facility]. It has not been cleared or approved by the FDA. The laboratory is regulated under CLIA as qualified to perform high-complexity testing. This jaswant t is used for clinical purposes. It should not be regarded as investigational or fo r research. Comment: [VERIFIED DATE]05.28.19 Verified By:Marysol Guerrero (Electronic Signature) Specimen Anatomical Collection Method Collection Time Receive d Time (Source) Location / / Volume Laterality Blood specimen 05/22/2019 2:09 PM 019 (specimen) EDT 11:25 AM EDT Resulting Agency Comment Spec In Lab Jia Bledsoe MD IMMUNOLOGY ORDERABLES Performing Organization Address City/State/[place] [address] (ABNORMAL) Comprehensive metabolic panel (non-fasting) (05/22/2019 2:09 PM EDT) athologist Signature Glucose Lvl 99 65 - 199 [facility] mg/dL [facility]ORY Comment: Diabetes: >=200 mg/dL plus symp toms BUN 7 (L) 10 - 20 mg/dL [facility] Creatinine 0.84 0.80 - 1.50 mg/dL [facility] Sodium 137 135 - 145 mmol/L [facility] Potassium 3.4 (L) 3.5 - 5.0 mmol/L [facility] Comment: Please note: ??Patients with WBC >100,00 0 may have falsely elevated Potassium levels. ??For accurate Potassium quantif ication in these patients send serum separator tube (gold top) for subsequent determinations. ??Contact the Clinical Chemistry Laboratory if there are any qu estions. Chloride 103 98 - 107 mmol/L [facility] CO2 24 22 - 31 mmol/L [facility] Anion Gap 10 5 - 15 mmol/L [facility] Calcium 8.2 (L) 8.5 - 10.5 mg/dL [facility] Total Protein 7.6 6.1 - 8.0 gm/dL [facility] Albumin 3.1 (L) 3.2 - 5.2 gm/dL [facility] AST 60 (H) 0 - 39 unit/L [facility] ALT 31 0 - 55 unit/L [facility] Alk Phos 83 40 - 130 unit/L [facility] Total Bilirubin 1.3 0.2 - 1.3 mg/dL [facility] Estimated GFR 93 >=60 mL/min/1.73 m?? [facility] Comment: The eGFR was calculated using the CKD-EP I equation. As with all creatinine based estimates of kidney function, eGFR values calculated with the CKD-EPI equation are not accurate in patients wi th acute kidney failure, extremes of body mass or the acutely ill. [email or web address] eGFR 107 >=60 mL/min/1.73 m?? [facility] Comment: The eGFR was calculated using the CKD-EP I equation. As with all creatinine based estimates of kidney function, eGFR values calculated with the CKD-EPI equation are not accurate in patients wi th acute kidney failure, extremes of body mass or the acutely ill. [email or web address] Specimen Anatomical Collection Method Collection Time Receive d Time (Source) Location / / Volume Laterality Blood specimen 05/22/2019 2:09 PM 019 2:13 (specimen) EDT PM EDT Resulting Agency Comment Spec In Lab Jia Bledsoe MD CHEMISTRY ORDERABLES Performing Organization Address City/State/[place] [address] (ABNORMAL) Prothrombin Time (05/22/2019 2:09 PM EDT) P athologist Signature PT 17.0 (H) 9.4 - 12.5 [facility] LABORATORY INR 1.5 [facility] Comment: An INR <2.0 indicates [...] Location / / Volume Laterality Blood specimen 05/22/2019 2:09 PM 019 2:14 (specimen) EDT PM EDT Resulting Agency Comment Spec In Lab Jia Bledsoe MD HEMATOLOGY ORDERABLES Performing Organization Address City/[facility]/ZIP Code Phon e Number [address] (ABNORMAL) Iron and TIBC (05/22/2019 2:09 PM EDT) athologist Signature Iron 13 (L) 45 - 160 [facility] mcg/dL [facility]OR[facility]ORY TIBC 413 250 - 450 [facility] mcg/dL [facility] LABORATORY Iron Saturation 3 (L) 20 - 50 % [facility] Specimen Anatomical Collection Method Collection Time Receive d Time (Source) Location / / Volume Laterality Blood specimen 05/22/2019 2:09 PM 019 2:13 (specimen) EDT PM EDT Resulting Agency Comment Spec In Lab Jia Bledsoe MD CHEMISTRY ORDERABLES Performing Organization Address [facility] [place] [address] (ABNORMAL) Ferritin (05/22/2019 2:09 PM EDT) athologist Signature Ferritin 14 (L) 30 - 400 [facility] NUHA ng/mL [facility] LABORATORY Comment: Pediatric reference ranges not verified at [facility], interpret with caution. Reference ranges for females greater mitchell n 50 years of age approach values for men, i.e., 30-400 ng/mL. Specimen Anatomical Collection Method Collection Time Receive d Time (Source) Location / / Volume Laterality Blood specimen 05/22/2019 2:09 PM 019 2:14 (specimen) EDT PM EDT Resulting Agency Comment Spec In Lab Jia Bledsoe MD CHEMISTRY ORDERABLES Performing Organization Address City/State/ZIP Code [place] [address] HFE (05/22/2019 2:09 PM EDT) Component Value Ref Test Analysis Performed At [facility] gist Range Method Time Signature HFE Mutation HFE GENOTYPING MINDY BREEN RESULTS: [facility] C282Y: HETEROZYGOUS (one copy detected) [facility] H63D: NOT DETECTED LABORATORY INTERPRETATION: Heterozygosity for the C282Y variant alone is generally not associated with hereditary hemochromatosis. In a study by Rosetta et al., 83% of unrelated individuals wi th hereditary hemochromatosis (HH) were homozygous for the C282Y variant, 5% were C282Y/H63D compound heterozygotes, and less than 1% were heterozygous f or the C282Y variant only. Neither of these HFE variants was detected in the remaining 12% of individuals with hemochromatosis. Attempts to define the exact relationship between HFE genoty pes and HH phenotype are complicated by differences in diagnostic criteria, penetrance, variable expressivity and the distinction between clinical d iagnosis and biochemical diagnosis. This test provides information on the genetic basis for iron overload by detecting two missense variants in the hemochromatosis gene, HFE: C282Y ([id number]:c.845G>A; [id number]:p.[id number]; [id number]) a nd H63D ([id number]:c.187C>G; [id number]:p.Ect04Aph; [id number]). T hese disease-associated variants, occur commonly in autosomal rec essive hemochromatosis, type I (HFE1 or hereditary hemochromatosis) . The allele frequencies for C282Y and H63D are approximately 3% and 10%, respectively. These variants cause graded severity of iron accumulation with homozygosity for C282Y being the strongest and heterozygosity for H63D the we akest. Other variants, non-genetic iron excess and various pathophysiolog ic conditions interact with genotype to alter clinical disease phenotype. Disease-producing iron overload can occur with any genotype depend ing on the level and duration of iron exposure, and interacting variables (Tracy 2010). Ge netic analysis assists diagnosis when expression of a clinical phenotype po ssibly due to excess iron is incomplete, for predictin g future disease risk (e.g., in family members) or for explaining elevated levels of ferritin or % transferrin saturation. Referral is suggested for de tailed clinico-pathologic correlation. Rosetta JN, et al. A novel MHC class I-like gene is mutated in patients with hereditary haemochromatosis. Cheri Leah. 1996 Apr;13(4):399-408. (PMID: 4036832) Lei CJ, et al. Penetrance of Hemochr omatosis in HFE Genotypes Resulting in p.Ctd117Kqr and p.[Tgm265Zzu ];[Gxp32Dqo] in the [employer]. Am J Hum Leah. 2015 Jun 24;97(4):512-20. (PMID: 07168756) Connie JOSE, et al. HFE C282Y/H63D compound heterozygotes are at low risk of hemochromatosis-related morbidity. Hepatology. 2009 ;50(1):94-101. (PMID: 68426041) Tracy Mccoy. Genetic mechanisms and modifying factors in heredit jeanine hemochromatosis. Cheri Rev Gastroenterol Hepatol. 2010 Sep;7(1 ):50-8. (PMID: 67807641) Teresita MADRIGAL, et al. Natural history of H FE simple heterozygosity for C282Y and H63D: a prospective 12-year study. J Gastroenterol Hepatol. 2015 Dec;30(4):719-25. (PMID: [id number]) METHOD: The regions of interest in the HFE gene (C282Y and H 63D) are interrogated using a TaqMan allelic discrimination assay. [facility] DNA was isolated from the submitted peripheral blood specimen. Real- time PCR was performed to amplify a short region spanning the variant site, and genotyping was performed by allelic discrimination using a mixture of f luorescently labeled probes, one of which is specific for the reference gene sequence, the other specific for the variant gene. LIMITATIONS AND DISCLAIMERS: Although unlikely, additional rare variants (known or unknown), have the potent ial to interfere with the performance of this test, producing false negative or false positive results. When genotyping results are not consistent with other clinical observations or test re sults, additional testing should be considered. This test was developed and its performance liam acteristics determined by the Clinical [email or web address] Laboratory at [facility]. It has not been cleared or approved by the FDA. The laboratory is regulated under CLIA as qualified to perform high-complexity testing. This jaswant t is used for clinical purposes. It should not be regarded as investigational or fo r research. Comment: [VERIFIED DATE]05.29.19 Verified By:Anitra Antunez, Arturo Ferrari Molecular Pathologist (Electronic Signature) Specimen Anatomical Collection Method Collection Time Receive d Time (Source) Location / / Volume Laterality Blood specimen 05/22/2019 2:09 PM 019 (specimen) EDT 10:12 AM EDT Resulting Agency Comment Spec In Lab Jia Bledsoe MD HEMATOLOGY ORDERABLES Performing Organization Address City/State/[place] [address] documented in this encounter Visit Diagnoses Diagnosis Hepatic cirrhosis, unspecified hepatic c irrhosis type, unspecified whether ascites present Hepatitis C antibody positive in blood Hemochromatosis, unspecified hemochromat osis type documented in this encounter Care Teams Inventory Representative Relationship Specialty Start Date End Date Camron Suarez MD PCP - General Family Medicine 05/19/19 [address] [facility] [address] [place] [id number] documented as of this encounter
--- OUTSIDE RECORDS SUMMARY | 2022-07-21 01:19 | XMS_ITS | Encounter Summary ---
:1955 Author Organization [facility] [place] [address] Care Team Providers Name Role Phone Camron Suarez MD Primary Care Provider Reason for Referral Diagnostic Test (Routine) - Closed Specialty Diagnoses / Procedures Referred By Contact Refer red To Contact Radiology Diagnoses Decompensated hepatic cirrhosis Abnormal CT of the abdomen Mehdi London PA [facility] Rad Mri Procedures MRI Abdomen wwo Contrast (Generic) [facility] [place] [address] [place] [address] Referral ID Status Reason Start Date Expiration Date Visits V isits Requested Authorized [id number] Closed Specialty 1 1 Service Requested Reason for Visit Diagnostic Test (Routine) - Closed Specialty Diagnoses / Procedures Referred By Contact Refer red To Contact Radiology Diagnoses Decompensated hepatic cirrhosis Abnormal CT of the abdomen Mehdi London PA [facility] Rad Mri Procedures MRI Abdomen wwo Contrast (Generic) [facility] [place] [address] [place] [address] Referral ID Status Reason Start Date Expiration Date Visits V isits Requested Authorized [id number] Closed Specialty 1 1 Service Requested Encounter Details Date Type Department Care Team Description 07/14/2019 Hospital Encounter MRI at [facility] Jia Bledsoe MD Decompensated hepatic cirrhosis; [facility] Abnormal CT of the abdomen [facility] [address] [place] [phone] [place], [place] [phone] Social History Tobacco Use Types Packs/Day Years [...] Sig Dispensed Refills Start Date End Date triamterene-hydrochlorothi Take 1 capsule by 0 azide (DYAZIDE) 37.5-25 mg mouth every Capsule morning. ketoconazole (NIZORAL) 2 % 0 9 10/17/2020 Cream CEROVITE SENIOR Tablet 0 05/15/2019 triamcinolone (ARISTOCORT) 0 9 10/17/2020 0.5 % Cream ferrous sulfate 325 mg (65 0 9 01/12/2020 mg iron) Tablet ytgnthro-ycq-PL-lycopen-laci Take by mouth. 0 08/03/2019 tein (CENTRUM SILVER MEN) 300-600-300 mcg Tablet folic acid (FOLVITE) 1 mg Take 1 tablet by 90 tablet 3 03/2607/17/2019 Tablet mouth daily. thiamine (THIAMINE) Take 1 tablet by 30 tablet 3 04/22/2019 10/17/2020 mouth daily. pantoprazole (PROTONIX) 40 Take 1 tablet by 90 tablet 3 11/07/2019 mg Tablet, Delayed Release mouth daily. (E.C.) documented as of this encounter Plan of Treatment Scheduled Procedures Name Priority Associated Diagnoses Date/Time EGD, UPPER GI ENDOSCOPY Alcoholic cirrhosis, uns pecified whether ascites present Portal hypertension documented as of this encounter Procedures Procedure Name Priority Date/Time Associated Diagnosis Comme nts MRI ABDOMEN WWO Routine 07/14/2019 9:04 AM Decompensated hepat ic Results for this CONTRAST EDT cirrhosis procedure are in Abnormal CT of the the resul ts abdomen section. documented in this encounter Results MRI [...] documentation are a vailable online at https://www.acr.org/Clinical-Resources/R prqemxpz-hib-Dpxy-Systems/LI-RADS. This report utilizes LI-RADS version 2018. Thank [...] documentation are a vailable online at https://www.acr.org/Clinical-Resources/R trixwmue-ozz-Mbge-Systems/LI-RADS. This report utilizes LI-RADS version 2018. Thank you for letting us participate in the care of this patient. For questions regarding this report, please contact th e number below. Electronically signed by: Kishan peters, [facility] ([phone]), at 07/14/2019 11:46 AM Jia Bledsoe MD IMG MRI ORDERABLES documented in this encounter Visit Diagnoses Diagnosis Decompensated hepatic cirrhosis Abnormal CT of the abdomen Nonspecific (abnormal) findings on radio logical and other examination of abdominal area, including retroperitoneum documented in this encounter Administered Medications Inactive Administered Medications - up to 3 most recent administrations Medication Order MAR Action Action Date Dose Rate Site gadoterate meglumine (DOTAREM) 0.5 Given 07/14/2019 8:44 AM EDT 18 mLs mmol/mL (376.9 mg/mL) injection 0-100 mL 0-100 mL, Intravenous, ONCE PRN, 1 dose, Starting on Sun07/14/19 at 0847, Until Sun07/14/19 at 0844, Per Protocol, Radiology Contrast, Routine documented in this encounter Care Teams Master Ocean Yacht Relationship Specialty Start Date End Date Camron Suarez MD PCP - General Family Medicine 05/19/[address] [place] [phone] documented as of this encounter
--- OUTSIDE RECORDS SUMMARY | 2022-07-21 01:19 | XMS_ITS | Encounter Summary ---
:1955 Author Organization [facility] [place] [address] Care Team Providers Name Role Phone Camron Suarez MD Primary Care Provider Encounter Details Date Type Department Care Team Description 07/07/2019 Telephone Gastroenterology at [facility] Sherrill Espinosa [facility] [place] [phone] Social History Tobacco Use Types Packs/Day [...] Notes Telephone Encounter - Sherrill Espinosa - 07/07/2019 11:12 AM EDT Calling pt to try to schedule follow up appt with Shahram London after his MRI on 07/14. Per Shahram, please schedule pt during his admin time (10:30 may work best to have the results in time) that day. Also need to see if pt got labs done that Shahram wanted done around 2 weeks ago. If so, we will need to request those results. Left VM for pt to return call. documented in this encounter Plan of Treatment Scheduled Procedures Name Priority Associated Diagnoses Date/Time EGD, UPPER GI ENDOSCOPY Alcoholic cirrhosis, uns pecified whether ascites present Portal hypertension documented as of this encounter Visit Diagnoses Not on filedocumented in this encounter Care Teams Fire Boat Engineer Relationship Specialty Start Date End Date Camron Suarez MD PCP - General Family Medicine 05/19/[address] [place] [address] [address] [place] [phone] documented as of this encounter
--- OUTSIDE RECORDS SUMMARY | 2022-07-21 01:19 | XMS_ITS | Encounter Summary ---
:1955 Author Organization [facility] [place] [address] Care Team Providers Name Role Phone Camron Suarez MD Primary Care Provider Encounter Details Date Type Department Care Team Description 05/28/2019 Telephone Gastroenterology at [facility] [place] [address] Social History Tobacco Use Types Packs/Day Years [...] this encounter Miscellaneous Notes Telephone Encounter - Juliana Nichols - 05/28/2019 3:54 PM EDT Called pt to schedule him for a repeat EGD with banding in 4-6 wks. Case is built. No answer so hermila vm documented in this encounter Plan of Treatment Scheduled Procedures Name Priority Associated Diagnoses Date/Time EGD, UPPER GI ENDOSCOPY Alcoholic cirrhosis, uns pecified whether ascites present Portal hypertension documented as of this encounter Visit Diagnoses Not on filedocumented in this encounter Care Teams Despatching And Receiving Clerk Relationship Specialty Start Date End Date Camron Suarez MD PCP - General Family Medicine 05/19/[address] [place] [address] [address] [place] [phone] documented as of this encounter
--- OUTSIDE RECORDS SUMMARY | 2022-07-21 01:19 | XMS_ITS | Encounter Summary ---
:1955 Author Organization [facility] [place] [address] Care Team Providers Name Role Phone Camron Suarez MD Primary Care Provider Encounter Details Date Type Department Care Team Description 05/28/2019 Telephone [place]ology at [facility] [place] [phone] Social History Tobacco Use Types Packs/Day [...] Notes Telephone Encounter - Jojo Lynne - 05/28/2019 12:27 PM EDT Left message for patient to contact the office for scheduling. Per Dr. Bledsoe, the patient needs to schedule an EGD for rebanding in 4-8 weeks, as well as a NGI with Shahram. documented in this encounter Plan of Treatment Scheduled Procedures Name Priority Associated Diagnoses Date/Time EGD, UPPER GI ENDOSCOPY Alcoholic cirrhosis, uns pecified whether ascites present Portal hypertension documented as of this encounter Visit Diagnoses Not on filedocumented in this encounter Care Teams Substitute Teacher Relationship Specialty Start Date End Date Camron Suarez MD PCP - General Family Medicine 05/19/[address] [place] [phone] documented as of this encounter
--- OUTSIDE RECORDS SUMMARY | 2022-07-21 01:19 | XMS_ITS | Encounter Summary ---
:1955 Author Organization [facility] [place] [address] Care Team Providers Name Role Phone Camron Suarez MD Primary Care Provider Encounter Details Date Type Department Care Team Description 07/01/2019 Orders Only Gastroenterology at [facility] [place] [place] [phone] Social History Tobacco Use Types Packs/Day [...] on filedocumented in this encounter Care Teams Tooling Mechanic Relationship Specialty Start Date End Date Camron Suarez MD PCP - General Family Medicine 05/19/[address] [phone] documented as of this encounter
--- OUTSIDE RECORDS SUMMARY | 2022-07-21 01:19 | XMS_ITS | Encounter Summary ---
:1955 Author Organization [facility] [place] [address] Care Team Providers Name Role Phone Camron Suarez MD Primary Care Provider Encounter Details Date Type Department Care Team Description 05/22/2019 Orders Only Gastroenterology at [facility] Jia Bledsoe MD Hepatic cirrhosis, unspecified hepatic c irrhosis type, unspecified whether ascites present; [facility] mica [facility] Hepatitis C antibody positiv e in blood; [place] [address] Hemochromatosis, unspecified hemochromat osis type [phone] [place] [address] Social History Tobacco Use Types Packs/Day Years [...] hypertension documented as of this encounter Results HFE (05/22/2019 2:09 PM EDT) Component Value Ref Test Analysis Performed At [facility] Range Method Time Signature HFE Mutation HFE GENOTYPING CHRISTY BREEN RESULTS: [facility] 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 In a study by Rosetta, et al., 83% of unrelated individuals wi [...] in the hemochromatosis gene, HFE: C282Y ([id number]:c.845G>A; [id number]:p.Rrq324Mte; [id number]) a nd H63D ([id number]:c.187C>G; NP_000401.1:p.Fcj48Rzc; [id number]). T hese disease-associated variants, occur commonly in [...] hereditary haemochromatosis. Cheri Leah. 1996 Apr;13(4):399-408. (PMID: 8909214) Lei MAYA, et al. Penetrance of Hemochr omatosis in HFE Genotypes Resulting in p.Pim144Qds and p.[Onx752Lch ];[Rxx32Ggp] in the e[employer] Network. Am J Hum Leah. 2015 Jun 24;97(4):512-20. (PMID: 71387082) Connie JOSE, et al. HFE C282Y/H63D compound heterozygotes are at low risk of hemochromatosis-related morbidity. Hepatology. 2009 ;50(1):94-101. (PMID: 01728673) Tracy Mccoy. Genetic mechanisms and modifying factors in heredit jeanine hemochromatosis. Cheri Rev Gastroenterol Hepatol. 2010 Sep;7(1 ):50-8. (PMID: 03769298) Teresita MADRIGAL, et al. Natural history of H FE simple heterozygosity for C282Y and H63D: a prospective 12-year study. J Gastroenterol Hepatol. 2015 Dec;30(4):719-25. (PMID: 49891415) METHOD: The regions of interest in the HFE gene (C282Y and H 63D) are interrogated using a TaqMan allelic discrimination assay. [facility] DNA was isolated from the submitted peripheral [...] performance liam acteristics determined by the Clinical HealthR[employer] and [employer] Laboratory at [facility]. It has not been cleared or approved [...] Bledsoe MD HEMATOLOGY ORDERABLES Performing Organization Address City/[facility]/ZIP [facility] [place] [address] (ABNORMAL) Ferritin (05/22/2019 2:09 PM EDT) athologist Signature Ferritin 14 (L) 30 - 400 [facility] ng/mL [facility] LABORATORY Comment: Pediatric reference ranges not verified at [facility], interpret with caution. Reference ranges for females greater mitchell n 50 years of age approach values for men, i.e., 30-400 ng/mL. Specimen Anatomical Collection Method Collection Time Receive d Time (Source) Location / / Volume Laterality Blood specimen 05/22/2019 2:09 PM 019 2:14 (specimen) EDT PM EDT Resulting Agency Comment Spec In Lab Jia Bledsoe MD CHEMISTRY ORDERABLES Performing Organization Address [facility] [place] [address] (ABNORMAL) Iron and TIBC (05/22/2019 2:09 PM EDT) athologist Signature Iron 13 (L) 45 - 160 [facility] mcg/dL [facility] TIBC 413 250 - 450 [facility] mcg/dL [facility] Iron Saturation 3 (L) 20 - 50 % [facility] LABOR[facility]ORY Specimen Anatomical Collection Method Collection Time Receive d Time (Source) Location / / Volume Laterality Blood specimen 05/22/2019 2:09 PM 019 2:13 (specimen) EDT PM EDT Resulting Agency Comment Spec In Lab Jia Bledsoe MD CHEMISTRY ORDERABLES Performing Organization Address City/[facility]/[place] [address] (ABNORMAL) Prothrombin Time (05/22/2019 2:09 PM EDT) athologist Signature PT 17.0 (H) 9.4 - 12.5 [facility] LABORATORY INR 1.5 [facility] [...] Organization Address City/State/[place] [address] (ABNORMAL) Comprehensive metabolic panel (non-fasting) (05/22/2019 2:09 PM EDT) athologist Signature Glucose Lvl 99 65 - 199 [facility] mg/dL [facility] Comment: Diabetes: >=200 mg/dL plus symp toms BUN 7 (L) 10 - 20 mg/dL [facility] Creatinine 0.84 0.80 - 1.50 mg/dL [facility] LAB[facility] Sodium 137 135 - 145 mmol/L [facility] Potassium 3.4 (L) 3.5 - 5.0 mmol/L [facility]OR[facility] Comment: Please note: ??Patients with WBC >100,00 0 may have falsely elevated Potassium levels. ??For accurate Potassium quantif ication in these patients send serum separator tube (gold top) for subsequent determinations. ??Contact the Clinical Chemistry Laboratory if there are any qu estions. Chloride 103 98 - 107 mmol/L [facility]OR[facility] CO2 24 22 - 31 mmol/L [facility] Anion Gap 10 5 - 15 mmol/L [facility] Calcium 8.2 (L) 8.5 - 10.5 mg/dL [facility] Total Protein 7.6 6.1 - 8.0 gm/dL [facility] Albumin 3.1 (L) 3.2 - 5.2 gm/dL [facility] AST 60 (H) 0 - 39 unit/L [facility] ALT 31 0 - 55 unit/L [facility] Alk Phos 83 40 - 130 unit/L [facility] Total Bilirubin 1.3 0.2 - 1.3 mg/dL [facility] Estimated GFR 93 >=60 mL/min/1.73 m?? [facility] Comment: The eGFR was calculated using the CKD-EP I equation. As with all creatinine based estimates of kidney function, eGFR values calculated with the CKD-EPI equation are not accurate in patients wi th acute kidney failure, extremes of body mass or the acutely ill. [email or web address]://[employer]/[facility]nkf eGFR 107 >=60 mL/min/1.73 m?? [facility] Comment: The eGFR was calculated using the CKD-EP I equation. As with all creatinine based estimates of kidney function, eGFR values calculated with the CKD-EPI equation are not accurate in patients wi th acute kidney failure, extremes of body mass or the acutely ill. http://[employer]/[facility]UCKnkf Specimen Anatomical Collection Method Collection Time Receive d Time (Source) Location / / Volume Laterality Blood specimen 05/22/2019 2:09 PM 019 2:13 (specimen) EDT PM EDT Resulting Agency Comment Spec In Lab Jia Bledsoe MD CHEMISTRY ORDERABLES Performing Organization Address City/State/[place] [address] Hepatitis C genotype (05/22/2019 2:09 PM EDT) Component Value Ref Test Analysis Performed At [facility] Range Method Time Signature HCV Genotype Indication for study CHRISTY Hepatitis C Infection [facility] 3 LABORATORY Interpretation: The genotyping analysis has identified t he presence of hepatitis C virus (HCV) genotype 3 in the submitted specimen. Response t o some antiviral therapies is genotype dependent. Please refer to current practice guideli rama and pharmaceutical product inserts for specific recommenda tions on treating this particular HCV genotype. Method: The HCV genotyping was carried out using [employer] eSens or?? HCVg Direct Test. Briefly, nucleic acid isolated from plasma is subjected to a multiplexed reverse transcriptase PCR followed by a direct analysis on the electrochemical eSTreater XT-8 detection system for the id entification of HCV genotypes. The HCV genotypes/subtypes detected by this method include 1a, 1b, 2a/c, 2b, 3, 4, 5 and 6. Disclaimer: This test was developed and its performance liam acteristics determined by the Clinical Genomics and Advanc ed Technology (CGAT) Laboratory at [facility]. It has not been cleared or approved [...] Organization Address City/State/[place] [address] Hepatitis C RNA, quantitative, PCR (05/22/2019 2:09 PM EDT) Component Value Ref Test Analysis Performed At [facility] Method Time Signature HCV Viral 1,260,443 IU/mL [facility] LABORATORY HCV Viral Result: [id number] IU/mL [facility] Indication for Study: Hepatitis C Infection [facility] Analysis: The [employer] RealTime HCV assay is an in vitro reverse sales systems engineer LABORATORY polymerase chain reaction (RT-PCR)for the quantitation [...] Organization Address City/State/[place] [address] documented in this encounter Visit Diagnoses Diagnosis Hepatic cirrhosis, unspecified hepatic c irrhosis type, unspecified whether ascites present Hepatitis C antibody positive in blood Hemochromatosis, unspecified hemochromat osis type documented in this encounter Care Teams Motor And Generator Assembler Relationship Specialty Start Date End Date Camron Suarez MD PCP - General Family Medicine 05/19/19 44 [facility] [address] [place] [phone] documented as of this encounter
--- OUTSIDE RECORDS SUMMARY | 2022-07-21 01:19 | XMS_ITS | Encounter Summary ---
:1955 Author Organization [facility] [address] Care Team Providers Name Role Phone Camron Suarez MD Primary Care Provider Reason for Visit Auth/Cert Specialty Diagnoses / Procedures Referred By Contact Refer red To Contact Diagnoses hepatocellular carcinoma Procedures ARTERIOGRAMS Referral ID Status Reason Start Date Expiration Date Visits Requ ested Visits Authorized [id number] 1 1 Encounter Details Date Type Department Care Team Description 07/31/2019 - Hospital Encounter 1 [facility] Zeus Watson MD [facility] [place] [address] 08/03/2019 [facility] Yeison Barbosa III, [place] [address] [facility] [place] [address] [place] [address] [place], [place] [phone] Social History Tobacco Use Types Packs/Day Years [...] Sign Reading Time Taken Comments Blood Pressure 130/85 08/03/2019 11:27 AM EST Pulse 81 08/01/2019 3:07 PM EST Temperature 37.2 ??C (99 ??F) 08/03/2019 11:27 AM EST Respiratory Rate 18 08/03/2019 11:27 AM EST Oxygen Saturation 90% 08/03/2019 11:27 AM EST Inhaled Oxygen Concentration - - Weight 88.9 kg (195 lb 15.8 oz) 08/02/2019 12:08 PM EST Height 179 cm (5' 10.47) 08/02/2019 12:08 PM EST Body Mass Index 27.75 08/02/2019 12:08 PM EST documented in this encounter Discharge Summaries Earl Ledbetter MD - 08/01/2019 10:08 PM EST Discharge Summary Patient Name: Benjamín Henry Patient Age: 64 y.o. Language: Estonian Race: White Ethnicity: Not nor Admit date: [...] please contact your inpatient physician through the [facility] Boat Outboard Engine Mechanic . Issues after hours and on weekends [...] 88.9 kg (195 lb 15.8 oz) (08/02/19 1208) Functional and Cognitive Status: Clear mentation, ambulatory [...] displayed. Last Ca, Mg, Phos Recent Labs 08/02/1945 CALCIUM 8.3* Last 3 Coags No results [...] access ?? Celiac and SMA angiograms ?? Haakon arterial embolization with of left hepatic lobe [...] SILVER MEN 300-600-300 mcg Tab Generic drug: apttvrgh-fha-EO-lycopen-lutein Smoking Status at Discharge: Social History Tobacco [...] 09/04/2019 11:30 AM LAB, THREE L Lab [facility] Arrive at: Insurance Risk Analyst Area 09/04/2019 12:30 PM Mehdi London PA Gastroenterology at [facility] Arrive at: Insurance Risk Analyst Area [phone] Discharge References/Attachments None documented in this encounter [...] and when to seek medical attention. Earl Ledbetter MD - 08/02/2019 3:05 PM EST Hospital [...] wbc, hgb, hct plt Recent Labs 08/02/19 09 WBC 13.4* HGB 10.6* HCT 37.9* Last [...] access ?? Celiac and SMA angiograms ?? Haakon arterial embolization with of left hepatic lobe [...] pain better controlled and WBC downtrending Team Pager(MD Coverage 16/04): #[phone] PCP: Camron Suarez MD [phone] Attestation: IPI Certification I certify that I am a D-H credentialed attending provider with admitting privileges and that the patient meets or has met medical necessity to require an inpatient IPI level of care meeting a minimum of two midnights or is on the CMS inpatient only procedure list (status C) due to: uncontrolled pain requiring titration of medications to achieve optimal effect and to minimize immediate or severe side effects Earl Ledbetter MD 08/02/2019 Yeison Woodward MSW - 08/02/2019 11:03 AM EST Social Work Note: Received page that pt had questions regarding finances. Spoke with pt via phone. Pt inquired about applying for social security disability. He states that he already has early residential through socialsecurity (since Age 62). SW offered to provide information on applying for SSDI as well. However, ptdeclined stating that he didn't want to mess up what I have already. No other needs identified. DIXON Avilez Weekend Senior Controls Engineer Pager#: [phone] Jatin Joaquim Roberto - 08/02/2019 8:27 AM EST INTERVENTIONAL RADIOLOGY Inpatient Progress Note Admitted 07/31/2019 Procedure(s): Haakon Hepatic HCC Embolization - 07/31/19 Post-procedure day: [...] for discharge from an IR perspective. Fabrizio Banks RN - 08/01/2019 3:12 PM EST Report called to Ofelia Joyce. Cynthia Rick MD - 08/01/2019 10:45 AM EST Hospital Medicine Attending Daily Progress Note Admit Date: 07/31/2019 Hospital Day 1 day Active Hospital Problems Diagnosis ??? HCC (hepatocellular carcinoma) Resolved Hospital Problems No resolved problems to display. PM Active Non-Hospital Problems Diagnosis ??? Chronic hepatitis [...] access ?? Celiac and SMA angiograms ?? Haakon arterial embolization with of left hepatic lobe [...] pain better controlled Team Pager( Coverage 16/04): #[phone] PCP: Camron Suarez MD [phone] Attestation: IPI Certification I certify that I am a D-H credentialed attending provider with admitting privileges and that the patient meets or has met medical necessity to require an inpatient IPI level of care meeting a minimum of two midnights or is on the CMS inpatient only procedure list (status C) due to: uncontrolled pain requiring titration of medications to achieve optimal effect and to minimize immediate or severe side effects Cynthia Ash MD 08/01/2019 Jourdan Heaton DO - 08/01/2019 6:51 AM EST INTERVENTIONAL RADIOLOGY Inpatient Progress Note Admitted 07/31/2019 Procedure(s): Haakon Hepatic Embolization Post-procedure day: #1 Time of patient encounter: 0615 24 Hour Events: No acute events. C/o [...] pain without peritonitic signs. Plan: 1) Consider SEALER DRY CELL or IV pain medications for breakthrough pain. 2) Follow-up at GI clinic in 1 month (scheduled) 3) Follow-up chest/abdomen CT in 1 month (ordered) Roger Del Valle RN - 07/31/2019 6:55 PM EST Pt arrived around 17:40. A+O,c/o abdomen pain 03/03, tramadol 50mg given. Pt oriented to unit and placed on [employer] monitor. CTM documented in this encounter H&P [...] varices ID: 64 y.o. Male presents to [facility] for bland liver embolization. History of Present [...] ENDOSCOPY performed by Jamie Avalos MD at [facility] ENDOSCOPY ??? PRO UPPER GI ENDOSCOPY, DIAGNOSTIC N/A 05/22/2019 EGD, UPPER GI ENDOSCOPY performed by Jia Bledsoe MD at [facility] ENDOSCOPY ??? PRO UPPER GI ENDOSCOPY, DIAGNOSTIC N/A 06/24/2019 EGD, UPPER GI ENDOSCOPY performed by Butch Parker MD at [facility] ENDOSCOPY ??? PRO UPPER GI ENDOSCOPY, LIGAT VARIX 04/20/2019 EGD, W BAND LIGATION OF ESOPHAGEAL/GASTRIC VARICES performed by Jamie Avalos MD at [facility] ENDOSCOPY Prior To Admission Medications: Medications [...] mg (65 mg iron) Tablet 07/30/2019 ??? fpytosnz-rba-QC-lycopen-lutein (CENTRUM SILVER MEN) 300-600-300 mcg Tablet Take [...] file Gets together: Not on file Attends sabianist service: Not on file Active member of [...] access ?? Celiac and SMA angiograms ?? Haakon arterial embolization with of left hepatic lobe [...] Code Family - PCP Camron Suarez MD [phone] Team (16/04 Coverage) 2300 on 07/31 only, then per care team [...] and ADLs]: Independent Surveillance [continuous indirect monitoring]: Masimo, call mead within reach, purposeful rounding Patient-specific fall prevention [...] OUTCOME EVALUATION NOTE: OUTCOME SUMMARY: A&Ox4. VSS. Masimo on. Call mead in reach. - c/o [...] Outcome: Ongoing (Interventions Implemented as Appropriate) 08/02/19 08 Safety Interventions Isolation Precautions standard precautions maintained Infection Prevention rest/sleep promoted;single patient room provided Coping Strategies Supportive Measures active listening utilized Plan of Care - Mile Anderson RN - 08/02/2019 6:05 AM EST Problem: Patient Care Overview Goal: Plan of Care Review Outcome: Ongoing (Interventions Implemented as Appropriate) 08/01/19 0539 08/01/19 1945 Coping/Psychosocial Plan Of Care Reviewed With -- [...] Control Outcome: Ongoing (Interventions Implemented as Appropriate) 08/01/1985008/01/191944 Safety Interventions Isolation Precautions standard precautions maintained -- Infection Prevention -- rest/sleep promoted Coping Strategies Supportive Measures -- active listening utilized;self-care encouraged;self- reflection promoted;self-responsibility promoted;verbalization of feelings encouraged Goal: Discharge Needs Assessment Outcome: Ongoing (Interventions Implemented as Appropriate) 08/01/1937 Discharge Needs Assessment Concerns To Be Addressed [...] Outcome: Ongoing (Interventions Implemented as Appropriate) 08/02/19 05 Pain, Acute Related Risk Factors (Acute Pain) persistent pain Signs and Symptoms (Acute Pain) facial mask of pain/grimace Goal: Acceptable Pain Control/Comfort Level Patient will demonstrate the desired outcomes by discharge/transition of care. Outcome: Ongoing (Interventions Implemented as Appropriate) 08/02/19551 Pain, Acute (Adult) Acceptable Pain Control/Comfort Level [...] Green Tube HOLD (08/03/2019 6:30 AM EST) P athologist Signature Green Hold Sample in [facility]. [facility] Specimen Anatomical Collection Method Collection Time Receive d Time (Source) Location / / Volume Laterality Blood specimen Venous Draw / 08/03/2019 6:30 AM 2018 6:38 (specimen) Unknown EST AM EST Earl Ledbetter MD CHEMISTRY ORDERABLES Performing Organization Address City/State/[place] [address] (ABNORMAL) Differential, Automated (08/03/2019 6:30 AM EST) Patholo gist Method Time Signature Neutrophils % 82.8 % [facility] Neutr Abs (ANC) 10.82 (H) 1.70 - [facility] 6.10 [facility] x10(3)/[facility] LABORATORY Lymphocytes % 5.6 % [facility] Lymphocytes Abs 0.7 (L) 0.9 - 3.2 [facility] x10(3)/[facility] LABORATORY Monocytes % 10.6 % [facility] Monocyte Abs 1.4 (H) 0.3 - 0.9 [facility] x10(3)/[facility] LABORATORY Eosinophils % 0.1 % [facility] Eosinophils Abs 0.0 0.0 - 0.4 [facility] x10(3)/[facility] LABORATORY Basophils % 0.3 % [facility] Basophils Abs 0.0 0.0 - 0.1 [facility] x10(3)/[facility] LABORATORY Immature Gran % 0.60 % [facility] Comment: Immature granulocytes(IG's)percentage an d absolute count will include metamyelocytes, myelocytes, and promyelo cytes. Blood smears from CBCs yielding IG's will be scanned manually for concyue danmariam. If this scan disagrees with the automated IG or if promyelocytes are not ed, a manual differential will be performed. Haily Gran Abs 0.08 (H) 0.00 - 0.04 x10(3)/[facility] LABORATORY Specimen Anatomical Collection Method Collection Time Receive d Time (Source) Location / / Volume Laterality Blood specimen 08/03/2019 6:30 AM 019 6:37 (specimen) EST AM EST Resulting Agency Comment Spec In Lab Earl Ledbetter MD HEMATOLOGY ORDERABLES Performing Organization Address City/State/[place] [address] (ABNORMAL) Hemogram (08/03/2019 6:30 AM EST) Analysis Performed At Patho logist Time Signature WBC 13.1 (H) 4.0 - 9.5 [facility] x10(3)/[facility] LABORATORY RBC 5.06 4.58 - [facility] 5.54 [facility] x10(6)/[facility] LABORATORY Hemoglobin 9.9 (L) 13.7 - [facility] 16.5 gm/dL [facility] Hematocrit 35.4 (L) 40.5 - [facility] 48.5 % [facility] MCV 70.0 (L) 82.9 - [facility] 93.1 [facility] LABORATORY MCH 19.6 (L) 27.5 - [facility] 32.1 pg [facility] MCHC 28.0 (L) 32.0 - [facility] 35.7 gm/dL [facility] Platelets 114 (L) 145 - 357 [facility] x10(3)/[facility] LABORATORY RDWSD 54.7 (H) 36.0 - [facility] 45.0 [facility] LABORATORY RDWCV 22.4 (H) 11.4 - [facility] 13.8 % [facility] MPV 9.3 7.6 - 12.9 [facility] LABORATORY nRBC % Auto 0.0 % [facility] nRBC Abs Auto 0.000 0.000 - [facility] N[facility]HA 0.000 [facility] x10(3)/[facility] LABORATORY Specimen Anatomical Collection Method Collection Time Receive d Time (Source) Location / / Volume Laterality Blood specimen 08/03/2019 6:30 AM 019 6:37 (specimen) EST AM EST Resulting Agency Comment Spec In Lab Earl Ledbetter MD HEMATOLOGY ORDERABLES Performing Organization Address City/State/[place] [address] XR Chest PA & [...] For questions regarding this report, please contact doctors' hospital number below. ? Narrative 08/02/2019 4:19 PM [...] (ABNORMAL) Differential, Automated (08/02/2019 9:45 AM EST) [facility] Method Time Signature Neutrophils % 87.0 % [facility] Neutr Abs (ANC) 11.63 (H) 1.70 - [facility] 6.10 [facility] x10(3)/[facility] LABORATORY Lymphocytes % 5.1 % [facility] Lymphocytes Abs 0.7 (L) 0.9 - 3.2 [facility] x10(3)/[facility] LABORATORY Monocytes % 7.2 % [facility] Monocyte Abs 1.0 (H) 0.3 - 0.9 [facility] x10(3)/[facility] LABORATORY Eosinophils % 0.0 % [facility] Eosinophils Abs 0.0 0.0 - 0.4 [facility] x10(3)/[facility] LABORATORY Basophils % 0.3 % [facility] Basophils Abs 0.0 0.0 - 0.1 [facility] x10(3)/[facility] LABORATORY Immature Gran % 0.40 % [facility] Comment: Immature granulocytes(IG's)percentage an d absolute count will include metamyelocytes, myelocytes, and promyelo cytes. Blood smears from CBCs yielding IG's will be scanned manually for concor dance. If this scan disagrees with the automated IG or if promyelocytes are not ed, a manual differential will be performed. Haily Gran Abs 0.05 (H) 0.00 - 0.04 x10(3)/[facility] LABORATORY Specimen Anatomical Collection Method Collection Time Receive d Time (Source) Location / / Volume Laterality Blood specimen 08/02/2019 9:45 AM 019 (specimen) EST 10:28 AM EST Resulting Agency Comment Spec In Lab Earl Ledbetter MD HEMATOLOGY ORDERABLES Performing Organization Address City/State/Z[place] [address] (ABNORMAL) Hemogram (08/02/2019 9:45 AM EST) Analysis Performed At Patho logist Time Signature WBC 13.4 (H) 4.0 - 9.5 [facility] x10(3)/[facility] LABORATORY RBC 5.38 4.58 - [facility] 5.54 [facility] x10(6)/[facility] LABORATORY Hemoglobin 10.6 (L) 13.7 - [facility] 16.5 gm/dL [facility] Hematocrit 37.9 (L) 40.5 - [facility] 48.5 % [facility] MCV 70.4 (L) 82.9 - [facility] 93.1 [facility] LABORATORY MCH 19.7 (L) 27.5 - [facility] 32.1 pg [facility] MCHC 28.0 (L) 32.0 - [facility] 35.7 gm/dL [facility] Platelets 116 (L) 145 - 357 [facility] x10(3)/[facility] LABORATORY RDWSD 55.2 (H) 36.0 - [facility] 45.0 [facility] LABORATORY RDWCV 23.1 (H) 11.4 - [facility] 13.8 % [facility] MPV 9.5 7.6 - 12.9 [facility] LABORATORY nRBC % Auto 0.0 % [facility] nRBC Abs Auto 0.000 0.000 - [facility] 0.000 [facility] x10(3)/[facility] LABORATORY Specimen Anatomical Collection Method Collection Time Receive d Time (Source) Location / / Volume Laterality Blood specimen 08/02/2019 9:45 AM 019 (specimen) EST 10:28 AM EST Resulting Agency Comment Spec In Lab Earl Ledbetter MD HEMATOLOGY ORDERABLES Performing Organization Address City/State/Z[place] [address] (ABNORMAL) Comprehensive metabolic panel (non-fasting) (08/02/2019 9:45 AM EST) athologist Signature Glucose Lvl 149 65 - 199 [facility] mg/dL [facility] Comment: Diabetes: >=200 mg/dL plus symp toms BUN 11 10 - 20 mg/dL [facility] Creatinine 1.13 0.80 - 1.50 mg/dL [facility] LABOR[facility]ORY Sodium 131 (L) 135 - 145 mmol/L [facility] Potassium 3.6 3.5 - 5.0 mmol/L [facility] Comment: Please note: ??Patients with WBC >100,00 0 may have falsely elevated Potassium levels. ??For accurate Potassium quantif ication in these patients send serum separator tube (gold top) for subsequent determinations. ??Contact the Clinical Chemistry Laboratory if there are any qu estions. Chloride 95 (L) 98 - 107 mmol/L [facility] CO2 24 22 - 31 mmol/L [facility] Anion Gap 12 5 - 15 mmol/L [facility] Calcium 8.3 (L) 8.5 - 10.5 mg/dL [facility] Total Protein 8.2 (H) 6.1 - 8.0 gm/dL [facility] LABORATORY Albumin 3.2 3.2 - 5.2 gm/dL [facility] AST 151 (H) 0 - 39 unit/L [facility] ALT 77 (H) 0 - 55 unit/L [facility] Alk Phos 98 40 - 130 unit/L [facility] Total Bilirubin 1.4 (H) 0.2 - 1.3 mg/dL [facility] Estimated GFR 68 >=60 mL/min/1.73 m?? [facility] Comment: The eGFR was calculated using the CKD-EP I equation. As with all creatinine based estimates of kidney function, eGFR values calculated with the CKD-EPI equation are not accurate in patients wi th acute kidney failure, extremes of body mass or the acutely ill. [email or web address] eGFR 79 >=60 mL/min/1.73 m?? [facility] Comment: The eGFR was calculated using the CKD-EP I equation. As with all creatinine based estimates of kidney function, eGFR values calculated with the CKD-EPI equation are not accurate in patients wi th acute kidney failure, extremes of body mass or the acutely ill. [email or web address] Specimen Anatomical Collection Method Collection Time Receive d Time (Source) Location / / Volume Laterality Blood specimen 08/02/2019 9:45 AM 019 (specimen) EST 10:28 AM EST Resulting Agency Comment Spec In Lab Earl Ledbetter MD CHEMISTRY ORDERABLES Performing Organization Address City/State/ZIP Code Phon e Number [address] Blood culture (08/02/2019 12:41 AM EST) Patholo gist Method Time Signature Blood Culture No growth CHRISTY NUHA at 5 days. [facility] Specimen Anatomical Collection Method Collection Time Receive d Time (Source) Location / / Volume Laterality Blood specimen STRUCTURE OF LEFT 08/02/2019 12:41 11/05/2019 2:41 (specimen) HAND / Unknown AM EST AM EST Resulting Agency Comment Spec In Lab Ligia Christine APRN MICROBIOLOGY - BLOOD ORDERAB LES Performing Organization Address City/[facility]/ZIP Code Phon e Number [address] Blood culture (08/02/2019 12:41 AM EST) [facility] Method Time Signature Blood Culture No growth CHRISTY BREEN at [facility] days. [facility] Specimen Anatomical Collection Method Collection Time Receive d Time (Source) Location / / Volume Laterality Blood specimen STRUCTURE OF RIGHT 08/02/2019 12:41 05/2019 2:40 (specimen) UPPER LIMB / AM EST AM EST Unknown Resulting Agency Comment Spec In Lab Ligai Christine APRN MICROBIOLOGY - BLOOD ORDERAB LES Performing Organization Address City/State/ZIP Code Phon e Number [place] [phone] documented in this encounter Visit Diagnoses Diagnosis HCC (hepatocellular carcinoma) Malignant neoplasm of liver, primary documented in this encounter Admitting Diagnoses Diagnosis HCC [...] Vy 07/31/19 at 2100, Until Discontinued, Routine Given 08/01/2019 8:25 PM EST 40 mg folic acid (FOLVITE) tablet 1,000 mcg Given 08/03/2019 8:10 AM EST 1,000 mcg 1,000 mcg (1 mg), Oral, DAILY, First dose on Vy 07/31/19 at 1800, Until Discontinued, Routine Given 08/02/2019 8:21 AM EST 1,000 mcg Given 08/01/2019 8:27 AM EST 1,000 mcg HYDROmorphone (DILAUDID) injection 0.4 m g Given 08/01/2019 9:05 AM EST 0.4 mg 0.4 mg, Intravenous, EVERY 4 HOURS PRN, Starting on Sun08/01/19 at 0656, Until 08/02/19 at 1015, Pain, moderate pain (4-6), May give an additional 0.2 mg in 30 minutes once if pain not relieved., Routine HYDROmorphone (DILAUDID) tablet 2-4 mg Given 08/02/2019 12:38 AM EST 2 mg 2-4 mg, Oral, EVERY 4 HOURS PRN, Starting on Sun08/01/19 at 1155, Until 08/02/19 at 1015, Pain, 2mg 1-8, 4mg 9-10. Try 2mg first. Thanks!, Routine Given 08/01/2019 4:24 PM EST 4 mg Given 08/01/2019 12:21 PM EST 2 mg ondansetron (ZOFRAN) injection 4 mg Given 08/01/2019 12:48 AM EST 4 mg 4 mg, Intravenous, ONCE, 1 dose, On Sun08/01/19 at 0100, Pt currently vomiting. ondansetron (ZOFRAN) injection 4 mg Given 08/01/2019 [...] mg polyethylene glycol (MIRALAX) packet 17 g Given 08/02/2019 12:23 PM EST 17 g 17 g, Oral, EVERY 2 HOURS SCHEDULED, 2 doses, First dose on 08/02/19 at 1030, Last dose on 08/02/19 at 1200, Give second dose if first was not effective, Routine Given 08/02/2019 10:49 AM EST 17 g polyethylene glycol (MIRALAX) packet 17 g 17 g, Oral, DAILY PRN, Starting on Sat 1 10/02/18 at 1513, Until 11/10/19 at 1836, Constipation, Give second dose if first was not effect oswaldo, Routine potassium chloride (K-DUR/KLOR-CON) extended Given 04/2019 8:28 AM EST 20 mEq release tablet 20 mEq 20 mEq, Oral, ONCE, 1 dose, On Sun08/01/19 at 0845, 20 mEq tablet may be dissolved in water for administration, Routine sodium chloride 0.9 % (flush) flush 5 mL Given 08/03/2019 8:12 AM EST 5 mLs 5 mL, Intravenous, 2 TIMES DAILY, First dose on Vy 07/31/19 at 2100, Until Discontinued, Routine Given 08/02/2019 [...] Pain, Routine traMADol (ULTRAM) tablet 50-100 mg Given 08/01/2019 6:20 AM EST 100 mg 50-100 mg, Oral, EVERY 6 HOURS PRN, Starting on Vy 07/31/19 at 1637, Until Sun08/01/19 at 1156, Pain, Give 50 mg for mild to moderate pain (1-6). Give 100 mg for severe pain (7-10) If pain not relived after 60 minutes by a dose of 50 mg then may repeat 50 mg ONCE. Maximum of 400 mg/day., Routine Given 08/01/2019 12:18 AM EST 100 mg Given 07/31/2019 6:26 PM EST 50 mg triamterene-hydrochlorothiazide (DYAZIDE) Given 08/03/2019 8:10 AM 2 [...] Oral, 3 TIMES DAILY, First dose on Vy 07/31/19 at 2100, Until Discontinued, Routine ondansetron (ZOFRAN) injection 4 mg (COMPLETED) 47 ( Given - Provider: Mitch Aguilar, CLAU) 4 mg, Intravenous, ONCE, 1 dose, Sun08/01/19 at 0100, Pt current ly vomiting. pantoprazole (PROTONIX) tablet 40 mg 08 (Given - Pro vider: Fabrizio Banks RN) 0821 (Given - Provider: Mariza Edgar, CLAU) 0810 (Gi gabby - Provider: Mariza Edgar, CLAU) 40 mg, Oral, DAILY, First dose on Vy at 1800, Until Discontinued, DO NOT CRUSH OR OPEN, Routine polyethylene glycol (MIRALAX) packet 17 g (COMPLETED) 1049 (Given - Provider: Mariza Edgar, RN)1223 (Given - Provider: Mariza Edgar, CLAU) 17 g, Oral, EVERY 2 HOURS SCHEDULED, 2 d oses, First dose on 08/02/19 at 1030, Last dose on 08/02/19 at 1200, Give second dose if first [...] Fabrizio Banks RN)2027 (Given - Provider: Mile Anderson, CLAU) 08 (Given - Provider: Mariza Edgar RN)2037 (Given - Provider: Stacy Andujar RN) 08 (Given - Provider: Mariza Edgar, CLAU) 5 mL, Intravenous, 2 TIMES DAILY, First dose on Vy 07/31/19 at 2100, Until Discontinued, Routine thiamine (Vitamin B-1) tablet 100 mg 08 (Given - Pro vider: Fabrizio Banks RN) 0821 (Given - Provider: Mariza Edgar, CLAU) 0810 (Gi gabby - Provider: Mariza Edgar, CLAU) 100 mg, Oral, DAILY, First dose on Vy 1 09/30/18 at 1900, Until Discontinued, Routine triamterene-hydrochlorothiazide (DYAZIDE) 37.5-25 mg p er capsule 2 capsule 0620 (Given - Provider: Mitch Aguilar RN) 0632 (Given - Provider: Mile Anderson RN) 0810 (Given - Provider: Mariza Edgar RN) 2 capsule, Oral, EVERY MORNING, First do se on Sun08/01/19 at 0700, Until Discontinued, Routine PRN Medication Order 08/01/2019 08/02/2019 08/03/2019 acetaminophen (TYLENOL) tablet 650 mg 02 03 (Not Given - Provider: Mile Anderson RN [...] mg, Intravenous, EVERY 4 HOURS PRN, Starting Sun08/01/19 at 0656, Until 08/02/19 at 1015, Pain, moderate pain (4-6), May give an additional 0.2 mg in 30 minutes once if pain not relieved., Routine HYDROmorphone (DILAUDID) tablet 2-4 mg (CANCELED) 1221 (Given - Provider: Fabrizio Banks RN)1624 (Given - Provider: Kris Pereyra RN) 0038 (Given - Provider: Mile Anderson [...] 4 mg 0635 (Given - Provider: Mitch Aguilar, CLAU) 4 mg, Intravenous, EVERY 8 HOURS PRN, St arting Sun08/01/19 at 0629, Until 08/03/19 at 1836, [...] mg (CANCELED) 0018 (Gi gabby - Provider: Mitch Aguilar, CLAU)0620 (Given - Provider: Mitch Aguilar RN) 50-100 mg, Oral, EVERY 6 HOURS PRN, Star ting Vy 07/31/19 at 1637, Until 08/01/19 at 1156, Pain, Give 50 mg for mild to moderate pain (1-6). Give 100 mg for severe pain (7-10) If pain not relived afte r 60 minutes by a dose of 50 mg then may repeat 50 mg ONCE. Maximum of 400 mg/day., Routine documented in this encounter Care Teams Cashier And Waiter/Waitress Relationship Specialty Start Date End Date Camron Suarez MD PCP - General Family Medicine 05/19/[address] [place] [address] [phone] documented as of this encounter
--- OUTSIDE RECORDS SUMMARY | 2022-07-21 01:20 | XMS_ITS | Encounter Summary ---
:1955 Author Organization [facility] [address] Care Team Providers Name Role Phone Camron Suarez MD Primary Care Provider Encounter Details Date Type Department Care Team Description 05/22/2019 Hospital Encounter G[place]ology [place] [facility] [place]ia Bledsoe MD [facility] [place] [address] [facility] [phone] GASTROENTEROLOGY [place], [place] [address] Social History Tobacco Use Types [...] Sign Reading Time Taken Comments Blood Pressure 122/88 05/22/2019 1:15 PM EDT Pulse 71 05/22/2019 11:59 AM EDT Temperature 36.6 ??C (97.9 ??F) 05/22/2019 11:59 AM EDT Respiratory Rate 18 05/22/2019 1:15 PM EDT Oxygen Saturation 100% 05/22/2019 1:15 PM EDT Inhaled Oxygen Concentration - - Weight - - Height - - Body Mass Index - - documented in this encounter Discharge Instructions AttachmentsThe following attachments cannot be sent through Care Everywhere.EGD (Upper Endoscopy): Post-op (Upper Sorbian)documented in this encounter Medications at Time of [...] Component Value Ref Test Analysis Performed At [facility] Range Method Time Signature UPPER GI [facility] ENDOSCOPY Endoscopy Procedure Date: 05/22/2019 12:10 PM ? Patient Name: Benjamín Henry ? Date of : 1955 ? Age: 64 ? Order #: [id number] ? Instrument Name: [id number] ? Procedure: ? Upper GI endoscopy Indications: ? 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 Jia Bledsoe MD, Radu Concepcion ? Roldan Fox Skein Washer Referring : ?Camron Suarez MD Medicines: ? [...] reactions. The ? Endoscope was introduced [facility] ? mouth, and [facility] ? of duod[facility]. The patient tole rated ? the procedure well. The upper GI ? endoscopy was accomplished wi [facility] ? difficulty. The patient david ated the [...] protocol completed. ? Hep C antibody positive shoud be ? followed up by checking hep [...] ? visit for the same day to [facility] [place] up ? on the above recommendations and [...] on filedocumented in this encounter Care Teams Firer Bisque Kiln Relationship Specialty Start Date End Date Camron Suarez MD PCP - General Family Medicine 05/19/[address] [place] [address] [address] [place] [id number] documented as of this encounter
--- OUTSIDE RECORDS SUMMARY | 2022-07-21 01:20 | XMS_ITS | Encounter Summary ---
:1955 Author Organization [facility] [place] [address] Care Team Providers Name Role Phone None Primary Care Provider Unavailable Reason for Referral Consultation (Routine) - Closed Specialty Diagnoses / Procedures Referred By Contact Refer red To Contact Primary Care Diagnoses UGIB (upper gastrointestinal bleed) Acute blood loss anemia Alcoholic cirrhosis of liver with ascites Bleeding esophageal varices, unspecified esophageal varices type Rober Beltran MD [facility] Internal Medicine [facility] D R [address] GENERAL INTERNAL [place] [phone] [place] [address] Referral ID Status Reason Start Date Expiration Date Visits V isits Requested Authorized [id number] Closed Consult, 04/22/2019 04/21/2020 1 1 Test & Treat Reason for Visit Auth/Cert Specialty Diagnoses / Procedures Referred By Contact Refer red To Contact Diagnoses UGIB (upper gastrointestinal bleed) GI BLEED Procedures EMERGENCY IPI Referral ID Status Reason Start Date Expiration Date Visits Requ ested Visits Authorized [id number] 1 1 Encounter Details Date Type Department Care Team Description 04/20/2019 - Hospital Medical Intensive Cm Umaña MD [address] [place] [id number] UGIB (upper gastrointestinal bleed); 04/22/2019 Encounter Care Unit - Bam Bettencourt MD [facility] [place] [address] Acute blood loss anemia; [place] [address] 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; [facility] Bleeding esophageal varices, unspecified esophageal [place] [id number] Social History Tobacco Use Types Packs/Day Years Used Date Former Smoker Cigarettes, Pipe 0.5 13 Quit: 2000 Smokeless Tobacco: Never Used Tobacco Cessation: Counseling Given: No Alcohol Use Standard Drinks/Week Comments Yes 0 (1 standard drink = 0.6 oz pure half a fith of wiskey daily last alcohol) drink 04-19-19 Alcohol Habits Answer Date Recorded How often [...] fith of wiskey daily last 019 drink 04-19-19 Sex Assigned at Date Recorded Not on file documented as of this encounter Last Filed Vital Signs Vital Sign Reading Time Taken Comments Blood Pressure 102/76 04/22/2019 3:00 PM EDT Pulse 58 04/22/2019 3:00 PM EDT Temperature 36.7 ??C (98.1 ??F) 04/22/2019 2:00 PM EDT Respiratory Rate 22 04/22/2019 3:00 PM EDT Oxygen Saturation 98% 04/22/2019 3:00 PM EDT Inhaled Oxygen Concentration - - Weight 92.1 kg (203 lb 0.7 oz) 04/20/2019 2:33 AM EDT Height 176.5 cm (5' 9.5) 04/20/2019 2:33 AM EDT Body Mass Index 29.55 04/20/2019 2:33 AM EDT documented in this encounter Discharge Summaries Rober Beltran MD - 04/22/2019 9:09 AM EDT General Internal Medicine - Discharge Summary Patient Name: Benjamín Henry Patient Age: 64 y.o. Birthdate: 1955 Admit date: 04/20/2019 Discharge date and time: 04/22/2019 Attending Physician: Ratna Mcclain MD Follow-up Recommendations for Providers: 1. PCP - TBD [Referral Ordered]: - Please follow up with patient regarding his hospitalization for GI bleed due to esophageal varices. The patient will need to establish care with a PCP; a referral to [facility] has been provided. - The patient will need a follow up EGD in 2-3 weeks; he preferred to decline TIPSS given his concern for possible HE. 2. GI/Hepatology - Dr. Jamie Avalos, 05/12/19 at 2 PM: - Please follow up with patient regarding his hospitalization for GI bleed due to esophageal varices. [ ] The patient will need a follow up EGD in 2-3 weeks; pt declined TIPSS given his concern for possible HE. [ ] Please evaluate whether patient will require beta barbara given portal HTN with recent variceal bleed. [ ] Please discuss ETOH abstinence with patient who is still an active drinker. Patient declined BITteam assistance while inpatient (See: Hospital Course). [ ] Please review HCV treatment plan/discussion regarding ongoing ETOH use as this may inform candidacy for HCV treatment; his HCV screen returned with positive results during this hospitalization. Discharge Diagnoses (Hospital Problems) and Secondary Diagnoses (Chronic Problems): Active Hospital Problems Diagnosis ??? UGIB (upper gastrointestinal bleed) ??? Acute blood loss anemia ??? Cirrhosis, alcoholic ??? Esophageal varices Resolved Hospital Problems No resolved problems to display. Procedures/Cardiac Studies: 1. EGD, 04/20/19: Findings: ?Two columns of non-bleeding large (>??5 mm) varices ?were found in the distal [...] entire examined stomach. ?The examined duodenum was normal History of Presentation: Patient initially presented to [facility] for melena and hematemesis where he was found to have a hemoglobin of 7.3. He would be given a single unit of pRBC, IV PPI, 2L NS, and started on octreotide gtt prior to transfer for EGD. Upon arrival to [facility] early this morning, patient would receive an additional 3units of pRBC for Hg of 6.7. He was notably afebrile, with HR 93 and BP 108/71; sating 100% on RA. He would subsequently be taken to the endoscopy suite where an upper EGD demonstrated two columns of non-bleeding large (> 5 mm) varices without stigmata of recent bleeding. He would subsequently have3 bands placed that led to successful variceal deflation. A band would also be placed over a type 1 g astroesophageal varices resulting in successful deflation. ?? Currently, patient states that he is feeling well and that pain/coughing after the procedure has resolved. He states that he began to experience increasing stool output yesterday, noting ~8 stools thatbecame progressively dark and loose throughout the day. Concurrently, he also had 3 episodes of darkhematemesis and growing progressively dyspneic. ?? Notes a similar episode of hematemesis and dark stools last year that led him to present to OSH but was not hospitalized. He states that he stopped drinking after that event for ~7 weeks without symptoms of withdrawal. Reports last drink was the evening of 04/18/19. Denies any history of withdrawal symptoms in the past or currently. ?? Lastly patient states that he has a chronic productive cough that is typically worse in the AM. Occasionally, he will note scant blood. 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 ? Review of Systems (positives in bold) General: chills, fatigue, fever or night sweats Eye: blurry vision, double vision, loss of vision or photophobia HENT: headaches, sore throat or vertigo Heme/Lymph: Bleeding/bruising, blood clots, jaundice, pallor or swollen lymph nodes Resp: cough, hemoptysis, orthopnea, shortness of breath or wheezing Cardio: chest pain, dyspnea on exertion, edema, loss of consciousness, palpitations, paroxysmal nocturnal dyspnea or shortness of breath Gastro: abdominal pain, blood in stools, constipation, diarrhea, heartburn, hematemesis, melena or nausea/vomiting : dysuria, hematuria or urinary frequency/urgency MSK: joint pain, joint stiffness, joint swelling, muscle pain or muscular weakness Neuro:dizziness, gait disturbance, impaired coordination/balance, memory loss, numbness/tingling, seizures, speech problems, tremors or visual changes Derm: lumps or rash Hospital Course: Mr. Benjamín Henry was admitted to the internal medicine service with the above presentation. During the course of his hospital admission his medical issues were diagnosed and treated as follows: ?? # Upper Intestinal Bleed 2/2 Esophageal Varices # Hx Alcohol Related & HCV Cirrhosis # Acute Blood Lose Anemia 2/2 UGIB Mr. Benjamín Henry is a 64 y.o.??male??with a PMH significant for alcoholic cirrhosis (actively drinking), esophageal varices, HTN who was admitted to the MICU from [facility] ED on 04/20??for melena and hematemesis 2/2 variceal bleed, s/p variceal banding. The patient's EGD identified large esophageal varices,for which four sites were banded. The patient was additionally treated with a 72- hour course of Octeotride gtt, IV Protonix and intent for total 5-day course of SBP prophylaxis; while inpatient, he wasgiven 2 g IV Ceftriaxone. Additionally, the patient was counseled regarding his high risk of a variceal re-bleed, and as such, was counseled regarding the significant possible benefit from an early TIPSS. Following shared decision making discussion, the patient conceded that he would like to decline aTIPPS, given his concern for possible hepatic encephalopathy as a consequence of this preocedure. Heagreed to undergo a follow up EGD in 2-3 weeks. The patient was discharged on PO PPI and 3 additional days of Ciprofloxacin. The patient's HCV screen returned with positive results, suggesting cirrhosis likely synergistically due to HCV infection and ETOH use. The patient declined BIT team assistance to facilitate ETOH abstinence. Given the improvement in the patient's hemodynamics and stable Hgb/HCTfollowing variceal banding, he was discharged with intent for close GI follow-up. ?? # Hx Chronic Alcohol Abuse # Hx of Severe ETOH Dependence The patient reported ongoing alcohol dependence, for which he was initially maintained on the CIWA Protocol with an Ativan Assessment Scale. He exhibited so signs of withdrawal. Important Studies and Lab Data: Recent Labs 04/22/1942904/21/1932704/20/19 2054 04/20/19 1430 04/20/19 1034 WBC 6.6 8.2 7.6 5.9 8.0 HGB 7.7* 8.1* 8.3* 8.5* 8.7* PLATELET 97* 94* 98* 87* 85* Recent Labs 04/22/19 04304/21/19 0328 04/20/19 0240 NA 138 137 139 K 4.1 4.0 4.5 CL 110* 108* 108* CO2 23 23 21* BUN 15 15 22* CREATININE 0.87 0.71* 0.76* GLUCOSE 96 96 110 Recent Labs 04/22/1942904/21/19 0328 04/20/19 0240 CALCIUM 7.0* 7.0* 7.2* MAGNESIUM 0.79 0.88 0.68* PHOS 2.1* 1.9* 2.8 No results for input(s): CK, TROPONINT in the last 168 hours. Recent Labs 04/22/19 0430 04/21/19 0328 04/20/19 0240 AST 67* 52* 51* ALT 29 27 26 ALKPHOS 56 59 74 BILITOT 1.2 2.1* 1.4* BILIDIR 0.7* 1.2* 0.7* Recent Labs 04/21/19 0328 04/20/19 2054 04/20/19 1430 INR 1.6 1.6 1.6 No results for input(s): HA1C in the last 7068 hours. Studies: N/A Pending Studies and Lab Data: None Discharge Conditions/Prognosis: Stable Discharge to: Home Discharge Medications: Your Medications New Medications Dose Details ciprofloxacin 250 mg Tab Commonly known as: CIPRO Take 2 tablets by mouth daily for 3 days. 500 mg Quantity: 6 tablet Refills: 0 folic acid 1 mg Tab Commonly known as: FOLVITE Take 1 tablet by mouth daily. 1 mg Quantity: 90 tablet Refills: 3 pantoprazole 40 mg Tbec Commonly known as: PROTONIX Take 1 tablet by mouth daily. 40 mg Quantity: 90 tablet Refills: 3 thiamine Commonly known as: Vitamin B-1 Take 1 tablet by mouth daily. 100 mg Quantity: 30 tablet Refills: 3 Updated Allergies/ADRs: Allergies Allergen Reactions ??? Aspirin Other (See Comments) It makes me bleed. Future Appointments and Orders Future Appointments and Orders Future Appointments Provider Department Dept Phone 05/12/2019 1:00 PM LAB, [facility] L [facility] Arrive at: [facility]rap [facility]ar Operator Area 05/12/2019 2:00 PM Jamie Avalos MD G[facility]ology at [place] Arrive at: [facility] Area Future Orders Complete By Expires Referral to General Internal Medicine [REF40 Custom] As directed Process Instructions: If no progress note charted, please enter Clinical details in comments. Scheduling Instructions: Questions: My question or request is: Establish Primary Care General Instructions None For questions regarding this document or issues relating to this hospitalization on the Medical Service, please contact your inpatient physician through the [facility] [employer] Fixture Repairer . Issues after hours and on weekends will be handled by the Doubler Operator staff on-call. documented in this encounter Discharge Instructions Patient InstructionsSoRober olivia MD - 04/22/2019 9:08 AM EDT Instruction after leaving the hospital Why you were hospitalized: you were hospitalized for gastrointestinal bleed. Call your doctor or seek medical attention if you develop the following: Call your doctor or seek medical attention if you experience any alarming symptoms. This may include, but is not limited to, fever, chest pain, severe shortness of breath, nausea with vomiting, persistent decrease in your urinaryoutput, severe pain, or any other concerning symptoms. Activity level: As tolerated. Diet: No new restrictions. Driving: Please do not drive if you feel lightheaded, dizzy, faint, or taking any opioids/narcotics (i.e oxycodone). It is advisable that you do not drive till you follow-up with your primary care physician. Shower/Bath: No new restrictions. Wound Care: N/A Home Oxygen therapy: N/A Patient Instructions: Please make sure to continue your antacid medication (Protonix) once/daily. Please complete your antibiotics/Ciprofloxacin until April 25, 2019. Follow-Up Appointments [facility] will call you to set you up with a Primary Care Provider/general doctor. Future Appointments Date Time Provider Department Center 05/12/2019 1:00 PM LAB, [facility] L Lab [facility] 05/12/2019 2:00 PM Jamie Avalos MD [place] [facility] Date and Time Provider and Specialty Location Need to be scheduled None , PCP None None Your Inpatient Doctor(s) at [facility]: Ratna Mcclain MD - Attending Physician Rober Jimenez MD - Resident Physician Mehdi Pearson MD - Licensed Appraiser Physician Liana Betancourt - Medical Student Your Primary Care Provider: None None None For questions regarding this document or issues relating to this hospitalization on the Medical Service, please contact your inpatient physician through the [facility] J[employer] And Fixture Repairer . Issues after hours and on weekends will be handled by the Hospitalist staff on-call. AttachmentsThe following attachments cannot be sent through Care Everywhere. Esophageal Varices ([place]enezuelan)GI Bleed (Venezuelan)Liver Disease Diet (Venezuelan)Upper GI Bleed (Venezuelan)documented in this encounter Medications at Time of Discharge Medication Sig Dispensed Refills Start Date End Date ciprofloxacin (CIPRO) 250 Take 2 tablets by 6 tablet 0 04/25/2019 mg Tablet mouth daily for 3 days. folic acid (FOLVITE) 1 mg Take 1 tablet by 90 tablet 3 03/2607/17/2019 Tablet mouth daily. thiamine (THIAMINE) Take 1 tablet by 30 tablet 3 04/22/2019 10/17/2020 mouth daily. pantoprazole (PROTONIX) 40 Take 1 tablet by 90 tablet 3 11/07/2019 mg Tablet, Delayed Release mouth daily. (E.C.) documented as of this encounter Progress Notes Ratna Mcclain MD - 04/22/2019 5:18 PM EDT Hospital Medicine - Attending Day of Discharge Documentation Discharge diagnosis Active Hospital Problems Diagnosis ??? UGIB (upper gastrointestinal bleed) ??? Acute blood loss anemia ??? Cirrhosis, alcoholic ??? Esophageal varices Resolved Hospital Problems No resolved problems to display. Secondary Issues There are no active non-hospital problems to display for this patient. I have personally seen and examined the patient and they are ready for discharge. I spent >30 minutes (Day of Discharge Code 99262) involved in the final examination of the patient, discussion of the hospital stay, instructions for continuing care to all relevant caregivers, and preparation of discharge records, prescriptions and referral forms. Plans ? Discharge to home ? Follow-up scheduled with GI ? Please see the Discharge Summary for complete details of any medication changes and additional plans. Aren Galvez MD - 04/22/2019 10:54 AM EDT Interventional Radiology Update After discussing patient's case with the primary team as well as the gastroenterology fellow, Dr. Maier I learned of patient's concerns regarding hepatic encephalopathy as the result of TIPS. I discussed the treatment options with Mr. Henry as well as the associated risk of encephalopathy. I explained that the risk of encephalopathy is approximately 25% and that there are both medical and endovascular options to reduce the effects of encephalopathy. Additionally, I emphasized that TIPS could reduce his risk of variceal rebleeding. Mr. Henry tells me that he feels the risk of encephalopathy is unacceptable as his work as a mojica requires work with power tools. He wishes to proceed with EGD rebanding with GI and does not wish to consider TIPS procedure further. I told Mr. Henry that we remain available for further discussion if he reconsiders. Aren Galvez MD Fellow, Interventional Radiology Pager [phone] Cynthia Nunes RN - 04/22/2019 9:47 AM EDT 0947 GI in to see the patient. They are not planning to do any type of procedure today; therefore, the patient would like to eat. Hospitalist team contact for diet orders--MD to place orders 1048 IR here speaking with the patient about the TIPS procedure. As of right now, the patient is still declining to have the procedure done 1530 AVS reviewed with the patient including new medications et FU appointments. He expressed an understanding et had no further questions at this time. Patient to contact nurse when ride has arrived 1703 patient's brother at bedside to take him home. Last PIV removed by nurse. Dc meds reviewed again--patient again expressed an understanding of the dc instructions et had no further questions at this time. Patient then dc'd home in stable condition Mehdi Pearson MD - 04/22/2019 6:33 AM EDT Inpatient Hospital Medicine Progress Note Active Hospital Problems Diagnosis ??? UGIB (upper gastrointestinal bleed) ??? Acute blood loss anemia ??? Cirrhosis, alcoholic ??? Esophageal varices Resolved Hospital Problems No resolved problems to display. There are no active non-hospital problems to display for this patient. Patient ID: 64 y.o.??male??with a PMH significant for alcoholic cirrhosis (actively drinking), esophageal varices, HTN who was admitted to the MICU from [facility] ED on 04/20 for GI bleed.?? 24 H: - initially considering IR TIPS procedure, but deferred due to concerns for hepatic encephalopathy - NAEO; notable episodes of mild asymptomatic hypotension while sleeping - Continues to not score on CIWA - Hg 8.1 to 7.7 - NPO midnight should patient change his decision Subjective: Mild discomfort/burning when eating soft food.s Inpatient Medications: Scheduled Meds: ??? melatonin 3 mg Oral Nightly ??? cefTRIAXone 1 g Intravenous Q24H ??? thiamine 100 mg Intravenous Daily ??? folic acid 1 mg Intravenous Daily ??? insulin lispro 2-8 Units Subcutaneous Q4H ELENA ??? benzonatate 100 mg Oral TID ??? pantoprazole 40 mg Oral Daily Continuous Infusions: ??? sodium chloride 0.9% ? ? octreotide (SandoSTATIN) (standard ADULT & Pedi greater than 20kg) infusion 50 mcg/hr (04/22/19 0600) PRN Meds:.sodium chloride 0.9%, Glucose 40% oral gel OR dextrose OR glucagon (human recombinant) Vitals: Last value Range last 24 hrs Temperature Temp: 36.8 ??C (98.2 ??F) Temp: [36.6 ??C (97.9 ??F)-37.6 ??C (99.7 ??F)] Heart Rate Heart Rate: (!) 48 Heart Rate: [48-70] Blood Pressure BP: 93/64 BP: (84-108)/(48-82) Respiratory Rate Resp: 16 Resp: [14-23] SpO2 SpO2: 97 % SpO2: [95 %-100 %] Ins/Outs: Intake/Output Summary (Last 24 hours) at 04/22/2019 0633 Last data filed at 04/22/2019 0600 Gross per 24 hour Intake 1033 ml Output 875 ml Net 158 ml Physical Exam Gen: NAD, resting comfortably HEENT: sclera non-icteric, neck supple, no LAD, no carotid bruits CV: RRR, S1S2, no MRG, JVP absent, 2+radial & posterior tibial, femoral and pedal pulses Pulm: good air movement, CTAB, no wheezing, crackles or rhonchi Abd: soft, NT/ND, +BS Ext: no peripheral edema, no clubbing, no cyanosis. Skin: warm and dry, no rash or petechiae Neuro: AOx3. no focal deficits grossly noted. CN II-XII intact Labs: Recent Labs 04/22/1942904/21/1932704/20/192053 WBC 6.6 8.2 7.6 HGB 7.7* 8.1* 8.3* PLATELET 97* 94* 98* Recent Labs 04/22/1942904/21/198 04/20/19 0240 NA 138 137 139 K 4.1 4.0 4.5 CL 110* 108* 108* CO2 23 23 21* BUN 15 15 22* CREATININE 0.87 0.71* 0.76* GLUCOSE 96 96 110 CALCIUM 7.0* 7.0* 7.2* MAGNESIUM 0.79 0.88 0.68* PHOS 2.1* 1.9* 2.8 Recent Labs 04/22/1942904/21/1932704/20/19 0240 PROT 5.5* 5.8* 5.9* ALBUMIN 2.2* 2.5* 2.5* BILITOT 1.2 2.1* 1.4* BILIDIR 0.7* 1.2* 0.7* AST 67* 52* 51* ALT 29 27 26 ALKPHOS 56 59 74 No results for input(s): CK, TROPONINT in the last 168 hours. Diagnostics: EGD Findings: ?Two columns of non-bleeding large (> [...] entire examined stomach. ?The examined duodenum was normal Assessment/Plan: 64 y.o.??male??with a PMH significant for alcoholic cirrhosis (actively drinking), esophageal varices, HTN who was admitted to the MICU from [facility] ED on 04/20 for hematemesis 2/2 variceal bleed who is now s/p upper EGD and banding. Final day of octreotide therapy today. Will discuss again prospect of TIPS procedure while inpatient. #Upper Intestinal Bleed 2/2 Esophageal Varices #Hx Alcohol Related Cirrhosis #Acute Blood Lose Anemia - obtain 2nd read of outside CT - echo pending - RUQUS ordered, perform diagnostic tap if ascites present - IR TIPS ordered - f/u Hep C and Hep B serologies - 2 large bore PIVs, active type and screen - continue octreotide gtt (72 hours total) - continue BID PPI - continue IV ceftriaxone for ppx in a cirrhotic for 5 days ?? - Not interested in pharmacologic or BIT team to assist w abstinence #Hx Chronic Alcohol Abuse - ct CIWA, w/o ativan - thiamine - folic acid ?? # FEN/PPX -Diet: Soft diet -DVT ppx: None -GI ppx: IV Pantoprazole ?? Dispo: Medicine Floor ?? Code Status: Full Code Mehdi Pearson MD PGY1, Internal Medicine Pager [phone] Jia Bledsoe MD - 04/22/2019 6:29 AM EDT GASTROENTEROLOGY & HEPATOLOGY INPATIENT PROGRESS NOTE ID: 64-year-old man with a history of ETOH cirrhosis (still activity drinking), and known esophagealvarices (? 11/2018 never banded), who initially presented to [facility] with several days of melena followed by hematemesis and was transferred to [facility] ICU for further management who is now s/p banding (4 total) of large esophageal varices and GOV1 on 7/28. Interval History: --No acute overnight events --Hemoglobin stable (8.1 --> 7.7) --tolerating po --US of the abdomen with small amount of ascites --HCV ab positive Active Hospital Problem List Patient Active Problem List Diagnosis Code ??? UGIB (upper gastrointestinal bleed) K92.2 ??? Cirrhosis, alcoholic K70.30 ??? Esophageal varices I85.00 ??? Acute blood loss anemia D62 Scheduled Meds: ??? melatonin 3 mg Oral Nightly ??? cefTRIAXone 1 g Intravenous Q24H ??? thiamine 100 mg Intravenous Daily ??? folic acid 1 mg Intravenous Daily ??? insulin lispro 2-8 Units Subcutaneous Q4H ELENA ??? benzonatate 100 mg Oral TID ??? pantoprazole 40 mg Oral Daily Continuous Infusions: ??? sodium chloride 0.9% ? ? octreotide (SandoSTATIN) (standard ADULT & Pedi greater than 20kg) infusion 50 mcg/hr (04/22/19 0600) PRN Meds:.sodium chloride 0.9%, Glucose 40% oral gel OR dextrose OR glucagon (human recombinant) Physical Examination Vitals: 04/22/19 0300 04/22/19 0400 04/22/19 0500 04/22/19 0600 BP: 93/63 94/71 96/69 93/64 BP Location (NBP): Right arm Right arm Patient Position: Lying Lying Pulse: 55 53 (!) 48 (!) 48 Resp: 14 15 16 16 Temp: 36.8 ??C (98.2 ??F) 36.8 ??C (98.2 ??F) TempSrc: Oral Oral SpO2: 96% 95% 97% 97% Weight: Height: PHYSICAL EXAM GENERAL: No acute distress, alert and oriented HEENT: AT/NC, sclerae anicteric, moist mucous membranes ABDOMEN: Soft, normoactive bowel sounds, non-tender, non-distended EXT: Warm, no edema SKIN: No jaundice Pertinent Recent labs CBC Lab Results Component Value Date WBC 6.6 04/22/2019 Hemoglobin 7.7 (L) 04/22/2019 Hematocrit 25.0 (L) 04/22/2019 Platelets 97 (L) 04/22/2019 Lab Results Component Value Date Sodium 138 04/22/2019 Potassium 4.1 04/22/2019 Chloride 110 (H) 04/22/2019 CO2 23 04/22/2019 BUN 15 04/22/2019 Creatinine 0.87 04/22/2019 Glucose Lvl 96 04/22/2019 LFT's Lab Results Component Value Date Alk Phos 56 04/22/2019 AST 67 (H) 04/22/2019 Albumin 2.2 (L) 04/22/2019 Bili, Direct 0.7 (H) 04/22/2019 Total Bilirubin 1.2 04/22/2019 ALT 29 04/22/2019 Total Protein 5.5 (L) 04/22/2019 Pertinent Endoscopic Procedures/Reports: EGD 04/20/19 ??- Non-bleeding large (> 5 mm) ?esophageal varices. Completely ?eradicated. Banded. ?- Type 1 gastroesophageal varix ?(GOV1, esophageal varices which ?extend along the lesser curvature), ?witth stigmata Completely eradicated. ?Banded. ?- Normal examined duodenum. ?- No specimens collected. Pertinent Recent Imaging: CT of the abdomen and pelvis at OSH no read US abdominal limited Limited abdominal ultrasound. Ascites is present. Small amount within the pelvis, LUQ, RUQ, right lower quadrant and left lower quadrant area Echocardiogram 04/21/19 1. The left ventricular chamber size is [...] abnormalities. 5. Other details as noted below. Impression: 64-year-old man with a history of ETOH cirrhosis (still activity drinking), and known esophageal varices (? 11/2018 never banded), who initially presented to [facility] with several days of melena followed byhematemesis and was transferred to [facility] for further management who is now s/p banding (4 total) of large esophageal varices and GOV1 on 04/20. We again discussed with the patient that he is a high risk for rebleeding and would likely benefit from early TIPS. He expressed concerns over the risk of encephalopathy with TIPS. As of now he would like to complete the banding protocol repeat EGD with banding for eradication in 2-3 weeks which is a reasonable option. He has also tested positive for HCV and we will need to follow-up with him in clinic to discuss treatment options. ?? Recommendations - advance diet as tolerated - second read for CT of the abdomen and pelvis - ongoing discussion for TIPS - continue octreotide gtt (72 hours total) - continue BID PPI - continue IV ceftriaxone for ppx in a cirrhotic for 5 days - encourage ETOH cessation - we will continue to follow This case was discussed with attending Dr. Bledsoe. Pineda Maier M.D. Fellow in Gastroenterology and Hepatology Pager #[phone] 04/22/2019 Attending Addendum: I have seen and examined the patient with Dr. Maier and agree with his note as above. We will order further hep C labs in anticipation of future treatment. We all need to reinforce the need for follow up- it seems unlikely that he is going to follow up appropriately. We had a long discussion re TIPS and the potential improvement in survival with early TIPS in his situation. He is very fearful of encephalopathy and has decided to proceed with serial banding. Beta barbara would also be appropriate, but his HR and BP currently are too low for this. Jia Bledsoe MD Mehdi Pearson MD - 04/21/2019 6:49 AM EDT Inpatient Hospital Medicine Progress Note Active Hospital Problems Diagnosis ??? UGIB (upper gastrointestinal bleed) ??? Acute blood loss anemia ??? Cirrhosis, alcoholic ??? Esophageal varices Resolved Hospital Problems No resolved problems to display. There are no active non-hospital problems to display for this patient. Patient ID: 64 y.o.??male??with a PMH significant for alcoholic cirrhosis (actively drinking), esophageal varices, HTN who was admitted to the MICU from [facility] ED on 04/20 for GI bleed.?? 24 H: - single dark BM overnight, hemodynamically unchanged (intermittently soft SBP 90s while sleeping) and Hg unchanged - Hg stable in AM Subjective: Endorsing mild swallowing discomfort while swalloing but feels otherwise well. Denies abdominal discomfort Inpatient Medications: Scheduled Meds: ??? melatonin 3 mg Oral Nightly ??? cefTRIAXone 1 g Intravenous Q24H ??? thiamine 100 mg Intravenous Daily ??? folic acid 1 mg Intravenous Daily ??? insulin lispro 2-8 Units Subcutaneous Q4H ELENA ??? benzonatate 100 mg Oral TID ??? pantoprazole 40 mg Oral Daily Continuous Infusions: ??? sodium chloride 0.9% ? ? octreotide (SandoSTATIN) (standard ADULT & Pedi greater than 20kg) infusion 50 mcg/hr (04/21/19 0612) PRN Meds:.sodium chloride 0.9%, Glucose 40% oral gel OR dextrose OR glucagon (human recombinant) Vitals: Last value Range last 24 hrs Temperature Temp: 36.9 ??C (98.4 ??F) Temp: [36.5 ??C (97.7 ??F)-36.9 ??C (98.4 ??F)] Heart Rate Heart Rate: 57 Heart Rate: [57-80] Blood Pressure BP: 90/55 BP: (90-161)/(49-109) Respiratory Rate Resp: 16 Resp: [10-26] SpO2 SpO2: 99 % SpO2: [98 %-100 %] Ins/Outs: Intake/Output Summary (Last 24 hours) at 04/21/2019 0649 Last data filed at 04/21/2019 0600 Gross per 24 hour Intake 3103.5 ml Output 1150 ml Net 1953.5 ml Physical Exam Gen: NAD, resting comfortably HEENT: sclera non-icteric, neck supple, no LAD, no carotid bruits CV: RRR, S1S2, no MRG, JVP absent, 2+radial & posterior tibial, femoral and pedal pulses Pulm: good air movement, CTAB, no wheezing, crackles or rhonchi Abd: soft, NT/ND, +BS Ext: no peripheral edema, no clubbing, no cyanosis. Skin: warm and dry, no rash or petechiae Neuro: AOx3. no focal deficits grossly noted. CN II-XII intact Labs: Recent Labs 04/21/1932704/20/19205304/20/19 1430 WBC 8.2 7.6 5.9 HGB 8.1* 8.3* 8.5* PLATELET 94* 98* 87* Recent Labs 04/21/1932704/20/19 0240 NA 137 139 K 4.0 4.5 CL 108* 108* CO2 23 21* BUN 15 22* CREATININE 0.71* 0.76* GLUCOSE 96 110 CALCIUM 7.0* 7.2* MAGNESIUM 0.88 0.68* PHOS 1.9* 2.8 Recent Labs 04/21/1932704/20/19 0240 PROT 5.8* 5.9* ALBUMIN 2.5* 2.5* BILITOT 2.1* 1.4* BILIDIR 1.2* 0.7* AST 52* 51* ALT 27 26 ALKPHOS 59 74 No results for input(s): CK, TROPONINT in the last 168 hours. Diagnostics: EGD Findings: ?Two columns of non-bleeding large (> [...] entire examined stomach. ?The examined duodenum was normal Assessment/Plan: 64 y.o.??male??with a PMH significant for alcoholic cirrhosis (actively drinking), esophageal varices, HTN who was admitted to the MICU from [facility] ED on 04/20 for hematemesis 2/2 variceal bleed who is now s/p upper EGD and banding. Patient has remained hemodynamically stable with minimal change in his Hg since his esophageal banding yesterday. Per GI, patient would be a good patient for TIPS procedure. Will proceed with RUQUS andechocardiogram today with anticipation of IR placement later this afternoon. #Upper Intestinal Bleed 2/2 Esophageal Varices #Hx Alcohol Related Cirrhosis #Acute Blood Lose Anemia - obtain 2nd read of outside CT - echo pending - RUQUS ordered, perform diagnostic tap if ascites present - IR TIPS ordered - f/u Hep C and Hep B serologies - 2 large bore PIVs, active type and screen - continue octreotide gtt (72 hours total) - continue BID PPI - continue IV ceftriaxone for ppx in a cirrhotic for 5 days ?? #Hx Chronic Alcohol Abuse - ct CIWA, w/o ativan - thiamine - folic acid ?? # FEN/PPX -Diet: Soft diet -DVT ppx: None -GI ppx: IV Pantoprazole ?? Dispo: Medicine Floor ?? Code Status: Full Code Mehdi Pearson MD PGY1, Internal Medicine Pager [phone] Associated attestation - Ratna Mcclain MD - 04/21/2019 7:36 PM EDT Attending Attestation Please see Dr. Pearson's note for details of the patient history of presentation and data. I have discussed, reviewed and agree with the documented History, Physical findings, Assessment and Plan of care. I have examined the patient myself and personally reviewed all studies. In addition, I certify that I am a [facility] credentialed attending provider with admitting privileges and that the patient meets or has met medical necessity to require an inpatient IPI level of care meeting a minimum of two midnights or is on the [facility] inpatient only procedure list (status C) due to: variceal hemorrhage Hemoglobin remains stable after banding of esophogeal varices. Benjamín is no longer interested in TIPS. Continue NPO at midnight in case he changes his mind and TIPS can be done on 04/22 (although per IRnote it sounds like 04/23 would be the soonest this could be done). If he does not undergo TIPS we will need to confirm with GI if repeat EGD is necessary in the next 2-4 weeks. Continue octreotide for total 72 hours (ie infusion set to end at ~03:00 on 04/23). As he is markedly clinically improved we may discuss safety of early discontinuation of octreotide. Continue PPI. Continue ceftriaxone, anticipate seven day course of antibiotics total of GI bleed antibiotic prophylaxis. RUQ ultrasound, showed ascites, we will attempt bedside paracentesis tomorrow. Monitor on CIWA, not scoring thus far. Consult BIT team, he was not interested in counseling, therapy or pharmacologic interventions to assist with alcohol abstinence, when we discuss this issue this evening. Follow up hepatitis serologies. Jia Bledsoe MD - 04/21/2019 6:42 AM EDT GASTROENTEROLOGY & HEPATOLOGY INPATIENT PROGRESS NOTE ID: 64-year-old man with a history of ETOH cirrhosis (still activity drinking), and known esophagealvarices (? 11/2018 never banded), who initially presented to [facility] with several days of melena followed by hematemesis and was transferred to [facility] for further management who is now s/p banding (4 total) of large esophageal varices and GOV1 on 04/20. Interval History: --No acute overnight events --1 dark red BM reported overnight --Hgb stable (8.5 --> 8.3 --> 8.1) --denies abdominal pain Active Hospital Problem List Patient Active Problem List Diagnosis Code ??? UGIB (upper gastrointestinal bleed) K92.2 ??? Cirrhosis, alcoholic K70.30 ??? Esophageal varices I85.00 ??? Acute blood loss anemia D62 Scheduled Meds: ??? melatonin 3 mg Oral Nightly ??? cefTRIAXone 1 g Intravenous Q24H ??? thiamine 100 mg Intravenous Daily ??? folic acid 1 mg Intravenous Daily ??? insulin lispro 2-8 Units Subcutaneous Q4H ELENA ??? benzonatate 100 mg Oral TID ??? pantoprazole 40 mg Oral Daily Continuous Infusions: ??? sodium chloride 0.9% ? ? octreotide (SandoSTATIN) (standard ADULT & Pedi greater than 20kg) infusion 50 mcg/hr (04/21/19 0612) PRN Meds:.sodium chloride 0.9%, Glucose 40% oral gel OR dextrose OR glucagon (human recombinant) Physical Examination Vitals: 04/21/19 0300 04/21/19 0400 04/21/19 0500 04/21/19 0600 BP: 108/74 94/50 95/63 90/55 BP Location (NBP): Right arm Right arm Patient Position: Lying Lying Pulse: 63 60 58 57 Resp: 17 15 16 16 Temp: 36.9 ??C (98.4 ??F) 36.9 ??C (98.4 ??F) TempSrc: Oral Oral SpO2: 98% 100% 99% 99% Weight: Height: PHYSICAL EXAM GENERAL: No acute distress, alert and oriented HEENT: AT/NC, sclerae anicteric, moist mucous membranes ABDOMEN: Soft, normoactive bowel sounds, non-tender, non-distended EXT: Warm, no edema SKIN: No jaundice Pertinent Recent labs CBC Lab Results Component Value Date WBC 8.2 04/21/2019 Hemoglobin 8.1 (L) 04/21/2019 Hematocrit 26.0 (L) 04/21/2019 Platelets 94 (L) 04/21/2019 Lab Results Component Value Date Sodium 137 04/21/2019 Potassium 4.0 04/21/2019 Chloride 108 (H) 04/21/2019 CO2 23 04/21/2019 BUN 15 04/21/2019 Creatinine 0.71 (L) 04/21/2019 Glucose Lvl 96 04/21/2019 LFT's Lab Results Component Value Date Alk Phos 59 04/21/2019 AST 52 (H) 04/21/2019 Albumin 2.5 (L) 04/21/2019 Bili, Direct 1.2 (H) 04/21/2019 Total Bilirubin 2.1 (H) 04/21/2019 ALT 27 04/21/2019 Total Protein 5.8 (L) 04/21/2019 Pertinent Endoscopic Procedures/Reports: EGD 04/20/19 ??- Non-bleeding large (> 5 mm) ?esophageal varices. Completely ?eradicated. Banded. ?- Type 1 gastroesophageal varix ?(GOV1, esophageal varices which ?extend along the lesser curvature), ?witth stigmata Completely eradicated. ?Banded. ?- Normal examined duodenum. ?- No specimens collected. Pertinent Recent Imaging: CT of the abdomen and pelvis at OSH no read Impression: 64-year-old man with a history of ETOH cirrhosis (still activity drinking), and known esophageal varices (? 11/2018 never banded), who initially presented to [facility] with several days of melena followed byhematemesis and was transferred to [facility] for further management who is now s/p banding (4 total) of large esophageal varices and GOV1 on 04/20. We had a long discussion with Mr Henry regarding his liver disease. He repots that this is the 3rd time in the last 5 years that he was admitted for GI bleed. 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 He is not sure if he has ever been tested for hepatitis and it would be worth checking for HV and HBV. He denies any historyof encephalopathy. We discussed with the patient that he is a high risk for rebleeding and would likely benefit from early TIPS. If he does not have TIPS then we would need to repeat EGD with banding for eradication in 2-3 weeks. ?? Recommendations - advance diet to soft foods - second read for CT of the abdomen and pelvis - Echocardiogram for TIPS - Referral to IR for TIPS while inpatient - please check HCV and HBV serologies - hcv antibody, hep B surface antigen - 2 large bore PIVs, active type and screen - continue octreotide gtt (72 hours total) - continue BID PPI - continue IV ceftriaxone for ppx in a cirrhotic for 5 days - obtain RUQ/US with dopplers; if ascites, please do a diagnostic tap - monitor for signs of ETOH withdrawal - encourage ETOH cessation - we will continue to follow This case was discussed with attending Dr. Bledsoe. iPneda Maier M.D. Fellow in Gastroenterology and Hepatology Pager #[phone] 04/21/2019 Attending Addendum: I have seen and examined the patient with Dr. Maier and agree with his note as above. Several studies now show that early TIPS in patients such as this have a better outcome than not doing TIPS or doing TIPS in a rescue fashion. I favor this approach and have discussed it with the patient. Jia Bledsoe MD Yris Funk RN - 04/20/2019 6:50 PM EDT OUTCOME EVALUATION NOTE: OUTCOME SUMMARY: Patient A&OX4, VSS, 1 U PRBC given this shift, stable H & H's. Next draw ~2000. Varies banded in endo this shift, see progress notes. No complaints of pain. Octreotide continues, tolerates clear liquid diet. 2 episodes of melena this shift. No other acute events, family at bedside, supportive of patient, will CTM. PLAN MOVING FORWARD: Stable hemodynamics Advance diet as tolerated AAS Support and comfort Skin surveillance INDIVIDUALIZED FALL PREVENTION INTERVENTIONS: Call mead in reach, patient reliably summons assistance Patient-specific fall risk factors per assessment: [current deficits]: Unfamiliar environment, lines, cords Assistance [level of assistance required for transfers and ambulation]: SBA Supervision [direct monitoring required during toileting and ADLs]: Eyes on Surveillance [continuous indirect monitoring]: Room near nurses station, purposeful rounding Patient-specific fall prevention interventions for sensory deficits provided, if applicable: [X] N/A CPG GOAL OUTCOME EVALUATION: Bam Schrader MD - 04/20/2019 7:59 AM EDT CRITICAL CARE ATTENDING This 64 y.o. year old male was admitted to [facility] with a GI bleed. I have personally examined the patient and reviewed his medical records and radiographic studies. In brief, Mr. Henry has a history of alcoholic cirrhosis with known varices. He presented yesterday with melena and weakness, accompanied by one episode of hematemesis. On arrival at [facility], he was mildlyhypotensive and tachycardic, with a Hgb of 6.7 and a mildly elevated lactate. Since arrival at [facility], he has had a few BPs in the 80's, otherwise normotensive. Thus far he has received 4 units PRBCs, and was started on ceftriaxone, octreotide, and Protonix. He drinks up to 1/3 of a bottle of hard liquor/day; last drink was two days ago. His past medical history is otherwise most notable for HTN. Vital signs: Temp: [36.6 ??C (97.9 ??F)-36.9 ??C (98.4 ??F)] Heart Rate: [69-96] Resp: [12-29] BP: (85-137)/(49-75) SpO2: [98 %-100 %] Heart Rate from SpO2: [69 bpm-100 bpm] Body mass index is 29.55 kg/m??. On exam today, he was alert and interactive; lungs clear, no murmur, soft abdomen, slight LE edema with varicose veins. I reviewed the laboratory data, which were notable for normal WBC, Hgb 6.9, thrombocytopenia, slighthyperchloremic metabolic acidosis, elevated INR, low fibrinogen, mildly elevated lactate. I personally reviewed his radiographic studies. His abdominal CT scan, to my eye, shows a nodular liver. There was no ascites. Assessment and Plan: UGI bleed. He underwent endoscopy with a banding of varices earlier this morning. We will continue the octreotide and ceftriaxone, and observe for any evidence of alcohol withdrawal. IS PATIENT CRITICALLY ILL? Is there a high potential of sudden, clinically significant, or life threatening deterioration? Yes Is there a need for direct personal assessment and management to treat/prevent multiple vital organ failure/deterioration? Yes PATIENT IS CRITICALLY ILL WITH THESE DIAGNOSES BEING MANAGED BY [facility] TEAM: Active Hemorrhage Gastrointestinal I personally performed 35 minutes of aggregate critical care time, exclusive of procedures and teaching. This includes time spent during direct patient evaluation and reassessment, interpretation of diagnostic studies, directing life and/or organ supporting interventions, and documentation on the unit. James Thompson MD - 04/20/2019 5:14 AM EDT [facility] Initial Assessment Note I established audio/visual communication with the patient's room, reviewed eDH, and discussed the patient's case with Pratik Rhodes APRN. History and Assessment: This 64 yo male w/ h/o alcoholic cirrhosis, previous variceal bleed and active EtOH use is being admitted w/ hematemesis and melena. It is most likely that he has a variceal bleed. [facility] Hgb of 7.3, plt-143, and INR of 1.5. He was given 1U PRBCs, Protonix, 2L of NS, and started on an octreotide gtt. Since transfer to [facility], he has had stable vitals, but did have a melenotic stool and his Hgb is 6.3. Plan: Continue octreotide, PPI bid, and will start ceftriaxone for prophylaxis. He is being given more blood w/ serial CBCs being followed. GI has been consulted for an EGD. CIWA for potential withdrawal. Venodynes for DVT prophyalxis. documented in this encounter H&P Notes Javed Salazar, LITIGATION DOCKET MANAGER - 04/21/2019 11:07 AM EDT Images from the original note were not included. INTERVENTIONAL RADIOLOGY FOCUSED H&P and PRE-PROCEDURE NOTE: PCP: No primary care provider on file. Referring Provider: ZENOBIA Planned Procedure: TIPS Order Questions Answers Is the patient on anticoagulant / anitplatelet therapy ? No Reason for exam and clinical history: 64 yo M p/w GIB in t/s/o PMH of Alcoholic Cirrhosis c/b EV, HTN. Per GI: TIPPS candidate. Exam/Procedure requested: IR-guided TIPPS Presenting Diagnosis/ Complaint: From Dr. Maier' note, Benjamín Henry is a 64 y.o. male with a history of ETOH cirrhosis (still activity drinking), and known esophageal varices (? 11/2018 never banded), who initially presented to [facility] with several days of melena followed by hematemesis and was transferred to [facility] ICU for further management who is now s/p banding (4 total) of large esophageal varices and GOV1 on 04/20. Patient has reportedly had 3 admits over the past 5 years for GIB. No history of HE. Patient remains hemodynamically stable without pressors. Received 2 units PRBCs yesterday but none since. Past Medical/Surgical History: Patient Active Problem List Diagnosis Code ??? UGIB (upper gastrointestinal bleed) K92.2 ??? Cirrhosis, alcoholic K70.30 ??? Esophageal varices I85.00 ??? Acute blood loss anemia D62 Past Medical History: Diagnosis Date ??? Alcohol abuse ??? Cirrhosis, alcoholic ??? Esophageal varices ??? HTN (hypertension) Past Surgical History: Procedure Laterality Date ??? PRO UPPER GI ENDOSCOPY, DIAGNOSTIC N/A 04/20/2019 EGD, UPPER GI ENDOSCOPY performed by Jamie Avalos MD at [facility] ??? PRO UPPER GI ENDOSCOPY, LIGAT VARIX 04/20/2019 EGD, W BAND LIGATION OF ESOPHAGEAL/GASTRIC VARICES performed by Jamie Avalos MD at [facility] Medications: Scheduled Meds: ??? melatonin 3 mg Oral Nightly ??? cefTRIAXone 1 g Intravenous Q24H ??? thiamine 100 mg Intravenous Daily ??? folic acid 1 mg Intravenous Daily ??? insulin lispro 2-8 Units Subcutaneous Q4H ELENA ??? benzonatate 100 mg Oral TID ??? pantoprazole 40 mg Oral Daily Continuous Infusions: ??? sodium chloride 0.9% ? ? octreotide (SandoSTATIN) (standard ADULT & Pedi greater than 20kg) infusion 50 mcg/hr (04/21/19 0612) PRN Meds:.sodium chloride 0.9%, Glucose 40% oral gel OR dextrose OR glucagon (human recombinant) Allergies: Aspirin Social History and Habits: Social History Socioeconomic History ??? Marital status: Not on file Spouse name: Not on file ??? Number [...] quittin.5 ??? Smokeless tobacco: Never Used Substance and Sexual Activity ??? Alcohol use: Yes Frequency: 4 or more times a week Drinks per session: 3 or 4 Binge frequency: Daily or almost daily Comment: half a fith of wiskey daily last drink 04-19-19 ??? Drug use: Not on file ??? Sexual activity: Not on file Lifestyle ??? Physical activity: Days per week: Not on file Minutes per session: Not on file ??? Stress: Not on file Relationships ??? Social connections: Talks on phone: Not on file Gets together: Not on file Attends mu-ism service: Not on file Active member of [...] ??? Not on file Significant Family History: History reviewed. No pertinent family history. Pertinent ROS: as per HPI Labs: Results for BENJAMÍN HENRY ( ) as of 04/21/2019 11:34 04/20/2019 05:50 04/20/2019 10:34 04/20/2019 14:30 04/20/2019 20:54 04/21/2019 03:28 Hemoglobin 6.9 (L) 8.7 (L) 8.5 (L) 8.3 (L) 8.1 (L) Hematocrit 22.9 (L) 28.1 (L) 27.3 (L) 26.6 (L) 26.0 (L) Lab Results Component Value Date WBC 8.2 04/21/2019 HCT 26.0 (L) 04/21/2019 PLATELET 94 (L) 04/21/2019 INR 1.6 04/21/2019 BUN 15 04/21/2019 CREATININE 0.71 (L) 04/21/2019 ALKPHOS 59 04/21/2019 AST 52 (H) 04/21/2019 ALBUMIN 2.5 (L) 04/21/2019 BILIDIR 1.2 (H) 04/21/2019 BILITOT 2.1 (H) 04/21/2019 ALT 27 04/21/2019 PROT 5.8 (L) 04/21/2019 Imagin04/19/19 Assessment: 64 y.o. male with known ETOH cirrhosis, actively drinking, with history of GIB and esophogeal varices. Patient admitted from OSH yesterday with recurrent hematemesis. EDG last night showed two columns of non bleeding esophageal varices which were banded. No transfusions since admission and patient hemodynamically stable. Plan: TIPS with (pending) anesthesia; earliest will be 04/23/19 unless patient becomes stable. 04/21/2019 Mehdi Pearson MD - 04/20/2019 4:03 PM EDT Hospital Medicine Admission H&P Active Hospital Problems Diagnosis ??? UGIB (upper gastrointestinal bleed) ??? Acute blood loss anemia ??? Cirrhosis, alcoholic ??? Esophageal varices Resolved Hospital Problems No resolved problems to display. There are no active non-hospital problems to display for this patient. Patient ID: 64 y.o. male with a PMH significant for alcoholic cirrhosis (actively drinking), esophageal varices, HTN who was admitted to the MICU from [facility] ED on 04/20 for GI bleed. CC: Hematemesis HPI Patient initially presented to [facility] for melena and hematemesis where he was found to have a hemoglobin of 7.3. He would be given a single unit of pRBC, IV PPI, 2L NS, and started on octreotide gtt prior to transfer for EGD. Upon arrival to [facility] early this morning, patient would receive an additional 3units of pRBC for Hg of 6.7. He was notably afebrile, with HR 93 and BP 108/71; sating 100% on RA. He would subsequently be taken to the endoscopy suite where an upper EGD demonstrated two columns of non-bleeding large (> 5 mm) varices without stigmata of recent bleeding. He would subsequently have3 bands placed that led to successful variceal deflation. A band would also be placed over a type 1 g astroesophageal varices resulting in successful deflation. Currently, patient states that he is feeling well and that pain/coughing after the procedure has resolved. He states that he began to experience increasing stool output yesterday, noting ~8 stools thatbecame progressively dark and loose throughout the day. Concurrently, he also had 3 episodes of darkhematemesis and growing progressively dyspneic. Notes a similar episode of hematemesis and dark stools last year that led him to present to OSH but was not hospitalized. He states that he stopped drinking after that event for ~7 weeks without symptoms of withdrawal. Reports last drink was the evening of 04/18/19. Denies any history of withdrawal symptoms in the past or currently. Lastly patient states that he has a chronic productive cough that is typically worse in the AM. Occasionally, he will note scant blood. 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 Review of Systems (positives in bold) General: chills, fatigue, fever or night sweats Eye: blurry vision, double vision, loss of vision or photophobia HENT: headaches, sore throat or vertigo Heme/Lymph: Bleeding/bruising, blood clots, jaundice, pallor or swollen lymph nodes Resp: cough, hemoptysis, orthopnea, shortness of breath or wheezing Cardio: chest pain, dyspnea on exertion, edema, loss of consciousness, palpitations, paroxysmal nocturnal dyspnea or shortness of breath Gastro: abdominal pain, blood in stools, constipation, diarrhea, heartburn, hematemesis, melena or nausea/vomiting : dysuria, hematuria or urinary frequency/urgency MSK: joint pain, joint stiffness, joint swelling, muscle pain or muscular weakness Neuro:dizziness, gait disturbance, impaired coordination/balance, memory loss, numbness/tingling, seizures, speech problems, tremors or visual changes Derm: lumps or rash PMH Past Medical History: Diagnosis Date ??? Alcohol abuse ??? Cirrhosis, alcoholic ??? Esophageal varices ??? HTN (hypertension) PSH History reviewed. No pertinent surgical history. Allergies: Allergies Allergen Reactions ??? Aspirin Other (See Comments) It makes me bleed. Meds No current facility-administered medications on file prior to encounter. No current outpatient medications on file prior to encounter. Family History History reviewed. No pertinent family history. Social History Social History Socioeconomic History ??? Marital status: Not on file Spouse name: Not on file ??? Number [...] quittin.5 ??? Smokeless tobacco: Never Used Substance and Sexual Activity ??? Alcohol use: Yes Frequency: 4 or more times a week Drinks per session: 3 or 4 Binge frequency: Daily or almost daily Comment: half a fith of wiskey daily last drink 04-19-19 ??? Drug use: Not on file ??? Sexual activity: Not on file Lifestyle ??? Physical activity: Days per week: Not on file Minutes per session: Not on file ??? Stress: Not on file Relationships ??? Social connections: Talks on phone: Not on file Gets together: Not on file Attends mu-ism service: Not on file Active member of [...] Social History Narrative ??? Not on file Vital Signs Last value Range last 24 hrs Temperature Temp: 36.6 ??C (97.9 ??F) Temp: [36.5 ??C (97.7 ??F)-36.9 ??C (98.4 ??F)] Heart rate Heart Rate: 62 Heart Rate: [62-96] Blood pressure BP: 131/82 BP: (85-161)/(49-109) Respiratory rate Resp: 17 Resp: [12-29] SpO2 SpO2: 99 % on RA SpO2: [98 %-100 %] Physical Exam Gen: NAD, resting comfortably HEENT: sclera non-icteric, neck supple, no LAD, no carotid bruits CV: RRR, S1S2, no MRG, JVP absent, 2+radial & posterior tibial, femoral and pedal pulses Pulm: good air movement, CTAB, no wheezing, crackles or rhonchi Abd: soft, NT/ND, +BS Ext: no peripheral edema, no clubbing, no cyanosis. Skin: warm and dry, no rash or petechiae Neuro: AOx3. no focal deficits grossly noted. CN II-XII intact Labs Recent Labs 04/20/19 1430 04/20/19 1034 04/20/19 0550 04/20/19 0350 WBC 5.9 8.0 -- 6.8 HGB 8.5* 8.7* 6.9* 6.7* PLATELET 87* 85* 91* 89* Recent Labs 04/20/19 0240 NA 139 K 4.5 CL 108* CO2 21* BUN 22* CREATININE 0.76* GLUCOSE 110 CALCIUM 7.2* MAGNESIUM 0.68* PHOS 2.8 Recent Labs 04/20/19 0240 PROT 5.9* ALBUMIN 2.5* BILITOT 1.4* BILIDIR 0.7* AST 51* ALT 26 ALKPHOS 74 No results for input(s): CK, TROPONINT in the last 168 hours. Diagnostics: EGD Findings: ?Two columns of non-bleeding large (> [...] entire examined stomach. ?The examined duodenum was normal Assessment/Plan 64 y.o. male with a PMH significant for alcoholic cirrhosis (actively drinking), esophageal varices,HTN who was admitted to the MICU from [facility] ED on 04/20 for hematemesis 2/2 variceal bleed who is now s/p upper EGD and banding. Patient has remained hemodynamically stable since his variceal banding. Will continue to trend hemoglobin, cognizant of fact it will likely decrease to a small degree as blood is redistributed. Will proceed with RUQ US to determine if ascites is present, which would warrant diagnostic tap for SBP. In light of patient's overall hemodynamic stability and lack of scoring on CIWA, he is suitable for transfer to hospital medicine floor bed. #Upper Intestinal Bleed 2/2 Esophageal Varices #Hx Alcohol Related Cirrhosis #Acute Blood Lose Anemia - ct ceftriaxone x5d - trend Hg. Repeat at 2000. If stable, will check q12hr. - f/u US Abdomen (tap if ascites present) - PPI QD - maintain 2 large bore peripheral IVs - monitor for signs of bleed reoccurrence - GI consulted; appreciate recs - Consult BIT team #Hx Chronic Alcohol Abuse - ct CIWA, w/o ativan - thiamine - folic acid # FEN/PPX -Diet: Clear Liquid Diet -DVT ppx: None -GI ppx: IV Pantoprazole Dispo: Medicine Floor Code Status: Full Code Mehdi Pearson MD PGY1, Internal Medicine Green Team #[id number] 04/20/2019 Associated attestation - Ratna Mcclain MD - 04/20/2019 8:50 PM EDT Attending Attestation Please see Dr. Pearson's note for details of the patient history of presentation and data. I have discussed, reviewed and agree with the documented History, Physical findings, Assessment and Plan of care. I have examined the patient myself and personally reviewed all studies. In addition, I certify that I am a [facility] credentialed attending provider with admitting privileges and that the patient meets or has met medical necessity to require an inpatient IPI level of care meeting a minimum of two midnights or is on the [facility] inpatient only procedure list (status C) due to: variceal hemorrhage Hemoglobin stable after banding of esophogeal varices. Continue octreotide for total 72 hours (ie infusion set to end at ~03:00 on 04/23. As he is markedly clinically improved we may discuss safety of early discontinuation of octreotide. Continue PPI. Continue ceftriaxone, anticipate seven day course of antibiotics total of GI bleed antibiotic prophylaxis. Follow-up RUQ ultrasound, if significant ascites present, we will undertake paracentesis. Monitor on CIWA, not scoring thus far. Consult BIT team,he was not interested in counseling, therapy or pharmacologic interventions to assist with alcohol abstinence, when we discuss this issue this evening. Marilyn Choudhary MD - 04/20/2019 9:13 AM EDT Gastroenterology and Hepatology Pre-Procedure History and Physical Exam Procedure: EGD: Indication: hematemesis Please see GI consult note for more details Patient Active Problem List Diagnosis Code ??? UGIB (upper gastrointestinal bleed) K92.2 ??? Cirrhosis, alcoholic K70.30 ??? Esophageal varices I85.00 EXAM: HEENT: Airway examined, oropharynx clear Mallampati [...] procedure explained to the patient. Consent signed. Anil Nova APRN - 04/20/2019 2:56 AM EDT Critical Care Admission Note Benjamín Henry is a 64 y.o. male with a PMH significant for alcoholic cirrhosis (actively drinking), esophageal varices, HTN who was admitted to the MICU from [facility] ED on 04/20 with a GI bleed. HPI: Ed had been in his normal state of health until the past few days when he developed black, tarry stools. These increased in frequency and volume and turned to a brighter maroon color. He also had several episodes of vomiting maroon-colored blood with clots, with increasing weakness, activity intolerance, and dizziness. He denies pain, fever, and other symptoms. He has had several endoscopies over the years and states that he had one in November where varices were seen for the first time, but is somewhat of a limited historian. He last drank some whiskey on the and attempted to drink a hard cideryester, but had difficulty keeping it down. He presented to the ED at [facility] where he was found to be mildly hypotensive and tachycardic. Limited data are provided from his ED course, but he had continued melena and dark hematemesis after arrival.His workup was notable for the following: H&H= 7.3/26.1, PLT 143 INR= 1.5 BUN/Cr. 26/1.1 AST= 58, TBili= 1.1 Lipase= 121 Troponin < 0.05 CT C/A/P= Cirrhosis; diverticulosis; cholelithiasis; several dilated and fluid- filled bowel loops (OSH radiology report) He was given 1 U PRBC, a normal saline bolus, and octreotide and pantoprazole infusions. He remainedhemodynamically stable in transport without further hematemesis. ROS: .Review of Systems - Negative except as noted in HPI Past Medical History: Diagnosis Date ??? Alcohol abuse ??? Cirrhosis, alcoholic ??? Esophageal varices ??? HTN (hypertension) No past surgical history on file. No family history on file. Social History: Lives in rented housing in [facility]. His brother Fr. Mark Henry is his NOK and designated surrogate decision-maker. Actively drinks, former smoker. Outpatient medications: No current facility-administered medications on file prior to encounter. No current outpatient medications on file prior to encounter. Allergies Allergen Reactions ??? Aspirin Other (See Comments) It makes me bleed. Last value Range last 24 hrs Temperature Temp: 36.7 ??C (98.1 ??F) Temp: [36.7 ??C (98.1 ??F)] Heart Rate Heart Rate: 93 Heart Rate: [93] Blood Pressure BP: 108/71 BP: (108)/(71) Respiratory Rate Resp: 12 Resp: [12] SpO2 SpO2: 100 % SpO2: [100 %] Art BP BP (Arterial Line): -- Ventilator Settings: Room air Physical Exam: General: Male patient in NAD HEENT: Atraumatic, nomocephalic. Sclera anicteric and non-injected. Trachea midline, no JVD. Neuro: A&Ox3, GCS 15. PERR. No focal motor deficit Pulmonary: Lungs CTA bilaterally Cardiovascular: S1S2, RRR, no MRG. DP/radial pulses 2+ Abdomen: Soft, distended, hyperactive BS : Voids PRN Extremities: Atraumatic Skin: Bruising and excoriation from a recent fall on his back Labs: Last 3 wbc, hgb, hct plt Recent Labs 04/20/19 0240 WBC Clotted HGB Clotted HCT Clotted PLATELET Clotted Last 3 Lytes Recent Labs 04/20/19 0240 NA 139 K 4.5 CL 108* CO2 21* BUN 22* CREATININE 0.76* Last 3 LFTs No results for input(s): AST, ALT, ALKPHOS, BILITOT, BILIDIR in the last 7068 hours. Last Ca, Mg, Phos Recent Labs 04/20/19 0240 CALCIUM 7.2* PHOS 2.8 Last 3 Coags Recent Labs 04/20/19 0240 PT 21.9* INR 1.9 Lactate= 3 Microbiology: No cx data ECG: Pending Imaging: CT results as in HPI Assessment: 64 y.o. male patient with known cirrhosis and esophageal varices who presents with upperand lower GI bleeding, blood loss anemia, and mild lactate elevation. Given his history and course, a variceal source is most likely. He has remained hemodynamically stable since arrival without further hematemesis and a single episode of melena. His Hgb has fallen to 6.8 from 7.1 in spite of 1 unit PRBC from the OSH. Plan for endoscopy this morning. Plan: Neuro: ?? Neurologically intact ?? No active pain or sedation needs ?? Monitor for evidence of ETOH withdrawal ?? Thiamine, folate Pulm: ?? Stable on room air ?? IS/early mobility/pulm toilet CV: Lactic acidosis ?? HD stable ?? Goal MAP > 65 ?? Lactate elevated at 3, may also be a component of impaired metabolism due to cirrhosis ?? Blood product resuscitation as necessary GI: GIB, suspect variceal ?? Plan for endoscopy this morning ?? Pantoprazole infusion followed by BID dosing ?? Octreotide gtt ?? Sips and chips give meds Renal/FEK: ?? Q2H I&O ?? Voids PRN ?? Replete lytes PRN Hematology: ?? q4H hemogram, INR, fibrinogen, PLT ?? Give 1 U PRBC now, will recheck hemorrhage lab panel when complete ?? Goal-directed transfusion strategy ?? Hold DVT chemoppx ?? SCDs ?? Large bore IV x 2 ?? Active T&S ID: ?? CTX for ppx Endocrine: ?? SSI Other prophylaxis: SCDs for DVT prophylaxis Protonix for GI prophylaxis HOB > 30 Chlorhexidine mouth care N Mepliex to sacrum PT/OT: Lines/Tubes/Drains: PIVs Consults: GI Decision Making: Patient (brother Mark is designated surrogate) Code Status: Full Disposition: ICU Anil Rhodes, LITIGATION DOCKET MANAGER April 20, 2019 Critical Care Green Team (pager [phone]) Dr. Umaña is the attending of record for this admission IS PATIENT CRITICALLY ILL ? Is there a high potential of sudden, clinically significant, or life threatening deterioration? Yes Is there a need for direct personal assessment and management to treat/prevent multiple vital organfailure/deterioration? Yes PATIENT IS CRITICALLY ILL WITH THESE DIAGNOSES BEING MANAGED BY CCS TEAM: Acidosis Metabolic Lactic Active Hemorrhage Gastrointestinal Anemia Acute blood loss Coagulopathy Req Active Treatment Unspecified I personally performed 40 minutes of aggregate critical care time exclusive of procedures and teaching between 0230 and 0405. This includes time spent during direct patient evaluation and reassessment,interpreting diagnostic tests, directing life and/or organ supporting interventions and documentation on the unit. Anil Rhodes APRN 04/20/2019 documented in this encounter Miscellaneous Notes Plan of Care - Tres Carpio RN - 04/22/2019 5:56 AM EDT Problem: Patient Care Overview Goal: Plan of Care Review Outcome: Ongoing (Interventions Implemented as Appropriate) 04/22/19 0554 Coping/Psychosocial Plan Of Care Reviewed With patient Plan of Care Review Progress improving OUTCOME EVALUATION NOTE: OUTCOME SUMMARY: Shift Summary: Hgb 7.7 this AM. Patient slightly hypotensive overnight but improves when awake. SB on the monitor. Otherwise stable. PLAN MOVING FORWARD: EGD CPG GOAL OUTCOME EVALUATION: Goal: Fall Prevention-Safe Patient Handling Outcome: Ongoing (Interventions Implemented as Appropriate) 04/22/19 0554 Restraint Interventions Safety Promotion/Fall Prevention activity supervised Activity Activity Type activity adjusted per tolerance Activity Assistance Provided independent Goal: Infection Control Outcome: Ongoing (Interventions Implemented as Appropriate) 04/22/19 0554 Safety Interventions Isolation Precautions standard precautions maintained Problem: Skin Integrity Impairment, Risk/Actual (Adult) Goal: Identify Related Risk Factors and Signs and Symptoms Related risk factors and signs and symptoms are identified upon initiation of Human Response Clinical Practice Guideline (CPG) Outcome: Ongoing (Interventions Implemented as Appropriate) 04/22/19 0554 Skin Integrity Impairment, Risk/Actual Skin Integrity Impairment, Risk/Actual: Related Risk Factors immobility;infection/disease process Goal: Skin Integrity/Wound Healing Patient will demonstrate the desired outcomes by discharge/transition of care. Outcome: Ongoing (Interventions Implemented as Appropriate) 04/22/19 0554 Skin Integrity Impairment, Risk/Actual (Adult) Skin Integrity/Wound Healing making progress toward outcome Problem: Gastrointestinal Bleeding (Adult) Goal: Signs and Symptoms of Listed Potential Problems Will be Absent, Minimized or Managed (Gastrointestinal Bleeding) Signs and symptoms of listed potential problems will be absent, minimized or managed by discharge/transition of care (reference Gastrointestinal Bleeding (Adult) CPG). Outcome: Ongoing (Interventions Implemented as Appropriate) 04/22/19 0554 Gastrointestinal Bleeding Problems Assessed (GI Bleeding) all Problems Present (GI Bleeding) situational response Plan of Care - Mindy Bonilla RN - 04/21/2019 7:39 PM EDT OUTCOME EVALUATION NOTE: OUTCOME SUMMARY: Ed is A&Ox4, calm and cooperative. AAS continued - pt not scoring @ this time. Abd US and Echo completed this afternoon, see results. Pt c/o burning and discomfort while swallowing soft foods today @ 2/10, but reports that it subsides on its own afternoon a few minutes of rest without any intervention. Pt educated to maintain clear liquids if he feels he cannot tolerate soft foods without any discomfort. Worked with PT this afternoon and went for a walk, see note. Able to make needs known. Will CTM. PLAN MOVING FORWARD: - Advance diet as tolerated - NPO @ 0000 for EGD ceferino? - Transition to lower level of care INDIVIDUALIZED FALL PREVENTION INTERVENTIONS: Patient-specific fall risk factors per assessment: [current deficits]: Unfamiliar environment, generalized weakness, AAS, previous fall, IV sites/pole, recent blood transfusions, monitor cords Assistance [level of assistance required for transfers and ambulation]: SBA/independent Supervision [direct monitoring required during toileting and ADLs]: Eyes-on, hands-on Surveillance [continuous indirect monitoring]: Eyes-on, hands-on, bed alarm refused, Lay ICU monitor, room near nurses' station Patient-specific fall prevention interventions for sensory deficits provided, if applicable: [X] N/A CPG GOAL OUTCOME EVALUATION: Initial Assessments - Hilaria Sanders RN - 04/21/2019 3:19 PM EDT Office of Care Management Initial Assessment Hilaria Sanders RN reviewed record and discussed patient with Care Team. Source of Information: pt Introduced self/reviewed role; services accepted. Reason for Hospitalization: Reason for Admission as Stated by Patient: mich Henry is a 64 y.o. male with??a history of??ETOH cirrhosis??(still activity drinking), and known esophageal varices??(???11/2018??never banded), who initially presented??to [facility] with several days of melena followed by??hematemesis and was transferred to [facility] ICU for further management who is now s/p banding??(4 total)??of large esophageal varices and??GOV1 on 04/20. Patient has reportedly had 3 admits over the past 5 years for GIB. No history of HE. Patient remains hemodynamically stable without pressors. Received 2 units PRBCs yesterday but none since. ??Javed Salazar, APRNDate of Service: 04/21/2019 11:07 AM Past Medical/Surgical History: Past Medical History: Diagnosis Date ??? Alcohol abuse ??? Cirrhosis, alcoholic ??? Esophageal varices ??? HTN (hypertension) Hospitalizations Within the Past 30 Days: See H&P Anticipated Length Of Stay (If known): Current Decision-Making Capacity: a,ox3 Advance Care Planning: none written States has brother Father Mark Henry wheel grinder [phone] would be surrogate decision maker per [place] surrogate decision making law. Any patient receiving care at [facility] must abide by [place] law. The hierarchy for surrogate decision making is: (a) Patient???s spouse, or civil union partner or common law spouse unless there is a divorce proceeding, separation agreement, or restraining order limiting that person???s relationship with the patient. (b) Any adult son or daughter of the patient. (c) Either parent of the patient. (d) Any adult brother or sister of the patient. (e) Any adult grandchild of the patient. (f) Any grandparent of the patient. (g) Any adult aunt, uncle, niece, or nephew of the patient. (h) A close friend of the patient. (i) The agent with financial power of sports attorney or a conservator appointed in accordance with RSA 464-A. (j) The guardian of the patient???s estate. Current Coping/Education/Information Needs: CMbexplained VNA/SNF/Ipr /outpt services Current Functional Ability: ambulatory.on Room air,a,ox3 Functional Status Prior to Admission: 100%ADLindi/drives self/ no DME used Home Environment: lives in garage apt 12 steps YTD, alone,single Social & Family Supports/Community Resources: single, list a brother Mark Henry Behavior[facility] History: denied Substance Use/Abuse: ETOH abuseConsult BIT team, he was not interested in counseling, therapy or pharmacologic interventions to assist with alcohol abstinence, when we discuss this issue this evening. Ratna Mcclain MD at 04/20/2019 8:50 PM ?? Other Pertinent/Service Specific Information: declined serviceswanted/needed Health/Prescription Coverage: Primary Insurance: N/A Secondary Insurance: N/A Prescription Coverage: states has [place] CM updated demo sheet Preferred Pharmacy: [facility] Primary Care Provider: No primary care provider on file. None Patient/Caregiver Goals of Treatment: declined services Potential Needs for Transition of Care: Rehab/SNF: declined Home Health: needs PCP DME: na Dialysis: na Community Resources: has [facility] Transportation: family Anticipated Barriers to Discharge/Special Considerations: active ETOH abuse w/cirrhosis,denies treatment options Assessment: 64yowm in w/ UGI Bleed w/ known cirrhoisis, active ETOH drinker has denied wanting SA cessation resources In past, declined services, TRANSCRIPTION COORDINATOR for SA cessation resources consult placed. Plan: A member of the Care Management team will continue to monitor progress, follow for continuity of care and assist with transition of care planning. Hilaria Sanders, RN Pager: [phone] ' Plan of Care - Kaylee Bain, PT - 04/21/2019 10:05 AM EDT Physical Therapy Evaluation Patient profile: Pt is a 64 y.o.??male??with a PMH significant for alcoholic cirrhosis (actively drinking), esophageal varices, HTN who was admitted to the MICU from [facility] ED on 04/20??for hematemesis 2/2 variceal bleed who is now s/p upper EGD and banding on 04/20. Plan for RUQUS and echocardiogram today(04/21) with anticipation of IR placement later this afternoon. 24 H: - single dark BM overnight, hemodynamically unchanged (intermittently soft SBP 90s while sleeping) and Hg unchanged - Hg stable in AM Patient with the following active problems: Past Medical History: Diagnosis Date ??? Alcohol abuse ??? Cirrhosis, alcoholic ??? Esophageal varices ??? HTN (hypertension) Past Surgical History: Procedure Laterality Date ??? PRO UPPER GI ENDOSCOPY, DIAGNOSTIC N/A 04/20/2019 EGD, UPPER GI ENDOSCOPY performed by Jamie Avalos MD at [facility] ??? PRO UPPER GI ENDOSCOPY, LIGAT VARIX 04/20/2019 EGD, W BAND LIGATION OF ESOPHAGEAL/GASTRIC VARICES performed by Jamie Avalos MD at [facility] Social History: Home set-up: Lives alone in an apartment above a garage with 1 FOS to enter with rail. Retired but does work part-time with [employer] like jobs. Baseline Mobility: Independent Precautions/Special Considerations: Monitor hemoglobin (8.1), pIV, tele Activity Orders: AAT Mobility and Positioning Recommendations: ?? Pt. to utilize IV pole or no AD and SBA for ambulation and transfers with nursing. ?? Please encourage up to chair for meal times as able. ?? Pt encouraged to ambulate frequently with staff, getting into the bathroom for toileting and walking out in the [place] >/= 3 times daily as able. Subjective: ???I'm feeling a little fatigued?? Objective: Pt seen for evaluation today. Pain: Rest: 0/10 Endorses increase in pain with coughing and swallowing in throat Vital Signs: BP: 104/76pre 108/71post Mental Status: alert, oriented to person, place, and time Vision: WFL Skin: WFL Musculoskeletal: ROM: WFL Strength: WFL Sensation: WFL Bed Mobility: Supine to Sit: Independent Sit to Supine: Independent Transfers: Sit to Stand: Independent Stand to Sit: Independent Gait: Distance: 150 Device used: IV pole Level of assist: SBA Gait mechanics: Steady, asymptomatic Reported some fatigue. Educated to continue to mobilize with nsg for mobility benefits. Stairs: TBA Balance: Sitting Static: normal Sitting Dynamic: Normal Standing Static: Good Standing Dynamic / Gait: Good Education: patient has been educated on Bed mobility, Transfers, Exercise, Safety , Gait , Activity pacing/Energy conservation, Role of therapy and Discharge planning and verbalizes understanding. Patient status, treatment, and mobility recommendations discussed with nursing. Assessment: Benjamín Henry was seen today for physical therapy evaluation. Presents with decreased activity tolerance, fluctuating pain, and ongoing workup requiring close monitoring of labs and vitals.Primary c/o fatigue this session but despite this he mobilized well. Ambulated long distances steadily with use of the IV pole for support. Educated re mobility progression and frequency for functionalmobility benefits. Anticipate likely d/c to home when medically able, will continue to monitor and f/u closer to d/c. Recommend continued, daily mobility with nsg. The pt would benefit from skilled therapy services while in the hospital to maximize functional abilities. Discharge Recommendations: Based on the current findings, Anticipated Discharge Disposition: home when medically ready for hospital discharge. Consult Recommendations: No other consults recommended at this time. Equipment needs: No equipment necessary Goals: To be achieved by 04/25/19: 1. Pt. to demonstrate knowledge of safety limitations and precautions and will appropriately requestassistance for functional activities and to mobilize. 2. Pt. to ambulate 150 feet independently 3. Pt. to ambulate up/down 12 step/stairs using one rail independently. Plan: Therapy Frequency: 1-3 times/wk for therapy including balance training, bed mobility training,gait training, home exercise program, patient/family education, stair training, strengthening and transfer training. Patient/family understand and agree with plan as stated above. 2017 PT Evaluation Code Rationale: ?? Diagnosis & Pertinent Co-Morbidities, personal factors, and present illness affecting Plan ofCare: (see above); Additional personal factors or co- morbidities that impact plan: ?? Total # of Factors: 0 1-2 3+ X ?? Examination of body system impairments, functional limitations and behaviors, and/or participation restrictions. Addressing 1-2 elements Addressing 3 + elements x Addressing 4 + elements ?? Clinical presentation: See assessment above. Stable/Uncomplicated Evolving/Fluctuating Symptoms Unstable/Unpredictable x ?? Clinical decision making of moderate complexity based on pt's functional performance as outlined in this evaluation. Time IN / OUT: 1005/1021 Total Evaluation Minutes, Physical Therapy: 15(eval) Kaylee Bain, PT, DPT Pager: [phone] Physical Therapy Inpatient Rehabilitation Department Plan of Care - Tres Carpio RN - 04/21/2019 6:39 AM EDT Problem: Patient Care Overview Goal: Plan of Care Review Outcome: Ongoing (Interventions Implemented as Appropriate) 04/21/19 06 Coping/Psychosocial Plan Of Care Reviewed With patient Plan of Care Review Progress improving OUTCOME EVALUATION NOTE: OUTCOME SUMMARY: Shift Summary: Octreotide gtt continues. Hgb stable. 1 dark red BM this shift. SR on the monitor. VSS. PLAN MOVING FORWARD: Monitor Hgb CPG GOAL OUTCOME EVALUATION: Goal: Fall Prevention-Safe Patient Handling Outcome: Ongoing (Interventions Implemented as Appropriate) 04/21/19 06 Restraint Interventions Safety Promotion/Fall Prevention activity supervised Activity Activity Type activity adjusted per tolerance Activity Assistance Provided independent Problem: Skin Integrity Impairment, Risk/Actual (Adult) Goal: Identify Related Risk Factors and Signs and Symptoms Related risk factors and signs and symptoms are identified upon initiation of Human Response Clinical Practice Guideline (CPG) Outcome: Ongoing (Interventions Implemented as Appropriate) 04/21/19636 Skin Integrity Impairment, Risk/Actual Skin Integrity Impairment, Risk/Actual: Related Risk Factors environmental exposure Goal: Skin Integrity/Wound Healing Patient will demonstrate the desired outcomes by discharge/transition of care. Outcome: Ongoing (Interventions Implemented as Appropriate) 04/21/19636 Skin Integrity Impairment, Risk/Actual (Adult) Skin Integrity/Wound Healing making progress toward outcome Problem: Gastrointestinal Bleeding (Adult) Goal: Signs and Symptoms of Listed Potential Problems Will be Absent, Minimized or Managed (Gastrointestinal Bleeding) Signs and symptoms of listed potential problems will be absent, minimized or managed by discharge/transition of care (reference Gastrointestinal Bleeding (Adult) CPG). Outcome: Ongoing (Interventions Implemented as Appropriate) 04/21/19636 Gastrointestinal Bleeding Problems Assessed (GI Bleeding) all Problems Present (GI Bleeding) none Op Note - Jamie Avalos MD - 04/20/2019 11:15 AM EDT [facility] [place] Patient Name: Benjamín Henry : [id number] MR#: [id number] Case Date: 04/20/2019 Surgeon: Surgeon(s) and Role: * Jamie Avalos MD - Primary * Marilyn Choudhary MD - Fellow Preoperative diagnosis: hematemesis Postoperative diagnosis: * No post-op diagnosis entered * Procedure(s): EGD, UPPER GI ENDOSCOPY EGD, W BAND LIGATION OF ESOPHAGEAL/GASTRIC VARICES Please see Provation report for details. Consult Note - Marilyn Choudhary MD - 04/20/2019 7:32 AM EDT Gastroenterology & Hepatology Inpatient Consultation Benjamín Henry 1955 [id number] PCP: No primary care provider on file. Date of Admission: 04/20/2019 ( Hospital Day 0 days ) Attg: Zeus Umaña MD Source: patient Reason for Consult: hematemesis History of Present Illness: 64-year-old man with alcohol use disorder, ETOH cirrhosis, and known esophageal varices, who went [facility] ED last night with hematemesis. He reports several days of melena and then maroon stools. States he had an EGD in November with varices, but has never been banded before. He continues to actively drink alcohol. He went to the ED at [facility] where he was hypotensive, tachycardic, Hgb 7.3. He was given 1 unit PRBCs, 1L NS, started on octreotide and PPI, and transferred to [facility] [place]. On arrival to [facility] MICU, he received 2 units of PRBCs. No further hematemesis. He was continued on octreotide and PPI. In terms of his liver disease, he believes he has a diagnosis of cirrhosis, and also may have some spots on his liver which he has not followed up on. He is not able to relay much more information about his liver disease, including where he gets his care, what medications he takes for his liver disease, and what has been done in the past for his liver disease. Social History Social History Socioeconomic History ??? Marital status: Not on file Spouse name: Not on file ??? Number [...] Tobacco Use ??? Smoking status: Former Smoker Types: Cigarettes Last attempt to quit: 04/20/2012 Years since quittin.0 ??? Smokeless tobacco: Never Used Substance and Sexual Activity ??? Alcohol use: Yes Frequency: 4 or more times a week Drinks per session: 3 or 4 Binge frequency: Daily or almost daily Comment: half a fith of wiskey daily last drink 04-19-19 ??? Drug use: Not on file ??? Sexual activity: Not on file Lifestyle ??? Physical activity: Days per week: Not on file Minutes per session: Not on file ??? Stress: Not on file Relationships ??? Social connections: Talks on phone: Not on file Gets together: Not on file Attends mu-ism service: Not on file Active member of [...] Social History Narrative ??? Not on file Family History No family history on file. Review of Systems: 10 systems reviewed, remainder negative unless otherwise indicated in HPI Medications Reviewed Physical Examination Vitals: Last value Range last 24 hrs Temperature Temp: 36.8 ??C (98.2 ??F) Temp: [36.6 ??C (97.9 ??F)-36.9 ??C (98.4 ??F)] Heart Rate Heart Rate: 69 Heart Rate: [69-96] Blood Pressure BP: 137/49 BP: (85-137)/(49-75) Respiratory Rate Resp: 17 Resp: [12-29] SpO2 SpO2: 100 % SpO2: [98 %-100 %] Intake/Output Summary (Last 24 hours) at 04/20/2019 0732 Last data filed at 04/20/2019 07 Gross per 24 hour Intake 590.5 ml Output 200 ml Net 390.5 ml Wt Readings from Last 3 Encounters: 04/20/19 92.1 kg (203 lb 0.7 oz) Body mass index is 29.55 kg/m??. Most Recent Vitals: 04/20/19727 BP: 137/49 Pulse: 69 Resp: 17 Temp: 36.8 ??C (98.2 ??F) SpO2: 100% Gen: pale, fatigued, NAD Neuro: AAOx3, slow to answer questions, mildly confused Heent: NC/AT, anicteric sclera CVS: RRR no murmurs Lungs: CTAB anteriorly Abd: soft, NT, ND, NABS : no conner Skin: no rash appreciated on forearms / LE Ext: no edema Labs: Reviewed in EMR. Recent pertinent labs include: Pertinent Endoscopic Procedures/Reports: Reviewed in eDH Per pt, has had endoscopies in the past with large varices, no banding. Unclear timeline. Pertinent Recent Imaging Reviewed in eDH Assessment: 64-year-old man with alcohol use disorder, ETOH cirrhosis, and known esophageal varices, who went [facility] ED last night with hematemesis concerning for a variceal bleed. We will plan for an urgent ED first thing this morning. In the meantime, please continue octreotide gtt, ceftriaxone, BID IV PPI, supportive care and resuscitation per MICU team. In terms of his liver disease, please obtain OSH records regarding previous work up. He is very unclear about his diagnosis, but did mention some concerning spots on his liver. Would also recommend aRUQ/US with dopplers to assess for new thrombus and for ascites -- if he has ascites, would recommend a diagnostic tap to r/o SBP. Agree with monitoring for ETOH withdrawal as well as high dose thiamine/folate. Recommendations - 2 large bore PIVs, active type and screen - will plan for urgent endoscopy this morning - continue octreotide gtt - continue BID PPI - continue IV ceftriaxone for ppx in a cirrhotic for 5 days - obtain RUQ/US with dopplers; if ascites, please do a diagnostic tap - monitor for signs of ETOH withdrawal - encourage ETOH cessation - we will continue to follow This patient was seen and discussed with the attending, Dr. Robbie Choudhary MD Gastroenterology Fellow 04/20/2019 Associated attestation - Jamie Avalos MD - 04/20/2019 1:19 PM EDT I have independently seen and examined the patient, and have reviewed the resident???s above note, and agree with the documented history, physical findings, and study results; my evaluation of the patient is below: Met with Mr Henry. Alcohol related cirrhosis with varices presenting with hematemesis. Agree with plan to proceed with EGD Jamie Avalos MD documented in this encounter Plan of Treatment Scheduled Orders Name Type Priority Associated Diagnoses Order S chedule EKG 12 Lead ECG STAT UGIB (upper gastrointestinal One Time for 1 Occurrences bleed) starting 2018 until 04/20/2019 Scheduled Procedures Name Priority Associated Diagnoses Date/Time EGD, UPPER GI ENDOSCOPY Alcoholic cirrhosis, uns pecified whether ascites present Portal hypertension Scheduled Referrals Name Type Priority Associated Diagnoses Order S chedule Referral to Outpatient Referral Routine UGIB (upper Ordered: General Internal gastrointestina l bleed) 04/22/2019 Medicine Acute blood loss anemia Alcoholic cirrhosis of liver with ascit es Bleeding esophageal varices, unspecified esophageal varices type documented as of this encounter Procedures Procedure Name Priority Date/Time Associated Diagnosis Comme nts LAB SCAN 04/23/2019 12:00 Results for this AM EDT procedure are i n the results section. REQUEST FOR 2ND READ Routine 04/22/2019 2:[address] ABDOMEN AND PELVIS PM EDT proced ure are in the results section. POCT GLUCOSE Routine 04/22/2019 11:37 Results for this AM EDT procedure are i n the results section. POCT GLUCOSE Routine 04/22/2019 8:22 Results for this AM EDT procedure are i n the results section. HEMOGRAM STAT 04/22/2019 4:30 Results for this AM EDT procedure are i n the results section. DIFFERENTIAL, STAT 04/22/2019 4:30 Results for this AUTOMATED AM EDT procedure are i n the results section. HEPATITIS C ANTIBODY Routine 04/22/2019 4:30 Resu lts for this AM EDT procedure are i n the results section. HEPATITIS B CORE Routine 04/22/2019 4:30 Results for this ANTIBODY, IGM AM EDT procedure are in the results section. HEPATITIS B CORE Routine 04/22/2019 4:30 Results for this ANTIBODY, TOTAL AM EDT procedure ar e in the results section. HEPATITIS B SURFACE Routine 04/22/2019 4:30 Resul ts for this ANTIBODY AM EDT procedure are i n the results section. HEPATITIS B SURFACE Routine 04/22/2019 4:30 Resul ts for this ANTIGEN AM EDT procedure are i n the results section. CBC (WITH DIFF) STAT 04/22/2019 4:30 AM EDT PHOSPHORUS STAT 04/22/2019 4:30 Results for this AM EDT procedure are i n the results section. MAGNESIUM STAT 04/22/2019 4:30 Results for this AM EDT procedure are i n the results section. HEPATIC FUNCTION Routine 04/22/2019 4:30 Results for this PANEL AM EDT procedure are i n the results section. BASIC METABOLIC PANEL STAT 04/22/2019 4:30 Res ults for this (NON-FASTING) AM EDT procedure are in the results section. POCT GLUCOSE Routine 04/22/2019 4:25 Results for this AM EDT procedure are i n the results section. POCT GLUCOSE Routine 04/21/2019 9:15 Results for this PM EDT procedure are i n the results section. ECHOCARDIOGRAM Routine 04/21/2019 4:25 UGIB (upper Results fo r this COMPLETE PM EDT gastrointestinal bleed) procedure are in Acute blood loss anemia the results section. POCT GLUCOSE Routine 04/21/2019 3:27 Results for this PM EDT procedure are i n the results section. POCT GLUCOSE Routine 04/21/2019 12:13 Results for this PM EDT procedure are i n the results section. US ABDOMEN LIMITED Routine 04/21/2019 11:20 Resul ts for this AM EDT procedure are i n the results section. POCT GLUCOSE Routine 04/21/2019 7:45 Results for this AM EDT procedure are i n the results section. HEMOGRAM STAT 04/21/2019 3:28 Results for this AM EDT procedure are i n the results section. DIFFERENTIAL, STAT 04/21/2019 3:28 Results for this AUTOMATED AM EDT procedure are i n the results section. PROTHROMBIN TIME STAT 04/21/2019 3:28 Results for this AM EDT procedure are i n the results section. FIBRINOGEN Routine 04/21/2019 3:28 Results for this AM EDT procedure are i n the results section. CBC (WITH DIFF) STAT 04/21/2019 3:28 AM EDT PHOSPHORUS STAT 04/21/2019 3:28 Results for this AM EDT procedure are i n the results section. MAGNESIUM STAT 04/21/2019 3:28 Results for this AM EDT procedure are i n the results section. HEPATIC FUNCTION Routine 04/21/2019 3:28 Results for this PANEL AM EDT procedure are i n the results section. BASIC METABOLIC PANEL STAT 04/21/2019 3:28 Res ults for this (NON-FASTING) AM EDT procedure are in the results section. POCT GLUCOSE Routine 04/21/2019 3:19 Results for this AM EDT procedure are i n the results section. POCT GLUCOSE Routine 04/21/2019 12:08 Results for this AM EDT procedure are i n the results section. HEMOGRAM Routine 04/20/2019 8:54 Results for this PM EDT procedure are i n the results section. PROTHROMBIN TIME STAT 04/20/2019 8:54 Results for this PM EDT procedure are i n the results section. FIBRINOGEN STAT 04/20/2019 8:54 Results for this PM EDT procedure are i n the results section. POCT GLUCOSE Routine 04/20/2019 8:52 Results for this PM EDT procedure are i n the results section. POCT GLUCOSE Routine 04/20/2019 3:57 Results for this PM EDT procedure are i n the results section. HEMOGRAM Routine 04/20/2019 2:30 Results for this PM EDT procedure are i n the results section. PROTHROMBIN TIME STAT 04/20/2019 2:30 Results for this PM EDT procedure are i n the results section. FIBRINOGEN STAT 04/20/2019 2:30 Results for this PM EDT procedure are i n the results section. POCT GLUCOSE Routine 04/20/2019 12:04 Results for this PM EDT procedure are i n the results section. SCAN, PERIPHERAL Routine 04/20/2019 10:34 Results for this BLOOD AM EDT procedure are i n the results section. HEMOGRAM Routine 04/20/2019 10:34 Results for this AM EDT procedure are i n the results section. PROTHROMBIN TIME STAT 04/20/2019 10:34 Results for this AM EDT procedure are i n the results section. FIBRINOGEN STAT 04/20/2019 10:34 Results for this AM EDT procedure are i n the results section. AMMONIA Timed 04/20/2019 10:34 Results for this AM EDT procedure are i n the results section. UPPER GI ENDOSCOPY Routine 04/20/2019 9:11 Result s for this AM EDT procedure are i n the results section. POCT GLUCOSE Routine 04/20/2019 8:25 Results for this AM EDT procedure are i n the results section. TRANSFUSE RED BLOOD Routine 04/20/2019 8:08 CELLS AM EDT TRANSFUSE RED BLOOD Routine 04/20/2019 6:43 CELLS AM EDT PREPARE RBC Routine 04/20/2019 6:05 Results for this AM EDT procedure are i n the results section. MASSIVE HEMORRHAGE STAT 04/20/2019 5:50 PANEL AM EDT PROTHROMBIN TIME STAT 04/20/2019 5:50 Results for this AM EDT procedure are i n the results section. FIBRINOGEN STAT 04/20/2019 5:50 Results for this AM EDT procedure are i n the results section. PLATELET COUNT STAT 04/20/2019 5:50 Results fo r this AM EDT procedure are i n the results section. HEMOGLOBIN STAT 04/20/2019 5:50 Results for this AM EDT procedure are i n the results section. HEMATOCRIT STAT 04/20/2019 5:50 Results for this AM EDT procedure are i n the results section. TRANSFUSE RED BLOOD Routine 04/20/2019 4:08 CELLS AM EDT SCAN, PERIPHERAL Routine 04/20/2019 3:50 Results for this BLOOD AM EDT procedure are i n the results section. HEMOGRAM Routine 04/20/2019 3:50 Results for this AM EDT procedure are i n the results section. PREPARE RBC Routine 04/20/2019 3:35 Results for this AM EDT procedure are i n the results section. ABORH RECHECK STATUS STAT 04/20/2019 2:40 Resu lts for this AM EDT procedure are i n the results section. HEMOGRAM STAT 04/20/2019 2:40 Results for this AM EDT procedure are i n the results section. LACTATE, WHOLE BLOOD, STAT 04/20/2019 2:40 Res ults for this SEND TO LAB AM EDT procedure are i n ([facility] [place] the results section. ABO/RH TYPING STAT 04/20/2019 2:40 Results for this AM EDT procedure are i n the results section. PROTHROMBIN TIME STAT 04/20/2019 2:40 Results for this AM EDT procedure are i n the results section. FIBRINOGEN STAT 04/20/2019 2:40 Results for this AM EDT procedure are i n the results section. CBC (WITH DIFF) STAT 04/20/2019 2:40 AM EDT ANTIBODY SCREEN STAT 04/20/2019 2:40 Results f or this AM EDT procedure are i n the results section. TYPE AND SCREEN STAT 04/20/2019 2:40 ([facility] AM EDT PHOSPHORUS STAT 04/20/2019 2:40 Results for this AM EDT procedure are i n the results section. MAGNESIUM STAT 04/20/2019 2:40 Results for this AM EDT procedure are i n the results section. HEPATIC FUNCTION STAT 04/20/2019 2:40 Results for this PANEL AM EDT procedure are i n the results section. BASIC METABOLIC PANEL STAT 04/20/2019 2:40 Res ults for this (NON-FASTING) AM EDT procedure are in the results section. POCT GLUCOSE Routine 04/20/2019 2:35 Results for this AM EDT procedure are i n the results section. EGD, W BAND LIGATION hematemesis OF ESOPHAGEAL/GASTRIC VARICES EGD, UPPER GI hematemesis ENDOSCOPY documented in this encounter Results SCAN DOC: LAB (04/23/2019 12:00 AM EDT) Narrative 04/23/2019 12:00 AM EDT This result has an attachment that is no t available. Ordered by an unspecified provider. Scanning Provider MEDIA MGR SCAN EXT ORDR/RSLT Request For 2nd Read CT Abdomen & Pelvis (04/22/2019 2:39 PM EDT) Anatomical Region Laterality Modality Abdomen, Pelvis SO Specimen (Source) Anatomical Location Collection Method / Collectio n Time Received Time / Laterality Volume Impressions 04/22/2019 3:05 PM EDT 1. ??Cirrhosis with stigmata of portal hypertension characterized by mesenteric congestion, congestive thickening of the gallbladder wall, mild splenomegaly and small varices. 2. ??Focal bulging of the anterosuperior left liver lobe may reflect pronounced cirrhotic nodularity though hepatic mass remains of concern. Correlation with alpha-fetoprotein is suggested and if el evated, dynamic liver MRI recommended. 3. ??Indeterminate hypodense lesion ante rior left interpolar cortex. This may be evaluated at time of liver MRI or sonogr aphic correlation electively. 4. ??Dilated distal duodenum and proxima l jejunum of unknown clinical significance. Thank you for letting us participate in the care of this patient. For questions regarding this report, please contact e number below. ? Electronically signed by: Deepali Morales [facility] ([phone]), at 04/22/2019 3:05 PM Narrative 04/22/2019 3:05 PM EDT EXAMINATION: REQUEST FOR 2ND READ CT ABDOMEN AND PELVIS CLINICAL HISTORY: Re-read of patient's C T A/P; What Modality is the exam? CT Scan; Body Part (please add comments as necessary): Abdomen/Pelvis; I believe a reinterpretation of this exam may alter care of Patient. Yes TECHNIQUE: Helical CT of the chest, abdo men, and pelvis was performed before and after the intravenous administration of contrast. . Omnipaque 350 intravenous contrast and unknown volume was administ ered for this study performed April 19, 2019 at [facility]. COMPARISON: None FINDINGS: The absence of intravenous contrast limi ts the evaluation of solid viscera and vasculature. Chest: Lungs and large airways: Dual noncalcifi ed sub-5 mm left lower lobe pulmonary nodules. No consolidation. No contusion. Pleura: No effusion. Heart/vasculature: Normal size. Trace ph ysiologic pericardial effusion. No central pulmonary emboli. Smooth-walled thoracic aorta. Lymph nodes: No pathologically enlarged hilar nor mediastinal lymph nodes. Mediastinum and tyler: No mediastinal hem atoma. Abdomen/pelvis: Liver: Heterogeneous enhancement. Tiny c yst. Contour nodularity. Focal bulging of the anterosuperior left liver lobe. S ubcentimeter hypodense nodule at the liver dome. Bile ducts: Nondilated. Gallbladder: Gallbladder wall thickening which I suspect is congestive with dependent cholelithiasis. Pancreas: Normal attenuation without colton gadiel dilatation. Spleen: Mild splenomegaly to 13.2 cm wit hout focal lesion. Adrenals: Normal. Kidneys: Indeterminate hypodense lesion anterior left interpolar cortex. Dominant simple right interpolar renal c yst. No collecting system dilation. Urinary Bladder: Normal. Vasculature: Patent intra and extrahepat ic portal vein, superior mesenteric and splenic veins. Small gastrosplenic and g astroesophageal varices. Small recanalized umbilicus vein. Lymph Nodes: Small retroperitoneal and m esenteric lymph nodes. This is not unanticipated in the setting of cirrhosi s. Bowel: Diverticulosis without acuity. No rmal caliber loops of large and small bowel. Dilated distal duodenum and proxi mal jejunum. Peritoneum and mesentery: No ascites. Me senteric and retroperitoneal congestion. Abdominal wall: Normal. Reproductive organs: Normal prostate con tour Osseous structures: Degenerative changes . No acute fracture. Procedure Note Deepali Morales MD - 04/22/2019 EXAMINATION: REQUEST FOR 2ND READ CT AB DOMEN AND PELVIS CLINICAL HISTORY: Re-read of patient's C T A/P; What Modality is the exam? CT Scan; Body Part (please add comments as necessary): Abdomen/Pelvis; I believe a reinterpretation of this exam may alter care of Patient. Yes TECHNIQUE: Helical CT of the chest, abdo men, and pelvis was performed before and after the intravenous administration of contrast. . Omnipaque 350 intravenous contrast and unknown volume was administ ered for this study performed April 19, 2019 at [facility]. COMPARISON: None FINDINGS: The absence of intravenous contrast limi ts the evaluation of solid viscera and vasculature. Chest: Lungs and large airways: Dual noncalcifi ed sub-5 mm left lower lobe pulmonary nodules. No consolidation. No contusion. Pleura: No effusion. Heart/vasculature: Normal size. Trace ph ysiologic pericardial effusion. No central pulmonary emboli. Smooth-walled thoracic aorta. Lymph nodes: No pathologically enlarged hilar nor mediastinal lymph nodes. Mediastinum and tyler: No mediastinal hem atoma. Abdomen/pelvis: Liver: Heterogeneous enhancement. Tiny c yst. Contour nodularity. Focal bulging of the anterosuperior left liver lobe. S ubcentimeter hypodense nodule at the liver dome. Bile ducts: Nondilated. Gallbladder: Gallbladder wall thickening which I suspect is congestive with dependent cholelithiasis. Pancreas: Normal attenuation without colton gadiel dilatation. Spleen: Mild splenomegaly to 13.2 cm wit hout focal lesion. Adrenals: Normal. Kidneys: Indeterminate hypodense lesion anterior left interpolar cortex. Dominant simple right interpolar renal c yst. No collecting system dilation. Urinary Bladder: Normal. Vasculature: Patent intra and extrahepat ic portal vein, superior mesenteric and splenic veins. Small gastrosplenic and g astroesophageal varices. Small recanalized umbilicus vein. Lymph Nodes: Small retroperitoneal and m esenteric lymph nodes. This is not unanticipated in the setting of cirrhosi s. Bowel: Diverticulosis without acuity. No rmal caliber loops of large and small bowel. Dilated distal duodenum and proxi mal jejunum. Peritoneum and mesentery: No ascites. Me senteric and retroperitoneal congestion. Abdominal wall: Normal. Reproductive organs: Normal prostate con tour Osseous structures: Degenerative changes . No acute fracture. IMPRESSION 1. Cirrhosis with stigmata of portal hyp ertension characterized by mesenteric congestion, congestive thickening of the gallbladder wall, mild splenomegaly and small varices. 2. Focal bulging of the anterosuperior l eft liver lobe may reflect pronounced cirrhotic nodularity though hepatic mass remains of concern. Correlation with alpha-fetoprotein is suggested and if el evated, dynamic liver MRI recommended. 3. Indeterminate hypodense lesion anteri or left interpolar cortex. This may be evaluated at time of liver MRI or sonogr aphic correlation electively. 4. Dilated distal duodenum and proximal jejunum of unknown clinical significance. Thank you for letting us participate in the care of this patient. For questions regarding this report, please contact e number below. Electronically signed by: Deepali Morales [facility] ([phone]), at 04/22/2019 3:05 PM Ratna Mcclain MD IMG OUTSIDE INTERPRETATION O RDERABLES POCT Glucose (04/22/2019 11:37 AM EDT) athologist Signature POC Glucose 96 65 - 199 [facility] Comment: Supplemental ranges: <140 mg/dL before meals <180 mg/dL all other times of the day Specimen Anatomical Collection Method Collection Time Receive d Time (Source) Location / / Volume Laterality Blood specimen 04/22/2019 11:37 9 (specimen) AM EDT 11:37 AM EDT Ratna Mcclain MD POINT OF CARE TEST ORDERABLE S Performing Organization Address City/[facility]/ZIP Code Phon e Number [address] POCT Glucose (04/22/2019 8:22 AM EDT) athologist Signature POC Glucose 90 65 - 199 [facility] Comment: Supplemental ranges: <140 mg/dL before meals <180 mg/dL all other times of the day Specimen Anatomical Collection Method Collection Time Receive d Time (Source) Location / / Volume Laterality Blood specimen 04/22/2019 8:22 AM 019 8:22 (specimen) EDT AM EDT Ratna Mcclain MD POINT OF CARE TEST ORDERABLE S Performing Organization Address City/[facility]/ZIP Code Phon e Number [address] Differential, Automated (04/22/2019 4:30 AM EDT) athologist Signature Neutrophils % 66.8 % [facility] Neutr Abs (ANC) 4.42 1.70 - [facility] 6.10 [facility] x10(3)/[facility] LABORATORY Lymphocytes % 20.4 % [facility] Lymphocytes Abs 1.4 0.9 - 3.2 [facility] x10(3)/[facility] LABORATORY Monocytes % 7.9 % [facility] Monocyte Abs 0.5 0.3 - 0.9 [facility] x10(3)/[facility] LABORATORY Eosinophils % 3.2 % [facility] Eosinophils Abs 0.2 0.0 - 0.4 [facility] x10(3)/[facility] LABORATORY Basophils % 1.1 % [facility] Basophils Abs 0.1 0.0 - 0.1 [facility] x10(3)/[facility] LABORATORY Immature Gran % 0.60 % [facility] Comment: Immature granulocytes(IG's)percentage an d absolute count will include metamyelocytes, myelocytes, and promyelo cytes. Blood smears from CBCs yielding IG's will be scanned manually for concor dance. If this scan disagrees with the automated IG or if promyelocytes are not ed, a manual differential will be performed. Haily Gran Abs 0.04 0.00 - 0.04 x10(3)/[facility] MAR Y [facility]ORY Specimen Anatomical Collection Method Collection Time Receive d Time (Source) Location / / Volume Laterality Blood specimen 04/22/2019 4:30 AM 019 4:36 (specimen) EDT AM EDT Resulting Agency Comment Spec In Lab Josh Mao MD HEMATOLOGY ORDERABLES Performing Organization Address City/State/[place] [address] (ABNORMAL) Hemogram (04/22/2019 4:30 AM EDT) Analysis Performed At Patho logist Time Signature WBC 6.6 4.0 - 9.5 [facility] x10(3)/[facility] LABORATORY RBC 3.19 (L) 4.58 - [facility] 5.54 [facility] x10(6)/[facility] LABORATORY Hemoglobin 7.7 (L) 13.7 - [facility] 16.5 gm/dL [facility] Hematocrit 25.0 (L) 40.5 - [facility] 48.5 % [facility] MCV 78.4 (L) 82.9 - [facility] 93.1 [facility] LABORATORY MCH 24.1 (L) 27.5 - [facility] 32.1 pg [facility] MCHC 30.8 (L) 32.0 - [facility] 35.7 gm/dL [facility] Platelets 97 (L) 145 - 357 [facility] LABORATORY RDWSD 58.3 (H) 36.0 - [facility] 45.0 [facility] LABORATORY RDWCV 21.3 (H) 11.4 - [facility] 13.8 % [facility] MPV 10.9 7.6 - 12.9 [facility] LABORATORY nRBC % Auto 0.0 % [facility] nRBC Abs Auto 0.000 0.000 - [facility] 0.000 [facility] x10(3)/[facility] LABORATORY Specimen Anatomical Collection Method Collection Time Receive d Time (Source) Location / / Volume Laterality Blood specimen 04/22/2019 4:30 AM 019 4:36 (specimen) EDT AM EDT Resulting Agency Comment Spec In Lab Josh Mao MD HEMATOLOGY ORDERABLES Performing Organization Address City/State/[place] [address] (ABNORMAL) Hepatic Function Panel (04/22/2019 4:30 AM EDT) P athologist Signature Total Protein 5.5 (L) 6.1 - 8.0 [facility] gm/dL [facility] Albumin 2.2 (L) 3.2 - 5.2 [facility] gm/dL [facility] AST 67 (H) 0 - 39 [facility] unit/L [facility] ALT 29 0 - 55 [facility] unit/L [facility] Alk Phos 56 40 - 130 [facility] unit/L [facility] Total 1.2 0.2 - 1.3 [facility] Bilirubin mg/dL [facility] Bili, Direct 0.7 (H) 0.0 - 0.3 [facility] mg/dL [facility] Specimen Anatomical Collection Method Collection Time Receive d Time (Source) Location / / Volume Laterality Blood specimen 04/22/2019 4:30 AM 019 4:36 (specimen) EDT AM EDT Resulting Agency Comment Spec In Lab Bam Schrader MD CHEMISTRY ORDERABLES Performing Organization Address City/[facility]/ZIP Code Phon e Number [address] (ABNORMAL) Phosphorus (04/22/2019 4:30 AM EDT) athologist Signature Phosphorus 2.1 (L) 2.5 - 4.5 [facility] mg/dL [facility] Specimen Anatomical Collection Method Collection Time Receive d Time (Source) Location / / Volume Laterality Blood specimen 04/22/2019 4:30 AM 019 4:36 (specimen) EDT AM EDT Resulting Agency Comment Spec In Lab Bam Schrader MD CHEMISTRY ORDERABLES Performing Organization Address City/[facility]/ZIP Code Phon e Number [address] Magnesium (04/22/2019 4:30 AM EDT) athologist Signature Magnesium 0.79 0.69 - 1.07 [facility] mmol/L [facility] Specimen Anatomical Collection Method Collection Time Receive d Time (Source) Location / / Volume Laterality Blood specimen 04/22/2019 4:30 AM 019 4:36 (specimen) EDT AM EDT Resulting Agency Comment Spec In Lab Bam Schrader MD CHEMISTRY ORDERABLES Performing Organization Address City/[facility]/ZIP [place] [address] (ABNORMAL) Basic Metabolic Panel (non-fasting) (04/22/2019 4:30 AM EDT) athologist Signature Glucose Lvl 96 65 - 199 [facility] mg/dL [facility] Comment: Diabetes: >=200 mg/dL plus symp toms BUN 15 10 - 20 mg/dL [facility] Creatinine 0.87 0.80 - 1.50 mg/dL [facility] Sodium 138 135 - 145 mmol/L [facility] Potassium 4.1 3.5 - 5.0 mmol/L [facility] Comment: Please note: ??Patients with WBC >100,00 0 may have falsely elevated Potassium levels. ??For accurate Potassium quantif ication in these patients send serum separator tube (gold top) for subsequent determinations. ??Contact the Clinical Chemistry Laboratory if there are any qu estions. Chloride 110 (H) 98 - 107 mmol/L [facility] CO2 23 22 - 31 mmol/L [facility] Anion Gap 5 5 - 15 mmol/L [facility] Calcium 7.0 (L) 8.5 - 10.5 mg/dL [facility] Estimated GFR 91 >=60 mL/min/1.73 m?? [facility] Comment: The eGFR was calculated using the CKD-EP I equation. As with all creatinine based estimates of kidney function, eGFR values calculated with the CKD-EPI equation are not accurate in patients wi th acute kidney failure, extremes of body mass or the acutely ill. http://[employer] beat/[facility] eGFR 106 >=60 mL/min/1.73 m?? [facility] Comment: The eGFR was calculated using the CKD-EP I equation. As with all creatinine based estimates of kidney function, eGFR values calculated with the CKD-EPI equation are not accurate in patients wi th acute kidney failure, extremes of body mass or the acutely ill. http://[employer]/[facility] Specimen Anatomical Collection Method Collection Time Receive d Time (Source) Location / / Volume Laterality Blood specimen 04/22/2019 4:30 AM 019 4:36 (specimen) EDT AM EDT Resulting Agency Comment Spec In Lab Bam Schrader MD CHEMISTRY ORDERABLES Performing Organization Address City/State/[place] [address] (ABNORMAL) Hepatitis C Antibody (04/22/2019 4:30 AM EDT) Patholo gist Method Time Signature Hepatitis C Positive (A) Negative [facility] LABORATORY Specimen Anatomical Collection Method Collection Time Receive d Time (Source) Location / / Volume Laterality Blood specimen 04/22/2019 4:30 AM 019 4:36 (specimen) EDT AM EDT Resulting Agency Comment Spec In Lab Ratna Mcclain MD IMMUNOLOGY ORDERABLES Performing Organization Address City/[facility]/ZIP Code Phon e Number [address] Hepatitis B Surface Antigen (04/22/2019 4:30 AM EDT) Analysis Performed At Patho logist Time Signature HepB Surface Negative Negative [facility] LABORATORY Specimen Anatomical Collection Method Collection Time Receive d Time (Source) Location / / Volume Laterality Blood specimen 04/22/2019 4:30 AM 019 4:36 (specimen) EDT AM EDT Resulting Agency Comment Spec In Lab Ratna Mcclain MD CHEMISTRY ORDERABLES Performing Organization Address City/[facility]/ZIP Code Phon e Number [address] Hepatitis B Surface Antibody (04/22/2019 4:30 AM EDT) P athologist Signature HepB Surface <3.5 IU/L [facility] LABORATORY Comment: HepB Surface Ab Quant: Unvaccinated: < 8.5 IU/L Vaccinated: > 11.5 IU/L HepB Surface Ab Negative [facility] Comment: Patient is presumed to be not vaccinated or immune to HBV infection. Expected Results: Vaccinated: Positive Unvaccinated: Negative Specimen Anatomical Collection Method Collection Time Receive d Time (Source) Location / / Volume Laterality Blood specimen 04/22/2019 4:30 AM 019 4:36 (specimen) EDT AM EDT Resulting Agency Comment Spec In Lab Ratna Mcclain MD IMMUNOLOGY ORDERABLES Performing Organization Address City/[facility]/ZIP Code Phon e Number [address] Hepatitis B Core Antibody, IgM (04/22/2019 4:30 AM EDT) Analysis Performed At Patho logist Time Signature Hep B Core IgM Negative Negative [facility] Specimen Anatomical Collection Method Collection Time Receive d Time (Source) Location / / Volume Laterality Blood specimen 04/22/2019 4:30 AM 019 4:36 (specimen) EDT AM EDT Resulting Agency Comment Spec In Lab Ratna Mcclain MD IMMUNOLOGY ORDERABLES Performing Organization Address City/[facility]/ZIP [place] [address] Hepatitis B Core Antibody, Total (04/22/2019 4:30 AM EDT) Analysis Performed At Patho logist Time Signature Hep B Core Ab Negative Negative [facility] Specimen Anatomical Collection Method Collection Time Receive d Time (Source) Location / / Volume Laterality Blood specimen 04/22/2019 4:30 AM 019 4:36 (specimen) EDT AM EDT Resulting Agency Comment Spec In Lab Ratna Mcclain MD CHEMISTRY ORDERABLES Performing Organization Address City/[facility]/ZIP Code Phon e Number [address] POCT Glucose (04/22/2019 4:25 AM EDT) athologist Signature POC Glucose 97 65 - 199 [facility] mg/dL [facility] Comment: Supplemental ranges: <140 mg/dL before meals <180 mg/dL all other times of the day Specimen Anatomical Collection Method Collection Time Receive d Time (Source) Location / / Volume Laterality Blood specimen 04/22/2019 4:25 AM 019 4:25 (specimen) EDT AM EDT Ratna Mcclain MD POINT OF CARE TEST ORDERABLE S Performing Organization Address City/[facility]/ZIP Code Phon e Number [address] POCT Glucose (04/21/2019 9:15 PM EDT) athologist Signature POC Glucose 109 65 - 199 [facility] mg/dL [facility] Comment: Supplemental ranges: <140 mg/dL before meals <180 mg/dL all other times of the day Specimen Anatomical Collection Method Collection Time Receive d Time (Source) Location / / Volume Laterality Blood specimen 04/21/2019 9:15 PM 019 9:15 (specimen) EDT PM EDT Ratna Mcclain MD POINT OF CARE TEST ORDERABLE S Performing Organization Address City/State/[place] [address] ECHOCARDIOGRAM COMPLETE (04/21/2019 4:25 PM EDT) P athologist Signature EF 63 [facility] Anatomical Region Laterality Modality Other Specimen (Source) Anatomical Location Collection Method / Collectio n Time Received Time / Laterality Volume 04/21/2019 Narrative 04/21/2019 4:43 PM EDT Procedure: ?Transthoracic Echocardiogram Patient: ?FAINA BLACKBURN P ? (Age): 1955(64y) Med Rec#: ? [id number] ?Sex: ?M ? [facility] Loc[facility] ? [facility] ?Ht / Wt: ??176(cm)/92(kg) Pt. Loc: ?ICU ? BSA: ?2.08 Study Date: ?? 04/21/2019 ?Pt. Type: Inpatient Tape: ? Referring: KAVITA Reading: Seng Meier ([id number]) Driller Brake Lining: Rebekah Katz Diagnosis: *Gastrointestinal hemorrhage, unspecifi ed (K92.2) *Acute posthemorrhagic anemia (D62) BP: ? 104/82 SUMMARY: 1. The left ventricular chamber size is normal. ??There is normal global left ventricular systolic function. ??Th e quantitative left ventricular ejection fraction by biplane Ernst's m ethod is 63%. ??There are no left ventricular segmental wall motion abnorm alities. 2. Right ventricular chamber size, wall thickness, and systolic function are within normal limits. 3. The left atrium is severely dilated. 4. No significant valvular abnormalities . 5. Other details as noted below. Findings ? : Left Ventricle: ? The left ventricul ar chamber size is normal. ?There is mild septal hypertrophy o f the left ventricle. ?There is no evidence of LVOT obstr uction. ?There is normal global left ventri cular systolic function. ?The quantitative left ventricular ejection fraction by biplane Ernst's method is 63%. ?There are no left ventricular segm ental wall motion abnormalities. ?Doppler assessment is consistent w ith normal left sided filling pressure. Left Atrium: ? The left atrium is se verely dilated.(72 ml/m2) Right Ventricle: ? Right ventricular chamber size, wall thickness, and systolic function are within normal limi ts. ?The estimated pulmonary artery sys tolic pressure is 21 mmHg. ?The estimated right atrial pressur e is 3 mmHg. Right Atrium: ? The right atrium greg ears normal. Aortic Valve: ? The aortic valve is tricuspid. ?The aortic valve leaflets are mild ly thickened. ?Systolic excursion of the aortic v alve is normal. ?There is no evidence of aortic dory ve stenosis. ?There is a trace of aortic regurgi tation present. Mitral Valve: ? The mitral valve greg ears normal in structure and function. ?There is trace mitral regurgitatio n present. Tricuspid Valve: ? The tricuspid dory ve appears normal in structure and function. ?There is mild (1+/4+) tricuspid re gurgitation present. Pulmonic Valve: ? The pulmonic valve appears normal in structure and function. ?There is trace pulmonic regurgitat ion present. Pericardium: ? The pericardium appea rs normal and there is no evidence of a pericardial effusion. Aorta: ? There is mild dilatation of the aortic root. ?There is mild dilatation of the as cending aorta. Pulmonary Artery: ? The main pulmona ry artery appears normal. Venous: ? The inferior vena cava greg ears normal in size. ?There is a greater than 50% respir atory change in the inferior vena cava dimension. Misc: ? Two-dimensional echo, spectr al Doppler and color Doppler performed. Chambers 2D ?Value ?Units (Range) ? IVSd (2D) ? 1.1 ?cm ? LVPWd (2D) ?0.7 ?cm ? IVS:LVPW ratio (2D) 1.5 ?ratio ? RWT (2D) ?0.4 ?ratio ? RWT PW (2D) ? 0.3 ?ratio ? LVIDd (2D) ?4.9 ?cm ? LVIDs (2D) ?2.7 ?cm ? LVIDd (2D) index ?2.4 ?cm/m2 ? LVIDs (2D) index ?1.3 ?cm/m2 ? LV FS (2D) ?46 ? % ? EF Teichholz (2D) ?? 77 ? % ? Ao root diameter (2D3.8 ?cm (2.1 - 3.6) ? Ascending Ao ?3.7 ?cm (2 - 3.5) ? Volumes/Mass ?Value ?Units (Range) ? LA Area 4 CH ?33 ? cm2 (<21) ? LA ESV BP (A/L) inde72 ? ml/m2 ? RA AREA 4CH ? 19.1 ? cm2 ? LV ESV SP 4CH (MOD) 63.3 ? ml ? LV ESV SP 2CH (MOD) 53.1 ? ml ? LV EDV BP ? 160.7 ?ml ? LV ESV BP ? 59 ? ml ? LV EDV BP index ? 77.3 ? ml/m2 ? LV ESV BP index ? 28.4 ? ml/m2 ? BP EF (MOD) ? 63 ? % ? LV mass (2D) ?151.8 ?g ? LV mass (2D) index ??73 ? g/m2 ? Diastolic/Systolic Function ?Value ?Units (Range) ? MV E-wave Vmax ?1.1 ?m/sec ? MV deceleration mijc176.5 ? msec ? MV A-wave Vmax ?0.8 ?m/sec ? MV E:A ratio ?1.3 ?ratio ? LV septal e' Vmax ?? 0.1 ?m/sec ? LV lateral e' Vmax ??0.1 ?m/sec ? LV average e' Vmax ??0.1 ?m/sec ? LV E:e' septal ratio9.1 ?ratio ? LV E:e' lateral rati8.4 ?ratio ? LV average E:e' rati9.1 ?ratio ? Tricuspid Valve ?Value ?Units (Range) ? TR Vmax ? 2.1 ?m/sec ? TR peak gradient ?17.8 ? mmHg ? RAP ? 3 ?mmHg ? RVSP ?21 ? mmHg ? Wall Motion: Segment Name ?Rest ? Base-Anteroseptal ?? Normal ? Base-Anterior ? Normal ? Base-Anterolateral ??Normal ? Base-Posterolateral Normal ? Base-Inferior ? Normal ? Base-Inferoseptal ?? Normal ? Mid-Anteroseptal ?Normal ? Mid-Anterior ?Normal ? Mid-Anterolateral ?? Normal ? Mid-Posterolateral ??Normal ? Mid-Inferior ?Normal ? Mid-Inferoseptal ?Normal ? [place]-Septal ? Normal ? [place]-Anterior ? Normal ? [place]-Lateral ?Normal ? [place]-Inferior ? Normal ? [place]-Tip ?Normal ? This report has been electronically sign ed by: _ Seng Meier MD ? 04/21/2019 16:42:18 Images reviewed and interpretation verif ied [facility] Procedure Note Seng Meier MD - 04/21/2019Forma tting of this note might be different from the original. Procedure: Transthoracic Echocardiogram Patient: FAINA Mejia (Age): [birth year](64y) Med Rec#: [id number] Sex: M [place] Loc[place] [facility] Ht / Wt: 176(cm)/92(kg) Pt. Loc: ICU BSA: 2.08 Study Date: 04/21/2019 Pt. Type: Inyase nt Tape: Referring: KAVITA Reading: Seng Meier ([id number]) Driller Brake Lining: Rebekah Katz Diagnosis: *Gastrointestinal hemorrhage, unspecifi ed (K92.2) *Acute posthemorrhagic anemia (D62) BP: 104/82 SUMMARY: 1. The left ventricular chamber size is normal. There is normal global left ventricular systolic function. The quantitative left ventricular ejection fraction by biplane Ernst's m ethod is 63%. There are no left ventricular segmental wall motion abnorm alities. 2. Right ventricular chamber size, wall thickness, and systolic function are within normal limits. 3. The left atrium is severely dilated. 4. No significant valvular abnormalities . 5. Other details as noted below. Findings : Left Ventricle: The left ventricular debra mber size is normal. There is mild septal hypertrophy of the left ventricle. There is no evidence of LVOT obstructio n. There is normal global left ventricular systolic function. The quantitative left ventricular eject ion fraction by biplane Ernst's method is 63%. There are no left ventricular segmental wall motion abnormalities. Doppler assessment is consistent with n ormal left sided filling pressure. Left Atrium: The left atrium is severely dilated.(72 ml/m2) Right Ventricle: Right ventricular chamb er size, wall thickness, and systolic function are within normal limi ts. The estimated pulmonary artery systolic pressure is 21 mmHg. The estimated right atrial pressure is 3 mmHg. Right Atrium: The right atrium appears n ormal. Aortic Valve: The aortic valve is tricus pid. The aortic valve leaflets are mildly th ickened. Systolic excursion of the aortic valve is normal. There is no evidence of aortic valve st enosis. There is a trace of aortic regurgitatio n present. Mitral Valve: The mitral valve appears n ormal in structure and function. There is trace mitral regurgitation pre sent. Tricuspid Valve: The tricuspid valve greg ears normal in structure and function. There is mild (1+/4+) tricuspid regurgi tation present. Pulmonic Valve: The pulmonic valve appea rs normal in structure and function. There is trace pulmonic regurgitation p resent. Pericardium: The pericardium appears nor mal and there is no evidence of a pericardial effusion. Aorta: There is mild dilatation of the a ortic root. There is mild dilatation of the ascendi ng aorta. Pulmonary Artery: The main pulmonary art jenni appears normal. Venous: The inferior vena cava appears n ormal in size. There is a greater than 50% respiratory change in the inferior vena cava dimension. Misc: Two-dimensional echo, spectral Dop pler and color Doppler performed. Chambers 2D Value Units (Range) IVSd (2D) 1.1 cm LVPWd (2D) 0.7 cm IVS:LVPW ratio (2D) 1.5 ratio RWT (2D) 0.4 ratio RWT PW (2D) 0.3 ratio LVIDd (2D) 4.9 cm LVIDs (2D) 2.7 cm LVIDd (2D) index 2.4 cm/m2 LVIDs (2D) index 1.3 cm/m2 LV FS (2D) 46 % EF Teichholz (2D) 77 % Ao root diameter (2D3.8 cm (2.1 - 3.6) Ascending Ao 3.7 cm (2 - 3.5) Volumes/Mass Value Units (Range) LA Area 4 CH 33 cm2 (<21) LA ESV BP (A/L) inde72 ml/m2 RA AREA 4CH 19.1 cm2 LV ESV SP 4CH (MOD) 63.3 ml LV ESV SP 2CH (MOD) 53.1 ml LV EDV BP 160.7 ml LV ESV BP 59 ml LV EDV BP index 77.3 ml/m2 LV ESV BP index 28.4 ml/m2 BP EF (MOD) 63 % LV mass (2D) 151.8 g LV mass (2D) index 73 g/m2 Diastolic/Systolic Function Value Units (Range) MV E-wave Vmax 1.1 m/sec MV deceleration ubma295.5 msec MV A-wave Vmax 0.8 m/sec MV E:A ratio 1.3 ratio LV septal e' Vmax 0.1 m/sec LV lateral e' Vmax 0.1 m/sec LV average e' Vmax 0.1 m/sec LV E:e' septal ratio9.1 ratio LV E:e' lateral rati8.4 ratio LV average E:e' rati9.1 ratio Tricuspid Valve Value Units (Range) TR Vmax 2.1 m/sec TR peak gradient 17.8 mmHg RAP 3 mmHg RVSP 21 mmHg Wall Motion: Segment Name Rest Base-Anteroseptal Normal Base-Anterior Normal Base-Anterolateral Normal Base-Posterolateral Normal Base-Inferior Normal Base-Inferoseptal Normal Mid-Anteroseptal Normal Mid-Anterior Normal Mid-Anterolateral Normal Mid-Posterolateral Normal Mid-Inferior Normal Mid-Inferoseptal Normal [place]-Septal Normal [place]-Anterior Normal [place]-Lateral Normal [place]-Inferior Normal [place]-Tip Normal This report has been electronically sign ed by: _ Seng Meier MD 04/21/2019 16:42: 18 Images reviewed and interpretation [place] d[facility] Ratna Mcclain MD ECHO ORDERABLES POCT Glucose (04/21/2019 3:27 PM EDT) athologist Signature POC Glucose 126 65 - 199 [facility] mg/dL [facility] Comment: Supplemental ranges: <140 mg/dL before meals <180 mg/dL all other times of the day Specimen Anatomical Collection Method Collection Time Receive d Time (Source) Location / / Volume Laterality Blood specimen 04/21/2019 3:27 PM 019 3:27 (specimen) EDT PM EDT Ratna Mcclain MD POINT OF CARE TEST ORDERABLE S Performing Organization Address City/State/[place] [address] POCT Glucose (04/21/2019 12:13 PM EDT) athologist Signature POC Glucose 96 65 - 199 [facility] mg/dL [facility] Comment: Supplemental ranges: <140 mg/dL before meals <180 mg/dL all other times of the day Specimen Anatomical Collection Method Collection Time Receive d Time (Source) Location / / Volume Laterality Blood specimen 04/21/2019 12:13 9 (specimen) PM EDT 12:13 PM EDT Ratna Mcclain MD POINT OF CARE TEST ORDERABLE S Performing Organization Address City/State/ZIP [place] [address] US Abdomen Limited (04/21/2019 11:20 AM EDT) Anatomical Region Laterality Modality Abdomen Ultrasound Specimen (Source) Anatomical Collection Method Collection Time Re ceived Time Location / / Volume Laterality 04/21/2019 11:19 AM EDT Impressions 04/21/2019 11:32 AM EDT Limited abdominal ultrasound. Ascites i s present. Small amount within the pelvis, LUQ, RUQ, right lower quadrant and left lower quadrant area Thank you for letting us participate in the care of this patient. For questions regarding this report, please contact t jazlyn number below. Electronically signed by: Nidhi harrell MD, Radiology [place] ([phone]), at 11:26 AM ?Nidhi Batres, Staff Physician Electronically Signed Final Report ?? 11:32 am Narrative 04/21/2019 11:32 AM EDT Abdominal ? (Signed Final 04/21/2019 11:32 am) PATIENT INFO: ID #: ? [id number] ?: ??[birth year] (64 yrs) Name: ? BENJAMÍN HENRY ?Visit Date: 04/21/2019 11:19 am PERFORMED BY: Performed By: ? Syd Garrett RDMS Attending: ?Medardo MALDONADO, Shankar Koehler Referred By: ?RATNA MCCLAIN Location: ? [place] SERVICE(S) PROVIDED: ??UABDLIM - Abdominal Limited Survey Si ngle ? [id number] ??Organ or Quadrant - [id number] INDICATIONS: ??64yo with known ETOH abuse admitted w ith ??variceal hemorrhage., ? ascities per team FLUID COLLECTIONS: Ascites present. Procedure Note Nidhi Batres MD - 04/21/2019Forma tting of this note might be different from the original. Abdominal (Signed Final 04/21/2019 11:3 2 am) PATIENT INFO: ID #: [id number] : 55 (64 y rs) Name: BENJAMÍN HENRY Visit Date: 019 11:19 am PERFORMED BY: Performed By: Syd Garrett RDMS Attending: Nidhi Batres MD Referred By: RATNA MCCLAIN Location: [place] SERVICE(S) PROVIDED: UABDLIM - Abdominal Limited Survey [place] [id number] Organ or Quadrant - [id number] INDICATIONS: 64yo with known ETOH abuse admitted wit h variceal hemorrhage., ? ascities per te am FLUID COLLECTIONS: Ascites present. IMPRESSION Limited abdominal ultrasound. Ascites i s present. Small amount within the pelvis, LUQ, RUQ, right lower quadrant and left lower quadrant area Thank you for letting us participate in the care of this patient. For questions regarding this report, please contact t he number below. Electronically signed by: Nidhi harrell MD, Radiology [place] ([phone]), at 11:26 AM Nidhi Batres, Staff Physician Electronically Signed Final Report 04/21 11:32 am Ratna Mcclain MD IMG US GEN ORDERABLES POCT Glucose (04/21/2019 7:45 AM EDT) athologist Signature POC Glucose 110 65 - 199 [facility] mg/dL [facility] Comment: Supplemental ranges: <140 mg/dL before meals <180 mg/dL all other times of the day Specimen Anatomical Collection Method Collection Time Receive d Time (Source) Location / / Volume Laterality Blood specimen 04/21/2019 7:45 AM 019 7:45 (specimen) EDT AM EDT Ratna Mcclain MD POINT OF CARE TEST ORDERABLE S Performing Organization Address City/State/[place] [address] (ABNORMAL) Differential, Automated (04/21/2019 3:28 AM EDT) [facility] gist Method Time Signature Neutrophils % 76.3 % [facility] Neutr Abs (ANC) 6.24 (H) 1.70 - [facility] 6.10 [facility] x10(3)/[facility] LABORATORY Lymphocytes % 14.3 % [facility] Lymphocytes Abs 1.2 0.9 - 3.2 [facility] x10(3)/[facility] LABORATORY Monocytes % 8.1 % [facility] Monocyte Abs 0.7 0.3 - 0.9 [facility] x10(3)/[facility] LABORATORY Eosinophils % 0.4 % [facility] Eosinophils Abs 0.0 0.0 - 0.4 [facility] x10(3)/[facility] LABORATORY Basophils % 0.4 % [facility] Basophils Abs 0.0 0.0 - 0.1 [facility] x10(3)/[facility] LABORATORY Immature Gran % 0.50 % [facility] Comment: Immature granulocytes(IG's)percentage an d absolute count will include metamyelocytes, myelocytes, and promyelo cytes. Blood smears from CBCs yielding IG's will be scanned manually for concor dance. If this scan disagrees with the automated IG or if promyelocytes are not ed, a manual differential will be performed. Haily Gran Abs 0.04 0.00 - 0.04 x10(3)/[facility] LABORATORY Specimen Anatomical Collection Method Collection Time Receive d Time (Source) Location / / Volume Laterality Blood specimen 04/21/2019 3:28 AM 019 3:39 (specimen) EDT AM EDT Resulting Agency Comment Spec In Lab Josh Mao MD HEMATOLOGY ORDERABLES Performing Organization Address City/State/[place] [address] (ABNORMAL) Hemogram (04/21/2019 3:28 AM EDT) [facility] gist Method Time Signature WBC 8.2 4.0 - 9.5 [facility] x10(3)/[facility] LABORATORY RBC 3.44 (L) 4.58 - [facility] 5.54 [facility] x10(6)/[facility] LABORATORY Hemoglobin 8.1 (L) 13.7 - [facility] 16.5 gm/dL [facility] Hematocrit 26.0 (L) 40.5 - [facility] % [facility] MCV 75.6 (L) 82.9 - [facility] 93.1 fL [facility] MCH 23.5 (L) 27.5 - [facility] MCHC 31.2 (L) 32.0 - [facility] 35.7 gm/dL [facility] Platelets 94 (L) 145 - 357 [facility] x10(3)/[facility] LABORATORY RDWSD 52.6 (H) 36.0 - [facility] 45.0 [facility] LABORATORY RDWCV 20.0 (H) 11.4 - [facility] 13.8 % [facility] MPV 10.6 7.6 - 12.9 [facility] LABORATORY nRBC % Auto 0.2 % [facility] nRBC Abs Auto 0.020 (H) 0.000 - [facility] 0.000 [facility] x10(3)/[facility] LABORATORY Specimen Anatomical Collection Method Collection Time Receive d Time (Source) Location / / Volume Laterality Blood specimen 04/21/2019 3:28 AM 019 3:39 (specimen) EDT AM EDT Resulting Agency Comment Spec In Lab Josh Mao MD HEMATOLOGY ORDERABLES Performing Organization Address City/State/[place] [address] (ABNORMAL) Hepatic Function Panel (04/21/2019 3:28 AM EDT) P athologist Signature Total Protein 5.8 (L) 6.1 - 8.0 [facility] gm/dL [facility] Albumin 2.5 (L) 3.2 - 5.2 [facility] gm/dL [facility] AST 52 (H) 0 - 39 [facility] unit/L [facility] ALT 27 0 - 55 [facility] unit/L [facility] Alk Phos 59 40 - 130 [facility] unit/L [facility] Total 2.1 (H) 0.2 - 1.3 [facility] Bilirubin mg/dL [facility] Bili, Direct 1.2 (H) 0.0 - 0.3 [facility] mg/dL [facility] Specimen Anatomical Collection Method Collection Time Receive d Time (Source) Location / / Volume Laterality Blood specimen 04/21/2019 3:28 AM 019 3:39 (specimen) EDT AM EDT Resulting Agency Comment Spec In Lab Bam Schrader MD CHEMISTRY ORDERABLES Performing Organization Address City/[facility]/ZIP Code Phon e Number [address] (ABNORMAL) Phosphorus (04/21/2019 3:28 AM EDT) athologist Signature Phosphorus 1.9 (L) 2.5 - 4.5 [facility] mg/dL [facility] Specimen Anatomical Collection Method Collection Time Receive d Time (Source) Location / / Volume Laterality Blood specimen 04/21/2019 3:28 AM 019 3:39 (specimen) EDT AM EDT Resulting Agency Comment Spec In Lab Bam Schrader MD CHEMISTRY ORDERABLES Performing Organization Address City/[facility]/ZIP Code Phon e Number [address] Magnesium (04/21/2019 3:28 AM EDT) athologist Signature Magnesium 0.88 0.69 - 1.07 [facility] mmol/L [facility] Specimen Anatomical Collection Method Collection Time Receive d Time (Source) Location / / Volume Laterality Blood specimen 04/21/2019 3:28 AM 019 3:39 (specimen) EDT AM EDT Resulting Agency Comment Spec In Lab Bam Schrader MD CHEMISTRY ORDERABLES Performing Organization Address City/[facility]/ZIP [place] [address] (ABNORMAL) Basic Metabolic Panel (non-fasting) (04/21/2019 3:28 AM EDT) P athologist Signature Glucose Lvl 96 65 - 199 [facility] mg/dL [facility] Comment: Diabetes: >=200 mg/dL plus symp toms BUN 15 10 - 20 mg/dL [facility] LABORATORY Creatinine 0.71 (L) 0.80 - 1.50 mg/dL [facility] LABORATORY Sodium 137 135 - 145 mmol/L [facility]ORY Potassium 4.0 3.5 - 5.0 mmol/L [facility] Comment: Please note: ??Patients with WBC >100,00 0 may have falsely elevated Potassium levels. ??For accurate Potassium quantif ication in these patients send serum separator tube (gold top) for subsequent determinations. ??Contact the Clinical Chemistry Laboratory if there are any qu estions. Chloride 108 (H) 98 - 107 mmol/L [facility] CO2 23 22 - 31 mmol/L [facility] Anion Gap 6 5 - 15 mmol/L [facility] Calcium 7.0 (L) 8.5 - 10.5 mg/dL [facility] Estimated GFR 99 >=60 mL/min/1.73 m?? [facility] Comment: The eGFR was calculated using the CKD-EP I equation. As with all creatinine based estimates of kidney function, eGFR values calculated with the CKD-EPI equation are not accurate in patients wi th acute kidney failure, extremes of body mass or the acutely ill. http://[employer] car easily [email or web address]/[facility]kf eGFR 115 >=60 mL/min/1.73 m?? [facility] Comment: The eGFR was calculated using the CKD-EP I equation. As with all creatinine based estimates of kidney function, eGFR values calculated with the CKD-EPI equation are not accurate in patients wi th acute kidney failure, extremes of body mass or the acutely ill. http://[employer] [email or web address]/[facility] Specimen Anatomical Collection Method Collection Time Receive d Time (Source) Location / / Volume Laterality Blood specimen 04/21/2019 3:28 AM 019 3:39 (specimen) EDT AM EDT Resulting Agency Comment Spec In Lab Bam Schrader MD CHEMISTRY ORDERABLES Performing Organization Address City/State/[place] [address] (ABNORMAL) Prothrombin Time (04/21/2019 3:28 AM EDT) P athologist Signature PT 18.9 (H) 9.4 - 12.5 [facility] LABORATORY INR 1.6 [facility] Comment: An INR <2.0 indicates [...] Location / / Volume Laterality Blood specimen 04/21/2019 3:28 AM 019 3:39 (specimen) EDT AM EDT Resulting Agency Comment Spec In Lab Ratna Mcclain MD HEMATOLOGY ORDERABLES Performing Organization Address City/[facility]/ZIP [place] [address] (ABNORMAL) Fibrinogen (04/21/2019 3:28 AM EDT) P athologist Signature Fibrinogen 120 (L) 200 - 393 [facility] mg/dL [facility] Comment: A fibrinogen level >100 mg/dL is adequat e for hemostasis in most patients without underlying bleeding disorders. Specimen Anatomical Collection Method Collection Time Receive d Time (Source) Location / / Volume Laterality Blood specimen 04/21/2019 3:28 AM 019 3:39 (specimen) EDT AM EDT Resulting Agency Comment Spec In Lab Ratna Mcclain MD HEMATOLOGY ORDERABLES Performing Organization Address City/[facility]/ZIP [place] [address] POCT Glucose (04/21/2019 3:19 AM EDT) P athologist Signature POC Glucose 104 65 - 199 [facility] mg/dL [facility] Comment: Supplemental ranges: <140 mg/dL before meals <180 mg/dL all other times of the day Specimen Anatomical Collection Method Collection Time Receive d Time (Source) Location / / Volume Laterality Blood specimen 04/21/2019 3:19 AM 019 3:19 (specimen) EDT AM EDT Ratna Mcclain MD POINT OF CARE TEST ORDERABLE S Performing Organization Address City/[facility]/ZIP Code Phon e Number [facility] [place] [address] POCT Glucose (04/21/2019 12:08 AM EDT) athologist Signature POC Glucose 142 65 - 199 [facility] mg/dL [facility] Comment: Supplemental ranges: <140 mg/dL before meals <180 mg/dL all other times of the day Specimen Anatomical Collection Method Collection Time Receive d Time (Source) Location / / Volume Laterality Blood specimen 04/21/2019 12:08 9 (specimen) AM EDT 12:08 AM EDT Ratna Mcclain MD POINT OF CARE TEST ORDERABLE S Performing Organization Address City/State/Z[place] [address] (ABNORMAL) Fibrinogen (04/20/2019 8:54 PM EDT) athologist Signature Fibrinogen 124 (L) 200 - 393 [facility] mg/dL [facility] Comment: A fibrinogen level >100 mg/dL is adequat e for hemostasis in most patients without underlying bleeding disorders. Specimen Anatomical Collection Method Collection Time Receive d Time (Source) Location / / Volume Laterality Blood specimen 04/20/2019 8:54 PM 019 9:02 (specimen) EDT PM EDT Resulting Agency Comment Spec In Lab Bam Schrader MD HEMATOLOGY ORDERABLES Performing Organization Address City/State/Z[place] [address] (ABNORMAL) Prothrombin Time (04/20/2019 8:54 PM EDT) athologist Signature PT 18.5 (H) 9.4 - 12.5 [facility] LABORATORY INR 1.6 [facility] Comment: An INR <2.0 indicates [...] Location / / Volume Laterality Blood specimen 04/20/2019 8:54 PM 019 9:02 (specimen) EDT PM EDT Resulting Agency Comment Spec In Lab Bam Schrader MD HEMATOLOGY ORDERABLES Performing Organization Address City/State/[place] [address] (ABNORMAL) Hemogram (04/20/2019 8:54 PM EDT) [facility] gist Method Time Signature WBC 7.6 4.0 - 9.5 [facility] LABORATORY RBC 3.51 (L) 4.58 - [facility] 5.54 [facility] x10(6)/[facility] LABORATORY Hemoglobin 8.3 (L) 13.7 - [facility] 16.5 gm/dL [facility] Hematocrit 26.6 (L) 40.5 - [facility] 48.5 % [facility] MCV 75.8 (L) 82.9 - [facility] 93.1 [facility] LABORATORY MCH 23.6 (L) 27.5 - [facility] 32.1 pg [facility] MCHC 31.2 (L) 32.0 - [facility] 35.7 gm/dL [facility] Platelets 98 (L) 145 - 357 [facility] x10(3)/[facility] LABORATORY RDWSD 52.7 (H) 36.0 - [facility] 45.0 [facility] LABORATORY RDWCV 19.6 (H) 11.4 - [facility] 13.8 % [facility] MPV 10.8 7.6 - 12.9 [facility] LABORATORY nRBC % Auto 0.3 % [facility]ORY nRBC Abs Auto 0.020 (H) 0.000 - [facility] 0.000 [facility] x10(3)/[facility] LABORATORY Specimen Anatomical Collection Method Collection Time Receive d Time (Source) Location / / Volume Laterality Blood specimen 04/20/2019 8:54 PM 019 9:02 (specimen) EDT PM EDT Resulting Agency Comment Spec In Lab Bam Schrader MD HEMATOLOGY ORDERABLES Performing Organization Address City/State/Z[place] [address] POCT Glucose (04/20/2019 8:52 PM EDT) P athologist Signature POC Glucose 140 65 - 199 [facility] mg/dL [facility] Comment: Supplemental ranges: <140 mg/dL before meals <180 mg/dL all other times of the day Specimen Anatomical Collection Method Collection Time Receive d Time (Source) Location / / Volume Laterality Blood specimen 04/20/2019 8:52 PM 019 8:52 (specimen) EDT PM EDT Ratna Mcclain MD POINT OF CARE TEST ORDERABLE S Performing Organization Address City/[facility]/ZIP [place] [address] POCT Glucose (04/20/2019 3:57 PM EDT) athologist Signature POC Glucose 118 65 - 199 [facility] mg/dL [facility] Comment: Supplemental ranges: <140 mg/dL before meals <180 mg/dL all other times of the day Specimen Anatomical Collection Method Collection Time Receive d Time (Source) Location / / Volume Laterality Blood specimen 04/20/2019 3:57 PM 019 3:57 (specimen) EDT PM EDT Bam Schrader MD POINT OF CARE TEST ORDERABLE S Performing Organization Address City/[facility]/ZIP [place] [address] (ABNORMAL) Hemogram (04/20/2019 2:30 PM EDT) Analysis Performed At Patho logist Time Signature WBC 5.9 4.0 - 9.5 [facility] x10(3)/[facility] LABORATORY RBC 3.55 (L) 4.58 - [facility] 5.54 [facility] x10(6)/[facility] LABORATORY Hemoglobin 8.5 (L) 13.7 - [facility] 16.5 gm/dL [facility] Hematocrit 27.3 (L) 40.5 - [facility] 48.5 % [facility] MCV 76.9 (L) 82.9 - [facility] 93.1 [facility] LABORATORY MCH 23.9 (L) 27.5 - [facility] 32.1 pg [facility] MCHC 31.1 (L) 32.0 - [facility] 35.7 gm/dL [facility] Platelets 87 (L) 145 - 357 [facility] x10(3)/[facility] LABORATORY RDWSD 52.4 (H) 36.0 - [facility] 45.0 [facility] LABORATORY RDWCV 19.1 (H) 11.4 - [facility] 13.8 % [facility] MPV 10.3 7.6 - 12.9 [facility] LABORATORY nRBC % Auto 0.0 % [facility] nRBC Abs Auto 0.000 0.000 - [facility] 0.000 [facility] x10(3)/[facility] LABORATORY Specimen Anatomical Collection Method Collection Time Receive d Time (Source) Location / / Volume Laterality Blood specimen 04/20/2019 2:30 PM 019 2:59 (specimen) EDT PM EDT Resulting Agency Comment Spec In Lab Bam Schrader MD HEMATOLOGY ORDERABLES Performing Organization Address City/State/ZIP [place] [address] (ABNORMAL) Fibrinogen (04/20/2019 2:30 PM EDT) athologist Signature Fibrinogen 126 (L) 200 - 393 [facility] mg/dL [facility] Comment: A fibrinogen level >100 mg/dL is adequat e for hemostasis in most patients without underlying bleeding disorders. Specimen Anatomical Collection Method Collection Time Receive d Time (Source) Location / / Volume Laterality Blood specimen 04/20/2019 2:30 PM 019 2:59 (specimen) EDT PM EDT Resulting Agency Comment Spec In Lab Bam Schrader MD HEMATOLOGY ORDERABLES Performing Organization Address City/[facility]/ZIP [place] [address] (ABNORMAL) Prothrombin Time (04/20/2019 2:30 PM EDT) P athologist Signature PT 18.8 (H) 9.4 - 12.5 [facility] LABORATORY INR 1.6 [facility] Comment: An INR <2.0 indicates [...] Location / / Volume Laterality Blood specimen 04/20/2019 2:30 PM 019 2:59 (specimen) EDT PM EDT Resulting Agency Comment Spec In Lab Bam Schrader MD HEMATOLOGY ORDERABLES Performing Organization Address City/[facility]/ZIP Code Phon e Number [address] POCT Glucose (04/20/2019 12:04 PM EDT) P athologist Signature POC Glucose 109 65 - 199 [facility] mg/dL [facility] Comment: Supplemental ranges: <140 mg/dL before meals <180 mg/dL all other times of the day Specimen Anatomical Collection Method Collection Time Receive d Time (Source) Location / / Volume Laterality Blood specimen 04/20/2019 12:04 9 (specimen) PM EDT 12:04 PM EDT Bam Schrader MD POINT OF CARE TEST ORDERABLE S Performing Organization Address City/[facility]/ZIP Code Phon e Number [address] Scan, Peripheral Blood (04/20/2019 10:34 AM EDT) Patholo gist Method Time Signature Plat Estimate Decreased [facility] RBC Morphology Abnormal [facility] Macrocytes 1-5 /HPF [facility] Microcytes 1-5 /HPF [facility] Hypochromia Slight [facility] Polychromasia Present >5/HPF [facility] Tear Drop Cells 1-5 /HPF [facility] Diane Cells 1-5 /HPF [facility] Specimen Anatomical Collection Method Collection Time Receive d Time (Source) Location / / Volume Laterality Blood specimen 04/20/2019 10:34 9 (specimen) AM EDT 10:41 AM EDT Resulting Agency Comment Spec In Lab Anil Rhodes APRN HEMATOLOGY ORDERABLES Performing Organization Address City/[facility]/ZIP [place] [address] (ABNORMAL) Fibrinogen (04/20/2019 10:34 AM EDT) P athologist Signature Fibrinogen 121 (L) 200 - 393 [facility] mg/dL [facility] Comment: A fibrinogen level >100 mg/dL is adequat e for hemostasis in most patients without underlying bleeding disorders. Specimen Anatomical Collection Method Collection Time Receive d Time (Source) Location / / Volume Laterality Blood specimen 04/20/2019 10:34 9 (specimen) AM EDT 10:41 AM EDT Resulting Agency Comment Spec In Lab Bam Schrader MD HEMATOLOGY ORDERABLES Performing Organization Address City/State/ZIP [place] [address] (ABNORMAL) Prothrombin Time (04/20/2019 10:34 AM EDT) P athologist Signature PT 19.3 (H) 9.4 - 12.5 [facility] LABORATORY INR 1.7 [facility] Comment: An INR <2.0 indicates [...] Location / / Volume Laterality Blood specimen 04/20/2019 10:34 9 (specimen) AM EDT 10:41 AM EDT Resulting Agency Comment Spec In Lab Bam Schrader MD HEMATOLOGY ORDERABLES Performing Organization Address City/State/[place] [address] (ABNORMAL) Hemogram (04/20/2019 10:34 AM EDT) [facility] Method Time Signature WBC 8.0 4.0 - 9.5 [facility] x[facility](3[facility] LABORATORY RBC 3.68 (L) 4.58 - [place] 5.54 [facility] x10(6)/[facility] LABORATORY Hemoglobin 8.7 (L) 13.7 - [facility] 16.5 gm/dL [facility] Hematocrit 28.1 (L) 40.5 - [facility] 48.5 % [facility] MCV 76.4 (L) 82.9 - [facility] 93.1 [facility] LABORATORY MCH 23.6 (L) 27.5 - [facility] 32.1 pg [facility] MCHC 31.0 (L) 32.0 - [place] 35.7 gm/dL [facility] Platelets 85 (L) 145 - 357 [facility] LABORATORY RDWSD 53.2 (H) 36.0 - [facility] 45.0 [facility] LABORATORY RDWCV 19.9 (H) 11.4 - [facility] 13.8 % [facility] MPV 10.6 7.6 - 12.9 [facility] LABORATORY nRBC % Auto 0.2 % [facility] nRBC Abs Auto 0.020 (H) 0.000 - [facility] 0.000 [facility] x10(3)/[facility] LABORATORY Specimen Anatomical Collection Method Collection Time Receive d Time (Source) Location / / Volume Laterality Blood specimen 04/20/2019 10:34 9 (specimen) AM EDT 10:41 AM EDT Resulting Agency Comment Spec In Lab Bam Schrader MD HEMATOLOGY ORDERABLES Performing Organization Address City/State/[place] [address] Ammonia (04/20/2019 10:34 AM EDT) P athologist Signature Ammonia 49 16 - 60 [facility] LABORATORY Specimen Anatomical Collection Method Collection Time Receive d Time (Source) Location / / Volume Laterality Blood specimen 04/20/2019 10:34 9 (specimen) AM EDT 10:42 AM EDT Resulting Agency Comment Spec In Lab Maia L Tracey RANGEL CHEMISTRY ORDERABLES Performing Organization Address City/State/[place] [address] UPPER GI ENDOSCOPY (04/20/2019 9:11 AM EDT) Component Value Ref Test [facility] Method Time Signature UPPER GI [facility] ENDOSCOPY Endoscopy Procedure Date: 04/20/2019 9:11 AM ? Patient Name: Benjamín Henry ? Date of : 1955 ? Age: 64 ? Order #: [id number] ? Instrument Name: [id number] ? Procedure: ? Upper GI endoscopy Indications: ? Hematemesis Providers: ? Jamie Avalos MD, Marilyn Lehman ? MD Kenrick, Nicki Mcdaniel , ? Josh Sanchez MD: ? Medicines: ? General Anesthesia Complications: ? No immediate complications. Procedure: [...] antiplatelet agents. ASA Grad e ? Assessment: IV - A patient wi ? severe systemic disease that is a ? constant threat to life. Afte r ? reviewing the risks and benef its, the ? patient was deemed in satisfa ctory ? condition to undergo the proc edure. ? The anesthesia plan was to us e ? general anesthesia. Immediate ly prior ? to administration of medicati ons, the ? patient was re-assessed for a dequacy ? to receive sedatives. The hea rt rate, ? respiratory rate, oxygen satu rations, [...] the procedu re well. ? Findings: ? Two columns of non-bleeding large (> 5 mm) varices ? were found in the distal esophagus. No stigmata of ? recent bleeding were evident and no red amisha signs ? were present. Three bands were successfully placed ? with complete eradication, resulting in deflation of ? varices. There was no bleeding during the procedure. ? Type 1 gastroesophageal varix (GOV1, esophageal ? varices which extend along the lesser curvature) with ? no bleeding were found in the cardia. There was ? stigmata of recent bleeding. One band was ? successfully placed with complete eradication, ? resulting in deflation of varices. There was oozing ? upon suction of the varix ? There is no endoscopic evidence of bleeding or ? ulceration in the entire examined stomach. ? The examined duodenum was normal. ? Moderate Sedation: ? Not applicable - See Anesthesia documentation Impression: ?- Non-bleeding large (> 5 mm) ? esophageal varices. Completel y ? eradicated. Banded. ? - Type 1 gastroesophageal geronimo ix ? (GOV1, esophageal varices whi ch ? extend along the lesser curva ture), ? witth stigmata Completely era dicated. ? Banded. ? - Normal examined duodenum. ? - No specimens collected. Recommendation: ?- Return patient to ICU for ongoing ? care. ? - Clear liquid diet. ? - Observe patient's clinical course. ? - Octerotide drip ? - Antibiotics ? - RUQ ultrasound ? - PPI daily ? Procedure Code(s): ?? --- Professional --- ? 43082, Esophagogastroduodenos copy, ? flexible, transoral; with ban d ? ligation of esophageal/gastri c varices Diagnosis Code(s): ?? --- Professional --- ? K92.0, Hematemesis ? 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 I85.00, Esophageal varices [facility] ? bleeding ? --- Technical --- ? K92.0, Hematemesis ? 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 bleeding CPT copyright 2017 [employer]. All rights reserved. The codes documented in this report are preliminary and upon tierce filler review may be revised to meet current compliance requirements. Attending Participation: ? I was present and participated during the entire ? procedure, including non-corea portions. ? Jamie Avalos MD 04/20/2019 9:57:24 AM Number of Addenda: 0 Note Initiated On: 04/20/2019 9:11 AM Specimen (Source) Anatomical Collection Method Collection Time Re ceived Time Location / / Volume Laterality 04/20/2019 9:11 AM EDT Zeus Umaña MD GENERAL SURGICAL ORDERABLES Performing Organization Address City/State/ZIP Code Phon e Number [facility] Transfuse RBC (04/20/2019 9:09 AM EDT) Anil Rhodes APRN NURSING TREATMENT ORDERABLES - BLOOD ADMIN Transfuse RBC (04/20/2019 9:09 AM EDT) Anil Rhodes APRN NURSING TREATMENT ORDERABLES - BLOOD ADMIN POCT Glucose (04/20/2019 8:25 AM EDT) P athologist Signature POC Glucose 98 65 - 199 [facility] mg/dL [facility] Comment: Supplemental ranges: <140 mg/dL before meals <180 mg/dL all other times of the day Specimen Anatomical Collection Method Collection Time Receive d Time (Source) Location / / Volume Laterality Blood specimen 04/20/2019 8:25 AM 019 8:25 (specimen) EDT AM EDT Bam Schrader MD POINT OF CARE TEST ORDERABLE S Performing Organization Address City/[facility]/[place] [address] Transfuse RBC (04/20/2019 7:29 AM EDT) Anil Jayden Meagan RANGEL NURSING TREATMENT ORDERABLES - BLOOD ADMIN Prepare RBC (04/20/2019 6:05 AM EDT) P athologist Signature Dispensed? Yes [facility] Specimen Anatomical Collection Method Collection Time Receive d Time (Source) Location / / Volume Laterality Blood specimen 04/20/2019 6:05 AM 019 6:02 (specimen) EDT AM EDT Anil J Meagan RANGEL BLOOD BANK ORDERABLES Performing Organization Address City/[facility]/ZIP Code Phon e Number [address] Transfuse RBC (04/20/2019 5:54 AM EDT) Anil Rhodes APRN NURSING TREATMENT ORDERABLES - BLOOD ADMIN Transfuse RBC (04/20/2019 5:54 AM EDT) Anil Rhodes APRN NURSING TREATMENT ORDERABLES - BLOOD ADMIN (ABNORMAL) Fibrinogen (04/20/2019 5:50 AM EDT) P athologist Signature Fibrinogen 112 (L) 200 - 393 [facility] mg/dL [facility] Comment: Called by: zoya, Read back by: carmelita jackson , Date/Time:04/20/19 06:16. A fibrinogen level >100 mg/dL is adequat e for hemostasis in most patients without underlying bleeding disorders. Specimen Anatomical Collection Method Collection Time Receive d Time (Source) Location / / Volume Laterality Blood specimen 04/20/2019 5:50 AM 019 5:54 (specimen) EDT AM EDT Resulting Agency Comment Spec In Lab Anil Jayden Meagan RANGEL HEMATOLOGY ORDERABLES Performing Organization Address City/[facility]/ZIP [place] [address] (ABNORMAL) Prothrombin Time (04/20/2019 5:50 AM EDT) P athologist Signature PT 21.9 (H) 9.4 - 12.5 [facility] LABORATORY Comment: Called by: zoya, Read back by: byron jackson, Date/Time:04/20/19 06:17. INR 1.9 [facility] Comment: An INR <2.0 indicates [...] Location / / Volume Laterality Blood specimen 04/20/2019 5:50 AM 019 5:54 (specimen) EDT AM EDT Resulting Agency Comment Spec In Lab Anil Rhodes LITIGATION DOCKET MANAGER HEMATOLOGY ORDERABLES Performing Organization Address City/State/[place] [address] (ABNORMAL) Platelet count (04/20/2019 5:50 AM EDT) P athologist Signature Platelets 91 (L) 145 - 357 [facility] x10(3)/[facility] LABORATORY Plat Immature 2.4 0.0 - 7.4 [facility] % % [facility] Comment: Limitation of the Immature Platelet Frac tion (IPF)-May be less reliable when the platelet count is less than 27f237/u L due to statistical imprecision. The IPF value provides an assessment of the Bone Marrow production status. ??It is useful in differentiating Thrombocyto penia caused by platelet destruction/consumption versus decreased production. It also helps to determine the imminent release of platelets and ca n be therefore a helpful parameter in Chemotherapy and Bone marrow transplant patients. ELEVATED IPF value: ?? When the bone marrow is in a state of over production such as when increased destruction and consumption are the unde rlying issue. ?? When the marrow is recovering post ch emotherapy or bone marrow transplant. LOW to NORMAL IPF value: ?? When the bone marrow in not respondin g and is in a decreased state of production. References: [facility] [facility] The Clinical Value of the Immature Platelet Fraction (IPF) in Cell Recovery Document Number 10-1143 02/2011 [facility] The Role of the Imm ature Platelet Fraction (IPF) in the Differential Diagnosis of Thrombocytopen ia, Document [id number] V05/09/06 P002/04 Specimen Anatomical Collection Method Collection Time Receive d Time (Source) Location / / Volume Laterality Blood specimen 04/20/2019 5:50 AM 019 5:54 (specimen) EDT AM EDT Resulting Agency Comment Spec In Lab Anil Rhodes APRN HEMATOLOGY ORDERABLES Performing Organization Address City/State/ZIP Code Phon e Number [address] (ABNORMAL) Hematocrit (04/20/2019 5:50 AM EDT) P athologist Signature Hematocrit 22.9 (L) 40.5 - [facility] 48.5 % [facility] Specimen Anatomical Collection Method Collection Time Receive d Time (Source) Location / / Volume Laterality Blood specimen 04/20/2019 5:50 AM 019 5:54 (specimen) EDT AM EDT Resulting Agency Comment Spec In Lab Anil Rhodes APRN HEMATOLOGY ORDERABLES Performing Organization Address City/[facility]/ZIP [place] [address] (ABNORMAL) Hemoglobin (04/20/2019 5:50 AM EDT) P athologist Signature Hemoglobin 6.9 (L) 13.7 - 16.5 [facility] gm/dL [facility] Specimen Anatomical Collection Method Collection Time Receive d Time (Source) Location / / Volume Laterality Blood specimen 04/20/2019 5:50 AM 019 5:54 (specimen) EDT AM EDT Resulting Agency Comment Spec In Lab Anil Rhodes APRN HEMATOLOGY ORDERABLES Performing Organization Address City/[facility]/ZIP Code Phon e Number [address] Scan, Peripheral Blood (04/20/2019 3:50 AM EDT) Patholo gist Method Time Signature Plat Estimate Decreased [facility] RBC Morphology Abnormal [facility] Microcytes 6-10 /HPF [facility] Hypochromia Moderate [facility] Polychromasia Present >5/HPF [facility] Ovalocytes 1-5 /HPF [facility] Tear Drop Cells 1-5 /HPF [facility] Target Cells 1-5 /HPF [facility] Giant Platelets Less than 1 /HPF [facility] Specimen Anatomical Collection Method Collection Time Receive d Time (Source) Location / / Volume Laterality Blood specimen 04/20/2019 3:50 AM 019 3:56 (specimen) EDT AM EDT Resulting Agency Comment Spec In Lab Anil Rhodes LITIGATION DOCKET MANAGER HEMATOLOGY ORDERABLES Performing Organization Address City/State/Z[place] [address] (ABNORMAL) Hemogram (04/20/2019 3:50 AM EDT) Analysis Performed At Patho logist Time Signature WBC 6.8 4.0 - 9.5 [facility](3[facility] LABORATORY RBC 3.14 (L) 4.58 - [facility] 5.54 [facility] x10(6)/[facility] LABORATORY Hemoglobin 6.7 (L) 13.7 - [facility] 16.5 gm/dL [facility] Hematocrit 23.3 (L) 40.5 - [facility] 48.5 % [facility] MCV 74.2 (L) 82.9 - [facility] 93.1 [facility] LABORATORY MCH 21.3 (L) 27.5 - [place] 32.1 pg [facility] MCHC 28.8 (L) 32.0 - [facility] 35.7 gm/dL [facility] Platelets 89 (L) 145 - 357 [facility](3[facility] LABORATORY RDWSD 53.4 (H) 36.0 - [place] [facility] 45.0 [facility] LABORATORY RDWCV 20.3 (H) 11.4 - [facility] 13.8 % [facility] MPV 9.8 7.6 - 12.9 [facility] LABORATORY nRBC % Auto 0.0 % [facility]OR[facility] nRBC Abs Auto 0.000 0.000 - [facility] 0.000 [facility] x10(3)/[facility] LABORATORY Specimen Anatomical Collection Method Collection Time Receive d Time (Source) Location / / Volume Laterality Blood specimen 04/20/2019 3:50 AM 019 3:56 (specimen) EDT AM EDT Resulting Agency Comment Spec In Lab Bam Schrader MD HEMATOLOGY ORDERABLES Performing Organization Address City/[facility]/ZIP Code Phon e Number [address] Prepare RBC (04/20/2019 3:35 AM EDT) athologist Signature Dispensed? Yes [facility] Specimen Anatomical Collection Method Collection Time Receive d Time (Source) Location / / Volume Laterality Blood specimen 04/20/2019 3:35 AM 019 3:32 (specimen) EDT AM EDT Anil Rhodes APRN BLOOD BANK ORDERABLES Performing Organization Address City/[facility]/ZIP Code Phon e Number [address] (ABNORMAL) Hepatic Function Panel (04/20/2019 2:40 AM EDT) P athologist Signature Total Protein 5.9 (L) 6.1 - 8.0 [facility] gm/dL [facility] Albumin 2.5 (L) 3.2 - 5.2 [facility] gm/dL [facility] AST 51 (H) 0 - 39 [facility] unit/L [facility] ALT 26 0 - 55 [facility] unit/L [facility] Alk Phos 74 40 - 130 [facility] unit/L [facility] Total 1.4 (H) 0.2 - 1.3 [facility] Bilirubin mg/dL [facility] Bili, Direct 0.7 (H) 0.0 - 0.3 [facility] mg/dL [facility] Specimen Anatomical Collection Method Collection Time Receive d Time (Source) Location / / Volume Laterality Blood specimen Venous Draw / 04/20/2019 2:40 AM 2018 3:58 (specimen) Unknown EDT AM EDT Resulting Agency Comment Spec In Lab Maia Lovelace Webb LITIGATION DOCKET MANAGER CHEMISTRY ORDERABLES Performing Organization Address City/State/Z[place] [address] ABORH Recheck Status (04/20/2019 2:40 AM EDT) Patholo gist Method Time Signature ABORH Recheck Order Placed [facility] LABORATORY ABORH Type Complete [facility] LABORATORY Specimen Anatomical Collection Method Collection Time Receive d Time (Source) Location / / Volume Laterality Blood specimen 04/20/2019 2:40 AM 019 2:49 (specimen) EDT AM EDT Resulting Agency Comment Spec In Lab Anil Carpenter Meagan LITIGATION DOCKET MANAGER BLOOD BANK ORDERABLES Performing Organization Address City/State/Z[place] [address] Hemogram (04/20/2019 2:40 AM EDT) P athologist Signature WBC Clotted 4.0 - 9.5 [facility] Comment: Called by: GREGORY, Read back by: Virgilio Lewis, Date/Time:04/20/19 03:38. Corrected from Clotted on 04/20/19 3:38: 22 EDT by Sammi Talley Corrected from 6.9 x10(3)/mcL on 9 3:37:58 EDT by Sammi Talley. RBC Clotted 4.58 - 5.54 [facility] Comment: Corrected from 3.20 x10(6)/mcL [LOW] on 04/20/19 3:37:58 EDT by Sammi Talley. Hemoglobin Clotted 13.7 - 16.5 [facility] Comment: Corrected from 6.8 gm/dL [LOW] on 04/20/19 3:37:58 EDT by Sammi Talley Hematocrit Clotted 40.5 - 48.5 [facility] Comment: Corrected from 23.4 % [LOW] on 04/20/19 3:37:58 EDT by Sammi Talley MCV Clotted 82.9 - 93.1 [facility] Comment: Corrected from 73.1 fL [LOW] on 04/20/19 3:37:58 EDT by Sammi Talley MCH Clotted 27.5 - 32.1 [facility] Comment: Corrected from 21.3 pg [LOW] on 04/20/19 3:37:58 EDT by Sammi Talley MCHC Clotted 32.0 - 35.7 [facility] Comment: Corrected from 29.1 gm/dL [LOW] on 04/20/19 3:37:58 EDT by Sammi Talley Platelets Clotted 145 - 357 [facility] Comment: Corrected from 104 x10(3)/mcL [LOW] on 0 04/20/19 3:37:58 EDT by Sammi Talley RDWSD Clotted 36.0 - 45.0 [facility] Comment: Corrected from 52.8 fL [HI] on 04/20/19 3:37:58 EDT by Sammi Talley RDWCV Clotted 11.4 - 13.8 [facility] Comment: Corrected from 20.5 % [HI] on 0 04/20/19 3:37:58 EDT by Sammi Talley MPV 10.6 7.6 - 12.9 fL [facility] LABORATORY nRBC % Auto 0.0 % [facility] nRBC Abs Auto 0.000 0.000 - 0.000 x10(3)/mcL [facility] LABORATORY Specimen Anatomical Collection Method Collection Time Receive d Time (Source) Location / / Volume Laterality Blood specimen 04/20/2019 2:40 AM 019 2:55 (specimen) EDT AM EDT Resulting Agency Comment Spec In Lab Anil Rhodes LITIGATION DOCKET MANAGER HEMATOLOGY ORDERABLES Performing Organization Address City/[facility]/ZIP [place] [address] Antibody screen (04/20/2019 2:40 AM EDT) Patholo gist Method Time Signature Ab Screen Negative [facility] LABORATORY Expires at 04/23/2019 [place] BREEN [id number] on: [facility] Specimen Anatomical Collection Method Collection Time Receive d Time (Source) Location / / Volume Laterality Blood specimen 04/20/2019 2:40 AM 019 2:49 (specimen) EDT AM EDT Resulting Agency Comment Spec In Lab Anil Rhodes APRN BLOOD BANK ORDERABLES Performing Organization Address [facility] Code Phon e Number [address] ABO/Rh Typing (04/20/2019 2:40 AM EDT) P athologist Signature ABORh Type A Neg [facility] Specimen Anatomical Collection Method Collection Time Receive d Time (Source) Location / / Volume Laterality Blood specimen 04/20/2019 2:40 AM 019 2:49 (specimen) EDT AM EDT Resulting Agency Comment Spec In Lab Anil Rhodes LITIGATION DOCKET MANAGER BLOOD BANK ORDERABLES Performing Organization Address [facility]/ZIP [place] [address] (ABNORMAL) Fibrinogen (04/20/2019 2:40 AM EDT) P athologist Signature Fibrinogen 126 (L) 200 - 393 [facility] mg/dL [facility] Comment: A fibrinogen level >100 mg/dL is adequat e for hemostasis in most patients without underlying bleeding disorders. Specimen Anatomical Collection Method Collection Time Receive d Time (Source) Location / / Volume Laterality Blood specimen 04/20/2019 2:40 AM 019 2:55 (specimen) EDT AM EDT Resulting Agency Comment Spec In Lab Bam Schrader MD HEMATOLOGY ORDERABLES Performing Organization Address City/State/ZIP Code Phon e Number [address] Phosphorus (04/20/2019 2:40 AM EDT) athologist Signature Phosphorus 2.8 2.5 - 4.5 [facility] mg/dL [facility]OR[facility]ORY Specimen Anatomical Collection Method Collection Time Receive d Time (Source) Location / / Volume Laterality Blood specimen 04/20/2019 2:40 AM 019 2:55 (specimen) EDT AM EDT Resulting Agency Comment Spec In Lab Bam Schrader MD CHEMISTRY ORDERABLES Performing Organization Address City/State/ZIP Code Phon e Number [address] (ABNORMAL) Magnesium (04/20/2019 2:40 AM EDT) athologist Signature Magnesium 0.68 (L) 0.69 - 1.07 [facility] mmol/L [facility] Specimen Anatomical Collection Method Collection Time Receive d Time (Source) Location / / Volume Laterality Blood specimen 04/20/2019 2:40 AM 019 2:55 (specimen) EDT AM EDT Resulting Agency Comment Spec In Lab Bam Schrader MD CHEMISTRY ORDERABLES Performing Organization Address City/State/ZIP Code Phon e Number [address] (ABNORMAL) Basic Metabolic Panel (non-fasting) (04/20/2019 2:40 AM EDT) athologist Signature Glucose Lvl 110 65 - 199 [facility] mg/dL [facility] Comment: Diabetes: >=200 mg/dL plus symp toms BUN 22 (H) 10 - 20 mg/dL [facility] LAB[facility]ORY Creatinine 0.76 (L) 0.80 - 1.50 mg/dL [facility] Sodium 139 135 - 145 mmol/L [facility] Potassium 4.5 3.5 - 5.0 mmol/L [facility] LABORATORY Comment: Please note: ??Patients with WBC >100,00 0 may have falsely elevated Potassium levels. ??For accurate Potassium quantif ication in these patients send serum separator tube (gold top) for subsequent determinations. ??Contact the Clinical Chemistry Laboratory if there are any qu estions. Chloride 108 (H) 98 - 107 mmol/L [facility] CO2 21 (L) 22 - 31 mmol/L [facility] Anion Gap 10 5 - 15 mmol/L [facility] Calcium 7.2 (L) 8.5 - 10.5 mg/dL [facility] Estimated GFR 96 >=60 mL/min/1.73 m?? [facility] Comment: The eGFR was calculated using the CKD-EP I equation. As with all creatinine based estimates of kidney function, eGFR values calculated with the CKD-EPI equation are not accurate in patients wi th acute kidney failure, extremes of body mass or the acutely ill. http://[email or web address]/[facility] eGFR 112 >=60 mL/min/1.73 m?? [facility] Comment: The eGFR was calculated using the CKD-EP I equation. As with all creatinine based estimates of kidney function, eGFR values calculated with the CKD-EPI equation are not accurate in patients wi th acute kidney failure, extremes of body mass or the acutely ill. http://[employer]/[facility] Specimen Anatomical Collection Method Collection Time Receive d Time (Source) Location / / Volume Laterality Blood specimen 04/20/2019 2:40 AM 019 2:55 (specimen) EDT AM EDT Resulting Agency Comment Spec In Lab Bam Schrader MD CHEMISTRY ORDERABLES Performing Organization Address City/State/[place] [address] (ABNORMAL) Prothrombin Time (04/20/2019 2:40 AM EDT) P athologist Signature PT 21.9 (H) 9.4 - 12.5 [facility] LABORATORY INR 1.9 [facility] Comment: An INR <2.0 indicates [...] Location / / Volume Laterality Blood specimen 04/20/2019 2:40 AM 019 2:55 (specimen) EDT AM EDT Resulting Agency Comment Spec In Lab Bam Schrader MD HEMATOLOGY ORDERABLES Performing Organization Address City/[facility]/ZIP [place] [address] (ABNORMAL) Lactate, whole blood, send to lab (Leb/CGP) (04/20/2019 2:40 AM EDT) P athologist Signature Lactate WB 3.0 (H) 0.5 - 2.2 [facility] mmol/L [facility] Specimen Anatomical Collection Method Collection Time Receive d Time (Source) Location / / Volume Laterality Blood specimen 04/20/2019 2:40 AM 019 2:55 (specimen) EDT AM EDT Resulting Agency Comment Spec In Lab Anil Rhodes APRN CHEMISTRY ORDERABLES Performing Organization Address [facility]/[place]IP [place] [address] POCT Glucose (04/20/2019 2:35 AM EDT) P athologist Signature POC Glucose 116 65 - 199 [facility] mg/dL [facility] Comment: Supplemental ranges: <140 mg/dL before meals <180 mg/dL all other times of the day Specimen Anatomical Collection Method Collection Time Receive d Time (Source) Location / / Volume Laterality Blood specimen 04/20/2019 2:35 AM 019 2:35 (specimen) EDT AM EDT Zeus Umaña MD POINT OF CARE TEST ORDERABLE S Performing Organization Address City/[facility]/[place]IP [place] [address] documented in this encounter Visit Diagnoses Diagnosis UGIB (upper gastrointestinal bleed) - Pr imary Hemorrhage of gastrointestinal tract, un specified Acute blood loss anemia Acute posthemorrhagic anemia 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 Alcoholic cirrhosis of liver Bleeding esophageal varices, unspecified esophageal varices type Esophageal varices Esophageal varices without mention of bl eeding documented in this encounter Admitting Diagnoses Diagnosis UGIB (upper gastrointestinal bleed) Hemorrhage of gastrointestinal tract, un specified documented in this encounter Administered Medications Inactive Administered Medications - up to 3 most recent administrations Medication Order MAR Action Action Date Dose Rate Site benzonatate (TESSALON) capsule 100 Given 04/22/2019 2:53 PM EDT 100 mg mg 100 mg, Oral, 3 TIMES DAILY, First dose on Sun04/20/19 at 1045, Until Discontinued, DO NOT CRUSH OR OPEN, Routine Given 04/22/2019 8:12 AM EDT 100 mg Given 04/21/2019 9:12 PM EDT 100 mg cefTRIAXone (ROCEPHIN) 1 g vial attach New Bag 04/22/2019 8:11 AM EDT 1 g 100 mL/hr to sodium chloride 0.9% 50 mL Mini-Bag Plus 1 g, Intravenous, EVERY 24 HOURS, First dose on Sun04/21/19 at 0800, Until Discontinued, Administer over 30 Minutes, Indication for (Active or Suspected): Other (See comment) New Bag 04/21/2019 8:32 AM EDT 1 g 100 mL/hr dextrose 50% intravenous solution 25-50 mL 25-50 mL (12.5-25 g), Intravenous, EVERY 1 HOUR PRN, S tarting on Sun04/20/19 at 0231, Until Tu04/22/19 at 1918, Low blood sugar, F or BG 50-70 mg/dL: Oral treatment preferred:?? If able to drink, give 120 mL Juice or Regular (not diet) soda OR If NPO, give 15 gram glucose 40% oral gel massaged into buccal mucosa OR if unconscious or uncooperative, give 12.5 gram (25 mL) Dextrose 50% IV OR, if no IV access, give 1 mg Glucagon IM. For BG less than 50 mg/dL: Oral treatment preferred:?? If able to drink, give 240 mL Juice or Regular (not diet) soda OR If NPO, give 30 gram glucose 40% oral gel m assaged in buccal mucosa OR if unconscious or uncooperative, give 25 gram (50 mL) D extrose 50% IV OR, if no IV access, give 1 mg Glucagon IM. Recheck BG in 30 minutes. May repeat juice, gel, dextrose or glucagon once per episode. To avoid ex travasation, push Dextrose 50% SLOWLY (3 mL over 1 minute) in a patent, running IV, preferably a c entral line. For persistent hypoglycemia, consider longer -acting treatment for the duration of the active insulin., Routine folic acid injection 1 mg Given 04/22/2019 8:12 AM EDT 1 mg 1 mg, Intravenous, DAILY, First dose on Sun04/20/19 at 0900, Until Discontinued, Routine Given 04/21/2019 10:02 AM EDT 1 mg Given 04/20/2019 12:07 PM EDT 1 mg glucagon (human recombinant) injection S olR 1 mg 1 mg, Intramuscular, EVERY 1 HOUR PRN, S tarting on Sun04/20/19 at 0231, Until Sun04/22/19 at 1918, Low blood sugar, For BG 50-70 mg/d L: Oral treatment preferred:?? If able to drink, give 120 mL Juice or Regular (not diet) soda OR If NPO, give 15 gram glucose 40% oral gel massaged into b uccal mucosa OR if unconscious or uncooperative, give 12.5 gram (25 mL) Dextrose 50% IV OR, if no IV access, give 1 mg Glucagon IM. For BG less than 50 mg/dL: Oral treatment preferred:?? If able to drink, give 240 mL Juice or Regular (not diet) soda OR If NPO, give 30 gram glucose 40% oral gel m assaged in buccal mucosa OR if unconscious or uncooperative, give 25 gram (50 mL) D extrose 50% IV OR, if no IV access, give 1 mg Glucagon IM. Recheck BG in 30 minutes. May repeat juice, gel, dextrose or glucagon once per episode. To avoid ex travasation, push Dextrose 50% SLOWLY (3 mL over 1 minute) in a patent, running IV, preferably a c entral line. For persistent hypoglycemia, consider longer -acting treatment for the duration of the active insulin., Routine glucose (GLUTOSE) 40% oral gel 15-30 g, Buccal, EVERY 30 MIN PRN, Starting on 03/25 at 0231, Until Sun04/22/19 at 1918, Low blood sugar, For BG 50-70 mg/d L: Oral treatment preferred:?? If able to drink, give 120 mL Juice or Regular (not diet) soda OR If NPO, give 15 gram glucose 40% oral gel massaged into b uccal mucosa OR if unconscious or uncooperative, give 12.5 gram (25 mL) Dextrose 50% IV OR, if no IV access, give 1 mg Glucagon IM. For BG less than 50 mg/dL: Oral treatment preferred:?? If able to drink, give 240 mL Juice or Regular (not diet) soda OR If NPO, give 30 gram glucose 40% oral gel m assaged in buccal mucosa OR if unconscious or uncooperative, give 25 gram (50 mL) D extrose 50% IV OR, if no IV access, give 1 mg Glucagon IM. Recheck BG in 30 minutes. May repeat juice, gel, dextrose or glucagon once per episode. To avoid ex travasation, push Dextrose 50% SLOWLY (3 mL over 1 minute) in a patent, running IV, preferably a c entral line. For persistent hypoglycemia, consider longer -acting treatment for the duration of the active insulin. 1 tube contains 15 grams of glucose (n et weight of tube = 37.5 grams., Routine insulin lispro (HumaLOG) VIAL injection 2-8 Given 03/25 12:09 AM EDT 2 Units Units 2-8 Units, Subcutaneous, EVERY 4 HOURS SCHEDULED, First dose on Sun04/20/19 at 0900, Until Discontinued, CORRECTION BOLUS Moderate BG 140 - 160 Give 2 units BG 161 - 200 Give 4 units BG 201 - 240 Give 6 units BG greater than 240, give 8 units and recheck BG in 2 hours. If less than 240 after two hours, give no insulin and resume prior schedule. If BG remains greater than 240, repeat 8 units (no more than three times) & call for new basal insulin orders. Do not hold if NPO, unless specifically told to do so., Routine Given 04/20/2019 9:29 PM EDT 2 Units magnesium sulfate 2 g in sterile water New Bag 04/20/2019 6:57 AM EDT 2 g 25 mL/hr 50 mL 2 g, Intravenous, ONCE, 1 dose, On 04/20/19 at 0645, Administer over 120 Minutes melatonin tablet 3 mg Given 04/21/2019 9:12 PM EDT 3 mg 3 mg, Oral, NIGHTLY, First dose on 04/21/19 at 0315, Until Discontinued, Routine Given 04/21/2019 3:12 AM EDT 3 mg octreotide acetate (SandoSTATIN) New Bag 04/22/2019 1:34 PM ED T 50 mcg/hr 10 mL/hr 500 mcg in sodium chloride 0.9% 100 mL infusion 50 mcg/hr (10 mL/hr), Intravenous, CONTINUOUS, Starting on Sun04/20/19 at 0300, Until Sun04/22/19 at 1918 Rate/Dose Verify 04/22/2019 6:00 AM EDT 50 mcg/hr 10 mL/hr Rate/Dose Verify 04/22/2019 4:00 AM EDT 50 mcg/hr 10 mL/hr pantoprazole (PROTONIX) 80 mg in New Bag 04/20/2019 4:46 AM ED T 8 mg/hr 12 mL/hr sodium chloride 0.9% 120 mL infusion 8 mg/hr (12 mL/hr), Intravenous, CONTINUOUS, Starting on Sun04/20/19 at 0430, Until Sun04/20/19 at 1104 pantoprazole (PROTONIX) tablet 40 mg Given 04/22/2019 8:12 AM EDT 40 mg 40 mg, Oral, DAILY, First dose on Sun04/20/19 at 1130, Until Discontinued, DO NOT CRUSH OR OPEN, Routine Given 04/21/2019 8:34 AM EDT 40 mg Given 04/20/2019 12:08 PM EDT 40 mg thiamine (B-1) injection 100 mg Given 04/22/2019 8:12 AM EDT 100 mg 100 mg, Intravenous, DAILY, First dose on Sun04/20/19 at 0900, Until Discontinued, Doses of 100 mg are to be administered as IV push over 5 minutes. Doses of 200 mg or more should be mixed in 50 mL 0.9% Sodium Chloride and infused over 30 minutes. Given 04/21/2019 8:34 AM EDT 100 mg Given 04/20/2019 10:43 AM EDT 100 mg documented in this encounter Active and Recently Administered Medications Times are shown in EDT. Scheduled Medication Order 04/20/2019 04/21/2019 04/22/2019 benzonatate (TESSALON) capsule 100 mg 1043 (Given - Pr ovider: Yris Funk RN)1432 (Given - Provider: Yris Funk RN)2129 (Given - Provider: Tres Carpio, RN) 0834 (Given - Provider: Bull Vásquez N)1524 (Given - Provider: Mindy Bonilla RN)2112 (Given - Provider: Tres Carpio RN) 0812 (Given - Provider: Cynthia Nunes RN)1453 (Given - Provider: Cynthia Nunes RN) 100 mg, Oral, 3 TIMES DAILY, First dose on 04/20/19 at 1045, Until Discontinued, DO NOT CRUSH OR OPEN, Routine cefTRIAXone (ROCEPHIN) 1 g vial attach t o sodium chloride 0.9% 50 mL Mini-Bag Plus 0923 (NOV Hold - Provider: Admin Adt - R nicki: Transfer to a Procedural area)1016 (NOV Unhold - Provider: Admin Adt) 0832 (New Bag - Provider: Mindy Bonilla RN)0902 (Stopped - Provider: Mindy Bonilla RN) 0811 (New Bag - Provider: Cynthia Nunes RN)0841 (Stopped - Provider: Cynthia Nunes RN) 1 g, Intravenous, EVERY 24 HOURS, First dose on Sun04/21/19 at 0800, Until Discontinued, Administer over 30 Minutes, Indication for (Active or Suspected): Other (See comment) folic acid injection 1 mg 0923 (NOV Hold - Provider: A dmin Adt - Reason: Transfer to a Procedural area)1016 (NOV Unhold - Provider: Admin Adt)1207 (Given - Provider: Yris Funk, CLAU - Comment: pharmacy related) 1002 (Given - Provider: Mindy Bonilla RN) 0812 (Given - Provider: Cynthia bishop RN) 1 mg, Intravenous, DAILY, First dose on 04/20/19 at 0900, Until Discontinued, Routine insulin lispro (HumaLOG) VIAL injection 2-8 Units 0900 (Not Given - Provider: Yris Funk RN - Reason: Order parameters not met)0923 (NOV Hold - Provider: Admin Adt - Reason: Transfer to a Procedural area)1016 (NOV Unhold - Provider: Admin Adt) 0009 (Given - Provider: Tres byrnes RN)0400 (Not Given - Provider: Tres Carpio RN - Reason: Contraindicated - Comment: no insulin needed)0800 (Not Given - Provider: Mindy Bonilla RN - Reason: Order parameters not met) 0000 (Not Given - Provider: Tres johnson RN - Reason: Patient not available)0400 (Hold - Provider: Tres Carpio RN - Reason: Contraindicated - Comment: insulin not needed) 2-8 Units, Subcutaneous, EVERY 4 HOURS S CHEDULED, First dose on 04/20/19 at 0900, Until Discontinued, CORRECTION BOLUS Moderate BG 140 - 160 Give 2 units BG 161 - 200 Give 4 units BG 201 - 240 Gi 1200 (Not Given - Provider: Yris Funk RN - Reason: Order parameters not met)1600 (Not Given - Provider: Yris Funk RN - Reason: Order parameters not met)2129 (Given - Provider: Tres Carpio RN) 1200 (Not Given - Provider: Mindy bradley RN - Reason: Order parameters not met)1600 (Not Given - Provider: Mindy Bonilla RN - Reason: Order parameters not met) 0800 (Not Given - Provider: Cynthia Nunes RN - Reason: Order parameters not met)1200 (Not Given - Provider: Cynthia Nunes RN - Reason: Order parameters not met)1600 (Due - Provider: Admin Adt) ve 6 units BG greater than 240, give 8 u nits and recheck BG in 2 hours. If less than 240 after two hours, give no insulin and resume prior schedule. If BG remains greater than 240, repeat 8 units (no mo 1999 ( Hold - Provider: Tres Carpio RN - Reason: Contraindicated - Comment: no insulin needed) re than three times) & call for new basa l insulin orders. Do not hold if NPO, unless specifically told to do so., Routine magnesium sulfate 2 g in sterile water 50 mL (COMPLETE D) 0657 (New Bag - Provider: Gladis Cross RN)0857 (Stopped - Provider: Yris Funk RN) 2 g, Intravenous, ONCE, 1 dose, Sun 04/20 at 0645, Administer over 120 Minutes melatonin tablet 3 mg 311 (Given - Prov ider: Tres Carpio RN)2111 (Given - Provider: Tres Carpio RN) 3 mg, Oral, NIGHTLY, First dose on Mon at 0315, Until Discontinued, Routine pantoprazole (PROTONIX) tablet 40 mg 1208 (Given - Pro vider: Yris Funk RN) 0834 (Given - Provider: Mindy Bonilla, RN) 0812 (Given - Provider: Cynthia Nunes, CLAU) 40 mg, Oral, DAILY, First dose on Sun at 1130, Until Discontinued, DO NOT CRUSH OR OPEN, Routine thiamine (B-1) injection 100 mg 0923 (NOV Hold - Provi anamaria: Admin Adt - Reason: Transfer to a Procedural area)1016 (NOV Unhold - Provider: Admin Adt)1043 (Given - Provider: Yris Funk RN) 0834 (Given - Provider: Mindy Bonilla, RN) 0812 (Given - Provider: Cynthia Nunes, RN) 100 mg, Intravenous, DAILY, First dose o n 04/20/19 at 0900, Until Discontinued, Doses of 100 mg are to be administered as IV push over 5 minutes. Doses of 200 mg or more should be mixed in 50 mL 0.9% Sodium Chloride and infused over 30 minutes. Continuous Medication Order 04/20/2019 04/21/2019 04/22/2019 octreotide acetate (SandoSTATIN) 500 mcg in sodium chloride 0.9% 100 mL infusion 0250 (New Bag - Provider: Gladis Cross RN)0829 (Rate/Dose Change - Provider: Yris Funk RN)0923 (NOV Hold - Provider: Admin Adt - Reason: Transfer to a Procedural area)1016 (NOV Unhold - Provider: Admin Adt) 0000 (Rate/Dose Verify - Provider: Tres Carpio RN)0200 (Rate/Dose Verify - Provider: Tres Carpio RN)0400 (Rate/Dose Verify - Provider: Tres Carpio RN)0600 (Rate/Dose Verify - Provider: Tres Carpio RN) 0000 (Rate/Dose Verify - Provider: Tres Carpio RN)0200 (Rate/Dose Verify - Provider: Tres Carpio RN)0238 (New Bag - Provider: Lata Maravilla RN)0400 (Rate/Dose Verify - Provider: Tres Carpio RN) 50 mcg/hr (10 mL/hr), at 10 mL/hr, Intra venous, CONTINUOUS, Starting 04/20/19 at 0300, Until 04/22/19 at 1918 1623 (New Bag - Provider: Yris bradley RN)2000 (Rate/Dose Verify - Provider: Tres Carpio RN)2200 (Rate/Dose Verify - Provider: Tres Carpio RN) 0612 (New Bag - Provider: Tres Carpio RN)1518 (New Bag - Provider: Khadijah Gaston RN)2000 (Rate/Dose Verify - Provider: Tres Carpio RN)2200 (Rate/Dose Verify - Provider: Tres Carpio RN) 0600 (Rate/Dose Verify - Provider: Kina Carpio RN)1334 (New Bag - Provider: Cynthia Nunes, CLAU)1500 (Stopped - Provider: Cynthia Nunes, CLAU) pantoprazole (PROTONIX) 80 mg in sodium chloride 0.9% 120 mL infusion (CANCELED) 0446 (New Bag - Provider: Gladis Cross RN - Comment: per pharmasist it is compatable with octritide)0923 ([facility] Hold - Provider: Admin Adt - Reason: Transfer to a Procedural area)1016 ([facility] Unhold - Provider: Admin Adt) 8 mg/hr (12 mL/hr), at 12 mL/hr, Intrave nous, CONTINUOUS, Starting 04/20/19 at 0430, Until 04/20/19 at 1104 PRN Medication Order 04/20/2019 04/21/2019 04/22/2019 dextrose 50% intravenous solution 25-50 mL(Linked Grou p 1) 0923 ([facility] Hold - Provider: Admin Adt - Reason: Transfer to a Procedural area)1016 ([facility] Unhold - Provider: Admin Adt) 25-50 mL (12.5-25 g), Intravenous, EVERY 1 HOUR PRN, Starting 04/20/19 at 0231, Until Sun04/22/19 at 1917, Low blood sugar, For BG 50-70 mg/dL: Oral treatment preferred:?? If able to drink, give 1 20 mL Juice or Regular (not diet) soda O R If NPO, give 15 gram glucose 40% oral gel massaged into buccal mucosa OR if unconscious or uncooperative, give 12.5 gram (25 mL) Dextrose 50% IV OR, if no IV ac cess, give 1 mg Glucagon IM. For BG l ess than 50 mg/dL: Oral treatment preferred:?? If able to drink, give 240 mL Juice or Regular (not diet) soda OR If NPO, give 30 gram glucose 40% oral gel massage d in buccal mucosa OR if unconscious or uncooperative, give 25 gram (50 mL) Dextrose 50% IV OR, if no IV access, give 1 mg Glucagon IM. Recheck BG in 30 minutes. May repeat juice, gel, dextrose or glu cagon once per episode. To avoid extra vasation, push Dextrose 50% SLOWLY (3 mL over 1 minute) in a patent, running IV, preferably a central line. For persistent hypoglycemia, consider longer-acting treatment for the duration of the active insulin., Routine glucagon (human recombinant) injection SolR 1 mg(Linke d Group 1) 0923 (NOV Hold - Provider: Admin Adt - Reason: Transfer to a Procedural area)1016 (NOV Unhold - Provider: Admin Adt) 1 mg, Intramuscular, EVERY 1 HOUR PRN, S tarting Lawrence 04/20/19 at 0231, Until Sun04/22/19 at 1917, Low blood sugar, For BG 50-70 mg/dL: Oral treatment preferred:?? If able to drink, give 120 mL Juice or Regular (not diet) soda OR If NPO, give 15 gram glucose 40% oral gel massaged into buccal mucosa OR if unconscious or uncooperative, give 12.5 gram (25 mL) Dextrose 50% IV OR, if no IV access, give 1 m g Glucagon IM. For BG less than 50 mg /dL: Oral treatment preferred:?? If able to drink, give 240 mL Juice or Regular (not diet) soda OR If NPO, give 30 gram glucose 40% oral gel massaged in buccal mu cosa OR if unconscious or uncooperative, give 25 gram (50 mL) Dextrose 50% IV OR, if no IV access, give 1 mg Glucagon IM. Recheck BG in 30 minutes. May repeat juice, gel, dextrose or glucagon once per episode. To avoid extravasation, push Dextrose 50% SLOWLY (3 mL over 1 minute) in a patent, running IV, preferably a central line. For persistent hypoglycemia, consider longer-acting treatment for the duration of the active insulin., Routine glucose (GLUTOSE) 40% oral gel(Linked Group 1) 0923 ([facility] Hold - Provider: Admin Adt - Reason: Transfer to a Procedural area)1016 ([facility] Unhold - Provider: Admin Adt) 15-30 g, Buccal, EVERY 30 MIN PRN, Start ing 04/20/19 at 0231, Until Tu04/22/19 at 1918, Low blood sugar, For BG 50-70 mg/dL: Oral treatment preferred:?? If able to drink, give 120 mL Juice or Reg ular (not diet) soda OR If NPO, give 15 gram glucose 40% oral gel massaged into buccal mucosa OR if unconscious or uncooperative, give 12.5 gram (25 mL) Dextrose 50% IV OR, if no IV access, give 1 mg Gl ucagon IM. For BG less than 50 mg/dL: Oral treatment preferred:?? If able to drink, give 240 mL Juice or Regular (not diet) soda OR If NPO, give 30 gram glucose 40% oral gel massaged in buccal mucosa OR if unconscious or uncooperative, giv e 25 gram (50 mL) Dextrose 50% IV OR, if no IV access, give 1 mg Glucagon IM. Recheck BG in 30 minutes. May repeat juice, gel, dextrose or glucagon once per epi sode. To avoid extravasation, push Dex trose 50% SLOWLY (3 mL over 1 minute) in a patent, running IV, preferably a central line. For persistent hypoglycemia, consider longer-acting treatment for the duration of the active insulin. 1 tube contains 15 grams of glucose (net weight of tube = 37.5 grams., Routine sodium chloride 0.9% infusion 0923 ([facility] Hold - Provide r: Admin Adt - Reason: Transfer to a Procedural area)1016 ([facility] Unhold - Provider: Admin Adt) 10 mL/hr, at 10 mL/hr, Intravenous, CONT INUOUS PRN, Starting Sun04/20/19 at 023, Until Sun04/22/19 at 1917 Linked Groups Order Group 1: glucose (GLUTOSE) 40% oral gelJump to med 15-30 g, Buccal, EVERY 30 MIN PRN, Start ing Sun04/20/19 at 0231, Until Sun04/22/19 at 1917, Low blood sugar
For BG 50-70 mg/dL: Oral treatment preferred:?? If able to drink, give 120 mL Juic e or Regular (not diet) soda OR If NPO, give 15 gram glucose 40% oral gel massaged into buccal mucosa OR if unconscious or uncooperative, give 12.5 gram (25 mL) Dextrose 50% IV OR, if no IV access, give 1 mg Glucagon IM. For BG less than 50 mg/dL: Oral treatment preferred:?? If able to drink, give 240 mL Juice or Regular (not diet) soda OR If NPO, give 30 gram glucose 40% oral gel massage d in buccal mucosa OR if unconscious or uncooperative, give 25 gram (50 mL) Dextrose 50% IV OR, if no IV access, give 1 mg Glucagon IM. Recheck BG in 30 minutes. May repeat juice, gel, dextro se or glucagon once per episode. * *To avoid extravasation, push Dextrose 50% SLOWLY (3 mL over 1 minute) in a patent, running IV, preferably a central line. For persistent hypogly cemia, consider longer-acting treatment for the duration of the active insulin. 1 tube contains 15 grams of glucose (net weight of tube = 37.5 grams.
Routine Or dextrose 50% intravenous solution 25-50 mLJump to med 25-50 mL (12.5-25 g), Intravenous, EVERY 1 HOUR PRN, Starting Sun04/20/19 at 0231, Until Sun04/22/19 at 1917, Low blood sugar
For BG 50-70 mg/dL: Oral treatment preferred:?? If able to drink , give 120 mL Juice or Regular (not diet ) soda OR If NPO, give 15 gram glucose 40% oral gel massaged into buccal mucosa OR if unconscious or uncooperative, give 12.5 gram (25 mL) Dextrose 50% IV OR, if no IV access, give 1 mg Glucagon IM. &nb sp; For BG less than 50 mg/dL: Oral treatment preferred:?? If able to drink, give 240 mL Juice or Regular (not diet) soda OR If NPO, give 30 gram glucose 40 % oral gel massaged in buccal mucosa OR if unconscious or uncooperative, give 25 gram (50 mL) Dextrose 50% IV OR, if no IV access, give 1 mg Glucagon IM. Recheck BG in 30 minutes. May repeat juice, gel, dextrose or glucagon once pe r episode. To avoid extravasation, push Dextrose 50% SLOWLY (3 mL over 1 minute) in a patent, running IV, preferably a central line. For persistent hypoglycemia, consider longer -acting treatment for the duration of the active insulin.
Routine Or glucagon (human recombinant) injection SolR 1 mgJump to med 1 mg, Intramuscular, EVERY 1 HOUR PRN, S tarting 04/20/19 at 0231, Until 04/22/19 at 1918, Low blood sugar
For BG 50-70 mg/dL: Oral treatment preferred:?? If able to drink, give 120 mL Juice or Regular (not diet) soda OR If N PO, give 15 gram glucose 40% oral gel massaged into buccal mucosa OR if unconscious or uncooperative, give 12.5 gram (25 mL) Dextrose 50% IV OR, if no IV access, give 1 mg Glucagon IM. For BG l ess than 50 mg/dL: Oral treatment preferred:?? If able to drink, give 240 mL Juice or Regular (not diet) soda OR If NPO, give 30 gram glucose 40% oral gel mas saged in buccal mucosa OR if unconscious or uncooperative, give 25 gram (50 mL) Dextrose 50% IV OR, if no IV access, give 1 mg Glucagon IM. Recheck BG in 30 minutes. May repeat juice, gel, de xtrose or glucagon once per episode. &nb sp;To avoid extravasation, push Dextrose 50% SLOWLY (3 mL over 1 minute) in a patent, running IV, preferably a central line. For persistent hyp oglycemia, consider longer-acting treatm ent for the duration of the active insulin.
Routine documented in this encounter Care Teams Etiquette Teacher Relationship Specialty Start Date End Date None PCP - General 04/20/19 05/18/19 None documented as of this encounter
--- OUTSIDE RECORDS SUMMARY | 2022-07-21 01:20 | XMS_ITS | Encounter Summary ---
:1955 Author Organization [facility] [place] [place] [address] Care Team Providers Name Role Phone None Primary Care Provider Unavailable Reason for Visit Auth/Cert Specialty Diagnoses / Procedures Referred By Contact Refer red To Contact Diagnoses UGIB (upper gastrointestinal bleed) GI BLEED Procedures EMERGENCY IPI Referral ID Status Reason Start Date Expiration Date Visits Requ ested Visits Authorized [id number] 1 1 Encounter Details Date Type Department Care Team Description 04/20/2019 Anesthesia Event Gastroenterology at [facility] [place] Mushtaq Hobbs MD [facility] [place] [address] [facility] Ross Morales MD [facility] [place] [address] [place] [address] Anesthesia Record Procedure Summary Procedure Name Responsible Anesthesia Start Anesthesia Stop Time Anesthesiologist Time EGD, UPPER GI Mushtaq Hobbs MD 04/20/19 0904/20/19 1009 ENDOSCOPY (N/A Trunk) Events Date Time Event Comment 04/20/2019 0923 AN Verify 0923 Start 0923 An Start Data 0929 An Induction 0929 Anesthesia Ready 0931 An Intubation 0934 Procedure Start 0955 Extubation/LMA Out 0956 an stop data 0956 Transport 1003 Recovery or ICU Handoff Patient care was transferred to the destination unit staff after review of the patient's medica l history, current anesthetic/surgi ce status and plan, according to the Provider Handoff Checklist. 1009 Stop 1022 Name Total Propofol 150 mg Succinylcholine 100 mg Ondansetron 8 mg Dexamethasone 4 mg Sodium Chloride 0.9% 500 mL Agents Name O2 Air N2O Sevoflurane (et) Blood No blood administrations on file. Lines, Drains, and Airways Type Details Placement Removal PIV 04/20/19; 0236; basilic vein 04/20/19 0236 by Zenon rk, 04/22/19 1700 by (medial side of arm), left; 18 CLAU Rg, Cynthia Ferrari, RN gauge; other (see comments) (dc home); 04/22/19; 1700 PIV 04/20/19; 0519; basilic vein 04/20/19 0519 by Randolph byrd, 04/22/19 1500 by (medial side of arm), right; CLAU Rubi, Cynthia Ferrari, RN [id number] catheter system; 20 gauge; distraction; 1; other (see comments) (discharge home); 04/22/19; 1500 PIV 04/20/19; 0520; cephalic vein 04/20/19 0520 by Roberto wilson, 04/22/19 1500 by (lateral side of arm), left; CLAU Rubi, Cynthia Ferrari, RN [id number] catheter system; 20 gauge; other (see comments) (discharge home); 04/22/19; 1500 ETT Mask Ventilation: Not 04/20/19 0931 by [place], 04/20/19 0955 by Attempted (0); ETT Type: Sina Keith, ARASELI Choudhary , Sina Keith CRNA Cuffed, Oral; ETT Size: 7.5 mm; Mac Blade: 3; Notes: Asleep, Pre-O2, RSI, Cricoid Pressure, Stylette; Attempts: 1; Laryngoscopy Grade: 1; ETT Placement Verified By: Auscultation, Capnometry; Secured at Teeth: 21 cm; Inserted by: Lynn MARX documented in this encounter Social History Tobacco [...] encounter OR Notes Anesthesia Postprocedure Evaluation - Mushtaq Hobbs MD - 04/20/2019 10:21 AM EDT Department of Anesthesiology Post-procedure Note Patient: Benjamín Henry Procedure Summary Date: 04/20/19 Room / Location: [facility] ENDOSCOPY Anesthesia Start: 922 Anesthesia Stop: Procedures: EGD, UPPER GI ENDOSCOPY (N/A Trunk) EGD, W BAND LIGATION OF ESOPHAGEAL/GASTRIC VARICES Diagnosis: (hematemesis) Surgeon: Jamie Avalos MD Responsible Provider: Mushtaq Hobbs MD Anesthesia Type: general ASA Status: 3 - Emergent All Anesthesia Providers: Anesthesiologist: Mushtaq Hobbs MD PARAPROFESSIONAL AIDE: Sina Choudhary CRNA Vitals Value Taken Time BP 143/83 04/20/2019 10:17 AM Temp 36.5 ??C (97.7 ??F) 04/20/2019 10:15 AM Pulse 83 04/20/2019 10:20 AM Resp 17 04/20/2019 10:20 AM SpO2 97 % 04/20/2019 10:20 AM Pain Level Vitals shown include unvalidated device data. Patient Location: ICU Level of Consciousness: Conscious but Sleepy Pain Management: Satisfactory Analgesia PONV: None Cardiovascular Status: Hemodynamically Stable Respiratory Status: Stable Respiratory Status and Supplemental O2 (NC or FM) Postoperative Fluid Status: Intravascular EUvolemia Possible Anesthetic Complications: NONE apparent at time of evaluation Final Primary Anesthesia Type: General (The anesthetic type performed was the same as planned.) Comments: Anesthesia Preprocedure Evaluation - Dana Jordan MD - 04/20/2019 8:38 AM EDT Images from the original note were not included. Pre-Anesthesia Evaluation for: Benjamín Henry a 64 y.o. male. Procedure(s): EGD, UPPER GI ENDOSCOPY Patient Active Problem List Diagnosis ??? UGIB (upper gastrointestinal bleed) ??? Cirrhosis, alcoholic ??? Esophageal varices Past Medical History: Diagnosis Date ??? Alcohol abuse ??? Cirrhosis, alcoholic ??? Esophageal varices ??? HTN (hypertension) No past surgical history on file. Social History Tobacco Use ??? Smoking status: Former Smoker Types: Cigarettes Last attempt to quit: 04/20/2012 Years since quittin.0 ??? Smokeless tobacco: Never Used Substance Use [...] been reviewed. Physical Exam: Most Recent Vitals: 04/20/19 0820 BP: Pulse: 76 Resp: 15 Temp: SpO2: 100% Body mass index is 29.55 kg/m??. Height: 176.5 cm (5' 9.5) Weight: 92.1 kg (203 lb 0.7 oz) Airway Assessment: Mallampati: II TM distance: >3 FB Neck ROM: full Cardiovascular Assessment: cardiovascular exam normal Pulmonary Assessment: pulmonary exam normal Dental Assessment: Misc Assessment: IV access: Peripheral line Anesthesia Plan: ASA 3 emergent general, with a(n) intravenous induction 64 y.o. male with hx of alcoholic cirrhosis, previous variceal bleeds and current alcohol abuse presented w/ hematemesis and melena, hgb 6.3. Scheduled for EGD. Anesthetic History: no records available Allergies reviewed Labs reviewed Exercise tolerance: Greater than 4 METS EKG: pending Echocardiogram: none on file NPO Status: appropriate Anesthetic Plan: GA w/ ETT Standard ASA monitoring PIV access Dana Jordan MD 04/20/2019 Region - Other Informed Consent: Anesthetic plan and risks discussed with patient. Use of blood products discussed with patient who consented to blood products. Plan discussed with resident. PAT Clinic Note documented in this encounter Miscellaneous Notes Addendum Note - Sina Choudhary CRNA - 04/20/2019 10:51 AM EDT Addendum created 04/20/19 1051 by Sina Choudhary CRNA Intraprocedure Event edited, Intraprocedure Flowsheets edited documented in this encounter Plan of Treatment Scheduled Procedures Name Priority Associated Diagnoses Date/Time EGD, UPPER GI ENDOSCOPY Alcoholic cirrhosis, uns pecified whether ascites present Portal hypertension documented as of this encounter Visit Diagnoses Not on filedocumented in this encounter Administered Medications Inactive Administered Medications - up to 3 most recent administrations Medication Order MAR Action Action Date Dose Rate Site dexamethasone (DECADRON) injection Given 04/20/2019 9:43 AM EDT 4 mg PRN, Starting on 04/20/19 at 0943, Until 04/20/19 at 1022, Anesthesia Intra-op, Routine ondansetron (ZOFRAN) injection Given 04/20/2019 9:36 AM EDT 8 mg PRN, Starting on 04/20/19 at 0936, Until 04/20/19 at 1022, Anesthesia Intra-op, Routine propofol (DIPRIVAN) 10 mg/mL bolus injection Given 9:29 AM EDT 150 mg (Anesthesia) PRN, Starting on 04/20/19 at 0929, Until 04/20/19 at 1022, Anesthesia Intra-op sodium chloride 0.9% infusion New Bag 04/20/2019 9:23 AM EDT CONTINUOUS PRN, Starting on 04/20/19 at 0923, Until 04/20/19 at 1022, Anesthesia Intra-op succinylcholine chloride (Quelicin) inje ction Given 04/20/2019 9:30 AM EDT 100 mg PRN, Starting on 04/20/19 at 0930, Until 04/20/19 at 1022, Anesthesia Intra-op, Routine documented in this encounter Care Teams Art Therapy Specialist Relationship Specialty Start Date End Date None PCP - General 04/20/19 05/18/19 None documented as of this encounter
--- OUTSIDE RECORDS SUMMARY | 2022-07-21 01:20 | XMS_ITS | Encounter Summary ---
:1955 Author Organization [facility] [place] [address] Care Team Providers Name Role Phone None Primary Care Provider Unavailable Encounter Details Date Type Department Care Team Description 04/25/2019 Telephone Gastroenterology at [facility] [place] [facility] Lopez [facility] [place] [address] Social History Tobacco Use Types Packs/Day Years [...] Notes Telephone Encounter - Yin Lopez - 04/25/2019 3:55 PM EDT Left message for patient to set up follow up egd for 05/[address] Bledsoe at 12:[address] Maier patient needs an egd. Case in chart. documented in this encounter Plan of Treatment Scheduled Procedures Name Priority Associated Diagnoses Date/Time EGD, UPPER GI ENDOSCOPY Alcoholic cirrhosis, uns pecified whether ascites present Portal hypertension documented as of this encounter Visit Diagnoses Not on filedocumented in this encounter Care Teams Machine Bander And Cellophaner Helper Relationship Specialty Start Date End Date None PCP - General 04/20/19 05/18/19 None documented as of this encounter
--- OUTSIDE RECORDS SUMMARY | 2022-07-21 01:20 | XMS_ITS | Encounter Summary ---
:1955 Author Organization [facility] [place] [address] Care Team Providers Name Role Phone None Primary Care Provider Unavailable Reason for Visit Auth/Cert Specialty Diagnoses / Procedures Referred By Contact Refer red To Contact Diagnoses UGIB (upper gastrointestinal bleed) GI BLEED Procedures EMERGENCY IPI Referral ID Status Reason Start Date Expiration Date Visits Requ ested Visits Authorized [id number] 1 1 Encounter Details Date Type Department Care Team Description 04/20/2019 Surgery Gastroenterology at [facility] Jamie Avalos, EGD, UPPER GI [facility] [place] [address] [facility] [phone] [place], [place] [address] Social History Tobacco Use Types [...] Sign Reading Time Taken Comments Blood Pressure 95/57 04/20/2019 11:00 PM EDT Pulse 66 04/20/2019 11:00 PM EDT Temperature 36.8 ??C (98.2 ??F) 04/20/2019 10:00 PM EDT Respiratory Rate 16 04/20/2019 11:00 PM EDT Oxygen Saturation 100% 04/20/2019 11:00 PM EDT Inhaled Oxygen Concentration - - [...] care with a PCP; a referral to [facility] has been provided. - The patient will [...] History of Presentation: Patient initially presented to [facility] for melena and hematemesis where he was found to have a hemoglobin of 7.3. He would be given a single unit of pRBC, IV PPI, 2L NS, and started on octreotide gtt prior to transfer for EGD. Upon arrival to [facility] early this morning, patient would receive an [...] who was admitted to the MICU from [facility] ED on 04/20??for melena and hematemesis 2/2 [...] Important Studies and Lab Data: Recent Labs 04/22/19 0430 04/21/19 0328 04/20/19 2054 04/20/19 1430 04/20/19 1034 WBC 6.6 8.2 7.6 5.9 8.0 HGB 7.7* 8.1* 8.3* 8.5* 8.7* PLATELET 97* 94* 98* 87* 85* Recent Labs 04/22/19 0430 04/21/19 0328 04/20/19 0240 NA 138 137 139 K 4.1 4.0 4.5 CL 110* 108* 108* CO2 23 23 21* BUN 15 15 22* CREATININE 0.87 0.71* 0.76* GLUCOSE 96 96 110 Recent Labs 04/22/19 0430 04/21/19 0328 04/20/19 0240 CALCIUM 7.0* 7.0* 7.2* MAGNESIUM 0.79 0.88 0.68* PHOS 2.1* 1.9* 2.8 No results for input(s): CK, TROPONINT in the last 168 hours. Recent Labs 04/22/1942904/21/1932704/20/19 0240 AST 67* 52* 51* ALT 29 27 26 ALKPHOS 56 59 74 BILITOT 1.2 2.1* 1.4* BILIDIR 0.7* 1.2* 0.7* Recent Labs 04/21/1932704/20/19 20504/20/19 1430 INR 1.6 1.6 1.6 No results [...] 1:00 PM LAB, THREE L Lab 3L [facility] Arrive at: Flight Hostess Area 05/12/2019 2:00 PM Jamie Avalos MD Gastroenterology at [place] Arrive at: Flight Hostess Area 4L [phone] Future Orders Complete By Expires Referral to General Internal Medicine [[id number] Custom] As directed Process Instructions: If no progress note charted, please enter Clinical details in comments. Scheduling Instructions: Questions: My question or request is: Establish Primary Care General Instructions None For questions regarding this document or issues relating to this hospitalization on the Medical Service, please contact your inpatient physician through the [facility] Stonework Supervisor . Issues after hours and on weekends will be handled by the Boilermaker Fitter staff on-call. documented in this encounter Discharge [...] antibiotics/Ciprofloxacin until April 25, 2019. Follow-Up Appointments [facility] will call you to set you up with a Primary Care Provider/general doctor. Future Appointments Date Time Provider Department Center 05/12/2019 1:00 PM LAB, THREE L Lab 3L [facility] 05/12/2019 2:00 PM Jamie Avalos MD Leb Gastro [facility] Date and Time Provider and Specialty Location Need to be scheduled None , PCP None None Your Inpatient Doctor(s) at [facility]: Ratna Mcclian MD - Attending Physician Rober Jimenez MD - Resident Physician Mehdi Pearson MD - Rigging And Controls Aircraft Mechanic Physician Liana Betancourt - Medical Student Your Primary Care Provider: None None None For questions regarding this document or issues relating to this hospitalization on the Medical Service, please contact your inpatient physician through the [facility] Stonework Supervisor . Issues after hours and on weekends will be handled by the Hospitalist staff on-call. AttachmentsThe following attachments cannot be sent through Care Everywhere. Esophageal Varices (Stateless)GI Bleed (Stateless)Liver Disease Diet (Stateless)Upper GI Bleed (Stateless)documented in this encounter Medications at Time of [...] spent >30 minutes (Day of Discharge Code 24554) involved in the final examination of the patient, discussion of the hospital stay, instructions for continuing care to all relevant caregivers, and preparation of discharge records, prescriptions and referral forms. Plans ? Discharge to home ? Follow-up scheduled with GI ? Please see the Discharge Summary for complete details of any medication changes and additional plans. Aren Nava MD - 04/22/2019 10:54 AM EDT Interventional [...] Aren Galvez MD Fellow, Interventional Radiology Pager [phone] XT Cynthia Nunes RN - 04/22/2019 9:47 AM [...] who was admitted to the MICU from [facility] ED on 04/20 for GI bleed.?? 24 [...] 0.68* PHOS 2.1* 1.9* 2.8 Recent Labs 04/22/1942904/21/19 0328 04/20/19 0240 PROT 5.5* 5.8* 5.9* ALBUMIN 2.2* [...] who was admitted to the MICU from [facility] ED on 04/20 for hematemesis 2/2 variceal [...] 11/2018 never banded), who initially presented to [facility] with several days of melena followed by hematemesis and was transferred to [facility] ICU for further management who is now s/p banding (4 total) of large esophageal varices and GOV1 on 04/20. Interval History: --No acute overnight events --Hemoglobin [...] 11/2018 never banded), who initially presented to [facility] with several days of melena followed byhematemesis and was transferred to [facility] ICU for further management who is now [...] M.D. Fellow in Gastroenterology and Hepatology Pager #[phone] 04/22/2019 Attending Addendum: I have seen and [...] who was admitted to the MICU from [facility] ED on 04/20 for GI bleed.?? 24 [...] noted. CN II-XII intact Labs: Recent Labs 04/21/1932704/20/19 20504/20/19 1430 WBC 8.2 7.6 5.9 HGB 8.1* [...] who was admitted to the MICU from [facility] ED on 04/20 for hematemesis 2/2 variceal [...] Mehdi Pearson MD PGY1, Internal Medicine Pager [phone] Associated attestation - Ratna Mcclain MD - [...] of two midnights or is on the [facility] inpatient only procedure list (status C) due [...] 11/2018 never banded), who initially presented to [facility] with several days of melena followed by hematemesis and was transferred to [facility] ICU for further management who is now [...] 11/2018 never banded), who initially presented to [facility] with several days of melena followed byhematemesis and was transferred to [facility] ICU for further management who is now [...] admission 06/2018), He does not have a nozzle tender but his PCP ordered an EGD this [...] M.D. Fellow in Gastroenterology and Hepatology Pager #[phone] 04/21/2019 Attending Addendum: I have seen and [...] y.o. year old male was admitted to [facility] with a GI bleed. I have personally examined the patient and reviewed his medical records and radiographic studies. In brief, Mr. Henry has a history of alcoholic cirrhosis with known varices. He presented yesterday with melena and weakness, accompanied by one episode of hematemesis. On arrival at [facility], he was mildlyhypotensive and tachycardic, with a Hgb of 6.7 and a mildly elevated lactate. Since arrival at [facility], he has had a few BPs in [...] Thompson MD - 04/20/2019 5:14 AM EDT [facility] TeleICU Initial Assessment Note I established audio/visual communication with the patient's room, reviewed eDH, and discussed the patient's case with Pratik Rhodes APRN. History and Assessment: This 64 yo male w/ h/o alcoholic cirrhosis, previous variceal bleed and active EtOH use is being admitted w/ hematemesis and melena. It is most likely that he has a variceal bleed. [facility] found to have a Hgb of 7.3, plt-143, and INR of 1.5. He was given 1U PRBCs, Protonix, 2L of NS, and started on an octreotide gtt. Since transfer to [facility], he has had stable vitals, but did have a melenotic stool and his Hgb is 6.3. Plan: Continue octreotide, PPI bid, and will start ceftriaxone for prophylaxis. He is being given more blood w/ serial CBCs being followed. GI has been consulted for an EGD. CIWA for potential withdrawal. Venodynes for DVT prophyalxis. documented in this encounter H&P Notes Javed Salazar, CLAIRE - 04/21/2019 11:07 AM EDT Images from [...] 11/2018 never banded), who initially presented to [facility] with several days of melena followed by hematemesis and was transferred to [facility] ICU for further management who is now [...] ENDOSCOPY performed by Jamie Avalos MD at [facility] ENDOSCOPY ??? PRO UPPER GI ENDOSCOPY, LIGAT VARIX 04/20/2019 EGD, W BAND LIGATION OF ESOPHAGEAL/GASTRIC VARICES performed by Jamie Avalos MD at [facility] ENDOSCOPY Medications: Scheduled Meds: ??? melatonin [...] file Gets together: Not on file Attends denominational service: Not on file Active member of [...] who was admitted to the MICU from [facility] ED on 04/20 for GI bleed. CC: Hematemesis HPI Patient initially presented to [facility] for melena and hematemesis where he was found to have a hemoglobin of 7.3. He would be given a single unit of pRBC, IV PPI, 2L NS, and started on octreotide gtt prior to transfer for EGD. Upon arrival to [facility] early this morning, patient would receive an [...] file Gets together: Not on file Attends denominational service: Not on file Active member of [...] who was admitted to the MICU from [facility] ED on 04/20 for hematemesis 2/2 variceal [...] Code Mehdi Pearson MD PGY1, Internal Medicine [place] Team #[id number] 04/20/2019 Associated attestation - Ratna Mcclain MD [...] of two midnights or is on the [facility] inpatient only procedure list (status C) due to: variceal hemorrhage Hemoglobin stable after banding of esophogeal varices. Continue junreotide for total 72 hours (ie infusion set [...] who was admitted to the MICU from [facility] ED on 04/20 with a GI bleed. [...] the and attempted to drink a hard cideryesterday, but had difficulty keeping it down. He presented to the ED at [facility] where he was found to be mildly [...] Social History: Lives in rented housing in [place]. His brother Fr. Mark Henry is [...] air Physical Exam: General: Male patient in [facility] HEENT: Atraumatic, nomocephalic. Sclera anicteric and non-injected. [...] surrogate) Code Status: Full Disposition: ICU Anil Rhodes APRN April 20, 2019 Critical Care Green Team (pager [phone]) Dr. Umaña is the attending of record [...] Outcome: Ongoing (Interventions Implemented as Appropriate) 04/22/19 0566 Coping/Psychosocial Plan Of Care Reviewed With patient [...] discomfort while swallowing soft foods today @ 11/03, but reports that it subsides on its [...] known esophageal varices??(???11/2018??never banded), who initially presented??to [facility] with several days of melena followed by??hematemesis and was transferred to [facility] ICU for further management who is now s/p banding??(4 total)??of large esophageal varices and??GOV1 on 04/20. Patient has reportedly had 3 admits over the past 5 years for GIB. No history of HE. Patient remains hemodynamically stable without pressors. Received 2 units PRBCs yesterday but none since. ??Jvaed Salazar APRNDate of Service: 04/21/2019 11:07 AM Past Medical/Surgical History: Past Medical History: Diagnosis Date ??? Alcohol abuse ??? Cirrhosis, alcoholic ??? Esophageal varices ??? HTN (hypertension) Hospitalizations Within the Past 30 Days: See H&P Anticipated Length Of Stay (If known): Current Decision-Making Capacity: a,ox3 Advance Care Planning: none written States has brother Father Mark almaraz priest [phone] would be surrogate decision maker per [place] surrogate decision making law. Any patient receiving care at [facility] must abide by [place] law. The hierarchy for surrogate decision making [...] (i) The agent with financial power of workers compensation attorney or a conservator appointed in accordance with RSA 464-A. (j) The guardian of the patient???s estate. Current Coping/Education/Information Needs: CMbexplained VNA/SNF/Ipr /outpt services Current Functional Ability: ambulatory.on Room air,a,ox3 Functional Status Prior to Admission: 100%ADLindi/drives self/ no DME used Home Environment: [place] [facility] [address], alone,single Social & [...] Insurance: N/A Secondary Insurance: N/A Prescription Coverage: [facility] updated demo sheet Preferred Pharmacy: [facility] Primary Care Provider: No primary care provider on file. None Patient/Caregiver Goals of Treatment: declined services Potential Needs for Transition of Care: Rehab/SNF: declined Home Health: needs PCP DME: na Dialysis: na Community Resources: has [facility] Transportation: family Anticipated Barriers to Discharge/Special Considerations: active ETOH abuse w/cirrhosis,denies treatment options Assessment: 64yowm in w/ UGI Bleed w/ known cirrhoisis, active ETOH drinker has denied wanting SA cessation resources In past, declined services, STUDIO OPERATIONS MANAGER for SA cessation resources consult placed. Plan: A member of the Care Management team will continue to monitor progress, follow for continuity of care and assist with transition of care planning. Hilaria Sanders, RN Pager: [phone] ' Plan of Care - Kaylee Bain, PT - 04/21/2019 10:05 AM EDT Physical Therapy Evaluation Patient profile: Pt is a 64 y.o.??male??with a PMH significant for alcoholic cirrhosis (actively drinking), esophageal varices, HTN who was admitted to the MICU from [facility] ED on 04/20??for hematemesis 2/2 variceal bleed [...] ENDOSCOPY performed by Jamie Avalos MD at [facility] ENDOSCOPY ??? PRO UPPER GI ENDOSCOPY, LIGAT VARIX 04/20/2019 EGD, W BAND LIGATION OF ESOPHAGEAL/GASTRIC VARICES performed by Jamie Avalos MD at [facility] ENDOSCOPY Social History: Home set-up: Lives alone in an apartment above a garage with 1 FOS to enter with rail. 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 Baseline Mobility: Independent Precautions/Special Considerations: [...] Therapy: 15(eval) Kaylee Bain, PT, DPT Pager: [phone] Physical Therapy Inpatient Rehabilitation Department Plan of [...] Outcome: Ongoing (Interventions Implemented as Appropriate) 04/21/19 0637 Restraint Interventions Safety Promotion/Fall Prevention activity supervised Activity Activity Type activity adjusted per tolerance Activity Assistance Provided independent Problem: Skin Integrity Impairment, Risk/Actual (Adult) Goal: Identify Related Risk Factors and Signs and Symptoms Related risk factors and signs and symptoms are identified upon initiation of Human Response Clinical Practice Guideline (CPG) Outcome: Ongoing (Interventions Implemented as Appropriate) 04/21/19 06 Skin Integrity Impairment, Risk/Actual Skin Integrity Impairment, [...] Avalos MD - 04/20/2019 11:15 AM EDT [facility] Operative Note Patient Name: Benjamín Henry : [id number] MR#: [id number] Case Date: 04/20/2019 Surgeon: Surgeon(s) and Role: [...] & Hepatology Inpatient Consultation Benjamín Henry 1955 [id number] PCP: No primary care provider on file. Date of Admission: 04/20/2019 ( Hospital Day 0 days ) Attg: Zeus Umaña MD Source: patient Reason for Consult: hematemesis History of Present Illness: 64-year-old man with alcohol use disorder, ETOH cirrhosis, and known esophageal varices, who went [facility] last night with hematemesis. He reports several days of melena and then maroon stools. States he had an EGD in November with varices, but has never been banded before. He continues to actively drink alcohol. He went to the ED at [facility] where he was hypotensive, tachycardic, Hgb 7.3. He was given 1 unit PRBCs, 1L NS, started on octreotide and PPI, and transferred to [facility] for further management. On arrival to [facility] MICU, he received 2 units of PRBCs. [...] file Gets together: Not on file Attends denominational service: Not on file Active member of [...] 04/20/2019 0732 Last data filed at 04/20/2019 0728 Gross per 24 hour Intake 590.5 ml [...] cirrhosis, and known esophageal varices, who went [facility] ED last night with hematemesis concerning for [...] LAB AM EDT procedure are i n ([facility] the results section. ABO/RH TYPING STAT 04/20/2019 [...] section. TYPE AND SCREEN STAT 04/20/2019 2:40 ([facility]/P/KATHY) AM EDT PHOSPHORUS STAT 04/20/2019 2:40 Results [...] please contact e number below. ? Narrative 04/22/2019 3:05 PM EDT EXAMINATION: REQUEST [...] report, please contact th e number below. Ratna Mcclain MD IMG OUTSIDE INTERPRETATION O RDERABLES POCT Glucose (04/22/2019 11:37 AM EDT) athologist Signature POC Glucose 96 65 - 199 [facility] mg/dL [facility] Comment: Supplemental ranges: <140 mg/dL before meals <180 mg/dL all other times of the day Specimen Anatomical Collection Method Collection Time Receive d Time (Source) Location / / Volume Laterality Blood specimen 04/22/2019 11:37 9 (specimen) AM EDT 11:37 AM EDT Ratna Mcclain MD POINT OF CARE TEST ORDERABLE S Performing Organization Address City/State/[place] [address] POCT Glucose (04/22/2019 8:22 AM EDT) athologist Signature POC Glucose 90 65 - 199 [facility] mg/dL [facility] Comment: Supplemental ranges: <140 mg/dL before meals <180 mg/dL all other times of the day Specimen Anatomical Collection Method Collection Time Receive d Time (Source) Location / / Volume Laterality Blood specimen 04/22/2019 8:22 AM 019 8:22 (specimen) EDT AM EDT Ratna Mcclain MD POINT OF CARE TEST ORDERABLE S Performing Organization Address City/State/[place] [address] Differential, Automated (04/22/2019 4:30 AM EDT) athologist Signature Neutrophils % 66.8 % [facility] Neutr Abs (ANC) 4.42 1.70 - [facility] 6.10 [facility] x10(3)/[facility] LABORATORY Lymphocytes % 20.4 % [facility] Lymphocytes Abs 1.4 0.9 - 3.2 [facility] x10(3)/[facility] LABORATORY Monocytes % 7.9 % [facility] Monocyte Abs 0.5 0.3 - 0.9 [facility] x10(3)/[facility] LABORATORY Eosinophils % 3.2 % [facility] Eosinophils Abs 0.2 0.0 - 0.4 [facility] x10(3)/[facility] LABORATORY Basophils % 1.1 % [facility] Basophils Abs 0.1 0.0 - 0.1 [facility] x10(3)/[facility] LABORATORY Immature Gran % 0.60 % [facility] Comment: Immature granulocytes(IG's)percentage an d absolute count will include metamyelocytes, myelocytes, and promyelo cytes. Blood smears from CBCs yielding IG's will be scanned manually for concor dance. If this scan disagrees with the automated IG or if promyelocytes are not ed, a manual differential will be performed. Haily Gran Abs 0.04 0.00 - 0.04 x10(3)/[facility] LABORATORY Specimen Anatomical Collection Method Collection Time Receive d Time (Source) Location / / Volume Laterality Blood specimen 04/22/2019 4:30 AM 019 4:36 (specimen) EDT AM EDT Resulting Agency Comment Spec In Lab Josh Mao MD HEMATOLOGY ORDERABLES Performing Organization Address City/State/[place] [address] (ABNORMAL) Hemogram (04/22/2019 4:30 AM EDT) Analysis Performed At Patho logist Time Signature WBC 6.6 4.0 - 9.5 [facility] x10(3)/[facility] LABORATORY RBC 3.19 (L) 4.58 - [facility] x10(6)/[facility] LABORATORY Hemoglobin 7.7 (L) 13.7 - [facility] 16.5 gm/dL [facility] Hematocrit 25.0 (L) 40.5 - [facility] 48.5 % [facility] MCV 78.4 (L) 82.9 - [facility] 93.1 [facility] LABORATORY MCH 24.1 (L) 27.5 - [facility] 32.1 pg [facility] MCHC 30.8 (L) 32.0 - [facility] 35.7 gm/dL [facility] Platelets 97 (L) 145 - 357 [facility] x10(3)/[facility] LABORATORY RDWSD 58.3 (H) 36.0 - [facility] 45.0 [facility] LABORATORY RDWCV 21.3 (H) 11.4 - [facility] 13.8 % [facility] LABORATORY MPV 10.9 7.6 - 12.9 [facility] LABORATORY nRBC % Auto 0.0 % [facility] LABORATORY nRBC Abs Auto 0.000 0.000 - [facility] 0.000 [facility] x10(3)/[facility] LABORATORY Specimen Anatomical Collection Method Collection Time Receive d Time (Source) Location / / Volume Laterality Blood specimen 04/22/2019 4:30 AM 019 4:36 (specimen) EDT AM EDT Resulting Agency Comment Spec In Lab Josh Mao MD HEMATOLOGY ORDERABLES Performing Organization Address City/State/[place] [address] (ABNORMAL) Hepatic Function Panel (04/22/2019 4:30 AM EDT) athologist Signature Total Protein 5.5 (L) 6.1 - 8.0 [facility] gm/dL [facility] Albumin 2.2 (L) 3.2 - 5.2 [facility] gm/dL [facility] AST 67 (H) 0 - 39 [facility] unit/L [facility] ALT 29 0 - 55 [facility] unit/L [facility] Alk Phos 56 40 - 130 [facility] unit/L [facility] Total 1.2 0.2 - 1.3 [facility] Bilirubin mg/dL [facility] Bili, Direct 0.7 (H) 0.0 - 0.3 [facility] mg/dL [facility] HOSPITAL LABORATORY Specimen Anatomical Collection Method Collection Time Receive d Time (Source) Location / / Volume Laterality Blood specimen 04/22/2019 4:30 AM 019 4:36 (specimen) EDT AM EDT Resulting Agency Comment Spec In Lab Bam Schrader MD CHEMISTRY ORDERABLES Performing Organization Address City/[facility]/ZIP Code Phon e Number [address] (ABNORMAL) Phosphorus (04/22/2019 4:30 AM EDT) athologist Signature Phosphorus 2.1 (L) 2.5 - 4.5 [facility] mg/dL [facility] LABORATORY Specimen Anatomical Collection Method Collection Time Receive d Time (Source) Location / / Volume Laterality Blood specimen 04/22/2019 4:30 AM 019 4:36 (specimen) EDT AM EDT Resulting Agency Comment Spec In Lab Bam Schrader MD CHEMISTRY ORDERABLES Performing Organization Address City/[facility]/ZIP Code Phon e Number [address] Magnesium (04/22/2019 4:30 AM EDT) athologist Signature Magnesium 0.79 0.69 - 1.07 [place] mmol/L [facility] LABORATORY Specimen Anatomical Collection Method Collection Time Receive d Time (Source) Location / / Volume Laterality Blood specimen 04/22/2019 4:30 AM 019 4:36 (specimen) EDT AM EDT Resulting Agency Comment Spec In Lab Bam Schrader MD CHEMISTRY ORDERABLES Performing Organization Address City/State/[place] [address] (ABNORMAL) Basic Metabolic Panel (non-fasting) (04/22/2019 4:30 AM EDT) athologist Signature Glucose Lvl 96 65 - 199 [facility] mg/dL [facility] LABORATORY Comment: Diabetes: >=200 mg/dL plus symp toms BUN 15 10 - 20 mg/dL [facility] LABORATORY Creatinine 0.87 0.80 - 1.50 mg/dL [facility] LABORATORY Sodium 138 135 - 145 mmol/L [facility] LABORATORY Potassium 4.1 3.5 - 5.0 mmol/L [facility] LABORATORY Comment: Please note: ??Patients with WBC >100,00 0 may have falsely elevated Potassium levels. ??For accurate Potassium quantif ication in these patients send serum separator tube (gold top) for subsequent determinations. ??Contact the Clinical Chemistry Laboratory if there are any qu estions. Chloride 110 (H) 98 - 107 mmol/L [facility] LABORATORY CO2 23 22 - 31 mmol/L [facility] LABORATORY Anion Gap 5 5 - 15 mmol/L [facility] LABORATORY Calcium 7.0 (L) 8.5 - 10.5 mg/dL [facility] LABORATORY Estimated GFR 91 >=60 mL/min/1.73 m?? [facility] LABORATORY Comment: The eGFR was calculated using the CKD-EP I equation. As with all creatinine based estimates of kidney function, eGFR values calculated with the CKD-EPI equation are not accurate in patients wi th acute kidney failure, extremes of body mass or the acutely ill. [email or web address] CITYnkf eGFR 106 >=60 mL/min/1.73 m?? [facility] LABORATORY Comment: The eGFR was calculated using the CKD-EP I equation. As with all creatinine based estimates of kidney function, eGFR values calculated with the CKD-EPI equation are not accurate in patients wi th acute kidney failure, extremes of body mass or the acutely ill. [email or web address] Specimen Anatomical Collection Method Collection Time Receive d Time (Source) Location / / Volume Laterality Blood specimen 04/22/2019 4:30 AM 019 4:36 (specimen) EDT AM EDT Resulting Agency Comment Spec In Lab Bam Schrader MD CHEMISTRY ORDERABLES Performing Organization Address City/[facility] [place] [address] (ABNORMAL) Hepatitis C Antibody (04/22/2019 4:30 AM EDT) Patholo gist Method Time Signature Hepatitis C Positive (A) Negative [facility] LABORATORY Specimen Anatomical Collection Method Collection Time Receive d Time (Source) Location / / Volume Laterality Blood specimen 04/22/2019 4:30 AM 2 019 4:36 (specimen) EDT AM EDT Resulting Agency Comment Spec In Lab Ratna Mcclain MD IMMUNOLOGY ORDERABLES Performing Organization Address City/[facility] [place] [address] Hepatitis B Surface Antigen (04/22/2019 4:30 AM EDT) Analysis Performed At Patho logist Time Signature HepB Surface Negative Negative [facility] LABORATORY Specimen Anatomical Collection Method Collection Time Receive d Time (Source) Location / / Volume Laterality Blood specimen 04/22/2019 4:30 AM 019 4:36 (specimen) EDT AM EDT Resulting Agency Comment Spec In Lab Ranta Mcclain MD CHEMISTRY ORDERABLES Performing Organization Address City/[facility] [place] [address] Hepatitis B Surface Antibody (04/22/2019 4:30 AM EDT) P athologist Signature HepB Surface <3.5 IU/L [facility] Ab Quant [facility] LABORATORY Comment: HepB Surface Ab Quant: Unvaccinated: < 8.5 IU/L Vaccinated: > 11.5 IU/L HepB Surface Ab Negative [facility] LABORATORY Comment: Patient is presumed to be not vaccinated or immune to HBV infection. Expected Results: Vaccinated: Positive Unvaccinated: Negative Specimen Anatomical Collection Method Collection Time Receive d Time (Source) Location / / Volume Laterality Blood specimen 04/22/2019 4:30 AM 019 4:36 (specimen) EDT AM EDT Resulting Agency Comment Spec In Lab Ratna Mcclain MD IMMUNOLOGY ORDERABLES Performing Organization Address [facility] Phon e Number [address] Hepatitis B Core Antibody, IgM (04/22/2019 4:30 AM EDT) Analysis Performed At Patho logist Time Signature Hep B Core IgM Negative Negative [facility] LABORATORY Specimen Anatomical Collection Method Collection Time Receive d Time (Source) Location / / Volume Laterality Blood specimen 04/22/2019 4:30 AM 019 4:36 (specimen) EDT AM EDT Resulting Agency Comment Spec In Lab Ratna Mcclain MD IMMUNOLOGY ORDERABLES Performing Organization Address City/[facility] [place] [address] Hepatitis B Core Antibody, Total (04/22/2019 4:30 AM EDT) Analysis Performed At Patho logist Time Signature Hep B Core Ab Negative Negative [facility] LABORATORY Specimen Anatomical Collection Method Collection Time Receive d Time (Source) Location / / Volume Laterality Blood specimen 04/22/2019 4:30 AM 019 4:36 (specimen) EDT AM EDT Resulting Agency Comment Spec In Lab Ratna Mcclain MD CHEMISTRY ORDERABLES Performing Organization Address [facility] [place] [address] POCT Glucose (04/22/2019 4:25 AM EDT) P athologist Signature POC Glucose 97 65 - 199 [place] mg/dL [facility] LABORATORY Comment: Supplemental ranges: <140 mg/dL before meals <180 mg/dL all other times of the day Specimen Anatomical Collection Method Collection Time Receive d Time (Source) Location / / Volume Laterality Blood specimen 04/22/2019 4:25 AM 019 4:25 (specimen) EDT AM EDT Ratna Mcclain MD POINT OF CARE TEST ORDERABLE S Performing Organization Address City/[facility]/[place] [address] POCT Glucose (04/21/2019 9:15 PM EDT) athologist Signature POC Glucose 109 65 - 199 [facility] LABORATORY Comment: Supplemental ranges: <140 mg/dL before meals <180 mg/dL all other times of the day Specimen Anatomical Collection Method Collection Time Receive d Time (Source) Location / / Volume Laterality Blood specimen 04/21/2019 9:15 PM 019 9:15 (specimen) EDT PM EDT Ratna Mcclain MD POINT OF CARE TEST ORDERABLE S Performing Organization Address City/[facility]/[place] [address] ECHOCARDIOGRAM COMPLETE (04/21/2019 4:25 PM EDT) athologist Signature EF [facility] Anatomical Region Laterality Modality Other Specimen (Source) Anatomical Location Collection Method / Collectio n Time Received Time / Laterality Volume 04/21/2019 Narrative 04/21/2019 4:43 PM EDT Procedure: ?Transthoracic Echocardiogram Patient: ?HAHR EDWARD P ? (Age): 1955(64y) Med Rec#: ? [id number] ?Sex: ?M ? Site Loc: ? [facility] ?Ht / Wt: ??176(cm)/92(kg) Pt. Loc: ?ICU ? BSA: ?2.08 Study Date: ?? 04/21/2019 ?Pt. Type: Inpatient Tape: ? Referring: KAVITA Reading: Seng Meier ([id number]) Benzene Washer: Rebekah Katz Diagnosis: *Gastrointestinal hemorrhage, unspecifi ed [...] E-wave Vmax ?1.1 ?m/sec ? MV deceleration [id number] ? msec ? MV A-wave Vmax ?0.8 [...] ? Mid-Inferior ?Normal ? Mid-Inferoseptal ?Normal ? [place]-Septal ? Normal ? [place]-Anterior ? Normal ? [place]-Lateral ?Normal ? [place]-Inferior ? Normal ? [place]-Tip ?Normal ? This report has been electronically sign ed by: _ Seng Meier MD ? 04/21/2019 16:42:18 Images reviewed and interpretation verif ied [facility] Cardiac Ultrasound Laboratory Procedure Note Seng Meier MD - 04/21/2019Forma tting of this note might be different from the original. Procedure: Transthoracic Echocardiogram Patient: FAINA Mejia (Age): [birth year](64y) Med Rec#: [id number] Sex: M Site Loc: [facility] Ht / Wt: 176(cm)/92(kg) Pt. Loc: ICU BSA: 2.08 Study Date: 04/21/2019 Pt. Type: Inpatie nt Tape: Referring: [facility] Reading: Seng Meier ([id number]) Benzene Washer: Rebekah Katz Diagnosis: *Gastrointestinal hemorrhage, unspecifi ed [...] MV E-wave Vmax 1.1 m/sec MV deceleration [id number] msec MV A-wave Vmax 0.8 m/sec MV [...] Normal Mid-Posterolateral Normal Mid-Inferior Normal Mid-Inferoseptal Normal [place]-Septal Normal [place]-Anterior Normal [place]-Lateral Normal [place]-Inferior Normal [place]-Tip Normal This report has been electronically sign ed by: _ Seng Meier MD 04/21/2019 16:42: 18 Images reviewed and interpretation verif ied [facility] Cardiac Ultrasound Laboratory Ratna Mcclain MD ECHO ORDERABLES POCT Glucose (04/21/2019 3:27 PM EDT) athologist Signature POC Glucose 126 65 - 199 [facility] mg/dL [facility] LABORATORY Comment: Supplemental ranges: <140 mg/dL before meals <180 mg/dL all other times of the day Specimen Anatomical Collection Method Collection Time Receive d Time (Source) Location / / Volume Laterality Blood specimen 04/21/2019 3:27 PM 019 3:27 (specimen) EDT PM EDT Ratna Mcclain MD POINT OF CARE TEST ORDERABLE S Performing Organization Address City/[facility]/[place] [address] POCT Glucose (04/21/2019 12:13 PM EDT) P athologist Signature POC Glucose 96 65 - 199 [facility] LAB[facility]ORY Comment: Supplemental ranges: <140 mg/dL before meals <180 mg/dL all other times of the day Specimen Anatomical Collection Method Collection Time Receive d Time (Source) Location / / Volume Laterality Blood specimen 04/21/2019 12:13 9 (specimen) PM EDT 12:13 PM EDT Ratna Mcclain MD POINT OF CARE TEST ORDERABLE S Performing Organization Address City/[facility]/[place] [address] US Abdomen Limited (04/21/2019 [...] Electronically signed by: Nidhi harrell MD, [facility] [place] ([phone]), at 11:26 AM ?Nidhi Batres, Staff Physician Electronically Signed Final Report ?? 11:32 am Narrative 04/21/2019 11:32 AM EDT Abdominal ? (Signed Final 04/21/2019 11:32 am) PATIENT INFO: ID #: ? [id number] ?: ??[birth year] (64 yrs) Name: ? BENJAMÍN HENRY ?Visit Date: 04/21/2019 11:19 am PERFORMED BY: Performed By: ? Syd Garrett RDMS Attending: ?Medardo MALDONADO, Shankar Carpenter. Referred By: ?RATNA MCCLAIN Location: ? [place] SERVICE(S) PROVIDED: ??UABDLIM - Abdominal Limited Survey Si ngle ? [id number] ??Organ or Quadrant - [id number] INDICATIONS: ??64yo with known ETOH abuse admitted w ith ??variceal hemorrhage., ? ascities per team FLUID COLLECTIONS: Ascites present. Procedure Note Nidhi Batres MD - 04/21/2019Forma tting of this note might be different from the original. Abdominal (Signed Final 04/21/2019 11:3 2 am) PATIENT INFO: ID #: [id number] : 55 (64 y rs) Name: BENJAMÍN HENRY Visit Date: 07/29/2 019 11:19 am PERFORMED BY: Performed By: Syd Garrett RDMS Attending: Medardo MALDONADO, Nidhi Koehler Referred By: RATNA MCCLAIN Location: [place] SERVICE(S) PROVIDED: UABDLIM - Abdominal Limited Survey [place] [id number] Organ or Quadrant - [id number] INDICATIONS: 64yo with known ETOH abuse admitted [...] below. Electronically signed by: Nidhi harrell MD, [facility] ([phone]), at 11:26 AM Nidhi Batres, Staff Physician Electronically Signed Final Report 04/21 11:32 am Ratna Mcclain MD IMG US GEN ORDERABLES POCT Glucose (04/21/2019 7:45 AM EDT) athologist Signature POC Glucose 110 65 - 199 [facility] mg/dL [facility] LABORATORY Comment: Supplemental ranges: <140 mg/dL before meals <180 mg/dL all other times of the day Specimen Anatomical Collection Method Collection Time Receive d Time (Source) Location / / Volume Laterality Blood specimen 04/21/2019 7:45 AM 7:45 (specimen) EDT AM EDT Ratna cMclain MD POINT OF CARE TEST ORDERABLE S Performing Organization Address City/State/ZIP Code Phon e Number [place] [id number] [facility] LABORATORY Drive (ABNORMAL) Differential, Automated (04/21/2019 3:28 AM EDT) [facility] Method Time Signature Neutrophils % 76.3 % [facility] LABORATORY Neutr Abs (ANC) 6.24 (H) 1.70 - [facility] 6.10 [facility] x10(3)/[facility] LABORATORY Lymphocytes % 14.3 % [facility] LABORATORY Lymphocytes Abs 1.2 0.9 - 3.2 [facility] x10(3)/[facility] [place] LABORATORY Monocytes % 8.1 % [facility] LABORATORY Monocyte Abs 0.7 0.3 - 0.9 [facility] x10(3)/[facility] LABORATORY Eosinophils % 0.4 % [facility] LABORATORY Eosinophils Abs 0.0 0.0 - 0.4 [facility] x10(3)/[facility] [place] LABORATORY Basophils % 0.4 % [facility] LABORATORY Basophils Abs 0.0 0.0 - 0.1 [facility] x10(3)/[facility] [place] LABORATORY Immature Gran % 0.50 % [facility] LABORATORY Comment: Immature granulocytes(IG's)percentage an d absolute count will include metamyelocytes, myelocytes, and promyelo cytes. Blood smears from CBCs yielding IG's will be scanned manually for concor dance. If this scan disagrees with the automated IG or if promyelocytes are not ed, a manual differential will be performed. Haily Gran Abs 0.04 0.00 - 0.04 x10(3)/[facility] LABORATORY Specimen Anatomical Collection Method Collection Time Receive d Time (Source) Location / / Volume Laterality Blood specimen 04/21/2019 3:28 AM 019 3:39 (specimen) EDT AM EDT Resulting Agency Comment Spec In Lab Josh Mao MD HEMATOLOGY ORDERABLES Performing Organization Address City/State/[place] [address] (ABNORMAL) Hemogram (04/21/2019 3:28 AM EDT) Patholo gist Method Time Signature WBC 8.2 4.0 - 9.5 [facility] LABORATORY RBC 3.44 (L) 4.58 - [place] [facility] 5.54 [facility] x10(6)/[facility] LABORATORY Hemoglobin 8.1 (L) 13.7 - [facility] 16.5 gm/dL [facility] LABORATORY Hematocrit 26.0 (L) 40.5 - [facility] 48.5 % [facility] LABORATORY MCV 75.6 (L) 82.9 - [facility] 93.1 [facility] LABORATORY MCH 23.5 (L) 27.5 - [place] 32.1 pg [facility] LABORATORY MCHC 31.2 (L) 32.0 - [facility] 35.7 gm/dL [facility] LABORATORY Platelets 94 (L) 145 - 357 [facility] x10(3)/[facility] LABORATORY RDWSD 52.6 (H) 36.0 - [place] [facility] 45.0 [facility] LABORATORY RDWCV 20.0 (H) 11.4 - [facility] 13.8 % [facility] LABORATORY MPV 10.6 7.6 - 12.9 [facility] LABORATORY nRBC % Auto 0.2 % [facility] LABORATORY nRBC Abs Auto 0.020 (H) 0.000 - [facility] 0.000 [facility] x10(3)/[facility] LABORATORY Specimen Anatomical Collection Method Collection Time Receive d Time (Source) Location / / Volume Laterality Blood specimen 04/21/2019 3:28 AM 019 3:39 (specimen) EDT AM EDT Resulting Agency Comment Spec In Lab Josh Mao MD HEMATOLOGY ORDERABLES Performing Organization Address City/State/[place] [address] (ABNORMAL) Hepatic Function Panel (04/21/2019 3:28 AM EDT) P athologist Signature Total Protein 5.8 (L) 6.1 - 8.0 [facility] gm/dL [facility] LABORATORY Albumin 2.5 (L) 3.2 - 5.2 [place] gm/dL [facility] LABORATORY AST 52 (H) 0 - 39 [place] [facility] unit/L [facility] LABORATORY ALT 27 0 - 55 [facility] unit/L [facility] LABORATORY Alk Phos 59 40 - 130 [facility] unit/L [facility] LABORATORY Total 2.1 (H) 0.2 - 1.3 [facility] Bilirubin mg/dL [facility] LABORATORY Bili, Direct 1.2 (H) 0.0 - 0.3 [facility] mg/dL [facility] LABORATORY Specimen Anatomical Collection Method Collection Time Receive d Time (Source) Location / / Volume Laterality Blood specimen 04/21/2019 3:28 AM 019 3:39 (specimen) EDT AM EDT Resulting Agency Comment Spec In Lab Bam Schrader MD CHEMISTRY ORDERABLES Performing Organization Address City/[facility]/ZIP Code Phon e Number [address] (ABNORMAL) Phosphorus (04/21/2019 3:28 AM EDT) P athologist Signature Phosphorus 1.9 (L) 2.5 - 4.5 [facility] mg/dL [facility] LABORATORY Specimen Anatomical Collection Method Collection Time Receive d Time (Source) Location / / Volume Laterality Blood specimen 04/21/2019 3:28 AM 019 3:39 (specimen) EDT AM EDT Resulting Agency Comment Spec In Lab Bam Schrader MD CHEMISTRY ORDERABLES Performing Organization Address City/[facility]/ZIP Code Phon e Number [address] Magnesium (04/21/2019 3:28 AM EDT) P athologist Signature Magnesium 0.88 0.69 - 1.07 [facility] mmol/L [facility] LABORATORY Specimen Anatomical Collection Method Collection Time Receive d Time (Source) Location / / Volume Laterality Blood specimen 04/21/2019 3:28 AM 019 3:39 (specimen) EDT AM EDT Resulting Agency Comment Spec In Lab Bam Schrader MD CHEMISTRY ORDERABLES Performing Organization Address City/State/[place] [address] (ABNORMAL) Basic Metabolic Panel (non-fasting) (04/21/2019 3:28 AM EDT) P athologist Signature Glucose Lvl 96 65 - 199 [facility] mg/dL [facility] LABORATORY Comment: Diabetes: >=200 mg/dL plus symp toms BUN 15 10 - 20 mg/dL [facility] LABORATORY Creatinine 0.71 (L) 0.80 - 1.50 mg/dL [facility] LABORATORY Sodium 137 135 - 145 mmol/L [facility] LABORATORY Potassium 4.0 3.5 - 5.0 mmol/L [facility] LABORATORY Comment: Please note: ??Patients with WBC >100,00 0 may have falsely elevated Potassium levels. ??For accurate Potassium quantif ication in these patients send serum separator tube (gold top) for subsequent determinations. ??Contact the Clinical Chemistry Laboratory if there are any qu estions. Chloride 108 (H) 98 - 107 mmol/L [facility] LABORATORY CO2 23 22 - 31 mmol/L [facility] LABORATORY Anion Gap 6 5 - 15 mmol/L [facility] LABORATORY Calcium 7.0 (L) 8.5 - 10.5 mg/dL [facility] LABORATORY Estimated GFR 99 >=60 mL/min/1.73 m?? [facility] LABORATORY Comment: The eGFR was calculated using the CKD-EP I equation. As with all creatinine based estimates of kidney function, eGFR values calculated with the CKD-EPI equation are not accurate in patients wi th acute kidney failure, extremes of body mass or the acutely ill. [email or web address] eGFR 115 >=60 mL/min/1.73 m?? [facility] LABORATORY Comment: The eGFR was calculated using the CKD-EP I equation. As with all creatinine based estimates of kidney function, eGFR values calculated with the CKD-EPI equation are not accurate in patients wi th acute kidney failure, extremes of body mass or the acutely ill. [email or web address]/DHMCnkf Specimen Anatomical Collection Method Collection Time Receive d Time (Source) Location / / Volume Laterality Blood specimen 04/21/2019 3:28 AM 019 3:39 (specimen) EDT AM EDT Resulting Agency Comment Spec In Lab Bam Schrader MD CHEMISTRY ORDERABLES Performing Organization Address [facility] [place] [address] (ABNORMAL) Prothrombin Time (04/21/2019 3:28 AM EDT) P athologist Signature PT 18.9 (H) 9.4 - 12.5 [facility] LABORATORY INR 1.6 [facility] LABORATORY Comment: An INR <2.0 [...] Mcclain MD HEMATOLOGY ORDERABLES Performing Organization Address [facility] [place] [address] (ABNORMAL) Fibrinogen (04/21/2019 3:28 AM EDT) P athologist Signature Fibrinogen 120 (L) 200 - 393 [facility] mg/dL [facility] LABORATORY Comment: A fibrinogen level >100 mg/dL is adequat e for hemostasis in most patients without underlying bleeding disorders. Specimen Anatomical Collection Method Collection Time Receive d Time (Source) Location / / Volume Laterality Blood specimen 04/21/2019 3:28 AM 019 3:39 (specimen) EDT AM EDT Resulting Agency Comment Spec In Lab Ratna Mcclain MD HEMATOLOGY ORDERABLES Performing Organization Address City/State/[place] [address] POCT Glucose (04/21/2019 3:19 AM EDT) athologist Signature POC Glucose 104 65 - 199 [place] mg/dL [facility] LABORATORY Comment: Supplemental ranges: <140 mg/dL before meals <180 mg/dL all other times of the day Specimen Anatomical Collection Method Collection Time Receive d Time (Source) Location / / Volume Laterality Blood specimen 04/21/2019 3:19 AM 019 3:19 (specimen) EDT AM EDT Ratna Mcclain MD POINT OF CARE TEST ORDERABLE S Performing Organization Address City/[facility]/[place] [address] POCT Glucose (04/21/2019 12:08 AM EDT) athologist Signature POC Glucose 142 65 - 199 [place] mg/dL [facility] LABORATORY Comment: Supplemental ranges: <140 mg/dL before meals <180 mg/dL all other times of the day Specimen Anatomical Collection Method Collection Time Receive d Time (Source) Location / / Volume Laterality Blood specimen 04/21/2019 12:08 9 (specimen) AM EDT 12:08 AM EDT Ratna Mcclain MD POINT OF CARE TEST ORDERABLE S Performing Organization Address City/[facility]/[place] [address] (ABNORMAL) Fibrinogen (04/20/2019 8:54 PM EDT) athologist Signature Fibrinogen 124 (L) 200 - 393 [place] NUHA mg/dL [facility] LABORATORY Comment: A fibrinogen level >100 mg/dL [...] Organization Address City/State/[place] [address] (ABNORMAL) Prothrombin Time (04/20/2019 8:54 PM EDT) P athologist Signature PT 18.5 (H) 9.4 - 12.5 [facility] sec [facility] LABORATORY INR 1.6 [facility] LABORATORY Comment: An INR <2.0 [...] Schrader MD HEMATOLOGY ORDERABLES Performing Organization Address City/[facility]/[place] [address] (ABNORMAL) Hemogram (04/20/2019 8:54 PM EDT) Patholo gist Method Time Signature WBC 7.6 4.0 - 9.5 [facility] x10(3)/[facility] LABORATORY RBC 3.51 (L) 4.58 - [place] NUHA 5.54 [facility] x10(6)/[facility] LABORATORY Hemoglobin 8.3 (L) 13.7 - [place] NUHA 16.5 gm/dL [facility] LABORATORY Hematocrit 26.6 (L) 40.5 - [place] NUHA 48.5 % [facility] LABORATORY MCV 75.8 (L) 82.9 - [place] N[place] 93.1 fL [facility] LABORATORY MCH 23.6 (L) 27.5 - [place] N[place] 32.1 pg [facility] LABORATORY MCHC 31.2 (L) 32.0 - [place] NU[place] 35.7 gm/dL [facility] LABORATORY Platelets 98 (L) 145 - 357 [facility] x10(3)/[facility] LABORATORY RDWSD 52.7 (H) 36.0 - [facility] 45.0 [facility] LABORATORY RDWCV 19.6 (H) 11.4 - M[place] DAVISONNUHA 13.8 % [facility] LABORATORY MPV 10.8 7.6 - 12.9 [facility] LABORATORY nRBC % Auto 0.3 % [facility] LABORATORY nRBC Abs Auto 0.020 (H) 0.000 - MINDY DAVISONNUHA 0.000 [facility] x10(3)/[facility] LABORATORY Specimen Anatomical Collection Method Collection Time Receive d Time (Source) Location / / Volume Laterality Blood specimen 04/20/2019 8:54 PM 019 9:02 (specimen) EDT PM EDT Resulting Agency Comment Spec In Lab Bam Schrader MD HEMATOLOGY ORDERABLES Performing Organization Address City/[facility] [place] [address] POCT Glucose (04/20/2019 8:52 PM EDT) P athologist Signature POC Glucose 140 65 - 199 [facility]dL [facility] LAB[facility]ATORY Comment: Supplemental ranges: <140 mg/dL before meals <180 mg/dL all other times of the day Specimen Anatomical Collection Method Collection Time Receive d Time (Source) Location / / Volume Laterality Blood specimen 04/20/2019 8:52 PM 019 8:52 (specimen) EDT PM EDT Ratna Mcclain MD POINT OF CARE TEST ORDERABLE S Performing Organization Address City/[facility] [place] [address] POCT Glucose (04/20/2019 3:57 PM EDT) P athologist Signature POC Glucose 118 65 - 199 [facility] mg/dL [facility] LABORATORY Comment: Supplemental ranges: <140 mg/dL before meals <180 mg/dL all other times of the day Specimen Anatomical Collection Method Collection Time Receive d Time (Source) Location / / Volume Laterality Blood specimen 04/20/2019 3:57 PM 019 3:57 (specimen) EDT PM EDT Bam Schrader MD POINT OF CARE TEST ORDERABLE S Performing Organization Address City/State/[place] [address] (ABNORMAL) Hemogram (04/20/2019 2:30 PM EDT) Analysis Performed At Patho logist Time Signature WBC 5.9 4.0 - 9.5 [facility] x[facility](3[facility] LABORATORY RBC 3.55 (L) 4.58 - [place] NUHA 5.54 [facility] x10(6)/[facility] LABORATORY Hemoglobin 8.5 (L) 13.7 - [facility] 16.5 gm/dL [facility] LABORATORY Hematocrit 27.3 (L) 40.5 - [facility] 48.5 % [facility] LABORATORY MCV 76.9 (L) 82.9 - [facility] 93.1 [facility] LABORATORY MCH 23.9 (L) 27.5 - [place] N[place] 32.1 pg [facility] LABORATORY MCHC 31.1 (L) 32.0 - [place] NUHA 35.7 gm/dL [facility] LABORATORY Platelets 87 (L) 145 - 357 [facility] x10(3)/[facility] LABORATORY RDWSD 52.4 (H) 36.0 - [place] NUHA 45.0 [facility] LABORATORY RDWCV 19.1 (H) 11.4 - [facility] 13.8 % [facility] LABORATORY MPV 10.3 7.6 - 12.9 [facility] nRBC % Auto 0.0 % [facility] LABORATORY nRBC Abs Auto 0.000 0.000 - [facility] 0.000 [facility] x10(3)/[facility] LABORATORY Specimen Anatomical Collection Method Collection Time Receive d Time (Source) Location / / Volume Laterality Blood specimen 04/20/2019 2:30 PM 019 2:59 (specimen) EDT PM EDT Resulting Agency Comment Spec In Lab Bam Schrader MD HEMATOLOGY ORDERABLES Performing Organization Address City/[facility]/[place] [address] (ABNORMAL) Fibrinogen (04/20/2019 2:30 PM EDT) P athologist Signature Fibrinogen 126 (L) 200 - 393 [facility] mg/dL [facility] LABORATORY Comment: A fibrinogen level >100 mg/dL is adequat e for hemostasis in most patients without underlying bleeding disorders. Specimen Anatomical Collection Method Collection Time Receive d Time (Source) Location / / Volume Laterality Blood specimen 04/20/2019 2:30 PM 019 2:59 (specimen) EDT PM EDT Resulting Agency Comment Spec In Lab Bam Schrader MD HEMATOLOGY ORDERABLES Performing Organization Address City/[facility]/ZIP Code Phon e Number [place] [id number] (ABNORMAL) Prothrombin Time (04/20/2019 2:30 PM EDT) athologist Signature PT 18.8 (H) 9.4 - 12.5 [facility] LABORATORY INR 1.6 [facility] LABORATORY Comment: An INR <2.0 [...] Schrader MD HEMATOLOGY ORDERABLES Performing Organization Address City/[facility] [place] [address] POCT Glucose (04/20/2019 12:04 PM EDT) athologist Signature POC Glucose 109 65 - 199 [facility] mg/dL [facility] LABORATORY Comment: Supplemental ranges: <140 mg/dL before meals <180 mg/dL all other times of the day Specimen Anatomical Collection Method Collection Time Receive d Time (Source) Location / / Volume Laterality Blood specimen 04/20/2019 12:04 9 (specimen) PM EDT 12:04 PM EDT Bam Schrader MD POINT OF CARE TEST ORDERABLE S Performing Organization Address City/State/[place] [address] Scan, Peripheral Blood (04/20/2019 10:34 AM EDT) Patholo gist Method Time Signature Plat Estimate Decreased [facility] LABORATORY RBC Morphology Abnormal [facility] LABORATORY Macrocytes 1-5 /HPF [facility] LABORATORY Microcytes 1-5 /HPF [facility] LABORATORY Hypochromia Slight [facility] LABORATORY Polychromasia Present >5/HPF [facility] LABORATORY Tear Drop Cells 1-5 /HPF [facility] LABORATORY Diane Cells 1-5 /HPF [facility] LABORATORY Specimen Anatomical Collection Method Collection Time Receive d Time (Source) Location / / Volume Laterality Blood specimen 04/20/2019 10:34 9 (specimen) AM EDT 10:41 AM EDT Resulting Agency Comment Spec In Lab Anil Rhodes APRN HEMATOLOGY ORDERABLES Performing Organization Address City/[facility]/[place] [address] (ABNORMAL) Fibrinogen (04/20/2019 10:34 AM EDT) P athologist Signature Fibrinogen 121 (L) 200 - 393 [facility] mg/dL [facility] LABORATORY Comment: A fibrinogen level >100 mg/dL [...] Organization Address City/State/[place] [address] (ABNORMAL) Prothrombin Time (04/20/2019 10:34 AM EDT) P athologist Signature PT 19.3 (H) 9.4 - 12.5 [facility] sec [facility] LABORATORY INR 1.7 [facility] LABORATORY Comment: An INR <2.0 [...] Organization Address City/State/ZIP Code Phon e Number [place] [id number] (ABNORMAL) Hemogram (04/20/2019 10:34 AM EDT) Patholo gist Method Time Signature WBC 8.0 4.0 - 9.5 [facility] LABORATORY RBC 3.68 (L) 4.58 - [place] NUHA 5.54 [facility] x10(6)/[facility] LABORATORY Hemoglobin 8.7 (L) 13.7 - [place] 16.5 gm/dL [facility] LABORATORY Hematocrit 28.1 (L) 40.5 - [place] 48.5 % [facility] LABORATORY MCV 76.4 (L) 82.9 - [place]HA 93.1 [facility] LABORATORY MCH 23.6 (L) 27.5 - [place] 32.1 pg [facility] LABORATORY MCHC 31.0 (L) 32.0 - [place] 35.7 gm/dL [facility] LABORATORY Platelets 85 (L) 145 - 357 [place] x10(3)/[facility] LABORATORY RDWSD 53.2 (H) 36.0 - [place] N[place]HA 45.0 [facility] LABORATORY RDWCV 19.9 (H) 11.4 - [place] 13.8 % [facility] LABORATORY MPV 10.6 7.6 - 12.9 MINDY BREEN [facility] LABORATORY nRBC % Auto 0.2 % [facility] LABORATORY nRBC Abs Auto 0.020 (H) 0.000 - MIND[place] BREEN 0.000 [facility] x10(3)/[facility] LABORATORY Specimen Anatomical Collection Method Collection Time Receive d Time (Source) Location / / Volume Laterality Blood specimen 04/20/2019 10:34 9 (specimen) AM EDT 10:41 AM EDT Resulting Agency Comment Spec In Lab Bam Schrader MD HEMATOLOGY ORDERABLES Performing Organization Address City/State/ZIP Code Phon e Number [address] Ammonia (04/20/2019 10:34 AM EDT) P athologist Signature Ammonia 49 16 - 60 [facility] LABORATORY Specimen Anatomical Collection Method Collection Time Receive d Time (Source) Location / / Volume Laterality Blood specimen 04/20/2019 10:34 9 (specimen) AM EDT 10:42 AM EDT Resulting Agency Comment Spec In Lab Maia Webb APRN CHEMISTRY ORDERABLES Performing Organization Address City/State/[place] [address] UPPER GI ENDOSCOPY (04/20/2019 9:11 AM EDT) Component Value Ref Test Analysis Performed At Patholo gist Range Method Time Signature UPPER GI [facility] ENDOSCOPY Endoscopy Procedure Date: 04/20/2019 9:11 AM ? Patient Name: Benjamín Henry ? Date of : 1955 ? Age: 64 ? Order #: [id number] ? Instrument Name: [id number] ? Procedure: ? Upper GI endoscopy Indications: [...] ? Assessment: IV - A patient wi th ? severe systemic disease that is a [...] extend along the lesser curva ture), ? witmonserrat stigmata Completely era dicated. ? Banded. ? - Normal examined duodenum. ? - No specimens collected. Recommendation: ?- Return patient to ICU for ongoing ? care. ? - Clear liquid diet. ? - Observe patient's clinical course. ? - Octerotide drip ? - Antibiotics ? - RUQ ultrasound ? - PPI daily ? Procedure Code(s): ?? --- Professional --- ? 99073, Esophagogastroduodenos copy, ? flexible, transoral; with ban d ? ligation of esophageal/gastri c varices Diagnosis Code(s): ?? --- Professional --- ? K92.0, Hematemesis ? 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 --- Technical --- ? K92.0, Hematemesis ? 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 All rights reserved. The codes documented in this report are preliminary and upon alumni relations coordinator review may be revised to meet current [...] RBC (04/20/2019 9:09 AM EDT) Anil Rhodes MACHINE REBUILDER NURSING TREATMENT ORDERABLES - BLOOD ADMIN Transfuse RBC (04/20/2019 9:09 AM EDT) Anil Rhodes APRN NURSING TREATMENT ORDERABLES - BLOOD ADMIN POCT Glucose (04/20/2019 8:25 AM EDT) athologist Signature POC Glucose 98 65 - 199 [facility] mg/dL [facility] LABORATORY Comment: Supplemental ranges: <140 mg/dL before meals <180 mg/dL all other times of the day Specimen Anatomical Collection Method Collection Time Receive d Time (Source) Location / / Volume Laterality Blood specimen 04/20/2019 8:25 AM 019 8:25 (specimen) EDT AM EDT Bam Schrader MD POINT OF CARE TEST ORDERABLE S Performing Organization Address City/[facility]/ZIP Code Phon e Number [address] Transfuse RBC (04/20/2019 7:29 AM EDT) Anil Rhodes APRN NURSING TREATMENT ORDERABLES - BLOOD ADMIN Prepare RBC (04/20/2019 6:05 AM EDT) athologist Signature Dispensed? Yes [facility] LABORATORY Specimen Anatomical Collection Method Collection Time Receive d Time (Source) Location / / Volume Laterality Blood specimen 04/20/2019 6:05 AM 019 6:02 (specimen) EDT AM EDT Anil Rhodes APRN BLOOD BANK ORDERABLES Performing Organization Address City/[facility]/[place] [address] Transfuse RBC (04/20/2019 5:54 AM EDT) Anil Rhodes APRN NURSING TREATMENT ORDERABLES - BLOOD ADMIN Transfuse RBC (04/20/2019 5:54 AM EDT) Anil Rhodes APRN NURSING TREATMENT ORDERABLES - BLOOD ADMIN (ABNORMAL) Fibrinogen (04/20/2019 5:50 AM EDT) athologist Signature Fibrinogen 112 (L) 200 - 393 [facility]/dL [facility] LABORATORY Comment: Called by: [facility], Read back by: carmelita jackson , Date/Time:04/20/19 06:16. A fibrinogen level >100 mg/dL is adequat e for hemostasis in most patients without underlying bleeding disorders. Specimen Anatomical Collection Method Collection Time Receive d Time (Source) Location / / Volume Laterality Blood specimen 04/20/2019 5:50 AM 019 5:54 (specimen) EDT AM EDT Resulting Agency Comment Spec In Lab Anil Carpenter Meagan MACHINE REBUILDER HEMATOLOGY ORDERABLES Performing Organization Address [facility]/[place] [address] (ABNORMAL) Prothrombin Time (04/20/2019 5:50 AM EDT) P athologist Signature PT 21.9 (H) 9.4 - 12.5 [facility] LABORATORY Comment: Called by: zoya, Read back by: byron jackson, Date/Time:04/20/19 06:17. INR 1.9 [facility] LABORATORY Comment: An INR [...] Comment Spec In Lab Anil Carpenter Meagan MACHINE REBUILDER HEMATOLOGY ORDERABLES Performing Organization Address City/[facility]/[place] [address] (ABNORMAL) Platelet count (04/20/2019 5:50 AM EDT) P athologist Signature Platelets 91 (L) 145 - 357 [facility] x10(3)/[facility] LABORATORY Plat Immature 2.4 0.0 - 7.4 [facility] % % [facility] LABORATORY Comment: Limitation of the Immature Platelet Frac tion (IPF)-May be less reliable when the platelet count is less than 51f480/u L due to statistical imprecision. The IPF [...] in a decreased state of production. References: [employer] The Clinical Value of the Immature Platelet Fraction (IPF) in Cell Recovery Document Number [id number] 02/2011 [employer] The Role of the Imm ature Platelet Fraction (IPF) in the Differential Diagnosis of Thrombocytopen ia, Document [id number] V05/09/06 P002/04 Specimen Anatomical Collection Method Collection Time Receive d Time (Source) Location / / Volume Laterality Blood specimen 04/20/2019 5:50 AM 019 5:54 (specimen) EDT AM EDT Resulting Agency Comment Spec In Lab Anil Rhodes APRN HEMATOLOGY ORDERABLES Performing Organization Address City/[facility]/[place] [address] (ABNORMAL) Hematocrit (04/20/2019 5:50 AM EDT) P athologist Signature Hematocrit 22.9 (L) 40.5 - [facility] 48.5 % [facility] Specimen Anatomical Collection Method Collection Time Receive d Time (Source) Location / / Volume Laterality Blood specimen 04/20/2019 5:50 AM 019 5:54 (specimen) EDT AM EDT Resulting Agency Comment Spec In Lab Anil Rhodes APRN HEMATOLOGY ORDERABLES Performing Organization Address City/[facility]/[place] [address] (ABNORMAL) Hemoglobin (04/20/2019 5:50 AM EDT) P athologist Signature Hemoglobin 6.9 (L) 13.7 - 16.5 [facility] gm/dL [facility] LABORATORY Specimen Anatomical Collection Method Collection Time Receive d Time (Source) Location / / Volume Laterality Blood specimen 04/20/2019 5:50 AM 019 5:54 (specimen) EDT AM EDT Resulting Agency Comment Spec In Lab Anil Rhodes APRN HEMATOLOGY ORDERABLES Performing Organization Address City/[facility]/ZIP Code Phon e Number [address] Scan, Peripheral Blood (04/20/2019 3:50 AM EDT) Patholo gist Method Time Signature Plat Estimate Decreased [facility] LABORATORY RBC Morphology Abnormal [facility] LABORATORY Microcytes 6-10 /HPF [facility] LABORATORY Hypochromia Moderate [facility] LABORATORY Polychromasia Present >5/HPF [facility] LABORATORY Ovalocytes 1-5 /HPF [facility] LABORATORY Tear Drop Cells 1-5 /HPF [facility] LABORATORY Target Cells 1-5 /HPF [facility] LABORATORY Giant Platelets Less than 1 /HPF [facility] LABORATORY Specimen Anatomical Collection Method Collection Time Receive d Time (Source) Location / / Volume Laterality Blood specimen 04/20/2019 3:50 AM 019 3:56 (specimen) EDT AM EDT Resulting Agency Comment Spec In Lab Anil Rhodes APRN HEMATOLOGY ORDERABLES Performing Organization Address City/[facility]/[place] [address] (ABNORMAL) Hemogram (04/20/2019 3:50 AM EDT) Analysis Performed At Patho logist Time Signature WBC 6.8 4.0 - 9.5 [facility] x10(3)/[facility] LABORATORY RBC 3.14 (L) 4.58 - [facility] 5.54 [facility] x10(6)/[facility] LABORATORY Hemoglobin 6.7 (L) 13.7 - [place] NUHA 16.5 gm/dL [facility] LABORATORY Hematocrit 23.3 (L) 40.5 - [facility] 48.5 % [facility] LABORATORY MCV 74.2 (L) 82.9 - MINDY LOPEZCK 93.1 [facility] LABORATORY MCH 21.3 (L) 27.5 - [place] 32.1 pg [facility] LABORATORY MCHC 28.8 (L) 32.0 - [facility] 35.7 gm/dL [facility] LABORATORY Platelets 89 (L) 145 - 357 [facility] x10(3)/[facility] LABORATORY RDWSD 53.4 (H) 36.0 - [facility] 45.0 [facility] LABORATORY RDWCV 20.3 (H) 11.4 - [place] NUHA 13.8 % [facility] LABORATORY MPV 9.8 7.6 - 12.9 [facility] LABORATORY nRBC % Auto 0.0 % [facility] LABORATORY nRBC Abs Auto 0.000 0.000 - [place] NUHA 0.000 [facility] x10(3)/[facility] LABORATORY Specimen Anatomical Collection Method Collection Time Receive d Time (Source) Location / / Volume Laterality Blood specimen 04/20/2019 3:50 AM 019 3:56 (specimen) EDT AM EDT Resulting Agency Comment Spec In Lab Bam Schrader MD HEMATOLOGY ORDERABLES Performing Organization Address City/[facility]/[place] [address] Prepare RBC (04/20/2019 3:35 AM EDT) athologist Signature Dispensed? Yes [facility] LABORATORY Specimen Anatomical Collection Method Collection Time Receive d Time (Source) Location / / Volume Laterality Blood specimen 04/20/2019 3:35 AM 019 3:32 (specimen) EDT AM EDT Anil Rhodes MACHINE REBUILDER BLOOD BANK ORDERABLES Performing Organization Address City/[facility]/ZIP [facility] [place] [address] (ABNORMAL) Hepatic Function Panel (04/20/2019 2:40 AM EDT) P athologist Signature Total Protein 5.9 (L) 6.1 - 8.0 [facility] gm/dL [facility] LABORATORY Albumin 2.5 (L) 3.2 - 5.2 [facility] gm/dL [facility] LABORATORY AST 51 (H) 0 - 39 [facility] unit/L [facility] LABORATORY ALT 26 0 - 55 [facility] unit/L [facility] LABORATORY Alk Phos 74 40 - 130 [facility]/L [facility] LABORATORY Total 1.4 (H) 0.2 - 1.3 [facility] Bilirubin mg/dL [facility] LABORATORY Bili, Direct 0.7 (H) 0.0 - 0.3 [facility] mg/dL [facility] LABORATORY Specimen Anatomical Collection Method Collection Time Receive d Time (Source) Location / / Volume Laterality Blood specimen Venous Draw / 04/20/2019 2:40 AM 2018 3:58 (specimen) Unknown EDT AM EDT Resulting Agency Comment Spec In Lab Maia Webb MACHINE REBUILDER CHEMISTRY ORDERABLES Performing Organization Address City/State/ZIP Code Phon e Number [address] ABORH Recheck Status (04/20/2019 2:40 AM EDT) Patholo gist Method Time Signature ABORH Recheck Order Placed [facility] K [facility] LABORATORY ABORH Type Complete [facility] LABORATORY Specimen Anatomical Collection Method Collection Time Receive d Time (Source) Location / / Volume Laterality Blood specimen 04/20/2019 2:40 AM 019 2:49 (specimen) EDT AM EDT Resulting Agency Comment Spec In Lab Anil Rhodes MACHINE REBUILDER BLOOD BANK ORDERABLES Performing Organization Address City/[facility]/[place] [address] Hemogram (04/20/2019 2:40 AM EDT) P athologist Signature WBC Clotted 4.0 - 9.5 [facility] LABORATORY Comment: Called by: GREGORY, Read back by: Virgilio Lewis, Date/Time:04/20/19 03:38. Corrected from Clotted on 04/20/19 3:38: 22 EDT by Sammi Talley Corrected from 6.9 x10(3)/mcL on 9 3:37:58 EDT by Sammi Talley RBC Clotted 4.58 - 5.54 [facility] Comment: Corrected from 3.20 x10(6)/mcL [LOW] on 04/20/19 3:37:58 EDT by Sammi Talley Hemoglobin Clotted 13.7 - 16.5 [facility] Comment: Corrected from 6.8 gm/dL [LOW] on 04/20/19 3:37:58 EDT by Sammi Talley Hematocrit Clotted 40.5 - 48.5 [facility] Comment: Corrected from 23.4 % [LOW] on 04/20/19 3:37:58 EDT by Sammi Talley MCV Clotted 82.9 - 93.1 [facility] Comment: Corrected from 73.1 fL [LOW] on 04/20/19 3:37:58 EDT by Sammi Talley MCH Clotted 27.5 - 32.1 [facility] Comment: Corrected from 21.3 pg [LOW] on 04/20/19 3:37:58 EDT by Sammi Talley MCHC Clotted 32.0 - 35.7 [facility] Comment: Corrected from 29.1 gm/dL [LOW] on 04/20/19 3:37:58 EDT by Sammi Talley Platelets Clotted 145 - 357 [facility] Comment: Corrected from 104 x10(3)/mcL [LOW] on 0 04/20/19 3:37:58 EDT by Sammi Talley RDWSD Clotted 36.0 - 45.0 [facility] Comment: Corrected from 52.8 fL [HI] on 04/20/19 3:37:58 EDT by Sammi Talley RDWCV Clotted 11.4 - 13.8 [facility] Comment: Corrected from 20.5 % [HI] on 0 04/20/19 3:37:58 EDT by Sammi Talley MPV 10.6 7.6 - 12.9 fL [facility] nRBC % Auto 0.0 % [facility] nRBC Abs Auto 0.000 0.000 - 0.000 x10(3)/mcL M [facility] Specimen Anatomical Collection Method Collection Time Receive d Time (Source) Location / / Volume Laterality Blood specimen 04/20/2019 2:40 AM 019 2:55 (specimen) EDT AM EDT Resulting Agency Comment Spec In Lab Anil Rhodes APRN HEMATOLOGY ORDERABLES Performing Organization Address City/[facility]/[place] [address] Antibody screen (04/20/2019 2:40 AM EDT) Patholo gist Method Time Signature Ab Screen Negative [facility] Expires at 04/23/2019 [facility] 0913 on: [facility] Specimen Anatomical Collection Method Collection Time Receive d Time (Source) Location / / Volume Laterality Blood specimen 04/20/2019 2:40 AM 019 2:49 (specimen) EDT AM EDT Resulting Agency Comment Spec In Lab Anil Rhodes APRN BLOOD BANK ORDERABLES Performing Organization Address City/State/[place] [address] ABO/Rh Typing (04/20/2019 2:40 AM EDT) P athologist Signature ABORh Type A Neg [facility] Specimen Anatomical Collection Method Collection Time Receive d Time (Source) Location / / Volume Laterality Blood specimen 04/20/2019 2:40 AM 019 2:49 (specimen) EDT AM EDT Resulting Agency Comment Spec In Lab Anil Rhodes APRN BLOOD BANK ORDERABLES Performing Organization Address City/[facility]/[place] [address] (ABNORMAL) Fibrinogen (04/20/2019 2:40 AM EDT) P athologist Signature Fibrinogen 126 (L) 200 - 393 MINDY NUHA mg/dL [facility] Comment: A fibrinogen level >100 mg/dL is adequat e for hemostasis in most patients without underlying bleeding disorders. Specimen Anatomical Collection Method Collection Time Receive d Time (Source) Location / / Volume Laterality Blood specimen 04/20/2019 2:40 AM 019 2:55 (specimen) EDT AM EDT Resulting Agency Comment Spec In Lab Bam Schrader MD HEMATOLOGY ORDERABLES Performing Organization Address City/[facility]/[place] [address] Phosphorus (04/20/2019 2:40 AM EDT) P athologist Signature Phosphorus 2.8 2.5 - 4.5 [facility] mg/dL [facility] Specimen Anatomical Collection Method Collection Time Receive d Time (Source) Location / / Volume Laterality Blood specimen 04/20/2019 2:40 AM 019 2:55 (specimen) EDT AM EDT Resulting Agency Comment Spec In Lab Bam Schrader MD CHEMISTRY ORDERABLES Performing Organization Address City/[facility]/[place] [address] (ABNORMAL) Magnesium (04/20/2019 2:40 AM EDT) P athologist Signature Magnesium 0.68 (L) 0.69 - 1.07 [facility] mmol/L [facility] Specimen Anatomical Collection Method Collection Time Receive d Time (Source) Location / / Volume Laterality Blood specimen 04/20/2019 2:40 AM 019 2:55 (specimen) EDT AM EDT Resulting Agency Comment Spec In Lab Bam Schrader MD CHEMISTRY ORDERABLES Performing Organization Address City/[facility]/[place] [address] (ABNORMAL) Basic Metabolic Panel (non-fasting) (04/20/2019 2:40 AM EDT) P athologist Signature Glucose Lvl 110 65 - 199 [facility] mg/dL [facility] Comment: Diabetes: >=200 mg/dL plus symp toms BUN 22 (H) 10 - 20 mg/dL [facility] Creatinine 0.76 (L) 0.80 - 1.50 mg/dL [facility] Sodium 139 135 - 145 mmol/L [facility] Potassium 4.5 3.5 - 5.0 mmol/L [facility] Comment: Please note: ??Patients with WBC >100,00 0 may have falsely elevated Potassium levels. ??For accurate Potassium quantif ication in these patients send serum separator tube (gold top) for subsequent determinations. ??Contact the Clinical Chemistry Laboratory if there are any qu estions. Chloride 108 (H) 98 - 107 mmol/L [facility] CO2 21 (L) 22 - 31 mmol/L [facility] Anion Gap 10 5 - 15 mmol/L [facility] Calcium 7.2 (L) 8.5 - 10.5 mg/dL [facility] Estimated GFR 96 >=60 mL/min/1.73 m?? [facility] Comment: The eGFR was calculated using the CKD-EP I equation. As with all creatinine based estimates of kidney function, eGFR values calculated with the CKD-EPI equation are not accurate in patients wi th acute kidney failure, extremes of body mass or the acutely ill. [email or web address] CITYnkf eGFR 112 >=60 mL/min/1.73 m?? [facility] Comment: The eGFR was calculated using the CKD-EP I equation. As with all creatinine based estimates of kidney function, eGFR values calculated with the CKD-EPI equation are not accurate in patients wi th acute kidney failure, extremes of body mass or the acutely ill. [email or web address] CITYnk[facility] Specimen Anatomical Collection Method Collection Time Receive d Time (Source) Location / / Volume Laterality Blood specimen 04/20/2019 2:40 AM 019 2:55 (specimen) EDT AM EDT Resulting Agency Comment Spec In Lab Bam Schrader MD CHEMISTRY ORDERABLES Performing Organization Address City/State/[place] [address] (ABNORMAL) Prothrombin Time (04/20/2019 2:40 AM EDT) athologist Signature PT 21.9 (H) 9.4 - 12.5 [facility] INR 1.9 [facility] Comment: An INR <2.0 [...] Schrader MD HEMATOLOGY ORDERABLES Performing Organization Address City/[facility]/[place] [address] (ABNORMAL) Lactate, whole blood, send to lab (Leb/CGP) (04/20/2019 2:40 AM EDT) P athologist Signature Lactate WB 3.0 (H) 0.5 - 2.2 [facility] mmol/L [facility] Specimen Anatomical Collection Method Collection Time Receive d Time (Source) Location / / Volume Laterality Blood specimen 04/20/2019 2:40 AM 019 2:55 (specimen) EDT AM EDT Resulting Agency Comment Spec In Lab Anil Rhodes APRN CHEMISTRY ORDERABLES Performing Organization Address City/[facility]/[place] [address] POCT Glucose (04/20/2019 2:35 AM EDT) P athologist Signature POC Glucose 116 65 - 199 [facility] mg/dL [facility] Comment: Supplemental ranges: <140 mg/dL before meals <180 mg/dL all other times of the day Specimen Anatomical Collection Method Collection Time Receive d Time (Source) Location / / Volume Laterality Blood specimen 04/20/2019 2:35 AM 019 2:35 (specimen) EDT AM EDT Zeus Umaña MD POINT OF CARE TEST ORDERABLE S Performing Organization Address City/State/ZIP Code Phon e Number [place] [phone] [facility] Drive documented in this encounter Visit Diagnoses Not on filedocumented in this encounter Admitting Diagnoses Diagnosis UGIB [...] Given 04/20/2019 9:29 PM EDT 2 Units melatonin tablet 3 mg Given 04/21/2019 9:12 [...] EDT 50 mcg/hr 10 mL/hr pantoprazole (PROTONIX) tablet 40 mg Given 04/22/2019 [...] Funk RN)2129 (Given - Provider: Tres Carpio, CLAU) 0834 (Given - Provider: Bull Vásquez N)1524 [...] - Reason: Transfer to a Procedural area)1016 (MAR Unhold - Provider: Admin Adt)1207 (Given - Provider: Yris Funk RN - Comment: pharmacy related) 1002 (Given - Provider: Mindy Bonilla RN) 0812 (Given - Provider: Cynthia bishop RN) 1 mg, Intravenous, DAILY, First dose on 04/20/19 at 0900, Until Discontinued, Routine insulin lispro (HumaLOG) VIAL injection 2-8 Units 0900 (Not Given - Provider: Yris Funk RN - Reason: Order parameters not met)0923 (MAR Hold - Provider: Admin Adt - Reason: Transfer to a Procedural area)1016 (MAR Unhold - Provider: Admin Adt) 0009 (Given [...] than three times) & call for new kristyn holt insulin orders. Do not hold if NPO, [...] 0812 (Given - Provider: Cynthia Nunes, RN) 40 mg, Oral, DAILY, First dose on [...] (Rate/Dose Change - Provider: Yris Funk RN)0923 (MAR Hold - Provider: Admin Adt - Reason: Transfer to a Procedural area)1016 (MAR Unhold - Provider: Admin Adt) 0000 (Rate/Dose [...] 1623 (New Bag - Provider: Yris bradley RN)1999 (Rate/Dose Verify - Provider: Tres Carpio RN)2200 (Rate/Dose Verify - Provider: Tres Carpio RN) 0612 (New Bag - Provider: Tres Carpio RN)1518 (New Bag - Provider: Khadijah Gastno RN)1999 (Rate/Dose Verify - Provider: Tres Carpio RN)2200 (Rate/Dose Verify - Provider: Tres Carpio RN) 0600 (Rate/Dose Verify - Provider: Kina Carpio RN)1334 (New Bag - Provider: Cynthia Nunes, RN)1500 (Stopped - Provider: Cynthia Nunes, CLAU) pantoprazole (PROTONIX) 80 mg in sodium chloride 0.9% 120 mL infusion (CANCELED) 0446 (New Bag - Provider: Gladis Cross, CLAU - Comment: per pharmasist it is compatable with octritide)0923 ([facility] Hold - Provider: Admin Adt - Reason: Transfer to a Procedural area)1016 ([facility] Unhold - Provider: Admin Adt) 8 mg/hr (12 mL/hr), at 12 mL/hr, Intrave nous, CONTINUOUS, Starting 04/20/19 at 0430, Until 04/20/19 at 1104 PRN Medication Order 04/20/2019 04/21/2019 04/22/2019 dextrose 50% intravenous solution 25-50 mL(Linked Grou p 1) 0923 ([facility] Hold - Provider: Admin Adt - Reason: Transfer to a Procedural area)1016 ([facility] Unhold - Provider: Admin Adt) 25-50 mL [...] PRN, S tarting 04/20/19 at 0231, Until Sun04/22/19 at 1917, [...] (GLUTOSE) 40% oral gel(Linked Group 1) 0923 ([facility] Hold - Provider: Admin Adt - Reason: Transfer to a Procedural area)1016 ([facility] Unhold - Provider: Admin Adt) 15-30 g, [...] grams., Routine sodium chloride 0.9% infusion 0923 ([facility] Hold - Provide r: Admin Adt - Reason: Transfer to a Procedural area)1016 ([facility] Unhold - Provider: Admin Adt) 10 mL/hr, at 10 mL/hr, Intravenous, CONT INUOUS PRN, Starting Sun04/20/19 at 0231, Until Sun04/22/19 at 1917 Linked Groups Order [...]
Routine documented in this encounter Care Teams Dispatch Lead Relationship Specialty Start Date End Date None PCP - General 04/20/19 05/18/19 None documented as of this encounter
--- OUTSIDE RECORDS SUMMARY | 2022-07-21 01:20 | XMS_ITS | Encounter Summary ---
:1955 Author Organization [facility] [place] [address] Care Team Providers Name Role Phone None Primary Care Provider Unavailable Encounter Details Date Type Department Care Team Description 04/28/2019 Telephone [facility] [place] [facility] [address] Social History Tobacco Use Types Packs/Day [...] Notes Telephone Encounter - Eliana Gardner - 04/28/2019 12:34 PM EDT Pt called in asking if his fu with Dr. Maier could be by phone due to him missing so much work whilebeing admitted or if this is something he could be followed locally instead. Pt asked that I call him back when I hear back documented in this encounter Plan of Treatment Scheduled Procedures Name Priority Associated Diagnoses Date/Time EGD, UPPER GI ENDOSCOPY Alcoholic cirrhosis, uns pecified whether ascites present Portal hypertension documented as of this encounter Visit Diagnoses Not on filedocumented in this encounter Care Teams Pipe Racker Relationship Specialty Start Date End Date None PCP - General 04/20/19 05/18/19 None documented as of this encounter
--- OUTSIDE RECORDS SUMMARY | 2022-07-21 01:20 | XMS_ITS | Encounter Summary ---
:1955 [place] [address] Care Team Providers Name Role Phone None Primary Care Provider Unavailable Encounter Details Date Type Department Care Team Description 04/29/2019 Telephone [place]ology at [facility] Eliana Gardner [facility] [place] [address] Social History Tobacco Use Types Packs/Day [...] Notes Telephone Encounter - Eliana Gardner - 04/29/2019 2:41 PM EDT Images from the original note were not included. April 29, 2019 Pineda Maier MD to Me ?? 11:47 AM I called the patient and left a message. We can push off the office visit for a month or 2 if he wants but he should definitely keep his appointment with Dr Bledsoe for endoscopy. Thanks, Blaze I called and for pt and relayed message. Let him know if he wants to cancel the apt and reschedule for a few months out to please give us a call back documented in this encounter Plan of Treatment Scheduled Procedures Name Priority Associated Diagnoses Date/Time EGD, UPPER GI ENDOSCOPY Alcoholic cirrhosis, uns pecified whether ascites present Portal hypertension documented as of this encounter Visit Diagnoses Not on filedocumented in this encounter Care Teams Petrophysicist Relationship Specialty Start Date End Date None PCP - General 04/20/19 05/18/19 None documented as of this encounter
--- OUTSIDE RECORDS SUMMARY | 2022-07-21 01:20 | XMS_ITS | Encounter Summary ---
:1955 Author Organization [facility] Address [address] [place] [address] Care Team Providers Name Role Phone None Primary Care Provider Unavailable Encounter Details Date Type Department Care Team Description 04/22/2019 Ancillary Procedure Radiology Library at [facility] [place] [address] Social History Tobacco Use Types Packs/Day [...] Name Priority Date/Time Associated Diagnosis Comme nts REQUEST FOR 2ND Routine 04/22/2019 2:39 PM Result s for this READ CT ABDOMEN AND EDT procedur e are in PELVIS the results section. documented in this encounter Results Request For 2nd Read CT Abdomen & [...] this study performed April 19, 2019 at [facility]. COMPARISON: None FINDINGS: The absence of [...] this study performed April 19, 2019 at [facility]. COMPARISON: None FINDINGS: The absence of [...] report, please contact th e number below. Joaquim Alfaro MD IMG OUTSIDE INTERPRETATION O RDERABLES documented in this encounter Visit Diagnoses Not on filedocumented in this encounter Care Teams Rate Examiner Relationship Specialty Start Date End Date None PCP - General 04/20/19 05/18/19 None documented as of this encounter
--- OUTSIDE RECORDS SUMMARY | 2022-07-21 01:21 | XMS_ITS | Encounter Summary ---
:1955 Author Organization [facility] Address [address] [place] [address] Care Team Providers Name Role Phone Unavailable Primary Care Provider Unavailable Encounter Details Date Type Department Care Team Description 04/19/2019 Ancillary Procedure Radiology Library at [facility]asidyIsiah salmon [facility] [address] [facility] [place] [address] [place] [address] [phone] (Wo rk) Social History Tobacco Use Types Packs/Day Years Used Date Never Assessed Alcohol Habits Answer Date Recorded How often do you have a drink containing 4 or more times a w circle 04/20/2019 alcohol? How many drinks containing alcohol do you have 3 or 4 04/20/2019 on a typical day when you are drinking? How often do you have six or more drinks on one Daily or alta ost daily 04/20/2019 occasion? Comment: Not asked Sex Assigned at Date Recorded Not on file documented as of this encounter Plan of Treatment Scheduled Procedures Name Priority Associated Diagnoses Date/Time EGD, UPPER GI ENDOSCOPY Alcoholic cirrhosis, uns pecified whether ascites present Portal hypertension documented as of this encounter Procedures Procedure Name Priority Date/Time Associated Diagnosis Comme nts FILM LIBRARY Routine 04/19/2019 12:00 AM Results for this STORAGE ONLY CT EDT procedure ar e in CHEST ABDOMEN the results PELVIS section. documented in this encounter Results Film Library- Storage Only CT Chest Abdomen Pelvis (04/19/2019 12:00 AM EDT) Specimen (Source) Anatomical Location Collection Method / Collectio n Time Received Time / Laterality Volume Narrative RAD - 04/20/2019 12:25 AM EDT This exam is auto-finalizing. It's purpo se is for storage only. Zeus Umaña MD IMG FILM LIBRARY ORDERABLES Performing Organization Address City/State/ZIP Code Phon e Number DH [facility] [place]ILL[place] documented in this encounter Visit Diagnoses Not on filedocumented in this encounter
--- OUTSIDE RECORDS SUMMARY | 2022-07-21 01:21 | XMS_ITS | Encounter Summary ---
:1955 Author Organization [facility] Address [address] [place] [address] Care Team Providers Name Role Phone Camron Suarez MD Primary Care Provider Encounter Details Date Type Department Care Team Description 12/23/2019 Lab Requisition [facility] Unknown, Provider, Pathology & Laboratory General acute hospital [address] [place] [address] Social History Tobacco Use Types Packs/Day Years Used Date Former Smoker Cigarettes, Pipe Quit: 09/25 Alcohol Use Standard Drinks/Week Comments Yes 0 (1 standard drink = 0.6 oz pure 1/2 pi nt liquor per day, more in alcohol) the past Alcohol Habits Answer Date Recorded How often do you have a drink Not asked containing alcohol? How many drinks containing alcohol do Not asked you have on a typical day when you are drinking? How often do you have six or more Not asked drinks on one occasion? Comment: 1/2 pint liquor per day, more in 013 the past Sex Assigned at Date Recorded Not on file documented as of this encounter Plan of Treatment Not on filedocumented as of this encounter Procedures Procedure Name Priority Date/Time Associated Diagnosis Comme nts AFP TUMOR MARKER Routine 12/23/2019 14:14 EDT Res ults for this procedure are i n the results section. documented in this encounter Results AFP TUMOR MARKER (12/23/2019 14:14 EDT) AFP Tumor Marker 5.8 <8.1 ng/mL [facility] Comment: [facility] AFP Tumor Marker cannot be interpreted in fem ales. ?? NOTE: Serum AFP concentrations keyla uld not be interpreted as absolute evidence for the presence or absence of malignant disease. Assayed on Siemens ADVIA Vanna taur XPT using chemiluminescent technology. ??Values obtained by using different assay methods cannot be used interchangeably. Specimen Blood - Venous blood (substance) Performing Organization Address City/State/ZIP Code Phon e Number [facility] [address] [place] [address] SERVICES documented in this encounter Visit Diagnoses Not on filedocumented in this encounter Care Teams Quality Internship Relationship Specialty Start Date End Date Camron Suarez MD PCP - General 01/29/[address] [place] [id number] documented as of this encounter
--- OUTSIDE RECORDS SUMMARY | 2022-07-21 01:21 | XMS_ITS | Encounter Summary ---
:1955 Author Organization [facility] Address [address] [place] [address] Care Team Providers Name Role Phone Camron Suarez MD Primary Care Provider Encounter Details Date Type Department Care Team Description 12/23/[address] [facility] Unknown, Provider, Pathology & Laboratory [facility] [address] [place] [address] Social History Tobacco Use Types Packs/Day Years [...] Name Priority Date/Time Associated Diagnosis Comme nts HCV RNA DETECT Today 12/23/2019 14:14 Results f or this QUANT EDT procedure are i n the results section. HEPATITIS C AB W Routine 12/23/2019 14:14 Results for this REFLEX TO HCV RNA EDT procedure are in BY PCR the results section. documented in this encounter Results HCV RNA DETECT QUANT (12/23/2019 14:14 EDT) Pathologist Sig nature HCV RNA Qualitative Undetected Undetected [facility] Specimen Blood - Venous blood (substance) Narrative [facility] - 12/25/2019 15:29 EDT The quantification range of this assay i s 15 IU/mL to 100,000,000 IU/mL. ??Testing was performed on the JOSEFA Ampliprep/COB TaqMan HCV v2.0 ([employer] Performing Organization Address City/State/ZIP Code Phon e Number [facility] [address] [place] [address] SERVICES (ABNORMAL) HEPATITIS C AB W REFLEX TO HCV RNA BY PCR (12/23/2019 14:14 EDT) Hep C Antibody Reactive (A) Negative [facility] Comment: LABORATORY SERVICES Supplemental testing for HCV RNA is ordered to r ule out active HCV infection. Specimen Blood - Venous blood (substance) Performing Organization Address City/State/ZIP Code Phon e Number [facility] [address] [place] [address] SERVICES documented in this encounter Visit Diagnoses Not on filedocumented in this encounter Care Teams Helpdesk Administrator Relationship Specialty Start Date End Date Camron Suarez MD PCP - General 01/29/[address] [place] [id number] documented as of this encounter
--- OUTSIDE RECORDS SUMMARY | 2022-07-21 01:21 | XMS_ITS | Encounter Summary ---
:1955 Author Organization [facility] Address [address] [place] [address] Care Team Providers Name Role Phone Camron Suarez MD Primary Care Provider Encounter Details Date Type Department Care Team Description 11/27/2016 Hospital Encounter [facility] Juanjose Gleason [facility] Carol Calvo MD 1 [facility] [address] [place] [address] [address] [place] [id number] (Wo rk) Social History Tobacco Use Types [...] file documented as of this encounter Discharge Diagnoses Diagnosis E83.110 Hereditary hemochromatosis-E83.1 10[ICD-10-CM] documented in this encounter Medications at Time of Discharge Medication Sig Dispensed Refills Start Date End Date MULTIVITAMIN/IRON/FOLIC Take 1 Tab by mouth 0 ACID (CEROVITE ADVANCED daily. FORMULA ORAL) triamterene-hydrochlorothi Take 1 Tab by mouth 0 azide (MAXZIDE) 37.5-25 mg daily. per tablet documented as of this encounter Discharge Disposition Disposition Code Departure Means Destination Home or Self Care documented in this encounter Plan of Treatment Not on filedocumented as of this encounter Visit Diagnoses Not on filedocumented in this encounter Care Teams Graphics Intern Relationship Specialty Start Date End Date Camron Suarez MD PCP - General 01/29/[address] [place] [address] documented as of this encounter
--- OUTSIDE RECORDS SUMMARY | 2022-07-21 01:21 | XMS_ITS | Encounter Summary ---
:1955 Author Organization [facility] Address [address] [place] [address] Care Team Providers Name Role Phone Camron Suarez MD Primary Care Provider Encounter Details Date Type Department Care Team Description 01/29/2012 Results Only Imaging [facility]- Luzmaria Suarez, GUY MALDONADO [phone] [address] [facility] [address] [place], [place] [id number] Social History Tobacco Use Types Packs/Day Years Used Date Never Assessed Sex Assigned at Date Recorded Not on file documented as of this encounter Plan of Treatment Not on filedocumented as of this encounter Procedures Procedure Name Priority Date/Time Associated Diagnosis Comme nts NM NUCLEAR STRESS 01/30/2012 0:00 EDT Res ults for this EXERCISE procedure are i n the results section. documented in this encounter Results NM NUCLEAR STRESS EXERCISE (01/30/2012 0:00 EDT) Specimen Narrative [facility] - 02/02/2012 12:58 EDT *[facility]* [address] [place] [address] *Interpreting Groups:* *[facility]* Myocardial Perfusion Imaging - SPECT Beka protocol (Report amended ) *PATIENT PRESENTATION* Height: ? 182.9cm (72in ) Blood Pressure: Weight: ? 102.3kg (225lb ) BSA: ?2.3m^2 Ordering physician: Camron Suarez Impressions: ??Normal myocardial perfusi on and contraction after maximal exercise. Summary: 1. Myocardial perfusion imaging: No myoc ardial perfusion ?? defects noted. 2. The calculated left ventricular eject ion fraction after ?? stress: 62%. LV global systolic func tion is normal. 3. Stress ECG conclusions: The stress EC G is positive. 4. Stress: The target heart rate was ach ieved. The heart ?? rate response to stress is exaggerat ed. There is a normal ?? resting blood pressure. Stress induc ed chest pain which ?? resolved spontaneously. Exercise cap acity is moderately ?? diminished for age. CAD likelihood: ??Pre test likelihood of CAD: 93%. Indication: ?? 786.50 Chest Pain, Unspec ified. ??786.05 Shortness of Breath. History: ??56 y/o male with no known CAD ; hx ETOH abuse with liver problems. Reports chest burning and SOB on exertion, relieved with rest. Denies sydnee st pain at this time. ??Typical angina. ??Risk factors: ??Family history of coronary artery disease. Former tobacco use. ??Medications: Diuretics. Imaging Technique: Protocol: ??Beka protocol. Acquisition: ?? Gated SPECT and planar i ing; 1 day - rest/stress. ?Attenuation correction used. Isotope administration: - Rest. Tc[99m]-sestamibi. Dose: 10mCi. Injection to stress ??time: 00:45. Injected by: Brian Trevino [facility]. - Stress. Tc[99m]-sestamibi. Dose: 30mCi . Injected at: 2 min ??before end of exercise. Injected by: Joaquim Trevino [facility]. Stress protocol: + +---+---------+ -----+ + Stage ? HR BP (mmHg) ST/T ? Symptoms ? + +---+---------+ -----+ + Baseline ? 54 132/80 ?? ------ --------- supine ? (97) ? + +---+---------+ -----+ + Baseline ? 75 139/90 ?? ------ --------- standing ? (106) ? + +---+---------+ -----+ + Stage I; ? 142 179/63 ?? Slow u psloping Moderate ? 1.7mph, ? (102) ? depr ession, ? dyspnea ? 10degrees; 3 ? 1-1. 5 mm in II, ? min ? III, aVF, V5 ? and V6 ? + +---+---------+ -----+ + Peak stress ?? 142 --------- Slow upsl oping Severe ? depression, 2-3 dyspnea ? mm ? + +---+---------+ -----+ + Immediate post 144 162/77 ?? Same as a yulisa ?? Chest ? stress ? (105) ? tightness ? + +---+---------+ -----+ + Recovery; 1 ?? 129 --------- --------- ------ min ? + +---+---------+ -----+ + Recovery; 3 ?? 88 179/89 ?? Return t o ? None ? min ? (119) ? arturo lance ? + +---+---------+ -----+ + Recovery; 6 ?? 83 147/89 ?? -------- ------- min ? (108) ? + +---+---------+ -----+ + Stress results: ?? Maximal heart rate du ring stress was 144bpm (88% of maximal predicted heart r ate). The maximal predicted heart rate was 164bpm. The tar get heart rate was achieved. The heart rate response to str ess is exaggerated. There is a normal resting blood pressure . Stress induced chest pain which resolved spontaneously. The patient experienced severe dyspnea in response t o stress. Exercise capacity is moderately diminished for ag e. Stress ECG: ?? The stress ECG is positiv e. ?? Maximal ST change occurred during the exercise phas e. Myocardial perfusion: ?? Imaging informa tion: gated. No myocardial perfusion defects noted. Ventricular Function (Wall Motion): ?? T he calculated left ventricular ejection fraction after stre ss: 62%. LV global systolic function is normal. Study data: ??Dr. Nato Harper supervis ed and was readily available during the procedure. ??Study status: ??Routine. Consent: ??The risks, benefits, and alte rnatives to the procedure were explained to the patient and informed consent was obtained. ??Procedure: ??Initial set up. A baseline ECG was recorded. Intravenous access was obtaine d. Surface ECG leads and manual cuff blood pressure measureme nts were monitored. Heart sounds: Normal. Lung sounds: Zully l. Treadmill exercise testing was performed using the Beka protocol. The patient exercised for 4 min 20 sec, to p rotocol stage 2, to a maximal work rate of 5.4mets. Exercise was terminated due to moderate dyspnea and moderate fatigue . ??Study completion: All catheters inserted during the proce dure were removed. The patient tolerated the procedure well and was discharged from the lab. ??Discharge: ??The patient left the laboratory in stable condition. Signature Documentation: - The imaging portion of this study was interpreted by ??N[facility] [employer] Dr.Timothy Blaze bell. - The imaging portion of this study was interpreted by ??Nuclear Radiologist Dr. Oswaldo Waldrop. - Gear Hobber Set Up Operator Dr. Mj Laughlin participated in ??image interpretation. - The Stress ECG portion of this study w as interpreted by ??Dr. Butch Elder. Electronically signed by Butch Elder [id number] Procedure Note 02/02/2012 *[facility]* [address] [place] [address] *Interpreting Groups:* *[facility]* Myocardial Perfusion Imaging - SPECT Beka protocol (Report amended ) *PATIENT PRESENTATION* Height: 182.9cm (72in ) Blood Pressure: Weight: 102.3kg (225lb ) BSA: 2.3m^2 Ordering physician: Camron Suarez Impressions: Normal myocardial perfusion and contraction after maximal exercise. Summary: 1. Myocardial perfusion imaging: No myoc ardial perfusion defects noted. 2. The calculated left ventricular eject ion fraction after stress: 62%. LV global systolic functio n is normal. 3. Stress ECG conclusions: The stress EC G is positive. 4. Stress: The target heart rate was ach ieved. The heart rate response to stress is exaggerated. There is a normal resting blood pressure. Stress induced chest pain which resolved spontaneously. Exercise capaci ty is moderately diminished for age. CAD likelihood: Pre test likelihood of C AD: 93%. Indication: 786.50 Chest Pain, Unspecifi ed. 786.05 Shortness of Breath. History: 56 y/o male with no known CAD; hx ETOH abuse with liver problems. Reports chest burning and SOB on exertion, relieved with rest. Denies sydnee st pain at this time. Typical angina. Risk factors: Fami ly history of coronary artery disease. Former tobacco use. Medications: Diuretics. Imaging Technique: Protocol: Beka protocol. Acquisition: Gated SPECT and planar imag ing; 1 day - rest/stress. Attenuation correction used . Isotope administration: - Rest. Tc[99m]-sestamibi. Dose: 10mCi. Injection to stress time: 00:45. Injected by: Hernan Trevino [facility]. - Stress. Tc[99m]-sestamibi. Dose: 30mCi . Injected at: 2 min before end of exercise. Injected by: Joaquim Thompson [facility]. Stress protocol: + +---+---------+ -----+ + Stage HR BP (mmHg) ST/T Symptoms + +---+---------+ -----+ + Baseline 54 132/80 - supine (97) + +---+---------+ -----+ + Baseline 75 139/90 - standing (106) + +---+---------+ -----+ + Stage I; 142 179/63 Slow upsloping M oderate 1.7mph, (102) depression, dyspnea 10degrees; 3 1-1.5 mm in II, min III, aVF, V5 and V6 + +---+---------+ -----+ + Peak stress 142 --------- Slow upslopi ng Severe depression, 2-3 dyspnea mm + +---+---------+ -----+ + Immediate post 144 162/77 Same as abov e Chest stress (105) tightness + +---+---------+ -----+ + Recovery; 1 129 --------- --- min + +---+---------+ -----+ + Recovery; 3 88 179/89 Return to Non e min (119) baseline + +---+---------+ -----+ + Recovery; 6 83 147/89 - min (108) + +---+---------+ -----+ + Stress results: Maximal heart rate durin g stress was 144bpm (88% of maximal predicted heart r ate). The maximal predicted heart rate was 164bpm. The tar get heart rate was achieved. The heart rate response to str ess is exaggerated. There is a normal resting blood pressure . Stress induced chest pain which resolved spontaneously. The patient experienced severe dyspnea in response t o stress. Exercise capacity is moderately diminished for ag e. Stress ECG: The stress ECG is positive. Maximal ST change occurred during the exercise phas e. Myocardial perfusion: Imaging informatio n: gated. No myocardial perfusion defects noted. Ventricular Function (Wall Motion): The calculated left ventricular ejection fraction after stre ss: 62%. LV global systolic function is normal. Study data: Dr. Nato Harper supervised and was readily available during the procedure. Study st atus: Routine. Consent: The risks, benefits, and altern atives to the procedure were explained to the patient and informed consent was obtained. Procedure: Initial setup. A baseline ECG was recorded. Intravenous access was obtaine d. Surface ECG leads and manual cuff blood pressure measureme nts were monitored. Heart sounds: Normal. Lung sounds: Zully l. Treadmill exercise testing was performed using the Beka protocol. The patient exercised for 4 min 20 sec, to p rotocol stage 2, to a maximal work rate of 5.4mets. Exercise was terminated due to moderate dyspnea and moderate fatigue . Study completion: All catheters inserted during the proce dure were removed. The patient tolerated the procedure well and was discharged from the lab. Discharge: The patient lef t the laboratory in stable condition. Signature Documentation: - The imaging portion of this study was interpreted by [facility] [employer] Dr.Timothy Kirstie ferro. - The imaging portion of this study was interpreted by Nuclear Radiologist Dr. Oswaldo Waldrop. - Gear Hobber Set Up Operator Dr. Mj Laughlin participated in image interpretation. - The Stress ECG portion of this study w as interpreted by Dr. Butch Elder. Electronically signed by Butch Elder [id number] Performing Organization Address City/State/ZIP Code Phon e Number [facility] documented in this encounter Visit Diagnoses Not on filedocumented in this encounter Care Teams Fabric Normalizer Relationship Specialty Start Date End Date Camron Suarez MD PCP - General 01/29/[address] [place] [address] documented as of this encounter
--- OUTSIDE RECORDS SUMMARY | 2022-07-21 01:21 | XMS_ITS | Encounter Summary ---
:1955 Author Organization [facility] Address [address] [place] [address] Care Team Providers Name Role Phone Camron Suarez MD Primary Care Provider Encounter Details Date Type Department Care Team Description 11/27/2016 Results Only [facility]- Syd Abreu, 2 [facility] [address] [place] [address] (Wo rk) Social History Tobacco Use Types [...] Procedure Name Priority Date/Time Associated Comments Diagnosis HOLD LAVENDER TOP Routine 11/27/2016 14:50 Result s for this EST procedure are i n the results section. TRANSFERRIN SATURATION Routine 11/27/2016 14:50 R esults for this EST procedure are i n the results section. TESTS ADDED BY PHONE Routine 11/27/2016 14:50 Res ults for this EST procedure are i n the results section. TRANSFERRIN Routine 11/27/2016 14:50 Results for this EST procedure are i n the results section. FERRITIN Routine 11/27/2016 14:50 Results for this EST procedure are i n the results section. HEMOCHROMATOSIS HFE GENE Routine 11/27/2016 14:50 Results for this ANALYSIS, BLOOD EST procedure ar e in the results section. documented in this encounter Results HEMOCHROMATOSIS HFE GENE ANALYSIS, BLOOD (11/27/2016 14:50 EST) Result Summary COMPLEX (SEE RESULT AND [facility] INTERPRETATION) [facility] SERVICES Result (Note) [facility] Comment: [facility] C282Y: One copy of the C282Y mutation was identified. SERVICES H63D: Not detected. S65C: Not detected. Interpretation (Note) [facility] Comment: [facility] This result indicates that this individual is at [facility] a SERVICES carrier of hereditary hemochromatosis (HH). . The diagnosis of HH cannot be excluded because approximately 3 to 5% of patients with HH in the [place] population carry this allele. For o ther ethnicities, the frequency of HH patients with this al ovi may differ. . This assay does not rule out the presence of other disease-causing mutations in the HFE gene or in other genes associated with hemochromatosis. . Genotyping results should be interpreted in the contex t of clinical findings, family history, and other laborator y testing (e.g. serum transferrin-iron saturation and se rum ferritin). . A genetic consultation may be of benefit. . ADDITIONAL INFORMATION ------ An online research opportunity called [employer] ([employer]), a project of [employer], is availabl e for the recipient of this genetic test. This patient ekta garcia collects de-identified genetic and health information to advance the knowledge of genetic variants. [facility] is a collaborator of [employer]. This may not be applicable fo r all tests. . Test results should be interpreted in the context of clinical findings, family history, and other laborator y data. Misinterpretation of results may occur if the information provided is inaccurate or incomplete. . Rare polymorphisms exist that could lead to false-nega tive or false-positive results. If results obtained do not match the clinical findings, additional testing should be considered. . Bone Marrow transplants from allogenic donors will interfere with testing. Call [facility] for instructions for testing patients who have received a bone marrow transplant. . Multiple in-silico evaluation tools may have been used to assist in the interpretation of these results. Of note , the sensitivity and specificity of these tools for the determination of pathogenicity is currently unvalidate d. . This test was developed and its performance characteri stics determined by [facility] in a manner consistent with CLIA requirements. This test has not been cleared or approv ed by the U.S. Food and Drug Administration. Specimen WB Whole Blood [facility] Method (Note) [facility] Comment: [facility] A multiplex PCR based assay utilizing the [employer] platform was used to test for the following three muta tions in the HFE gene; C282Y, H63D, and S65C. Because of the minimal effect on iron metabolism associated with the S65C mutation, it is only reported when it is found with th e C282Y mutation (i.e. if the patient has the C282Y/S65C genotype). Released By Luis Salazar, Ph.D. [facility] Comment: [facility] Performed or Referred by: [facility], [address] [place] [address], Lab Dir: Virgilio Hicks I I, M.D., Ph.D. Specimen Blood Performing Organization Address City/[facility]/ZIP Code Phon e Number [facility] [address] [place] [address] SERVICES TESTS ADDED BY PHONE (11/27/2016 14:50 EST) Pathologist Sig nature Tests to be added [place] MIS CODE [facility] HFE LABORATORY SERVICES Diagnosis Code SAME [facility] SERVICES Who Called [facility]LAS ORDER [facility] ISSUE LABORATORY SERVICES Location Code DOAS [facility] LABOR[facility]ORY SERVICES Read YES [facility] Back/Confirmed? LABORATORY SERVICES Specimen Other Performing Organization Address City/State/ZIP Code Phon e Number [facility] [address] [place] [address] SERVICES HOLD PURPLE TOP (11/27/2016 14:50 EST) Hold Purple Top EDTA for hematology will be discarded after 48 hours, differential not available after 12 [facility] hours. LABORATORY SERVICES Specimen Blood Performing Organization Address City/[facility]/ZIP Code Phon e Number [facility] [address] [place] [address] SERVICES (ABNORMAL) TRANSFERRIN SATURATION (11/27/2016 14:50 EST) Pathologist Sig nature Iron 21 (L) 49 - 181 ug/dl [facility] SERVICES TIBC 463 (H) 261 - 462 ug/dl [facility] SERVICES Iron Saturation 5 (L) 20 - 55 % [facility] SERVICES Specimen Blood Performing Organization Address City/State/ZIP Code Phon e Number [facility] [address] [place] [address] SERVICES (ABNORMAL) TRANSFERRIN (11/27/2016 14:50 EST) Pathologist Sig nature Transferrin 417 (H) 202 - 336 mg/dl [facility] SERVICES Specimen Blood Performing Organization Address City/State/ZIP Code Phon e Number [facility] [address] [place] [address] SERVICES FERRITIN (11/27/2016 14:50 EST) Pathologist Sig nature Ferritin 29 22 - 322 ng/ml [facility] ORY SERVICES Specimen Blood Performing Organization Address City/[facility]/ZIP Code Phon e Number [facility] [address] [place] [address] SERVICES documented in this encounter Visit Diagnoses Not on filedocumented in this encounter Care Teams E Commerce Manager Relationship Specialty Start Date End Date Camron Suarez MD PCP - General 01/29/[address] [address] documented as of this encounter
--- OUTSIDE RECORDS SUMMARY | 2022-07-21 01:21 | XMS_ITS | Encounter Summary ---
:[address] [facility] Address [address] [place] [address] Care Team Providers Name Role Phone Camron Suarez MD Primary Care Provider Encounter Details Date Type Department Care Team Description 01/22/2013 Results Only [facility], Gastroenterology - [address] [address] [address], [place] [address] (Wo rk) Social History Tobacco Use Types [...] Name Priority Date/Time Associated Diagnosis Comme nts SMEAR REVIEW Routine 01/22/2013 15:15 EDT Results for this procedure are i n the results section . documented in this encounter Results SMEAR REVIEW (01/22/2013 15:15 EDT) Smear scan only: Slide was examined by MOISÉS GONZALEZ a technologist to verify the WBC and/or platelet count. Specimen Performing Organization Address City/State/ZIP Code Phon e Number [facility] [address] [place] [address] SERVICES [facility] [address] [place] [address] documented in this encounter Visit Diagnoses Not on filedocumented in this encounter Care Teams Transfer Station Operator Relationship Specialty Start Date End Date Camron Suarez MD PCP - General 01/29/[address] [place] [address] [address] [place] [address] documented as of this encounter
--- OUTSIDE RECORDS SUMMARY | 2022-07-21 01:21 | XMS_ITS | Encounter Summary ---
:1955 Author Organization [facility] Address [address] [place] [address] Care Team Providers Name Role Phone Camron Suarez MD Primary Care Provider Encounter Details Date Type Department Care Team Description 01/22/2013 Phlebotomy Only [facility] Household Appliances Service Technician, Alcoh ol abuse; - [facility] [place] Family history of hemochroma tosis [address] [place] [address] Social History Tobacco Use Types Packs/Day Years [...] Name Priority Date/Time Associated Diagnosis Comme nts HEPATITIS C AB W Routine 01/22/2013 15:15 Alcohol abuse Results for this REFLEX TO HCV RNA BY EDT Family history of pr ocedure are in PCR hemochromatosis the results section. IBC Routine 01/22/2013 15:15 Alcohol abuse Results for this EDT Family history of procedure are in hemochromatosis the results section. HEPATITIS A TOTAL Routine 01/22/2013 15:15 Alcohol abuse Results for this ANTIBODY W REFLEX EDT Family history of proce dure are in hemochromatosis the results section. HEPATITIS B CORE Routine 01/22/2013 15:15 Alcohol abuse Results for this ANTIBODY (TOTAL) EDT Family history of proced ure are in hemochromatosis the results section. HEPATITIS B SURFACE Routine 01/22/2013 15:15 Alcohol abu se Results for this ANTIBODY EDT Family history of procedure are in hemochromatosis the results section. HEPATITIS B SURFACE Routine 01/22/2013 15:15 Alcohol abu se Results for this ANTIGEN EDT Family history of procedure are in hemochromatosis the results section. PROTIME Routine 01/22/2013 15:15 Alcohol abuse Results for this EDT Family history of procedure are in hemochromatosis the results section. COMPLETE BLOOD COUNT Routine 01/22/2013 15:15 Alcohol ab use Results for this EDT Family history of procedure are in hemochromatosis the results section. IRON Routine 01/22/2013 15:15 Alcohol abuse Results for this EDT Family history of procedure are in hemochromatosis the results section. FERRITIN Routine 01/22/2013 15:15 Alcohol abuse Results for this EDT Family history of procedure are in hemochromatosis the results section. COMPREHENSIVE Routine 01/22/2013 15:15 Alcohol abuse Results for this METABOLIC PANEL (CMP) EDT Family history of p rocedure are in hemochromatosis the results section. HEMOCHROMATOSIS HFE Routine 01/22/2013 15:15 Alcohol abu se Results for this GENE ANALYSIS, BLOOD EDT Family history of pr ocedure are in hemochromatosis the results section. documented in this encounter Results HEMOCHROMATOSIS (01/22/2013 15:15 EDT) Hemochromatosis Gene (Note) [facility] Comment: LAB RESULT: One copy of the C282Y mutation was detected (heterozyg ous for this mutation). ??The H63D mutation was not detected. INTERPRETATION: Heterozygosity for the C282Y mutation indicates that t he individual is at minimum a carrier of hereditary hemochromatosis (HH). Approximately 10-15% of individuals with hemochromatos is are heterozygous for this mutation, however, 10% of the [facility] population also carry this mutation. METHOD: The hemochromatosis mutations are detected by amplific ation of DNA isolated from blood followed by melt curve analysis. TEST PERFORMED BY: [facility] [address], [address] [place] [address] These results need to be interpreted in the context of the clinical presentation and the results of other laboratory tests . ??A consultation with a genetics counselor may be of benef it for this individual and/or family to further discuss the implic ations of these findings. The results reported here are only as accura te as the identity of the sample received. If any of the informa tion we received is inaccurate, or the identity of the sample is incorrect, these results and my interpretation and estimation of risk reported here could be invalid. ??This test is not an FDA- appr helen test, however it is based on the use of analyte-specific celine gents that do not require FDA approval. ??This test was developed an d its performance characteristics determined by [facility]. ??This laboratory is certified under the [facility] Laboratory Improvement Amendments of 1988 (CLIA) as qu alified to perform high complexity clinical laboratory testing. ? ?A [place] statute prevents our laboratory from releasing these r esults to anyone other than the person who has been tested and t he referring clinician without the prior written consent of the per son tested. Mindy ??Ranjana Perez MD Clinical Director Diagnosis Code: 305.00,v18.19 Specimen Blood specimen (specimen) Performing Organization Address City/[facility]/ZIP [facility] Phon e Number [facility] [address] [place] [address] SERVICES [facility] [address] [place] [id number] HEPATITIS C ANTIBODY (01/22/2013 15:15 EDT) Pathologist Sig nature Hepatitis C Ab REACTIVE [facility] Comment: Presumed past or present HCV infection. Reference Range: ??Negative Specimen Blood specimen (specimen) Performing Organization Address [facility]/ZIP [facility] [place] Phon e Number [facility] [address] [place] [address] SERVICES [facility] [address] [place] [address] HEPATITIS B SURFACE ANTIGEN (01/22/2013 15:15 EDT) Hepatitis B Surface NegativeComment: [facility] B Ag Reference Range: Negative Specimen Blood specimen (specimen) Performing Organization Address [facility]/ZIP [facility] [place] Phon e Number [facility] [address] [place] [address] SERVICES [facility] [address] [place] [address] HEPATITIS B SURFACE ANTIBODY (01/22/2013 15:15 EDT) Hepatitis B Surface Negative [facility] Comment: Reference Range: Unvaccinated: ??Negative Vaccinated: ??Positive HBs Antibody, Quant <5.0 mIU/mL [facility] Comment: Patient is presumed to not be immune to infection with HBV. Reference Range: Positive: >=12.0 mIU/mL Indeterminate: >=5.0 to <12.0 mIU/mL Negative: <5.0 mIU/mL Specimen Blood specimen (specimen) Performing Organization Address [facility] Phon e Number [facility] [address] [place] [address] SERVICES [facility] [address] [place] [address] HEPATITIS B CORE ANTIBODY (01/22/2013 15:15 EDT) Hep B Core Ab Negative [facility] Comment: Reference Range: ??Negative Interpretation depends on clinical setting. Specimen Blood specimen (specimen) Performing Organization Address [facility] Phon e Number [facility] [address] [place] [address] SERVICES [facility] [address] [place] [address] HEPATITIS A TOTAL ANTIBODY (01/22/2013 15:15 EDT) Pathologist Sig nature Hep A Antibody NegativeComment: [facility] Reference Range: Negative Specimen Blood specimen (specimen) Performing Organization Address [facility] Phon e Number [facility] [address] [place] [address] SERVICES [facility] [address] [place] [address] IBC (01/22/2013 15:15 EDT) Pathologist Sig nature TIBC 345 261 - 462 ug/dl [facility] Specimen Blood specimen (specimen) Performing Organization Address [facility] Phon e Number [facility] [address] [place] [address] SERVICES [facility] [address] [place] [address] IRON (01/22/2013 15:15 EDT) Pathologist Sig nature Iron 161 70 - 180 ug/dl [facility] Specimen Blood specimen (specimen) Performing Organization Address [facility] Phon e Number [facility] [address] [place] [address] SERVICES [facility] [address] [place] [address] (ABNORMAL) FERRITIN (01/22/2013 15:15 EDT) Pathologist Sig nature Ferritin 589 (H) 22 - 322 ng/mL [facility] Specimen Blood specimen (specimen) Performing Organization Address City/[facility]/ZIP Code Phon e Number [facility] [address] [place] [address] SERVICES [facility] [address] [place] [address] (ABNORMAL) HEMAGRAM (01/22/2013 15:15 EDT) Pathologist Sig nature WBC 5.72 4.0 - 10.4 K/cmm [facility] RBC 4.99 4.36 - 5.78 M/cmm [facility] Hemoglobin 16.3 13.8 - 17.3 gm/dl [facility] HCT 47.7 39.5 - 50.2 % [facility] MCV 96 (H) 81 - 95 fl [facility] MCH 32.7 27.6 - 33.0 pg [facility] MCHC 34.2 32.8 - 36.4 gm/dl [facility] PLT 89 (L) 141 - 320 K/cmm [facility] RDW-CV 14.0 11.8 - 14.1 % [facility] Specimen Blood specimen (specimen) Performing Organization Address [facility]/ZIP Code Phon e Number [facility] [address] [place] [address] SERVICES [facility] [address] [place] [address] (ABNORMAL) PROTIME (01/22/2013 15:15 EDT) Pro Time 14.1 (H)Comment: 9.5 - 13.1 [facility] Patient on Coumadin secs I.N.R. 1.2 (H) 0.9 - 1.1 [facility] Comment: Ratio Moderate Intensity Coumadin INR = 2.0-3.0 Adjustments in anticoagulant therapy dose should be based upon the INR and NOT the Pro Time. Patient on Coumadin Specimen Blood specimen (specimen) Performing Organization Address City/[facility]/ZIP Code Phon e Number [facility] [address] [place] [address] SERVICES [facility] [address] [place] [address] (ABNORMAL) COMPREHENSIVE METABOLIC PANEL (CMP) (01/22/2013 15:15 EDT) Pathologist Sig nature Potassium 4.3 3.5 - 5.0 mEq/L [facility] Sodium 139 136 - 145 mEq/L [facility] Chloride 102 96 - 110 mEq/L [facility] CO2 26 24 - 32 mEq/L [facility] Total Alkaline 126 38 - 126 U/L [facility] Phosphatase Bilirubin, Total 1.1 0.2 - 1.3 mg/dl [facility] AST 231 (H) 15 - 46 U/L [facility] ALT 214 (H) 21 - 72 U/L [facility] Albumin 4.0 3.4 - 4.9 g/dl [facility] Total Protein 7.9 6.5 - 8.3 g/dl [facility] Creatinine 1.09 0.66 - 1.25 [facility] mg/dl GFR, Calculated >60 >60 [facility] ml/min/1.73m2 BUN 15 10 - 26 mg/dl [facility] Calcium 8.7 8.5 - 10.5 [facility] mg/dl Calculated Calcium 9.1 8.5 - 10.5 [facility] mg/dl Glucose, Serum 83 70 - 100 mg/dl [facility] Fasting? NO [facility] Specimen Blood specimen (specimen) Performing Organization Address City/State/ZIP Code Phon e Number [facility] [address] [place] [address] SERVICES [facility] [address] [place] [address] documented in this encounter Visit Diagnoses Diagnosis Alcohol abuse Alcohol abuse, unspecified Family history of hemochromatosis Family history of other endocrine and me tabolic diseases documented in this encounter Care Teams Formula Room Worker Relationship Specialty Start Date End Date Camron Suarez MD PCP - General 01/29/12 [address] [facility] [address] [place] [address] documented as of this encounter
--- OUTSIDE RECORDS SUMMARY | 2022-07-21 01:21 | XMS_ITS | Encounter Summary ---
:1955 Author Organization [facility] Address [address] [place] [address] Care Team Providers Name Role Phone Camron Suarez MD Primary Care Provider Encounter Details Date Type Department Care Team Description 02/11/2021 Lab Requisition [facility] Khadijah Vincent and other Pathology & I, nonspecific skin Laboratory Medicine - [address] [facility] [facility] [address] [place] [id number] Social History Tobacco Use Types Packs/Day Years [...] file documented as of this encounter Discharge Disposition Disposition Code Departure Means Destination Home or Self Care documented in this encounter Plan of Treatment Not on filedocumented as of this encounter Procedures Procedure Name Priority Date/Time Associated Diagnosis Comme nts SURGICAL PATHOLOGY Today 02/11/2021 14:50 Rash and other Res ults for this EDT nonspecific skin procedure a re in eruption the results section. documented in this encounter Results SURGICAL PATHOLOGY (02/11/2021 14:50 EDT) Final Diagnosis A. SKIN OF ARM, RIGHT UPPER, SHAVE BIOPSY: [facility] - Spongiotic dermatitis. See microscopic and comment. [facility] Diagnosis Comment The findings are most consis tent with an eczematous dermatitis. While a fungal infection is considered, hyphae are not identified by special stains. There is subtle spongiosis most suggestive of an ecze [facility] matous process. Representati ve slides of this case were reviewed at the intradepartmental consultation conference. [facility] Attestation By the signature below, [facility] Elec tronically the attending physician [place] sign ed by Veronica, certifies that they LABORATORY Deepali Hewitt MD on have 1) personally SERVICES 02/15/2021 at 1248 conducted a gross and/or microscopic examination of the described specimen(s), and/or personally interpreted the results of laboratory testing of the described specimen(s), and 2) personally rendered or confirmed the above diagnosis. Microscopic The shave biopsy from [facility] Description the right upper arm [facility] shows patchy LABORATORY parakeratosis with SERVICES focally intra epidermal neutrophils. The epidermis shows mild spongiosis and lymphocytic exocytosis. Within the dermis, there is a mild superficial perivascular infiltrate of lymphocytes and histiocytes. Scattered eosinophils are noted. Pigment dropout is also appreciated. A PAS stain is performed and shows no evidence of fungal organisms.. Clinical History Right upper arm; thin [facility] erythematous scaly [facility] patches; DDx: Tinea vs. LABORATORY eczema vs. CTCL; SERVICES clinical diagnosis code: R21 Gross Description A. [facility] Received in formalin jairo d with proper patient identification (initials H, E) and R upper arm is a shave biopsy of slightly wrinkled irregular skin (1.0 x 0.8 x 0.1 cm). The specimen is received wi [facility] blue marking ink covering the entirety of the cutaneous surface. The margin is inked blue. Trisected and submitted in A1. LABORATORY SERVICES Pierre Schulz 02/12/2021 11:35 Performing Lab [facility] Scanned Images [facility] Specimen Tissue - Skin (tissue) specimen (specime n) Performing Organization Address City/State/ZIP Code Phon e Number [facility] [address] [place] [address] SERVICES documented in this encounter Visit Diagnoses Diagnosis Rash and other nonspecific skin eruption documented in this encounter Care Teams Recruiter Account Manager Relationship Specialty Start Date End Date Camron Suarez MD PCP - General 01/29/[address] [place] [id number] documented as of this encounter
--- OUTSIDE RECORDS SUMMARY | 2022-07-21 01:21 | XMS_ITS | Encounter Summary ---
:1955 Author Organization [facility] Address [address] [place] [address] Care Team Providers Name Role Phone Camron Suarez MD Primary Care Provider Encounter Details Date Type Department Care Team Description 03/23/2017 Results Only Imaging [facility]- Unknown, [facility] ProviderMD [phone] Social History Tobacco Use Types Packs/Day Years [...] as of this encounter Plan of Treatment Pending Results Name Type Priority Associated Diagnoses Date/Ti me OUTSIDE IMAGES - CT CHEST Imaging 11:17 EDT documented as of this encounter Visit Diagnoses Not on filedocumented in this encounter Care Teams Probation Manager Relationship Specialty Start Date End Date Camron Suarez MD PCP - General 01/29/[address] [address] [place] [address] documented as of this encounter
--- OUTSIDE RECORDS SUMMARY | 2022-07-21 01:21 | XMS_ITS | Clinical Summary ---
:1955 Author Organization [facility] Address [address] [place] [address] Care Team Providers Name Role Phone Camron Suarez MD Primary Care Provider Allergies No known active allergies Medications Medication Sig Dispensed Refills Start Date End Date Status triamterene-hydrochloro Take 1 Tab by 0 Active thiazide (MAXZIDE) mouth daily. 37.5-25 mg per tablet MULTIVITAMIN/IRON/FOLIC Take 1 Tab by 0 Active ACID (CEROVITE ADVANCED mouth daily. FORMULA ORAL) Medical History Medical History Date Comments Arthritis Hypertension Social History Tobacco Use Types Packs/Day Years [...] Sign Reading Time Taken Comments Blood Pressure 133/85 01/22/2013 1426 EDT Pulse 80 01/22/2013 1426 EDT Temperature - - Respiratory Rate - - Oxygen Saturation - - Inhaled Oxygen Concentration - - Weight 97.1 kg (214 lb) 01/22/2013 1426 EDT Height 182.9 cm (6') 01/22/2013 1426 EDT Body Mass Index 29.02 01/22/2013 1426 EDT Plan of Treatment Health Maintenance Due Date Last Done Comments COVID-19 Vaccine (1) 02/26/1960 Fall Risk Screening 02/26/2020 Hepatitis C Screen Completed 12/23/2019, 12/23/2019, 01/22 Insurance Payer Benefit Plan / Subscriber ID Effective Phone Address T ype Group Dates MEDICARE MEDICARE A/B [id number] 2020-Prese [address] Medicare [place] [id number] [place] [id number] 2019-Pres [address] [place] [address] Advance Directives For more information, please contact: [phone] Documents on File Type Date Recorded Patient E Merchant Explanati on Advance Directives and Living Will Power of Aircraft Tool Maker Care Teams Stress Test Technician Relationship Specialty Start Date End Date Camron Suarez MD PCP - General 01/29/[address] [place] [address] [address] [place] [address]
--- OUTSIDE RECORDS SUMMARY | 2022-07-21 01:21 | XMS_ITS | Encounter Summary ---
:1955 Author Organization [facility] Address [address] [place] [address] Care Team Providers Name Role Phone Camron Suarez MD Primary Care Provider Reason for Visit Reason Comments New Patient Visit Hemochromatosis Encounter Details Date Type Department Care Team Description 01/22/2013 Office Visit [facility] Jeremy Jacinto (Primary Dx); Gastroenterology - Anthony Hagan MD Family history of hemochromatosis [id number] [place] [address] [place], [address] [place] [id number] Social History Tobacco Use Types Packs/Day Years [...] Body Mass Index 29.02 01/22/2013 1426 EDT documented in this encounter Progress Notes Bentley Jacinto MD - 01/22/2013 1509 EDT GI Attending Attestation: I saw and evaluated this patient with the fellow/resident. I agree with the history and physical exam. I agree with the impression and plan. Yeison Victor MD - 01/22/2013 1429 EDT Hepatology Clinic Note 57 y.o.male New patient visit for ? of liver disease. Referred by Camron Suarez HPI Has a family history of hemochromatosis - uncle, cousin x2 and brother. States that he asked for a hepatology referral to see if he had it. He is asymptomatic, with no new complaints today. Does have fatigue. No known history of liver disease. Did vomit up blood about 1 year ago, and soon afterwards underwent a colonoscopy and EGD which noted a hiatal hernia and diverticulosis. Has had formed black stools in the past, which occur once every few months. He also has an alcohol abuse history - would drink about 1 pint of liquor daily since his 20s, and now is drinking about 1/2 that. Does have several tattoos which he did himself. Does have a remote history of intranasal cocaine (in the 70s). Has never had a blood transfusion. No fevers, chills, no history of jaundice. No constipation or diarrhea. No dysphagia or odynophagia.Lost 20 lbs since started on a diuretic for his BP. Past Medical History Diagnosis Date ??? Arthritis ??? Hypertension No past surgical history on file. No family history on file. Hemochromatosis History Substance Use Topics ??? Smoking status: Former Smoker Types: Cigarettes, Pipe Quit date: 10/13/2000 ??? Smokeless tobacco: Not on file ??? Alcohol Use: Yes 1/2 pint liquor per day, more in the past Current Outpatient Prescriptions Medication Sig Dispense Refill ??? triamterene-hydrochlorothiazide (MAXZIDE) 37.5-25 mg per tablet Take 1 Tab by mouth daily. ??? MULTIVITAMIN/IRON/FOLIC ACID (CEROVITE ADVANCED FORMULA ORAL) Take 1 Tab by mouth daily. No Known Allergies ROS Full review of systems was negative except as described above. Examination BP 133/85 Pulse 80 Ht 182.9 cm (72) Wt 97.07 kg (214 lb) BMI 29.02 kg/m2 Gen- Well appearing, NAD, A+Ox3 ENT- MMM, op clear, poor dentition Lym- No LAD CVS- RRR, no m/g/r RS- CTAB Abd- Soft, NT, ND, liver edge palpatable 3 cm below the ribs, BS+ Extr- Hands normal, no HALLEY, good pulses, WWP Skin- No rash Laboratory None. Imaging: None. Assessment: 57 yo male with a hx of etoh abuse, HTN and a family history of hemochromatosis who presents requesting testing. At this point, we have no information regarding the status of the patient's liver. We would first like to obtain baseline labs. Additionally given the strong family history we will obtain hemochromatosis labs as well. Finally, given his tattoo and drug history we will obtain hepatitis labs. If there is any abnormality noted, we will then get a liver ultrasound done here at [facility].We also counseled the patient that he should decrease if not stop his alcohol intake. Plan: Other Orders Placed This Visit Procedures ??? Comprehensive Metabolic Panel (CMP) ??? Protime ??? Hemagram ??? Ferritin ??? Iron ??? IBC ??? Hepatitis A Total Antibody ??? Hepatitis B Core Antibody ??? Hepatitis B Surface Antibody ??? Hepatitis B Surface Antigen ??? Hepatitis C Antibody ??? Hemochromatosis Seen with Dr Orville Apple MD Gastroenterology and Hepatology Fellow 01/22/2013 documented in this encounter Plan of Treatment Not on filedocumented as of this encounter Results HEMOCHROMATOSIS (01/22/2013 15:15 EDT) Hemochromatosis Gene (Note) [facility] Comment: LAB RESULT: One copy of the C282Y mutation was detected (heterozyg ous for this mutation). ??The H63D mutation was not detected. INTERPRETATION: Heterozygosity for the C282Y mutation indicates that t he individual is at minimum a carrier of hereditary hemochromatosis (HH). Approximately 10-15% of individuals with hemochromatos is are heterozygous for this mutation, however, 10% of the [facility] population also carry this mutation. METHOD: The hemochromatosis mutations are detected by amplific ation of DNA isolated from blood followed by melt curve analysis. TEST PERFORMED BY: [email or web address] [address], [address] [place] [address] These results need to be interpreted in [...] d its performance characteristics determined by [facility]. ??This laboratory is certified under the C linical Laboratory Improvement Amendments of 1988 (CLIA) as qu alified to perform high complexity clinical laboratory testing. ? ?A [place] statute prevents our laboratory from releasing these r esults to anyone other than the person who has been tested and t he referring clinician without the prior written consent of the per son tested. Mindy ??Ranjana Perez MD Clinical Director Diagnosis Code: 305.00,v18.19 Specimen Blood specimen (specimen) Performing Organization Address City/[facility]/ZIP Code Phon e Number [facility] [address] [place] [address] SERVICES [facility] [address] [place] [address] HEPATITIS C ANTIBODY (01/22/2013 15:15 EDT) Pathologist Sig nature Hepatitis C Ab REACTIVE [facility] Comment: Presumed past or present HCV infection. Reference Range: ??Negative Specimen Blood specimen (specimen) Performing Organization Address [facility]/ZIP Code Phon e Number [facility] [address] [place] [address] SERVICES [facility] [address] [place] [address] HEPATITIS B SURFACE ANTIGEN (01/22/2013 15:15 EDT) Hepatitis B Surface NegativeComment: [facility] B Ag Reference Range: Negative Specimen Blood specimen (specimen) Performing Organization Address [facility] Phon e Number [facility] [address] [place] [address] SERVICES [facility] [address] [place] [address] HEPATITIS B SURFACE ANTIBODY (01/22/2013 15:15 EDT) Hepatitis B Surface Negative [facility] Comment: Reference Range: Unvaccinated: ??Negative Vaccinated: ??Positive HBs Antibody, Quant <5.0 mIU/mL [facility] Comment: Patient is presumed to not be immune to infection with HBV. Reference Range: Positive: >=12.0 mIU/mL Indeterminate: >=5.0 to <12.0 mIU/mL Negative: <5.0 mIU/mL Specimen Blood specimen (specimen) Performing Organization Address [facility] Phon e Number [facility] [address] [place] [address] SERVICES [facility] [address] [place] [address] HEPATITIS B CORE ANTIBODY (01/22/2013 15:15 EDT) Hep B Core Ab Negative [facility] Comment: Reference Range: ??Negative Interpretation depends on clinical setting. Specimen Blood specimen (specimen) Performing Organization Address [facility] Phon e Number [facility] [address] [place] [address] SERVICES [facility] [address] [place] [address] HEPATITIS A TOTAL ANTIBODY (01/22/2013 15:15 EDT) Pathologist Sig nature Hep A Antibody NegativeComment: [facility] Reference Range: Negative Specimen Blood specimen (specimen) Performing Organization Address [facility] Phon e Number [facility] [address] [place] [address] SERVICES [facility] [address] [place] [address] IBC (01/22/2013 15:15 EDT) Pathologist Sig nature TIBC 345 261 - 462 ug/dl [facility] Specimen Blood specimen (specimen) Performing Organization Address [facility]/ZIP Code Phon e Number [facility] [address] [place] [address] SERVICES [facility] [address] [place] [address] IRON (01/22/2013 15:15 EDT) Pathologist Sig nature Iron 161 70 - 180 ug/dl [facility] Specimen Blood specimen (specimen) Performing Organization Address [facility]/ZIP Code Phon e Number [facility] [address] [place] [address] SERVICES [facility] [address] [place] [address] (ABNORMAL) FERRITIN (01/22/2013 15:15 EDT) Pathologist Sig nature Ferritin 589 (H) 22 - 322 ng/mL [facility] Specimen Blood specimen (specimen) Performing Organization Address [facility] Phon e Number [facility] [address] [place] [address] SERVICES [facility] [address] [place] [address] (ABNORMAL) HEMAGRAM (01/22/2013 15:15 EDT) Pathologist Sig [...] Specimen Blood specimen (specimen) Performing Organization Address [facility]/ZIP Code Phon e Number [facility] [address] [place] [address] SERVICES [facility] [address] [place] [address] (ABNORMAL) PROTIME (01/22/2013 15:15 EDT) Pro Time 14.1 (H)Comment: 9.5 - 13.1 [facility] Patient on Coumadin secs I.N.R. 1.2 (H) 0.9 - 1.1 [facility] Comment: Ratio Moderate Intensity Coumadin INR = 2.0-3.0 Adjustments in anticoagulant therapy dose should be based upon the INR and NOT the Pro Time. Patient on Coumadin Specimen Blood specimen (specimen) Performing Organization Address [facility] Phon e Number [facility] [address] [place] [address] SERVICES [facility] [address] [place] [address] (ABNORMAL) COMPREHENSIVE METABOLIC PANEL (CMP) (01/22/2013 15:15 EDT) Pathologist [facility] Potassium 4.3 3.5 - 5.0 mEq/L [facility] [...] Specimen Blood specimen (specimen) Performing Organization Address [facility] Phon e Number [facility] [address] [place] [address] SERVICES [facility] [address] [place] [address] documented in this encounter Visit Diagnoses Diagnosis Alcohol abuse - Primary Alcohol abuse, unspecified Family history of hemochromatosis Family history of other endocrine and me tabolic diseases documented in this encounter Historical Medications This list may reflect changes made after this encounter. Medication Sig Dispensed Refills Start Date End Date MULTIVITAMIN/IRON/FOLIC Take 1 Tab by mouth 0 ACID (CEROVITE ADVANCED daily. FORMULA ORAL) triamterene-hydrochlorothi Take 1 Tab by mouth 0 azide (MAXZIDE) 37.5-25 mg daily. per tablet added in this encounter Care Teams Metal Cans Supervisor Relationship Specialty Start Date End Date Camron Suarez MD PCP - General 01/29/[address] [place] [id number] documented as of this encounter
--- OUTSIDE RECORDS SUMMARY | 2022-07-21 01:21 | XMS_ITS | Encounter Summary ---
:1955 Author Organization [facility] Address [address] [place] [address] Care Team Providers Name Role Phone Camron Suarez MD Primary Care Provider Encounter Details Date Type Department Care Team Description 01/23/2013 Orders Only [facility] Ferrent[facility], LFTs abno al Gastroenterology - [facility] MD Bentley (Primary Dx) [place] [address] [place] [id number] [place] [address] [place], [address] [place] [address] Social History Tobacco Use Types Packs/Day Years [...] filedocumented as of this encounter Visit Diagnoses Diagnosis LFTs abnormal - Primary Other abnormal blood chemistry documented in this encounter Care Teams Diagram Clerk Relationship Specialty Start Date End Date Camron Suarez MD PCP - General 01/29/12 [address] [facility] [address] [place], [place] [id number] documented as of this encounter
--- OUTSIDE RECORDS SUMMARY | 2022-07-21 01:21 | XMS_ITS | Encounter Summary ---
:1955 Author Organization [facility] Address [address] [place] [address] Care Team Providers Name Role Phone Camron Suarez MD Primary Care Provider Encounter Details Date Type Department Care Team Description 10/02/2019 Lab Requisition [facility] Unknown, Provider, Pathology & Laboratory [facility] [address] [place] [address] [place] [address] Social History Tobacco Use Types Packs/Day Years [...] Name Priority Date/Time Associated Diagnosis Comme nts TRANSFERRIN Routine 10/02/2019 10:38 EST Results for this procedure are i n the results section . documented in this encounter Results (ABNORMAL) TRANSFERRIN (10/02/2019 10:38 EST) Pathologist Sig nature Transferrin 376 (H) 201 - 352 mg/dL [facility] Specimen Blood - Venous blood (substance) Performing Organization Address City/State/ZIP Code Phon e Number [facility] [address] [place] [address] SERVICES documented in this encounter Visit Diagnoses Not on filedocumented in this encounter Care Teams Pool Installer Relationship Specialty Start Date End Date Camron Suarez MD PCP - General 01/29/[address] [place] [id number] documented as of this encounter
--- OUTSIDE RECORDS SUMMARY | 2022-07-21 01:21 | XMS_ITS | Encounter Summary ---
:1955 Author Organization [facility] Address [address] [place] [address] Care Team Providers Name Role Phone Camron Suarez MD Primary Care Provider Encounter Details Date Type Department Care Team Description 03/04/2020 Lab Requisition [facility] Outr Resulting Lab, Pathology & Laboratory Provider [facility] [address] [place] [address] Social History Tobacco Use Types Packs/Day Years [...] Name Priority Date/Time Associated Diagnosis Comme nts LYME AB Routine 03/04/2020 11:29 EDT Results for this procedure are i n the results section . documented in this encounter Results LYME AB (03/04/2020 11:29 EDT) Pathologist Sig nature Lyme Ab Negative Negative [facility] Comment: LABORATORY SERVICES New 3rd generation assay in use date 03/03/2020 Specimen Blood - Venous blood (substance) Performing Organization Address City/State/ZIP Code Phon e Number [facility] [address] [place] [address] SERVICES documented in this encounter Visit Diagnoses Not on filedocumented in this encounter Care Teams Lye Machine Operator Relationship Specialty Start Date End Date Camron Suarez MD PCP - General 01/29/[address] [place] [address] documented as of this encounter
--- NOTE | 2022-07-21 07:30 | DI.US_ITS ---
Exam(s) US LOWER EXTREMITY VENOUS RT EXAM: US LOWER EXTREMITY VENOUS RT CLINICAL HISTORY: rt leg swelling,bleeding from varicose veins, I83.891 TECHNIQUE: Right lower extremity venous ultrasound performed using grayscale, color-flow, and spectr al Doppler analysis. COMPARISON: No exams were available for comparison FINDINGS: The right common femoral, femoral and popliteal veins demonstrate normal compressibility, augmentatio n, and color Doppler. The posterior tibial veins are patent. The saphenofemoral junction is unremark able. There is no evidence of a Najera cyst. Venous varicosities are seen in the lower extremity. T here is mild edema in the soft tissues of the lower extremity. IMPRESSION: No evidence of a right lower extremity DVT. DATA REPOSITORY:
== END ==
PROVIDERS: PCP Family Medicine; Visit Provider Physician Assistant
DX: I83.891 Varicose veins of right lower extremity with other complications (principal)
CPT/HCPCS: 93971

== ENCOUNTER 2022-07-22 16:16 | Outpatient (REF) | payer MEDICARE, MEDICAID, SELFPAY ==
[2022-07-22 19:09] LABS: Abs Immature Grans 0.01 10^3/uL (0.0-0.06); Absolute Basophil Count 0.06 10^3/uL (0.0-0.2); Absolute Eosinophil Count 0.09 10^3/uL (0.0-0.7); Absolute Lymphocyte Count 0.92 10^3/uL (1.2-3.4); Absolute Monocyte Count 0.75 10^3/uL (0.1-0.8); Absolute Neutrophil Count 3.13 10^3/uL (1.2-6.7); Basophils % 1.2; Eosinophils % 1.8; HCT 49.5 % (40.0-50.0); HGB 16.9 g/dL (13.5-17.5); Immature Grans % 0.2; Lymphocytes % 18.5; MCH 32.4 pg (27.0-33.0); MCHC 34.1 % (32.0-36.0); MCV 95 fL (80-95); MPV 11.4 fL (8.0-11.0); Monocytes % 15.1; Neutrophils % 63.2; Platelet Count 136 10^3/uL (130-400); RBC 5.21 10^6/uL (4.36-5.78); RDW 12.7 % (11.8-14.1); RDW-SD 44.3 fL; WBC 4.96 10^3/uL (4.4-10.8)
[2022-07-22 19:18] LABS: ALT 55 U/L (16-63); AST 82 U/L (15-37); Albumin 3.5 g/dL (3.4-5.0); Alkaline Phosphatase 164 U/L (46-116); Anion Gap 6.7 mmol/L (3-11); BUN 12 mg/dL (7-18); Bilirubin, Total 1.9 mg/dL (0.2-1.0); CO2 29.3 mmol/L (21.0-32.0); CREATININE 0.9 mg/dL (0.70-1.30); Calcium 9.2 mg/dL (8.5-10.1); Chloride 100 mmol/L (98-107); Estimated GFR 93.61 (mL/min/1.73m2); Glucose 90 mg/dL (74-106); Potassium 3.4 mmol/L (3.5-5.1); Sodium 136 mmol/L (136-145); Total Protein 8.8 g/dL (6.4-8.2)
== END 2022-07-22 16:17 | disposition home or self-care (01) ==
LOC: LBN 16:16
PROVIDERS: PCP Family Medicine; Visit Provider Nurse Practitioner Family
DX: L03.90 Cellulitis, unspecified (principal); R22.9 Localized swelling, mass and lump, unspecified
CPT/HCPCS: 80053; 85025

== ENCOUNTER 2023-05-11 02:31 | Outpatient (CLI) | payer MEDICARE, MEDICAID, SELFPAY ==
--- OUTSIDE RECORDS SUMMARY | 2023-05-11 02:33 | XMS_ITS | Continuity of Care Document ---
Author Name Unknown Address [address] [place] [address] Phone [facility] Address [address] [place] [address] Phone Care Team Providers Care Materials Management Clerk Name Role Phone Camron Suarez Primary Care Provider Camron Suarez Attending Provider [phone] Mehdi London Attending Provider Allergies, Adverse Reactions, Alerts Allergen Type Severity Reaction Last Updated Verified Status aspirin Adverse Reaction Unknown bleeding September 03, 2015 12:00am Yes Active ibuprofen Adverse Reaction Unknown flank pain June 21, 2016 12:00am Yes Active acetaminophen Adverse Reaction makes sides ache October 01, 2018 9:24am Yes Active Medications Medication Status Dose Units Route Sig Qty Days Start Date End Date Instructions Hydrochlorothi azide/Triamter (HYDR OCHLOROTHIAZID E/TRIAM 25 mg-37.5 mg) 1 CAP Cap Discontinu ed 1 CAP PO DAILY February 29, 2012 8:27am July 16, 2018 5:50pm Pantoprazole (Protonix) 40 MG tablet,delayed release (DR/EC) Discontinu ed 40 MG PO TWICE A DAY February 01, 2016 10:05am July 16, 2018 5:49pm Take 1 tablet twice daily Phenobarbital Discontinu ed 16.2 MG PO TWICE A DAY February 01, 2016 10:11am February 01, 2016 6:24pm Take 1/2 tablet by mouth twice daily, first dose Phenobarbital Discontinu ed 32.4 MG PO THREE TIMES A DAY February 01, 2016 10:11am March 18, 2018 2:18pm Take 1 tablet by mouth every 8 hours (6AM, 2PM, 10PM) Phenobarbital Discontinu ed 16.2 MG PO TWICE A DAY 2 February 01, 2016 6:24pm March 18, 2018 2:18pm Take 1/2 tablet by mouth twice daily, first dose 02/03/16 10AM Ferrous Sulfate Active 325 MG PO DAILY October 01, 2018 9:27am Triamterene-Hy drochlorothiaz id Active 1 TAB PO DAILY October 01, 2018 9:27am Ca Phos-Cranberry -Milk Thistle (Liver-Kidney Cleanser) Capsule Active 1 TAB PO THREE TIMES A DAY October 01, 2018 9:27am Ueofmntu-Pxv-K len-Pbzkp-Bzk K1 (Centrum Chewables) 8 mg-400 mcg- 10 mcg Tablet,Chewabl e Active 1 TAB PO DAILY October 01, 2018 9:27am Problems Active Problems Medical Problem Onset Date Status Alcohol abuse Active Cough June 21, 2016 Active Difficulty breathing June 21, 2016 Active Liver cirrhosis Active Sprain of shoulder and upper arm March 21, 2018 Active Chronic obstructive pulmonary disease June 21, 2016 Active Acute GI bleeding Active Hematemesis September 12, 2018 Active Anemia due to chronic blood loss September 03, 2015 Active Gastroesophageal reflux disease September 12, 2 018 Active Hypertension Active Arthralgia of right upper arm March 21, 2018 Ac tive Inactive/Resolved Problems Medical Problem Onset Date Status Tear of right biceps muscle Reso lved Relevant Diagnostic Tests and/or Laboratory Data Laboratory Results Test Date/Time Result Interpretation Reference Range Result Comment Performing Site White Blood Count July 02, 2019 10:55am 3.55 1000/mm3 4.8-10.8 MAIN LAB, [address] [place] [address] White Blood Count May 02, 2019 10:15am 4.81 1000/mm3 4.8-10.8 MAIN LAB, [address] [place] [address]808 White Blood Count October 02, 2019 10:38am 3.62 1000/mm3 4.8-10.8 MAIN LAB, [address] [place] [address] Red Blood Count July 02, 2019 10:55am 4.66 M/mm3 4.70-6.00 MAIN LAB, [address] [place] [address] Red Blood Count May 02, 2019 10:15am 3.80 M/mm3 4.70-6.00 MAIN LAB, [address] [place] [address] 97781 Red Blood Count October 02, 2019 10:38am 4.94 M/mm3 4.70-6.00 MAIN LAB, [address] [place] [address] 06548 Hemoglobin May 02, 2019 10:15am 8.5 g/dL 14.0-18.0 MAIN LAB, [address] [place] [address] 32461 Hemoglobin October 02, 2019 10:38am 10.3 g/dL 14.0-18.0 MAIN LAB, [address] [place] [address] 44981 Hemoglobin July 02, 2019 10:55am 9.0 g/dL 14.0-18.0 MAIN LAB, [address] [place] [address] 77217 Hematocrit May 02, 2019 10:15am 29.7 % 42-52 MAIN LAB, [address] [place] [address] 49711 Hematocrit July 02, 2019 10:55am 32.7 % 42-52 MAIN LAB, [address] [place] [address] 12299 Hematocrit October 02, 2019 10:38am 36.5 % 42-52 MAIN LAB, [address] [place] [address] 71825 Mean Corpuscular Volume July 02, 2019 10:55am 70.2 fL 80.0-94.0 MAIN LAB, [address] [place] [address] 06812 Mean Corpuscular Volume May 02, 2019 10:15am 78.2 fL 80.0-94.0 MAIN LAB, [address] [place] [address] 29778 Mean Corpuscular Volume October 02, 2019 10:38am 73.9 fL 80.0-94.0 MAIN LAB, [address] [place] [address] 16193 Mean Corpuscular Hemoglobin May 02, 2019 10:15am 22.4 pg 27-31 MAIN LAB, [address] [place] [address] 95540 Mean Corpuscular Hemoglobin July 02, 2019 10:55am 19.3 pg 27-31 MAIN LAB, [address] [place] [address] 89224 Mean Corpuscular Hemoglobin October 02, 2019 10:38am 20.9 pg 27-31 MAIN LAB, [address] [place] [address] 29095 Mean Corpuscular Hemoglobin Concent July 02, 2019 10:55am 27.5 g/dL 3337 MAIN LAB, [address] [place] [address] 72650 Mean Corpuscular Hemoglobin Concent May 02, 2019 10:15am 28.6 g/dL 3337 MAIN LAB, [address] [place] [address] Mean Corpuscular Hemoglobin Concent October 02, 2019 10:38am 28.2 g/dL 33-37 MAIN LAB, [address] [place] [address] Red Cell Distribution Width May 02, 2019 10:15am 22.1 % 11.5-14.5 MAIN LAB, [address] [place] [address] Red Cell Distribution Width July 02, 2019 10:55am 21.7 % 11.5-14.5 MAIN LAB, [address] [place] [address] Red Cell Distribution Width October 02, 2019 10:38am 20.1 % 11.5-14.5 MAIN LAB, [address] [place] [address] 70241 Platelet Count July 02, 2019 10:55am 104 1000/mm3 140-440 MAIN LAB, [address] [place] [address] 66948 Platelet Count October 02, 2019 10:38am 118 1000/mm3 140-440 MAIN LAB, [address] [place] [address] 41586 Platelet Count May 02, 2019 10:15am 143 1000/mm3 140-440 MAIN LAB, [address] [place] [address] 41919 Mean Platelet Volume July 02, 2019 10:55am 10.4 fL 7.4-10.4 MAIN LAB, [address] [place] [address] 51884 Mean Platelet Volume October 02, 2019 10:38am 10.3 fL 7.4-10.4 MAIN LAB, [address] [place] [address] 47439 Mean Platelet Volume May 02, 2019 10:15am 11.5 fL 7.4-10.4 MAIN LAB, [address] [place] [address] 72585 Neutrophils (%) (Auto) July 02, 2019 10:55am 52.9 % 40.0-72.0 MAIN LAB, [address] [place] [address] 10900 Lymphocytes (%) (Auto) July 02, 2019 10:55am 22.5 % 17-45 MAIN LAB, [address] [place] [address] 81556 Monocytes (%) (Auto) July 02, 2019 10:55am 17.2 % 3-11 MAIN LAB, [address] [place] [address] 16018 Eosinophils (%) (Auto) July 02, 2019 10:55am 5.1 % 0-3 MAIN LAB, [address] [place] [address] 49533 Basophils (%) (Auto) July 02, 2019 10:55am 2.0 % 0-1 MAIN LAB, [address] [place] [address] 69782 Immature Granulocyte % (Auto) July 02, 2019 10:55am 0.3 % 0-1 MAIN LAB, [address] [place] [address] 70125 Neutrophils # (Auto) July 02, 2019 10:55am 1.88 1000/mm3 1.4-6.5 MAIN LAB, [address] [place] [address] 79070 Lymphocytes # (Auto) July 02, 2019 10:55am 0.80 1000/mm3 1.2-3.4 MAIN LAB, [address] [place] [address] 16647 Monocytes # (Auto) July 02, 2019 10:55am 0.61 1000/mm3 0.0-0.8 MAIN LAB, [address] [place] [address] 74484 Eosinophils # (Auto) July 02, 2019 10:55am 0.18 1000/mm3 0.0-0.7 MAIN LAB, [address] [place] [address] 53751 Basophils # (Auto) July 02, 2019 10:55am 0.07 1000/mm3 0.0-0.1 MAIN LAB, [address] [place] [address] 02272 Absolute Immature Granulocyte (auto July 02, 2019 10:55am 0.0 0-1 MAIN LAB, [address] [place], [place] [address] Differential Method July 02, 2019 10:55am Automated MAIN LAB, [address] [place] [address] Differential Pathologist's Review October 02, 2019 10:38am See comments Microcytic hypochromic anemia,suggest vamshi of iron deficiency. Anupam Stinson MD 10/03/19 MAIN LAB, [address] [place] [address] Prothrombin Time October 02, 2019 10:38am 12.1 SECONDS 9.6-11.2 MAIN LAB, [address] [place] [address] Prothromb Time International Ratio October 02, 2019 10:38am 1.2 2.0-3.0 INR value valid only on patients on stabilized warfarin therapy. The recommended therapeutic range for warfarin (Coumadin) for most clinical indications is an INR of 2.0-3.0. An INR of 2.5-3.5 is recommended for patients with mechanical heart valves. MAIN LAB, [address] [place] [address] Sodium Level May 02, 2019 10:15am 135 mmol/L 137-145 MAIN LAB, [address] [place] [address] Sodium Level October 02, 2019 10:38am 139 mmol/L 137-145 MAIN LAB, [address] [place] [address] Potassium Level May 02, 2019 10:15am 3.4 mmol/L 3.6-5.0 MAIN LAB, [address] [place] [address] Potassium Level October 02, 2019 10:38am 3.6 mmol/L 3.6-5.0 MAIN LAB, [address] [place] [address] 69190 Chloride Level October 02, 2019 10:38am 103 mmol/L 98-107 MAIN LAB, [address] [place] [address] 64559 Chloride Level May 02, 2019 10:15am 102 mmol/L 98-107 MAIN LAB, [address] [place] [address] 46923 Carbon Dioxide Level October 02, 2019 10:38am 28 mmol/L 22-30 MAIN LAB, [address] [place] [address] 03993 Carbon Dioxide Level May 02, 2019 10:15am 25 mmol/L 22-30 MAIN LAB, [address] [place] [address] 37835 Anion Gap October 02, 2019 10:38am 8 7-16 MAIN LAB, [address] [place] [address] 78626 Anion Gap May 02, 2019 10:15am 8 7-16 MAIN LAB, [address] [place] [address] 18075 Blood Urea Nitrogen October 02, 2019 10:38am 8 mg/dL 8-26 MAIN LAB, [address] [place] [address] 44246 Blood Urea Nitrogen May 02, 2019 10:15am 7 mg/dL 05-19 MAIN LAB, [address] [place] [address] 38177 Creatinine May 02, 2019 10:15am 0.73 mg/dL 0.66-1.25 MAIN LAB, [address] [place] [address] 90253 Creatinine October 02, 2019 10:38am 0.64 mg/dL 0.66-1.25 MAIN LAB, [address] [place], [place] [address] Glomerular Filtration Rate Calc May 02, 2019 10:15am > 60 mL/min >60.0 MAIN LAB, [address] [place] [address] Glomerular Filtration Rate Calc October 02, 2019 10:38am > 60 mL/min >60.0 MAIN LAB, [address] [place] [address] 34204 Glucose Level October 02, 2019 10:38am 103 mg/dL 70-100 MAIN LAB, [address] [place] [address] 69096 Glucose Level May 02, 2019 10:15am 93 mg/dL 70-100 MAIN LAB, [address] [place] [address] 98398 Calcium Level October 02, 2019 10:38am 8.2 mg/dL 8.4-10.2 MAIN LAB, [address] [place] [address] 13078 Calcium Level May 02, 2019 10:15am 8.0 mg/dL 8.4-10.2 MAIN LAB, [address] [place] [address] 57768 Calcium Adjusted for Albumin October 02, 2019 10:38am 8.7 mg/dL 8.4-10.2 MAIN LAB, [address] [place] [address] 65219 Calcium Adjusted for Albumin May 02, 2019 10:15am 9.1 mg/dL 8.4-10.2 MAIN LAB, [address] [place] [address] 94084 Transferrin May 02, 2019 10:15am 289 mg/dL 201-352 Test performed or referred by[id number] [place] [address] LABORATORIES [facility] October 02, 2019 10:38am 376 mg/dL 201-352 [facility] [facility] Total Bilirubin May 02, 2019 10:15am 1.6 mg/dL 0.2-1.3 MAIN LAB, [address] [place] [address] 25747 Total Bilirubin October 02, 2019 10:38am 1.0 mg/dL 0.2-1.3 MAIN LAB, [address] [place] [address] 08005 Aspartate Amino Transf (AST/SGOT) October 02, 2019 10:38am 83 U/L 17-59 MAIN LAB, [address] [place] [address] 93989 Aspartate Amino Transf (AST/SGOT) May 02, 2019 10:15am 95 U/L 17-59 MAIN LAB, [address] [place] [address] 94600 Alanine Aminotransfer ase (ALT/SGPT) October 02, 2019 10:38am 42 U/L 72 MAIN LAB, [address] [place] [address] 87397 Alanine Aminotransfer ase (ALT/SGPT) May 02, 2019 10:15am 66 U/L 72 MAIN LAB, [address] [place] [address] 01701 Total Protein October 02, 2019 10:38am 8.4 g/dL 6.3-8.2 MAIN LAB, [address] [place] [address] 23463 Total Protein May 02, 2019 10:15am 6.9 g/dL 6.3-8.2 MAIN LAB, [address] [place] [address] 76324 Albumin May 02, 2019 10:15am 2.9 g/dL 3.5-5.0 MAIN LAB, [address] [place] [address] 15699 Albumin October 02, 2019 10:38am 3.7 g/dL 3.5-5.0 MAIN LAB, [address] [place] [address] 70354 Alkaline Phosphatase May 02, 2019 10:15am 135 U/L 38-126 MAIN LAB, [address] [place] [address] 72415 Alkaline Phosphatase October 02, 2019 10:38am 118 U/L 38-126 MAIN LAB, [address] [place] [address] 36342 Thyroid Stimulating Hormone (TSH) October 02, 2019 10:38am 4.87 mlU/L 0.47-4.68 TSH cascade is not recommended for patients in which pituitary or hypothalmic disorders are suspected. MAIN LAB, [address] [place] [address] 69925 Thyroid Stimulating Hormone (TSH) May 02, 2019 10:15am 7.15 mlU/L 0.47-4.68 TSH cascade is not recommended for patients in which pituitary or hypothalmic disorders are suspected. MAIN LAB, [address] [place] [address] 36632 Free Thyroxine May 02, 2019 10:15am 1.25 ng/dL 0.78-2.19 MAIN LAB, [address] [place] [address] 72620 Free Thyroxine October 02, 2019 10:38am 1.16 ng/dL 0.78-2.19 MAIN LAB, [address] [place] [address] 14821 Hemoglobin A1c Percent May 02, 2019 10:15am 5.34 % <5.7%: Normal5.7%-6.4 %: Prediabetes>=6 .5%: Diagnostic for diabetesGoals for Glycemic Control in Diabetes (ADA 2018)<7.0%: A1c target for non adults with diabetes. More or less stringent glycemic goals may be appropriate for individual patients.<7.5% : A1c target for children and adolescents with type I diabetes. A lower goal is reasonable if it can be achieved without excessive hypoglycemia. MAIN LAB, [address] [place] [address] 66789 Hemoglobin A1c Percent October 02, 2019 10:38am 5.61 % <5.7 <5.7%: Normal5.7%-6.4 %: Prediabetes>=6 .5%: Diagnostic for diabetesGoals for Glycemic Control in Diabetes (ADA 2018)<7.0%: A1c target for non adults with diabetes. More or less stringent glycemic goals may be appropriate for individual patients.<7.5% : A1c target for children and adolescents with type I diabetes. A lower goal is reasonable if it can be achieved without excessive hypoglycemia. MAIN LAB, [address] [place] [address] 18134 Estimated Average Glucose mg/dL May 02, 2019 10:15am 107 mg/dL MAIN LAB, [address] [place] [address] 41682 Estimated Average Glucose mg/dL October 02, 2019 10:38am 114 mg/dL MAIN LAB, [address] [facility] [address] Ferritin October 02, 2019 10:38am 16.1 ng/mL 22-322 The results of this assay can be falsely decreased in patients who consume Biotin. MAIN LAB, [address] [facility] 98005 Ferritin May 02, 2019 10:15am 10.6 ng/mL 22-322 The results of this assay can be falsely decreased in patients who consume Biotin. MAIN LAB, [address] [facility] [address]241 Advance Directives Advance Directive Response Recorded Date/ Time Does patient have an Advanced Directive? No January 30, 2012 10:45am Do we have a copy on file here at [facility] No February 27, 2017 12:14pm Pt has a Living Will? No January 29 10:45am Do we have a copy on file here at [facility]? No February 27, 2017 12:14pm Pt has a Power of Ui Application Developer? No January 30, 2012 10:45am Do we have a copy on file here at [facility]? No February 27, 2017 12:14pm Chief Complaint and Reason for Visit Chief Complaint [id number] D64.9 Encounters Encounter Location(s) Arrival/Admit Date Discharge/Depart Date Provider(s) Departed Referred [facility] May 02, 2019 10:15am May 02, 2019 10:16am Camron Suarez MD Departed Referred [facility] July 02, 2019 7:14pm July 02, 2019 7:15pm MPAS CHECO Hernandez Departed Referred [facility] October 02, 2019 6:06pm October 02, 2019 6:07pm Camron Suarez MD Departed Referred [facility] March 04, 2020 6:11pm March 04, 2020 6:12pm Camron Suarez MD Assessments No Assessments Information Available Family History Relationship Condition Age at Onset Recorded Date/T joon Parent Family history non-contributory Unknown Cardiac disease Unknown Parent Cardiac disease Unknown Not Specified Cardiac disease Unknown Functional Status No Functional Status information available Goals Goals may be documented in an alternate section. Mental Status No Mental Status Information Available Medical Equipment No Medical Equipment Information available Insurance Providers Guarantor BERE EISENBERG Address [address] [place] [phone] Contact Info. Home Phone: Payer Policy Id Coverage Id Subscriber's Name Subscriber Id Effective Date Expiration Date [place] [id number] BERE EISENBERG [id number] SELF PAY Self N/A [place] MEDICAID (DO NOT USE) [id number] BERE EISENBERG [id number] 2016 Social History Smoking Status Status Date of Observation Ex-smoker (finding) October 01, 2018 9: 39am Observation Status Observation Response Date of Response Alcohol Heavy February 26, 2016 1 :28am Living Situation With Family January 30, 2016 9 :21am Alcohol Use Yes October 01 9:39am alcohol intake frequency 0-2 drinks per day March 18, 2018 2:18pm Substance/Street Drug Use No [place] y 2018 9:39am Smoking Status Former smoker October 01 9:39am Assigned Sex Male
--- OUTSIDE RECORDS SUMMARY | 2023-05-11 02:34 | XMS_ITS | Continuity of Care Document ---
Author Name Unknown Address [address] [place] [address] Phone [facility] Address [address] [place] [address] Phone Care Team Providers Care Supervisor Wet Pour Name Role Phone Camron Suarez Primary Care Provider [phone] Camron Suarez Attending Provider Mehdi London Attending Provider Allergies, Adverse Reactions, Alerts Allergen Type Severity Reaction Last Updated Verified Status aspirin Adverse Reaction Unknown bleeding September 03, 2015 Yes Active ibuprofen Adverse Reaction Unknown flank pain June 21, 2016 Yes Active acetaminophen Adverse Reaction makes sides ache October 01, 2018 Yes Active Medications Medication Status Dose Units Route Sig Qty Days Start Date End Date Instructions Hydrochlorothi azide/Triamter Discontinu ed 1 CAP ORAL DAILY February 29, 2012 8:27am July 16, 2018 5:50pm Pantoprazole Discontinu ed 40 MG ORAL TWICE A DAY February 01, 2016 10:05am July 16, 2018 5:49pm Take 1 tablet twice daily Phenobarbital Discontinu ed 16.2 MG ORAL TWICE A DAY February 01, 2016 10:11am February 01, 2016 6:24pm Take 1/2 tablet by mouth twice daily, first dose Phenobarbital Discontinu ed 32.4 MG ORAL THREE TIMES A DAY February 01, 2016 10:11am March 18, 2018 2:18pm Take 1 tablet by mouth every 8 hours (6AM, 2PM, 10PM) Phenobarbital Discontinu ed 16.2 MG ORAL TWICE A DAY February 01, 2016 6:24pm March 18, 2018 2:18pm Take 1/2 tablet by mouth twice daily, first dose 02/03/16 10AM Ferrous Sulfate Active 325 MG ORAL DAILY October 01, 2018 9:27am Triamterene-Hy drochlorothiaz id Active 1 TAB ORAL DAILY October 01, 2018 9:27am Ca Phos-Cranberry -Milk Thistle Active 1 TAB ORAL THREE TIMES A DAY October 01, 2018 9:27am Adqxyfes-Mxu-Y llm-Ocbhu-Vlh K1 Active 1 TAB ORAL DAILY October 01, 2018 9:27am Problems Active [...] 2015 Active Gastroesophageal reflux disease September 12, 018 Active Hypertension Active Arthralgia of right upper arm March 21, 2018 Ac tive Inactive/Resolved Problems Medical Problem Onset Date Status Tear of right biceps muscle Reso lved Relevant Diagnostic Tests and/or Laboratory Data Laboratory Results Test Date/Time Result Interpretation Reference Range Result Comment Performing Site White Blood Count 4.81 1000/mm3 4.8-10.8 MAIN LAB, [address] [place] [address] 34535 White Blood Count 3.55 1000/mm3 4.8-10.8 MAIN LAB, [address] [place] [address] 52292 White Blood Count 3.87 1000/mm3 4.8-10.8 MAIN LAB, [address] [place] [address] 27583 White Blood Count 4.01 1000/mm3 4.8-10.8 MAIN LAB, [address] [place] [address] 69962 White Blood Count 3.62 1000/mm3 4.8-10.8 MAIN LAB, [address] [place] [address] 43785 Red Blood Count 3.80 M/mm3 4.70-6.00 MAIN LAB, [address] [place] [address] 67856 Red Blood Count 5.10 M/mm3 4.70-6.00 MAIN LAB, [address] [place] [address] 58467 Red Blood Count 4.66 M/mm3 4.70-6.00 MAIN LAB, [address] [place] [address] 63786 Red Blood Count 4.29 M/mm3 4.70-6.00 MAIN LAB, [address] [place] [address] [place] [address] Red Blood Count 4.94 M/mm3 4.70-6.00 MAIN LAB, [address] [place] [address] [place] [address] Hemoglobin 11.7 g/dL 14.0-18.0 MAIN LAB, [address] [place] [address] [place] [address] Hemoglobin 8.9 g/dL 14.0-18.0 MAIN LAB, [address] [place] [address] [place] [address] Hemoglobin 8.5 g/dL 14.0-18.0 MAIN LAB, [address] [place] [address] [place] [address] Hemoglobin 9.0 g/dL 14.0-18.0 MAIN LAB, [address] [place] [address] [place] [address] Hemoglobin 10.3 g/dL 14.0-18.0 MAIN LAB, [address] [place] [address] [place] [address] Hematocrit 32.0 % 42-52 MAIN LAB, [address] [place] [address] [place] [address] Hematocrit 32.7 % 42-52 MAIN LAB, [address] [place] [address] [place] [address] Hematocrit 36.5 % 42-52 MAIN LAB, [address] [place] [address] [place] [address] Hematocrit 29.7 % 42-52 MAIN LAB, [address] [place] [address] [place] [address] Hematocrit 39.6 % 42-52 MAIN LAB, [address] [place] [address] [place] [address] Mean Corpuscular Volume 74.6 fL 80.0-94.0 Result confirmed by repeat analysis. MAIN LAB, [address] [place] [address] [place] [address] Mean Corpuscular Volume 77.6 fL 80.0-94.0 MAIN LAB, [address] [place] [address] [place] [address] Mean Corpuscular Volume 73.9 fL 80.0-94.0 MAIN LAB, [address] [place] [address] [place] [address] Mean Corpuscular Volume 78.2 fL 80.0-94.0 MAIN LAB, [address] [place] [address] [place] [address] Mean Corpuscular Volume 70.2 fL 80.0-94.0 MAIN LAB, [address] [place] [address] [place] [address] Mean Corpuscular Hemoglobin 22.4 pg 27-31 MAIN LAB, [address] [place] [address] [place] [address] Mean Corpuscular Hemoglobin 22.9 pg 27-31 MAIN LAB, [address] [facility] [address] Mean Corpuscular Hemoglobin 20.9 pg 27-31 MAIN LAB, [address] [facility] 23416 Mean Corpuscular Hemoglobin 19.3 pg 27-31 MAIN LAB, [address] [facility] 58848 Mean Corpuscular Hemoglobin 20.7 pg 27-31 Result confirmed by repeat analysis. --- 12/26/182024 ---[facility] previously reported as: 20.7 L pg MAIN LAB, [address] [facility] 19372 Mean Corpuscular Hemoglobin Concent 27.5 g/dL 33-37 MAIN LAB, [address] [place] [address] 79040 Mean Corpuscular Hemoglobin Concent 28.2 g/dL 33-37 MAIN LAB, [address] [place] [address] 83948 Mean Corpuscular Hemoglobin Concent 27.8 g/dL 33-37 MAIN LAB, [address] [facility] 12081 Mean Corpuscular Hemoglobin Concent 28.6 g/dL 33-37 MAIN LAB, [address] [facility] 12988 Mean Corpuscular Hemoglobin Concent 29.5 g/dL 33-37 MAIN LAB, [address] [place] [address] 53171 Red Cell Distribution Width 24.9 % 11.5-14.5 MAIN LAB, [address] [place] [address] 32473 Red Cell Distribution Width 21.7 % 11.5-14.5 MAIN LAB, [address] [facility] 35544 Red Cell Distribution Width 22.1 % 11.5-14.5 MAIN LAB, [address] [place] [address] 24494 Red Cell Distribution Width 20.1 % 11.5-14.5 MAIN LAB, [address] [facility] 70012 Red Cell Distribution Width 18.4 % 11.5-14.5 MAIN LAB, [address] [facility] 99281 Platelet Count 104 1000/mm3 140-440 MAIN LAB, [address] [facility] 04753 Platelet Count 107 1000/mm3 140-440 MAIN LAB, [address] [facility] 69578 Platelet Count 118 1000/mm3 140-440 MAIN LAB, [address] [place] [address] 80587 Platelet Count 143 1000/mm3 140-440 MAIN LAB, [address] [place] [address] 08010 Platelet Count 101 1000/mm3 140-440 MAIN LAB, [address] [place] [address] 66796 Mean Platelet Volume 11.5 fL 7.4-10.4 MAIN LAB, [address] [place] [address] 14941 Mean Platelet Volume 10.4 fL 7.4-10.4 MAIN LAB, [address] [place] [address] 60596 Mean Platelet Volume 10.3 fL 7.4-10.4 MAIN LAB, [address] [place] [address] 06670 Mean Platelet Volume 10.0 fL 7.4-10.4 MAIN LAB, [address] [place] [address] 18799 Mean Platelet Volume 10.9 fL 7.4-10.4 MAIN LAB, [address] [place] [address] 03014 Neutrophils (%) (Auto) 52.9 % 40.0-72.0 MAIN LAB, [address] [place] [address] 33036 Lymphocytes (%) (Auto) 22.5 % 17-45 MAIN LAB, [address] [place] [address] 58503 Monocytes (%) (Auto) 17.2 % 3-11 MAIN LAB, [address] [place] [address] 96518 Eosinophils (%) (Auto) 5.1 % 0-3 MAIN LAB, [address] [place] [address] 17392 Basophils (%) (Auto) 2.0 % 0-1 MAIN LAB, [address] [place] [address] 29837 Immature Granulocyte % (Auto) 0.3 % 0-1 MAIN LAB, [address] [place] [address] 92584 Neutrophils # (Auto) 1.88 1000/mm3 1.4-6.5 MAIN LAB, [address] [place] [address] 77639 Lymphocytes # (Auto) 0.80 1000/mm3 1.2-3.4 MAIN LAB, [address] [place] [address] 46366 Monocytes # (Auto) 0.61 1000/mm3 0.0-0.8 MAIN LAB, [address] [place] [address] 84753 Eosinophils # (Auto) 0.18 1000/mm3 0.0-0.7 MAIN LAB, [address] [place] [address] 23686 Basophils # (Auto) 0.07 1000/mm3 0.0-0.1 MAIN LAB, [address] [place] [address] 23261 Absolute Immature Granulocyte (auto 0.0 0-1 MAIN LAB, [address] [place] [address] Differential Method Automated MAIN LAB, [address] [place] [address] Platelet Estimate Adequate MAIN LAB, [address] [place] [address] 95465 Target Cells 2+ MAIN LAB, 1 [address] [facility] 58[address] Prothrombin Time 12.1 SECONDS 9.6-11.2 MAIN LAB, [address] [place] [address] Prothromb Time International Ratio 1.2 2.0-3.0 INR value valid only on patients on stabilized warfarin therapy. The recommended therapeutic range for warfarin (Coumadin) for most clinical indications is an INR of 2.0-3.0. An INR of 2.5-3.5 is recommended for patients with mechanical heart valves. MAIN LAB, [address] [place] [address] 56294 Sodium Level 139 mmol/L 137-145 MAIN LAB , [address] [place] [address] 81352 Sodium Level 136 mmol/L 137-145 MAIN LAB , [address] [place] [address] 56409 Sodium Level 135 mmol/L 137-145 MAIN LAB , [address] [place] [address] 06671 Sodium Level 136 mmol/L 137-145 MAIN LAB , [address] [place] [address] 79641 Potassium Level 4.1 mmol/L 3.6-5.0 MAIN LAB, [address] [place] [address] 87497 Potassium Level 3.5 mmol/L 3.6-5.0 MAIN LAB, [address] [place] [address] 03485 Potassium Level 3.6 mmol/L 3.6-5.0 MAIN LAB, [address] [place] [address] 09596 Potassium Level 3.4 mmol/L 3.6-5.0 MAIN LAB, [address] [place] [address] 92777 Chloride Level 103 mmol/L 98-107 MAIN LAB, [address] [place] [address] 58991 Chloride Level 103 mmol/L 98-107 MAIN LAB, [address] [place] [address] 82412 Chloride Level 101 mmol/L 98-107 MAIN LAB, [address] [place] [address] 63506 Chloride Level 102 mmol/L 98-107 MAIN LAB, [address] [place] [address] 36274 Carbon Dioxide Level 25 mmol/L 22-30 MAIN LAB, [address] [place] [address] 49691 Carbon Dioxide Level 28 mmol/L 22-30 MAIN LAB, [address] [place] [address] 66974 Carbon Dioxide Level 28 mmol/L 22-30 MAIN LAB, [address] [place] [address] 04420 Carbon Dioxide Level 27 mmol/L 22-30 MAIN LAB, [address] [place] [address] 54152 Anion Gap 7 7-16 MAIN LAB, [address] [place] [address] 92392 Anion Gap 8 7-16 MAIN LAB, [address] [place] [address] 01404 Anion Gap 6 7-16 MAIN LAB, [address] [place] [address] 96038 Anion Gap 8 7-16 MAIN LAB, [address] [place] [address] 75845 Blood Urea Nitrogen 7 mg/dL 8-26 MAIN LAB, [address] [place] [address] 71984 Blood Urea Nitrogen 10 mg/dL 8-26 MAIN LAB, [address] [place] [address] 51638 Blood Urea Nitrogen 7 mg/dL 8-26 MAIN LAB, [address] [place] [address] 24147 Blood Urea Nitrogen 8 mg/dL 8-26 MAIN LAB, [address] [place] [address] 72573 Creatinine 0.73 mg/dL 0.66-1.25 MAIN LAB , [address] [place] [address] 89145 Creatinine 0.77 mg/dL 0.66-1.25 MAIN LAB , [address] [place] [address] 37077 Creatinine 0.64 mg/dL 0.66-1.25 MAIN LAB , [address] [place] [address] 95772 Creatinine 0.73 mg/dL 0.66-1.25 MAIN LAB , [address] [place] [address] 31812 Glomerular Filtration Rate Calc > 60 mL/min >60.0 MAIN LAB, [address] [place] [address] 84646 Glomerular Filtration Rate Calc > 60 mL/min >60.0 MAIN LAB, [address] [place] [address] 33883 Glomerular Filtration Rate Calc > 60 mL/min >60.0 MAIN LAB, [address] [place] [address] 55558 Glomerular Filtration Rate Calc > 60 mL/min >60.0 MAIN LAB, [address] [place] [address] 83276 Glucose Level 108 mg/dL 70-100 MAIN LAB , [address] [place] [address] 03445 Glucose Level 93 mg/dL 70-100 MAIN LAB, [address] [place] [address] 10723 Glucose Level 103 mg/dL 70-100 MAIN LAB , [address] [place] [address] 69296 Glucose Level 103 mg/dL 70-100 MAIN LAB , [address] [place] [address] 67370 Calcium Level 8.8 mg/dL 8.4-10.2 MAIN [place] B, [address] [place] [address] 01737 Calcium Level 8.2 mg/dL 8.4-10.2 MAIN [place] B, [address] [place] [address] 06654 Calcium Level 8.9 mg/dL 8.4-10.2 MAIN [place] B, [address] [place] [address] 07994 Calcium Level 8.0 mg/dL 8.4-10.2 MAIN [place] B, [address] [place] [address] 13098 Calcium Adjusted for Albumin 9.6 mg/dL 8.4-10.2 MAIN LAB, [address] [place] [address] 27952 Calcium Adjusted for Albumin 8.7 mg/dL 8.4-10.2 MAIN LAB, [address] [place] [address] 69959 Calcium Adjusted for Albumin 9.5 mg/dL 8.4-10.2 MAIN LAB, [address] [place] [address] 30688 Calcium Adjusted for Albumin 9.1 mg/dL 8.4-10.2 MAIN LAB, [address] [place] [address] 95383 Transferrin 289 mg/dL 201-352 Test per formed or referred by[id number] [place] [address] Transferrin 337 mg/dL 201-352 Test per formed or referred [address] [address] Total Bilirubin 1.4 mg/dL 0.2-1.3 MAIN LAB, [address] [place] [address] 76508 Total Bilirubin 2.2 mg/dL 0.2-1.3 MAIN LAB, [address] [place] [address] 60218 Total Bilirubin 1.6 mg/dL 0.2-1.3 MAIN LAB, [address] [place] [address] 20197 Total Bilirubin 1.0 mg/dL 0.2-1.3 MAIN LAB, [address] [place] [address] 98144 Aspartate Amino Transf (AST/SGOT) 72 U/L MAIN LAB, [address] [place] [address] 61156 Aspartate Amino Transf (AST/SGOT) 95 U/L MAIN LAB, [address] [place] [address] 43772 Aspartate Amino Transf (AST/SGOT) 83 U/L MAIN LAB, [address] [place] [address] 42257 Aspartate Amino Transf (AST/SGOT) 71 U/L MAIN LAB, [address] [place] [address] 81134 Alanine Aminotransfer ase (ALT/SGPT) 37 U/L MAIN LAB, [address] [place] [address] 47397 Alanine Aminotransfer ase (ALT/SGPT) 66 U/L MAIN LAB, [address] [place] [address] 95505 Alanine Aminotransfer ase (ALT/SGPT) 40 U/L MAIN LAB, [address] [place] [address] 03713 Alanine Aminotransfer ase (ALT/SGPT) 42 U/L MAIN LAB, [address] [place] [address] 48276 Total Protein 8.0 g/dL 6.3-8.2 MAIN LAB, [address] [place] [address] 65637 Total Protein 6.9 g/dL 6.3-8.2 MAIN LAB, [address] [place] [address] 55438 Total Protein 8.4 g/dL 6.3-8.2 MAIN LAB, [address] [place] [address] 60132 Total Protein 8.3 g/dL 6.3-8.2 MAIN LAB, [address] [place] [address] 71204 Albumin 3.7 g/dL 3.5-5.0 MAIN LAB, [address] [place] [address] 72521 Albumin 3.6 g/dL 3.5-5.0 MAIN LAB, [address] [place] [address] 75507 Albumin 2.9 g/dL 3.5-5.0 MAIN LAB, [address] [place] [address] 43649 Albumin 3.3 g/dL 3.5-5.0 MAIN LAB, [address] [place] [address] 61250 Cholesterol Level 110 mg/dL 59-199 MAIN LAB, [address] [place] [address] 59106 HDL Cholesterol 46 mg/dL 40-60 The National Cholesterol Education Program (NCEP) has set the following guidelines (reference values) for cholesterol, HDL:Low HDL: <40 mg/dLNormal: 40-60 mg/dLDesirable : >60 mg/dL MAIN LAB, [address] [place] [address] 23250 LDL Cholesterol 50.0 mg/dL 0-129 MAIN LAB, [address] [place] [address] 03201 VLDL Cholesterol 14.0 mg/dL 0-32 MAIN LAB, [address] [place] [address] 29071 Cholesterol/H DL Ratio 2.39 0-3.9 MAIN LAB, [address] [place] [address] 26083 Triglycerides Level 70 mg/dL 0-149 MAIN LAB, [address] [place] [address] 80013 Alkaline Phosphatase 135 U/L 38-126 MAIN LAB, [address] [place] [address] 44419 Alkaline Phosphatase 118 U/L 38-126 MAIN LAB, [address] [place] [address] 79186 Alkaline Phosphatase 145 U/L 38-126 MAIN LAB, [address] [place] [address] 89238 Alkaline Phosphatase 122 U/L 38-126 MAIN LAB, [address] [place] [address] 27572 Thyroid Stimulating Hormone (TSH) 7.15 mlU/L 0.47-4.68 TSH cascade is not recommended for patients in which pituitary or hypothalmic disorders are suspected. MAIN LAB, [address] [place] [address] 45438 Thyroid Stimulating Hormone (TSH) 7.81 mlU/L 0.47-4.68 TSH cascade is not recommended for patients in which pituitary or hypothalmic disorders are suspected. MAIN LAB, [address] [place] [address] 84570 Thyroid Stimulating Hormone (TSH) 5.63 mlU/L 0.47-4.68 TSH cascade is not recommended for patients in which pituitary or hypothalmic disorders are suspected. MAIN LAB, [address] [place] [address] 92992 Thyroid Stimulating Hormone (TSH) 4.87 mlU/L 0.47-4.68 TSH cascade is not recommended for patients in which pituitary or hypothalmic disorders are suspected. MAIN LAB, [address] [place] [address] 28486 Free Thyroxine 1.25 ng/dL 0.78-2.19 MAIN LAB, [address] [place] [address] 87184 Free Thyroxine 1.12 ng/dL 0.78-2.19 MAIN LAB, [address] [place] [address] 47351 Free Thyroxine 1.16 ng/dL 0.78-2.19 MAIN LAB, [address] [place] [address] 23311 Free Thyroxine 0.96 ng/dL 0.78-2.19 MAIN LAB, [address] [place] [address] 67575 Hemoglobin A1c Percent 5.34 % <5.7%: Normal5.7%-6.4 %: Prediabetes>=6 .5%: Diagnostic for diabetesGoals for Glycemic Control in Diabetes (ADA 2018)<7.0%: A1c target for non adults with diabetes. More or less stringent glycemic goals may be appropriate for individual patients.<7.5% : A1c target for children and adolescents with type I diabetes. A lower goal is reasonable if it can be achieved without excessive hypoglycemia. MAIN LAB, [address] [place] [address] 76646 Hemoglobin A1c Percent 5.61 % <5.7 <5.7%: Normal5.7%-6.4 %: Prediabetes>=6 .5%: Diagnostic for diabetesGoals for Glycemic Control in Diabetes (ADA 2018)<7.0%: A1c target for non adults with diabetes. More or less stringent glycemic goals may be appropriate for individual patients.<7.5% : A1c target for children and adolescents with type I diabetes. A lower goal is reasonable if it can be achieved without excessive hypoglycemia. MAIN LAB, [address] [place] [address] 11801 Hemoglobin A1c Percent 5.43 % <5.7%: Normal5.7%-6.4 %: Prediabetes>=6 .5%: Diagnostic for diabetesGoals for Glycemic Control in Diabetes (ADA 2018)<7.0%: A1c target for non adults with diabetes. More or less stringent glycemic goals may be appropriate for individual patients.<7.5% : A1c target for children and adolescents with type I diabetes. A lower goal is reasonable if it can be achieved without excessive hypoglycemia. MAIN LAB, [address] [facility] 0[address] Estimated Average Glucose mg/dL 109 mg/dL MAIN LAB, 1 [address] [facility] 33801 Estimated Average Glucose mg/dL 107 mg/dL MAIN LAB, [address] [place] [address] [place] [address] Estimated Average Glucose mg/dL 114 mg/dL MAIN LAB, [address] [place] [address] 46894 Ferritin 16.1 ng/mL 22-322 The resul ts of this assay can be falsely decreased in patients who consume Biotin. MAIN LAB, [address] [facility] 00843 Ferritin 10.9 ng/mL 22-322 The resul ts of this assay can be falsely decreased in patients who consume Biotin. MAIN LAB, [address] [facility] 77803 Ferritin 10.6 ng/mL 22-322 The resul ts of this assay can be falsely decreased in patients who consume Biotin. MAIN LAB, [address] [facility] [place] [address] Advance Directives Advance Directive Response Recorded Date/ Time Does patient have an Advanced Directive? No January 30, 2012 10:45am Do we have a copy on file here at [facility]? No February 27, 2017 12:14pm Pt has a Living Will? No January 29 10:45am Do we have a copy on file here at [facility]? No February 27, 2017 12:14pm Pt has a Power of Undercutter? No January 30, 2012 10:45am Do we have a copy on file here at [facility]? No February 27, 2017 12:14pm Chief Complaint and Reason for Visit Chief Complaint [id number] Encounters Encounter Location(s) Arrival/Admit Date Discharge/Depart Date Provider(s) Departed Referred [facility] October 08, 2018 9:42am October 08, 2018 9:43am Camron Suarez MD Departed Referred [facility] December 26, 2018 10:27am December 26, 2018 10:28am Camron Suarez MD Departed Referred [facility] May 02, 2019 10:15am May 02, 2019 10:16am Camron Suarez MD Departed Referred [facility] July 02, 2019 7:14pm July 02, 2019 7:15pm MPAS CHECO Hernandez Departed Referred [facility] October 02, 2019 6:06pm October 02, 2019 6:07pm Camron Suarez MD Assessments No Assessments Information [...] Guarantor BERE EISENBERG Address [address] [place] [address] Contact Info. Home Phone: Payer Policy Id Coverage Id Subscriber's Name Subscriber Id Effective Date Expiration Date [place] [id number] BERE EISENBERG [id number] SELF PAY Self N/A [place] MEDICAID (DO NOT USE) [id number] BERE EISENBERG [id number] 2016 Plan of Treatment Future Tests Future scheduled test information is unavailable Pending Tests Pending diagnostic test information is unavailable Future Visits Future appointment information is unavailable Referrals to Other Providers Reason for Referral Referral Start Date Provider Provider Contact Information Provider Address [facility] Work Phone: [facility] Medical Office Building [address] [facility] [address] [facility] [address] Camron Suarez MD Work Julienne ne: [address] [facility] [address] Future Procedures Future procedure information is unavailable [...] 18, 2018 2:18pm Substance/Street Drug Use No Januar y 2018 9:39am Smoking Status Former smoker October 01 9:39am Assigned Sex Male
--- OUTSIDE RECORDS SUMMARY | 2023-05-11 02:34 | XMS_ITS | Continuity of Care Document ---
Author Name Unknown Address [address] [place] [address] Phone [facility] Address [address] [place] [address] Phone Care Team Providers Care Supervisor Dried Yeast Name Role Phone Camron Suarez Primary Care Provider [phone] Camron Suarez Attending Provider [phone] Mehdi London Attending Provider Jia Bledsoe Attending [...] TIMES A DAY October 01, 2018 9:27am Alxtzyuy-Gwj-W hjb-Kiolz-Azm K1 (Centrum Chewables) 8 mg-400 mcg- 10 [...] Result Comment Performing Site White Blood Count October 02, 2019 10:38am 3.62 1000/mm3 4.8-10.8 MAIN LAB, [address] [place] [address] 85736 White Blood Count July 02, 2019 10:55am 3.55 1000/mm3 4.8-10.8 MAIN LAB, [address] [place] [address] 03527 White Blood Count April 30, 2020 11:35am 3.94 1000/mm3 4.8-10.8 MAIN LAB, [address] [place] [address] 15064 White Blood Count May 02, 2019 10:15am 4.81 1000/mm3 4.8-10.8 MAIN LAB, [address] [place] [address] 00038 Red Blood Count April 30, 2020 11:35am 5.54 M/mm3 4.70-6.00 MAIN LAB, [address] [place] [address] 65379 Red Blood Count July 02, 2019 10:55am 4.66 M/mm3 4.70-6.00 MAIN LAB, [address] [place] [address] 83812 Red Blood Count October 02, 2019 10:38am 4.94 M/mm3 4.70-6.00 MAIN LAB, [address] [place] [address] 10994 Red Blood Count May 02, 2019 10:15am 3.80 M/mm3 4.70-6.00 MAIN LAB, [address] [place] [address] 31055 Hemoglobin October 02, 2019 10:38am 10.3 g/dL 14.0-18.0 MAIN LAB, [address] [place] [address] 55756 Hemoglobin May 02, 2019 10:15am 8.5 g/dL 14.0-18.0 MAIN LAB, [address] [place] [address] 36784 Hemoglobin April 30, 2020 11:35am 13.3 g/dL 14.0-18.0 MAIN LAB, [address] [place] [address] 22439 Hemoglobin July 02, 2019 10:55am 9.0 g/dL 14.0-18.0 MAIN LAB, [address] [place] [address] 18390 Hematocrit May 02, 2019 10:15am 29.7 % 42-52 MAIN LAB, [address] [place] [address] 66679 Hematocrit October 02, 2019 10:38am 36.5 % 42-52 MAIN LAB, [address] [place] [address] 62396 Hematocrit July 02, 2019 10:55am 32.7 % 42-52 MAIN LAB, [address] [place] [address] 48129 Hematocrit April 30, 2020 11:35am 44.4 % 42-52 MAIN LAB, [address] [place] [address] 46218 Mean Corpuscular Volume April 30, 2020 11:35am 80.1 fL 80.0-94.0 MAIN LAB, [address] [place] [address] 06085 Mean Corpuscular Volume July 02, 2019 10:55am 70.2 fL 80.0-94.0 MAIN LAB, [address] [place] [address] [place] [address] Mean Corpuscular Volume October 02, 2019 10:38am 73.9 fL 80.0-94.0 MAIN LAB, [address] [place] [address] 45969 Mean Corpuscular Volume May 02, 2019 10:15am 78.2 fL 80.0-94.0 MAIN LAB, [address] [place] [address] 89349 Mean Corpuscular Hemoglobin April 30, 2020 11:35am 24.0 pg 27-31 MAIN LAB, [address] [place] [address] 23227 Mean Corpuscular Hemoglobin May 02, 2019 10:15am 22.4 pg 27-31 MAIN LAB, [address] [place] [address] 31301 Mean Corpuscular Hemoglobin July 02, 2019 10:55am 19.3 pg 27-31 MAIN LAB, [address] [place] [address] 03718 Mean Corpuscular Hemoglobin October 02, 2019 10:38am 20.9 pg 27-31 MAIN LAB, [address] [place] [address] 66325 Mean Corpuscular Hemoglobin Concent April 30, 2020 11:35am 30.0 g/dL -37 MAIN LAB, [address] [place] [address] 00986 Mean Corpuscular Hemoglobin Concent May 02, 2019 10:15am 28.6 g/dL 33-37 MAIN LAB, [address] [place] [address] 64411 Mean Corpuscular Hemoglobin Concent July 02, 2019 10:55am 27.5 g/dL 33-37 MAIN LAB, [address] [place] [address] 86322 Mean Corpuscular Hemoglobin Concent October 02, 2019 10:38am 28.2 g/dL 33-37 MAIN LAB, [address] [place] [address] 01766 Red Cell Distribution Width October 02, 2019 10:38am 20.1 % 11.5-14.5 MAIN LAB, [address] [place] [address] 67437 Red Cell Distribution Width July 02, 2019 10:55am 21.7 % 11.5-14.5 MAIN LAB, [address] [place] [address] 88400 Red Cell Distribution Width April 30, 2020 11:35am 20.5 % 11.5-14.5 MAIN LAB, [address] [place] [address] 51420 Red Cell Distribution Width May 02, 2019 10:15am 22.1 % 11.5-14.5 MAIN LAB, [address] [place] [address] 32764 Platelet Count April 30, 2020 11:35am 115 1000/mm3 140-440 MAIN LAB, [address] [place] [address] 02955 Platelet Count May 02, 2019 10:15am 143 1000/mm3 140-440 MAIN LAB, [address] [place] [address] 93784 Platelet Count October 02, 2019 10:38am 118 1000/mm3 140-440 MAIN LAB, [address] [place] [address] 27426 Platelet Count July 02, 2019 10:55am 104 1000/mm3 140-440 MAIN LAB, [address] [place] [address] 88226 Mean Platelet Volume July 02, 2019 10:55am 10.4 fL 7.4-10.4 MAIN LAB, [address] [place] [address] Mean Platelet Volume October 02, 2019 10:38am 10.3 fL 7.4-10.4 MAIN LAB, [address] [place] [address] 73033 Mean Platelet Volume May 02, 2019 10:15am 11.5 fL 7.4-10.4 MAIN LAB, [address] [place] [address] 07792 Mean Platelet Volume April 30, 2020 11:35am 10.8 fL 7.4-10.4 MAIN LAB, [address] [place] [address] 27197 Neutrophils (%) (Auto) April 30, 2020 11:35am 49.9 % 40.0-72.0 MAIN LAB, [address] [place] [address] 05197 Neutrophils (%) (Auto) July 02, 2019 10:55am 52.9 % 40.0-72.0 MAIN LAB, [address] [place] [address] 66120 Lymphocytes (%) (Auto) April 30, 2020 11:35am 30.2 % 17-45 MAIN LAB, [address] [place] [address] 26840 Lymphocytes (%) (Auto) July 02, 2019 10:55am 22.5 % 17-45 MAIN LAB, [address] [place] [address] 44549 Monocytes (%) (Auto) July 02, 2019 10:55am 17.2 % 3-11 MAIN LAB, [address] [place] [address] 10604 Monocytes (%) (Auto) April 30, 2020 11:35am 12.2 % 3-11 MAIN LAB, [address] [place] [address] 48987 Eosinophils (%) (Auto) April 30, 2020 11:35am 5.6 % 0-3 MAIN LAB, [address] [place] [address] 88368 Eosinophils (%) (Auto) July 02, 2019 10:55am 5.1 % 0-3 MAIN LAB, [address] [place] [address] 77558 Basophils (%) (Auto) April 30, 2020 11:35am 1.8 % 0-1 MAIN LAB, [address] [place] [address] 56758 Basophils (%) (Auto) July 02, 2019 10:55am 2.0 % 0-1 MAIN LAB, [address] [place] [address] 20322 Immature Granulocyte % (Auto) July 02, 2019 10:55am 0.3 % 0-1 MAIN LAB, [address] [place] [address] 50422 Immature Granulocyte % (Auto) April 30, 2020 11:35am 0.3 % 0-1 MAIN LAB, [address] [place] [address] 91064 Neutrophils # (Auto) April 30, 2020 11:35am 1.97 1000/mm3 1.4-6.5 MAIN LAB, [address] [place] [address] 44840 Neutrophils # (Auto) July 02, 2019 10:55am 1.88 1000/mm3 1.4-6.5 MAIN LAB, [address] [place] [address] 80059 Lymphocytes # (Auto) July 02, 2019 10:55am 0.80 1000/mm3 1.2-3.4 MAIN LAB, [address] [place] [address] 81702 Lymphocytes # (Auto) April 30, 2020 11:35am 1.19 1000/mm3 1.2-3.4 MAIN LAB, [address] [place] [address] 37667 Monocytes # (Auto) April 30, 2020 11:35am 0.48 1000/mm3 0.0-0.8 MAIN LAB, [address] [place] [address] 45625 Monocytes # (Auto) July 02, 2019 10:55am 0.61 1000/mm3 0.0-0.8 MAIN LAB, [address] [place] [address] 45008 Eosinophils # (Auto) July 02, 2019 10:55am 0.18 1000/mm3 0.0-0.7 MAIN LAB, [address] [place] [address] 52996 Eosinophils # (Auto) April 30, 2020 11:35am 0.22 1000/mm3 0.0-0.7 MAIN LAB, [address] [place] [address] 31356 Basophils # (Auto) July 02, 2019 10:55am 0.07 1000/mm3 0.0-0.1 MAIN LAB, [address] [place] [address] 67463 Basophils # (Auto) April 30, 2020 11:35am 0.07 1000/mm3 0.0-0.1 MAIN LAB, [address] [place], [place] [address] Absolute Immature Granulocyte (auto July 02, 2019 10:55am 0.0 0-1 MAIN LAB, [address] [place] [address] 43596 Absolute Immature Granulocyte (auto April 30, 2020 11:35am 0.0 0-1 MAIN LAB, [address] [place], [place] [address] Differential Method April 30, 2020 11:35am Automated MAIN LAB, [address] [place] [address] Differential Method July 02, 2019 10:55am Automated MAIN LAB, [address] [place] [address] Differential Pathologist' s Review October 02, 2019 10:38am See comments Microcytic hypochromic anemia,suggesti ve of iron deficiency. Anupam Stinson MD 10/03/19 MAIN LAB, [address] [place], [place] [address] Prothrombin Time October 02, 2019 10:38am 12.1 SECONDS 9.6-11.2 MAIN LAB, [address] [place] [address] Prothromb Time Internationa l Ratio October 02, 2019 10:38am 1.2 2.0-3.0 INR value valid only on patients on stabilized warfarin therapy. The recommended therapeutic range for warfarin (Coumadin) for most clinical indications is an INR of 2.0-3.0. An INR of 2.5-3.5 is recommended for patients with mechanical heart valves. MAIN LAB, [address] [place] [address] 67405 Sodium Level May 02, 2019 10:15am 135 mmol/L 137-145 MAIN LAB, [address] [place] [address] 78433 Sodium Level April 30, 2020 11:35am 138 mmol/L 137-145 MAIN LAB, [address] [place] [address] 66025 Sodium Level October 02, 2019 10:38am 139 mmol/L 137-145 MAIN LAB, [address] [place] [address] 25248 Potassium Level May 02, 2019 10:15am 3.4 mmol/L 3.6-5.0 MAIN LAB, [address] [place] [address] 19050 Potassium Level October 02, 2019 10:38am 3.6 mmol/L 3.6-5.0 MAIN LAB, [address] [place] [address] 43085 Potassium Level April 30, 2020 11:35am 3.7 mmol/L 3.6-5.0 MAIN LAB, [address] [place] [address] 14368 Chloride Level April 30, 2020 11:35am 102 mmol/L 98-107 MAIN LAB, [address] [place] [address] 39592 Chloride Level May 02, 2019 10:15am 102 mmol/L 98-107 MAIN LAB, [address] [place] [address] 64584 Chloride Level October 02, 2019 10:38am 103 mmol/L 98-107 MAIN LAB, [address] [place] [address] 37694 Carbon Dioxide Level April 30, 2020 11:35am 27 mmol/L 22-30 MAIN LAB, [address] [place] [address] 90710 Carbon Dioxide Level May 02, 2019 10:15am 25 mmol/L 22-30 MAIN LAB, [address] [place] [address] 42860 Carbon Dioxide Level October 02, 2019 10:38am 28 mmol/L 22-30 MAIN LAB, [address] [place] [address] 58070 Anion Gap October 02, 2019 10:38am 8 7-16 MAIN LAB, [address] [place] [address] 61450 Anion Gap May 02, 2019 10:15am 8 7-16 MAIN LAB, [address] [place] [address] 75499 Anion Gap April 30, 2020 11:35am 9 7-16 MAIN LAB, [address] [place] [address] Blood Urea Nitrogen October 02, 2019 10:38am 8 mg/dL 8- MAIN LAB, [address] [place] [address] 96067 Blood Urea Nitrogen April 30, 2020 11:35am 13 mg/dL 8- MAIN LAB, [address] [place] [address] 39494 Blood Urea Nitrogen May 02, 2019 10:15am 7 mg/dL 8- MAIN LAB, [address] [place] [address] 04161 Creatinine May 02, 2019 10:15am 0.73 mg/dL 0.66-1.25 MAIN LAB, [address] [place] [address] 55987 Creatinine April 30, 2020 11:35am 0.72 mg/dL 0.66-1.25 MAIN LAB, [address] [place] [address] 90923 Creatinine October 02, 2019 10:38am 0.64 mg/dL 0.66-1.25 MAIN LAB, [address] [place] [address] Glomerular Filtration Rate Calc May 02, 2019 10:15am > 60 mL/min >60.0 MAIN LAB, [address] [place] [address] 62052 Glomerular Filtration Rate Calc April 30, 2020 11:35am > 60 mL/min >60.0 MAIN LAB, [address] [place] [address] Glomerular Filtration Rate Calc October 02, 2019 10:38am > 60 mL/min >60.0 MAIN LAB, [address] [place] [address] Glucose Level April 30, 2020 11:35am 85 mg/dL 70-100 MAIN LAB, [address] [place] [address] 36541 Glucose Level October 02, 2019 10:38am 103 mg/dL 70-100 MAIN LAB, [address] [place] [address] 52433 Glucose Level May 02, 2019 10:15am 93 mg/dL 70-100 MAIN LAB, [address] [place] [address] 03428 Calcium Level April 30, 2020 11:35am 8.9 mg/dL 8.4-10.2 MAIN LAB, [address] [place] [address] 55458 Calcium Level May 02, 2019 10:15am 8.0 mg/dL 8.4-10.2 MAIN LAB, [address] [place] [address] 04329 Calcium Level October 02, 2019 10:38am 8.2 mg/dL 8.4-10.2 MAIN LAB, [address] [place] [address] 45583 Calcium Adjusted for Albumin April 30, 2020 11:35am 8.8 mg/dL 8.4-10.2 MAIN LAB, [address] [place] [address] 52839 Calcium Adjusted for Albumin May 02, 2019 10:15am 9.1 mg/dL 8.4-10.2 MAIN LAB, [address] [place] [address] 02963 Calcium Adjusted for Albumin October 02, 2019 10:38am 8.7 mg/dL 8.4-10.2 MAIN LAB, [address] [place] [address] 38279 Transferrin May 02, 2019 10:15am 289 mg/dL 201-352 Test performed or referred by[address] Transferrin October 02, 2019 10:38am 376 mg/dL 201-352 Test performed or referred by[address] Total Bilirubin May 02, 2019 10:15am 1.6 mg/dL 0.2-1.3 MAIN LAB, [address] [place] [address] 71576 Total Bilirubin April 30, 2020 11:35am 1.1 mg/dL 0.2-1.3 MAIN LAB, [address] [place] [address] 87260 Total Bilirubin October 02, 2019 10:38am 1.0 mg/dL 0.2-1.3 MAIN LAB, [address] [place] [address] 91812 Aspartate Amino Transf (AST/SGOT) May 02, 2019 10:15am 95 U/L 17-59 MAIN LAB, [address] [place] [address] 75567 Aspartate Amino Transf (AST/SGOT) October 02, 2019 10:38am 83 U/L 17-59 MAIN LAB, [address] [place] [address] 71086 Aspartate Amino Transf (AST/SGOT) April 30, 2020 11:35am 83 U/L 17-59 MAIN LAB, [address] [place] [address] 21887 Alanine Aminotransfe rase (ALT/SGPT) October 02, 2019 10:38am 42 U/L MAIN LAB, [address] [place] [address] 68078 Alanine Aminotransfe rase (ALT/SGPT) April 30, 2020 11:35am 37 U/L <50 As of 01/23/20, the Reference Range for ALT/SGPT for adult patients has been updated. The Reference Range for ALT/SGPT has not been established for patients <18 years of age. MAIN LAB, [address] [place] [address] Alanine Aminotransfe rase (ALT/SGPT) May 02, 2019 10:15am 66 U/L MAIN LAB, [address] [place], [place] [address] Total Protein May 02, 2019 10:15am 6.9 g/dL 6.3-8.2 MAIN LAB, [address] [place], [place] [address] Total Protein April 30, 2020 11:35am 8.4 g/dL 6.3-8.2 MAIN LAB, [address] [place] [address] 14912 Total Protein October 02, 2019 10:38am 8.4 g/dL 6.3-8.2 MAIN LAB, [address] [place] [address] 96943 Albumin May 02, 2019 10:15am 2.9 g/dL 3.5-5.0 MAIN LAB, [address] [place] [address] 00775 Albumin October 02, 2019 10:38am 3.7 g/dL 3.5-5.0 MAIN LAB, [address] [place] [address] 47758 Albumin April 30, 2020 11:35am 4.4 g/dL 3.5-5.0 MAIN LAB, [address] [place] [address] 45659 Alkaline Phosphatase October 02, 2019 10:38am 118 U/L 38-126 MAIN LAB, [address] [place] [address] 69619 Alkaline Phosphatase May 02, 2019 10:15am 135 U/L 38-126 MAIN LAB, [address] [place] [address] 87935 Alkaline Phosphatase April 30, 2020 11:35am 123 U/L 38-126 MAIN LAB, [address] [place] [address] 96810 Thyroid Stimulating Hormone (TSH) May 02, 2019 10:15am 7.15 mlU/L 0.47-4.68 TSH cascade is not recommended for patients in which pituitary or hypothalmic disorders are suspected. MAIN LAB, [address] [place] [address] 16946 Thyroid Stimulating Hormone (TSH) October 02, 2019 10:38am 4.87 mlU/L 0.47-4.68 TSH cascade is not recommended for patients in which pituitary or hypothalmic disorders are suspected. MAIN LAB, [address] [place] [address] 88870 Free Thyroxine October 02, 2019 10:38am 1.16 ng/dL 0.78-2.19 MAIN LAB, [address] [place] [address] 06079 Free Thyroxine May 02, 2019 10:15am 1.25 ng/dL 0.78-2.19 MAIN LAB, [address] [place] [address] 39482 Hemoglobin A1c Percent October 02, 2019 10:38am 5.61 % <5.7 <5.7%: Normal5.7%-6.4% : Prediabetes>=6. 5%: Diagnostic for diabetesGoals for Glycemic Control in Diabetes (ADA 2018)<7.0%: A1c target for non adults with diabetes. More or less stringent glycemic goals may be appropriate for individual patients.<7.5%: A1c target for children and adolescents with type I diabetes. A lower goal is reasonable if it can be achieved without excessive hypoglycemia. MAIN LAB, [address] [place] [address] 51179 Hemoglobin A1c Percent May 02, 2019 10:15am 5.34 % <5.7%: Normal5.7%-6.4% : Prediabetes>=6. 5%: Diagnostic for diabetesGoals for Glycemic Control in Diabetes (ADA 2018)<7.0%: A1c target for non adults with diabetes. More or less stringent glycemic goals may be appropriate for individual patients.<7.5%: A1c target for children and adolescents with type I diabetes. A lower goal is reasonable if it can be achieved without excessive hypoglycemia. MAIN LAB, [address] [place] [address] 02871 Estimated Average Glucose mg/dL October 02, 2019 10:38am 114 mg/dL MAIN LAB, [address] [place] [address] 06993 Estimated Average Glucose mg/dL May 02, 2019 10:15am 107 mg/dL MAIN LAB, [address] [facility] [address] Ferritin October 02, 2019 10:38am 16.1 ng/mL 22-322 The results of this assay can be falsely decreased in patients who consume Biotin. MAIN LAB, [address] [facility] [address] Ferritin May 02, 2019 10:15am 10.6 ng/mL 22-322 The results of this assay can be falsely decreased in patients who consume Biotin. MAIN LAB, [address] [facility] [address] Lyme Disease Antibodies Value March 04, 2020 11:29am Negative Negative New 3rd generation assay in use date 03/03/2020Test performed or referred by[address] Anaplasma phagocytophi la IgG Ab March 04, 2020 11:29am <1:64 titer ----ADDITIONAL INFORMATION---- This test was developed using an analyte specific reagent.Its performance characteristics were determined by [facility] in a manner consistent with CLIA requirements. Thistest has not been cleared or approved by the U.S. Food andDrug Administration. [facility] Ehrlichia chaffeensis IgG Antibody March 04, 2020 11:29am <1:64 titer ----ADDITIONAL INFORMATION---- This test was developed using an analyte specific reagent.Its performance characteristics were determined by [facility] in a manner consistent with CLIA requirements. Thistest has not been cleared or approved by the U.S. Food andDrug Administration. [facility] Lyme Disease Serology March 04, 2020 11:29am Negative Negative No evidence of antibodies to B. burgdorferi detected.False negative results may occur in recently infectedpatient s (<=2 weeks) due to low or undetectable antibodylevels to B. burgdorferi. If recent exposure is suspected,a second sample should be collected and tested in 2-4 weeks.Test Performed by:[facility] [place], [place] [address]Vtl Director: Virgilio Hicks M.D. Ph.D.; CLIA# [id number] [facility] Babesia microti IgG Antibody March 04, 2020 11:29am <1:64 titer ----ADDITIONAL INFORMATION---- This test was developed using an analyte specific reagent.Its performance characteristics were determined by [facility] in a manner consistent with CLIA requirements. Thistest has not been cleared or approved by the U.S. Food andDrug Administration. [facility] Advance Directives Advance Directive Response Recorded Date/ Time Does patient have an Advanced Directive? No January 30, 2012 10:45am Do we have a copy on file here at [facility]? No February 27, 2017 12:14pm Pt has a Living Will? No January 29 10:45am Do we have a copy on file here at [facility]? No February 27, 2017 12:14pm Pt has a Power of Payroll Specialist? No January 30, 2012 10:45am Do we have a copy on file here at [facility]? No February 27, 2017 12:14pm Chief Complaint and Reason for Visit Chief Complaint [id number] D64.9 insect bite of right shoulder Encounters Encounter Location(s) Arrival/Admit Date Discharge/Depart Date Provider(s) Departed Referred [facility] May 02, 2019 10:15am May 02, 2019 10:16am Camron Suarez MD Departed Referred [facility] July 02, 2019 7:14pm July 02, 2019 7:15pm CHECO Laird Departed Referred [facility] October 02, 2019 6:06pm October 02, 2019 6:07pm Camron Suarez MD Departed Referred [facility] March 04, 2020 6:11pm March 04, 2020 6:12pm Camron Suarez MD Departed Referred [facility] April 30, 2020 6:11pm April 30, 2020 6:12pm Rakan Ro MD Assessments No Assessments Information Available Family [...] Guarantor BERE EISENBERG Address [address] [place] [address] Contact Info. Home Phone: Payer Policy Id Coverage Id Subscriber's Name Subscriber Id Effective Date Expiration Date [place] [id number] BERE EISENBERG [id number] MEDICARE PART A AND B COVERAGE SELF PAY Self N/A [place] MED[place]ID (DO NOT USE) [id number] BERE EISENBERG [id number] 2016 Social History Smoking Status Status Date [...]
--- OUTSIDE RECORDS SUMMARY | 2023-05-11 02:34 | XMS_ITS | Continuity of Care Document ---
Author Name Unknown Address [address] [place] [address] Phone Organization [facility] Address [address] [place] [address] Phone Care Team Providers Care Peer Specialist Name Role Phone Camron Suarez Primary Care Provider Camron Suarez Attending Provider [phone] Allergies, Adverse Reactions, Alerts Allergen Type Severity Reaction Last Updated Verified Status aspirin Adverse Reaction Unknown bleeding September 03, 2015 1:00am Yes Active ibuprofen Adverse Reaction Unknown flank pain June 21, 2016 12:00am Yes Active acetaminophen Adverse Reaction makes sides ache October 01, 2018 10:24am Yes Active Social History Smoking Status Status Start Date End Date Date of Observa tion Ex-smoker (finding) September 24, 1987 September 24October 01, 2018 9:39am Observation Status Observation Response Date of Response Alcohol Heavy February 26, 2016 1 :28am Living Situation With Family January 30, 2016 9 :21am Alcohol Use Yes October 01 10:39am alcohol intake frequency 0-2 drinks per day March 18, 2018 2:18pm Substance/Street Drug Use No Januar y 2018 10:39am Smoking Status Former smoker October 01 10:39am Additional Data Assigned Sex Male Family History [...] Tear of right biceps muscle Reso lved Medications Medication Status Dose Units Route Directions Qty Days St art Date End Date Instructions Hydrochloroth iazide/Triamt er (HYDR OCHLOROTHIAZI DE/TRIAM 25 mg-37.5 mg) 1 CAP Cap Discontin ued 1 CAP PO DAILY February 29, 2012 12:00am Octobe r 2017 5:50pm Pantoprazole (Protonix) 40 MG tablet,delaye d release (DR/EC) Discontin ued 40 MG PO TWICE A DAY February 01, 2016 12:00am Octobe r 2017 5:49pm Take 1 tablet twice daily Phenobarbital Discontin ued 16.2 MG PO TWICE A DAY February 01, 2016 12:00am February 01, 2016 6:24pm Take 1/2 tablet by mouth twice daily, first dose Phenobarbital Discontin ued 32.4 MG PO THREE TIMES A DAY February 01, 2016 12:00am March 18, 2018 2:18pm Take 1 tablet by mouth every 8 hours (6AM, 2PM, 10PM) Phenobarbital Discontin ued 16.2 MG PO TWICE A DAY February 01, 2016 6:24pm March 18, 2018 2:18pm Take 1/2 tablet by mouth twice daily, first dose 02/03/16 10AM Ferrous Sulfate Active 325 MG PO DAILY October 01, 2018 1:00am Triamterene-H ydrochlorothi azid Active 1 TAB PO DAILY October 01, 2018 1:00am Ca Phos-Cranberr y-Milk Thistle (Liver-Kidney Cleanser) Capsule Active 1 TAB PO THREE TIMES A DAY October 01, 2018 1:00am Multivit-Min- Xsyq-Dqytt-Yt t K1 (Centrum Chewables) 8 mg-400 mcg- 10 mcg Tablet,Chewab le Active 1 TAB PO DAILY October 01, 2018 1:00am Relevant Diagnostic Tests and/or Laboratory Data Laboratory Results Test Date/Time Result Interpretation Reference Range Result Comment Performing Site White Blood Count April 19, 2022 2:12pm 3.81 1000/mm3 4.8-10.[address] [address] Red Blood Count April 19, 2022 2:12pm 4.23 M/mm3 4.70-6.00 [facility] [address] [facility] [address] Hemoglobin April 19, 2022 2:12pm 14.6 g/dL 14.0-18.0 [facility] [address] [facility] [address] Hematocrit April 19, 2022 2:12pm 42.3 % 42-[address] [address] Mean Corpuscular Volume April 19, 2022 2:12pm 100.0 fL 80.0-94.[address] [address] Mean Corpuscular Hemoglobin April 19, 2022 2:12pm 34.5 pg 27-[address] [address] Mean Corpuscular Hemoglobin Concent April 19, 2022 2:12pm 34.5 g/dL 33-[address] [address] Red Cell Distribution Width April 19, 2022 2:12pm 13.0 % 11.5-14.[address] [address] Platelet Count April 19, 2022 2:12pm 113 1000/mm3 140-[address] [address] Mean Platelet Volume April 19, 2022 2:12pm 11.9 fL 7.4-10.[address] [address] Sodium Level April 19, 2022 2:12pm 139 mmol/L 137-[address] [address] Potassium Level April 19, 2022 2:12pm 3.8 mmol/L 3.6-5.[address] [address] Chloride Level April 19, 2022 2:12pm 102 mmol/L 98-[address] [address] Carbon Dioxide Level April 19, 2022 2:12pm 22 mmol/L 22-[address] [address] Anion Gap April 19, 2022 2:12pm 15 7-[address] [address] Blood Urea Nitrogen April 19, 2022 2:12pm 8 mg/dL 8-[address] [address] Creatinine April 19, 2022 2:12pm 0.65 mg/dL 0.66-1.[address] [address] Glomerular Filtration Rate Calc April 19, 2022 2:12pm > 60 mL/min >60.[address] [address] Glucose Level April 19, 2022 2:12pm 103 mg/dL 70-[address] [address] Calcium Level April 19, 2022 2:12pm 9.2 mg/dL 8.4-10.[address] [address] Calcium Adjusted for Albumin April 19, 2022 2:12pm 9.4 mg/dL 8.4-10.[address] [address] Total Bilirubin April 19, 2022 2:12pm 0.8 mg/dL 0.2-1.[address] [address] Aspartate Amino Transf (AST/SGOT) April 19, 2022 2:12pm 77 U/L 17-[address] [address] Alanine Aminotransferase (ALT/SGPT) April 19, 2022 2:12pm 48 U/L <50 As of 01/23/20, the Reference Range for ALT/SGPT for adult patients has been updated. The Reference Range for ALT/SGPT has not been established for patients <18 years of age. MAIN LAB [address] [address] Total Protein April 19, 2022 2:12pm 8.0 g/dL 6.3-8.2 MAIN LAB [facility] [address] [facility] [address] Albumin April 19, 2022 2:12pm 4.1 g/dL 3.5-5.0 MAIN LAB [address] [address] Alkaline Phosphatase April 19, 2022 2:12pm 117 U/L 38-126 MAIN LAB [address] [address] Thyroid Stimulating Hormone (TSH) April 19, 2022 2:12pm 4.30 mlU/L 0.47-4.68 TSH cascade is not recommended for patients in which pituitary or hypothalmic disorders are suspected. MAIN LAB [address] [address] Ferritin April 19, 2022 2:12pm 213 ng/mL 22-322 The results of this assay can be falsely decreased in patients who consume Biotin. MAIN LAB [address] [address] Advance Directives Advance Directive Response Recorded Date/ Time Does patient have an Advanced Directive? No January 30, 2012 10:45am Do we [place] [facility] February 27, 2017 12:14pm Pt has a Living Will? No January 29 012 10:45am Do we have a [place] [facility] No February 27, 2017 12:14pm Pt has a Power of Outpatient Services Director? No January 30, 2012 10:45am Do we have a [place] [facility] No February 27, 2017 12:14pm Insurance Providers Guarantor BERE EISENBERG Address [address] [place] [id number] Contact Info. Home Phone: Payer Policy Id Coverage Id Subscriber's Name Subscriber Id Effective Date Expiration Date [facility] [id number] BERE EISENBERG [id number] MEDICARE PART A AND B COVERAGE [id number] BERE EISENBERG [id number] SELF PAY Self N/A [place] MEDICAID (DO NOT USE) [id number] BERE EISENBERG [id number] 2016 Encounters Encounter Location(s) Arrival/Admit Date Discharge/Depart Date Provider(s) Departed Referred [facility] April 19, 2022 6:36pm April 19, 2022 6:37pm Camron Suarez MD
[2023-05-11 14:26] LABS: Abs Immature Grans 0.01 10^3/uL (0.0-0.06); Absolute Basophil Count 0.07 10^3/uL (0.0-0.2); Absolute Eosinophil Count 0.16 10^3/uL (0.0-0.7); Absolute Lymphocyte Count 0.99 10^3/uL (1.2-3.4); Absolute Monocyte Count 0.46 10^3/uL (0.1-0.8); Absolute Neutrophil Count 2.56 10^3/uL (1.2-6.7); Basophils % 1.6; Eosinophils % 3.8; HCT 46.6 % (40.0-50.0); HGB 15.9 g/dL (13.5-17.5); Immature Grans % 0.2; Lymphocytes % 23.3; MCH 32.8 pg (27.0-33.0); MCHC 34.1 % (32.0-36.0); MCV 96 fL (80-95); MPV 10.4 fL (8.0-11.0); Monocytes % 10.8; Neutrophils % 60.3; Platelet Count 100 10^3/uL (130-400); RBC 4.85 10^6/uL (4.36-5.78); RDW 13.7 % (11.8-14.1); RDW-SD 48.5 fL; WBC 4.25 10^3/uL (4.4-10.8)
[2023-05-11 14:34] LABS: INR 1.3 (0.9-1.1); Prothrombin Time 13.7 sec (9.3-11.0)
[2023-05-11 14:49] LABS: ALT 37 U/L (16-63); AST 74 U/L (15-37); Albumin 2.8 g/dL (3.4-5.0); Alkaline Phosphatase 187 U/L (46-116); Anion Gap 11.5 mmol/L (3-11); BUN 7 mg/dL (7-18); Bilirubin, Total 1.7 mg/dL (0.2-1.0); CO2 23.5 mmol/L (21.0-32.0); CREATININE 0.7 mg/dL (0.70-1.30); Calcium 8.4 mg/dL (8.5-10.1); Chloride 105 mmol/L (98-107); Estimated GFR 100.37 (mL/min/1.73m2); FREE T4 0.85 ng/dL (0.76-1.46); Glucose 97 mg/dL (74-106); Potassium 3.6 mmol/L (3.5-5.1); Sodium 140 mmol/L (136-145); TSH 3.49 uIU/mL (0.36-3.74); Total Protein 7.9 g/dL (6.4-8.2)
== END 2023-05-11 02:32 | disposition home or self-care (01) ==
LOC: LBO 02:31
PROVIDERS: PCP Family Medicine; Visit Provider Internal Medicine Hematology & Oncology
DX: C22.0 Liver cell carcinoma (principal); Z79.899 Other long term (current) drug therapy
CPT/HCPCS: 36415; 80053; 82105; 84439; 84443; 85025; 85610

== ENCOUNTER 2023-06-22 03:26 | Outpatient (CLI) | payer MEDICARE, SELFPAY ==
[2023-06-22 12:34] LABS: Abs Immature Grans 0.01 10^3/uL (0.0-0.06); Absolute Basophil Count 0.05 10^3/uL (0.0-0.2); Absolute Eosinophil Count 0.15 10^3/uL (0.0-0.7); Absolute Lymphocyte Count 0.89 10^3/uL (1.2-3.4); Absolute Monocyte Count 0.63 10^3/uL (0.1-0.8); Absolute Neutrophil Count 2.17 10^3/uL (1.2-6.7); Basophils % 1.3; Eosinophils % 3.8; HCT 49.8 % (40.0-50.0); HGB 17.2 g/dL (13.5-17.5); Immature Grans % 0.3; Lymphocytes % 22.8; MCH 33.3 pg (27.0-33.0); MCHC 34.5 % (32.0-36.0); MCV 96 fL (80-95); MPV 10.3 fL (8.0-11.0); Monocytes % 16.2; Neutrophils % 55.6; Platelet Count 128 10^3/uL (130-400); RBC 5.17 10^6/uL (4.36-5.78); RDW 13.8 % (11.8-14.1); RDW-SD 49.1 fL
[2023-06-22 12:42] LABS: INR 1.4 (0.9-1.1); Prothrombin Time 14.2 sec (9.3-11.0)
[2023-06-22 12:58] LABS: ALT 46 U/L (16-63); AST 96 U/L (15-37); Albumin 2.9 g/dL (3.4-5.0); Alkaline Phosphatase 178 U/L (46-116); Anion Gap 10.2 mmol/L (3-11); BUN 12 mg/dL (7-18); Bilirubin, Total 2.1 mg/dL (0.2-1.0); CO2 26.8 mmol/L (21.0-32.0); Calcium 9.3 mg/dL (8.5-10.1); Chloride 97 mmol/L (98-107); Estimated GFR 81.98 (mL/min/1.73m2); FREE T4 1.06 ng/dL (0.76-1.46); Glucose 134 mg/dL (74-106); Potassium 3.2 mmol/L (3.5-5.1); Sodium 134 mmol/L (136-145); TSH 4.13 uIU/mL (0.36-3.74); Total Protein 8.9 g/dL (6.4-8.2)
[2023-06-25 08:16] LABS: AFP Tumor Marker 6.2 ng/mL (<8.1)
== END 2023-06-22 03:27 | disposition home or self-care (01) ==
LOC: LBO 03:26
PROVIDERS: PCP Family Medicine; Visit Provider Internal Medicine Hematology & Oncology
DX: Z79.899 Other long term (current) drug therapy (principal); C22.0 Liver cell carcinoma
CPT/HCPCS: 36415; 80053; 82105; 84439; 84443; 85025; 85610

== ENCOUNTER → 2025-07-27 10:58 | Outpatient (BNVA) | payer MEDICARE, SELFPAY | PROVIDERS: Visit Provider Podiatrist | DX: L97.512 Non-pressure chronic ulcer of other part of right foot with fat layer exposed (principal); L97.521 Non-pressure chronic ulcer of other part of left foot limited to breakdown of skin; M20.41 Other hammer toe(s) (acquired), right foot; M20.42 Other hammer toe(s) (acquired), left foot; L84 Corns and callosities | CPT/HCPCS: 11042; 93922; 97597 ==

== ENCOUNTER → 2025-07-27 12:51 | Outpatient (CLI) | payer MEDICARE, SELFPAY ==
--- NOTE | 2025-07-27 12:15 | DI.RAD_ITS ---
Exam(s) XR FOOT LT COMPLETE EXAM: XR FOOT LT COMPLETE CLINICAL HISTORY: planus of lt foot/ulcer of rt toe on rt foot. TECHNIQUE: 2D digital imaging was performed of the left foot. Three images were obtained. AP, oblique and lateral views were obtained. COMPARISON: There are no priors for comparison. FINDINGS: BONES: No acute fracture is present. No bony destructive lesion is seen. There is a large plantar calcaneal spur. JOINTS: No dislocation present. There is a hallux valgus deformity. The joint spaces are well maintained. SOFT TISSUE: Normal. IMPRESSION: 1. Hallux valgus deformity. 2. Plantar calcaneal spur. DATA REPOSITORY: RADIATION DOSE DELIVERED:
--- NOTE | 2025-07-27 12:15 | DI.RAD_ITS ---
Exam(s) XR TOE RT THIRD EXAM: XR TOE RT THIRD CLINICAL HISTORY: Osteomyelitis?. TECHNIQUE: 2D digital imaging was performed. Three images were obtained. COMPARISON: No exams were available for comparison FINDINGS: BONES: No acute fracture is present. No bony destructive lesion is seen. JOINTS: No dislocation present. SOFT TISSUE: There is soft tissue swelling of the 3rd toe. IMPRESSION: There is no radiographic evidence of osteomyelitis of the 3rd toe. DATA REPOSITORY: RADIATION DOSE DELIVERED:
== END ==
LOC: DI 12:52
PROVIDERS: Visit Provider Podiatrist
DX: L97.512 Non-pressure chronic ulcer of other part of right foot with fat layer exposed (principal); L97.521 Non-pressure chronic ulcer of other part of left foot limited to breakdown of skin; M21.42 Flat foot [pes planus] (acquired), left foot; M20.41 Other hammer toe(s) (acquired), right foot; R09.89 Other specified symptoms and signs involving the circulatory and respiratory systems
CPT/HCPCS: 11042; 93922; 97597; 99204; 73630; 73660